=== PATIENT | female | born 1980 | race Caucasian/White ===

== ENCOUNTER 2017-04-20 00:44 | Emergency (ER) | payer MEDICAID, SELFPAY ==
[2017-04-20 00:46] VITALS: BP 137/106; PULSE 91; RESP 16; TEMP 36.4; O2SAT 99
--- NOTE | 2017-04-20 01:16 | CT_ITS ---
STUDY: CT ABDOMEN AND PELVIS WITHOUT CONTRAST REASON FOR EXAM: Female, 37 years old. Four days chest pain in upper mid abdomen after eating. Headache, neck pain, radiating to posterior. Essure placement. RADIATION DOSAGE (If Supplied By Facility): CTDIvol = ( 10.67 ) mGy, DLP = ( 525.16 ) mGycm TECHNIQUE: Transaxial 2.5 mm images were obtained from the dome of the diaphragm to the symphysis pubis without oral contrast, and without intravenous contrast. Sagittal and coronal images were reconstructed. This examination is limited for the evaluation of gastrointestinal, solid organs and vascular structures due to the lack of intravenous and oral contrast. Individualized dose optimization techniques were used for this CT. COMPARISON: None. FINDINGS: The visualized lung bases are unremarkable. The visualized portions of the heart are within normal limits. Borderline size and low attenuation. Normal gallbladder and extrahepatic biliary system. Normal spleen. Normal pancreas. Normal bilateral adrenal glands. Normal right kidney. Normal left kidney. Normal visualized stomach. Normal small intestine. Normal colon. The appendix is visualized and appears normal. Normal abdominal aorta. Normal inferior vena cava. Normal retroperitoneum. Normal urinary bladder. Retroverted uterus contains an Essure type device. Normal-appearing adnexa. Normal abdominal wall. Normal osseous structures. CT/Abdomen/Pelvis without Cont IMPRESSION: Borderline hepatomegaly and hepatic steatosis. There is no acute abdomen and pelvic pathology. Electronically Signed: Nishi Martinez MD at 2:11 EST , Service support ,
--- NOTE | 2017-04-20 01:18 | ED.VISSUMM ---
- ER Visit Summary Date of Service: 04/20/17 Chief Complaint: [Abdominal pain] History of Present Illness: The patient is a 37 F [who presents the emergency department with abdominal pain. It is epigastric and bilateral upper quadrant spreads downwards. It is intermittent. It is worse after eating. She has had diarrhea after eating as well. She states is a stabbing pain. She feels like it is a reverse heartburn. She has had some associated nausea. It has lasted for about 1 hour tonight. No fevers or chills. It has been going on for the last 4 days. She never had similar pain in the past. She has had tubal coils but no other surgeries. She is otherwise healthy and takes no other medications. She does smoke. She denies alcohol use. Additionally complains of some right shoulder and neck pain that started this morning. She took purulent ibuprofen for this but it did not help. Physical Examination: [] Blood pressure 137/106 other vitals within normal limits WN WD NAD PERRL EOMI MMM NECK supple and nontender, no masses RRR no murmur rub or gallop, no peripheral edema, symmetric radial pulses CTAB no respiratory distress ABDOMEN is soft a and tender in the epigastric bilateral upper quadrants, normal bowel sounds, no distension, no rebound or guarding SKIN is warm and dry no rashes Alert and Oriented x3, CN II-XII in tact, no motor or sensory deficits, gait normal No lymphadenopathy Test Results: [] Emergency Department Course and Treatment: [Screening labs are unremarkable. Patient was feeling improved after morphine and Zofran in the emergency department. CT of abdomen was obtained gallbladder specifically is normal. She does have a borderline fatty liver. Results were discussed with the patient. She will be treated for gastritis. She is encouraged to follow-up with her primary physician as we did discuss the differential for upper quadrant abdominal pain which could still include gallbladder dysfunction. She is given precautions for which to return. She will be discharged home with Zofran and omeprazole Treatment Plan: [] Disposition: [Discharge] Impression: [Abdominal pain, bilateral upper quadrant] This note was generated with [employer] dictation software. It may contain incorrect words, spelling, and punctuation that were not noted in review of the chart prior to signing ED Disposition - Plan for ED Patient: Chief Complaint: Abd Pain Referrals: José Miguel Puente MD [Primary Care Provider] -
[2017-04-20] MEDS: Ondansetron 4 MG/2 ML Vial IV (01:33)
[2017-04-20 01:38] LABS: Absolute Lymphocyte Count 3.89 X10^3/ul (0.83-4.51); Absolute Neutrophil Count 4.9 X10^3/uL (2.0-7.7); Basophil# 0.02 X10^3/uL; Basophil% 0.2 % (0-1); Differential Indicated SCAN CRITERIA MET; Eosinophils% 3.1 % (0-5); Hemoglobin 14.2 g/dl (12.0-15.0); Lymphocyte # 3.89 X10^3/ul (4.0); Lymphocyte % 40.2 % (19-41); Mean Corpuscular Hgb 29.9 pg (27.0-32.0); Mean Corpuscular Volume 90.5 fL (81-99); Mean Platelet Vol. 9.8 fl (6.2-12.0); Monocyte# 0.54 X10^3/uL; Monocyte% 5.6 % (0-10); Neutrophil # 4.92 X10^3/uL (2.7-7.7); Neutrophil % 50.8 % (47-70); POSITIVE COUNT NO; POSITIVE DIFFERENTIAL NO; POSITIVE MORPHOLOGY YES; Platelet Count 350 K/mm3 (150-450); RBC Distribution Width CV 13.2 % (11.6-14.6); RBC Distribution Width SD 43.6 fl (35.1-43.9); Red Blood Count 4.75 M/mm3 (4.2-5.4); White Blood Count 9.7 K/mm3 (4.4-11.0)
[2017-04-20 01:43] LABS: Color, Urine Yellow (Yellow); Glucose, Dipstick Normal (Normal); Ketone-Dipstick 5 mg/dl (Negative); Leukocyte Esterase-Dipstick 25 /ul (Negative); Nitrite-Dipstick Negative (Negative); Occult Blood-Urine 50 /ul (Negative); Protein-Dipstick 30 mg/dl (Negative); Urine Bilirubin Dipstick Negative (Negative); Urine Clarity Cloudy (Clear); Urine Urobilinogen 1 mg/dl (Normal)
[2017-04-20 01:52] LABS: ALB/GLOB Ratio 0.9 RATIO (0.9-2.4); AST(SGOT) 15 U/L (15-37); Alanine Aminotransfer ALT/SGPT 34 U/L (13-56); Albumin, Serum 3.3 g/dL (3.2-5.0); Alkaline Phosphatase 90 U/L (45-117); Anion Gap 6 (5-15); BUN 16 mg/dL (7-18); BUN/Creat Ratio 24.4 RATIO (10-20); Calcium,Total 8.6 mg/dL (8.5-10.1); Chloride 109 mmol/L (98-107); Creatinine, Serum 0.66 mg/dL (0.55-1.02); EST Glomerular Filtration Rate 109 mL/min (>60); Est Glom Filt Rate - Afr Amer 132 mL/min (>60); Estimated Creatinine Clearance 102.74 ml/min; Globulin 3.5 g/dL (2.2-4.2); Glucose 106 mg/dL (74-106); Lipase 139 U/L (73-393); Potassium 3.7 mmol/L (3.5-5.1); Protein, Total 6.8 g/dL (6.4-8.2); Sodium Level 140 mmol/L (136-145)
[2017-04-20 01:56] LABS: Bacteria 1+ /hpf (None Seen); Mucous, Urine 2+ /hpf (<or=2+); Red Blood Cells-Urine 0-5 SEEN /hpf (0-5); Squamous Epithelial Cells - UA 0-5 SEEN /hpf (5-10); White Blood Cells 0-5 SEEN /hpf (0-5)
[2017-04-20 02:11] LABS: Differential Comment SCANNED
--- NOTE | 2017-04-20 02:32 | ED.DEP ---
ED Disposition - Plan for ED Patient: Chief Complaint: Abd Pain Instructions: ED Abdominal Pain Unkn Cause Prescriptions: Ondansetron [Zofran Odt] 4 mg PO Q8H PRN PRN #10 tablet PRN Reason: Nausea Omeprazole [Prilosec] 20 mg PO BID #28 capsule Referrals: José Miguel Puente MD [Primary Care Provider] - 3-5 Days
[2017-04-20 02:39] VITALS: BP 127/80; PULSE 77; RESP 18; O2SAT 100
== END 2017-04-20 02:40 | disposition home or self-care (01) ==
PROVIDERS: Emergency Provider Emergency Medicine; Family Provider Family Medicine; PCP Family Medicine
DX: R10.11 Right upper quadrant pain (principal); R10.12 Left upper quadrant pain; R51 Headache; R19.7 Diarrhea, unspecified; E66.9 Obesity, unspecified; F17.200 Nicotine dependence, unspecified, uncomplicated
CPT/HCPCS: 74176; 80053; 81001; 83690; 85025; 96374; 96375; 99283; J7030; A4216; J2405

== ENCOUNTER 2017-06-04 07:04 | Emergency (ER) | payer MEDICAID, SELFPAY ==
[2017-06-04 07:05] VITALS: BP 144/91; PULSE 90; RESP 16; TEMP 36.1; O2SAT 100; BMI 30.2
--- NOTE | 2017-06-04 07:16 | ED.VISSUMM ---
- ER Visit Summary Date of Service: 06/04/17 Chief Complaint: Painful lump left anterior neck History of Present Illness: The patient is a 37 F who has been ill with URI like symptoms for approximately a month. She was seen earlier this week at the urgent care and had blood work to assess her thyroid because of a palpable lump. She denies any hot or cold intolerance. She denies any polyp urea, polydipsia or polyphagia. She denies headache. She denies photophobia. She denies any change in her vision. She denies earache. She does complain of nasal congestion. She denies sore throat or difficulty breathing or swallowing. She denies change in voice. She localizes the pain left anterior cervical lymph node chain. She denies rash. She denies weight loss or weight gain. She does have a cough which is nonproductive. She denies dyspnea, dyspnea on exertion or chest discomfort. She has no GI symptoms. She denies myalgias or arthralgias. Physical Examination: Vital signs are remarkable for an elevated blood pressure of 144/91. HEENT exam is remarkable for nasal congestion. Posterior pharynx without erythema or exudate. Uvula midline. Trachea is midline. There is no stridor. She has a palpable mobile firm left anterior cervical node. Heart is regular without murmur, gallop or rub. S1 and S2 are normal. Lungs are clear to auscultation with good movement of air bilaterally. There is no rash or skin lesions noted. She is alert and oriented ?3. Test Results: None are indicated Emergency Department Course and Treatment: Patient was told my opinion of her condition and that she would receive a prescription for antibiotic. Treatment Plan: Azithromycin Disposition: Discharged to home with appropriate home-going instructions Impression: Cervical adenitis This note was generated with [employer] dictation software. It may contain incorrect words, spelling, and punctuation that were not noted in review of the chart prior to signing ED Disposition - Plan for ED Patient: Disposition: Home or Assisted Living Chief Complaint: General Illness Instructions: ED Cervical Adenitis Abx Tx Prescriptions: Azithromycin [Zithromax Z-Wilfred] 250 mg PO UD #1 box Referrals: José Miguel Puente MD [Primary Care Provider] - 10-14 Days if not better
== END 2017-06-04 07:38 | disposition home or self-care (01) ==
PROVIDERS: Emergency Provider Emergency Medicine; Family Provider Family Medicine; PCP Family Medicine
DX: I88.9 Nonspecific lymphadenitis, unspecified (principal); R03.0 Elevated blood-pressure reading, without diagnosis of hypertension; Z72.0 Tobacco use
CPT/HCPCS: 99282

== ENCOUNTER → 2017-11-24 14:07 | Outpatient (CLI) | payer MEDICAID, SELFPAY ==
--- NOTE | 2017-11-24 15:06 | NEURO ---
NCS and/or EMG Patient Report Ordering Doctor: Wilver Milton DATE OF SERVICE: 11/24/17 Lena Chaparro is a 37-year old female who presents for electrodiagnostic testing of the upper limbs. She reports progressively worsening numbness and tingling in both hands. Electrodiagnostic findings: Median motor nerve demonstrates prolonged distal latency with normal amplitude and reduced conduction velocity bilaterally. Ulnar motor responses are within normal limits bilaterally. Prolonged median sensory distal latency bilaterally. Normal ulnar and radial sensory responses. Normal median and ulnar f wave. On needle EMG, all muscles tested in the upper limbs show no evidence of denervation with normal motor unit action potentials. Electrodiagnostic impression: This is an abnormal study in the upper limbs 1. Electrodiagnostic findings demonstrate bilateral median mononeuropathy. This is consistent with a moderate to advanced bilateral carpal tunnel syndrome. If there are any further questions, please not hesitate to contact me
== END ==
PROVIDERS: Family Provider Family Medicine; PCP Family Medicine; Referring Provider Family Medicine; Visit Provider Family Medicine
DX: G56.03 Carpal tunnel syndrome, bilateral upper limbs (principal)
CPT/HCPCS: 95886; 95911

== ENCOUNTER 2017-11-25 02:28 | Emergency (ER) | payer MEDICAID, SELFPAY ==
--- NOTE | 2017-11-25 02:30 | RAD_ITS ---
STUDY: X-RAY - LEFT SHOULDER REASON FOR EXAM: Female, 37 years old. Pain TECHNIQUE: 4 view(s) of the shoulder. COMPARISON: None. FINDINGS: Normal glenohumeral articulation. Normal acromioclavicular joint. Normal acromion. Normal humeral head and visualized proximal humerus. The soft tissue structures are unremarkable. Normal visualized pulmonary apex. RAD/Shoulder min 2 Views IMPRESSION: Normal x-ray examination of the shoulder. No fractures. No degenerative changes. No calcific tendinitis. Electronically Signed: Jose Bocanegra MD at 3:20 EDT Tel , Service support ,
--- NOTE | 2017-11-25 05:00 | ED.VISSUMM ---
- ER Visit Summary Date of Service: 11/25/17 Chief Complaint: Left shoulder pain History of Present Illness: The patient is a 37 F presenting for evaluation secondary to left shoulder pain. Patient reports that this evening she had an onset of shoulder pain at about 1800. She reports that it is a continuous sharp pain worse with any sort of movement. Patient states that there was not any sort of injuries associated with this, but she does endorse that she had nerve conduction studies performed on her left arm today to evaluate carpal tunnel. Patient denies any fevers chills unintended weight loss. She denies any history of IV drug abuse. She states that the pain is bad with any sort of movement of the shoulder and she feels that there is popping involved with any time that she moves it. Physical Examination: Physical exam unremarkable except for upper extremity exam. Left upper extremity shows no pain with palpation of the hand wrist forearm or elbow. No pain on palpation of the shoulder. No overlying erythema warmth or joint effusion is appreciated. Patient has pain with range of motion, but she does have passive range of motion and I was not able to appreciate any sort of crepitus or frozen shoulder. She appears to have strength of her rotator cuff. Test Results: X-rays of the shoulder showed no evidence of acute pathology per my personal review and radiology Emergency Department Course and Treatment: Patient presented for evaluation secondary to shoulder pain. Pain was addressed with Toradol. X-rays were negative. Patient had improvement on repeat evaluation. At this point I believe the patient's shoulder pain likely is associated with positioning during her nerve conduction test today, and is most likely muscular in etiology. Seems unlikely that this would be a rotator cuff pathology, and I do not feel that this is infectious. Patient was recommended treatment with ibuprofen at home and follow-up with primary care as needed. Disposition: Discharge Impression: 1. Left shoulder pain This note was generated with [employer] dictation software. It may contain incorrect words, spelling, and punctuation that were not noted in review of the chart prior to signing ED Disposition - Plan for ED Patient: Referrals: Wilver Milton MD [Primary Care Provider] -
== END 2017-11-25 05:02 | disposition home or self-care (01) ==
LOC: ED 03:24
PROVIDERS: Emergency Provider Emergency Medicine; Family Provider Family Medicine; PCP Family Medicine
DX: M25.512 Pain in left shoulder (principal)
CPT/HCPCS: 73030; 96372; 99282

== ENCOUNTER 2018-03-06 23:49 | Emergency (ER) | payer MEDICAID, SELFPAY ==
[2018-03-06 23:50] VITALS: BP 115/79; PULSE 98; RESP 14; TEMP 37.2; O2SAT 95; BMI 27.2
--- NOTE | 2018-03-07 00:18 | ED.DCSUM_ITS ---
- ER Visit Summary Date of Service: 03/07/18 Chief Complaint: [Abscess to groin] History of Present Illness: The patient is a 38 F [presents to the emergency department with complaint of soft tissue swelling times 3 days just between her leg and her vagina. Patient states she has had cysts there in the past that have required lancing and drainage. Patient denies any fevers. Patient states that she is tried squeezing it but nothing is come out. Patient complains of pain with walking.] Physical Examination: [HEENT-PERRLA, EOMI. Cranial nerves II through XII grossly intact. TMs clear. Mucous membranes moist. No adenopathy. Cardiovascular-regular rate and rhythm without murmur or ectopy Lungs-clear to auscultation, chest wall stable without crepitus or subcu emphysema Abdomen-normoactive bowel sounds, soft, nontender, no rebound or rigidity, no peritoneal signs. Extremities-intact ?4, normal range of motion, normal pulses, atraumatic. Right groin-just lateral to the labia majora there is a soft tissue swelling measuring about 2 cm in length by 1 cm in width. There is spontaneous purulent drainage noted from it. With gentle pressure I was able to express moderate amount of purulent debris. No cellulitis noted.] Test Results: [None indicated] Emergency Department Course and Treatment: [Patient was given clindamycin 300 mill grams p.o.] Treatment Plan: [Patient will start on clindamycin given a prescription for 10 [place] for severe pain.] Disposition: [Discharged home in stable condition.] Impression: [Soft tissue abscess right groin-spontaneously draining] This note was generated with [employer] dictation software. It may contain incorrect words, spelling, and punctuation that were not noted in review of the chart lucy or to signing ED Disposition - Plan for ED Patient: Chief Complaint: Abscess Referrals: Wilver Milton MD [Primary Care Provider] -
--- NOTE | 2018-03-07 00:20 | DCINST.ED_ITS ---
ED Disposition - Plan for ED Patient: Chief Complaint: Abscess Instructions: ED Staph Infec Abx Tx Only Prescriptions: Hydrocodone Bitart/Apap 5-325 [[place] 5MG-325MG] 1 tab PO Q4H PRN PRN 2 Days #10 tab PRN Reason: Pain Clindamycin HCl [Cleocin] 300 mg PO Q6H #40 cap Referrals: Wilver Milton MD [Primary Care Provider] - 5-7 Days
[2018-03-07] MEDS: Clindamycin HCl 150 MG Capsule 300 MG PO (00:32)
[2018-03-07] MEDS: HYDROcodone Bitartrate/Apap 5/325 Tablet PO (00:32)
[2018-03-07 00:39] VITALS: BP 115/79; PULSE 95; RESP 15; O2SAT 95
--- OUTSIDE RECORDS SUMMARY | 2018-05-09 12:53 | XMS RPT_ITS ---
:1980 Author Organization OHIP Care Team Providers Name Role Phone KATHERINE LOZANO (SEAMLESS [employer]BE [employer]ER) Attending Unavailable YEN LÓPEZ (PA) Attending Unavailable YEN LÓPEZ (PA) Referring Unavailable YEN LÓPEZ (PA) Attending Unavailable YEN LÓPEZ (PA) Referring Unavailable RODOLFO MANRIQUEZ Referring Unavailable WILVER MILTON Attending Unavailable WILVER MILTON Referring Unavailable ROCKY PUCKETT (PA) Attending Unavailable LOGAN COLE Attending Unavailable WILVER MILTON Referring Unavailable LOGAN COLE Referring Unavailable LOGAN COLE Attending Unavailable LOGAN COLE Referring Unavailable LOGAN COLE Attending Unavailable LOGAN COLE Referring Unavailable LOGAN COLE Admitting Unavailable LOGAN COLE Attending Unavailable Wilver Milton Primary Care Unavailable Yamila Butt Attending Unavailable Wilver Milton Primary Care Unavailable Bird Urban Attending Unavailable Rodolfo Foster Primary Care Unavailable Jessica Leyva Attending Unavailable Rodolfo Foster Primary Care Unavailable Carroll Mendoza Attending Unavailable Wilver Milotn Attending Unavailable Wilver Milton Referring Unavailable Wilver Milton Primary Care Unavailable Volodymyr Sy Attending Unavailable Wilver Milton Primary Care Unavailable PROBLEMS PROBLEMS DATE TYPE CONDITION / CODE ATTENDING STATUS SOURCE 03/07/2018 Unknown L02.91 - UngYamila burgos Active [place] Cutaneous [facility] abscess, Hospital unspecified / Repository L02.91(ICD-10) 12/21/2017 Active Carpal tunnel COLE, LOGAN Active [facility] syndrome, left Other [place] upper limb / Repository G56.02(ICD-10) 09/14/2017 Active Bipolar disorder, NA Active [facility] unspecified / [facility] [place] F31.9(ICD-10) Repository 09/14/2017 Active [address] Active [facility] screening for Main [place] lipoid disorders Repository / Z13.220(ICD-10) 06/02/[address] [facility] thyroid nodule / [facility] [place] E04.1(ICD-10) Repository 05/14/2017 Active Pain in left knee NA Active [facility] / M25.562(ICD-10) [facility] [place] Repository 05/14/2017 Active Effusion, left NA Active [facility] knee / [facility] [place] M25.462(ICD-10) Repository 05/14/2017 Active Other tear of Active [facility] medial meniscus, [facility] [place] current injury, Repository left knee, initial encounter / S83.242A(ICD-10) PROCEDURES PROCEDURES No Procedure Records FoundRESULTS RESULTS EMERGENCY DEPARTMENT Observed: 03/10/2018 Status: F Source: [place] SUMMARY 10:03 PM [facility] [place] [facility] Medical Records Department [address] [place] [address] Emergency Department Summary 03/10/18 2201 MR#: [id number] Acct: [id number] Name: LENA LARA Kj Rep #: [id number] : 1980 38 From: Bird Urban MD PCP: Wilver Milton MD Status: REG ER - ER Visit Summary Date of Service: 03/10/18 Chief Complaint: Chest burning History of Present Illness: The patient is a 38 F who is burning in her chest. It started an hour ago. She describes burning in the retrosternal area. Nothing makes it better or worse. She does have a history of GERD. She tried milk without any relief. She was concerned because her mom had a heart attack and had a similar presentation. Physical Examination: Vital signs reviewed. HEENT exam unremarkable. Heart is regular rate and rhythm without murmurs. Lungs are clear to auscultation. She does have chest tenderness to palpation in the midsternal area. Abdomen is soft and nontender. Extremities reveal no edema. Skin exam normal. Neurologic exam normal. Test Results: EKG was normal sinus rhythm with a T wave inversion in lead III only. No other ST changes Emergency Department Course and Treatment: Patient was given a GI cocktail and feels much better. I feel this is likely GERD. I will send the patient home with [facility]. She will follow-up with her PCP. Treatment Plan: [] Disposition: Discharge Impression: GERD This note was generated with Cardiio dictation software. It may contain incorrect words, spelling, and punctuation that were not noted in review of the chart prior to signing ED Disposition - Plan for ED Patient: Chief Complaint: Chest Pain Referrals: Wilver Milton MD [Primary Care Provider] - What to do if you have Problems For any increased pain, shortness of breath, bleeding, nausea or vomiting, chest pain, or any unexpected problems, contact your Primary Care Provider. Call [facility] ([phone]) or report to the closest Emergency Room. Call 911 if necessary. 03/10/182202 <Electronically signed by Bird Urban MD> Date Bird Urban MD Cosigner Signature (If Indicated): Date CC: Wilver Milton MD DISCHARGE INSTRUCTION Observed: 03/10/2018 Status: F Source: [place] 10:03 PM [facility] [place] [facility] [facility] Medical Records Department [address] [place] [address] Discharge Instruction 03/10/182202 MR#: [id number] Acct: [id number] Name: LENA LARA Rep #: [id number] : 1980 38 From: Bird Urban MD PCP: Wilver Milton MD Status: REG ER ED Disposition - Plan for ED Patient: Disposition: Home or Assisted Living Chief Complaint: Chest Pain Instructions: ED GERD Prescriptions: Omeprazole [Prilosec] 20 mg PO DAILY #30 cap Referrals: Wilver Milton MD [Primary Care Provider] - What to do if you have Problems For any increased pain, shortness of breath, bleeding, nausea or vomiting, chest pain, or any unexpected problems, contact your Primary Care Provider. Call [facility] ([phone]) or report to the closest Emergency Room. Call 911 if necessary. 03/10/182202 <Electronically signed by Bird Urban MD> Date Bird Urban MD Cosigner Signature (If Indicated): Date CC: Wilver Milton MD DISCHARGE INSTRUCTION Observed: 03/07/2018 Status: F Source: [place] 12:20 AM [facility] Medical Records Department [address] [place] [address] Discharge Instruction 03/07/18 0018 MR#: [id number] Acct: [id number] Name: LENA LARA Rep #: [id number] : 1980 38 From: Yamila Butt DO PCP: Wilver Milton MD Status: PRE ER ED Disposition - Plan for ED Patient: Chief Complaint: Abscess Instructions: ED Staph Infec Abx Tx Only Prescriptions: Hydrocodone Bitart/Apap 5-325 [Rembert 5MG-325MG] 1 tab PO Q4H PRN PRN 2 Days #10 tab PRN Reason: Pain Clindamycin HCl [Cleocin] 300 mg PO Q6H #40 cap Referrals: Wilver Milton MD [Primary Care Provider] - 5-7 Days What to do if you have Problems For any increased pain, shortness of breath, bleeding, nausea or vomiting, chest pain, or any unexpected problems, contact your Primary Care Provider. Call [facility] ([phone]) or report to the closest Emergency Room. Call 911 if necessary. 03/07/18 0020 <Electronically signed by Yamila Butt DO> Date Yamila Butt DO Cosigner Signature (If Indicated): Date CC: Wilver Milton MD EMERGENCY DEPARTMENT Observed: 03/07/2018 Status: F Source: [place] SUMMARY 12:18 AM [facility] [place] [facility] [facility] Medical Records Department [address] [place] [address] Emergency Department Summary 03/07/18 0016 MR#: [id number] Acct: [id number] Name: LENA LARA Rep #: [id number] : 1980 38 From: Yamila Butt DO PCP: Wilver Milton MD Status: PRE ER - ER Visit Summary Date of Service: 03/07/18 Chief Complaint: [Abscess to groin] History of Present Illness: The patient is a 38 F [presents to the emergency department with complaint of soft tissue swelling times 3 days just between her leg and her vagina. Patient states she has had cysts there in the past that have required lancing and drainage. Patient denies any fevers. Patient states that she is tried squeezing it but nothing is come out. Patient complains of pain with walking.] Physical Examination: [HEENT-PERRLA, EOMI. Cranial nerves II through XII grossly intact. TMs clear. Mucous membranes moist. No adenopathy. Cardiovascular-regular rate and rhythm without murmur or ectopy Lungs-clear to auscultation, chest wall stable without crepitus or subcu emphysema Abdomen-normoactive bowel sounds, soft, nontender, no rebound or rigidity, no peritoneal signs. Extremities-intact 4, normal range of motion, normal pulses, atraumatic. Right groin-just lateral to the labia majora there is a soft tissue swelling measuring about 2 cm in length by 1 cm in width. There is spontaneous purulent drainage noted from it. With gentle pressure I was able to express moderate amount of purulent debris. No cellulitis noted.] Test Results: [None indicated] Emergency Department Course and Treatment: [Patient was given clindamycin 300 mill grams p.o.] Treatment Plan: [Patient will start on clindamycin given a prescription for 10 Rembert for severe pain.] Disposition: [Discharged home in stable condition.] Impression: [Soft tissue abscess right groin-spontaneously draining] This note was generated with Cardiio dictation software. It may contain incorrect words, spelling, and punctuation that were not noted in review of the chart prior to signing ED Disposition - Plan for ED Patient: Chief Complaint: Abscess Referrals: Wilver Milton MD [Primary Care Provider] - What to do if you have Problems For any increased pain, shortness of breath, bleeding, nausea or vomiting, chest pain, or any unexpected problems, contact your Primary Care Provider. Call [facility] ([phone]) or report to the closest Emergency Room. Call 911 if necessary. 03/07/18 0018 <Electronically signed by Yamila Butt DO> Date Yamila Butt DO Cosigner Signature (If Indicated): Date CC: Wilver Milton MD PROGRESS Observed: 02/28/2018 Status: COMPLETED Source: [place] 1:40 PM [facility] [place] REPOSITORY HNO ID: [id number] Author: Anabel Gomez Ma Service: (none) Author Type: (none) Type: Progress Notes Filed: 02/28/2018 1:56 PM Note Text: PT ASSESSMENT - CASTING ROOM Lena presents for Application of brace. Applied Chela and Naik Gel wrist brace to Left wrist. Patient tolerated well. Patient has been instructed in Care and proper application of brace. Patient tolerated well. Anabel Gomez Ma PROGRESS Observed: 02/28/2018 Status: COMPLETED Source: [place] 1:32 PM [facility] REPOSITORY HNO ID: [id number] Author: Logan Cole Service: (none) Author Type: Physician Type: Progress Notes Filed: 02/28/2018 1:56 PM Note Text: Logan Cole MD Department of Orthopaedics Orthopaedics [address] [facility] [address] Dept: [phone] Dept February 28, 2018 CHIEF COMPLAINT: Post Op (6 week 3 days post op left CTR). ASSESSMENT: G56.02 Carpal tunnel syndrome of left wrist (primary encounter diagnosis) SUMMARY/PLAN: patient is 6 weeks as post left carpal tunnel release. She's doing very well. She had quite a bit of discomfort directly after surgery but over time now she is very pleased with her results. She would like to hold off on the right side for a while. She'll get back in touch with the office if her when she decides to go forward with the right. In the meantime, we'll give her a gel brace for the left palm. Exam: surgical site is healed nicely. Full range of motion. Neurovascular exam intact. Supporting Information Below: Medications: No current outpatient prescriptions on file. No current facility-administered medications for this visit. Allergies: Vagistat-1 [Tioconazole] This note was partially generated using Cardiio voice recognition system, and there may be some incorrect words, spellings, and punctuation that were not noted in checking the note before saving. Logan Cole MD PROGRESS Observed: 02/28/2018 Status: COMPLETED Source: [place] 1:03 PM [facility] REPOSITORY HNO ID: [id number] Author: Klaudia Boateng Ma Service: (none) Author Type: (none) Type: Progress Notes Filed: 02/28/2018 1:56 PM Note Text: AMB ROOMING INTAKE FLOWSHEET DATA Risk Screening Do you have concerns about personal safety or safety in the home?: No Pain Pain Score: 3/10 Pain Location: Hand-Left Description: Other: See comment (deep bruise) Duration Amount of Time: (post op) Frequency: Continuous Intervention: Other: See comment (none) Patient here today for 6 week 3 days post op left CTR. States she has received comments about how red the incision area is. Area feels like a deep bruise. Would like to get a gel brace today. JDOV Observed: 02/28/2018 Status: COMPLETED Source: [place] 1:00 PM [facility] REPOSITORY Office Visit (ORTHWS) LENA LARA ([id number]) 1980 F Date Time Provider Department 02/28/18 1:00 PM LOGAN COLE During your visit today, we recorded the following information about you: Klaudia Boateng Ma 02/28/2018 1:56 PM Signed AMB ROOMING INTAKE FLOWSHEET DATA Risk Screening Do you have concerns about personal safety or safety in the home?: No Pain Pain Score: 3/10 Pain Location: Hand-Left Description: Other: See comment (deep bruise) Duration Amount of Time: (post op) Frequency: Continuous Intervention: Other: See comment (none) Patient here today for 6 week 3 days post op left CTR. States she has received comments about how red the incision area is. Area feels like a deep bruise. Would like to get a gel brace today. Logan Cole MD 02/28/2018 1:56 PM Signed Logan Cole MD Department of Orthopaedics Orthopaedics [address] [facility] [address] Dept: [phone] Dept February 28, 2018 CHIEF COMPLAINT: Post Op (6 week 3 days post op left CTR). ASSESSMENT: G56.02 Carpal tunnel syndrome of left wrist (primary encounter diagnosis) SUMMARY/PLAN: patient is 6 weeks as post left carpal tunnel release. She's doing very well. She had quite a bit of discomfort directly after surgery but over time now she is very pleased with her results. She would like to hold off on the right side for a while. She'll get back in touch with the office if her when she decides to go forward with the right. In the meantime, we'll give her a gel brace for the left palm. Exam: surgical site is healed nicely. Full range of motion. Neurovascular exam intact. Supporting Information Below: Medications: No current outpatient prescriptions on file. No current facility-administered medications for this visit. Allergies: Vagistat-1 [Tioconazole] This note was partially generated using Cardiio voice recognition system, and there may be some incorrect words, spellings, and punctuation that were not noted in checking the note before saving. MD Anabel Pacheco Ma 02/28/2018 1:56 PM Signed PT ASSESSMENT - CASTING ROOM Lena presents for Application of brace. Applied Chela and Naik Gel wrist brace to Left wrist. Patient tolerated well. Patient has been instructed in Care and proper application of brace. Patient tolerated well. Anabel Gomez Ma Referring Provider: LOGAN COLE [[id number]] Allergies As of Date: 02/28/2018 Noted Allergy Reaction VAGISTAT-1 (TIOCONAZOLE) 01/30/2005 7 - Swelling Date Reviewed: 02/28/2018 Reviewed by: Logan Cole - Fully Assessed Reason for Visit: Post Op [174] Cmt: 6 week 3 days post op left CTR Primary Visit Diagnosis:Carpal tunnel syndrome of left wrist [G56.02] Problem List As Of Date 02/28/2018 Noted Resolved ABNL FINDINGS ON SCREEN [O28.9] INVALID FOR*10/26/2007 SUPRF HIGH RISK NEC [O09.899] INVALID FOR*10/26/2007 ABDOMINAL PAIN RUQ [R10.11] INVALID FOR*10/26/2007 Bipolar disorder, unspecified (HCC) [F31.9] INVALID FOR* More... FIBROADENOSIS OF BREAST [N60.29] SEBACEOUS CYST [L72.3] INVALID FOR* Chronic pain of left knee [M25.562, G89.29] INVALID FOR* Mixed hyperlipidemia [E78.2] INVALID FOR* Carpal tunnel syndrome of left wrist [G56.02] INVALID FOR* More... Gastroesophageal reflux disease [K21.9] INVALID FOR* Encounter Status:Closed by LOGAN COLE MD on 02/28/18 PROGRESS Observed: 01/24/2018 Status: COMPLETED Source: [place] 1:43 PM [facility] REPOSITORY HNO ID: [id number] Author: Klaudia Boateng Ma Service: (none) Author Type: (none) Type: Progress Notes Filed: 01/24/2018 1:53 PM Note Text: Patient presents for suture removal. The wound is well healed without signs of infection. 2 sutures are removed. Patient given verbal instructions on how to care for wound. She verbalized understanding. PROGRESS Observed: 01/24/2018 Status: COMPLETED Source: [place] 1:43 PM [facility] REPOSITORY HNO ID: [id number] Author: Logan Cole Service: (none) Author Type: Physician Type: Progress Notes Filed: 01/24/2018 1:53 PM Note Text: Logan Cole MD Department of Orthopaedics Orthopaedics [address] [place] [address] Dept: [phone] Dept January 24, 2018 CHIEF COMPLAINT: Surgical Followup (1 week 3 days post left CTR). ASSESSMENT: G56.02 Carpal tunnel syndrome of left wrist (primary encounter diagnosis) SUMMARY/PLAN: patient is a 10 days status was left carpal tunnel release. She's doing very well and has only minimal and appropriate discomfort. She has significant improvement in her preoperative symptoms. She will consider getting the right one done at some point down the line but would like to get the left hand completely recovered. follow-up as needed Supporting Information Below: Medications: No current outpatient prescriptions on file. No current facility-administered medications for this visit. Allergies: Vagistat-1 [Tioconazole] This note was partially generated using Cardiio voice recognition system, and there may be some incorrect words, spellings, and punctuation that were not noted in checking the note before saving. Logan Cole MD PROGRESS Observed: 01/24/2018 Status: COMPLETED Source: [place] 1:18 PM [facility] REPOSITORY HNO ID: [id number] Author: Anabel Gomez Ma Service: (none) Author Type: (none) Type: Progress Notes Filed: 01/24/2018 1:53 PM Note Text: Patient presents with: Surgical Followup: 1 week 3 days post left CTR AMB ROOMING INTAKE FLOWSHEET DATA Risk Screening Do you have concerns about personal safety or safety in the home?: No Pain Pain Score: 6/10 Pain Location: Hand-Left Description: Sore Duration Amount of Time: 10 Duration Units: Days Frequency: Intermittent Sutures intact. No redness or drainage. Has some soreness with certain movements of her hand. Taking no med's for the pain. CNOV Observed: 01/24/2018 Status: COMPLETED Source: [place] 1:10 PM [facility] REPOSITORY Office Visit (ORTHWS) LENA LARA ([id number]) 1980 F Date Time Provider Department 01/24/18 1:10 PM LOGAN COLE During your visit today, we recorded the following information about you: Anabel Gomez Chantal 01/24/2018 1:53 PM Signed Patient presents with: Surgical Followup: 1 week 3 days post left CTR AMB ROOMING INTAKE FLOWSHEET DATA Risk Screening Do you have concerns about personal safety or safety in the home?: No Pain Pain Score: 6/10 Pain Location: Hand-Left Description: Sore Duration Amount of Time: 10 Duration Units: Days Frequency: Intermittent Sutures intact. No redness or drainage. Has some soreness with certain movements of her hand. Taking no med's for the pain. Logan Cole MD 01/24/2018 1:53 PM Signed Logan Cole MD Department of Orthopaedics Orthopaedics [address] [facility] [address] Dept: [phone] Dept January 24, 2018 CHIEF COMPLAINT: Surgical Followup (1 week 3 days post left CTR). ASSESSMENT: G56.02 Carpal tunnel syndrome of left wrist (primary encounter diagnosis) SUMMARY/PLAN: patient is a 10 days status was left carpal tunnel release. She's doing very well and has only minimal and appropriate discomfort. She has significant improvement in her preoperative symptoms. She will consider getting the right one done at some point down the line but would like to get the left hand completely recovered. follow-up as needed Supporting Information Below: Medications: No current outpatient prescriptions on file. No current facility-administered medications for this visit. Allergies: Vagistat-1 [Tioconazole] This note was partially generated using Cardiio voice recognition system, and there may be some incorrect words, spellings, and punctuation that were not noted in checking the note before saving. MD Klaudia Pacheco Ma 01/24/2018 1:53 PM Signed Patient presents for suture removal. The wound is well healed without signs of infection. 2 sutures are removed. Patient given verbal instructions on how to care for wound. She verbalized understanding. Referring Provider: LOGAN COLE [[id number]] Allergies As of Date: 01/24/2018 Noted Allergy Reaction VAGISTAT-1 (TIOCONAZOLE) 01/30/2005 7 - Swelling Date Reviewed: 01/24/2018 Reviewed by: Logan Cole - Fully Assessed Reason for Visit: Surgical Followup [104] Cmt: 1 week 3 days post left CTR Primary Visit Diagnosis:Carpal tunnel syndrome of left wrist [G56.02] Problem List As Of Date 01/24/2018 Noted Resolved ABNL FINDINGS ON SCREEN [O28.9] INVALID FOR*10/26/2007 SUPRF HIGH RISK NEC [O09.899] INVALID FOR*10/26/2007 ABDOMINAL PAIN RUQ [R10.11] INVALID FOR*10/26/2007 Bipolar disorder, unspecified (HCC) [F31.9] INVALID FOR* More... FIBROADENOSIS OF BREAST [N60.29] SEBACEOUS CYST [L72.3] INVALID FOR* Chronic pain of left knee [M25.562, G89.29] INVALID FOR* Mixed hyperlipidemia [E78.2] INVALID FOR* Carpal tunnel syndrome of left wrist [G56.02] INVALID FOR* More... Gastroesophageal reflux disease [K21.9] INVALID FOR* Encounter Status:Closed by LOGAN COLE MD on 01/24/18 NURSING PROG Observed: 01/14/2018 Status: COMPLETED Source: [place] 1:33 PM [facility] REPOSITORY HNO ID: [id number] Author: Erica (RnDavid Sorensen RN Service: Nursing Author Type: Registered Nurse Type: Nursing Progress Note Filed: 01/14/2018 1:34 PM Note Text: Nursing Progress Note Patient Name: Lena Lara Patient Location: [facility] 1307 iV removed. Site without redness or swelling. Homegoing instructions given. Pt verbalizes understanding. 1312 Pt discharged to home via wheelchair to car accomp by staff and family in stable cond. This note was completed by: Erica Sorensen RN PT ED Observed: 01/14/2018 Status: COMPLETED Source: [place] 1:32 PM [facility] [place] REPOSITORY HNO ID: [id number] Author: Erica Dimas) ALBERT Sorensen Service: Nursing Author Type: Registered Nurse Type: Patient Education Filed: 01/14/2018 1:33 PM Note Text: POST OP LEARNING RESPONSE INSTRUCTION PROVIDED TO: Patient and family member METHOD OF INSTRUCTION: Individual instruction Written instruction - handouts Verbal instruction PATIENT / FAMILY RESPONSE: Information received as demonstrated by interest and questions FOLLOW-UP PLAN: Patient instructed to call with any further issues SUPPLEMENTAL MATERIAL: Post op discharge instructions REFERRAL (RECOMMENDATION): None Electronically Signed By: Erica Sorensen RN In Department: [facility] SURGERY ANES POST Observed: 01/14/2018 Status: COMPLETED Source: [place] 1:12 PM [facility] [place] REPOSITORY HNO ID: [id number] Author: García Lucas Service: Anesthesiology Author Type: Anesthesiologist Type: Anesthesia PostOp Filed: 01/14/2018 3:18 PM Note Text: POST ANESTHESIA EVALUATION NOTE SERVICE DATE: 01/14/2018 SERVICE TIME: 1300 : 1980 Vitals: 01/14/18 0937 01/14/18 1130 Temp: 36.8 ?C (98.2 ?F) 36.1 ?C (97 ?F) 01/14/18 1130 01/14/18 1145 01/14/18 1200 01/14/18 1215 BP: 118/63 122/60 103/62 104/62 01/14/18 1130 01/14/18 1145 01/14/18 1200 01/14/18 1215 Pulse: 108 96 89 84 01/14/18 1130 01/14/18 1145 01/14/18 1200 01/14/18 1215 Resp: 16 16 16 16 01/14/18 1130 01/14/18 1145 01/14/18 1200 01/14/18 1215 SpO2: 95% 93% 93% 93% Validated Vital Signs: Yes POST ANES STATUS: No apparent anesthetic complications. The patient is appropriately hydrated with stable respiratory and cardiovascular status. Patient has safe and adequate airway control. The patient has appropriate pain relief and no significant post operative nausea or vomiting. The patient has achieved baseline mental status. Further assessment by Anesthesia Service: None Other Remarks: SIGNATURE: García Lucas MD PATIENT NAME: Lena Lara DATE: January 14, 2018 TIME: 3:18 PM PAGER/CONTACT #: [phone] NURSING PROG Observed: 01/14/2018 Status: COMPLETED Source: [place] 11:53 AM [facility] REPOSITORY HNO ID: [id number] Author: Anay HolmRn) ALBERT Bravo Service: Nursing Author Type: Registered Nurse Type: Nursing Progress Note Filed: 01/14/2018 12:21 PM Note Text: 1130 Received from or Drowsy No c/o pain 1142 Pt shivering Demerol 12.5mg iv 1150 Shivering stopped 1210 Pt comfortable OPERATIVE NO Observed: 01/14/2018 Status: COMPLETED Source: [place] 10:51 AM [facility] REPOSITORY HNO ID: [id number] Author: Logan Cole Service: Orthopaedic Surgery Author Type: Physician Type: Operative Report Filed: 01/14/2018 1:14 PM Note Text: [place] [address] [place] OPERATIVE REPORT NAME:Lena Lara [id number] DATE: January 14, 2018 AGE: [age] year old SURGEON 1: Logan Cole M.D. OPERATION: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 Extremities: No deformities, edema, skin discoloration, clubbing or cyanosis. Good capillary refill. Peripheral pulses: Normal Neuro: Gait normal. ASSESSMENT/PLAN: 1. Gastritis without bleeding, unspecified chronicity, unspecified gastritis type - ICD9: 535.50, ICD10: K29.70 (primary diagnosis) - OMEPRAZOLE 20 MG CAPSULE,DELAYED RELEASE Continue omeprazole X 1 month. Written info on gastritis provided. Encouraged bland diet. Encouraged smoking cessation. 2. Tobacco abuse - ICD9: 305.1, ICD10: Z72.0 - Cessation encouraged. 3. Hematochezia - ICD9: 578.1, ICD10: K92.1 - FECAL OCCULT BLOOD TEST (encouraged to wait until gastritis is improved prior to collection). Discussed treatment plan and patient voices understanding. Patient's questions answered appropriately. Medications and potential side effects were discussed and patient voices understanding. Return to the office as scheduled or as needed for worsening/no improvement. PHILLIP Mckeon CNP 04/21/2017 10:33 AM Signed 1. Continue omeprazole for a month. 2. [place] diet. 3. Review handout on gastritis. 4. Try to quit smoking. 5. Do the stool test. 6. Recheck in a month. Referring Provider: SELF [200] Allergies As of Date: 04/21/2017 Noted Allergy Reaction VAGISTAT-1 (TIOCONAZOLE) 01/30/2005 7 - Swelling Date Reviewed: 04/21/2017 Reviewed by: Shari Salgado Care Specialist - Fully Assessed Reason for Visit: Pain [78] Cmt: patient having pain in uper abdomen below breasts Primary Visit Diagnosis:Gastritis without bleeding, unspecified chronicity, unspecified gastritis type [K29.70] Other Visit Diagnoses:Tobacco abuse [Z72.0] Hematochezia [K92.1] Order(s):omeprazole (PRILOSEC) 20 mg capsuleTake 1 capsule by mouth daily before breakfast.Disp: 30 capsuleRfl: 1 FECAL OCCULT BLOOD TEST [SQIFOBT] Order #: [id number] FUTURE Prescriptions as of 04/21/2017 Sig: CYCLOBENZAPRINE 10 MG TABLET Take 1 tablet by mouth daily * OMEPRAZOLE 20 MG CAPSULE,GOKUL* Take 1 capsule by mouth daily* Problem List As Of Date 04/21/2017 Noted Resolved ABNL FINDINGS ON SCREEN [O28.9] INVALID FOR*10/26/2007 SUPRF HIGH RISK NEC [O09.899] INVALID FOR*10/26/2007 ABDOMINAL PAIN RUQ [R10.11] INVALID FOR*10/26/2007 BIPOLAR DISORDER NOS [F31.9] INVALID FOR* FIBROADENOSIS OF BREAST [N60.29] SEBACEOUS CYST [L72.3] INVALID FOR* Chronic pain of left knee [M25.562, G89.29] INVALID FOR* Other instructions from your clinician: 1. Continue omeprazole for a month. 2. [place] diet. 3. Review handout on gastritis. 4. Try to quit smoking. 5. Do the stool test. 6. Recheck in a month. Prescriptions ordered this encounter Disp Refills Start End OMEPRAZOLE 20 MG CAPSULE,DELAYED REL* 30 c* 1 04/21/2017 Route: ORAL Sig: Take 1 capsule by mouth daily before breakfast. Medications Discontinued During This Encounter meloxicam (MOBIC) 15 mg tablet 30 t* 0 11/09/2016 04/21/2017 Route: ORAL Sig: Take 1 tablet by mouth once daily. Disc: Course of therapy completed lamoTRIgine (LAMICTAL) 25 mg tablet 04/08/2016 04/21/2017 Class: Med Update Route: ORAL Sig: Take 1 tablet by mouth twice daily. Disc: Discontinued by Patient Cosign accepted by RODOLFO FOSTER MD[[id number]] on 04/08/2016 2:53 PM hydrOXYzine HCl (ATARAX) 25 mg tablet 04/08/2016 04/21/2017 Class: Med Update Route: ORAL Sig: Take 1 tablet by mouth every 8 hours as needed. Disc: Discontinued by another Health Care Provider Cosign accepted by RODOLFO FOSTER MD[[id number]] on 04/08/2016 2:53 PM Level of Service: EST PATIENT VISIT LEVEL 3 [60773] Disposition: Return in about 1 month (around 05/22/2017), or if symptoms worsen or fail to improve, for recheck gastritis. Follow-up and Disposition History Recorded Encounter Status:Closed by KATHERINE LOZANO CNP on 04/21/17 DISCHARGE INSTRUCTION Observed: 04/20/2017 Status: F Source: [place] 2:33 AM [facility] Medical Records Department [address] [place] [address] Discharge Instruction 04/20/17231 MR#: [id number] Acct: [id number] Name: LENA LARA Rep #: [id number] : 1980 37 From: Jessica Leyva PCP: Rodolfo Foster MD Status: REG ER ED Disposition - Plan for ED Patient: Chief Complaint: Abd Pain Instructions: ED Abdominal Pain Unkn Cause Prescriptions: Ondansetron [Zofran Odt] 4 mg PO Q8H PRN PRN #10 tablet PRN Reason: Nausea Omeprazole [Prilosec] 20 mg PO BID #28 capsule Referrals: Rodolfo Foster MD [Primary Care Provider] - 3-5 Days What to do if you have Problems For any increased pain, shortness of breath, bleeding, nausea or vomiting, chest pain, or any unexpected problems, contact your Primary Care Provider. Call [facility] ([phone]) or report to the closest Emergency Room. Call 911 if necessary. 04/20/17 0233 <Electronically signed by Jessica Leyva > Date Jessica Leyva Cosigner Signature (If Indicated): Date CC: Rodolfo Foster MD EMERGENCY DEPARTMENT Observed: 04/20/2017 Status: F Source: [place] SUMMARY 2:32 AM [facility] [place] [facility] Medical Records Department [address] [place] [address] Emergency Department Summary 04/20/17 0118 MR#: [id number] Acct: [id number] Name: LENA LARA Rep #: [id number] : 1980 37 From: Jessica Leyva PCP: Rodolfo Foster MD Status: REG ER - ER Visit Summary Date of Service: 04/20/17 Chief Complaint: [Abdominal pain] History of Present Illness: The patient is a 37 F [who presents the emergency department with abdominal pain. It is epigastric and bilateral upper quadrant spreads downwards. It is intermittent. It is worse after eating. She has had diarrhea after eating as well. She states is a stabbing pain. She feels like it is a reverse heartburn. She has had some associated nausea. It has lasted for about 1 hour tonight. No fevers or chills. It has been going on for the last 4 days. She never had similar pain in the past. She has had tubal coils but no other surgeries. She is otherwise healthy and takes no other medications. She does smoke. She denies alcohol use. Additionally complains of some right shoulder and neck pain that started this morning. She took purulent ibuprofen for this but it did not help. Physical Examination: [] Blood pressure 137/106 other vitals within normal limits WN WD NAD PERRL EOMI MMM NECK supple and nontender, no masses RRR no murmur rub or gallop, no peripheral edema, symmetric radial pulses CTAB no respiratory distress ABDOMEN is soft a and tender in the epigastric bilateral upper quadrants, normal bowel sounds, no distension, no rebound or guarding SKIN is warm and dry no rashes Alert and Oriented x3, CN II-XII in tact, no motor or sensory deficits, gait normal No lymphadenopathy Test Results: [] Emergency Department Course and Treatment: [Screening labs are unremarkable. Patient was feeling improved after morphine and Zofran in the emergency department. CT of abdomen was obtained gallbladder specifically is normal. She does have a borderline fatty liver. Results were discussed with the patient. She will be treated for gastritis. She is encouraged to follow-up with her primary physician as we did discuss the differential for upper quadrant abdominal pain which could still include gallbladder dysfunction. She is given precautions for which to return. She will be discharged home with Zofran and omeprazole Treatment Plan: [] Disposition: [Discharge] Impression: [Abdominal pain, bilateral upper quadrant] This note was generated with [employer] dictation software. It may contain incorrect words, spelling, and punctuation that were not noted in review of the chart prior to signing ED Disposition - Plan for ED Patient: Chief Complaint: Abd Pain Referrals: Rodolfo Foster MD [Primary Care Provider] - What to do if you have Problems For any increased pain, shortness of breath, bleeding, nausea or vomiting, chest pain, or any unexpected problems, contact your Primary Care Provider. Call [employer] [facility] ([phone]) or report to the closest Emergency Room. Call 911 if necessary. 04/20/17 0232 <Electronically signed by Jessica Leyva > Date Jessica Leyva Cosigner Signature (If Indicated): Date CC: Rodolfo Foster MD URINALYSIS, COMPLETE Collected: 04/20/2017 Status: F Source: [place] 1:40 AM [facility] [place] [facility] Order Comment: Order Date: 04/20/17 How was Urine Obtained? CLEAN CATCH TYPE CODE TESTS RESULT OUT OF RANGE REFERENCE UNITS LAB L400.3000 Yellow COLOR Normal Yellow LAB L400.3050 Clear Normal CLARITY Cloudy LAB L400.3200 Normal mg/dl Normal GLUCOSE, UR Normal LAB L400.3300 Negative mg/dL Normal BILIRUBIN URINE Negative LAB L400.3400 Negative mg/dl High 5 KETONE UR LAB L400.3465 1.002-1.030 Normal SP.GR. DIPSTX 1.030 LAB L400.3550 5.0 - 8.0 pH UR Normal 5.0 LAB L400.3600 Negative mg/dl High PROT 30 DIPSTX LAB L400.3700 Normal mg/dl High 1 UROBILI LAB L400.3750 Negative Normal NITRITE UR Negative LAB L400.3780 Negative /ul High 50 OCCULT BLOOD-UR LAB L400.3800 Negative /ul High LEUK 25 ESTERASE LAB L400.4050 0-5 /hpf WBC Normal 0-5 SEEN LAB L400.4100 0-5 /hpf Normal RBC-UA 0-5 SEEN LAB L400.4150 5-10 /hpf SQUAM Normal EPI 0-5 SEEN LAB L400.4300 None Seen /hpf 1+ Normal BACTERIA LAB L400.4350 <or=2+ /hpf 2+ Normal MUCUS, URINE Performed By: #### L400.0001 #### [facility] [address] [place], [address] CBC W/DIFF, AUTOMATED Collected: 04/20/2017 Status: F Source: [facility] 1:30 AM [facility] [place] [facility] TYPE CODE TESTS RESULT OUT OF RANGE REFERENCE UNITS LAB L100.1000 4.4-11.0 K/mm3 Normal WBC 9.7 LAB L100.1200 4.2-5.4 M/mm3 Normal RBC 4.75 LAB L100.1300 12.0-15.0 g/dl Normal HGB 14.2 LAB L100.1400 37-47 % Normal HCT 43.0 LAB L100.1500 81-99 fL Normal MCV 90.5 LAB L100.1600 27.0-32.0 pg Normal MCH 29.9 LAB L100.1700 32-36 g/gl Normal MCHC 33.0 LAB L100.1810 11.6-14.6 % Normal RDW CV 13.2 LAB L100.1820 35.1-43.9 fl Normal RDW SD 43.6 LAB L100.1900 150-450 K/mm3 Normal PLT 350 LAB L100.2000 6.2-12.0 fl Normal MPV 9.8 LAB L100.2100 47-70 % Normal NEUT% 50.8 LAB L100.2200 19-41 % Normal LY% 40.2 LAB L100.2300 0-10 % Normal MONO% 5.6 LAB L100.2400 0-5 % Normal EO% 3.1 LAB L100.2500 0-1 % Normal BASO% 0.2 LAB L100.2550 0.0-0.9 % Normal IM GRAN % 0.100 Result Comment: IG% - Immature Granulocytes (promyelocytes, myelocytes and metamyelocytes) > 1% indicates that a LEFT SHIFT is Present. LAB L100.2620 2.0-7.7 X10 3/uL Normal Absolute Neut 4.9 LAB L100.2720 0.83-4.51 X10 3/ul Normal Absolute Lymph 3.89 LAB L100.4500 Normal SMEAR COMMENT SCANNED Result Comment: LYMPHOCYTOSIS NOTED Performed By: #### L100.0100 #### [facility] [address] [place], [place], [address] COMPREHENSIVE METABOLIC Collected: 04/20/2017 Status: F Source: [facility] 1:30 AM [facility] [place] [facility] TYPE CODE TESTS RESULT OUT OF RANGE REFERENCE UNITS LAB L501.0100 74-106 mg/dL Normal GLU 106 Result Comment: Fasting Glucose result from 100 to 125 mg/dL suggests IMPAIRED HOMEOSTASIS per A.D.A. criteria. Please note revised GLUCOSE reference range effective 2017. LAB L501.1000 7-18 mg/dL Normal BUN 16 LAB L501.1100 0.55-1.02 mg/dL Normal CREAT,SERUM 0.66 Result Comment: The validity of the calculated GFR AND GFRAA in patients over 70 years has not been determined. Clinical correlation is essential. LAB L501.1110 >60 mL/min Normal EST GFR 109 Result Comment: Non- GFR Calc LAB L501.1115 >60 mL/min Normal EST GFR - AA 132 Result Comment: GFR Calc LAB L501.1255 ml/min Normal Estimated CRCL 102.74 LAB L501.1300 10-20 RATIO High BUN/CRE 24.4 LAB L501.1500 6.4-8. g/dL 2 T PROT Normal 6.8 LAB L501.1800 3.2-5. g/dL 0 ALB Normal 3.3 LAB L501.1950 2.2-4. g/dL 2 GLOB Normal 3.5 LAB L501.2000 0.9-2. RATIO 4 A/G Normal 0.9 LAB L501.2200 8.5-10 mg/dL .1 CA Normal 8.6 LAB L501.4100 15-37 U/L AST Normal 15 LAB L501.4305 45-117 U/L ALK P Normal 90 LAB L501.4405 13-56 U/L ALT Normal 34 Result Comment: Please note revised ALT reference range effective 2017. LAB L501.4600 0.20-1.00 mg/dL Normal T BILI 0.20 LAB L501.5300 136-145 mmol/L Normal NA 140 LAB L501.5600 3.5-5.1 mmol/L Normal K 3.7 LAB L501.5900 98-107 mmol/L High CL 109 LAB L501.6100 21.0-32.0 mmol/L Normal CO2 25.0 LAB L501.6200 5-15 Normal GAP 6 Performed By: #### L500.4050, L501.2450 #### [facility] [address] [place], [address] LIPASE Collected: 04/20/2017 Status: F Source: [place] 1:30 AM [facility] [place] [facility] TYPE CODE TESTS RESULT OUT OF RANGE REFERENCE UNITS LAB L501.2450 73-393 U/L Normal LIPASE 139 Performed By: #### L500.4050, L501.2450 #### [facility] [address] [place], [address] ABDOMEN/PELVIS WITHOUT Observed: 04/20/2017 Status: F Source: [place] [facility] 1:17 AM [facility] [place] [facility] Imaging Services [address] [place] [address] Abdomen/Pelvis without Cont MR#: [id number] Acct: [id number] Name: LENA LARA Rep #: [id number] : 1980 F 37 From: Nishi Martinez MD PCP: Cindi BURT,Rodolfo Status: REG ER Study: Abdomen/Pelvis without Cont Date of Exam: 04/20/17 Exam# [id number] Ordering Dr: Jessica Leyva STUDY: CT ABDOMEN AND PELVIS WITHOUT CONTRAST REASON FOR EXAM: Female, 37 years old. Four days chest pain in upper mid abdomen after eating. Headache, neck pain, radiating to posterior. Essure placement. RADIATION DOSAGE (If Supplied By Facility): CTDIvol = ( 10.67 ) mGy, DLP = ( 525.16 ) mGycm TECHNIQUE: Transaxial 2.5 mm images were obtained from the dome of the diaphragm to the symphysis pubis without oral contrast, and without intravenous contrast. Sagittal and coronal images were reconstructed. This examination is limited for the evaluation of gastrointestinal, solid organs and vascular structures due to the lack of intravenous and oral contrast. Individualized dose optimization techniques were used for this CT. COMPARISON: None. FINDINGS: The visualized lung bases are unremarkable. The visualized portions of the heart are within normal limits. Borderline size and low attenuation. Normal gallbladder and extrahepatic biliary system. Normal spleen. Normal pancreas. Normal bilateral adrenal glands. Normal right kidney. Normal left kidney. Normal visualized stomach. Normal small intestine. Normal colon. The appendix is visualized and appears normal. Normal abdominal aorta. Normal inferior vena cava. Normal retroperitoneum. Normal urinary bladder. Retroverted uterus contains an Essure type device. Normal-appearing adnexa. Normal abdominal wall. Normal osseous structures. CT/Abdomen/Pelvis without Cont IMPRESSION: Borderline hepatomegaly and hepatic steatosis. There is no acute abdomen and pelvic pathology. Electronically Signed: Nishi Martinez MD at 2:11 EST , Service support , CC: Jessica Leyva; Rodolfo Foster MD Sub Master: Signed ALLERGIES ALLERGIES DATE TYPE / CODE NAME / CODE REACTION SEVERITY SOURCE 03/10/2018 Drug tioconazole/[id number] Other Unknown [facility] Allergy/416 2926(RXNORM) [facility] 050111([facility] ED CT) Repository 06/04/2017 Drug No Known Unknown [place] Allergy/416 Allergies/[id number] [facility] 627246([place] [address](RXNORM) [facility] ED CT) Repository 01/30/2005 DRUG TIOCONAZOLE SWELLING [facility]/[address] [place] [address] 759517(SNOM Repository ED CT) ENCOUNTERS ENCOUNTERS ADMIT/DISCHARGE ACCOUNT ADMITTING ENCOUNTER LOCATION SOURCE NUMBER CLASS 03/10/2018/03/10/19 [id number] Emergency [address] ing:ED Repository 03/06/2018/03/07/19 [id number] Emergency [address] ing:ED Repository 02/28/2018/03/01/19 [id number] Ambulatory [address] [place] Repository 01/24/2018/01/26/20 [id number] Ambulatory [address] [place] Repository 01/14/2018/01/15/20 [id number] [place], Ambulatory [address] Other [place] Repository 01/03/2018/01/04/20 [id number] Ambulatory [address] [place] Repository 12/20/2017/01/15/20 [id number] Ambulatory [address] [place] Repository 11/25/2017/11/26/19 [id number] Emergency [address] ing:ED Repository 11/24/2017 [id number] Ambulatory [facility] ing:PSN Repository 11/18/2017/11/19/19 [id number] Ambulatory [address] [place] Repository 09/14/2017/09/15/19 [id number] Ambulatory [address] [place] Repository 08/11/2017/08/13/19 [id number] Ambulatory [address] [place] Repository 06/04/2017/06/05/19 [id number] Emergency [address] ing:ED Repository 06/02/[id number] [facility] [place] Repository 05/31/2017/06/02/19 [id number] Ambulatory [address] [place] Repository 05/24/2017/05/27/19 [id number] Ambulatory [address] [place] Repository 05/14/2017/05/15/19 [id number] Ambulatory [address] [place] Repository 04/28/2017/04/29/19 [id number] Ambulatory [address] [place] Repository 04/21/2017/04/23/19 [id number] Ambulatory [address] [place] Repository 04/20/2017/04/21/19 [id number] Emergency [facility] ing:ED Repository PAYERS PAYERS ENCOUNTER GUARANTOR PAYER SUBSCRIBER SOURCE 03/10/2018 LENA Underwood Primary LENA Lopez [id number] Insurance:CARESOURCEP RATLIFFDOB: [facility] [place]: [id number] [id number] Repository [address]Pgg: ([phone]) Date:2018-03-10P O [phone] (HP) [address]ATTN: [place] [address]EV: 03/10/2018 Secondary NOT GIVENUNK [place] Insurance:SELF PAY [facility] Number: Effective Repository Date:2018-03-10 03/06/2018 LENA Underwood Primary LENA Underwood John [id number] Insurance:CARESOURCEP RATLIFFDOB: [facility] Number: [id number], [place] [id number] Repository [address]Ecl: ([phone]) Date:2018-03-06P O [phone] () [address]ATTN: [place] [address]PI: 03/06/2018 Secondary NOT GIVENUNK [place] Insurance:SELF PAY [facility] Number: Effective Repository Date:2018-03-06 11/25/2017 LENA Underwood Primary LENA Underwood John [id number] Insurance:CARESOURCEP RATLIFFDOB: [facility] Number: [id number], [place] [id number] Repository [address]Eew: ([phone]) Date:2017-11-25P O [phone] () [address]ATTN: [place] [address]NS: 11/25/2017 Secondary NOT GIVENUNK [place] Insurance:SELF PAY [facility] Number: Effective Repository Date:2017-11-25 11/24/2017 LENA Underwood Primary LENA Underwood [place] [id number] Insurance:CARESOURCEP RATLIFFDOB: [facility] Number: [id number], [place] [id number] Repository [address]Arh: ([phone]) Date:2017-08-11P O [phone] (HP) [address]ATTN: [place] [address]QU: 11/24/2017 Secondary NOT GIVENUNK [place] Insurance:SELF PAY [facility] Number: Effective Repository Date:2017-08-11 06/04/2017 Lena Underwood Primary Lena Underwood John [id number] Insurance:CARESOURCEP RatliffDOB: [facility] Number: [id number], [place] [id number] Repository [address]Nqt: ([phone]) Date:2017-06-04P O [phone] (HP) [address]ATTN: [place] [address]HW: 06/04/2017 Secondary NOT GIVENUNK [place] Insurance:SELF PAY [facility] Number: Effective Repository Date:2017-06-04 04/20/2017 Lena Underwood Primary Lena Underwood [place] [id number] Insurance:CARESOURCEP RatliffDOB: [facility] Number: [id number], [place] [id number] Repository [address]Fhr: (330) Date:2017-04-20P O [phone] (HP) [address]ATTN: [place] [address]HE: 04/20/2017 Secondary NOT GIVENUNK [place] Insurance:SELF PAY [facility] Number: Effective Repository Date:2017-04-20
== END 2018-03-07 00:40 | disposition home or self-care (01) ==
LOC: ED 03-07 00:35
PROVIDERS: Emergency Provider Emergency Medicine; Family Provider Family Medicine; PCP Family Medicine
DX: L02.214 Cutaneous abscess of groin (principal); Z72.0 Tobacco use
CPT/HCPCS: 99283

== ENCOUNTER 2018-03-10 21:02 | Emergency (ER) | payer MEDICAID, SELFPAY ==
[2018-03-10 21:03] VITALS: BP 134/77; PULSE 95; RESP 14; TEMP 36.9; O2SAT 99; BMI 27.5
--- NOTE | 2018-03-10 21:15 | EKG12_ITS ---
Test Reason : CHEST PAIN Blood Pressure : / mmHG Vent. Rate : 093 BPM Atrial Rate : 093 BPM P-R Int : 146 ms QRS Dur : 088 ms QT Int : 340 ms P-R-T Axes : 043 053 015 degrees QTc Int : 422 ms Normal sinus rhythm Nonspecific T wave abnormality Abnormal ECG Confirmed by LISANDRA BURT, ARON ([id number]), business editor TRICIA SEVILLA ([id number]) on 03/15/2018 3:04:18 PM Referred By: JEANNA Confirmed By:ARON FRY MD
[2018-03-10] MEDS: Mag Hydrox/Al Hydrox/Simeth 30 ML UDC PO (21:26)
--- NOTE | 2018-03-10 22:01 | ED.VISSUMM ---
- ER Visit Summary Date of Service: 03/10/18 Chief Complaint: Chest burning History of Present Illness: The patient is a 38 F who is burning in her chest. It started an hour ago. She describes burning in the retrosternal area. Nothing makes it better or worse. She does have a history of GERD. She tried milk without any relief. She was concerned because her mom had a heart attack and had a similar presentation. Physical Examination: Vital signs reviewed. HEENT exam unremarkable. Heart is regular rate and rhythm without murmurs. Lungs are clear to auscultation. She does have chest tenderness to palpation in the midsternal area. Abdomen is soft and nontender. Extremities reveal no edema. Skin exam normal. Neurologic exam normal. Test Results: EKG was normal sinus rhythm with a T wave inversion in lead III only. No other ST changes Emergency Department Course and Treatment: Patient was given a GI cocktail and feels much better. I feel this is likely GERD. I will send the patient home with [facility]. She will follow-up with her PCP. Treatment Plan: [] Disposition: Discharge Impression: GERD This note was generated with [employer] dictation software. It may contain incorrect words, spelling, and punctuation that were not noted in review of the chart prior to signing ED Disposition - Plan for ED Patient: Chief Complaint: Chest Pain Referrals: Wilver Milton MD [Primary Care Provider] -
[2018-03-10 22:03] VITALS: BP 138/76; PULSE 88; RESP 16; O2SAT 98
--- NOTE | 2018-03-10 22:03 | ED.DEP ---
ED Disposition - Plan for ED Patient: Disposition: Home or Assisted Living Chief Complaint: Chest Pain Instructions: ED GERD Prescriptions: Omeprazole [Prilosec] 20 mg PO DAILY #30 cap Referrals: Wilver Milton MD [Primary Care Provider] -
== END 2018-03-10 22:07 | disposition home or self-care (01) ==
PROVIDERS: Emergency Provider Emergency Medicine; Family Provider Family Medicine; PCP Family Medicine
DX: K21.9 Gastro-esophageal reflux disease without esophagitis (principal); Z72.0 Tobacco use
CPT/HCPCS: 93005; 99283

== ENCOUNTER 2018-03-25 18:20 | Emergency (ER) | payer MEDICAID, SELFPAY ==
[2018-03-25 18:21] VITALS: BP 147/82; PULSE 107; RESP 18; TEMP 37.1; O2SAT 99; BMI 27.4
--- NOTE | 2018-03-25 18:44 | CT_ITS ---
STUDY: CT ABDOMEN AND PELVIS WITH CONTRAST REASON FOR EXAM: Female, 38 years old. Right lower quadrant pain with nausea and diarrhea RADIATION DOSAGE (If Supplied By Facility): CTDIvol = ( 15.60 ) mGy, DLP = ( 755.83 ) mGycm TECHNIQUE: Transaxial images were obtained from the dome of the diaphragm to the symphysis pubis with oral contrast. 100ML ml of Isovue 300 contrast was administered. Sagittal and coronal images were reconstructed. Individualized dose optimization techniques were used for this CT. COMPARISON: 04/20/2017 FINDINGS: The visualized lung bases are unremarkable. The visualized portions of the heart are within normal limits. Normal liver. Normal gallbladder and extrahepatic biliary system. Normal spleen. Normal pancreas. Normal bilateral adrenal glands. Normal right kidney. Normal left kidney. Normal visualized stomach. Normal small intestine. Normal colon. The appendix is visualized and appears normal. Normal abdominal aorta. Normal inferior vena cava. Normal retroperitoneum. Normal urinary bladder. Normal visualized uterus. Normal abdominal wall. Normal osseous structures. CT/Abdomen/Pelvis WITH Contrast IMPRESSION: Normal enhanced CT of the abdomen and pelvis. Electronically Signed: Rosas Us MD at 20:51 EST , Service support ,
--- NOTE | 2018-03-25 18:45 | ED.VISSUMM ---
- ER Visit Summary Date of Service: 03/25/18 Chief Complaint: Abdominal pain History of Present Illness: The patient is a 38 F presenting with abdominal pain. She states that this started last night. She has right lower quadrant abdominal pain. She has nausea with no vomiting. She denies fever. She has had a decreased appetite today. She also complains of diarrhea. No blood in her stool. No urinary complaints. Physical Examination: Vitals are stable. Patient is afebrile. Alert no acute distress. HEENT exam is unremarkable. Neck is supple. Lungs are clear and equal bilaterally. Heart is regular rate and rhythm. Abdomen is soft right lower quadrant tenderness, no rebound or guarding Extremities are unremarkable. Skin is warm and dry. No focal neurologic deficit. Remainder of exam is unremarkable. Emergency Department Course and Treatment: Patient was given IV fluids, Zofran. CBC shows white count 11.8. Chemistries unremarkable. Liver lipase are normal. Urinalysis unremarkable. HCG negative. CT abdomen pelvis shows no acute process. On reevaluation, patient is resting comfortably. She is given prescription for Zofran. She is advised to follow-up with her primary care physician. Advised return to ED if worsening complaints. Disposition: Discharge home Impression: Abdominal pain This note was generated with [employer] dictation software. It may contain incorrect words, spelling, and punctuation that were not noted in review of the chart prior to signing ED Disposition - Plan for ED Patient: Instructions: ED Abdominal Pain Unkn Cause Prescriptions: Ondansetron [Zofran Odt] 4 mg PO Q8H PRN PRN #10 tablet PRN Reason: Nausea Referrals: Wilver Milton MD [Primary Care Provider] -
[2018-03-25] MEDS: Ondansetron 4 MG/2 ML Vial IV (19:01)
[2018-03-25] MEDS: 0.9% Normal Saline 1,000 ML 1000 ML IV (19:01)
[2018-03-25 19:42] LABS: Absolute Lymphocyte Count 3.74 X10^3/ul (0.83-4.51); Absolute Neutrophil Count 7.2 X10^3/uL (2.0-7.7); Basophil# 0.03 X10^3/uL; Basophil% 0.3 % (0-1); Eosinophil# 0.21 X10^3/uL; Eosinophils% 1.8 % (0-5); Hematocrit 42.8 % (37-47); Hemoglobin 14.5 g/dl (12.0-15.0); Lymphocyte # 3.74 X10^3/ul (4.0); Lymphocyte % 31.6 % (19-41); Mean Corp Hgb Conc 33.9 g/gl (32-36); Mean Corpuscular Hgb 30.7 pg (27.0-32.0); Mean Corpuscular Volume 90.7 fL (81-99); Mean Platelet Vol. 10.2 fl (6.2-12.0); Monocyte# 0.68 X10^3/uL; Monocyte% 5.7 % (0-10); Neutrophil # 7.15 X10^3/uL (2.7-7.7); Neutrophil % 60.4 % (47-70); POSITIVE COUNT NO; POSITIVE DIFFERENTIAL NO; POSITIVE MORPHOLOGY NO; Platelet Count 399 K/mm3 (150-450); RBC Distribution Width CV 13.2 % (11.6-14.6); RBC Distribution Width SD 43.7 fl (35.1-43.9); Red Blood Count 4.72 M/mm3 (4.2-5.4); White Blood Count 11.8 K/mm3 (4.4-11.0)
[2018-03-25 19:42] LABS: Color, Urine Yellow (Yellow); Glucose, Dipstick Normal (Normal); Ketone-Dipstick Negative (Negative); Leukocyte Esterase-Dipstick Negative /ul (Negative); Nitrite-Dipstick Negative (Negative); Occult Blood-Urine 150 /ul (Negative); Protein-Dipstick 15 mg/dl (Negative); Urine Bilirubin Dipstick Negative (Negative); Urine Clarity Clear (Clear); Urine Urobilinogen Normal (Normal)
[2018-03-25 19:53] LABS: Bacteria RARE /hpf (None Seen); Calcium Oxalate Crystals Ur RARE /hpf (<or=2+); Mucous, Urine 1+ /hpf (<or=2+); Red Blood Cells-Urine 0-5 SEEN /hpf (0-5); Squamous Epithelial Cells - UA 0-5 SEEN /hpf (5-10); White Blood Cells 0-5 SEEN /hpf (0-5)
[2018-03-25 19:55] LABS: ALB/GLOB Ratio 0.9 RATIO (0.9-2.4); AST(SGOT) 10 U/L (15-37); Alanine Aminotransfer ALT/SGPT 18 U/L (13-56); Albumin, Serum 3.6 g/dL (3.2-5.0); Alkaline Phosphatase 95 U/L (45-117); Anion Gap 9 (5-15); BUN 16 mg/dL (7-18); BUN/Creat Ratio 19.4 RATIO (10-20); Calcium,Total 8.8 mg/dL (8.5-10.1); Chloride 109 mmol/L (98-107); Creatinine, Serum 0.82 mg/dL (0.55-1.02); EST Glomerular Filtration Rate 83 mL/min (>60); Est Glom Filt Rate - Afr Amer 101 mL/min (>60); Globulin 3.8 g/dL (2.2-4.2); Glucose 98 mg/dL (74-106); Lipase 115 U/L (73-393); Potassium 3.4 mmol/L (3.5-5.1); Protein, Total 7.4 g/dL (6.4-8.2); Sodium Level 140 mmol/L (136-145)
[2018-03-25 20:02] LABS: Pregnancy, Serum, hCG Quali. NEGATIVE Negative (0-9 Nonpreg)
[2018-03-25 20:03] VITALS: BP 108/90; PULSE 78; RESP 18; O2SAT 98
--- NOTE | 2018-03-25 22:38 | ED.DEP ---
ED Disposition - Plan for ED Patient: Instructions: ED Abdominal Pain Unkn Cause Prescriptions: Ondansetron [Zofran Odt] 4 mg PO Q8H PRN PRN #10 tablet PRN Reason: Nausea Referrals: Wilver Milton MD [Primary Care Provider] -
[2018-03-25 22:46] VITALS: PULSE 67; RESP 18; O2SAT 95
== END 2018-03-25 22:46 | disposition home or self-care (01) ==
LOC: ED 19:17
PROVIDERS: Emergency Provider Emergency Medicine; Family Provider Family Medicine; PCP Family Medicine
DX: R10.31 Right lower quadrant pain (principal); R11.0 Nausea; Z72.0 Tobacco use
CPT/HCPCS: 74177; 80053; 81001; 83690; 84703; 85025; 96361; 96374; 99283; J7030; Q9967; A4216; J2405

== ENCOUNTER 2018-10-02 08:03 | Emergency (ER) | payer MEDICAID, SELFPAY ==
[2018-10-02 08:04] VITALS: BP 141/90; PULSE 99; RESP 17; TEMP 36.7; O2SAT 99; BMI 28.3
--- NOTE | 2018-10-02 08:20 | ED.DCSUM_ITS ---
- ER Visit Summary Date of Service: 10/02/18 Chief Complaint: Right hand pain History of Present Illness: The patient is a 38 F who presents with right hand pain. Patient states she woke this morning with severe pain. January of last year she was diagnosed with bilateral carpal tunnel syndrome. She was seeing Dr. Estrada and had surgery on the left wrist for carpal tunnel. She elected not to do both wrist at the same time because of her job and her need to have one hand for daily activities. Since that time she is continued to have pain in the right wrist. She notes the radiation to the thumb and index finger. 2 weeks ago she started a new job at our [employer]. Her pain is increased. And now she is experiencing tingling in the third fourth and fifth digit. She states today the pain was more severe and radiated up towards her elbow. She has wrist splints but states that any type of pressure on the wrist makes it worse and she takes them off and cannot tolerate them. She is a smoker. She tells me that the right hand feels cooler to her. Physical Examination: Afebrile vital signs stable Gen: Well-nourished well-developed Head: Normocephalic atraumatic Eyes: Perrl EOMI ENT: TMs clear no rhinorrhea moist mucous membranes Neck: Supple no lymphadenopathy no JVD nontender CVS: Regular rate rhythm no murmurs normal S1-S2 Respiratory: No distress clear to auscultation bilaterally chest nontender Abdomen: Soft nontender nondistended normal bowel sounds no masses Back: Nontender Extremity: Right hand shows less than 3-second capillary refill of all 5 digits. Negative Koko's test. Positive Tinel's and Phalen's test. I do not appreciate thenar wasting. There is no significant swelling. Two-point discrimination intact. Skin: Normal color no rash Neuro: alert orientated ?3 CN II-XII intact normal strength sensation Psych: Normal affect normal mood Emergency Department Course and Treatment: I think by the patient starting new job she has continued to worsen her carpal tunnel syndromes. She may also be developing an ulnar neuropathy given the symptoms in the long ring and little fingers. Will place her on scheduled anti-inflammatories and a brief course of steroids. I will write for a few [place]. I advised that she needs to see her surgeon as soon as possible. Impression: 1. Right carpal tunnel syndrome 2. Right ulnar neuropathy This note was generated with [employer] dictation software. It may contain incorrect words, spelling, and punctuation that were not noted in review of the chart prior to signing ED Disposition - Plan for ED Patient: Disposition: Home or Assisted Living Instructions: Carpal Tunnel, Ulnar Nerve Palsy Prescriptions: Prednisone [Deltasone] 40 mg PO DAILY #10 tab Prescription Printed Naproxen [Naprosyn] 500 mg PO BID #20 tab Prescription Printed Hydrocodone Bitart/Apap 5-325 [[place] 5MG-325MG] 1 tab PO Q6H PRN PRN 3 Days #12 tab PRN Reason: Pain Prescription Printed Referrals: Logan Estrada MD [STAFF PHYSICIAN] - As soon as possible
[2018-10-02 08:35] VITALS: BP 141/90; PULSE 99; RESP 18
== END 2018-10-02 08:37 | disposition home or self-care (01) ==
LOC: ED 08:31
PROVIDERS: Emergency Provider Emergency Medicine; Family Provider Family Medicine; PCP Family Medicine
DX: G56.03 Carpal tunnel syndrome, bilateral upper limbs (principal); G56.21 Lesion of ulnar nerve, right upper limb; F17.200 Nicotine dependence, unspecified, uncomplicated
CPT/HCPCS: 99282

== ENCOUNTER 2018-12-19 12:00 | Outpatient (RCR) | payer MEDICAID, SELFPAY ==
--- NOTE | 2018-11-22 07:47 | HP.OTEVAL ---
Patient's Visit Information HENRRY LARA is a 38 year old F, referred to Occupational Therapy by Logan Estraad MD, with a diagnosis of right CTS and cubital tunnel. Date of Evaluation: 11/21/18 Occupational Therapist: Shanika Azar, MEGA/Margot, CHT - Subjective Subjective: This 38 year old female was seen for OT eval following right CTR and cubital releases. Pt states she had CTS since she was about 20 years old. Pt states she struggled with tingling/numbness on and off until this past year. Pt states she had sx on left CTR in 2017. 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 and was unable to perfrom her job due to CTS in right hand. pt had sx stitches removed 10 days later. pt states cubital tunnel release is feeling good. pt states she is wearing a brace on her right wrist and states it does help make her arm feel better. - ADLs Dressing: Socks, Shoes Fasteners: Tie shoes, Buttons, Zippers Eating: Use silverware, Cut food, Drink from glass Bathing: Handle washcloth & soap Toileting: Manage clothing Kitchen: Chop with knife, Peel fruits & vegetables, Open jars, Open bottle caps, Lift gallon of milk, Pour from pitcher, Lift saucepan, Take dish out of oven, Load/unload manager labor relations, Place dish in microwave Household: Vacuum, Sweep/mop, Laundry Miscellaneous: Write, Operate spray bottle, Play musical instrument - Pain right hand 0 Pain Intensity Range: 4 - ROM Elbow: right WNL left WNL Forearm: right WNL left WNL Wrist: right 65/60 left 70/75 ROM Comments: pt demo good ROM - Strength Elbow: right 4/5 left 5/5 Forearm: right 4+/5 left 5/5 Contract Administration Coordinator: right 25# left 70# Lateral Pinch: right 10# left 14# Tripod Pinch: right 8# left 12# Strength Comments: pt demo with weakness of right UE and fine arts teacher strength - Sensation Sensation Comments: denies - Quick DASH-Disab of Arm,Shoulder& Hand Quick DASH Score: 60.0000 - Goals Goal:: pt will demo a increase in right fine arts teacher strength by 20# to increase pts ind. with IADLs and ADLs by d/c. pt will demo a increase in right UB strength by 1mm grade to increase pts functional strength to return to work and ind. with IADLs and ADLS by d/c Goal:: pt will report no pain greater than 1/10 with use of right UE with home mtg and meal prep tasks by d/c Goal:: pt will demo understanding of scar mtg by ed of 2nd session to decrease potential scar adhesions - Rehabilitation General Assessment: PT demo with weakness, scar tenderness that is limiting pt with ADLs and IADLs. Pt would benefit from skilled OT sevices 2-3 x week for 4 weeks to increase her functional strength and decrease scar sensitivity to return pt to work and ind. with ADls and IADLs. Today pt was ed. on ROM and scar mtg along with inititation of t-band to increase UB strength. pt given handouts and demo understanding of ex and agree to POC. Rehabilitation Potential: Good - Anticipated Interventions Anticipated Interventions: Strengthening, Scar Care, Desensitization, Modalities, Joint Protection/Energy Conservation, Ergonomic Education - Visit Plan Frequency: 2-3x /Week Duration: 4 Weeks General Plan: ask if she has questions with HEP, start BTE and UB gym eq. to pt betty. she is to strengthen to return to work. scar mtg TEXT: Thank you for the opportunity to evaluate your patient. For Medicare and Medicare HMO plans, please review the plan of care and approve it. It will need to be FAXED BACK to us at [phone] for Medicare purposes. Please let me know if there are questions or concerns regarding this plan of care. Physician Signature: Date:
--- NOTE | 2018-12-19 12:21 | HP.OTDCSUM_ITS ---
HP - OT D/C Summary It has been my pleasure to treat HENRRY LARA under orders from Logan Estrada MD, for the diagnosis of right CTS and cubital tunnel for a total of 12 visit(s). Please see the following information for a summary of their discharge status. - Overall Improvement % Improvement: 70 - Objective Objective/Function: pt was seen for 12 OT session following a right CTR aned Ulnar N release. pt made great progress- right oracle ebs architect strength is 50#. right la teral pinch 6#. right tripod pinch 8#. pt denies tingling/numbness- pt reports IND. with ADLs and IADls. pt does report CTR scar sensitivity at times - Goals Patient Goals: Regain Strength, Return to Work, Improve Fine Motor Skills Goal:: pt will demo a increase in right oracle ebs architect strength by 20# to increase pts ind. with IADLs and ADLs by d/c. pt will demo a increase in right UB strength by 1mm grade to increase pts functional strength to return to work and ind. with IADLs and ADLS by d/c Goal:: pt will report no pain greater than 1/10 with use of right UE with home mtg and meal prep tasks by d/c Goal:: pt will demo understanding of scar mtg by ed of 2nd session to decrease potential scar adhesions - Plan Plan: D/C - D/C Information Discharge Comments: pt was seen for 12 OT session following a right CTR aned Ulnar N release. pt made great progress- right oracle ebs architect strength is 50#. right lateral pinch 6#. right tripod pinch 8#. pt denies tingling/numbness- pt reports IND. with ADLs and IADls. pt does report CTR scar sensitivity at times. If there are questions or concerns regarding this patient's occupational therapy, please fell free to call me at [phone]. Thank you for the re ferral of this patient. Sincerely, Shanika Azar, OTR/L, CHT
== END 2018-12-19 12:28 | disposition home or self-care (01) ==
LOC: OT 12:00
PROVIDERS: Family Provider Family Medicine; PCP Family Medicine; Referring Provider Orthopaedic Surgery; Visit Provider Orthopaedic Surgery
DX: G56.01 Carpal tunnel syndrome, right upper limb (principal); G56.21 Lesion of ulnar nerve, right upper limb
CPT/HCPCS: 97035; 97110; 97140; 97166; 97168

== ENCOUNTER 2019-01-26 09:36 | Emergency (ER) | payer MEDICAID, SELFPAY ==
[2019-01-26 09:37] VITALS: BP 128/79; PULSE 90; RESP 18; TEMP 36.4; O2SAT 100; BMI 28.3
[2019-01-26 09:43] VITALS: TEMP 36.6
--- NOTE | 2019-01-26 10:00 | ED.VIS.UPPEX ---
History of Present Illness Chief Complaint: Wound Informant: Patient Occurred: Today Mechanism/Context: Puncture Wound Onset: Today Context: Sudden Onset Narrative: Patient is a 38-year-old female presenting with a puncture wound to her left middle finger. Patient states he picked up a prescription package and 1 of the edilberto lodged into her finger. She did not try to take it out. She came to the emergency room for further evaluation. She has pain at the site. She denies any numbness or tingling. She is not sure last tetanus was. She denies any other injuries or complaints at this time. Tetanus Immunization: Unknown Past Medical History - Allergies and Home Meds Allergies/Adverse Reactions: Allergies tioconazole [From Vagistat-1] Allergy (Verified 01/26/19 09:39) Other Primary Care Physician: Wilver Milton MD [Primary Care Provider] - Smoking Status: Current every day smoker Review of Systems General: Denies: Chills, Fever, Sweats Eyes: Denies: Visual changes - bilaterally, Diplopia ENT: Denies: Rhinorrhea, Sore throat Cardiovascular: Denies: Chest pain, Palpitations Respiratory: Denies: Dyspnea, Cough, Dyspnea on exertion Gastrointestinal: Denies: Abdominal pain, Nausea, Vomiting, Diarrhea, Melena, Hematochezia Genitourinary: Denies: Dysuria, Hematuria, Frequency Musculoskeletal: Reports: Extremity Pain - Left middle finger. Denies: Back pain Skin: Reports: Wounds - Staple lodged in left middle finger. Denies: Rash Neurological: Denies: Headache, Weakness, Numbness Physical Exam Vital Signs/Narrative: Vital Signs Temp Pulse Resp BP Pulse Ox 01/26/19 09:43 97.8 F 01/26/19 09:37 97.6 F L 90 18 128/79 H 100 Inital Vital Signs reviewed: Yes Left Hand: - - Prong of staple lodged in the soft tissue of the palmar aspect of the left finger over middle phalanges. No surrounding erythema. No deformity. Normal range of motion. General: Well nourished, Well developed Head: Normocephalic, Atraumatic Eyes: Perrl, EOMI ENT: No Trauma, Moist Mucous Membranes Neck: Nontender, Full ROM Cardiovascular: Regular rate, Regular rhythm, No murmurs Respiratory: No distress, CTA bilaterally, Chest nontender Abdomen: Soft, Nontender, Nondistended, Normal bowel sounds Back: Nontender Skin: Normal color, No rash, - - Pinpoint wound over left middle phalanges of the middle finger Neurological: Alert, Oriented x3, Cranial nerves II-XII grossly intact, Normal Strength, Normal Sensation Psychological: Normal affect Diagnostic/Tx/Re-eval - Medical Decision Making Patient had a staple lodged in her left middle finger. It was removed at the bedside quite easily. Patient has a very small amount of bleeding afterwards which resolves with direct compression. Normal range of motion. Neurovascular intact. Tetanus will be updated today. Patient is given Motrin for her discomfort. She is counseled generalized wound care. Patient is counseled on signs and symptoms requiring return to the emergency room. Patient verbalizes agreement and understand this plan. Patient discharged home in stable and improved condition. ED Disposition - Plan for ED Patient: Disposition: Home or Assisted Living Diagnosis: Puncture wound of left middle finger with foreign body without damage to nail Instructions: PUNCTURE WOUND, General Referrals: Wilver Milton MD [Primary Care Provider] - Additional Instructions: Your tetanus has been updated today. You do not require antibiotics. Return to the emergency room if you have worsening pain, fevers or redness at the site. Follow-up with your primary care doctor as needed.
[2019-01-26] MEDS: Ibuprofen 600 MG Tablet PO (10:22)
[2019-01-26] MEDS: Diphth,Pertuss(Acell),Tet Vac 0.5 ML Vial IM (10:22)
== END 2019-01-26 10:26 | disposition home or self-care (01) ==
LOC: ED 10:10
PROVIDERS: Emergency Provider Emergency Medicine; Family Provider Family Medicine; PCP Family Medicine
DX: S61.243A Puncture wound with foreign body of left middle finger without damage to nail, initial encounter (principal); W45.8XXA Other foreign body or object entering through skin, initial encounter; Y93.9 Activity, unspecified; Y92.9 Unspecified place or not applicable; Y99.9 Unspecified external cause status; Z23 Encounter for immunization; F17.200 Nicotine dependence, unspecified, uncomplicated
CPT/HCPCS: 90471; 90715; 99283

== ENCOUNTER 2020-03-12 19:40 | Emergency (ER) | payer OTHER, MEDICAID, SELFPAY ==
[2020-03-12 19:40] VITALS: BP 122/85; PULSE 98; RESP 17; TEMP 36.2; O2SAT 98; BMI 29.0
--- NOTE | 2020-03-12 19:56 | ED.DCSUM_ITS ---
- ER Visit Summary Date of Service: 03/12/20 Chief Complaint: [Head injury] History of Present Illness: The patient is a 40 F [ presents to the emergency and with complaint of a head injury that occurred today approximately 4:30 PM] patient states that she was at work and standing next to a sink when she dropped something and when she went the bend over to pick it up she caught the corner of the sink with her head. No loss of consciousness. Patient states that initially she felt somewhat disoriented for about 15 minutes and then afterwards would have intermittent episodes of feeling woozy and nauseated. Patient's had no vomiting. She denies any visual changes. She denies headache currently. Patient not on blood thinners. Patient denies any neck pain. Physical Examination: [HEENT-PERRLA, EOMI. Cranial nerves II through XII grossly intact. TMs clear. Mucous membranes moist. No adenopathy. Patient does have area of faint erythema and mild soft tissue swelling over the frontal scalp with superficial abrasion. No bony depressions noted. No hemotympanum. No C-spine tenderness on palpation. Cardiovascular-regular rate and rhythm without murmur or ectopy Lungs-clear to auscultation, chest wall stable without crepitus or subcu emphysema Abdomen-normoactive bowel sounds, soft, nontender, no rebound or rigidity, no peritoneal signs. Extremities-intact ?4, normal range of motion, normal pulses, atraumatic] Test Results: [None indicated] Emergency Department Course and Treatment: [] Treatment Plan: [Advised use ice to the area. Patient to use ibuprofen or Tylenol for discomfort. She is advised to return if severe headache, vomiting, difficulty with balance or speech, or condition should worsen anyway.] Disposition: [Discharged home in stable condition] Impression: [Closed head injury/concussion] This note was generated with [employer] dictation software. It may contain incorrect words, spelling, and punctuation that were not noted in review of the chart prior to signing ED Disposition - Plan for ED Patient: Referrals: Wilver Milton MD [Primary Care Provider] -
--- NOTE | 2020-03-12 19:56 | ED.RN ---
PER DATABASE, THIS PT DOES NOT NEED TO BE DRUG TESTED. CALLED [facility] AND SPOKE TO MICHAELA GALO WHO IS THE GENERAL MANAGEMENT [employer] AUTHOR ON [place]. HE IS REQUESTING A DRUG TEST. [facility] WILL BE CALLED
--- NOTE | 2020-03-12 20:00 | DCINST.ED_ITS ---
ED Disposition - Plan for ED Patient: Instructions: ED Concussion Referrals: Wilver Milton MD [Primary Care Provider] - [facility] [GROUP OF PHYSICIANS] - 3-5 Days
--- NOTE | 2020-03-12 20:00 | ED.DEP ---
ED Disposition - Plan for ED Patient: Instructions: ED Concussion Referrals: Wilver Milton MD [Primary Care Provider] - [facility] [place] [GROUP OF PHYSICIANS] - 3-5 Days
[2020-03-12] MEDS: Ondansetron ODT 4 MG Tablet PO (20:38)
[2020-03-12] MEDS: Diphth,Pertuss(Acell),Tet Vac 0.5 ML Vial IM (20:42)
== END 2020-03-12 20:49 | disposition home or self-care (01) ==
LOC: ED 20:03
PROVIDERS: Emergency Provider Emergency Medicine; PCP Family Medicine
DX: S06.0X0A Concussion without loss of consciousness, initial encounter (principal); S00.01XA Abrasion of scalp, initial encounter; Z23 Encounter for immunization; W22.09XA Striking against other stationary object, initial encounter; Y93.9 Activity, unspecified; Y92.89 Other specified places as the place of occurrence of the external cause; Y99.0 Civilian activity done for income or pay; Z72.0 Tobacco use
CPT/HCPCS: 90471; 90715; 99283

== ENCOUNTER 2020-08-25 19:08 | Emergency (ER) | payer OTHER, MEDICAID, SELFPAY ==
[2020-08-17 12:07] VITALS: BMI 29.0
[2020-08-25 19:09] VITALS: BP 118/75; PULSE 105; RESP 18; TEMP 36.4; O2SAT 100; BMI 28.3
[2020-08-25 19:20] VITALS: TEMP 37.1; BMI 27.4
--- NOTE | 2020-08-25 19:29 | EDS_ITS ---
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 Patient sustained a laceration over the dorsal aspect of the proximal phalanx. She is up-to-date on tetanus. Patient is right-hand dominant. Tetanus Immunization: <5 years PFSH PFSH Home Medications NK 08/25/20 [History Last Taken Unknown] Allergy/AdvReac Type Severity Reaction Status Date / Time tioconazole [From Vagistat-1] Allergy Other Verified 08/25/20 19:12 Family History (Updated 08/17/20 @ 12:07 by Azul Wheatley, RN) Other Angina at rest Bipolar 1 disorder Depression Heart disease Social History Smoking Status: Current every day smoker tobacco type: cigarettes ROS ROS ED Constitutional Constitutional ED: Reports systems reviewed and no addt'l complaints, except as documented; Denies body ache(s), change in weight or chills Eyes Eyes: Denies acute decrease in peripheral vision, change in vision, double vision or loss of vision ENT ENT ED: Reports none; Denies ear pain, lip swelling, loss taste/smell, neck pain, otalgia or sore throat Cardiovascular Cardiovascular: Reports none; Denies abdominal pain, chest pain with activity, leg edema, lightheadedness, palpitations, rapid heart rate or syncope Respiratory/Chest Respiratory/Chest: Reports none; Denies change in mental status, dry cough, dyspnea, hemoptysis, shortness of breath at rest or shortness of breath with exertion Gastrointestinal Gastrointestinal: Reports none; Denies abdominal pain, change in stool character, diarrhea, hematemesis, hematochezia, melena, rectal bleeding or vomiting Genitourinary Genitourinary ED: Reports none; Denies abdominal discomfort, anuria, dysuria, genital pain or polyuria Musculoskeletal Musculoskeletal: Reports none; Denies arthralgias, back pain, difficulty walking, extremity pain, muscle weakness or myalgias Integumentary Reports none and other Details: Laceration right index finger ; Denies abscess or rash Neurologic Neurologic: Reports none; Denies abnormal gait, confusion, focal weakness, frequent falls, headache(s), loss of vision, numbness, paresthesias, radicular pain, vertigo or weakness Psychiatric Psychiatric: Reports systems reviewed and no addt'l complaints, except as documented and none; Denies behavioral changes, confusion, difficulty concentrating, hallucinations, suicidal ideation, tactile hallucinations or visual hallucinations Endocrine Endocrinology: Denies none, cold intolerance, excessive sweating, fatigue or heat intolerance Hematologic/Lymphatic Hematologic/Lymphatic: Reports none; Denies anemia, easy bleeding or easy bruising Allergic/Immunologic Allergic/Immunologic ED: Denies as per HPI, none, lip swelling, mouth swelling, throat swelling, tongue swelling or hives EXAM Physical Exam Const Vital Signs: 08/25/20 19:09 08/25/20 19:20 Temperature 97.5 F L 98.7 F Temperature Source Temporal Temporal Pulse Rate 105 H Respiratory Rate 18 Blood Pressure 118/75 Blood Pressure Mean 89 Pulse Ox 100 Oxygen Delivery Method Room Air Positive well nourished and well developed General Appearance ED: well developed and NAD HEENT Reports TM's clear and moist mucous membranes normocephalic and atraumatic; Negative for trauma or tenderness Tympanic Membrane ED: Yes TM's clear Eyes PERRL and EOMs intact bilaterally General Eye ED: Negative for pale conjunctiva or scleral icterus Neck no lymphadenopathy, supple and no JVD General: Negative for tenderness Chest Wall inspection of chest normal and palpation of chest normal Chest: Negative for tenderness Resp normal respiratory effort and clear to auscultation bilaterally Effort and Inspection: Negative for respiratory distress or pain with movement Auscultation: Negative for rhonchi, wheezes or diminished lung sounds Cardio regular rate, regular rhythm, S1 normal heart sound, S2 normal heart sound and n o murmurs Peripheral Pulses: pulses 2+ throughout GI normal to inspection, nondistended, normoactive bowel sounds, soft to palpation, non-tender, non-distended and no masses Back/Spine no CVA tenderness and no thoracic nor lumbar tenderness Extremity Extremity Narrative: Right index finger-patient has a flap-like laceration over the proximal aspect of the dorsum of the right proximal phalanx. Patient has normal flexion extension of the digit. She is neurovascular intact distally. No bony tenderness on exam. No deformity. General Extremety ED: Negative for edema General Extremity: Negative for edema Neuro oriented x3, CN's II-XII intact bilaterally, no sensory deficits noted and gait normal Sensorium / Orientation: awake, alert, oriented to person, oriented to place and oriented to time Motor Exam: strength 5/5 throughout and strength abnormal Psych mental status grossly normal Skin no rashes or lesions noted and no wounds MDM MDM MDM Narrative Medical decision making narrative: Patient had a flap-like laceration 2 cm her right index finger. Area was sterilely draped and prepped and anesthetized locally with 1% lidocaine. Wound cleansed with Shur-Clens and irrigated with copious saline. Using 5-0 nylon 4 single ruptured sutures placed with good wound edge approximation. Patient tolerated procedure well. No extensor tendon involvement noted. Procedures Lacerations 2 cm flap-like laceration right index finger: Length: 24 in Depth: Sub Q Shape: Flap Prep: Sterile Conditions Laceration repair: Lidocaine and Local Irrigated (ml): 50 Number of Sutures/[place]: 4 Suture Information: Ethilon, Simple and 5-0 Discharge Plan Triage Chief Complaint: Laceration ED Provider: Yamila Butt Dx/Rx/DC Orders Clinical Impression: Laceration of index finger of right hand without complication Instructions: ED Laceration, Hand: All Closures Prescriptions: No Action NK RF: 0 Primary Care Provider: Wilver Milton Referrals: Corporate,[facility], [place] [GROUP OF PHYSICIANS] - 10 Day for suture removal Wilver Milton MD [Primary Care Provider] - Disposition Disposition: Home, Self Care
[2020-08-25] MEDS: Lidocaine 1% (20 ml mdv) 20 ML Vial INFILT (19:47)
--- NOTE | 2020-08-25 19:48 | NURSING ---
Lidocaine was ordered twice. Only one bottle pulled for patient.
== END 2020-08-25 20:01 | disposition home or self-care (01) ==
PROVIDERS: Emergency Provider Emergency Medicine; PCP Family Medicine
DX: S61.210A Laceration without foreign body of right index finger without damage to nail, initial encounter (principal); W45.8XXA Other foreign body or object entering through skin, initial encounter; Y93.G1 Activity, food preparation and clean up; Y92.9 Unspecified place or not applicable; Y99.0 Civilian activity done for income or pay; F17.210 Nicotine dependence, cigarettes, uncomplicated
CPT/HCPCS: 12001; 99284

== ENCOUNTER 2020-08-26 14:15 | Emergency (ER) | payer MEDICAID, SELFPAY ==
[2020-08-25 19:20] VITALS: BMI 27.4
[2020-08-26 14:17] VITALS: BP 135/84; PULSE 117; RESP 16; TEMP 36.6; O2SAT 98; BMI 28.0
== END 2020-08-26 14:57 | disposition left against medical advice (07) ==
LOC: ED 15:00
PROVIDERS: PCP Family Medicine
DX: R11.2 Nausea with vomiting, unspecified (principal); Z53.21 Procedure and treatment not carried out due to patient leaving prior to being seen by health care provider

== ENCOUNTER 2020-09-30 13:30 | Outpatient (RCR) | payer MEDICAID, SELFPAY ==
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
--- NOTE | 2020-09-30 14:03 | HP.PTDCSUM ---
It has been my pleasure to treat HENRRY LARA referred by ASHELY LEAL, with the diagnosis of LUMBAR RADICULOPATHY AND DDD for a total of 8 visit(s). Discharge Date: 09/30/20 Please see the following information for a summary of their discharge status. Subjective: Back pain improved some.. Sitting and laying down worse. Squatting to kneeling posItion. Okay with bending.. LLE Pain Intensity (Out of 10): 0 RLE Pain Intensity (Out of 10): 0 % Improvement: 25 Objective/Function: POSTURE: MILD FORWARD POSTURE. NEURO: INTACT. PALPATION?UNTRMARKABLE. MMT: QUADS/HAMS 4/5,HIP FLEXION 4/5,ANKLE 4/5. LUMBAR ROM: FLEXION WFL,EXTENSION MIN/MOD LOSS PAIN Goal 1:: DECREASE C/O LOW BACK AND HECTOR LE SX'S. Goal Progress: Progressing Goal 2:: IMPROVE LIFTING, SITTING, STANDING, SLEEP, TRAVEL AND HOMEMAKING FUNCTION Goal Progress: Progressing Goal 3:: INSTRUCT IN PROPHYLAXIS Goal Progress: Progressing Plan: D/C RTD Discharge Comments: RTD If there are questions or concerns regarding this patient's physical therapy, please feel free to call me at [phone]. Thank you for the referral of this patient. Sincerely, Anurag Ruffin, PT, Cert MDT, OCS Balance/Gait/Functional tests - Balance/Special Test Scores Oswestry Low Back Score: 15
== END 2020-09-30 19:00 | disposition home or self-care (01) ==
LOC: PT 13:30
PROVIDERS: PCP Family Medicine
DX: M51.37 Other intervertebral disc degeneration, lumbosacral region (principal); M54.16 Radiculopathy, lumbar region
CPT/HCPCS: 97112; 97113; 97162; 97530

== ENCOUNTER → 2020-10-18 | Outpatient (CLI) | payer MEDICAID, SELFPAY | END | disposition home or self-care (01) | LOC: LABSPEC 11:39 | PROVIDERS: PCP Family Medicine; Visit Provider Physician Assistant Surgical | DX: R09.81 Nasal congestion (principal) | CPT/HCPCS: 87635; U0005; U0003 ==

== ENCOUNTER 2021-03-06 21:36 | Emergency (ER) | payer MEDICAID, SELFPAY ==
[2021-03-06 21:37] VITALS: BP 131/82; PULSE 100; RESP 18; TEMP 36.6; O2SAT 100; BMI 30.9
--- NOTE | 2021-03-06 21:58 | ED.VIS.FALL ---
HPI HPI - Fall History of Present Illness Chief Complaint: Fall Informant: patient Occured/Mechanism Occurred: Today and Hours Usually ambulates: Without assistance Pain/Injury Pain Location: lower extremity Current Severity: Mild Maximum Severity: Moderate Associated Symptoms Associated Symptoms: Negative for Parasthesias, Weakness, Loss of function, Inability to ambulate, Loss of consciousness and Amnesia Narrative Narrative: 41-year-old female with past medical history of sciatica. Was walking up her basement steps that are carpeted at home. Was looking at her phone one of her cats ran under her feet tripped her she fell landing on the last step injuring her right hip. Denies any other injury. No head injury. No LOC. No chest, abdominal or back pain. She has never had hip problems or hip surgery. Prior similar symptoms: No Recent Illness/Hospitalization: No PFSH PFSH Home Medications NK 08/25/20 [History Last Taken Unknown] Allergy/AdvReac Type Severity Reaction Status Date / Time tioconazole [From Vagistat-1] Allergy Other Verified 03/06/21 21:39 Family History Other Angina at rest Bipolar 1 disorder Depression Heart disease Social History Smoking Status: Current every day smoker tobacco type: cigarettes ROS ROS ED ROS Narrative Patient denies recent illness. Review of Systems ROS Unobtainable: Denies due to encephalopathy Constitutional Constitutional ED: Denies fever(s) Eyes Eyes: Denies change in vision ENT ENT ED: Denies ear pain Cardiovascular Cardiovascular: Denies chest pain Respiratory/Chest Respiratory/Chest: Denies dyspnea Gastrointestinal Gastrointestinal: Denies abdominal pain Genitourinary Genitourinary ED: Denies dysuria Musculoskeletal Musculoskeletal: Denies myalgias Integumentary Denies rash Neurologic Neurologic: Denies headache(s) Psychiatric Psychiatric: Denies depression Endocrine Endocrinology: Denies polyuria Hematologic/Lymphatic Hematologic/Lymphatic: Denies easy bruising Allergic/Immunologic Allergic/Immunologic ED: Denies urticaria EXAM Physical Exam Narrative Exam Narrative: 41-year-old female no acute distress. Vital signs stable afebrile. HEENT exam unremarkable atraumatic. Pupils round reactive light. Scalp nontender. C-spine nontender trachea midline. Full range of motion of neck. Lungs clear to auscultation bilaterally. Chest wall nontender. Ribs nontender. Heart regular rhythm rate about 95 no murmur. Abdomen soft nontender normal bowel sounds no peritoneal signs. Pelvic girdle intact. Tenderness on her right lateral hip. Over the greater trochanter. Small bruise. No bony deformity. Full flexion extension of both hips, knees, ankles and feet. Normal motor strength and sensation. Back and spine nontender. 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 Neurological awake and alert. GCS of 15. Const Vital Signs: 03/06/21 21:37 03/06/21 22:10 Temperature 97.9 F Temperature Source Temporal Pulse Rate 100 Respiratory Rate 18 Respiratory Effort Normal Blood Pressure 131/82 H Blood Pressure Mean 98 Pulse Ox 100 Oxygen Delivery Method Room Air Positive well nourished and well developed; Negative for cachectic, contractures or unkempt General Appearance ED: well developed and NAD; Negative for unkempt, cachectic or contractures Nutritional Appearance: Negative for cachectic HEENT Reports normocephalic atraumatic; Negative for trauma or tenderness Eyes PERRL and EOMs intact bilaterally Neck full ROM, no lymphadenopathy and supple General: Negative for tenderness Chest Wall inspection of chest normal and palpation of chest normal Resp normal respiratory effort, no retractions and clear to auscultation bilaterally Auscultation: Negative for rales, rhonchi or wheezes Cardio regular rate, regular rhythm, S1 normal heart sound, S2 normal heart sound and no murmurs GI non-tender, non-distended and no masses Auscultation: normoactive bowel sounds Palpation: soft; Negative for guarding Back/Spine no CVA tenderness General Back: Negative for CVA tenderness Cervical Spine: Negative for cervical spine tenderness Thoracic Spine / Upper Back: Negative for thoracic spinal tenderness Lumbar Spine / Lower Back: Negative for lumbar spinal tenderness or paraspinal muscle tenderness Extremity normal to inspection, full ROM, normal capillary refill, no joint enlargement, no clubbing, cyanosis or edema, no calf tenderness and no pedal edema Extremity Narrative: Tenderness right hip over the greater trochanter with an small bruise developing. No significant hematoma. No deformity. Full range of motion. Neuro oriented x3, moves all extremities and no focal motor deficits Raymond Coma Scale: document GCS findings Spontaneous Obeys Commands Oriented 15 Sensorium / Orientation: alert, oriented to person, oriented to place and oriented to time; Negative for orientation impaired, confused, lethargic or stuporous Psych mental status grossly normal and thought process normal Appearance: Negative for unkempt Mood & Affect: Negative for depressed or tearful Skin Lesions: no lesions Rashes: no rashes and No rashes noted MDM MDM MDM Narrative Medical decision making narrative: 41-year-old female fell on her steps injuring her right hip. X-ray being obtained. Clinically I suspect this to be a hip contusion. She has normal range of motion no deformity. She took ibuprofen at home. Repeat exam doing well at 10:18 PM. Radiography Diagnostic Testing: Right hip pelvis x-ray 3 views interpreted by myself shows no acute fracture. No hip fracture. No pelvic fractures. Discussed films with patient. Discharged home and treated as a hip contusion. Discharge Plan Triage Chief Complaint: Fall ED Provider: Hector Gomez Dx/Rx/DC Orders Clinical Impression: Contusion of hip Instructions: ED Contusion, Lower Extremity Prescriptions: No Action NK RF: 0 Primary Care Provider: Wilver Milton Referrals: Wilver Milton MD [Primary Care Provider] - 1 Week if not improving Activity Restrictions/Additional Instructions: Bruise to your right hip. Motrin for pain and swelling. Tylenol for pain. This will be sore but should progressively improve. If not improving follow-up to reexamine and possibly cabrera-rayed. Disposition Disposition: Home, Self Care
--- NOTE | 2021-03-06 22:02 | RAD_ITS ---
INDICATION: fall EXAMINATION/TECHNIQUE: X-RAY - RIGHT XR Hip Unilateral with Pelvis when performed; 2-3 Views 3 VIEWS COMPARISON: None. FINDINGS: SOFT TISSUES: No soft tissue swelling or gas. Bilateral Essure contraceptive devices are noted. BONES/JOINTS: No acute fracture or malalignment. Preservation of the joint space and no degenerative bony proliferative changes. There is mild bilateral coxa profunda. No sclerotic or destructive changes observed. RAD/HIP, UNI W/ Pelvis 2-3 Views IMPRESSION: No fracture or malalignment. Bilateral coxa profunda. Electronically Signed: Volodymyr Zhou DO at 22:54 EST Tel , Service support ,
== END 2021-03-06 22:21 | disposition home or self-care (01) ==
PROVIDERS: Emergency Provider Emergency Medicine; PCP Family Medicine; Visit Provider Emergency Medicine
DX: S70.01XA Contusion of right hip, initial encounter (principal); F17.210 Nicotine dependence, cigarettes, uncomplicated; W10.9XXA Fall (on) (from) unspecified stairs and steps, initial encounter
CPT/HCPCS: 73502; 99282

== ENCOUNTER 2021-12-20 04:09 | Emergency (ER) | payer MEDICAID, SELFPAY ==
[2021-12-20 04:10] VITALS: BP 127/82; PULSE 77; RESP 18; TEMP 36.6; O2SAT 99; BMI 29.9
--- NOTE | 2021-12-20 04:41 | EDS_ITS ---
HPI History of Present Illness Chief Complaint: Other, Pain/Inj Narrative Narrative: Patient is a 41-year-old female who states that she has been having recurrent swelling and pain to her lymph nodes. She states that about 3 weeks ago she came down with COVID. She states prior to developing COVID she had swelling to her lymph nodes which resolved but now has returned once again. She reports she has mild congestion and drainage at this time but otherwise denies any fevers chills or known sick contacts. She states that there is no difficulty breathing or swallowing but she is got persistent pain secondary to the lymphadenopathy and therefore comes in for evaluation. [facility] Medical History Encounter for screening for COVID-19 URI (upper respiratory infection) Home Medications oxycodone-acetaminophen 5 mg-325 mg tablet (Percocet) 1 tab PO Q6H PRN pain 3 days #12 tabs 12/20/21 [Rx Last Taken Unknown] Allergy/AdvReac Type Severity Reaction Status Date / Time tioconazole [From Vagistat-1] Allergy Other Verified 12/20/21 04:14 Family History Other Angina at rest Bipolar 1 disorder Depression Heart disease Social History Smoking Status: Current every day smoker tobacco type: cigarettes ROS ROS ED Constitutional Constitutional ED: Denies chills or fever(s) ENT ENT ED: Denies sore throat Cardiovascular Cardiovascular: Denies chest pain Respiratory/Chest Respiratory/Chest: Reports sputum; Denies cough or dyspnea Gastrointestinal Gastrointestinal: Denies abdominal pain, diarrhea, nausea or vomiting Genitourinary Genitourinary ED: Denies dysuria Musculoskeletal Musculoskeletal: Denies myalgias Integumentary Denies rash Neurologic Neurologic: Denies headache(s) Hematologic/Lymphatic Hematologic/Lymphatic: Reports lymphadenopathy; Denies easy bleeding or easy bruising EXAM Physical Exam Const Vital Signs: 12/20/21 04:10 Temperature 97.9 F Temperature Source Temporal Pulse Rate 77 Respiratory Rate 18 Blood Pressure 127/82 H Blood Pressure Mean 97 Pulse Ox 99 Oxygen Delivery Method Room Air Positive well nourished and well developed General Appearance ED: well developed HEENT Reports moist mucous membranes HEENT Narrative: There is cobblestoning the posterior pharynx consistent with sinus drainage but no airway edema or compromise. No trismus change in voice or difficulty with secretions Eyes PERRL and EOMs intact bilaterally Neck supple Neck Narrative: Tender anterior cervical lymphadenopathy present. No overlying erythema or warmth no crepitance palpated Resp normal respiratory effort and clear to auscultation bilaterally Cardio regular rate and regular rhythm Extremity normal to inspection Neuro oriented x3 and CN's II-XII intact bilaterally Sensorium / Orientation: alert Psych mental status grossly normal Skin no rashes or lesions noted MDM MDM MDM Narrative Medical decision making narrative: Patient presented to the ER afebrile and in no acute respiratory distress tolerating her secretions well without change in voice. There were no physical exam findings concerning for peritonsillar abscess or epiglottitis. She does have bilateral anterior cervical lymphadenopathy but no overlying erythema or warmth to suggest that they are necrotic or infected. Therefore at this time as she does not have airway compromise and no secondary physical exam findings concerning for infection I do not feel there is need for blood work or an emergent CAT scan. Patient was advised that these are most likely inflammatory in nature and will resolve on their own. However if they refused to improve then she should talk to her family doctor about an ultrasound and possible biopsy. Patient states she is agreeable to this plan and as she is having persistent pain that is keeping her from sleeping secondary to lymphadenopathy I will put her on a short round of medication Discharge Plan Triage Chief Complaint: Other, Pain/Inj ED Provider: Fabrizio Vanegas Dx/Rx/DC Orders Clinical Impression: Lymphadenopathy, anterior cervical Instructions: Lymphadenopathy Prescriptions: New oxycodone-acetaminophen [Percocet] 5-325 mg tablet 1 tab PO Q6H PRN (Reason: pain) 3 Days Qty: 12 0RF Primary Care Provider: Wilver Milton Referrals: Wilver Milton MD [Primary Care Provider] - Activity Restrictions/Additional Instructions: Please talk to your family doctor about obtaining outpatient ultrasound and or biopsy of your lymph nodes based on the recurrent swelling and return to the ER should you have any further concerns Disposition Disposition: Home, Self Care Discharge Date/Time: 12/20/21 04:55
[2021-12-20] MEDS: oxyCODONE 5 MG Tablet 10 MG PO (04:47)
== END 2021-12-20 04:55 | disposition home or self-care (01) ==
PROVIDERS: Emergency Provider Emergency Medicine; PCP Family Medicine; Visit Provider Emergency Medicine
DX: R59.0 Localized enlarged lymph nodes (principal); F17.210 Nicotine dependence, cigarettes, uncomplicated; Z86.16 Personal history of COVID-19
CPT/HCPCS: 99282

== ENCOUNTER 2022-01-06 14:54 | Emergency (ER) | payer MEDICAID, SELFPAY ==
[2022-01-06 14:56] VITALS: BP 123/85; PULSE 96; RESP 16; TEMP 36.2; O2SAT 100; BMI 29.2
--- NOTE | 2022-01-06 16:16 | EKG12_ITS ---
Test Reason : Blood Pressure : / mmHG Vent. Rate : 087 BPM Atrial Rate : 087 BPM P-R Int : 154 ms QRS Dur : 088 ms QT Int : 362 ms P-R-T Axes : 036 025 -02 degrees QTc Int : 435 ms Normal sinus rhythm Nonspecific T wave abnormality Abnormal ECG Confirmed by PROSPER BURT, MESFIN ([id number]), image editor KATELYN HOUSTON ([id number]) on 01/07/2022 9:19:39 AM Referred By: Confirmed By:MESFIN CHENG MD
--- NOTE | 2022-01-06 16:17 | EX.ED.DYSGE1 ---
HPI History of Present Illness Chief Complaint: Dizziness Detail of Chief Complaint: Dizziness that started 1 week ago Informant: patient Narrative Narrative: Patient presents to the emergency department complaint of dizziness that initially started a week ago. 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 Patient had another episode 5 days ago for which she went to urgent care and was diagnosed with vertigo. Patient sounds like she had a Hallpike maneuver that was negative for nystagmus at that time. Patient states that after she has these spells sometimes will have maybe a mild frontal headache but otherwise has not had headaches. She is not had any head injuries. She denies recent illness. Last menstrual period was December 12. Today while at work she had another episode of dizziness which initially started while at home but once she got to work she started feeling hot and jittery and short of breath and sweaty and so they referred her to the emergency department. Patient states her symptoms lasted about 20 minutes but seem to resolve. Patient had taken some meclizine earlier this morning but really did not feel like it helped her very much. [facility] Medical History (Updated 01/06/22 @ 17:[address] Yamila Butt, DO) Encounter for screening for COVID-19 URI (upper respiratory infection) Vertigo Home Medications oxycodone-acetaminophen 5 mg-325 mg tablet (Percocet) 1 tab PO Q6H PRN pain 3 days #12 tabs 12/20/21 [Rx Last Taken Unknown] meclizine 25 mg chewable tablet 25 mg PO TID PRN motion sickness #30 tabs 01/02/22 [Rx Last Taken Unknown] Allergy/AdvReac Type Severity Reaction Status Date / Time tioconazole [From Vagistat-1] Allergy Other Verified 01/06/22 14:55 Family History Other Angina at rest Bipolar 1 disorder Depression Heart disease Social History Smoking Status: Current every day smoker tobacco type: cigarettes ROS ROS ED Review of Systems ROS Unobtainable: other Constitutional Constitutional ED: Reports lethargy; Denies chills, fever(s), sweats or weight loss Eyes Eyes: Denies blurry vision, change in vision or diplopia ENT ENT ED: Denies rhinorrhea or sore throat Cardiovascular Cardiovascular: Reports chest pain and racing heartbeat; Denies orthopnea Respiratory/Chest Respiratory/Chest: Reports dyspnea; Denies cough, dyspnea on exertion, orthopnea or sputum Gastrointestinal Gastrointestinal: Reports nausea; Denies abdominal pain, diarrhea or vomiting Genitourinary Genitourinary ED: Denies dysuria, hematuria or urinary frequency Musculoskeletal Musculoskeletal: Denies arthralgias, back pain, myalgias or neck pain Integumentary Denies abscess, Abrasions or rash Neurologic Neurologic: Reports headache(s) and other Details: Dizziness ; Denies weakness Psychiatric Psychiatric: Denies anxiety, depression or suicidal thoughts Endocrine Endocrinology: Denies polydipsia, polyphagia or polyuria Hematologic/Lymphatic Hematologic/Lymphatic: Denies easy bleeding, easy bruising or lymphadenopathy Allergic/Immunologic Allergic/Immunologic ED: Denies mouth swelling, tongue swelling or urticaria EXAM Physical Exam Const Vital Signs: 01/06/22 14:56 01/06/22 16:06 01/06/22 16:43 Temperature 97.1 F L Temperature Source Temporal Pulse Rate 96 Pulse Rate [Lying] 88 Pulse Rate [Sitting (for 1 minute prior to obtaining)] 92 Pulse Rate [Standing (for 1 minute prior to obtaining)] 99 Respiratory Rate 16 Respiratory Effort Normal Non-Labored Blood Pressure 123/85 H Blood Pressure [Lying] 113/76 Blood Pressure [Sitting (for 1 minute prior to obtaining)] 114/83 H Blood Pressure [Standing (for 1 minute prior to obtaining)] 112/81 H Blood Pressure Mean 97 Blood Pressure Mean [Lying] 88 Blood Pressure Mean [Sitting (for 1 minute prior to obtaining)] 93 Blood Pressure Mean [Standing (for 1 minute prior to obtaining)] 91 Pulse Ox 100 Oxygen Delivery Method Room Air Positive well nourished and well developed General Appearance ED: well developed and NAD HEENT Reports TM's clear and moist mucous membranes normocephalic and atraumatic; Negative for trauma or tenderness Tympanic Membrane ED: Yes TM's clear Eyes PERRL and EOMs intact bilaterally General Eye ED: Negative for pale conjunctiva or scleral icterus Neck no lymphadenopathy, supple and no JVD General: Negative for tenderness Chest Wall inspection of chest normal and palpation of chest normal Chest: Negative for tenderness Resp normal respiratory effort and clear to auscultation bilaterally Effort and Inspection: Negative for respiratory distress or pain with movement Auscultation: Negative for rhonchi, wheezes or diminished lung sounds Cardio regular rate, regular rhythm, S1 normal heart sound, S2 normal heart sound and no murmurs Peripheral Pulses: pulses 2+ throughout GI normal to inspection, nondistended, normoactive bowel sounds, soft to palpation, non-tender, non-distended and no masses Back/Spine no CVA tenderness and no thoracic nor lumbar tenderness Extremity normal to inspection General Extremety ED: Negative for edema General Extremity: Negative for edema Neuro oriented x3, CN's II-XII intact bilaterally, no sensory deficits noted and gait normal Sensorium / Orientation: awake, alert, oriented to person, oriented to place and oriented to time Motor Exam: strength 5/5 throughout and strength abnormal Psych mental status grossly normal Skin no rashes or lesions noted and no wounds MDM MDM MDM Narrative Medical decision making narrative: The line established on arrival. Patient had orthostatic vital signs that were negative. CBC with differential was normal. Chemistries were normal. Troponin was normal. EKG showed sinus rhythm with nonspecific ST changes. Troponin was normal. Urinalysis was normal. Her Hallpike maneuver was negative. This point etiology of her dizziness is unclear. Patient advised to follow-up with her primary care physician within next 3 to 5 days. She is advised not to drive if at all symptomatic. Lab Data Attestation: I reviewed the patient's lab results. Labs: Laboratory Results - last 24 hr 01/06/22 01/06/22 01/06/22 16:26 16:26 16:26 WBC 9.9 RBC 4.85 Hgb 14.4 Hct 44.4 MCV 91.5 MCH 29.7 MCHC 32.4 RDW Std Deviation 45.9 H RDW Coeff of Lili 13.4 Plt Count 84 L MPV 12.0 Immature Gran % (Auto) 0.300 Neut % (Auto) 56.1 Lymph % (Auto) 34.7 Emmet % (Auto) 6.0 Eos % (Auto) 2.3 Baso % (Auto) 0.6 Absolute Neuts (auto) 5.5 Absolute Lymphs (auto) 3.42 Nucleated RBC % 0 Platelet Estimate MOD DEC Anisocytosis RARE Macrocytosis RARE Sodium 139 Potassium 4.1 Chloride 110 H Carbon Dioxide 25.0 Anion Gap 4 L BUN 15 Creatinine 0.59 Estim Creat Clear Calc 110.55 Est GFR (MDRD) Af Amer 144 Est GFR (MDRD) Non-Af 119 BUN/Creatinine Ratio 25.3 H Glucose 101 Calcium 9.8 Troponin I High Sens 3 Serum , Qual NEGATIVE Urine Color Urine Clarity Urine pH Ur Specific [place] Urine Protein Urine Glucose (UA) Urine Ketones Urine Occult Blood Urine Nitrite Urine Bilirubin Urine Urobilinogen Ur Leukocyte Esterase Urine RBC Urine WBC Ur Squamous Epith Cells Urine Bacteria Urine Mucus 01/06/22 16:26 WBC RBC Hgb Hct MCV MCH MCHC RDW Std Deviation RDW Coeff of Lili Plt Count MPV Immature Gran % (Auto) Neut % (Auto) Lymph % (Auto) Emmet % (Auto) Eos % (Auto) Baso % (Auto) Absolute Neuts (auto) Absolute Lymphs (auto) Nucleated RBC % Platelet Estimate Anisocytosis Macrocytosis Sodium Potassium Chloride Carbon Dioxide Anion Gap BUN Creatinine Estim Creat Clear Calc Est GFR (MDRD) Af Amer Est GFR (MDRD) Non-Af BUN/Creatinine Ratio Glucose Calcium Troponin I High Sens Serum , Qual Urine Color Yellow Urine Clarity Clear Urine pH 6.0 Ur Specific [place] 1.020 Urine Protein Negative Urine Glucose (UA) Normal Urine Ketones Negative Urine Occult Blood 50 H Urine Nitrite Negative Urine Bilirubin Negative Urine Urobilinogen Normal Ur Leukocyte Esterase Negative Urine RBC 0 SEEN Urine WBC 0 SEEN Ur Squamous Epith Cells 0-5 SEEN Urine Bacteria 0 SEEN Urine Mucus 0 SEEN Discharge Plan Triage Chief Complaint: Dizziness ED Provider: Yamila Butt Dx/Rx/DC Orders Clinical Impression: Dizziness Instructions: ED Dizziness, Uncertain Cause Prescriptions: No Action meclizine 25 mg tablet,chewable 25 mg PO TID PRN (Reason: motion sickness) Qty: 30 0RF oxycodone-acetaminophen [Percocet] 5-325 mg tablet 1 tab PO Q6H PRN (Reason: pain) 3 Days Qty: 12 0RF Primary Care Provider: Wilver Milton Referrals: Wilver Milton MD [Primary Care Provider] - 3-5 Days Disposition Disposition: Home, Self Care
[2022-01-06 16:43] VITALS: BP 112/81; BP 113/76; BP 114/83; PULSE 88; PULSE 92; PULSE 99
[2022-01-06 16:43] LABS: Bacteria 0 SEEN /hpf (None Seen); Mucous, Urine 0 SEEN /hpf (<or=2+); Red Blood Cells-Urine 0 SEEN /hpf (0-5); White Blood Cells 0 SEEN /hpf (0-5)
[2022-01-06] MEDS: 0.9% Normal Saline 1,000 ML 1000 ML IV (16:43)
[2022-01-06 16:47] LABS: Color, Urine Yellow (Yellow); Glucose, Dipstick Normal (Normal); Ketone-Dipstick Negative (Negative); Leukocyte Esterase-Dipstick Negative /ul (Negative); Nitrite-Dipstick Negative (Negative); Occult Blood-Urine 50 /ul (Negative); Protein-Dipstick Negative (Negative); Urine Bilirubin Dipstick Negative (Negative); Urine Clarity Clear (Clear); Urine Urobilinogen Normal (Normal)
[2022-01-06 16:48] LABS: Absolute Lymphocyte Count 3.42 X10^3/uL (0.83-4.51); Absolute Neutrophil Count 5.5 X10^3/uL (2.0-7.7); Basophil# 0.06 X10^3/uL; Basophil% 0.6 % (0-1); Eosinophil# 0.23 X10^3/uL; Eosinophils% 2.3 % (0-5); Hematocrit 44.4 % (37-47); Hemoglobin 14.4 g/dL (12.0-15.0); Lymphocyte # 3.42 X10^3/ul (0.83-4.51); Lymphocyte % 34.7 % (19-41); Mean Corp Hgb Conc 32.4 g/dL (32-36); Mean Corpuscular Hgb 29.7 pg (27.0-32.0); Mean Corpuscular Volume 91.5 fL (81-99); Monocyte# 0.59 X10^3/uL; NRBC Flagged by Analyzer 0 % (0-5); Neutrophil # 5.52 X10^3/uL (2.7-7.7); Neutrophil % 56.1 % (47-70); POSITIVE COUNT YES; Platelet Count 84 K/mm3 (150-450); RBC Distribution Width CV 13.4 % (11.6-14.6); RBC Distribution Width SD 45.9 fl (35.1-43.9); Red Blood Count 4.85 M/mm3 (4.2-5.4); White Blood Count 9.9 K/mm3 (4.4-11.0)
[2022-01-06 16:50] LABS: Differential Indicated SCAN CRITERIA MET
[2022-01-06 16:55] LABS: Internal QC Validated? YES +Cl - CLEAR BKGD; Pregnancy, Serum, hCG Quali. NEGATIVE Negative; Squamous Epithelial Cells - UA 0-5 SEEN /hpf (5-10)
[2022-01-06 17:20] LABS: Platelet Estimate MOD DEC (ADEQ)
[2022-01-06 17:21] LABS: Anisocytosis RARE; Macrocytosis RARE
[2022-01-06 17:22] LABS: Anion Gap 4 (5-15); BUN 15 mg/dL (7-18); BUN/Creat Ratio 25.3 RATIO (10-20); Calcium,Total 9.8 mg/dL (8.5-10.1); Chloride 110 mmol/L (98-107); Creatinine, Serum 0.59 mg/dL (0.55-1.02); EST Glomerular Filtration Rate 119 mL/min (>60); Est Glom Filt Rate - Afr Amer 144 mL/min (>60); Estimated Creatinine Clearance 110.55 ml/min; Glucose 101 mg/dL (74-106); Potassium 4.1 mmol/L (3.5-5.1); Sodium Level 139 mmol/L (136-145); Troponin-I HS 3 pg/mL (3.0-54.0)
[2022-01-06 17:49] VITALS: BP 127/82; PULSE 89; RESP 12; O2SAT 100
== END 2022-01-06 17:49 | disposition home or self-care (01) ==
PROVIDERS: Emergency Provider Emergency Medicine; PCP Family Medicine; Visit Provider Emergency Medicine
DX: R42 Dizziness and giddiness (principal); R06.02 Shortness of breath; F17.210 Nicotine dependence, cigarettes, uncomplicated; Z79.899 Other long term (current) drug therapy
CPT/HCPCS: 80048; 81001; 84484; 84703; 85025; 93005; 96360; 99284; J7030; A4216

== ENCOUNTER 2022-06-13 06:18 | Emergency (ER) | payer MEDICAID, SELFPAY ==
[2022-06-13 06:19] VITALS: BP 120/95; PULSE 90; RESP 18; TEMP 36.1; O2SAT 98; BMI 28.8
--- NOTE | 2022-06-13 06:49 | RAD_ITS ---
INDICATION: chest pain EXAMINATION/TECHNIQUE: X-RAY - XR Chest 2 Views COMPARISON: FINDINGS: LINES/DEVICES: None. LUNGS: No consolidation. No pneumothorax. MEDIASTINUM: Unremarkable. CARDIAC SILHOUETTE: Not enlarged. BONES AND SOFT TISSUES: No acute abnormalities. RAD/Chest PA and Lateral IMPRESSION: No evidence of active intrathoracic disease. Electronically Signed: Ekta Frank MD at 8:00 EDT ,
[2022-06-13 07:07] LABS: Absolute Lymphocyte Count 3.61 X10^3/uL (0.83-4.51); Absolute Neutrophil Count 4.5 X10^3/uL (2.0-7.7); Basophil# 0.03 X10^3/uL; Basophil% 0.3 % (0-1); Eosinophil# 0.22 X10^3/uL; Eosinophils% 2.5 % (0-5); Hematocrit 43.6 % (37-47); Hemoglobin 14.4 g/dL (12.0-15.0); Lymphocyte # 3.61 X10^3/ul (0.83-4.51); Lymphocyte % 40.2 % (19-41); Mean Corpuscular Hgb 30.1 pg (27.0-32.0); Mean Platelet Vol. 9.9 fl (6.2-12.0); Monocyte# 0.56 X10^3/uL; Monocyte% 6.2 % (0-10); NRBC Flagged by Analyzer 0 % (0-5); Neutrophil # 4.53 X10^3/uL (2.7-7.7); Neutrophil % 50.6 % (47-70); Platelet Count 415 K/mm3 (150-450); RBC Distribution Width SD 43.8 fl (35.1-43.9); Red Blood Count 4.79 M/mm3 (4.2-5.4)
[2022-06-13 07:24] LABS: Anion Gap 7 (5-15); BUN 20 mg/dL (7-18); BUN/Creat Ratio 32.1 RATIO (10-20); Calcium,Total 9.1 mg/dL (8.5-10.1); Chloride 110 mmol/L (98-107); Creatinine, Serum 0.62 mg/dL (0.55-1.02); EST Glomerular Filtration Rate 112 mL/min (>60); Est Glom Filt Rate - Afr Amer 136 mL/min (>60); Estimated Creatinine Clearance 104.16 ml/min; Glucose 106 mg/dL (74-106); Magnesium 2.3 mg/dL (1.6-2.6); Potassium 3.7 mmol/L (3.5-5.1); Sodium Level 140 mmol/L (136-145); Troponin-I HS 3 pg/mL (3.0-54.0)
--- NOTE | 2022-06-13 07:45 | EDS_ITS ---
HPI History of Present Illness Chief Complaint: Other, Pain/Inj Narrative Narrative: Patient is a 42-year-old female with past medical history of gastritis seasonal allergies and depression. She states that she woke to use the bathroom this morning and after doing so had a sudden onset of nausea followed by some pain running down her left arm. She states there is no associated diaphoresis shortness of breath or vomiting. She states that the pain was more sharp in nature. She states it lasted for about 15 minutes and then resolve. She reports that she is unsure if this was cardiac or a pinched nerve or even a panic attack and secondary to this comes in for evaluation [facility] Medical History (Updated 06/13/22 @ 07:[address] Fabrizio Vanegas, DO) Encounter for screening for COVID-19 URI (upper respiratory infection) Vertigo Home Medications cetirizine 10 mg tablet 10 mg PO DAILY 06/13/22 [History Last Taken Unknown] desvenlafaxine succinate 50 mg tablet,extended release 24 hr 50 mg PO DAILY 06/13/22 [History Last Taken Unknown] famotidine 10 mg tablet (Pepcid AC) 10 mg PO DAILY 06/13/22 [History Last Taken Unknown] Allergy/AdvReac Type Severity Reaction Status Date / Time tioconazole [From Vagistat-1] Allergy Other Verified 06/13/22 06:22 Family History Other Angina at rest Bipolar 1 disorder Depression Heart disease Social History Smoking Status: Current every day smoker tobacco type: cigarettes ROS ROS ED Constitutional Constitutional ED: Denies chills or fever(s) ENT ENT ED: Denies sore throat Cardiovascular Cardiovascular: Denies chest pain Respiratory/Chest Respiratory/Chest: Denies cough or dyspnea Gastrointestinal Gastrointestinal: Reports nausea; Denies abdominal pain, diarrhea or vomiting Genitourinary Genitourinary ED: Denies dysuria Musculoskeletal Musculoskeletal: Reports back pain and other Details: Positive left arm pain Integumentary Denies rash Neurologic Neurologic: Denies headache(s) or paresthesias Psychiatric Psychiatric: Reports depression Hematologic/Lymphatic Hematologic/Lymphatic: Denies easy bleeding or easy bruising EXAM Physical Exam Const Vital Signs: 06/13/22 06:19 06/13/22 06:24 Temperature 97.0 F L Temperature Source Temporal Pulse Rate 90 Respiratory Rate 18 Respiratory Effort Non-Labored Respiratory Pattern Normal Blood Pressure 120/95 H Blood Pressure Mean 103 Pulse Ox 98 Oxygen Delivery Method Room Air Positive well nourished and well developed General Appearance ED: well developed HEENT Reports moist mucous membranes Eyes PERRL and EOMs intact bilaterally Neck supple Neck Narrative: No bony deformity or step-off of the cervical spine no midline pain with palpation. Negative Spurling sign bilaterally Chest Wall palpation of chest normal Resp normal respiratory effort and clear to auscultation bilaterally Cardio regular rate and regular rhythm Rate: other Other Details: Radial pulses are plus 2 out of 4 bilaterally are equal and symmetric GI normal to inspection, nondistended, normoactive bowel sounds, non-tender, non- distended and no masses GI Narrative: No voluntary guarding or rigidity no pulsatile mass Auscultation: normoactive bowel sounds Palpation: soft Back/Spine Back/Spine Narrative: There is mild pain with palpation along the left scapula Extremity normal to inspection Extremity Narrative: Bilateral upper and lower extremities are neurovascularly intact AIN/PIN are intact and normal for bilateral upper extremities No asymmetric edema no pitting edema negative Homans' sign bilaterally Neuro oriented x3 and CN's II-XII intact bilaterally Sensorium / Orientation: alert Psych mental status grossly normal Skin no rashes or lesions noted MDM MDM MDM Narrative Medical decision making narrative: Patient presented to the ER with spontaneous resolution of her symptoms. She is low risk for cardiovascular event. Differential includes cervical radiculopathy superficial pinched nerve acute coronary syndrome lung pathology such as pneumonia pneumothorax or tumor and secondary to this a basic work-up was obtained. Labs showed normal troponin at 3 with no signs of acute kidney injury or blood loss anemia. EKG is sinus rhythm. Chest x-ray reveals no acute lung pathology. On reevaluation patient states that her pain is still been resolved and as work-up is negative and she is low risk for cardiovascular event is otherwise safe for discharge History & Record Review Discussion w/independent historian: Patient Lab Data Attestation: I reviewed the patient's lab results. Labs: Laboratory Results - last 24 hr 06/13/22 06/13/22 07:00 07:00 WBC 9.0 RBC 4.79 Hgb 14.4 Hct 43.6 MCV 91.0 MCH 30.1 MCHC 33.0 RDW Std Deviation 43.8 RDW Coeff of Lili 13.0 Plt Count 415 MPV 9.9 Immature Gran % (Auto) 0.200 Neut % (Auto) 50.6 Lymph % (Auto) 40.2 [place] % (Auto) 6.2 Eos % (Auto) 2.5 Baso % (Auto) 0.3 Absolute Neuts (auto) 4.5 Absolute Lymphs (auto) 3.61 Nucleated RBC % 0 Sodium 140 Potassium 3.7 Chloride 110 H Carbon Dioxide 23.0 Anion Gap 7 BUN 20 H Creatinine 0.62 Estim Creat Clear Calc 104.16 Est GFR (MDRD) Af Amer 136 Est GFR (MDRD) Non-Af 112 BUN/Creatinine Ratio 32.1 H Glucose 106 Calcium 9.1 Magnesium 2.3 Troponin I High Sens 3 Radiography Diagnostic Testin view chest x-ray as interpreted by the emergency medicine physician reveals no acute infiltrate pneumothorax or pleural effusion Discharge Plan Triage Chief Complaint: Other, Pain/Inj ED Provider: Fabrizio Vanegas Dx/Rx/DC Orders Clinical Impression: Acute nonspecific chest pain with low risk of coronary artery disease, History of depression Instructions: ED Chest Pain, Uncertain Cause Prescriptions: No Action cetirizine 10 mg tablet 10 mg PO DAILY Label Comments: TAKE 1 TABLET BY MOUTH DAILY desvenlafaxine succinate 50 mg tablet extended release 24 hr 50 mg PO DAILY Label Comments: TAKE 1 TABLET BY MOUTH ONCE DAILY famotidine [Pepcid AC] 10 mg Tablet 10 mg PO DAILY Primary Care Provider: Wilver Milton Referrals: Wilver Milton MD [Primary Care Provider] - Activity Restrictions/Additional Instructions: Your work-up today shows no sign of acute cardiac event or lung pathology. Follow-up with your family doctor for repeat evaluation and return to the ER should you have any further concerns Disposition Disposition: Home, Self Care
[2022-06-13 08:07] VITALS: BP 120/70; PULSE 72; RESP 14; O2SAT 99
== END 2022-06-13 08:08 | disposition home or self-care (01) ==
PROVIDERS: Emergency Provider Emergency Medicine; PCP Family Medicine; Visit Provider Emergency Medicine
DX: R07.89 Other chest pain (principal); M79.602 Pain in left arm; F17.210 Nicotine dependence, cigarettes, uncomplicated
CPT/HCPCS: 71046; 80048; 83735; 84484; 85025; 93005; 99283; A4216

== ENCOUNTER → 2022-07-06 | Outpatient (CLI) | payer MEDICAID, SELFPAY ==
--- NOTE | 2022-07-06 12:33 | MRI_ITS ---
EXAM: MR RIGHT LOWER EXTREMITY WITHOUT INTRAVENOUS CONTRAST, ANKLE CLINICAL INDICATION: RT ANKLE PLANTAR FASCIITIS TECHNIQUE: Multiplanar and multisequence MR images of the right ankle without intravenous contrast. COMPARISON: No relevant prior studies available. FINDINGS: LIGAMENTS: ANTERIOR TALOFIBULAR: Unremarkable. Intact. POSTERIOR TALOFIBULAR: Unremarkable. Intact. ANTERIOR TIBIOFIBULAR: Unremarkable. Intact. POSTERIOR TIBIOFIBULAR: Unremarkable. Intact. CALCANEOFIBULAR: Unremarkable. Intact. DELTOID: Unremarkable. Intact. SPRING: Unremarkable. Intact. LISFRANC: Unremarkable. Intact. TENDONS: ACHILLES: Unremarkable. Intact. FLEXOR: Unremarkable. Intact. EXTENSOR: Unremarkable. Intact. PERONEAL: Unremarkable. Intact. TIBIALIS ANTERIOR: Unremarkable. Intact. TIBIALIS POSTERIOR: Unremarkable. Intact. MUSCLES: Unremarkable. Normal bulk and signal. FLUID: Small posterior tibiotalar joint effusion. SINUS TARSI: Unremarkable. Normal fat in the sinus tarsi. TARSAL TUNNEL: Unremarkable. PLANTAR FASCIA: Mild stranding and subcutaneous edema about the central and lateral cord of plantar fascia suggest a mild component of active plantar fasciitis. Related minimal adjacent calcaneal bone marrow signal alteration. CARTILAGE: Unremarkable. No osteochondral lesion. Articular cartilage intact. BONES/JOINTS: Unremarkable. Talar dome intact. No other bone marrow signal alterations. OTHER SOFT TISSUES: Mild stranding and subcutaneous edema about the central and lateral cord of plantar fascia suggest a mild component of active plantar fasciitis. Related minimal adjacent calcaneal bone marrow signal alteration. MRI/Lower Ext Joint Only (Routine) IMPRESSION: 1. Mild stranding and subcutaneous edema about the central and lateral cord of plantar fascia suggests a mild component of active plantar fasciitis. Related minimal adjacent calcaneal bone marrow signal alteration. 2. No other significant internal derangement of the ankle. Electronically Signed: Fabrizio Baig MD at 21:46 EDT ,
--- NOTE | 2022-07-06 12:33 | MRI_ITS ---
EXAM: MR LEFT LOWER EXTREMITY WITHOUT INTRAVENOUS CONTRAST, ANKLE CLINICAL INDICATION: LEFT ANKLE PLANTAR FASCIITIS TECHNIQUE: Multiplanar and multisequence MR images of the left ankle without intravenous contrast. COMPARISON: No relevant prior studies available. FINDINGS: LIGAMENTS: ANTERIOR TALOFIBULAR: Unremarkable. Intact. POSTERIOR TALOFIBULAR: Unremarkable. Intact. ANTERIOR TIBIOFIBULAR: Unremarkable. Intact. POSTERIOR TIBIOFIBULAR: Unremarkable. Intact. CALCANEOFIBULAR: Unremarkable. Intact. DELTOID: Unremarkable. Intact. SPRING: Unremarkable. Intact. LISFRANC: Unremarkable. Intact. TENDONS: ACHILLES: Unremarkable. Intact. FLEXOR: Unremarkable. Intact. EXTENSOR: Unremarkable. Intact. PERONEAL: Unremarkable. Intact. TIBIALIS ANTERIOR: Unremarkable. Intact. TIBIALIS POSTERIOR: Unremarkable. Intact. MUSCLES: Unremarkable. Normal bulk and signal. FLUID: Small posterior subtalar joint effusion. SINUS TARSI: Sinus Tarsi is normal in appearance. TARSAL TUNNEL: Unremarkable. PLANTAR FASCIA: Chronic thickening of the central cord of plantar aponeurosis with minimal fluid signal surrounding the cord suggesting a mild plantar fasciitis. No adjacent bone marrow signal alterations. CARTILAGE: Unremarkable. No osteochondral lesion. Articular cartilage intact. BONES/JOINTS: Unremarkable. No other bone marrow signal alterations. No significant tibiotalar joint disease. OTHER SOFT TISSUES: Unremarkable. MRI/Lower Ext Joint Only (Routine) IMPRESSION: 1. Chronic thickening of the central cord of plantar aponeurosis with minimal fluid signal surrounding the cord suggesting a mild plantar fasciitis. No adjacent bone marrow signal alterations. 2. Small posterior subtalar joint effusion. Electronically Signed: Fabrizio Baig MD at 21:32 EDT ,
== END | disposition home or self-care (01) ==
LOC: MRI 12:21
PROVIDERS: PCP Family Medicine; Referring Provider Podiatrist; Visit Provider Podiatrist
DX: M72.2 Plantar fascial fibromatosis (principal)
CPT/HCPCS: 73721

== ENCOUNTER 2022-07-16 11:04 | Emergency (ER) | payer MEDICAID, SELFPAY ==
[2022-07-16 11:04] VITALS: BP 111/77; PULSE 91; RESP 16; TEMP 36.6; O2SAT 100; BMI 28.3
--- NOTE | 2022-07-16 11:46 | EX.ED.DYSGE1 ---
HPI <JOSE DANIEL Aparicio - Last Filed: 07/16/22 14:17> History of Present Illness Chief Complaint: Back Narrative Narrative: Patient presenting today with right-sided lumbar back pain that she has had for the past 2 days. She reports that the pain worsens with ROM and had a difficult time getting out of bed today due to the pain. She reports a history of chronic back pain but thinks this feels different. She is going to be seeing pain management and physical therapy in the next few weeks. She denies any injury to her back, fever, chills, history of IV drug use, urinary symptoms, saddle paresthesia, and bowel/bladder incontinence. PFSH <JOSE DANIEL Aparicio - Last Filed: 07/16/22 14:17> [facility] Medical History Encounter for screening for COVID-19 URI (upper respiratory infection) Vertigo Home Medications cetirizine 10 mg tablet 10 mg PO DAILY 06/13/22 [History Last Taken Unknown] famotidine 10 mg tablet (Pepcid AC) 10 mg PO DAILY 06/13/22 [History Last Taken Unknown] cyclobenzaprine 10 mg tablet 10 mg PO BID #14 TABLETS 07/16/22 [Rx Last Taken Unknown] ergocalciferol (vitamin D2) 1,250 mcg (50,000 unit) capsule 1,250 mcg PO QWEEK 07/16/22 [History Last Taken Unknown] naproxen 500 mg tablet,delayed release 500 mg PO BID 7 days #14 tabs 07/16/22 [Rx Last Taken Unknown] Allergy/AdvReac Type Severity Reaction Status Date / Time tioconazole [From Vagistat-1] Allergy Other Verified 07/16/22 11:07 Family History Other Angina at rest Bipolar 1 disorder Depression Heart disease Social History Smoking Status: Current every day smoker tobacco type: cigarettes ROS <JOSE DANIEL Aparicio - Last Filed: 07/16/22 14:17> ROS ED Constitutional Constitutional ED: Denies chills or fever(s) Cardiovascular Cardiovascular: Denies chest pain Respiratory/Chest Respiratory/Chest: Denies cough or dyspnea Gastrointestinal Gastrointestinal: Denies abdominal pain, nausea or vomiting Genitourinary Genitourinary ED: Denies dysuria, hematuria or urinary urgency Musculoskeletal Musculoskeletal: Reports back pain; Denies neck pain Integumentary Denies abscess, Abrasions or rash Neurologic Neurologic: Denies paresthesias or weakness Psychiatric Psychiatric: Denies anxiety or depression EXAM <JOSE DANIEL Aparicio - Last Filed: 07/16/22 14:17> Physical Exam Const Vital Signs: 07/16/22 11:04 Temperature 98 F Temperature Source Temporal Pulse Rate 91 Respiratory Rate 16 Blood Pressure 111/77 Blood Pressure Mean 88 Pulse Ox 100 Oxygen Delivery Method Room Air Positive well nourished, well developed and no apparent distress General Appearance ED: well developed HEENT Reports normocephalic and head/scalp atraumatic Mouth ED: Yes moist mucous membranes normal Eyes PERRL and EOMs intact bilaterally Neck full ROM and supple Chest Wall inspection of chest normal Resp normal respiratory effort and clear to auscultation bilaterally Cardio regular rate and regular rhythm GI soft to palpation, non-tender, non-distended and no masses Back/Spine normal ROM and normal to inspection Back/Spine Narrative: No cervical, thoracic, or lumbar midline tenderness. Paraspinal muscle tenderness to palpation to the right lumbar spine. Extremity normal to inspection and full ROM Neuro oriented x3, CN's II-XII intact bilaterally, moves all extremities, no focal motor deficits and no sensory deficits noted Sensorium / Orientation: awake and alert Motor Exam: strength 5/5 throughout Psych mental status grossly normal and thought process normal Skin no rashes or lesions noted and no wounds <Dr. Rakan Espino, - Last Filed: 07/16/22 18:51> Physical Exam Const Vital Signs: 07/16/22 11:04 Temperature 98 F Temperature Source Temporal Pulse Rate 91 Respiratory Rate 16 Blood Pressure 111/77 Blood Pressure Mean 88 Pulse Ox 100 Oxygen Delivery Method Room Air MDM <JOSE DANIEL Aparicio - Last Filed: 07/16/22 14:17> [facility] Narrative Medical decision making narrative: Patient presenting today with right-sided lumbar back pain that she has had for the past 2 days. She does have right-sided lumbar paraspinal tenderness to palpation there is also reproducible with range of motion such as sitting up in the examination bed. I do not feel that any imaging is indicated as patient did not have any injury to her back and I have considered cauda equina syndrome and spinal abscess but these are less likely given patient's history. She will be given Toradol here and a prescription for naproxen and Flexeril for home. She has been given return instructions and will be discharged home in stable condition. She is comfortable with plan. <Dr. Rakan Espino, DO - Last Filed: 07/16/22 18:51> [facility] Narrative Medical decision making narrative: Patient presenting today with right-sided lumbar back pain that she has had for the past 2 days. She does have right-sided lumbar paraspinal tenderness to palpation there is also reproducible with range of motion such as sitting up in the examination bed. I do not feel that any imaging is indicated as patient did not have any injury to her back and I have considered cauda equina syndrome and spinal abscess but these are less likely given patient's history. She will be given Toradol here and a prescription for naproxen and Flexeril for home. She has been given return instructions and will be discharged home in stable condition. She is comfortable with plan. Patient was seen and evaluated by the PA. Patient was treated with Toradol. The plan was to send the patient home with NSAIDs and Flexeril. Prior to my arrival to the room for examination the patient eloped. Discharge Plan Triage Chief Complaint: Back ED Midlevel Provider: Jeannette Gutiérrez ED Provider: Rakan Espino Dx/Rx/DC Orders Clinical Impression: Lumbar back pain Instructions: ED Back Sprain/Strain Prescriptions: New naproxen 500 mg tablet,delayed release (DR/EC) 500 mg PO BID 7 Days Qty: 14 0RF cyclobenzaprine 10 mg tablet 10 mg PO BID Qty: 14 0RF No Action cetirizine 10 mg tablet 10 mg PO DAILY Label Comments: TAKE 1 TABLET BY MOUTH DAILY famotidine [Pepcid AC] 10 mg Tablet 10 mg PO DAILY ergocalciferol (vitamin D2) 1,250 mcg (50,000 unit) capsule 1,250 mcg PO QWEEK Label Comments: TAKE 1 CAPSULE BY MOUTH ONCE A WEEK Rx Instructions: TUESDAYS Primary Care Provider: Wilver Milton Referrals: Wilver Milton MD [Primary Care Provider] - Activity Restrictions/Additional Instructions: Follow-up with your PCP in 3 to 5 days, return for any worsening of symptoms. Disposition Disposition: Home, Self Care Discharge Date/Time: 07/16/22 12:44
[2022-07-16] MEDS: Ketorolac 15 MG/ML Vial IM (12:07)
--- NOTE | 2022-07-16 12:43 | ED.RN ---
Pt. left without discharge instructions. Pt. states I dont want to waste anyone time Im leaving
== END 2022-07-16 12:44 | disposition left against medical advice (07) ==
LOC: ED 12:20
PROVIDERS: Emergency Provider Student in an Organized Health Care Education/Training Program; PCP Family Medicine; Visit Provider Student in an Organized Health Care Education/Training Program
DX: M54.50 Low back pain, unspecified (principal); G89.29 Other chronic pain; F17.210 Nicotine dependence, cigarettes, uncomplicated; Z79.899 Other long term (current) drug therapy
CPT/HCPCS: 99284

== ENCOUNTER 2022-08-19 15:30 | Outpatient (RCR) | payer MEDICAID, SELFPAY ==
--- NOTE | 2022-06-24 16:23 | HP.PTEVAL_ITS ---
Patient's Visit Information HENRRY LARA is a 42 year old F referred to Physical Therapy by Dr. Bal Yuan DPM with a diagnosis of B PF itis. Date of Evaluation: 06/24/22 Physical Therapist: Zachery Pickard DPT, OCS, CSCS - Visit Plan Frequency: 3x /Week Duration: 4-6 Weeks Plan: 3x/weel fpr 3-6 weeks. 1. US R PF origin, CFM and STM B PF and gastroc/soleus and stretch same, DF ROM and mobs. 2. eccentric HC strength and ankle stabs. 3. ensure management of condition with orthotics, roll massage and HEP. Does not wish to try RPW or ionto at this point. - Subjective L foot hurting > 1 yr. R one is in the last couple months. Pain is B heels plantar surface. Insidious onset. Not improving. R up to 5/10 after 3-4 hrs on feet and when getting out of bed. Limps initially in am, and when gets up from sitting and when on feet too much. Sleep is OK. Not employed, was working at [employer] but cannot do it due to feet. Avoiding activities at home inclduing vaccuuming, picking up, walking dogs, going to basement because they hurt. being on feet long time is hard. Good day every now and then. Push mowing is hard. Has tried many meds and exercises ( pulling toes up and boots which has not helped. Has custom insoles which she did not use at first but does now. - Pain B foot pain Pain Intensity (Out of 10): 2 Pain Intensity Range: 0, 5 Comment: r>L - Objective Walks avoiding heel strike R >L but I, trasnfers I bed and chair. Max tight in both gasroc and soleus B, -5 DF knee straight and bent B. Other AROM WFL ankle hip and knee. reflexes 2/3 patella and achilles. sensation LE WNL to gross light touch. Strength is 4/5 ankles and knees. Decent foot biomechanics B without fallen arches. Tender to palpation R heel PF origin, L not bad today, body of both PF minimallly sore and tight. - Balance/Special Test Scores Lower Extremity Functional Score: 49 - Goals Goal 1:: Pt feel pain in feet is 75% better at 1/10 at worst Goal Time Frame: 4-6 Weeks Goal 2:: I managemnt of condition Goal Time Frame: 4-6 Weeks Goal 3:: Vaccuum and chores at home without increased pain Goal Time Frame: 4-6 Weeks Goal 4:: LEFS score 55 Goal Time Frame: 4-6 Weeks Goal 5:: Plan to return to work as able Goal Time Frame: 4-6 Weeks - Rehabilitation Potential Physical Therapy Diagnosis: B PFitis Rehabilitation Potential: Good - Anticipated Interventions Patient/Client Instruction: Educate patient on: Condition, Plan of Care For the Purpose of:: To decrease pain, To decrease swelling/inflammation, To increase ROM, To improve muscle performance and motor function Therapeutic Exercise to Include: Strength training, Flexibilty training, Passive ROM, Active ROM For the Purpose of:: To decrease pain, To increase ROM, To improve nutrient delivery to tissue Manual Therapy Techniques to Include: Mobilization, Passive ROM, Soft tissue mobilization For the Purpose of:: To decrease pain, To decrease swelling/inflammation, To increase ROM Ultrasound (thermal/non thermal): Yes - nonthermal For the Purpose of:: To decrease pain, To decrease swelling/inflammation Thank you for the opportunity to evaluate your patient. For Medicare and Medicare HMO plans, please review the plan of care and approve it. It will need to be FAXED BACK to us at [phone] for Medicare purposes. For Medicare only, by signing this I certify the plan of care. Please let me know if there are questions or concerns regarding this plan of care. Physician Signature: Date:
--- NOTE | 2022-07-17 16:00 | HP.PTEVAL2 ---
Patient's Visit Information HENRRY LARA is a 42 year old F referred to Physical Therapy by Dr. Bal Yuan DPM with a diagnosis of DDD. Date of Evaluation: 07/17/22 Physical Therapist: Zachery Pickard DPT, OCS, CSCS - Visit Plan Frequency: 2x /Week Duration: 2-4 Weeks Plan: 2x/week for 4 weeks for L/S ext adn mobs as needed. Activitiy modifciaiton from flexiona dn sitting too much, posture, body mechanics, eventual core strength to HEP - Subjective Subjective: Back pain chronic intermittently for years. Started hurting again about 3 weeks ago. Much worse 3 days ago for no apparent reason, was just sitting and playing video game and it got worse. Pain is in R side LB and into posterior R buttock. No leg symptoms, pain can go down R leg at times. Been sitting alot more since feet have been worse. Getting up from chair can be painful. Sleep is interrupted in that she gets painful and pain meds do not help. Takes ibuprofen. Dr. Milton knowsd about pain but no treatment. Back doctor is Dr. Stevens in [place], he does not know. Had MRI long time ago, mild DDD and mild stenosis. Regular ex : none. Not working due to foot pain, meijers. back keeps her from doing alot at home, hard to climb steps, hard to bend, Letting dogs out is even a chore. - Objective Objective: Avoids weight through R hip in sitting adn R leg in standing. Sacral sits nad flexes LB, flat lordosis in LB. . Unable to extend lumbar without increasing pain R LB, max deficits, flexion is OK but painful, R SB limited vs L. reflexes LE 2/3 patella and achilles. Sensation LE WNL to gross light touch. strength knees 4, hip , 4- and DF 4, no myotomal abnormalities. + R SLR and slump test. repeated ext improves ROM ext quickly, up from chair extended much better than from sacral sit. - Goals Goal 1:: Sleep without waking at night Goal Time Frame: 2-4 Weeks Goal 2:: Full lumbar AROM without evidence of pain Goal Time Frame: 2-4 Weeks Goal 3:: sit and stand symmetrically without back pain Goal Time Frame: 2-4 Weeks Goal 4:: I appropriate HEP to minimize future problems Goal Time Frame: 2-4 Weeks Goal 5:: Pain 1/10 at worst in LB Goal Time Frame: 2-4 Weeks - Rehabilitation Potential Physical Therapy Diagnosis: Likely discal pathology LB. Rehabilitation Potential: Fair - Anticipated Interventions Patient/Client Instruction: Educate patient on: Condition, Plan of Care For the Purpose of:: To decrease pain, To decrease swelling/inflammation, To improve nutrient delivery to tissue, To improve muscle performance and motor function, To increase tolerance to activity/condition/position Therapeutic Exercise to Include: Strength training, Flexibilty training, Passive ROM, Active ROM, Dynamic Lumbar Stabilization For the Purpose of:: To decrease pain, To increase ROM, To improve nutrient delivery to tissue, To improve muscle performance and motor function, To increase tolerance to activity/condition/position Manual Therapy Techniques to Include: Mobilization, Passive ROM, Soft tissue mobilization For the Purpose of:: To decrease pain, To increase ROM Thank you for the opportunity to evaluate your patient. For Medicare and Medicare HMO plans, please review the plan of care and approve it. It will need to be FAXED BACK to us at [phone] for Medicare purposes. For Medicare only, by signing this I certify the plan of care. Please let me know if there are questions or concerns regarding this plan of care. Physician Signature: Date:
--- NOTE | 2022-08-14 15:55 | HP.PTDCSUM_ITS ---
Discharge Summary D/C summary: It has been my pleasure to treat HENRRY LARA referred by Dr. Bal Yuan DPM, with the diagnosis of B PF itis for a total of 13 visit(s). Discharge Date: 08/14/22 Please see the following information for a summary of their discharge status. Subjective Subjective: Back pain is gone for the most part. Certain chairs can start hurting right away. HEP at home : not alot. Does ex when she is hurting. And they help(extensions). Activities are normal. Very busy lately. Walking at festival. Had graduation constitution party. Pain B foot pain: Pain Intensity (Out of 10): 5 PAINTING: Pain Intensity (Out of 10): 0 Overall Improvement % Improvement: 100 Objective Objective/Function: Full back ROM without pain today, walking is limited by foot pain but not back. No time for more back exercise right now and will continue with current. Goals Goal 1:: Pt feel pain in feet is 75% better at 1/10 at worst Goal Progress: 100% Goal 2:: I managemnt of condition Goal Progress: Goal Met Goal 3:: Vaccuum and chores at home without increased pain Goal Progress: Goal Met Goal 4:: LEFS score 55 Goal Progress: Goal Met Goal 5:: Plan to return to work as able Goal Progress: feet hold back. Plan Plan: d/c D/C Information Discharge Comments: Back doing very well and moving great, will continue postural focus and ext ex at home and minimizing sitting. d/c sentence: If there are questions or concerns regarding this patient's physical therapy, please feel free to call me at [phone]. Thank you for the referral of this patient. Sincerely, Zachery Pickard, DPT, OCS, CSCS Balance/Gait/Functional tests Balance/Special Test Scores Oswestry Low Back Score: 6 Lower Extremity Functional Score: 53
--- NOTE | 2022-08-19 15:51 | HP.PTDCSUM ---
Discharge Summary D/C summary: It has been my pleasure to treat HENRRY LARA referred by Dr. Bal Yuan DPM, with the diagnosis of B PF itis for a total of 14 visit(s). Discharge Date: 08/19/22 Please see the following information for a summary of their discharge status. Subjective Subjective: To Dr 08/26. Still hurting in feet R>L...right at 5/10 on the heel and left is 3/10. Pain is pretty constant worse in am and then sometimes later in day. Worse with sitting too much or being onfeet. Ready for surgery if that is the next step, could not work right now. Had injections, tried night brace but hard to keep on, orthotics are in, can't take steroids, done home stretching and rolling out but did not help more than a tad bit. Pain B foot pain: Pain Intensity (Out of 10): 4 PAINTING: Pain Intensity (Out of 10): 0 Overall Improvement % Improvement: 30 Objective Objective/Function: Good ROM and strength in B feet adn ankles, DF still about 0 to 2 degrees AROM but others WNL. Tender B calcaneus R >L moderately. [facility]. Overall not improving as expected with this and will f/u with doctor for next step. Please note the last note on 08/14 was misdocumented under her foot chart but was meant for her back diagnoses. Goals Goal 1:: Pt feel pain in feet is 75% better at 1/10 at worst Goal Progress: Not Progressing Goal 2:: I managemnt of condition Goal Progress: Not Progressing Goal 3:: Vaccuum and chores at home without increased pain Goal Progress: Not Progressing Goal 4:: LEFS score 55 Goal Progress: Not Progressing Goal 5:: Plan to return to work as able Goal Progress: Not Progressing Plan Plan: d/c, back to doctor. D/C Information Discharge Comments: Feet not improving and will seek more certified genetic counselor from doctor. d/c sentence: If there are questions or concerns regarding this patient's physical therapy, please feel free to call me at [phone]. Thank you for the referral of this patient. Sincerely, Zachery Pickard, DPT, OCS, CSCS Balance/Gait/Functional tests Balance/Special Test Scores Oswestry Low Back Score: 6 Lower Extremity Functional Score: 31
--- NOTE | 2022-08-19 15:55 | HP.PTDCS(2) ---
Discharge Summary D/C Summary: It has been my pleasure to treat HENRRY LARA referred by Dr. Bal Yuan DPM, with the diagnosis of DDD for a total of 5 visit(s). Discharge Date: 08/19/22 Please see the following information for a summary of their discharge status. Subjective Subjective: Back pain is gone for the most part. Sitting in certain chairs acan hurt right away. Hep not doing alot at home. Does ex when she is hurting and they help Overall Improvement % Improvement: 100 Objective Objective/Function/Assessment: Full back AROM without pain that day. walking is limited due to foot pain but not back. No time for back ex right now and will continue with current. Goals Patient Goals: Improve Mobility and Decrease Pain Goal 1:: Sleep without waking at night Goal Progress: Goal Met Goal 2:: Full lumbar AROM without evidence of pain Goal Progress: Goal Met Goal 3:: sit and stand symmetrically without back pain Goal Progress: Goal Met Goal 4:: I appropriate HEP to minimize future problems Goal Progress: Goal Met Goal 5:: Pain 1/10 at worst in LB Goal Progress: Goal Met Plan Plan: d/c D/C Information d/c sentence: If there are questions or concerns regarding this patient's physical therapy, please feel free to call me at [phone]. Thank you for the referral of this patient. Sincerely, Zachery Pickard, DPT, OCS, CSCS
== END 2022-08-19 19:00 | disposition home or self-care (01) ==
LOC: PT 15:30
PROVIDERS: PCP Family Medicine; Referring Provider Podiatrist; Visit Provider Podiatrist
DX: M51.36 Other intervertebral disc degeneration, lumbar region (principal)
CPT/HCPCS: 97035; 97110; 97140; 97161; 97164; 97530

== ENCOUNTER 2022-10-23 12:23 | Day surgery (SDC) | payer MEDICAID, SELFPAY ==
[2022-10-23] VITALS (7 sets, daily range): BP systolic 108–128; BP diastolic 71–86; PULSE 72–88; RESP 16; TEMP 36.2–37.1; O2SAT 93–100; BMI 28.8
[2022-10-23] MEDS: Lactated Ringers 1,000 ML 15 ML IV (12:30)
[2022-10-23 12:46] LABS: Internal QC Validated? YES +Cl - CLEAR BKGD; Pregnancy, Urine Negative Negative
[2022-10-23] MEDS: Cefazolin 2 GM in 0.9% Normal Saline 100 ML IV (15:30)
[2022-10-23] MEDS: Bupivacaine Mpf 0.5% 30 ML VIAL ×2 (15:51→16:09)
[2022-10-23] MEDS: BACITRACIN/POLYMYXIN B 15 GM Tube 1 APPLIC (16:08)
--- NOTE | 2022-10-23 16:23 | PCM.OPRPT ---
Problems Associated Problem List Diagnoses (1) Plantar fascial fibromatosis: Report of Operation Date of Procedure: 10/23/22 Pre-Operative Diagnosis: 1) Plantar Fasciitis, Right Side Post-Operative Diagnosis: Same Surgery/Procedure Performed:: 1) Endoscopic plantar fasciotomy, Right Foot Description of Surgical Findings:: Adequate visualization of plantar fascial resection noted with 2/3 of the central band released, leaving the lateral 1/3 intact Surgeon: Bal Yuan Type of Anesthesia: General Special Medications: 40cc 0.5% marcaine plain Specimen's removed: none Drains: none Estimated Blood Loss (mL): minimal Description of Procedure: Patient brought back to the room placed comfortably in supine position on the operating room table. Patient induced under MAC anesthesia. Right lower extremity position back on a external rotation with hip bump. Well-padded right thigh tourniquet applied. Right lower extremity scrubbed prepped draped using typical aseptic fashion. Once cleared by anesthesia 30 cc ankle block was performed using ring ankle block technique using standard technique. Next the medial calcaneal tubercle was palpated and a small stab incision was drawn just distal to this approximately 1 cm. Curved week's keto hemostats were used to palpate the central band medially once this was identified the incision was deepened with the hemostats any bleeders were cauterized neurovascular structures were identified and protected. The probe or trocar was passed from medial to lateral along the plantar surface of the central band of the plantar fascia. The probe was ultimately poking out the lateral side of the foot a small stab incision with a 15 blade was made to allow for traversing the central band of the plantar fascia. Cannula was placed over the trocar. Multiple Q-tips were passed through to clear out any subcutaneous fat. Scope was inserted laterally the central band of the plantar fascia was identified a hook blade was inserted medially and the medial two thirds of the central band of the plantar fascia was released down to the flexor digitorum brevis muscle without any violation or injury to the deep underlying muscle belly or neurovascular structures. Multiple pictures taken of the resection. Site was flushed with copious amounts of normal sterile saline and all equipment was removed. Sites closed with 2 horizontal mattress sutures using 3-0 Prolene to the medial and lateral stab incision sites. Additional 10 cc of half percent Marcaine plain were injected to the sugar-incisional sites for additional local anesthesia. Dressed with bacitracin Adaptic 4 x 4's Kerlix well-padded Thomas compression AO splint. Patient tolerated anesthesia procedure well apparent satisfactory condition. Patient transferred to PACU vital signs stable vascular status intact all digits for further monitoring prior to discharge. Patient will follow-up in 1 week and maintain nonweightbearing status for the next 2 weeks until incisional closure. No complications, no pathologic specimens Adequate resection of plantar fascia. Admit VTE Documentation VTE Present on Admission: Yes VTE Pharm Prophylaxis ordered?: Yes
== END 2022-10-23 17:44 | disposition home or self-care (01) ==
LOC: SDC 12:24 → AC 12:26
PROVIDERS: Anesthesiology; PCP Family Medicine; Referring Provider Podiatrist; Visit Provider Podiatrist
PROC: (CPT 29893; principal; 2022-10-23 13:45)
DX: M72.2 Plantar fascial fibromatosis (principal); F31.9 Bipolar disorder, unspecified; E78.00 Pure hypercholesterolemia, unspecified; K21.9 Gastro-esophageal reflux disease without esophagitis; F17.210 Nicotine dependence, cigarettes, uncomplicated; Z79.82 Long term (current) use of aspirin; Z79.899 Other long term (current) drug therapy
CPT/HCPCS: 29893; 81025; J7120; J2405

== ENCOUNTER 2023-01-05 13:00 | Outpatient (RCR) | payer MEDICAID, SELFPAY ==
--- NOTE | 2022-11-17 14:10 | HP.PTEVAL_ITS ---
Patient's Visit Information Visit Information Visit Information: HENRRY LARA is a 42 year old F referred to Physical Therapy by Dr. Bal Yuan, DPKj with a diagnosis of PLANTAR FASCIAL FIBROMATOSIS. Date of Evaluation: 11/16/22 Physical Therapist: Anurag Ruffin, PT, Cert MDT, OCS Visit Plan Frequency: 2x /Week Duration: 6 Weeks Plan: s/p Endoscopic plantar fasciotomy CAM boot with walking PT INTERVTIONS MANUAL THERAPY STM/HAWK/STICK CALF/PLANTAR FASCIA, FLEXABILITY G- S/PF ,US /CP ,GAIT TRAINING ABLE AND STRENGTH FOOT /ANKLE Subjective Subjective: This 42 y/o female presents to physical therapy with right plantar fascial fibromatosis . patient underwent s/p endoscopic plantar fascia fasciotomy on 10/23/[address] Yuan at [facility] .Patient NWB RLE with kneeling scooter and crutches `2weeks with soft cast ,then 2 nd week with CAM boot. Seen DR 11/06/22 WBAT no crutches with CAM boot. This patient had plantar fascia pain for ~ 6 month . Patient tried orthotics and PT prior PT and injections. Patient has min pain but increase with walking. Aggravating factors walking/standing affects ADLS .Alleviating factors rest. C/O paresthesia/tingling heel. Patient sleeping okay. Patient pain affects QOL and function. Patient goals to walk normal. Patient had MRI prior to surgery and RTD 11/24/22 SOCIAL: single VOCATION: unemployed Pain Right Foot: Pain Intensity (Out of 10): 3 Pain Intensity Range: 10 Objective Objective: POSTURE: ( frontal plane mechanics) pes Cavus NEURO: c/o paresthesia/tingling heel light touch intact GAIT: ambulates with decrease stance time RLE with CAM boot AROM: dorsiflexion 5 degrees from 0 , plantar flexion 65 degrees ,inversion 35 degrees ,eversion 5 degrees MMT: 4/5 anterior tibialis/ peroneus/posterior tibialis 4/5 , ( peak force ) G-S 12.8 SKIN: incision well approximate sutures removed G-S FLEXABLITY: mod tight Balance/Special Test Scores Lower Extremity Functional Score: 27 Goals Goal 1:: Patient to be I with HEP for foot Goal Time Frame: 4-6 Weeks Goal 2:: Patient to improve AROM ankle DF by 5 degrees to improve gait Goal Time Frame: 4-6 Weeks Goal 3:: Patient to improve peak force G-S by 10# of force to improve gait Goal Time Frame: 4-6 Weeks Goal 4:: Patient to demonstrate 75% improvement with decrease PF pain and improve function. Goal Time Frame: 4-6 Weeks Goal 5:: Patient to improve LFES score by 5 points or > to improve function and QOL Goal Time Frame: 4-6 Weeks Goal 6:: Patient to normalize gait no pain Goal Time Frame: 4-6 Weeks Rehabilitation Potential Physical Therapy Diagnosis: This patient s/p endoscopic plantar fasciotomy with decrease gait currently with boot , ROM loss ,weakness and pain surgery thus will benefit from skilled PT to improve gait and function and decrease pain Rehabilitation Potential: Good Anticipated Interventions Patient/Client Instruction: Educate patient on: Condition and Plan of Care For the Purpose of:: To decrease pain, To increase ROM, To improve muscle performance and motor function, To improve ability to perform ADL's, To increase tolerance to activity/condition/position, To improve ability of physical actions for home/community/work/leisure, To improve health of tissue, To decrease soft tissue restriction, To increase flexibility/ROM, To improve endurance and To prevent re-injury Therapeutic Exercise to Include: Strength training, Endurance training, Balance training, Flexibilty training and Active ROM Comment: FOOT G-S/ANKLE/INTRINSICS For the Purpose of:: To decrease pain, To increase ROM, To improve nutrient delivery to tissue, To increase oxygenation perfusion, To improve muscle performance and motor function, To improve ability of physical actions for home/community/work/leisure, To improve gait and locomotor functions, To improve health of tissue, To decrease soft tissue restriction, To increase flexibility/ROM and To improve endurance Manual Therapy Techniques to Include: Mobilization and Passive ROM Comment: PLANTAR FASCIA /GS HAWK /STICK For the Purpose of:: To decrease pain, To increase ROM, To improve nutrient delivery to tissue, To increase oxygenation perfusion, To improve health of tissue, To decrease soft tissue restriction and To increase flexibility/ROM Cryotherapy (ice pack, ice massage): Yes Thermo therapy (hot pack): Yes Ultrasound (thermal/non thermal): Yes For the Purpose of:: To decrease pain, To decrease swelling/inflammation, To improve nutrient delivery to tissue, To increase oxygenation perfusion, To improve health of tissue and To decrease soft tissue restriction Text: Thank you for the opportunity to evaluate your patient. For Medicare and Medicare HMO plans, please review the plan of care and approve it. It will need to be FAXED BACK to us at [phone] for Medicare purposes. For Medicare only, by signing this I certify the plan of care. Please let me know if there are questions or concerns regarding this plan of care. Physician Signature: Date:
--- NOTE | 2023-01-05 13:28 | HP.PTDCSUM ---
Discharge Summary D/C summary: It has been my pleasure to treat HENRRY LARA referred by Dr. Bal Yuan DPM, with the diagnosis of PLANTAR FASCIAL FIBROMATOSIS for a total of 7 visit(s). Discharge Date: 01/05/23 Please see the following information for a summary of their discharge status. Subjective Subjective: Doing great no pain Pain Right Foot: Pain Intensity (Out of 10): 0 Overall Improvement % Improvement: 80 Objective Objective/Function: GAIT: reciprocal pattern AROM: ANKLE WFL DF 10 DEGREES MMT: 5/5 ANKLE Goals Goal 1:: Patient to be I with HEP for foot Goal Progress: Goal Met Goal 2:: Patient to improve AROM ankle DF by 5 degrees to improve gait Goal Progress: Goal Met Goal 3:: Patient to improve peak force G-S by 10# of force to improve gait Goal Progress: Goal Met Goal 4:: Patient to demonstrate 75% improvement with decrease PF pain and improve function. Goal Progress: Goal Met Goal 5:: Patient to improve LFES score by 5 points or > to improve function and QOL Goal Progress: Goal Met Goal 6:: Patient to normalize gait no pain Goal Progress: Goal Met Plan Plan: D/C D/C Information d/c sentence: If there are questions or concerns regarding this patient's physical therapy, please feel free to call me at [phone]. Thank you for the referral of this patient. Sincerely, Anurag Ruffin, PT, Cert MDT, OCS Balance/Gait/Functional tests Balance/Special Test Scores Lower Extremity Functional Score: 70 Improvement % Improvement: 80
== END 2023-01-05 19:00 | disposition home or self-care (01) ==
LOC: PT 13:00
PROVIDERS: PCP Family Medicine; Visit Provider Podiatrist
DX: M72.2 Plantar fascial fibromatosis (principal)
CPT/HCPCS: 97110; 97112; 97124; 97140; 97162

== ENCOUNTER → 2023-04-28 | Outpatient (CLI) | payer MEDICAID, SELFPAY ==
--- NOTE | 2023-04-28 14:36 | RAD_ITS ---
STUDY: X-RAY - LUMBAR SPINE REASON FOR EXAM: Female, 43 years old. R20.2 TECHNIQUE: 4 view(s) of the lumbar spine were obtained. COMPARISON: None FINDINGS: Normal lumbar lordosis. There is no substantial scoliosis. There is a normal alignment of the vertebrae. Normal vertebral bodies and endplates. Normal disc space heights. The soft tissue structures are unremarkable. RAD/L/S Spine Min 4 Views IMPRESSION: No acute pathology of the lumbar spine. Electronically Signed: Ramon Galloway DO at 23:59 EDT ,
== END | disposition home or self-care (01) ==
LOC: RAD 14:31
PROVIDERS: PCP Family Medicine; Referring Provider Podiatrist; Visit Provider Podiatrist
DX: R20.2 Paresthesia of skin (principal)
CPT/HCPCS: 72110

== ENCOUNTER 2023-05-02 09:11 | Emergency (ER) | payer MEDICAID, SELFPAY ==
[2023-05-02 09:12] VITALS: BP 108/85; PULSE 104; RESP 16; TEMP 36.7; O2SAT 100; BMI 31.2
--- NOTE | 2023-05-02 09:33 | EX.ED.DYSGE1 ---
HPI History of Present Illness Chief Complaint: Other, Pain/Inj Detail of Chief Complaint: Right neck pain Informant: patient Narrative Narrative: Patient presents with right-sided neck pain that she noticed the middle of the night last night. Patient had a hard time falling back asleep. She gives me history of 3 weeks ago having the flu and the swollen lymph node on the right side. She was seen in urgent care at that time started on amoxicillin and the lymph node resolved. She secondarily then a week later had some swelling to the left side of her neck which she thought was another lymph node that resolved without any treatment. She developed 2 days ago with sore throat that then resolved after 24 hours. Now complaining of right-sided anterior neck pain. She denies fevers or chills or sweats. Denies any trauma. Denies sick contacts. [facility] Medical History (Updated 05/02/23 @ 12:[address] Yamila Butt, DO) Anxiety Arthritis Edentulous Encounter for screening for COVID-19 Gastric reflux High cholesterol History of cyst of breast History of edema History of stress test Shortness of breath on exertion Smoker Vertigo Home Medications cetirizine 10 mg tablet 10 mg PO DAILY 06/13/22 [History Last Taken 10/23/22] famotidine 10 mg tablet (Pepcid AC) 10 mg PO DAILY 06/13/22 [History Last Taken 10/23/22] fluoxetine 10 mg capsule 10 mg PO DAILY 05/02/23 [History Last Taken Unknown] fluoxetine 20 mg capsule 20 mg PO DAILY 05/02/23 [History Last Taken Unknown] hydroxyzine pamoate 25 mg capsule 25 mg PO TID 05/02/23 [History Last Taken Unknown] omeprazole 20 mg capsule,delayed release 20 mg PO DAILY 05/02/23 [History Last Taken Unknown] Allergy/AdvReac Type Severity Reaction Status Date / Time tioconazole [From Vagistat-1] Allergy Other Verified 05/02/23 09:12 Family History Other Angina at rest Bipolar 1 disorder Depression Heart disease Surgical History History of carpal tunnel release of both wrists History of decompression of ulnar nerve History of hernia surgery Social History Smoking Status: Current every day smoker tobacco type: cigarettes ROS ROS ED Review of Systems ROS Unobtainable: other Constitutional Constitutional ED: Reports lethargy; Denies chills, fever(s), sweats or weight loss Eyes Eyes: Denies blurry vision, change in vision or diplopia ENT ENT ED: Reports sore throat; Denies rhinorrhea Cardiovascular Cardiovascular: Denies chest pain, orthopnea or racing heartbeat Respiratory/Chest Respiratory/Chest: Reports dyspnea and dyspnea on exertion; Denies cough, orthopnea or sputum Gastrointestinal Gastrointestinal: Denies abdominal pain, diarrhea, nausea or vomiting Genitourinary Genitourinary ED: Denies dysuria, hematuria or urinary frequency Musculoskeletal Musculoskeletal: Reports neck pain; Denies arthralgias, back pain or myalgias Integumentary Denies abscess, Abrasions or rash Neurologic Neurologic: Denies headache(s) or weakness Psychiatric Psychiatric: Denies anxiety, depression or suicidal thoughts Endocrine Endocrinology: Denies polydipsia, polyphagia or polyuria Hematologic/Lymphatic Hematologic/Lymphatic: Denies easy bleeding, easy bruising or lymphadenopathy Allergic/Immunologic Allergic/Immunologic ED: Denies mouth swelling, tongue swelling or urticaria EXAM Physical Exam Const Vital Signs: 05/02/23 09:12 05/02/23 09:30 05/02/23 12:55 Temperature 98.1 F 95.2 F L Temperature Source Temporal Pulse Rate 104 H 71 Respiratory Rate 16 16 Respiratory Effort Normal Respiratory Pattern Normal Blood Pressure 108/85 H 110/74 Blood Pressure Mean 92 86 Pulse Ox 100 98 Oxygen Delivery Method Room Air Positive well nourished and well developed General Appearance ED: well developed and NAD HEENT Reports TM's clear and moist mucous membranes HEENT Narrative: Tenderness to the right sternocleidomastoid that seems to reproduce her pain. No significant adenopathy noted. Pharynx nonerythematous without exudates. Uvula midline without trismus. TMs are clear bilaterally. normocephalic and atraumatic; Negative for trauma or tenderness Tympanic Membrane ED: Yes TM's clear Eyes PERRL and EOMs intact bilaterally General Eye ED: Negative for pale conjunctiva or scleral icterus Neck no lymphadenopathy, supple and no JVD General: Negative for tenderness Chest Wall inspection of chest normal and palpation of chest normal Chest: Negative for tenderness Resp normal respiratory effort and clear to auscultation bilaterally Effort and Inspection: Negative for respiratory distress or pain with movement Auscultation: Negative for rhonchi, wheezes or diminished lung sounds Cardio regular rate, regular rhythm, S1 normal heart sound, S2 normal heart sound and no murmurs Peripheral Pulses: pulses 2+ throughout GI normal to inspection, nondistended, normoactive bowel sounds, soft to palpation, non-tender, non-distended and no masses Back/Spine no CVA tenderness and no thoracic nor lumbar tenderness Extremity normal to inspection General Extremety ED: Negative for edema General Extremity: Negative for edema Neuro oriented x3, CN's II-XII intact bilaterally, no sensory deficits noted and gait normal Sensorium / Orientation: awake, alert, oriented to person, oriented to place and oriented to time Motor Exam: strength 5/5 throughout and strength abnormal Psych mental status grossly normal Skin no rashes or lesions noted and no wounds MDM MDM MDM Narrative Medical decision making narrative: Patient presents with swollen lymph node and pain in the right side of her neck. IV line established. CBC with differential obtained showed a slightly elevated white count of 11.9 with hemoglobin 13.8 and platelet count of 365. Chemistries unremarkable. Monotest was negative. Patient had a strep screen that was negative. Patient had a CT scan of the neck with IV contrast that showed just some reactive lymphadenopathy bilaterally. At this point suspect possibility of adenitis likely of viral infection. Will refer to ENT for follow-up. She was on antibiotics 3 weeks ago on amoxicillin I do not feel any all antibiotics are indicated again. Patient clinically looks well. Lab Data Attestation: I reviewed the patient's lab results. Labs: Laboratory Results - last 24 hr 05/02/23 10:00 WBC 11.9 H RBC 4.72 Hgb 13.8 Hct 42.1 MCV 89.2 MCH 29.2 MCHC 32.8 RDW Std Deviation 44.1 H RDW Coeff of Lili 13.4 Plt Count 365 MPV 9.7 Immature Gran % (Auto) 0.200 Neut % (Auto) 62.9 Lymph % (Auto) 27.9 [place] % (Auto) 6.2 Eos % (Auto) 2.3 Baso % (Auto) 0.5 Absolute Neuts (auto) 7.5 Absolute Lymphs (auto) 3.31 Nucleated RBC % 0 Sodium 136 Potassium 4.0 Chloride 110 H Carbon Dioxide 24.0 Anion Gap 2 L BUN 14 Creatinine 0.61 Estim Creat Clear Calc 126.19 Est GFR (MDRD) Af Amer 138 Est GFR (MDRD) Non-Af 114 BUN/Creatinine Ratio 22.9 H Glucose 112 H Calcium 8.8 Monoscreen Negative Radiography Diagnostic Testing: Clinical Impression(s) from Imaging Studies Soft Tissue Neck CT 05/02/23 11:12 IMPRESSION: Reactive lymphadenopathy as described. Otherwise unremarkable CT neck. Electronically Signed: Errol Lucio MD at 12:38 EDT , Discharge Plan Triage Chief Complaint: Other, Pain/Inj ED Provider: Yamila Butt Dx/Rx/DC Orders Clinical Impression: Adenopathy, cervical Instructions: Lymphadenopathy Prescriptions: No Action cetirizine 10 mg tablet 10 mg PO DAILY Patient Comments: TAKE 1 TABLET BY MOUTH DAILY famotidine [Pepcid AC] 10 mg Tablet 10 mg PO DAILY omeprazole 20 mg capsule,delayed release(DR/EC) 20 mg PO DAILY fluoxetine 10 mg capsule 10 mg PO DAILY fluoxetine 20 mg capsule 20 mg PO DAILY hydroxyzine pamoate 25 mg capsule 25 mg PO TID Primary Care Provider: Wilver Milton Referrals: Arnoldo Jenkins MD [Med Staff - Active Staff] - 3-5 Days Wilver Milton MD [Primary Care Provider] - Disposition Disposition: Home, Self Care Discharge Date/Time: 05/02/23 12:57
--- OUTSIDE RECORDS SUMMARY | 2023-05-02 09:54 | XMS RPT_ITS | CCD ---
Author Name Unknown Address [id number] [place] [address] Organization [facility] Care Team Providers Care Buyer Renter Name Role Phone Natalya Griffith LPN Unavailable Unavailable Natalya Griffith LPN Unavailable Unavailable Yoan BURT, Wilver Escoto Primary Care Provider Wilver Jones MD Primary Care Provider Wilver Jones MD Primary Care Provider WILVER JONES Primary Care Unavailable PROVIDER, UNKNOWN Referring Unavailable PROVIDER, UNKNOWN Referring Unavailable WILVER JONES Primary Care Unavailable WILVER JONES Attending Unavailable WILVER JONES Primary Care Unavailable WILVER JONES Referring Unavailable WILVER JONES Primary Care Unavailable KATHERINE LOZANO Attending Unavailable WILVER JONES Primary Care Unavailable WILVER JONES Attending Unavailable WILVER JONES Primary Care Unavailable WILVER JONES Referring Unavailable WILVER JONES Primary Care Unavailable WILVER JONES Primary Care Unavailable IBRAHIMA LOPEZ Referring Unavailable IBRAHIMA LOPEZ Attending Unavailable WILVER JONES Primary Care Unavailable KLAUDIA CASTRO Attending Unavailable WILVER JONES Attending Unavailable WILVER JONES Primary Care Unavailable KATHERINE LOZANO Attending Unavailable WILVER JONES Primary Care Unavailable WILVER JONES Referring Unavailable WILVER JONES Primary Care Unavailable KLAUDIA CASTRO Attending Unavailable WILVER JONES Primary Care Unavailable MATTHEW KLAUDIA Referring Unavailable WILVER JONES Primary Care Unavailable YVAN GIRARD Attending Unavailable WILVER JONES Primary Care Unavailable KLAUDIA CASTRO Referring Unavailable WILVER JONES Referring Unavailable WILVER JONES Primary Care Unavailable WILVER JONES Primary Care Unavailable WILVER JONES Referring Unavailable WILVER JONES Primary Care Unavailable WILVER JONES Attending Unavailable WILVER JONES Primary Care Unavailable WILVER JONES Primary Care Unavailable WILVER JONES Referring Unavailable IBRAHIMA LOPEZ Attending Unavailable WILVER JONES Attending Unavailable WILVER JONES Primary Care Unavailable WILVER JONES Primary Care Unavailable WILVER JONES Referring Unavailable WILVER JONES Attending Unavailable WILVER JONES Primary Care Unavailable WILVER JONES Referring Unavailable WILVER JONES Primary Care Unavailable WILVER JONES Primary Care Unavailable SELF Referring Unavailable CLOVER ISLAS Attending Unavailable Allergies Allergy Classification Reported Allergen(s) Allergy Type Date of Onset Reaction(s) Facility (20 sources) tioconazole; Translations: [TIOCONAZOLE] Drug Allergy 01-30-2005 [facility] Work Phone: Medications Current Medications Medication Drug Class(es) Dates Sig (Normalized) Sig (Original) amoxicillin 875 mg oral tablet (1 source) Penicillin-class Antibacterial Start: 04-08-2023 End: 04-15-2023 take 1 tablet by mouth twice daily amoxicillin (AMOXIL) 875 mg tablet Take 1 tablet by mouth two times a day for 7 days. 14 tablet 0 04/08/2023 04/15/2023 Active Completed/Discontinued Medications Medication Drug Class(es) Dates Sig (Normalized) Sig (Original) OXYCODONE-ACETAMINO PHEN (5 sources) Opioid Agonist Start: 10-08-2016 PERCOCET 10-325 MG TABS take as directed OXYCODONE-ACETAMINOP [facility] [id number] Natalya Griffith LPN Problems Active Problems Problem Classification Problem Date Documented Da te Episodic/Chronic Allergic reactions (6 sources) Contact dermatitis; Translations: [Dermatographic urticaria] Onset: 7 10-08-2016 Episodic Anxiety disorders (20 sources) Generalized anxiety disorder; Translations: [Generalized anxiety disorder] Onset: 3 Chronic Disorders of lipid metabolism (20 sources) Mixed hyperlipidemia; Translations: [Mixed hyperlipidemia] Onset: 8 09-15-2017 Chronic Esophageal disorders (20 sources) Gastroesophageal reflux disease; Translations: [Gastro-esophageal reflux disease without esophagitis] Onset: 8 01-07-2018 Chronic Gastrointestinal hemorrhage (2 sources) Rectal hemorrhage; Translations: [Hemorrhage of anus and rectum] Onset: 4 12-26-2022 Episodic Genitourinary symptoms and ill-defined conditions (1 source) Dysuria; Translations: [Dysuria] Episodic Headache; including migraine (1 source) Menstrual migraine; Translations: [Menstrual migraine, not intractable, without status migrainosus] Chronic Menstrual disorders (3 sources) Dysmenorrhea; Translations: [Dysmenorrhea, unspecified] Onset: 3 Chronic Mood disorders (18 sources) Bipolar disorder; Translations: [Bipolar disorder, unspecified] Onset: 8 08-11-2017 Chronic Mycoses (1 source) Candidiasis; Translations: [Candidiasis, unspecified] Episodic Nonmalignant breast conditions (20 sources) Fibroadenosis of breast; 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] 11-23-2007 Chronic Nonmalignant breast conditions (1 source) Breast tenderness; Translations: [Mastodynia] 09-01-2022 Episodic Nutritional deficiencies (4 sources) Vitamin D deficiency; Translations: [Vitamin D deficiency, unspecified] Onset: 3 Chronic Other circulatory disease (1 source) Elevated blood-pressure reading without diagnosis of hypertension; Translations: [Elevated blood-pressure reading, without diagnosis of hypertension] Episodic Other connective tissue disease (1 source) Muscle pain; Translations: [Myalgia, unspecified site] Episodic Other connective tissue disease (2 sources) Plantar fasciitis; Translations: [Plantar fascial fibromatosis] Episodic Other connective tissue disease (2 sources) Pain in both feet; Translations: [Pain in right foot] 03-23-2023 Episodic Other connective tissue disease (1 source) Pain in right foot; Translations: [Foot pain, bilateral] Onset: 4 Episodic Other connective tissue disease (1 source) Pain in left foot; Translations: [Foot pain, bilateral] Onset: 4 Episodic Other ear and sense organ disorders (1 source) Tinnitus of right ear; Translations: [Tinnitus, right ear] Episodic Other ear and sense organ disorders (2 sources) Impacted cerumen of bilateral ears; Translations: [Impacted cerumen, bilateral] Episodic Other female genital disorders (1 source) Pruritus of vagina; Translations: [Other specified noninflammatory disorders of vagina] Episodic Other gastrointestinal disorders (1 source) Diarrhea; Translations: [Diarrhea, unspecified] 12-25-2022 Episodic Other gastrointestinal disorders (1 source) Diarrhea, unspecified; Translations: [Diarrhea, unspecified type] Onset: 4 Episodic Other inflammatory condition of skin (2 sources) Itching ; Translations: [Pruritus, unspecified] Episodic Other inflammatory condition of skin (1 source) Pruritus of skin; Translations: [Pruritus, unspecified] Episodic Other inflammatory condition of skin (1 source) Intertrigo; Translations: [Erythema intertrigo] 09-01-2022 Episodic Other nervous system disorders (20 sources) Carpal tunnel syndrome of left wrist; Translations: [Carpal tunnel syndrome, left upper limb] Onset: 8 12-21-2017 Chronic Other nervous system disorders (20 sources) Carpal tunnel syndrome of right wrist; Translations: [Carpal tunnel syndrome, right upper limb] Onset: 9 10-31-2018 Chronic Other nervous system disorders (20 sources) Ulnar neuropathy; Translations: [Lesion of ulnar nerve, right upper limb] Onset: 9 10-31-2018 Chronic Other nutritional; endocrine; and metabolic disorders (1 source) Hypercalcemia; Translations: [Hypercalcemia] Chronic Other nutritional; endocrine; and metabolic disorders (1 source) Hypercalcemia; Translations: [Hypercalcemia] Onset: 3 Chronic Other upper respiratory disease (1 source) Chronic rhinitis; Translations: [Chronic rhinitis] Chronic Other upper respiratory infections (1 source) Posterior rhinorrhea; Translations: [Postnasal drip] Episodic Otitis media and related conditions (2 sources) Disorder of left Eustachian tube; Translations: [Unspecified Eustachian tube disorder, left ear] Episodic Spondylosis; intervertebral disc disorders; other back problems (1 source) Acute low back pain; Translations: [Acute bilateral low back pain without sciatica] Episodic Unclassified (1 source) Acute bilateral low back pain without sciatica; Translations: [Acute bilateral low back pain without sciatica] Onset: 3 Past or Other Problems Problem Classification Problem Date Documented Date Episodic/Chronic Conditions associated with dizziness or vertigo (20 sources) Vertigo; Translations: [Dizziness and giddiness] Onset: 01-28-2022 Episodic Contraceptive and procreative management (2 sources) Intrauterine contraceptive device in situ; Translations: [Encounter for routine checking of intrauterine contraceptive device] Onset: 07-31-2022 09-01-2022 Episodic Diabetes mellitus without complication (2 sources) Hyperglycemia; Translations: [Hyperglycemia, unspecified] Onset: 06-23-2022 Episodic Immunizations and screening for infectious disease (3 sources) Viral screening status; Translations: [Encounter for screening for other viral diseases] Onset: 01-13-2023 01-13-2023 Episodic Nonspecific chest pain (3 sources) Chest pain; Translations: [Other chest pain] Onset: 06-26-2022 Episodic Other connective tissue disease (1 source) Plantar fascial fibromatosis; Translations: [Plantar fasciitis] Onset: 10-12-2022 Episodic Other connective tissue disease (1 source) Myalgia, unspecified site; Translations: [Myalgias] Onset: 05-29-2022 Episodic Other non-traumatic joint disorders (20 sources) Pain in left knee; Translations: [Pain in joint, lower leg] Onset: 01-18-2017 01-18-2017 Episodic Other screening for suspected conditions (not mental disorders or infectious disease) (13 sources) Patient encounter status; Translations: [Encounter for screening mammogram for malignant neoplasm of breast] Onset: 07-15-2022 Episodic Other skin disorders (20 sources) Sebaceous cyst of skin; Translations: [Sebaceous cyst] Onset: 12-01-2007 12-01-2007 Episodic Results Test Name Value Interpretation Reference Range Facil ity Vital Signs Date Time Vital Sign Value Performing Clinician Facility 04-08-2023 16:28-0500 Body temperature 96.91 [degF] Arnoldo Amato MD Work Phone: [facility] 04-08-2023 16:28-0500 Body weight 79.29 kg Arnoldo Amato MD Work Phone: [facility] 04-08-2023 16:28-0500 Diastolic blood pressure 70 mm[Hg] Arnoldo Amato MD Work Phone: [facility] 04-08-2023 16:28-0500 Heart rate 106 /min Arnoldo Amato MD Work Phone: [facility] 04-08-2023 16:28-0500 Respiratory rate 16 /min Arnoldo Amtao MD Work Phone: [facility] 04-08-2023 16:28-0500 SaO2% (BldA) [Mass fraction] 98 % Arnoldo Amato MD Work Phone: [facility] 04-08-2023 16:28-0500 Systolic blood pressure 102 mm[Hg] Arnoldo Amato MD Work Phone: [facility] 03-23-2023 16:07-0500 Body weight 80.74 kg Clover Suppan LABORER [employer].PACK OPERATOR Work Phone: [facility] 03-23-2023 16:07-0500 Diastolic blood pressure 62 mm[Hg] Clover Suppan LABORER [employer].PACK OPERATOR Work Phone: [facility] 03-23-2023 16:07-0500 Heart rate 103 /min Clover Suppan LABORER [employer].PACK OPERATOR Work Phone: [facility] 03-23-2023 16:07-0500 Respiratory rate 16 /min Clover Suppan LABORER [employer]ING.PACK OPERATOR Work Phone: [facility] 03-23-2023 16:07-0500 SaO2% (BldA) [Mass fraction] 99 % Clover Suppan LABORER [employer].PACK OPERATOR Work Phone: [facility] 03-23-2023 16:07-0500 Systolic blood pressure 120 mm[Hg] Clover Suppan LABORER [employer]ING.PACK OPERATOR Work Phone: [facility] 01-13-2023 09:27-0500 Body weight 78.47 kg Wilver Jones MD Work Phone: [facility] 01-13-2023 09:27-0500 Diastolic blood pressure 82 mm[Hg] Wilver Jones MD Work Phone: [facility] 01-13-2023 09:27-0500 Heart rate 114 /min Wilver Jones MD Work Phone: [facility] 01-13-2023 09:27-0500 SaO2% (BldA) [Mass fraction] 96 % Wilver Jones MD Work Phone: [facility] 01-13-2023 09:27-0500 Systolic blood pressure 132 mm[Hg] Wilver Jones MD Work Phone: [facility] 12-25-2022 15:44-0500 Body temperature 97.3 [degF] Ibrahima Lopez MD Work Phone: [facility] 12-25-2022 15:44-0500 Body weight 78.02 kg Ibrahima Lopez MD Work Phone: [facility] 12-25-2022 15:44-0500 Diastolic blood pressure 70 mm[Hg] Ibrahima Lopez MD Work Phone: [facility] 12-25-2022 15:44-0500 Heart rate 97 /min Ibrahima Lopez MD Work Phone: [facility] 12-25-2022 15:44-0500 Respiratory rate 16 /min Ibrahima Lopez MD Work Phone: [facility] 12-25-2022 15:44-0500 SaO2% (BldA) [Mass fraction] 96 % Ibrahima Lopez MD Work Phone: [facility] 12-25-2022 15:44-0500 Systolic blood pressure 128 mm[Hg] Ibrahima Lopez MD Work Phone: [facility] 11-03-2022 14:00-0400 Diastolic blood pressure 78 mm[Hg] Wilver Jones MD Work Phone: [facility] 11-03-2022 14:00-0400 Heart rate 87 /min Wilver Jones MD Work Phone: [facility] 11-03-2022 14:00-0400 Respiratory rate 16 /min Wilver Jones MD Work Phone: [facility] 11-03-2022 14:00-0400 SaO2% (BldA) [Mass fraction] 99 % Wilver Jones MD Work Phone: [facility] 11-03-2022 14:00-0400 Systolic blood pressure 118 mm[Hg] Wilver Jones MD Work Phone: [facility] 10-12-2022 17:00-0400 Body weight 76.2 kg Katherine Lozano LABORER [employer].IN FLIGHT 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 Work Phone: [facility] 10-12-2022 17:00-0400 Diastolic blood pressure 76 mm[Hg] Katherine Haagen LABORER [employer].IN FLIGHT 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 Work Phone: [facility] 10-12-2022 17:00-0400 Heart rate 105 /min Katherine Lozano LABORER [employer]ING.IN FLIGHT 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 Work Phone: [facility] 10-12-2022 17:00-0400 Respiratory rate 16 /min Katherine Lozano LABORER [employer]ING.IN FLIGHT 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 Work Phone: [facility] 10-12-2022 17:00-0400 SaO2% (BldA) [Mass fraction] 97 % Katherine Lozano LABORER [employer]ING.IN FLIGHT 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 Work Phone: [facility] 10-12-2022 17:00-0400 Systolic blood pressure 108 mm[Hg] Katherine Lozano LABORER [employer]ING.IN FLIGHT 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 Work Phone: [facility] 09-01-2022 11:31-0400 Body weight 76.39 kg Klaudia Castro LABORER [employer]ING.IN FLIGHT 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 Work Phone: [facility] 09-01-2022 11:31-0400 Diastolic blood pressure 74 mm[Hg] Klaudia Castro LABORER [employer]ING.IN FLIGHT 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 Work Phone: [facility] 09-01-2022 11:31-0400 Systolic blood pressure 120 mm[Hg] Klaudia Castro LABORER [employer]ING.IN FLIGHT 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 Work Phone: [facility] 07-15-2022 15:01-0400 Body height 162.6 cm Klaudia Castro APRN.IN FLIGHT 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 Work Phone: [facility] 07-15-2022 15:01-0400 Body weight 74.84 kg Klaudia Castro LABORER [employer]ING.IN FLIGHT 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 Work Phone: [facility] 07-15-2022 15:01-0400 Diastolic blood pressure 80 mm[Hg] Klaudia Castro LABORER [employer]ING.IN FLIGHT 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 Work Phone: [facility] 07-15-2022 15:01-0400 Systolic blood pressure 118 mm[Hg] Klaudia Castro LABORER [employer]ING.IN FLIGHT 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 Work Phone: [facility] 06-26-2022 13:06-0400 Diastolic blood pressure 72 mm[Hg] Katherine Haagen LABORER [employer]ING.IN FLIGHT 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 Work Phone: [facility] 06-26-2022 13:06-0400 Heart rate 102 /min Katherine Haagen LABORER [employer]ESSING.IN FLIGHT 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 Work Phone: [facility] 06-26-2022 13:06-0400 Respiratory rate 18 /min Katherine Haagen LABORER [employer]ESSING.IN FLIGHT 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 Work Phone: [facility] 06-26-2022 13:06-0400 SaO2% (BldA) [Mass fraction] 96 % Katherine Lozano LABORER [employer]ING.IN FLIGHT 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 Work Phone: [facility] 06-26-2022 13:06-0400 Systolic blood pressure 110 mm[Hg] Katherine Haagen LABORER [employer]ING.IN FLIGHT 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 Work Phone: [facility] 05-28-2022 16:27-0400 Body height 162.6 cm Wilver Jones MD Work Phone: [facility] 05-28-2022 16:27-0400 Body weight 77.11 kg Wilver Jones MD Work Phone: [facility] 05-28-2022 16:27-0400 Diastolic blood pressure 94 mm[Hg] Wilver Jones MD Work Phone: [facility] 05-28-2022 16:27-0400 Heart rate 100 /min Wilver Jones MD Work Phone: [facility] 05-28-2022 16:27-0400 SaO2% (BldA) [Mass fraction] 99 % Wilver Jones MD Work Phone: [facility] 05-28-2022 16:27-0400 Systolic blood pressure 164 mm[Hg] Wilver Jones MD Work Phone: [facility] 05-16-2022 14:45-0400 Body temperature 96.8 [degF] Jennifer Saldivar LABORER [employer]ING.IN FLIGHT 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 Work Phone: [facility] 05-16-2022 14:45-0400 Body weight 78.02 kg Jennifer Saldivar LABORER [employer]ING.IN FLIGHT 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 Work Phone: [facility] 05-16-2022 14:45-0400 Diastolic blood pressure 82 mm[Hg] Jennifer Saldivar LABORER [employer]ING.IN FLIGHT 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 Work Phone: [facility] 05-16-2022 14:45-0400 Heart rate 102 /min Jennifer Saldivar LABORER [employer]ESSING.IN FLIGHT 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 Work Phone: [facility] 05-16-2022 14:45-0400 Respiratory rate 18 /min Jennifer Saldivar LABORER [employer]ESSING.IN FLIGHT 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 Work Phone: [facility] 05-16-2022 14:45-0400 SaO2% (BldA) [Mass fraction] 98 % Jennifer Saldivar LABORER [employer]ING.IN FLIGHT 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 Work Phone: [facility] 05-16-2022 14:45-0400 Systolic blood pressure 132 mm[Hg] Ejnnifer Saldivar LABORER [employer]ESSING.IN FLIGHT 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 Work Phone: [facility] 04-07-2022 14:03-0500 Body height 162.6 cm Yarely Dawkins MD Work Phone: [facility] 04-07-2022 14:03-0500 Body weight 77.56 kg Yarely Dawkins MD Work Phone: [facility] 04-07-2022 14:03-0500 Diastolic blood pressure 74 mm[Hg] Yarely Dawkins MD Work Phone: [facility] 04-07-2022 14:03-0500 Heart rate 96 /min Yarely Dawkins MD Work Phone: [facility] 04-07-2022 14:03-0500 SaO2% (BldA) [Mass fraction] 97 % Yarely Dawkins MD Work Phone: [facility] 04-07-2022 14:03-0500 Systolic blood pressure 103 mm[Hg] Yarely Dawkins MD Work Phone: [facility] 04-01-2022 13:16-0500 Diastolic blood pressure 90 mm[Hg] Katherine Haagen LABORER [employer]ING.IN FLIGHT 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 Work Phone: [facility] 04-01-2022 13:16-0500 Heart rate 102 /min Katherine Haagen LABORER [employer]ESSING.IN FLIGHT 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 Work Phone: [facility] 04-01-2022 13:16-0500 Respiratory rate 18 /min Katherine Haagen LABORER [employer]ESSING.IN FLIGHT 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 Work Phone: [facility] 04-01-2022 13:16-0500 SaO2% (BldA) [Mass fraction] 97 % Katherine Haagen LABORER [employer]ESSING.IN FLIGHT 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 Work Phone: [facility] 04-01-2022 13:16-0500 Systolic blood pressure 124 mm[Hg] Katherine Haagen LABORER [employer]ING.IN FLIGHT 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 Work Phone: [facility] 02-04-2022 09:39-0500 Heart rate 78 /min Wilver Jones MD Work Phone: [facility] 02-04-2022 09:24-0500 Body height 162.6 cm Wilver Jones MD Work Phone: [facility] 02-04-2022 09:24-0500 Body weight 76.2 kg Wilver Jones MD Work Phone: [facility] 02-04-2022 09:24-0500 Diastolic blood pressure 70 mm[Hg] Wilver Jones MD Work Phone: [facility] 02-04-2022 09:24-0500 SaO2% (BldA) [Mass fraction] 98 % Wilver Jones MD Work Phone: [facility] 02-04-2022 09:24-0500 Systolic blood pressure 110 mm[Hg] Wilver Jones MD Work Phone: [facility] 01-23-2022 11:45-0500 Body weight 76.2 kg NA Edwards PA-C Work Phone: [facility] 01-23-2022 11:45-0500 Diastolic blood pressure 62 mm[Hg] NA Edwards PA-C Work Phone: [facility] 01-23-2022 11:45-0500 Heart rate 102 /min NA Edwards PA-C Work Phone: [facility] 01-23-2022 11:45-0500 Respiratory rate 16 /min NA Edwards PA-C Work Phone: [facility] 01-23-2022 11:45-0500 SaO2% (BldA) [Mass fraction] 98 % NA Edwards PA-C Work Phone: [facility] 01-23-2022 11:45-0500 Systolic blood pressure 124 mm[Hg] NA Edwards PA-C Work Phone: [facility] 01-09-2022 16:01-0500 Body height 162.6 cm Wilver Jones MD Work Phone: [facility] 01-09-2022 16:01-0500 Body weight 77.84 kg Wilver Jones MD Work Phone: [facility] 01-09-2022 16:01-0500 Diastolic blood pressure 68 mm[Hg] Wilver Jones MD Work Phone: [facility] 01-09-2022 16:01-0500 Heart rate 89 /min Wilver Jones MD Work Phone: [facility] 01-09-2022 16:01-0500 SaO2% (BldA) [Mass fraction] 97 % Wilver Jones MD Work Phone: [facility] 01-09-2022 16:01-0500 Systolic blood pressure 118 mm[Hg] Wilver Jones MD Work Phone: [facility] 09-29-2021 13:34-0400 Diastolic blood pressure 82 mm[Hg] Katherine Lozano LABORER [employer]ING.IN FLIGHT 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 Work Phone: [facility] 09-29-2021 13:34-0400 Heart rate 113 /min Katherine Lozano LABORER [employer]ESSING.IN FLIGHT 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 Work Phone: [facility] 09-29-2021 13:34-0400 Respiratory rate 18 /min Katherine Haagen LABORER [employer]ESSING.IN FLIGHT 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 Work Phone: [facility] 09-29-2021 13:34-0400 SaO2% (BldA) [Mass fraction] 97 % Katherine Habernard LABORER [employer]ING.IN FLIGHT 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 Work Phone: [facility] 09-29-2021 13:34-0400 Systolic blood pressure 118 mm[Hg] Katherine Habernard LABORER [employer]ESSING.IN FLIGHT 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 Work Phone: [facility] 08-20-2021 10:45-0400 Body weight 76.2 kg Katherine Lozano LABORER [employer]ESSING.IN FLIGHT 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 Work Phone: [facility] 08-20-2021 10:45-0400 Diastolic blood pressure 70 mm[Hg] Katherine Haagen LABORER [employer]ESSING.IN FLIGHT 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 Work Phone: [facility] 08-20-2021 10:45-0400 Heart rate 104 /min Katherine Haagen LABORER SHE[employer] PROCESSING.IN FLIGHT 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 Work Phone: [facility] 08-20-2021 10:45-0400 Respiratory rate 18 /min Katherine Haagen LABORER [employer]ESSING.IN FLIGHT 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 Work Phone: [facility] 08-20-2021 10:45-0400 SaO2% (BldA) [Mass fraction] 99 % Katherine Lozano LABORER [employer]ESSING.IN FLIGHT 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 Work Phone: [facility] 08-20-2021 10:45-0400 Systolic blood pressure 100 mm[Hg] Katherine Habernard LABORER [employer] PROCESSING.IN FLIGHT 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 Work Phone: [facility] [facility] 10-08-2016 12:05-0400 BMI (Body Mass Index) 29.62 kg/m2 Natalya Griffith LPN [facility] Now [facility] Work Phone: 10-08-2016 12:05-0400 Body Temperature 99 [degF] Natalya Griffith LPN [facility] Now [facility] Work Phone: 10-08-2016 12:05-0400 BP Diastolic 64 mm[Hg] Natalya Griffith LPN [facility] Work Phone: 10-08-2016 12:05-0400 BP Systolic 124 mm[Hg] Natalya Griffith LPN [facility] Work Phone: 10-08-2016 12:05-0400 Height 162.56 cm Natalya Griffith LPN [facility] Work Phone: 10-08-2016 12:05-0400 Pulse (Heart Rate) 102 /min Natalya Griffith SUPERVISORY CBP OFFICER [facility] Work Phone: 10-08-2016 12:05-0400 Respiratory Rate 12 /min Natalya Griffith SUPERVISORY CBP OFFICER [facility] Work Phone: 10-08-2016 12:05-0400 Weight 78.29 kg Natalya Griffith SUPERVISORY CBP OFFICER [facility] Work Phone: Encounters Encounter Date Encounter Type Care Provider Facility Start: 04-08-2023 End: 04-08-2023 ambulatory WILVER JONES Facility:[facility] Start: 04-08-2023 End: 04-08-2023 Patient encounter procedure Arnoldo Amato MD Work Phone: [facility] Care Procedures Date Procedure Procedure Detail Performing Clinician Start: 03-02-2023 Colonoscopy Clover Islas LABORER [employer]LL[employer] PROCESSING.PACK OPERATOR Work Phone: Start: 10-13-2022 Us breast uni real t kamron with image limited Wilver Jones MD Work Phone: Start: 10-13-2022 Mammography Wilver Nuñez MD Work Phone: Start: 07-27-2022 Us transvaginal Klaudia grimaldo LABORER SHELLF[employer] PROCESSING.IN FLIGHT 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 Work Phone: Start: 07-22-2022 Non-HEU TC-99M add-on/dose Katherine Lozano LABORER [employer]LLF[employer] PROCESSING.IN FLIGHT 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 Work Phone: Start: 07-15-2022 End: 07-15-2022 Mammography Wilver Jones MD Work Phone: Start: 05-16-2022 Urnls dip stick/tabl et rgnt auto w/o microscopy Jennifer Saldivar LABORER SHELLFISH PROCESSING.IN FLIGHT 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 Work Phone: Start: 08-16-2020 Adult depression scr eening assessment Hugh Stevens PA-C Work Phone: Start: 10-08-2016 End: 10-08-2016 Kenalog per 10 mg Mart SKY Work Phone: Plan of Treatment Date Care Activity Detail Author Start: 03-02-2033 Screening for malign ant neoplasm of colon [facility] Start: 03-12-2030 Urine microalbumin profile DTa P,Tdap,Td Vaccine (10 - Td or Tdap) [facility] Start: 07-16-2027 HPV TESTING HPV TESTING [facility] Start: 07-16-2027 PAP TESTING PAP TESTING [facility] Start: 07-16-2027 Screening for malign ant neoplasm of cervix [facility] Start: 01-14-2024 Covid-19 Vaccine () Covid-19 Vaccine () [facility] Immunizations Immunization Date Immunization Notes Care Provider Fa allen 03-12-2020 tetanus toxoid, redu nj diphtheria toxoid, and acellular pertussis vaccine, adsorbed Wilver Jones MD Work Phone: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 10/26/2007 documented as of this encounter (statuses as of 08/27/2021) [facility] History of Past illness Narrative* Problem Noted Date Resolved Date Supervision of other high-risk (V23.89) 09/03/2007 10/26/2007 Abdominal pain, right upper quadrant 09/03/2007 10/26/2007 Abnormal findings on screening 008 10/26/2007 documented as of this encounter (statuses as of 09/29/2021) [facility] History of Past illness Narrative* Problem Noted Date Resolved Date Supervision of other high-risk (V23.89) 09/03/2007 10/26/2007 Abdominal pain, right upper quadrant 09/03/2007 10/26/2007 Abnormal findings on screening 2 008 10/26/2007 documented as of this encounter (statuses as of 01/09/2022) [facility] History of Past illness Narrative* Problem Noted Date Resolved Date Supervision of other high-risk (V23.89) 09/03/2007 10/26/2007 Abdominal pain, right upper quadrant 09/03/2007 10/26/2007 Abnormal findings on screening 008 10/26/2007 documented as of this encounter (statuses as of 01/23/2022) [facility] History of Past illness Narrative* Problem Noted Date Resolved Date Supervision of other high-risk (V23.89) 09/03/2007 10/26/2007 Abdominal pain, right upper quadrant 09/03/2007 10/26/2007 Abnormal findings on screening 2 008 10/26/2007 documented as of this encounter (statuses as of 01/28/2022) [facility] History of Past illness Narrative* Problem Noted Date Resolved Date Supervision of other high-risk (V23.89) 09/03/2007 10/26/2007 Abdominal pain, right upper quadrant 09/03/2007 10/26/2007 Abnormal findings on screening 008 10/26/2007 documented as of this encounter (statuses as of 01/29/2022) [address]19-2008 History of Past illness Narrative* Problem Noted Date Resolved Date Supervision of other high-risk (V23.89) 09/03/2007 10/26/2007 Abdominal pain, right upper quadrant 09/03/2007 10/26/2007 Abnormal findings on screening 008 10/26/2007 documented as of this encounter (statuses as of 02/04/2022) [address]19-2008 History of Past illness Narrative* Problem Noted Date Resolved Date Supervision of other high-risk (V23.89) 09/03/2007 10/26/2007 Abdominal pain, right upper quadrant 09/03/2007 10/26/2007 Abnormal findings on screening 008 10/26/2007 documented as of this encounter (statuses as of 03/26/2022) [address]19-2008 History of Past illness Narrative* Problem Noted Date Resolved Date Supervision of other high-risk (V23.89) 09/03/2007 10/26/2007 Abdominal pain, right upper quadrant 09/03/2007 10/26/2007 Abnormal findings on screening 008 10/26/2007 documented as of this encounter (statuses as of 03/29/2022) [address]19-2008 History of Past illness Narrative* Problem Noted Date Resolved Date Supervision of other high-risk (V23.89) 09/03/2007 10/26/2007 Abdominal pain, right upper quadrant 09/03/2007 10/26/2007 Abnormal findings on screening 2 008 10/26/2007 documented as of this encounter (statuses as of 04/03/2022) [address]19-2008 History of Past illness Narrative* Problem Noted Date Resolved Date Supervision of other high-risk (V23.89) 09/03/2007 10/26/2007 Abdominal pain, right upper quadrant 09/03/2007 10/26/2007 Abnormal findings on screening 2 008 10/26/2007 documented as of this encounter (statuses as of 04/06/2022) [address]19-2008 History of Past illness Narrative* Problem Noted Date Resolved Date Supervision of other high-risk (V23.89) 09/03/2007 10/26/2007 Abdominal pain, right upper quadrant 09/03/2007 10/26/2007 Abnormal findings on screening 008 10/26/2007 documented as of this encounter (statuses as of 04/09/2022) [address]19-2008 History of Past illness Narrative* Problem Noted Date Resolved Date Supervision of other high-risk (V23.89) 09/03/2007 10/26/2007 Abdominal pain, right upper quadrant 09/03/2007 10/26/2007 Abnormal findings on screening 008 10/26/2007 documented as of this encounter (statuses as of 04/17/2022) [address]19-2008 History of Past illness Narrative* Problem Noted Date Resolved Date Supervision of other high-risk (V23.89) 09/03/2007 10/26/2007 Abdominal pain, right upper quadrant 09/03/2007 10/26/2007 Abnormal findings on screening 008 10/26/2007 documented as of this encounter (statuses as of 05/16/2022) [address]19-2008 History of Past illness Narrative* Problem Noted Date Resolved Date Supervision of other high-risk (V23.89) 09/03/2007 10/26/2007 Abdominal pain, right upper quadrant 09/03/2007 10/26/2007 Abnormal findings on screening 008 10/26/2007 documented as of this encounter (statuses as of 05/19/2022) [facility] ENRIKE (generalized anxiety disorder)- Primary [facility]ized [facility] Dermatographic urticaria- Primary [facility]* Diagnosis Vertigo- Primary Dizziness and giddiness [facility] Diagnosis Chronic vertigo- Primary Tinnitus of right ear Unspecified tinnitus [facility]* Diagnosis Vertigo- Primary Dizziness and giddiness [facility] Diagnosis Vertigo- Primary Dizziness and giddiness Gastroesophageal reflux disease, unspecified whether esophagitis present Bipolar affective disorder, remission status unspecified (HCC) [facility] [place] [facility] Diagnosis Encounter for screening mammogram for malignant neoplasm of breast- Primary Other screening mammogram [facility] Diagnosis Eustachian tube disorder, left- Primary Dermatographic urticaria Itching Unspecified pruritic disorder Dizziness Dizziness and giddiness Bilateral impacted cerumen Impacted cerumen [facility] [place] [facility] Diagnosis Encounter for screening mammogram for breast cancer [facility] Diagnosis Pruritic disorder- Primary Unspecified pruritic disorder Dermatographic urticaria Chronic rhinitis Postnasal drip [facility] [place] [facility] Diagnosis Dysuria- Primary Itching in the vaginal area Pruritus of genital organs [facility] Diagnosis Anxiety with depression- Primary Mixed hyperlipidemia Vertigo Dizziness and giddiness Myalgias Plantar fasciitis Plantar fascial fibromatosis Elevated blood pressure reading without diagnosis of hypertension [facility] [place] [facility]* Diagnosis Hyperglycemia- Primary Other abnormal glucose Hypercalcemia [facility] Diagnosis Candidiasis- Primary Candidiasis of unspecified site [facility] Diagnosis Other chest pain- Primary Acute bilateral low back pain without sciatica ENRIKE (generalized anxiety disorder) Generalized anxiety disorder [facility] Diagnosis Vitamin D deficiency- Primary Unspecified vitamin D deficiency [facility] Diagnosis Encounter for gynecological examination with abnormal finding- Primary Routine gynecological examination Dysmenorrhea Screening for cervical cancer Screening for malignant neoplasm of the cervix Encounter for screening for human papillomavirus (HPV) Special screening examination for human papillomavirus (HPV) Encounter for screening mammogram for breast cancer Menstrual migraine without status migrainosus, not intractable Menstrual migraine, without mention of intractable migraine without mention of status migrainosus [facility] Diagnosis Abnormal mammogram- Primary Abnormal mammogram, unspecified [facility] Diagnosis Surveillance of previously prescribed intrauterine contraceptive device- Primary Intertrigo Other specified erythematous condition Breast tenderness in female Mastodynia [facility] [place] [facility]* Diagnosis Preop examination- Primary Preoperative examination, unspecified Plantar fasciitis Plantar fascial fibromatosis documented in this encounter [facility] note* Diagnosis Abnormal mammogram- Primary Abnormal mammogram, unspecified [facility] [place] [facility] Diagnosis GERD without esophagitis- Primary Esophageal reflux documented in this encounter [facility] note* Diagnosis Dermatographic urticaria Itching Unspecified pruritic disorder documented in this encounter [facility] note* Diagnosis Encounter for screening mammogram for malignant neoplasm of breast Other screening mammogram documented in this encounter [facility] note* Diagnosis Dysmenorrhea documented in this encounter [facility] note* Diagnosis Abnormal mammogram Abnormal mammogram, unspecified documented in this encounter [facility] note* Diagnosis Diarrhea, unspecified type- Primary Gastroesophageal reflux disease without esophagitis Esophageal reflux Rectal bleeding Hemorrhage of rectum and anus documented in this encounter [facility] note* Diagnosis Mixed hyperlipidemia- Primary Gastroesophageal reflux disease, unspecified whether esophagitis present Anxiety with depression Vitamin D deficiency Unspecified vitamin D deficiency Need for hepatitis C screening test Special screening examination for other specified viral diseases Screening for HIV (human immunodeficiency virus) Special screening examination for other specified viral diseases documented in this encounter [facility] note* Diagnosis Vitamin D deficiency- Primary Unspecified vitamin D deficiency documented in this encounter [facility] note* Diagnosis Foot pain, bilateral- Primary Pain in limb documented in this encounter [facility] note* Diagnosis Pain in both feet- Primary Pain in limb documented in this encounter [facility] note* Diagnosis Right acute suppurative otitis media- Primary Acute suppurative otitis media without spontaneous rupture of eardrum Bilateral impacted cerumen Impacted cerumen documented in this encounter [facility] for referral (narrative)* Diagnostic Procedure Only (Routine) - Pending Review Specialty Diagnoses / Procedures Referred By Ashish riggins Referred To Contact [facility] Diagnoses Encounter for screening mammogram for breast cancer Procedures ANSELMO SCREENING SCREENING MAMMOGRAPHY BI 2-VIEW BREAST INC CAD Wilver Jones MD [address] [place] [address] [facility] [address] [place] [address] Referral ID Status Reason Start Date Expiration Date Visits Requested Visits Authorized [id number] Pending Review Auto-Generat ed Referral 04/01/2022 05/01/2023 1 1 [facility] for referral (narrative)* Diagnostic Procedure Only (Routine) - Pending Review Specialty Diagnoses / Procedures Referred By Contac t Referred To Contact [facility] Diagnoses Other chest pain Procedures NM CARDIAC PERF STRESS/PHARM MYOCARDIAL SPECT MULTIPLE STUDIES Katherine Lozano APRN.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 [address] [place] [address] [facility] [address] [id number] Referral ID Status Reason Start Date Expiration Date Visits Requested Visits Authorized [id number] Pending Review Auto-Generat ed Referral 06/26/2022 07/26/2023 1 1 [facility] for referral (narrative)* Diagnostic Procedure Only (Routine) - Authorized Specialty Diagnoses / Procedures Referred By Contac t Referred To Contact [facility] Diagnoses Dysmenorrhea Procedures US FEMALE PELVIS TRANSVAG US TRANSVAGINAL Klaudia Castro APRN.[employer] FL[employer] 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 [address] [place] [address] [facility] Referral ID Status Reason Start Date Expiration Date Visits Requested Visits Authorized [id number] Authorized Auto-Generat ed Referral 07/15/2022 08/14/2023 1 1 * Outpatient Procedure (Routine) - Pending Review Specialty Diagnoses / Procedures Referred By Contac t Referred To Contact [facility] Diagnoses Dysmenorrhea Menstrual migraine without status migrainosus, not intractable Procedures INSERT INTRAUTERINE DEVICE LEVONORGESTREL IU 52MG 5 YR INSERT INTRAUTERINE DEVICE Klaudia Castro APRN.[employer] 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 [address] [place] [address] [facility] [address] [place] [address] Referral ID Status Reason Start Date Expiration Date Visits Requested Visits Authorized [id number] Pending Review Auto-Generat ed Referral 07/15/2022 07/15/2023 1 1 * Diagnostic Procedure Only (Routine) - Pending Review Specialty Diagnoses / Procedures Referred By Ashish riggins Referred To Contact [facility] Diagnoses Dysmenorrhea Procedures PELVIC US WHI US PELVIC NONOBSTETRIC REAL-TIME IMAGE COMPLETE Klaudia Castro APRN.CNP [address] [place] [address] [facility] [address] [place] [address] Referral ID Status Reason Start Date Expiration Date Visits Requested Visits Authorized [id number] Pending Review Auto-Generat ed Referral 07/15/2022 07/15/2023 1 1 * Diagnostic Procedure Only (Routine) - Pending Review Specialty Diagnoses / Procedures Referred By Ashish riggins Referred To Contact [facility] Diagnoses Encounter for gynecological examination with abnormal finding Encounter for screening mammogram for breast cancer Procedures ANSELMO SCREENING W DEREK SCREENING DIGITAL BREAST TOMOSYNTHESIS BI SCREENING MAMMOGRAPHY BI 2-VIEW BREAST INC Klaudia Garcia APRN.CNP [address] [place] [address] [facility] [address] [place] [address] Referral ID Status Reason Start Date Expiration Date Visits Requested Visits Authorized [id number] Pending Review Auto-Generat ed Referral 07/15/2022 08/14/2023 1 1 [facility] for referral (narrative)* Diagnostic Procedure Only (Routine) - Pending Review Specialty Diagnoses / Procedures Referred By Ashish riggins Referred To Contact [facility] Diagnoses Abnormal mammogram Procedures US BREAST LTD RIGHT US BREAST UNI REAL TIME WITH IMAGE LIMITED Wilver Jones MD [address] [place] [address] [facility] [address] [place] [address] Referral ID Status Reason Start Date Expiration Date Visits Requested Visits Authorized [id number] Pending Review Auto-Generat ed Referral 07/16/2022 08/15/2023 1 1 * Diagnostic Procedure Only (Routine) - Pending Review Specialty Diagnoses / Procedures Referred By Contac t Referred To Contact [facility] Diagnoses Abnormal mammogram Procedures US BREAST LTD LEFT US BREAST UNI REAL TIME WITH IMAGE LIMITED Wilver Jones MD [address] [place] [address] [facility] [address] [place] [address] Referral ID Status Reason Start Date Expiration Date Visits Requested Visits Authorized [id number] Pending Review Auto-Generat ed Referral 07/16/2022 08/15/2023 1 1 * Diagnostic Procedure Only (Routine) - Pending Review Specialty Diagnoses / Procedures Referred By Ashish t Referred To Contact [facility] Diagnoses Abnormal mammogram Procedures ANSELMO DIAGNOSTIC BILATERAL DIAGNOSTIC MAMMOGRAPHY COMPUTER-AIDED DETCJ BI Wilver Jones MD [address] [place] [address] [facility] [address] [place] [address] Referral ID Status Reason Start Date Expiration Date Visits Requested Visits Authorized [id number] Pending Review Auto-Generat ed Referral 07/16/2022 08/15/2023 1 1 [facility] for referral (narrative)* Diagnostic Procedure Only (Routine) - Pending Review Specialty Diagnoses / Procedures Referred By Contac t Referred To Contact [facility] Diagnoses Abnormal mammogram Procedures US BREAST LTD RIGHT US BREAST UNI REAL TIME WITH IMAGE LIMITED Wilver Jones MD [address] [place] [address] [facility] [address] [place] [address] Referral ID Status Reason Start Date Expiration Date Visits Requested Visits Authorized [id number] Pending Review Auto-Generat ed Referral 04/15/2023 11/12/2023 1 1 * Diagnostic Procedure Only (Routine) - Pending Review Specialty Diagnoses / Procedures Referred By Ashish t Referred To Contact [facility] Diagnoses Abnormal mammogram Procedures ANSELMO DIAGNOSTIC RIGHT DIAGNOSTIC MAMMOGRAPHY COMPUTER-AIDED DETCJ UNI Wilver Jones MD [address] [place] [address] [facility] [address] [place] [address] [id number] Referral ID Status Reason Start Date Expiration Date Visits Requested Visits Authorized [id number] Pending Review Auto-Generat ed Referral 04/15/2023 11/12/2023 1 1 [facility] for referral (narrative)* Diagnostic Procedure Only (Routine) - Closed Specialty Diagnoses / Procedures Referred By Ashish riggins Referred To Contact [facility] Diagnoses Encounter for screening mammogram for malignant neoplasm of breast Procedures ANSELMO SCREENING SCREENING MAMMOGRAPHY BI 2-VIEW BREAST INC CAD Wilver Jones MD [address] [place] [address] [facility] [address] [place] [phone] Referral ID Status Reason Start Date Expiration Date V isits Requested Visits Authorized [id number] Closed Auto-Generate d Referral 07/09/2022 08/08/2023 1 1 [facility] for referral (narrative)* Diagnostic Procedure Only (Routine) - Closed Specialty Diagnoses / Procedures Referred By Ashish t Referred To Contact [facility] Diagnoses Dysmenorrhea Procedures US FEMALE PELVIS TRANSVAG US TRANSVAGINAL Klaudia Castro APRN.IN FLIGHT 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 [address] [place] [address] [place] [id number] Referral ID Status Reason Start Date Expiration Date V isits Requested Visits Authorized [id number] Closed Auto-Generate d Referral 07/15/2022 08/14/2023 1 1 [facility] for referral (narrative)* Diagnostic Procedure Only (Routine) - Closed Specialty Diagnoses / Procedures Referred By Ashish riggins Referred To Contact [facility] Diagnoses Abnormal mammogram Procedures US BREAST LTD RIGHT US BREAST UNI REAL TIME WITH IMAGE LIMITED Wilver Jones MD [address] [place] [address] [facility] [address] [place] [address] Referral ID Status Reason Start Date Expiration Date V isits Requested Visits Authorized [id number] Closed Auto-Generate d Referral 07/16/2022 08/15/2023 1 1 [facility] for referral (narrative)* Outpatient Procedure (Routine) - Authorized Specialty Diagnoses / Procedures Referred By Ashish t Referred To Contact [facility] Diagnoses Diarrhea, unspecified type Rectal bleeding Procedures COLONOSCOPY DIAGNOSTIC COLONOSCOPY FLX DX W/COLLJ SPEC WHEN PFIbrahima Reyes MD [address] [place] [address] [facility] [address] [place] [id number] Referral ID Status Reason Start Date Expiration Date Visits Requested Visits Authorized [id number] Authorized Auto-Generat ed Referral 3 12/26/2023 1 1 * Outpatient Procedure (Routine) - Authorized Specialty Diagnoses / Procedures Referred By Ashish riggins Referred To Contact [facility] Diagnoses Gastroesophageal reflux disease without esophagitis Diarrhea, unspecified type Rectal bleeding Procedures EGD DIAGNOSTIC ESOPHAGOGASTRODUODENOSC OPY TRANSORAL DIAGNOSTIC Ibrahima Lopez MD [address] [place] [address] [facility] [address] [place] [address] Referral ID Status Reason Start Date Expiration Date Visits Requested Visits Authorized [id number] Authorized Auto-Generat ed Referral 3 12/26/2023 1 1 [facility] for visit Narrative* Diagnostic Procedure Only (Routine) - Closed Specialty Diagnoses / Procedures Referred By Ashish riggins Referred To Contact Radiology / [facility] Diagnoses Other chest pain [R07.89] NM CARDIAC PERF STRESS/PHARM Procedures NUCLEAR STRESS TEST [place] Katherine Lozano, LABORER [employer]LLF[employer] PROCESSING.IN FLIGHT 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 [address] [place] [address] [facility] [address] [place] [address] Referral ID Status Reason Start Date Expiration Date Visits Re quested Visits Authorized [id number] Closed 07/22/2022 10/20/2022 1 1 [facility] for visit Narrative* Diagnostic Procedure Only (Routine) - Closed Specialty Diagnoses / Procedures Referred By Ashish riggins Referred To Contact Cardiology / [facility] Diagnoses Other chest pain [R07.89] NM CARDIAC PERF STRESS/PHARM Procedures NUCLEAR STRESS TEST Katherine Lozano, LABORER SHELLFISH PROCESSING.IN FLIGHT 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 [address] [place] [address] [facility] [address] [place] [address] Referral ID Status Reason Start Date Expiration Date Visits Re quested Visits Authorized [id number] Closed 07/22/2022 10/20/2022 1 1 [facility] for visit Narrative* Diagnostic Procedure Only (Routine) - Closed Specialty Diagnoses / Procedures Referred By Ashish riggins Referred To Contact [facility] Diagnoses Encounter for screening mammogram for malignant neoplasm of breast Procedures ANSELMO SCREENING SCREENING MAMMOGRAPHY BI 2-VIEW BREAST INC CAD Wilver Jones MD [address] [place] [address] [facility] [address] [place] [address] Referral ID Status Reason Start Date Expiration Date V isits Requested Visits Authorized [id number] Closed Auto-Generate d Referral 07/09/2022 08/08/2023 1 1 [facility] Advance Directives No Advanced Directives Records FoundDocuments on File Type Date Recorded Patient Sql Database Administrator Expl anation Advance Directive(s) 11/04/2018 7:38 AM Advance Directive(s) 10/26/2018 12:52 PM Advance Directive(s) 01/14/2018 9:18 AM Advance Directive(s) 12/28/2017 7:19 AM Reason for Referral Specialty Diagnoses / Procedures Referred By Contac t Referred To Contact [facility] Diagnoses Vertigo Procedures CONSULT TO PHYSICAL THERAPY PHYSICAL THERAPY EVALUATION HIGH COMPLEX 45 MINS Wilver Jones MD [address] [place] [address] [facility] [address] [place] [address] Referral ID Status Reason Start Date Expiration Date Visits Requested Visits Authorized [id number] Pending Review Auto-Generat ed Referral 2 01/09/2023 1 1 Specialty Diagnoses / Procedures Referred By Contac t Referred To Contact Ent - Otolaryngology Diagnoses Chronic vertigo Tinnitus of right ear Procedures CONSULT TO ENT OFFICE/OUTPATIENT [facility] 60-74 MINUTES Kj Edwards PA-C [address] [place] [address] Referral ID Status Reason Start Date Expiration Date Visits Requested Visits Authorized [id number] Authorized PCP Requested Referral 01/23/2022 01/23/2023 1 1 Specialty Diagnoses / Procedures Referred By Contac t Referred To Contact [facility] Diagnoses Vertigo Procedures PT REHAB FOLLOW UP ORDER THERAPEUTIC EXERCISES RE, EA 15 MIN. Jennifer Phillips, PT [facility] [address] [place] [address] Referral ID Status Reason Start Date Expiration Date Visits Requested Visits Authorized [id number] Pending Review PCP Requested Referral Auto-Generate d Referral 2 04/28/2022 1 1 Specialty Diagnoses / Procedures Referred By Contac t Referred To Contact [facility] Diagnoses Dizziness Procedures CONSULT TO PHYSICAL THERAPY PHYSICAL THERAPY EVALUATION HIGH COMPLEX 45 MINS Katherine Lozano APRN.IN FLIGHT 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 [address] [place] [address] [facility] [address] [place] [address] Referral ID Status Reason Start Date Expiration Date Visits Requested Visits Authorized [id number] Pending Review Auto-Generat ed Referral 04/01/2022 04/01/2023 1 1 Specialty Diagnoses / Procedures Referred By Contac t Referred To Contact Allergy Diagnoses Dermatographic urticaria Itching Procedures CONSULT TO ALLERGY/IMMUNOLOGY OFFICE/OUTPATIENT NEW HIGH MDM 60-74 MINUTES Katherine Lozano APRN.CNP [address] [place] [address] Referral ID Status Reason Start Date Expiration Date Visits Requested Visits Authorized [id number] Authorized PCP Requested Referral 04/01/2022 04/01/2023 1 1 Specialty Diagnoses / Procedures Referred By Ashish riggins Referred To Contact Wilver Jones MD [address] [place] [address] Referral ID Status Reason Start Date Expiration Date Visits Re quested Visits Authorized [id number] Closed 1 1 Medications Administered Section Inactive Administered Medications - up to 3 most recent administrations Medication Order MAR Action Action Date Dose Rate Site regadenoson 0.4 mg injection (LEXISCAN) 0.4 mg, INTRAVENOUS, ONCE, 1 dose, On Wed07/22/22 at 1400, Give 0.4 mg (5 mL) over ~10 seconds, followed immediately by a 5 mL saline flush. Wait 10-20 seconds, then administer the radionuclide myocardial perfusion imaging agent. Given 07/22/2022 1:30 PM EDT 0.4 mg Summary Purpose Family History No Family History Records FoundNo Family History Records Found Additional Source Comments Source Comments (unrecognize d section and content) In the event this informatio n is protected by the Federal Confidentiality of Alcohol and Drug Abuse Patient Records regulations: The Federal rules restrict any use of the information to criminally investigate or prosecute any alcohol or drug abuse patient.[facility] the event this information is protected by the Federal Confidentiality of Alcohol and Drug Abuse Patient Records regulations: The Federal rules restrict any use of the information to criminally investigate or prosecute any alcohol or drug abuse patient.[facility] the event this information is protected by the Federal Confidentiality of Alcohol and Drug Abuse Patient Records regulations: The Federal rules restrict any use of the information to criminally investigate or prosecute any alcohol or drug abuse patient.[facility] the event this information is protected by the Federal Confidentiality of Alcohol and Drug Abuse Patient Records regulations: The Federal rules restrict any use of the information to criminally investigate or prosecute any alcohol or drug abuse patient.[facility] the event this information is protected by the Federal Confidentiality of Alcohol and Drug Abuse Patient Records regulations: The Federal rules restrict any use of the information to criminally investigate or prosecute any alcohol or drug abuse patient.[facility] the event this information is protected by the Federal Confidentiality of Alcohol and Drug Abuse Patient Records regulations: The Federal rules restrict any use of the information to criminally investigate or prosecute any alcohol or drug abuse patient.[facility] Hospital[facility] the event this information is protected by the Federal Confidentiality of Alcohol and Drug Abuse Patient Records regulations: The Federal rules restrict any use of the information to criminally investigate or prosecute any alcohol or drug abuse patient.[facility] Hospital[facility] the event this information is protected by the Federal Confidentiality of Alcohol and Drug Abuse Patient Records regulations: The Federal rules restrict any use of the information to criminally investigate or prosecute any alcohol or drug abuse patient.[facility] Hospital[facility] the event this information is protected by the Federal Confidentiality of Alcohol and Drug Abuse Patient Records regulations: The Federal rules restrict any use of the information to criminally investigate or prosecute any alcohol or drug abuse patient.[facility] Hospital[facility] the event this information is protected by the Federal Confidentiality of Alcohol and Drug Abuse Patient Records regulations: The Federal rules restrict any use of the information to criminally investigate or prosecute any alcohol or drug abuse patient.[facility] the event this information is protected by the Federal Confidentiality of Alcohol and Drug Abuse Patient Records regulations: The Federal rules restrict any use of the information to criminally investigate or prosecute any alcohol or drug abuse patient.[facility] Hospital[facility] the event this information is protected by the Federal Confidentiality of Alcohol and Drug Abuse Patient Records regulations: The Federal rules restrict any use of the information to criminally investigate or prosecute any alcohol or drug abuse patient.[facility] Hospital[facility] the event this information is protected by the Federal Confidentiality of Alcohol and Drug Abuse Patient Records regulations: The Federal rules restrict any use of the information to criminally investigate or prosecute any alcohol or drug abuse patient.[facility] Hospital[facility] the event this information is protected by the Federal Confidentiality of Alcohol and Drug Abuse Patient Records regulations: The Federal rules restrict any use of the information to criminally investigate or prosecute any alcohol or drug abuse patient.[facility] HospitalIn the event this information is protected by the Federal Confidentiality of Alcohol and Drug Abuse Patient Records regulations: The Federal rules restrict any use of the information to criminally investigate or prosecute any alcohol or drug abuse patient.[facility] Hospital[facility] the event this information is protected by the Federal Confidentiality of Alcohol and Drug Abuse Patient Records regulations: The Federal rules restrict any use of the information to criminally investigate or prosecute any alcohol or drug abuse patient.[facility] HospitalIn the event this information is protected by the Federal Confidentiality of Alcohol and Drug Abuse Patient Records regulations: The Federal rules restrict any use of the information to criminally investigate or prosecute any alcohol or drug abuse patient.[facility] HospitalIn the event this information is protected by the Federal Confidentiality of Alcohol and Drug Abuse Patient Records regulations: The Federal rules restrict any use of the information to criminally investigate or prosecute any alcohol or drug abuse patient.[facility] HospitalIn the event this information is protected by the Federal Confidentiality of Alcohol and Drug Abuse Patient Records regulations: The Federal rules restrict any use of the information to criminally investigate or prosecute any alcohol or drug abuse patient.[facility] HospitalIn the event this information is protected by the Federal Confidentiality of Alcohol and Drug Abuse Patient Records regulations: The Federal rules restrict any use of the information to criminally investigate or prosecute any alcohol or drug abuse patient.[facility] HospitalIn the event this information is protected by the Federal Confidentiality of Alcohol and Drug Abuse Patient Records regulations: The Federal rules restrict any use of the information to criminally investigate or prosecute any alcohol or drug abuse patient.[facility] HospitalIn the event this information is protected by the Federal Confidentiality of Alcohol and Drug Abuse Patient Records regulations: The Federal rules restrict any use of the information to criminally investigate or prosecute any alcohol or drug abuse patient.[facility] HospitalIn the event this information is protected by the Federal Confidentiality of Alcohol and Drug Abuse Patient Records regulations: The Federal rules restrict any use of the information to criminally investigate or prosecute any alcohol or drug abuse patient.[facility] HospitalIn the event this information is protected by the Federal Confidentiality of Alcohol and Drug Abuse Patient Records regulations: The Federal rules restrict any use of the information to criminally investigate or prosecute any alcohol or drug abuse patient.[facility] the event this information is protected by the Federal Confidentiality of Alcohol and Drug Abuse Patient Records regulations: The Federal rules restrict any use of the information to criminally investigate or prosecute any alcohol or drug abuse patient.[facility] HospitalIn the event this information is protected by the Federal Confidentiality of Alcohol and Drug Abuse Patient Records regulations: The Federal rules restrict any use of the information to criminally investigate or prosecute any alcohol or drug abuse patient.[facility] HospitalIn the event this information is protected by the Federal Confidentiality of Alcohol and Drug Abuse Patient Records regulations: The Federal rules restrict any use of the information to criminally investigate or prosecute any alcohol or drug abuse patient.[facility] HospitalIn the event this information is protected by the Federal Confidentiality of Alcohol and Drug Abuse Patient Records regulations: The Federal rules restrict any use of the information to criminally investigate or prosecute any alcohol or drug abuse patient.[facility] HospitalIn the event this information is protected by the Federal Confidentiality of Alcohol and Drug Abuse Patient Records regulations: The Federal rules restrict any use of the information to criminally investigate or prosecute any alcohol or drug abuse patient.[facility] HospitalIn the event this information is protected by the Federal Confidentiality of Alcohol and Drug Abuse Patient Records regulations: The Federal rules restrict any use of the information to criminally investigate or prosecute any alcohol or drug abuse patient.[facility] HospitalIn the event this information is protected by the Federal Confidentiality of Alcohol and Drug Abuse Patient Records regulations: The Federal rules restrict any use of the information to criminally investigate or prosecute any alcohol or drug abuse patient.[facility] HospitalIn the event this information is protected by the Federal Confidentiality of Alcohol and Drug Abuse Patient Records regulations: The Federal rules restrict any use of the information to criminally investigate or prosecute any alcohol or drug abuse patient.[facility] HospitalIn the event this information is protected by the Federal Confidentiality of Alcohol and Drug Abuse Patient Records regulations: The Federal rules restrict any use of the information to criminally investigate or prosecute any alcohol or drug abuse patient.[facility] HospitalIn the event this information is protected by the Federal Confidentiality of Alcohol and Drug Abuse Patient Records regulations: The Federal rules restrict any use of the information to criminally investigate or prosecute any alcohol or drug abuse patient.[facility] HospitalIn the event this information is protected by the Federal Confidentiality of Alcohol and Drug Abuse Patient Records regulations: The Federal rules restrict any use of the information to criminally investigate or prosecute any alcohol or drug abuse patient.[facility] HospitalIn the event this information is protected by the Federal Confidentiality of Alcohol and Drug Abuse Patient Records regulations: The Federal rules restrict any use of the information to criminally investigate or prosecute any alcohol or drug abuse patient.[facility] HospitalIn the event this information is protected by the Federal Confidentiality of Alcohol and Drug Abuse Patient Records regulations: The Federal rules restrict any use of the information to criminally investigate or prosecute any alcohol or drug abuse patient.[facility] HospitalIn the event this information is protected by the Federal Confidentiality of Alcohol and Drug Abuse Patient Records regulations: The Federal rules restrict any use of the information to criminally investigate or prosecute any alcohol or drug abuse patient.[facility] HospitalIn the event this information is protected by the Federal Confidentiality of Alcohol and Drug Abuse Patient Records regulations: The Federal rules restrict any use of the information to criminally investigate or prosecute any alcohol or drug abuse patient.[facility] HospitalIn the event this information is protected by the Federal Confidentiality of Alcohol and Drug Abuse Patient Records regulations: The Federal rules restrict any use of the information to criminally investigate or prosecute any alcohol or drug abuse patient.[facility] HospitalIn the event this information is protected by the Federal Confidentiality of Alcohol and Drug Abuse Patient Records regulations: The Federal rules restrict any use of the information to criminally investigate or prosecute any alcohol or drug abuse patient.[facility] HospitalIn the event this information is protected by the Federal Confidentiality of Alcohol and Drug Abuse Patient Records regulations: The Federal rules restrict any use of the information to criminally investigate or prosecute any alcohol or drug abuse patient.[facility] HospitalIn the event this information is protected by the Federal Confidentiality of Alcohol and Drug Abuse Patient Records regulations: The Federal rules restrict any use of the information to criminally investigate or prosecute any alcohol or drug abuse patient.[facility] HospitalIn the event this information is protected by the Federal Confidentiality of Alcohol and Drug Abuse Patient Records regulations: The Federal rules restrict any use of the information to criminally investigate or prosecute any alcohol or drug abuse patient.[facility] HospitalIn the event this information is protected by the Federal Confidentiality of Alcohol and Drug Abuse Patient Records regulations: The Federal rules restrict any use of the information to criminally investigate or prosecute any alcohol or drug abuse patient.[facility] HospitalIn the event this information is protected by the Federal Confidentiality of Alcohol and Drug Abuse Patient Records regulations: The Federal rules restrict any use of the information to criminally investigate or prosecute any alcohol or drug abuse patient.[facility] HospitalIn the event this information is protected by the Federal Confidentiality of Alcohol and Drug Abuse Patient Records regulations: The Federal rules restrict any use of the information to criminally investigate or prosecute any alcohol or drug abuse patient.[facility] Care Teams (unrecognized sec tion and content) Buyer Renter Relationship Specialty Start Date End Date Wilver Jones MD [address] [facility] [place] [address] PCP - General Family Practice 11/18/17 Buyer Renter Relationship Specialty Start Date End Date Wilver Jones MD [address] [facility] [place] [address] PCP - General Family Practice 11/18/17 Buyer Renter Relationship Specialty Start Date End Date Wilver Jones MD [address] [facility] [place] [address] PCP - General Family Practice 11/18/17 Buyer Renter Relationship Specialty Start Date End Date Wilver Jones MD [address] [facility] [place] [address] PCP - General Family Medicine 11/18/17 Buyer Renter Relationship Specialty Start Date End Date Wilver Jones MD [address] [facility] [place] [address] PCP - General Family Medicine 11/18/17 Buyer Renter Relationship Specialty Start Date End Date Wilver Jones MD [address] [facility] [place] [address] PCP - General Family Medicine 11/18/17 Buyer Renter Relationship Specialty Start Date End Date Wilver Jones MD [address] [facility] [place] [address] PCP - General Family Medicine 11/18/17 Buyer Renter Relationship Specialty Start Date End Date Wilver Jones MD [address] [facility] [place] [address] PCP - General Family Medicine 11/18/17 Buyer Renter Relationship Specialty Start Date End Date Wilver Jones MD [address] [facility] [place] [address] PCP - General Family Medicine 11/18/17 Buyer Renter Relationship Specialty Start Date End Date Wilver Jones MD [address] [facility] [place] [address] PCP - General Family Medicine 11/18/17 Buyer Renter Relationship Specialty Start Date End Date Wilver Jones MD [address] [facility] [place] [address] PCP - General Family Medicine 11/18/17 Buyer Renter Relationship Specialty Start Date End Date Wilver Jones MD [address] [facility] [place] [address] PCP - General Family Medicine 11/18/17 Buyer Renter Relationship Specialty Start Date End Date Wilver Jones MD [address] [facility] [place] [address] PCP - General Family Medicine 11/18/17 Buyer Renter Relationship Specialty Start Date End Date Wilver Jones MD [address] [facility] [place] [address] PCP - General Family Medicine 11/18/17 Buyer Renter Relationship Specialty Start Date End Date Wilver Jones MD [address] [facility] [place] [address] PCP - General Family Medicine 11/18/17 Buyer Renter Relationship Specialty Start Date End Date Wilver Jones MD [address] [facility] [place] [address] PCP - General Family Medicine 11/18/17 Buyer Renter Relationship Specialty Start Date End Date Wilver Jones MD [address] [facility] [place] [address] PCP - General Family Medicine 11/18/17 Buyer Renter Relationship Specialty Start Date End Date Wilver Jones MD [address] [facility] [place] [address] PCP - General Family Medicine 11/18/17 Buyer Renter Relationship Specialty Start Date End Date Wilver Jones MD [address] [facility] [place] [address] PCP - General Family Medicine 11/18/17 Buyer Renter Relationship Specialty Start Date End Date Wilver Jones MD [address] [facility] [place] [address] PCP - General Family Medicine 11/18/17 Buyer Renter Relationship Specialty Start Date End Date Wilver Jones MD [address] [facility] [place] [address] PCP - General Family Medicine 11/18/17 Buyer Renter Relationship Specialty Start Date End Date Wilver Jones MD [address] [facility] [place] [address] PCP - General Family Medicine 11/18/17 Buyer Renter Relationship Specialty Start Date End Date Wilver Jones MD [address] [facility] [place] [address] PCP - General Family Medicine 11/18/17 Buyer Renter Relationship Specialty Start Date End Date Wilver Jones MD [address] [facility] [place] [address] PCP - General Family Medicine 11/18/17 Buyer Renter Relationship Specialty Start Date End Date Wilver Jones MD [address] [facility] [place] [address] PCP - General Family Medicine 11/18/17 Buyer Renter Relationship Specialty Start Date End Date Wilver Jones MD [address] [facility] [place] [address] PCP - General Family Medicine 11/18/17 Buyer Renter Relationship Specialty Start Date End Date Wilver Jones MD [address] [facility] [place] [address] PCP - General Family Medicine 11/18/17 Buyer Renter Relationship Specialty Start Date End Date Wilver Jones MD [address] [facility] [place] [address] PCP - General Family Medicine 11/18/17 Buyer Renter Relationship Specialty Start Date End Date Wilver Jones MD [address] [place] [address] PCP - General Family Medicine 11/18/17 Buyer Renter Relationship Specialty Start Date End Date Wilver Jones MD [address] [place] [address] PCP - General Family Medicine 11/18/17 Buyer Renter Relationship Specialty Start Date End Date Wilver Jones MD [address] [place] [address] PCP - General Family Medicine 11/18/17 Buyer Renter Relationship Specialty Start Date End Date Wilver Jones MD [address] [place] [address] PCP - General Family Medicine 11/18/17 Buyer Renter Relationship Specialty Start Date End Date Wilver Jones MD [address] [place] [address] PCP - General Family Medicine 11/18/17 Buyer Renter Relationship Specialty Start Date End Date Wilver Jones MD [address] [place] [address] PCP - General Family Medicine 11/18/17 Buyer Renter Relationship Specialty Start Date End Date Wilver Jones MD [address] [place], [place] [address] PCP - General Family Medicine 11/18/17 Buyer Renter Relationship Specialty Start Date End Date Wilver Jones MD [address] [place], [place] [address] PCP - General Family Medicine 11/18/17 Buyer Renter Relationship Specialty Start Date End Date Wilver Jones MD [address] [place], [place] [address] PCP - General Family Medicine 11/18/17 Buyer Renter Relationship Specialty Start Date End Date Wilver Jones MD [address] [place], [place] [id number] PCP - General Family Medicine 11/18/17 Reason for Visit (unrecogniz ed section and content) Specialty Diagnoses / Procedures Referred By Contac t Referred To Contact [facility] Diagnoses Abnormal mammogram Procedures US BREAST LTD RIGHT US BREAST UNI REAL TIME WITH IMAGE LIMITED Wilver Jones MD [address] [place] [address] [facility] [address] [place] [address] Referral ID Status Reason Start Date Expiration Date V isits Requested Visits Authorized [id number] Closed Auto-Generate d Referral 07/16/2022 08/15/2023 1 1 Reason Comments Anxiety pt asking for someth ing for anxiety to take as needed Reason Comments Vaginal Problem Reason Comments Acute Visit Itchy skin all over for 6 months Reason Comments Hospital F/U Reason Comments Follow Up 2 week follow up: ve rtigo. Has PT appointment scheduled for 01/28/22. Has been out of work since 01/13/22. Reason Comments PT Eval Specialty Diagnoses / Procedures Referred By Contac t Referred To Contact [facility] Diagnoses Vertigo Procedures CONSULT TO PHYSICAL THERAPY PHYSICAL THERAPY EVALUATION HIGH COMPLEX 45 MINS Wilver Jones MD [address] [place] [address] [facility] [address] [place] [address] Referral ID Status Reason Start Date Expiration Date V isits Requested Visits Authorized [id number] Closed Auto-Generate d Referral 02/15/2021 02/14/2022 1 1 Reason Comments Forms Reason Comments Follow Up Reason Onset Date Comments Population Health Navigation Outreach 03/26/2022 [facility] Medicaid Project Reason Comments Acute Visit L ear feels like the re is fluid in it Reason Comments New Patient Dermatographic urtic aria and itching Specialty Diagnoses / Procedures Referred By Contac t Referred To Contact Allergy Diagnoses Dermatographic urticaria Itching Procedures CONSULT TO ALLERGY/IMMUNOLOGY OFFICE/OUTPATIENT [facility] 60-74 MINUTES Katherine Lozano APRN.CADY [address] [place] [address] Referral ID Status Reason Start Date Expiration Date V isits Requested Visits Authorized [id number] Closed PCP Requested Referral 04/01/2022 04/01/2023 1 1 Reason Comments fax PT order to [facility] Reason Comments UTI Or possibly yeast in fection. Itching, burning after urination, frequency to urinate Reason Comments Results Reason Comments Plantar Fasciitis Reason Comments Results, Lab Reason Comments Patient Update Reason Comments Medication Request Reason Comments Recheck 1 month follow up Reason Comments Yearly Exam Specialty Diagnoses / Procedures Referred By Contac t Referred To Contact Gynecology Diagnoses Screening for cervical cancer Procedures CONSULT TO GYNECOLOGY OFFICE/OUTPATIENT [facility] 60-74 MINUTES Wilver Jones MD [address] [place] [address] Referral ID Status Reason Start Date Expiration Date V isits Requested Visits Authorized [id number] Closed PCP Requested Referral Auto-Generated Referral 07/09/2022 07/09/2023 1 1 Reason Comments Results Reason Comments Reminder Call Reason Comments Medical Clearance Foot surgery Reason Comments Pre-Op Exam Surgery for plantar fasciitis, no surgery date yet Reason Comments Heartburn Reason Onset Date Comments Refill Request 12/11/2022 Specialty Diagnoses / Procedures Referred By Contac t Referred To Contact [facility] IMAGING Diagnoses Dysmenorrhea Procedures US FEMALE PELVIS TRANSVAG US TRANSVAGINAL Klaudia Castro, LABORER [employer].IN FLIGHT 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 [address] [place] [address] [facility] [place] [address] Referral ID Status Reason Start Date Expiration Date V isits Requested Visits Authorized [id number] Closed Auto-Generate d Referral 07/15/2022 08/14/2023 1 1 Reason Comments Gastroesophageal Reflux Specialty Diagnoses / Procedures Referred By Contac t Referred To Contact General Surgery Diagnoses Gastroesophageal reflux disease without esophagitis Procedures CONSULT TO GENERAL SURGERY OFFICE/OUTPATIENT [facility] 60-74 MINUTES Wilver Jones MD [address] [place] [address] Referral ID Status Reason Start Date Expiration Date V isits Requested Visits Authorized [id number] Closed PCP Requested Referral 12/07/2022 12/07/2023 1 1 Reason Comments Pain Left foot pain Reason Comments Appointment Reason Comments Recheck Reason Comments Forms [facility] Learning Disabilities Specialist, 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, [facility] Reason Comments Ear Pain RIGHT ear with swoll en lymphnodes HECTOR neck, congestion with yellow/green phlegm x 2 days INFORMATION SOURCE (unrecogn ized section and content) DATE CREATED AUTHOR AUTHOR'S ORGANIZ ATION 04/16/2023 [facility] FOR RECORDS PERTAINING TO PATIENTS WHO ARE OR HAVE BEEN ENROLLED IN A CHEMICAL DEPENDENCY/SUBSTANCEABUSE PROGRAM, SOME INFORMATION MAY BE OMITTED. This clinical summary was aggregated from multiple sources. Caution should be exercised in using it in the provision of clinical care. This summary normalizes information from multiple sources, and as a consequence, information in this document may materially change the coding, format and clinical context of patient data. In addition, data may be omitted in some cases. CLINICAL DECISIONS SHOULD BE BASED ON THE PRIMARY CLINICAL RECORDS. [email or web address] provides no warranty or guarantee of the accuracy or completeness of information in this document.
[2023-05-02 10:10] LABS: Absolute Lymphocyte Count 3.31 X10^3/uL (0.83-4.51); Absolute Neutrophil Count 7.5 X10^3/uL (2.0-7.7); Basophil# 0.06 X10^3/uL; Basophil% 0.5 % (0-1); Eosinophil# 0.27 X10^3/uL; Eosinophils% 2.3 % (0-5); Hematocrit 42.1 % (37-47); Hemoglobin 13.8 g/dL (12.0-15.0); Lymphocyte # 3.31 X10^3/ul (0.83-4.51); Lymphocyte % 27.9 % (19-41); Mean Corp Hgb Conc 32.8 g/dL (32-36); Mean Corpuscular Hgb 29.2 pg (27.0-32.0); Mean Corpuscular Volume 89.2 fL (81-99); Mean Platelet Vol. 9.7 fl (6.2-12.0); Monocyte# 0.73 X10^3/uL; Monocyte% 6.2 % (0-10); NRBC Flagged by Analyzer 0 % (0-5); Neutrophil # 7.46 X10^3/uL (2.7-7.7); Neutrophil % 62.9 % (47-70); Platelet Count 365 K/mm3 (150-450); RBC Distribution Width CV 13.4 % (11.6-14.6); RBC Distribution Width SD 44.1 fl (35.1-43.9); Red Blood Count 4.72 M/mm3 (4.2-5.4); White Blood Count 11.9 K/mm3 (4.4-11.0)
[2023-05-02 10:21] LABS: Anion Gap 2 (5-15); BUN 14 mg/dL (7-18); BUN/Creat Ratio 22.9 RATIO (10-20); Calcium,Total 8.8 mg/dL (8.5-10.1); Chloride 110 mmol/L (98-107); Creatinine, Serum 0.61 mg/dL (0.55-1.02); EST Glomerular Filtration Rate 114 mL/min (>60); Est Glom Filt Rate - Afr Amer 138 mL/min (>60); Estimated Creatinine Clearance 126.19 ml/min; Glucose 112 mg/dL (74-106); Sodium Level 136 mmol/L (136-145)
[2023-05-02 10:34] LABS: Internal QC Validated? YES +Cl - CLEAR BKGD; Monotest Negative (Negative); Record Kit Lot#, Mono 13231163
--- NOTE | 2023-05-02 11:12 | CT_ITS ---
EXAM: CT NECK WITH INTRAVENOUS CONTRAST CLINICAL INDICATION: Anterior right neck and ear pain TECHNIQUE: Helically acquired images were obtained of the neck with intravenous contrast. This CT exam was performed using one or more of the following dose reduction techniques: automated exposure control, adjustment of the mA and/or kV according to patient size, and/or use of iterative reconstruction technique. CONTRAST: IV 75mL Isovue-370 COMPARISON: No relevant prior studies available. FINDINGS: NASOPHARYNX: Normal. SUPRAHYOID NECK: Mild bilateral tonsillar hypertrophy. INFRAHYOID NECK: Normal. The larynx, hypopharynx and supraglottis are unremarkable. SUBMANDIBULAR/PAROTID GLANDS: Salivary glands are normal in size. THYROID: 4 mm right thyroid nodule/colloid cyst. ACR White Paper guidelines (Vivek JK, et al. JACR 2015;12(2):143-50) suggest no follow-up is necessary. BONES/JOINTS: No suspicious lytic or blastic abnormality. SOFT TISSUES: Normal. VASCULATURE: No acute findings. LYMPH NODES: Reactive bilateral level 2 cervical lymph nodes. LUNG APICES: Unremarkable as visualized. CT/Soft Tissue Neck WITH Contrast IMPRESSION: Reactive lymphadenopathy as described. Otherwise unremarkable CT neck. Electronically Signed: Errol Lucio MD at 12:38 EDT ,
[2023-05-02 12:55] VITALS: BP 110/74; PULSE 71; RESP 16; TEMP 35.1; O2SAT 98
== END 2023-05-02 12:57 | disposition home or self-care (01) ==
PROVIDERS: Emergency Provider Emergency Medicine; PCP Family Medicine; Visit Provider Emergency Medicine
DX: R59.0 Localized enlarged lymph nodes (principal); F17.210 Nicotine dependence, cigarettes, uncomplicated
CPT/HCPCS: 36415; 70491; 80048; 85025; 86308; 87651; 99282; Q9967

== ENCOUNTER → 2023-05-11 | Outpatient (CLI) | payer MEDICAID, SELFPAY ==
--- NOTE | 2023-05-11 08:23 | NEURO ---
NCS and/or EMG Patient Report Ordering Doctor: Bal Yuan DATE OF SERVICE: 05/11/23 Clinical Summary: 43 year old female patient with symptoms of pain in the right foot including heel pain and sharp pains on the top of the right foot. She denies having any pain in the left foot. She denies having any numbness or tingling. Nerve Conduction Studies Summary: The right medial and lateral planter SNAP's are of lower amplitude compared to the left side. The right peroneal motor conduction velocity drops greater than 10 m/s across the fibular head. Needle Examination Summary: Needle examination of select muscles of the bilateral lower extremities was normal. The patient had difficulty tolerating the needle examination and as such, insertional/spontaneous activity for the right flexor digitorum longus muscle could not be obtained. 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
== END | disposition home or self-care (01) ==
PROVIDERS: PCP Family Medicine; Referring Provider Podiatrist; Visit Provider Podiatrist
DX: R20.2 Paresthesia of skin (principal)
CPT/HCPCS: 95886; 95912

== ENCOUNTER 2023-06-09 10:00 | Outpatient (RCR) | payer MEDICAID, SELFPAY ==
--- NOTE | 2023-04-26 14:57 | HP.PTEVAL_ITS ---
Patient's Visit Information Visit Information Visit Information: HENRRY LARA is a 43 year old F referred to Physical Therapy by Dr. Bal Yuan DPM with a diagnosis of R Plantar Fascial Fibromatosis. Date of Evaluation: 04/26/23 Physical Therapist: CHARY Alcazar Visit Plan Frequency: 2x /Week Duration: 2 Months Plan: 2X/ week for 6 weeks for R ankle AROM, stretching, strengthening, gait training and maybe a trial of US to help with inflammation. Subjective Subjective: R foot pain for a long time. Has had plantar fasciitis surgery in October and still having pain. She had therapy after the surgery for 2-3 months and therapy did not help. Her foot will get better and then it will flare right back up. When she came in for her last appt with PT but her foot felt great. Then a week later her R foot flared back up. She was not on her foot and working it so she started looking for a job and got one and was there for about 2 days cause she was in so much pain that she felt nausea and was in tears. She was back in the boot for 2 weeks ( about a month and 1/2 ago). She was sick for the last month and half with the flu and still off and on sick. He has done steroid injections. She does roll a ball over her foot and it loosened it up but was still painful. The Dr said to go back to therapy. She is getting pain along the dorsal surface of her R foot. The first several steps getting out of bed at night are painful and difficult. It does not wake her but does keep her up at night. The massages really helped but she can not get that same thing at home to help her. Stretching into DF helps a little. Pt reports that she has pain on the R side of her back and down her leg and wondering if her foot pain is coming from her back. Pain R foot pain: Pain Intensity (Out of 10): 3 Objective Objective: Gait: Decrease stance time on the R LE and walks with some wider MICHAEL. R ankle AROM:DF 11 and PF 27, INV 17 and EV 18 L ankle AROM: DF 12 and PF 31 and INV 30 and ev 13 R ankle MMT: 11.4 DF, PF 10.5, INV 6.5, EV 6 L ankle MMT: 14.3 DF, PF 10.5, INV 7.4, EV 4.4 Pt is able to heel and toe raise with holding onto the wall but decreased ROM. Tender R meidal side of plantar fascia Balance/Special Test Scores Lower Extremity Functional Score: 49 Goals Goal 1:: I HEP Goal Time Frame: 6-8 Weeks Goal 2:: Be able to walk with normal gait pattern without antalgic gait Goal Time Frame: 6-8 Weeks Goal 3:: Increase R ankle strength (at the time of the eval: R ankle MMT: 11.4 DF, PF 10.5, INV 6.5, EV 6). Rehabilitation Potential Rehabilitation Potential: Good Anticipated Interventions Patient/Client Instruction: Educate patient on: Condition and Plan of Care For the Purpose of:: To decrease pain, To increase ROM, To improve nutrient delivery to tissue, To improve muscle performance and motor function, To improve ability to perform ADL's, To improve performance and independence with ADL's, To improve gait and locomotor functions, To improve health of tissue, To decrease soft tissue restriction, To increase flexibility/ROM, To improve balance and To improve safety with gait Therapeutic Exercise to Include: Strength training, Balance training, Flexibilty training, Gait and locomotor training, Neuromotor development, Passive ROM and A ctive ROM For the Purpose of:: To decrease pain, To increase ROM, To improve nutrient delivery to tissue, To improve muscle performance and motor function, To improve ability to perform ADL's, To increase tolerance to activity/condition/position, To improve performance and independence with ADL's, To decrease level of supervision to perform tasks, To improve ability of physical actions for home/community/work/leisure, To improve gait and locomotor functions, To improve health of tissue, To decrease soft tissue restriction and To increase flexibility/ROM Functional Training to Include: Gait training For the Purpose of:: To improve gait and locomotor functions Manual Therapy Techniques to Include: Passive ROM and Soft tissue mobilization For the Purpose of:: To decrease pain, To increase ROM, To improve nutrient delivery to tissue, To improve muscle performance and motor function, To increase tolerance to activity/condition/position, To improve performance and independence with ADL's, To improve health of tissue, To decrease soft tissue restriction and To increase flexibility/ROM Ultrasound (thermal/non thermal): Yes For the Purpose of:: To decrease pain, To decrease swelling/inflammation, To increase ROM and To improve nutrient delivery to tissue Text: Thank you for the opportunity to evaluate your patient. For Medicare and Medicare HMO plans, please review the plan of care and approve it. It will need to be FAXED BACK to us at [phone] for Medicare purposes. For Medicare only, by signing this I certify the plan of care. Please let me know if there are questions or concerns regarding this plan of care. Physician Signature: Date:
--- NOTE | 2023-06-09 13:50 | HP.PTDCSUM ---
Discharge Summary D/C summary: It has been my pleasure to treat HENRRY LARA referred by Dr. Bal Yuan DPM, with the diagnosis of R Plantar Fascial Fibromatosis for a total of 8 visit(s). Discharge Date: 06/09/23 Please see the following information for a summary of their discharge status. Subjective Subjective: Pt reports that nothing has really changed. Se is now having issues on the R Lateral side of her R foot. She was walking off her deck on Wednesday and her foot went out from under her and she got a sharp pain and it went off for days and had to use the crutches that night. It is a little better today. Her foot Dr had her to a back x-ray and a nerve test. The nerve test came back with tarsal tunnel and nerve in her R knee. She is thinking that might be the cause of the pain in her foot. She only did the US last visit and thinks it helped a little. She goes to see the foot Dr kelly. She sees the neurologist today. Pain R foot pain: Pain Intensity (Out of 10): 1 R knee pain: Pain Intensity (Out of 10): 1 Overall Improvement % Improvement: 0 Objective Objective/Function: Gait: walks with decrease stance time on the R LE with gait Stairs: up and down recip although much heistancy and get off the R LE descending the step R ankle MMT: 10 DF, PF 9.5, INV 5.2, EV 4.7 (decreased stregth.. pt reports that it hurts to MMT). Goals Goal 1:: I HEP Goal Progress: Goal Met Goal 2:: Be able to walk with normal gait pattern without antalgic gait Goal Progress: Not Progressing Goal 3:: Increase R ankle strength (at the time of the eval: R ankle MMT: 11.4 DF, PF 10.5, INV 6.5, EV 6). Goal Progress: Not Progressing Plan Plan: 2X/ week for 6 weeks for R ankle AROM, stretching, strengthening, gait training and maybe a trial of US to help with inflammation. D/C Information Discharge Comments: DC PT to HEP d/c sentence: If there are questions or concerns regarding this patient's physical therapy, please feel free to call me at [phone]. Thank you for the referral of this patient. Sincerely, Shira Stoner, MPT Balance/Gait/Functional tests Balance/Special Test Scores Lower Extremity Functional Score: 40 Improvement % Improvement: 0
== END 2023-06-09 19:00 | disposition home or self-care (01) ==
LOC: PT 10:00
PROVIDERS: PCP Family Medicine; Referring Provider Podiatrist; Visit Provider Podiatrist
DX: M72.2 Plantar fascial fibromatosis (principal)
CPT/HCPCS: 97035; 97110; 97161; 97530

== ENCOUNTER → 2023-07-29 | Outpatient (CLI) | payer MEDICAID, SELFPAY ==
--- NOTE | 2023-07-29 13:40 | MRI_ITS ---
EXAM: MR RIGHT LOWER EXTREMITY WITHOUT INTRAVENOUS CONTRAST, ANKLE CLINICAL INDICATION: None provided. TECHNIQUE: Multiplanar and multisequence MR images of the right ankle without intravenous contrast. COMPARISON: History: PLANTAR FACIAL FIBROMATOSIS FINDINGS: LIGAMENTS: ANTERIOR TALOFIBULAR: Unremarkable. Intact. POSTERIOR TALOFIBULAR: Unremarkable. Intact. ANTERIOR TIBIOFIBULAR: Unremarkable. Intact. POSTERIOR TIBIOFIBULAR: Unremarkable. Intact. CALCANEOFIBULAR: Unremarkable. Intact. DELTOID: Unremarkable. Intact. SPRING: Unremarkable. Intact. LISFRANC: Unremarkable. Intact. TENDONS: ACHILLES: Unremarkable. Intact. FLEXOR: Unremarkable. Intact. EXTENSOR: Unremarkable. Intact. PERONEAL: Unremarkable. Intact. TIBIALIS ANTERIOR: Unremarkable. Intact. TIBIALIS POSTERIOR: Unremarkable. Intact. MUSCLES: Unremarkable. Normal bulk and signal. FLUID: Unremarkable. No joint effusion. SINUS TARSI: Unremarkable. Normal fat in the sinus tarsi. TARSAL TUNNEL: Unremarkable. PLANTAR FASCIA: Fusiform thickening of the central cord of the plantar aponeurosis with areas of surrounding fluid signal suggesting active plantar fasciitis. CARTILAGE: Unremarkable. No osteochondral lesion. Articular cartilage intact. BONES/JOINTS: Unremarkable. Talar dome intact. No fracture or marrow edema. OTHER SOFT TISSUES: Unremarkable. MRI/Lower Ext Joint Only (Routine) IMPRESSION: Fusiform thickening of the central cord of the plantar aponeurosis with areas of surrounding fluid signal suggesting active plantar fasciitis. Electronically Signed: Fabrizio Baig MD at 23:12 EDT ,
== END | disposition home or self-care (01) ==
PROVIDERS: PCP Family Medicine; Referring Provider Podiatrist; Visit Provider Podiatrist
DX: M72.2 Plantar fascial fibromatosis (principal)
CPT/HCPCS: 73721

== ENCOUNTER → 2023-11-15 | Outpatient (CLI) | payer MEDICAID, SELFPAY ==
--- NOTE | 2023-11-15 15:50 | MRI_ITS ---
HISTORY: Back pain. TECHNIQUE: Multiplanar and multisequence MR images of the lumbar spine were obtained without intravenous contrast. 179 images. COMPARISON: XR 04/28/2023, CT 03/25/2018. FINDINGS: VERTEBRAE: Vertebral body heights maintained. Small hemangioma incidentally noted in the L1 vertebral body. Mild degenerative changes of L4-5 and L5-S1. No significant bone marrow signal abnormality. ALIGNMENT: No anterior or posterior subluxation. CONUS: Normal morphology and position of the conus medullaris at T12-L1. INTERVERTEBRAL DISCS: T12-L1: No significant signal abnormality, posterior disc protrusion, central canal stenosis, or foraminal narrowing based on the sagittal images. L1-2, L2-3, L3-4: No significant signal abnormality, posterior disc protrusion, central canal stenosis, or foraminal narrowing. L4-5: Moderate left paracentral disc protrusion with left L5 nerve root impingement, minimal narrowing of the thecal sac, and mild bilateral foraminal narrowing in combination with facet arthropathy. L5-S1: Mild central disc protrusion with facet arthropathy resulting in mild bilateral foraminal narrowing without significant central canal stenosis. SOFT TISSUES: No paraspinal fluid collection. Retroverted uterus with Essure coils again seen. Incompletely imaged 2.6 cm left adnexal cyst, likely ovarian in origin. MRI/Spine Lumbar (Routine) IMPRESSION: L4-5 left paracentral disc protrusion resulting in left nerve root impingement and mild bilateral foraminal narrowing. L5-S1 central disc protrusion resulting in mild bilateral foraminal narrowing. No significant lumbar spinal canal stenosis. Electronically Signed: Kayli Christensen MD at 10:33 EDT ,
== END | disposition home or self-care (01) ==
LOC: MRI 15:44
PROVIDERS: PCP Family Medicine; Referring Provider Podiatrist; Visit Provider Podiatrist
DX: M54.16 Radiculopathy, lumbar region (principal)
CPT/HCPCS: 72148

== ENCOUNTER 2024-09-04 04:43 | Emergency (ER) | payer MEDICAID, SELFPAY ==
[2024-09-04 04:44] VITALS: BP 156/94; PULSE 88; RESP 18; TEMP 36.7; O2SAT 99; BMI 33.5
--- NOTE | 2024-09-04 04:58 | EX.ED.DYSGE1 ---
HPI History of Present Illness Chief Complaint: Other, Pain/Inj Detail of Chief Complaint: rash Informant: patient Narrative Narrative: 44-year-old female presents with an inframammary itchy, burning rash for 3 days. She states she has used nystatin powder on this before when it has occurred, as it has been diagnosed as a yeast infection in the past, she states usually clears up within 2 days of doing that. However since this has been going on for 3 and was bothering her tonight, she presents for evaluation. She denies any systemic symptoms. She denies being a diabetic. [facility] Medical History Edentulous Anxiety Arthritis High cholesterol Gastric reflux Shortness of breath on exertion Smoker History of edema History of stress test History of cyst of breast Vertigo Encounter for screening for COVID-19 Home Medications ?Medication ?Instructions ?Recorded ?Last Taken ?Type cetirizine 10 mg tablet 10 mg PO DAILY 06/13/22 10/23/22 History fluoxetine 10 mg capsule 10 mg PO DAILY 05/02/23 Unknown History fluoxetine 20 mg capsule 20 mg PO DAILY 05/02/23 Unknown History hydroxyzine pamoate 25 mg capsule 25 mg PO TID 05/02/23 Unknown History diclofenac potassium 50 mg tablet 50 mg PO BID 12/27/23 Unknown History omeprazole 40 mg capsule,delayed 40 mg PO QDAY 12/27/23 Unknown History release pregabalin 50 mg capsule 50 mg PO TID 12/27/23 Unknown History hydroxyzine pamoate 50 mg capsule 50 mg PO BID 09/04/24 Unknown History nystatin 100,000 unit/gram topical 1 applic topical 4X/DAY 09/04/24 Unknown History powder nystatin-triamcinolone 100,000 1 applic topical BID 1 week #15 09/04/24 Unknown Rx unit/g-0.1 % topical cream grams Allergy/AdvReac Type Severity Reaction Status Date / Time tioconazole (From Vagistat-1) Allergy Swelling Verified 09/04/24 04:43 Family History Other Angina at rest Bipolar 1 disorder Depression Heart disease Surgical History H/O foot surgery History of hernia surgery History of decompression of ulnar nerve History of carpal tunnel release of both wrists Social History Smoking Status: Current every day smoker tobacco type: cigarettes alcohol intake: never substance use type: does not use ROS ROS ED Constitutional Constitutional ED: Denies chills or fever(s) Eyes Eyes: Denies change in vision or diplopia ENT ENT ED: Denies rhinorrhea or sore throat Cardiovascular Cardiovascular: Denies chest pain or palpitations Respiratory/Chest Respiratory/Chest: Denies cough or dyspnea Gastrointestinal Gastrointestinal: Denies abdominal pain, diarrhea, nausea or vomiting Genitourinary Genitourinary ED: Denies dysuria or hematuria Musculoskeletal Musculoskeletal: Denies back pain or neck pain Integumentary Reports rash; Denies abscess Neurologic Neurologic: Denies headache(s), paresthesias or weakness Psychiatric Psychiatric: Denies suicidal thoughts EXAM Physical Exam Const Vital Signs: 09/04/24 04:44 09/04/24 04:44 Temperature 98.1 F Temperature Source Oral Pulse Rate 88 Respiratory Rate 18 Respiratory Effort Normal Respiratory Pattern Normal Blood Pressure 156/94 H Blood Pressure Mean 114 Pulse Ox 99 Oxygen Delivery Method Room Air Positive well nourished, well developed and obese General Appearance ED: well developed and NAD Nutritional Appearance: obese Eyes PERRL and EOMs intact bilaterally Neck full ROM and supple Chest Wall Chest Narrative: Inframammary bilateral intertriginous erythematous rash, it is dry not moist, it is blanching erythema, there is no scaling or scabbing, no petechia no bullae, no satellite lesions. Mildly tender patient states it [place] when we touch it. Resp normal respiratory effort Neuro oriented x3, CN's II-XII intact bilaterally and no sensory deficits noted Sensorium / Orientation: awake and alert Motor Exam: strength 5/5 throughout MDM MDM MDM Narrative Medical decision making narrative: Possible this is cutaneous candidiasis intertriginous below her breast, however does not have that classic appearance. May be some other type of heat rash, contact dermatitis, or it could be fungal. I am prescribing her nystatin/triamcinolone cream to try and advised to follow-up she is comfortable with that plan. Discharge Plan Triage Chief Complaint: Other, Pain/Inj ED Provider: Logan Yañez Dx/Rx/DC Orders Clinical Impression: Intertriginous dermatitis associated with moisture Instructions: ED Erythema Prescriptions: New nystatin-triamcinolone 100,000-0.1 unit/g-% cream 1 applic topical BID 7 Days Qty: 15 0RF No Action omeprazole 40 mg capsule,delayed release(DR/EC) 40 mg PO QDAY pregabalin 50 mg capsule 50 mg PO TID diclofenac potassium 50 mg tablet 50 mg PO BID cetirizine 10 mg tablet 10 mg PO DAILY Patient Comments: TAKE 1 TABLET BY MOUTH DAILY fluoxetine 10 mg capsule 10 mg PO DAILY fluoxetine 20 mg capsule 20 mg PO DAILY hydroxyzine pamoate 25 mg capsule 25 mg PO TID hydroxyzine pamoate 50 mg capsule 50 mg PO BID nystatin 100,000 unit/gram powder 1 applic topical 4X/DAY Primary Care Provider: Wilver Milton Referrals: Wilver Milton MD [Primary Care Provider] - 3-5 Days if not improving Print Language: Bulgarian Disposition Disposition: Home, Self Care
[2024-09-04 05:07] VITALS: BP 155/99; PULSE 85; RESP 18; TEMP 36.7; O2SAT 100
--- OUTSIDE RECORDS SUMMARY | 2024-09-04 05:10 | XMS RPT_ITS | CCD ---
Author Organization [facility] Care Team Providers Care Parks And Re[employer] Manager Name Role Phone Natalya Griffith LPN Unavailable Unavailable Natalya Griffith LPN Unavailable Unavailable Wilver Jones MD Primary Care Provider Wilver Jones MD Primary Care Provider Dr. Wilver Jones Primary Care Provider Dr. Wilver Jones Referring Provider JOSE DANIEL Vergara Attending Provider Wilver Jones MD Primary Care Provider WILVER JONES Primary Care Unavailable PROVIDER, UNKNOWN Referring Unavailable PROVIDER, UNKNOWN Referring Unavailable WILVER JONES Primary Care Unavailable Dr. Wilver Jones Primary Care Provider Dr. Bal Yuan Referring Provider Dr. Bal Yuan Other Provider Dr. Cam Hall Attending Provider Wilver Jones MD Primary Care Provider WILVER JONES MD Primary Care Unavailable DREA SANDOVAL MD Attending Unavailable Marta PRODUCTION MAINTENANCE MECHANICKatherine WILEY Unavailable Clover Martin APRN.CNP Unavailable [phone] WILVER JONES Primary Care Unavailable LORENA WARNER Attending Unavailable WILVER JONES Primary Care Unavailable WILVER JONES Primary Care Unavailable WILVER JONES Attending Unavailable WILVER JONES Primary Care Unavailable WILVER JONES Primary Care Unavailable KATHERINE LOZANO Attending Unavailable WILVER JONES Primary Care Unavailable WILVER JONES Attending Unavailable Bellflower, Wilver Primary Care Unavailable Yoan, Wilver Referring Unavailable Hamzah Nicolas Attending Unavailable Yang Centeno Attending Unavailable Yoan, Wilver Primary Care Unavailable Bellflower, Wilver Referring Unavailable Bellflower, Wilver Primary Care Unavailable Temo Goss NP Attending Unavailable Bellflower, Wilver Primary Care Unavailable Bal Yuan Attending Unavailable Bal Yuan Referring Unavailable Bellflower, Wilver Primary Care Unavailable Bal Yuan Attending Unavailable Bal Yuan Referring Unavailable Bellflower, Wilver Primary Care Unavailable Bal Yuan Attending Unavailable Bal Yuan Referring Unavailable Allergies Allergy Classification Reported Allergen(s) Allergy Type Date of Onset Reaction(s) Facility [facility] Antifung[facility] (1 source) tioconazole Drug Allergy 01-30-2005 [facility] (20 sources) tioconazole; Translations: [TIOCONAZOLE] Drug Allergy 01-30-2005 [facility] Work Phone: (1 source) tioconazole Drug Allergy 06-04-2024 [facility] Rep[facility] Medications Current Medications Medication Drug Class(es) Dates Sig (Normalized) Sig (Original) acetaminophen 325 mg / oxyCODONE hydrochloride 5 mg oral tablet (7 sources) Opioid Agonist Start: 12-20-2021 take 1 tablet by mouth every six hours Oxycodone-Acetami nophen (Percocet) 5-325 mg tablet Active 1 TABLET PO EVERY 6 HOURS 12 3 December 20, 2021 Start: 10-08-2016 PERCOCET 10-32 5 MG TABS take as directed OXYCODONE-ACETAMINOPHEN [id number] Natalya Griffith LPN Start: 10-08-2016 PERCOCET 10-32 5 MG TABS take as directed OXYCODONE-ACETAMINOPHEN [id number] Natalya Griffith LPN End: 12-25-2022 oxyCODONE-acetaminophen (PER COCET) 5-325 mg tablet Take by mouth every 8 hours as needed for pain. 0 12/25/2022 Discontinued Comment on above: Take by mouth every 8 hours as needed for pain. amoxicillin 875 mg oral tablet (1 source) Penicillin-class Antibacterial Start: End: take 1 tablet by mouth twice daily amoxicillin (AMOXIL) 875 mg tablet Take 1 tablet by mouth two times a day for 7 days. 14 tablet 0 04/08/2023 04/15/2023 Active Comment on above: Take 1 tablet by crist[facility]bal two times a day for 7 days. cephalexin 500 mg oral capsule (2 sources) Cephalosporin Antibacterial Start: End: take 1 capsule by mouth twice daily cephALEXin (KEFLEX) 500 mg capsule Take 1 capsule by mouth two times a day for 7 days. 14 capsule 0 08/02/2023 08/09/2023 Active cyclobenzaprine hydrochloride 10 mg oral tablet (2 sources) Muscle Relaxant Start: take 10 mg by mouth twice daily Cyclobenzaprine Active 10 MG PO TWICE A DAY July 16, 2022 12:00am diclofenac potassium 50 mg oral tablet (9 sources) Nonsteroidal Anti-inflammatory Drug Start: diclofenac potassium (CATAFLAM) 50 mg tablet 09/07/2023 Active famotidine 10 mg oral tablet (20 sources) Histamine-2 Receptor Antagonist Start: take 1 tablet by mouth once daily before mealtime Famotidine (Pepcid Ac) 10 mg Tablet Active 10 MG PO DAILY June 13, 2022 12:00am Start: 04-07-2022 End: 01-13-2023 take 1 tablet by mouth twice daily famotidine (PEPCID) 20 mg tablet Take 1 tablet by mouth twice daily. 60 tablet 11 04/07/2022 01/13/2023 Discontinued Comment on above: Take 1 tablet by crist[facility]bal twice daily. fluconazole 150 mg oral tablet (2 sources) Azole Antifungal Start: 3 End: 3 take 1 tablet by mouth once daily fluconazole (DIFLUCAN) 150 mg tablet Take 1 tablet by mouth once daily for 1 day. 1 tablet 0 05/16/2022 05/17/2022 Active Start: 08-27-2021 End: 08-27-2021 fluconazole (DIFLUCAN) 150 m g tablet Take 1 tablet by mouth one time only for 1 dose. Repeat in 3 days as needed. 2 tablet 0 08/27/2021 08/27/2021 Active Comment on above: Take 1 tablet by crist[facility]bal one time only for 1 dose. Repeat in 3 days as needed. Take 1 tablet by crist[facility]bal once daily for 1 day. FLUoxetine 20 mg oral capsule (20 sources) Serotonin Reuptake Inhibitor Start: 06-30-2023 take 1 capsule by mouth once daily FLUoxetine (PROZAC) 20 mg capsule Take 20 mg by mouth once daily. 06/30/2023 Active Start: 05-02-2023 take 1 capsule by mo [facility] once daily FLUoxetine (PROZAC) 10 mg capsule Take 10 mg by mouth once daily. 05/02/2023 Active Start: 05-02-2023 take 20 mg by mouth once daily Fluoxetine Active 20 MG PO DAILY May 02, 2023 12:00am Start: 10-16-2022 End: 07-19-2023 take 3 capsules by mouth once daily FLUoxetine (PROZAC) 10 mg capsule Take 30 mg by mouth once daily. 10/16/2022 07/19/2023 Discontinued Start: 10-16-2022 FLUoxetine (HI OZAC) 10 mg capsule Take one capsule for six days then increase to take two capsules daily 0 10/16/2022 Active Comment on above: Take one capsule for six days then increase to take two capsules daily Take 30 mg by mouth once daily. hydrOXYzine pamoate 25 mg oral capsule (20 sources) Antihistamine Start: take 25 mg by mouth three times daily Hydroxyzine Pamoate Active 25 MG PO THREE TIMES A DAY May 02, 2023 12:00am Start: 10-08-2022 take 1 capsule by mo [facility] every twelve hours as needed hydrOXYzine pamoate (VISTARIL) 25 mg capsule Take 25 mg by mouth two times a day as needed for anxiety. 10/08/2022 Active Comment on above: Take 25 mg by mouth two times a day as needed for anxiety. levonorgestrel 0.264647 mg/hr intrauterine system (20 sources) Progestin, Progestin-containing Intrauterine Device Start: 08-01-19 End: 07-30-19 levonorgestrel (MIRENA) 21 mcg/24 hours (8 yrs) 52 mg IUD Indications: Encounter for IUD insertion 1 Each by INTRAUTERINE route as directed. 1 Each 07/31/2022 07/30/2027 Active Comment on above: 1 Each by INTRAUTERI NE route as directed. naproxen 500 mg delayed release oral tablet (2 sources) Nonsteroidal Anti-inflammatory Drug Start: 07-17-19 take 500 mg by mouth twice daily Naproxen Active 500 MG PO TWICE A DAY 14 July 16, 2022 12:00am nirmatrelvir tablet 300 mg (150 mg x 2) and ritonavir tablet 100 mg in a dose pack (PAXLOVID) (1 source) Start: 04-04-19 End: 04-09-19 nirmatrelvir tablet 300 mg (150 mg x 2) and ritonavir tablet 100 mg in a dose pack (PAXLOVID) Indications: COVID-19 Administer TWO pink nirmatrelvir 150 mg tablets and ONE white ritonavir 100 mg tablet for a total of three tablets twice daily. 30 tablet 04/04/2024 04/09/2024 Active nystatin 100 unt/mg topical powder (20 sources) Polyene Antifungal Start: 09-02-19 End: 03-23-19 nystatin (NYSTOP) powder Indications: Intertrigo Apply 1 application to affected area four times daily. 60 g 2 03/23/2024 Active Start: 06-22-2022 End: 09-01-2022 nystatin (MYCOSTATIN) cream Indications: Candidiasis Apply 1 application to affected area twice daily. 45 g 0 06/22/2022 09/01/2022 Discontinued Comment on above: Apply 1 application to affected area twice daily. Apply 1 application to affected area four times daily. omeprazole 40 mg delayed release oral capsule (20 sources) Proton Pump Inhibitor Start: End: take 1 capsule by mouth once daily omeprazole (PRILOSEC) 40 mg capsule Take 1 capsule by mouth once daily. 30 capsule 3 05/08/2024 09/05/2024 Active Start: 05-02-2023 take 20 mg by mouth once daily Omeprazole Active 20 MG PO DAILY May 02, 2023 12:00am Start: 03-02-2023 End: 04-01-2023 take 1 capsule by mouth once daily omeprazole (PRILOSEC) 40 mg capsule Take 1 capsule by mouth once daily. 30 capsule 0 03/02/2023 Active Start: 11-03-2022 End: 03-23-2023 take 1 capsule by mouth once daily before breakfast omeprazole (PRILOSEC) 20 mg capsule Indications: GERD without esophagitis Take 1 capsule by mouth daily before breakfast. 1/2 hr before meal. 30 capsule 2 11/03/2022 03/23/2023 Discontinued (Duplicate Entry) Comment on above: Take 1 capsule by mo uth daily before breakfast. 1/2 hr before meal. Take 1 capsule by mo uth once daily. oseltamivir 75 mg oral capsule (2 sources) Neuraminidase Inhibitor Start: 4 End: 4 take 1 capsule by mouth twice daily oseltamivir (TAMIFLU) 75 mg capsule Take 1 capsule by mouth two times a day for 5 days. 10 capsule 0 03/26/2023 03/31/2023 Active Comment on above: Take 1 capsule by mo uth two times a day for 5 days. pregabalin 50 mg oral capsule (10 sources) Start: 4 take 1 capsule by mouth every twelve hours pregabalin (LYRICA) 50 mg capsule Take 1 capsule by mouth every 12 hours. 08/03/2023 Active Start: 08-23-2020 End: 08-20-2021 take 1 capsule by mouth twice daily pregabalin (LYRICA) 150 mg capsule Indications: Lumbar radiculopathy , Degeneration of lumbar or lumbosacral intervertebral disc Take 1 capsule by mouth twice daily for 60 days. 60 capsule 1 08/23/2020 08/20/2021 Discontinued (Other) Comment on above: Take 1 capsule by mo ut twice daily for 60 days. sulfamethoxazole 800 mg / trimethoprim 160 mg oral tablet (2 sources) Dihydrofolate Reductase Inhibitor Antibacterial, Sulfonamide Antimicrobial Start: 3 End: 3 take 1 tablet by mouth twice daily sulfamethoxazo le-trimethopri m (BACTRIM DS) 800-160 mg per tablet Take 1 tablet by mouth twice daily for 3 days. 6 tablet 0 05/16/2022 05/19/2022 Active Comment on above: [facility] Completed/Discontinued Medications Medication Drug Class(es) Dates Sig (Normalized) Sig (Original) acetaminophen 325 mg / HYDROcodone bitartrate 5 mg oral tablet (20 sources) Opioid Agonist Start: 10-02-2018 End: 10-05-2018 take 1 tablet by mouth every six hours as needed Hydrocodone-Acetami nophen Discontinued 1 TABLET PO EVERY 6 HOURS NEEDED 12 October 02, 2018 October 05, 2018 12:07am Start: 03-07-2018 End: 03-09-2018 take 1 tablet by mouth every four hours as needed Hydrocodone-Acetaminophen Discontinued 1 TABLET PO EVERY 4 HOURS NEEDED 10 2 March 07, 2018 1:00am March 09, 2018 1:09am aspirin 81 mg delayed release oral tablet (11 sources) Platelet Aggregation Inhibitor, Nonsteroidal Anti-inflammatory Drug Start: 10-23-2022 End: 05-02-2023 take 162 mg by mouth once daily Aspirin Discontinued 162 MG PO DAILY October 23, 2022 12:00am May 02, 2023 9:34am End: 01-13-2023 take 1 tablet by mouth once daily aspirin, enteric coated (ECOTRIN LOW STRENGTH) 81 mg EC tablet Take 81 mg by mouth once daily. 01/13/2023 Discontinued Comment on above: Take 81 mg by mouth once daily. benzonatate 100 mg oral capsule (2 sources) Non-narcotic Antitussive Start: 08-29-19 End: 08-21-19 take 1 capsule by mouth three times daily as needed for cough benzonatate (TESSALON PERLES) 100 mg capsule Indications: Viral syndrome Take 1 capsule by mouth three times daily as needed for Cough. 21 capsule 0 08/29/2019 08/20/2021 Discontinued (Other) Comment on above: Take 1 capsule by [facility] three times daily as needed for Cough. busPIRone hydrochloride 5 mg oral tablet (4 sources) Start: 08-21-19 End: 01-10-20 take 1-2 tablets by mouth three times daily as needed busPIRone (BUSPAR) 5 mg tablet Indications: ENRIKE (generalized anxiety disorder) Take 1-2 tablets by mouth three times daily as needed. 90 tablet 0 08/20/2021 01/09/2022 Discontinued Comment on above: Take 1-2 tablets by mouth three times daily as needed. cetirizine hydrochloride 10 mg oral tablet (20 sources) Histamine-1 Receptor Antagonist Start: 04-01-19 End: 04-04-19 take 1 tablet by mouth once daily, then take 1 tablet by mouth once daily cetirizine (ZYRTEC) 10 mg tablet Indications: Dermatographic urticaria , Itching Take 1 tablet by mouth once daily. Take one pill by mouth daily. 30 tablet 5 09/03/2023 04/04/2024 Discontinued (Other) Start: 09-29-2021 End: 04-01-2022 take 1 tablet by mouth twice daily, then take 1 tablet by mouth once daily cetirizine (ZYRTEC) 10 mg tablet Take one pill twice daily X 1 week; then one pill by mouth daily. 37 tablet 3 09/29/2021 04/01/2022 Discontinued Comment on above: Take one pill twice daily X 1 week; then one pill by mouth daily. Take 1 tablet by crist[facility]bal once daily. Take one pill by mouth daily. 24 hr desvenlafaxine succinate 50 mg extended release oral tablet (8 sources) Serotonin and Norepinephrine Reuptake Inhibitor Start: End: take 1 tablet by mouth once daily desvenlafaxine ER (PRISTIQ) 50 mg 24 hr tablet Take 1 tablet by mouth once daily. 30 tablet 5 06/04/2022 07/15/2022 Discontinued Comment on above: Take 1 tablet by crist[facility]bal once daily. diazePAM 5 mg oral tablet (3 sources) Benzodiazepine Start: End: take 1 tablet by mouth every six hours as needed diazePAM (VALIUM) 5 mg tablet Indications: Chronic vertigo , Tinnitus of right ear Take 1 tablet by mouth every 6 hours as needed for up to 7 days. 15 tablet 0 01/23/2022 01/30/2022 Comment on above: Take 1 tablet by crist[facility]bal every 6 hours as needed for up to 7 days. DIPHENHYDRAMINE HCL CAPS (2 sources) Histamine-1 Receptor Antagonist Start: BENADRYL ALLERGY CAPS take as directed DIPHENHYDRAMINE HCL CAPS [id number] Natalya Griffith LPN Start: 10-08-2016 BENADRYL ALLER GY CAPS take as directed DIPHENHYDRAMINE HCL CAPS [id number] Natalya Griffith LPN doxycycline monohydrate 100 mg oral tablet (2 sources) Tetracycline-class Drug Start: 05-07-2023 End: 05-17-2023 take 1 tablet by mouth twice daily doxycycline monohydrate 100 mg tablet Indications: Lymphadenopathy, cervical , History of otitis , Bacterial sinusitis Take 1 tablet by mouth two times a day for 10 days. 20 tablet 0 05/07/2023 05/17/2023 Comment on above: Take 1 tablet by [facility] two times a day for 10 days. DULoxetine 20 mg delayed release oral capsule (3 sources) Serotonin and Norepinephrine Reuptake Inhibitor Start: 05-28-2022 End: 06-27-2022 take 1 capsule by mouth once daily DULoxetine (CYMBALTA) 20 mg capsule Indications: Anxiety with depression Take 1 capsule by mouth once daily. 30 capsule 2 05/28/2022 06/04/2022 Discontinued Comment on above: Take 1 capsule by [facility] once daily. ergocalciferol 1.25 mg oral capsule (20 sources) Provitamin D2 Compound Start: 06-24-2022 End: 07-19-2023 take 1 capsule by mouth every week ergocalciferol 50,000 unit capsule (VITAMIN D2, DRISDOL) Indications: Vitamin D deficiency Take 1 capsule by mouth one time a week. 12 capsule 3 06/24/2022 01/13/2023 Discontinued Comment on above: Take 1 capsule by [facility] one time a week. fluticasone propionate 0.05 mg/actuat metered dose nasal spray (20 sources) Corticosteroid Start: 04-01-2022 End: 09-08-2022 take 2 spray(s) by mouth once daily fluticasone (FLONASE) 50 mcg/actuation nasal spray Indications: Eustachian tube disorder, left Use 2 Sprays in each nostril once daily. Rinse mouth after use. 1 Each 3 04/01/2022 09/08/2022 Discontinued Comment on above: Use 2 Sprays in each nostril once daily. Rinse mouth after use. hydroCHLOROthiazide 12.5 mg oral capsule (4 sources) Thiazide Diuretic Start: 01-23-2022 End: 02-04-2022 take 1 capsule by mouth once daily hydroCHLOROthiazide (HYDRODIURIL, ESIDRIX) 12.5 mg capsule Indications: Tinnitus of right ear Take 1 capsule by mouth once daily. 30 capsule 12 01/23/2022 02/04/2022 Discontinued Comment on above: Take 1 capsule by [facility] once daily. ibuprofen 200 mg oral tablet (4 sources) Nonsteroidal Anti-inflammatory Drug Start: 10-08-2016 ADDAPRIN 200 MG TABS take as directed IBUPROFEN [id number] Natalya Canales Pat NUNEZ End: 08-20-2021 take 4 tablets by mouth every six hours as needed ibuprofen (MOTRIN) 200 mg tablet Take 800 mg by mouth every 6 hours as needed for Pain. 0 08/20/2021 Discontinued (Other) Comment on above: Take 800 mg by mouth every 6 hours as needed for Pain. meclizine hydrochloride 12.5 mg oral tablet (17 sources) Antiemetic Start: 09-15-2023 End: 04-04-2024 meclizine (ANTIVERT) 12.5 mg tab Indications: Dizziness Take 1-2 tablets every six hours as needed for dizziness 60 tablet 1 09/15/2023 04/04/2024 Discontinued (Other) Start: 01-02-2022 End: 04-07-2022 take 1 tablet by mouth three times daily meclizine 25 mg chewable tablet(s) Take 25 mg by mouth three times daily. 0 01/02/2022 04/07/2022 Discontinued Comment on above: Take 25 mg by mouth three times daily. miSOPROStol 0.2 mg oral tablet (7 sources) Prostaglandin E1 Analog Start: 07-16-19 End: 09-09-19 miSOPROStol (CYTOTEC) 200 mcg tablet Indications: Dysmenorrhea , Menstrual migraine without status migrainosus, not intractable Insert 2 tablets vaginally night prior to IUD insertion and 2 tablets morning of procedure. Each dose should be in vagina for 6-8 hours. 4 tablet 0 07/15/2022 09/08/2022 Discontinued Comment on above: Insert 2 tablets vag inally night prior to IUD insertion and 2 tablets morning of procedure. Each dose should be in vagina for 6-8 hours. oxyCODONE hydrochloride 5 mg oral capsule (6 sources) Opioid Agonist Start: 10-24-19 End: 05-02-19 take 5 mg by mouth every six hours Oxycodone Discontinued 5 MG PO EVERY 6 HOURS 28 7 October 23, 2022 May 02, 2023 9:32am predniSONE 20 mg oral tablet (3 sources) Start: 06-27-19 End: 07-16-19 take 1 tablet by mouth once daily predniSONE (DELTASONE) 20 mg tablet Take 1 tablet by mouth once daily. 5 tablet 0 06/26/2022 07/15/2022 Discontinued Comment on above: Take 1 tablet by crist[facility]bal th once daily. regadenoson (LEXISCAN) 0.4 mg/5 mL syrg (1 source) Start: 06-27-19 End: 06-27-19 regadenoson (LEXISCAN) 0.4 mg/5 mL syrg Indications: Other chest pain Inject 5 mL intravenously one time only for 1 dose. Give IV push over 10 seconds and follow with 5 ml of normal saline 5 mL 0 06/26/2022 06/26/2022 Comment on above: Inject 5 mL intraven ously one time only for 1 dose. Give IV push over 10 seconds and follow with 5 ml of normal saline regadenoson 0.4 mg injection (LEXISCAN) (1 source) Start: 07-23-19 End: 07-23-19 regadenoson 0.4 mg injection (LEXISCAN) traZODone hydrochloride 50 mg oral tablet (15 sources) Serotonin Reuptake Inhibitor Start: 10-17-19 End: 05-02-19 take 25 mg by mouth at bedtime as needed Trazodone Discontinued 25 MG PO AT BEDTIME NEEDED October 16, 2022 12:00am May 02, 2023 9:32am Start: 10-08-2022 End: 01-13-2023 traZODone (DESYREL) 50 mg ta blet as needed. 10/08/2022 01/13/2023 Discontinued Comment on above: as needed. zolpidem tartrate 5 mg oral tablet (1 source) gamma-Aminobutyri c Acid-ergic Agonist Start: 06-30-2019 End: 08-20-2021 take 1 tablet by mouth at bedtime as needed zolpidem (AMBIEN) 5 mg tablet Indications: Primary insomnia Take 1 tablet by mouth at bedtime as needed (For insomnia) for up to 14 days. 14 Each 0 06/30/2019 08/20/2021 Discontinued (Other) Comment on above: Take 1 tablet by crist[facility]bal th at bedtime as needed (For insomnia) for up to 14 days. Problems Active Problems Problem Classification Problem Date Documented Da te Episodic/Chronic Allergic reactions (20 sources) Contact dermatitis; Translations: [Dermatographic urticaria] Onset: 7 10-08-2016 Episodic Anxiety disorders (20 sources) Generalized anxiety disorder; Translations: [Generalized anxiety disorder] Onset: Chronic Contraceptive and procreative management (1 source) Intrauterine contraceptive device in situ; Translations: [Encounter for routine checking of intrauterine contraceptive device] 09-01-2022 Episodic Diabetes mellitus without complication (1 source) Hyperglycemia; Translations: [Hyperglycemia, unspecified] Episodic Disorders of lipid metabolism (20 sources) Mixed hyperlipidemia; Translations: [Mixed hyperlipidemia] Onset: 8 09-15-2017 Chronic Esophageal disorders (20 sources) Gastroesophageal reflux disease; Translations: [Gastro-esophageal reflux disease without esophagitis] Onset: 8 01-07-2018 Chronic Gastrointestinal hemorrhage (1 source) Rectal hemorrhage; Translations: [Hemorrhage of anus and rectum] 12-26-2022 Episodic Genitourinary symptoms and ill-defined conditions (2 sources) Dysuria; Translations: [Dysuria] Episodic Headache; including migraine (1 source) Menstrual migraine; Translations: [Menstrual migraine, not intractable, without status migrainosus] Chronic Headache; including migraine (12 sources) Headache; Translations: [Headache] 05-21-2021 Episodic Immunizations and screening for infectious disease (20 sources) Patient encounter status; Translations: [Encounter for screening for COVID-19] Episodic Inflammation; infection of eye (except that caused by tuberculosis or sexually transmitteddisease) (12 sources) External hordeolum; Translations: [Hordeolum externum unspecified eye, unspecified eyelid] 08-17-2020 Episodic Inflammatory diseases of female pelvic organs (12 sources) Abscess of labia; Translations: [Abscess of vulva] 03-04-2016 Episodic Lymphadenitis (17 sources) Anterior cervical lymphadenopathy; Translations: [Localized enlarged lymph nodes] 12-28-2021 Episodic Menstrual disorders (2 sources) Dysmenorrhea; Translations: [Dysmenorrhea, unspecified] Chronic Mycoses (1 source) Candidiasis; Translations: [Candidiasis, unspecified] Episodic Nonmalignant breast conditions (20 sources) Fibroadenosis of breast; 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] 11-23-2007 Chronic Nonmalignant breast conditions (1 source) Breast tenderness; Translations: [Mastodynia] 09-01-2022 Episodic Nonspecific chest pain (12 sources) Acute chest pain; Translations: [Chest pain, unspecified] Onset: 3 06-13-2022 Episodic Nutritional deficiencies (5 sources) Vitamin D deficiency; Translations: [Vitamin D deficiency, unspecified] Onset: 4 Chronic Open wounds of extremities (12 sources) Puncture wound of middle finger of left hand; Translations: [Puncture wound with foreign body of left middle finger without damage to nail, initial encounter] 01-27-2019 Episodic Open wounds of extremities (12 sources) Laceration of right index finger; Translations: [Laceration without foreign body of right index finger without damage to nail, initial encounter] 08-25-2020 Episodic Other circulatory disease (1 source) Elevated blood-pressure reading without diagnosis of hypertension; Translations: [Elevated blood-pressure reading, without diagnosis of hypertension] Episodic Other connective tissue disease (1 source) Muscle pain; Translations: [Myalgia, unspecified site] Episodic Other connective tissue disease (2 sources) Plantar fasciitis; Translations: [Plantar fascial fibromatosis] Episodic Other connective tissue disease (6 sources) Plantar fascial fibromatosis; Translations: [Plantar fascial fibromatosis] 10-23-2022 Episodic Other connective tissue disease (2 sources) Pain in both feet; Translations: [Pain in right foot] 03-23-2023 Episodic Other connective tissue disease (2 sources) Pain in right foot; Translations: [Pain in right foot] 05-07-2023 Episodic Other ear and sense organ disorders (1 source) Tinnitus of right ear; Translations: [Tinnitus, right ear] Episodic Other ear and sense organ disorders (3 sources) Impacted cerumen of bilateral ears; Translations: [Impacted cerumen, bilateral] Episodic Other female genital disorders (1 source) Pruritus of vagina; Translations: [Other specified noninflammatory disorders of vagina] Episodic Other gastrointestinal disorders (1 source) Diarrhea; Translations: [Diarrhea, unspecified] 12-25-2022 Episodic Other inflammatory condition of skin (4 sources) Itching ; Translations: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 (ZYRTEC) 10 mg tablet Take 1 tablet by mouth once daily. Take one pill by mouth daily. - FLUoxetine (PROZAC) 10 mg capsule Take 30 mg by mouth once daily. - hydrOXYzine pamoate (VISTARIL) 25 mg capsule Take 25 mg by mouth two times a day as needed for anxiety. - nystatin (NYSTOP) powder Apply 1 application to affected area four times daily. - levonorgestrel (MIRENA) 21 mcg/24 hours (8 yrs) 52 mg IUD 1 Each by INTRAUTERINE route as directed. Problem List As Of Date 06/09/2023 Noted Resolved ABNL FINDINGS ON SCREEN [O28.9] 06/06/2007 10/26/2007 SUPRF HIGH RISK NEC [O09.899] 09/03/2007 10/26/2007 ABDOMINAL PAIN RUQ [R10.11] 09/03/2007 10/26/2007 Bipolar disorder, unspecified (HCC) [F31.9] 11/10/2007 05/28/2022 FIBROADENOSIS OF BREAST [N60.29] SEBACEOUS CYST [L72.3] 12/01/2007 Chronic pain of left knee [M25.562, G89.29] 01/18/2017 Mixed hyperlipidemia [E78.2] 09/15/2017 Carpal tunnel syndrome of left wrist [G56.02] 12/21/2017 Gastroesophageal reflux disease [K21.9] 01/07/2018 Carpal tunnel syndrome of right wrist [G56.01] 10/31/2018 Ulnar neuropathy at wrist, 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 PT D/C Summary (1) [facility] [place] [address] / REHABILITATION SERVICES DISCHARGE SUMMARY MR#: [id number] Acct: [id number] Name: LENA CHAPARRO Rep #: [id number] : 1980 43 From: Shira DIEZ Referring Dr.: RADHA Yuan Status: REG RCR Insurance: [facility] [employer] PAY INSURANCE Discharge Summary D/C summary: It has been my pleasure to treat LENA CHAPARRO referred by Dr. Bal Yuan DPM, with the diagnosis of R Plantar Fascial Fibromatosis for a total of 8 visit(s). Discharge Date: 06/09/23 Please see the following information for a summary of their discharge status. Subjective Subjective: Pt reports that nothing has really changed. Se is now having issues on the R Lateral side of her R foot. She was walking off her deck on Wednesday and her foot went out from under her and she got a sharp pain and it went off for days and had to use the crutches that night. It is a little better today. Her foot Dr had her to a back x-ray and a nerve test. The nerve test came back with tarsal tunnel and nerve in her R knee. She is thinking that might be the cause of the pain in her foot. She only did the US last visit and thinks it helped a little. She goes to see the foot Dr kelly. She sees the neurologist today. Pain R foot pain: Pain Intensity (Out of 10): 1 R knee pain: Pain Intensity (Out of 10): 1 Overall Improvement % Improvement: 0 Objective Objective/Function: Gait: walks with decrease stance time on the R LE with gait Stairs: up and down recip although much heistancy and get off the R LE descending the step R ankle MMT: 10 DF, PF 9.5, INV 5.2, EV 4.7 (decreased stregth.. pt reports that it hurts to MMT). Goals Goal 1:: I HEP Goal Progress: Goal Met Goal 2:: Be able to walk with normal gait pattern without antalgic gait Goal Progress: Not Progressing Goal 3:: Increase R ankle strength (at the time of the eval: R ankle MMT: 11.4 DF, PF 10.5, INV 6.5, EV 6). Goal Progress: Not Progressing Plan Plan: 2X/ week for 6 weeks for R ankle AROM, stretching, strengthening, gait training and maybe a trial of US to help with inflammation. D/C Information Discharge Comments: DC PT to HEP d/c sentence: If there are questions or concerns regarding this patient's physical therapy, please feel free to call me at [phone]. Thank you for the referral of this patient. Sincerely, Shira Echavarria, MPT Balance/Gait/Functional tests Balance/Special Test Scores Lower Extremity Functional Score: 40 Improvement % Improvement: 0 06/09/23 1350 CC: DPKj Yuan; Dr. Wilver Jones MD Signed Normal [facility] Absolute lymphocyte countOrd ered By: Yamila Adamsaubrey on 05-02-2023 Lymphocytes Auto (Unsp spec) [#/Vol] 3.31 10*3/uL 0.83-4.51 [facility] Automated lymphocyte count a s percentage of total leukocytesOrdered By: Remus Bryanaubrey on 05-02-2023 Lymphocytes/100 WBC Auto (Unsp spec) 27.9 % 19-41 [facility] Basophil percentageOrdered B y: Remus Bryanaubrey on 05-02-2023 Basophils/100 WBC (Bld) 0.5 % 0-1 [facility] Chloride [Moles/Vol] 110 mmol/L 98-107 [facility] Eosinophils/100 WBC (Bld) 2.3 % 0-5 [facility] Glucose [Mass/Vol] 112 mg/dL 74-106 [facility] Comment on above: Fasting Glucose resu lt from 100 to 125 mg/dL suggests IMPAIRED HOMEOSTASIS per A.D.A. criteria. Hemoglobin (Bld) [Mass/Vol] 13.8 g/dL 12.0-15.0 [facility] Monocytes/100 WBC (Bld) 6.2 % 0-10 [facility] Neutrophils (Bld) [#/Vol] 7.5 10*3/uL 2.0-7.7 [facility] Neutrophils/100 WBC (Bld) 62.9 % 47-70 [facility] Potassium [Moles/Vol] 4.0 mmol/L 3.5-5.1 [facility] Comment on above: Slight Hemolysis, Re sult may be falsely increased. Sodium [Moles/Vol] 136 mmol/L 136-145 [facility] WBC (Bld) [#/Vol] 11.9 10*3/uL 4.4-11.0 [facility] Determination of erythrocyte mean corpuscular volume (MCV)Ordered By: Silvia Filomena on 05-02-2023 MCV (RBC) [Entitic vol] 89.2 fL 81-99 [facility] Erythrocyte distribution wid th ratioOrdered By: Yamila Butt on 05-02-2023 Erythrocyte distribution width (RBC) [Ratio] 13.4 % 11.6-14.6 [facility] Erythrocyte distribution wid th standard deviationOrdered By: Yamila Butt on 05-02-2023 Erythrocyte distribution width (RBC) [Entitic vol] 44.1 fL 35.1-43.9 [facility] Hematocrit Auto (Bld) [Volum e fraction]Ordered By: Yamila Butt on 05-02-2023 Hematocrit (Bld) [Volume fraction] 42.1 % 37-47 [facility] Immature granulocytes/100 WB C Auto (Bld)Or[facility] By: [facility] But[facility] on 05-02-2023 Immature granulocytes/100 WBC (Bld) 0.200 % 0.0-0.9 [facility] Comment on above: IG% - Immature Granu locytes (promyelocytes, myelocytes and metamyelocytes) > 1% indicates that a LEFT SHIFT is Present. Laboratory - Chemistry and C hemistry - challengeOrdered By: Yamila Butt on 05-02-2023 CO2 [Moles/Vol] 24.0 mmol/L 21.0-32.0 [facility] Urea nitrogen/Creatinine [Mass ratio] 22.9 mg/mg 10-20 [facility] Laboratory - Hematology and Cell countsOrdered By: Yamila Butt on 05-02-2023 MCH (RBC) [Entitic mass] 29.2 pg 27.0-32.0 [facility] MCHC (RBC) [Mass/Vol] 32.8 g/dL 32-36 [facility] Nucleated RBC/100 WBC (Bld) [Ratio] 0 % 0-5 [facility] Platelet mean volume (Bld) [Entitic vol] 9.7 fL 6.2-12.0 [facility] Platelets (Bld) [#/Vol] 365 10*3/uL 150-450 [facility] No Panel InformationOrdered By: Yamila Butt on 05-02-2023 Estimated Creatinine Clearance Calc 126.19 ml/min [facility] Estimated GFR (MDRD) Amer 138 mL/min >60 [facility] Comment on above: GFR Calc Estimated GFR (MDRD) Non-Af Amer 114 mL/min >60 [facility] Comment on above: Non- GFR Calc RBC Auto (Bld) [#/Vol]Ordere d By: Yamila Butt on 05-02-2023 RBC (Bld) [#/Vol] 4.72 10*6/uL 4.2-5.4 [facility] Serum heterophile antibody d etectionOrdered By: Yamila Butt on 05-02-2023 Heterophile Ab Ql (S) Negative Negative [facility] Serum or plasma calcium beatrice urement (mass/volume)Ordered By: Yamila Butt on 05-02-2023 Calcium [Mass/Vol] 8.8 mg/dL 8.5-10.1 [facility] Serum or plasma creatinine m easurement (mass/volume)Ordered By: Yamila Butt on 05-02-2023 Creatinine [Mass/Vol] 0.61 mg/dL 0.55-1.02 [facility] Comment on above: The validity of the calculated GFR & GFRAA in patients over 70 years has not been determined. Clinical correlation is essential. Serum or plasma urea nitroge n measurement (mass/volume)Ordered By: Yamila Butt on 05-02-2023 Urea nitrogen [Mass/Vol] 14 mg/dL 7-18 [facility] Streptococcus pyogenes rRNA detection in throat by DNA probeOrdered By: Yamila Butt on 05-02-2023 S. pyogenes rRNA Probe Ql (Throat) [facility] Thin prep Papanicolaou smear with manual screeningOrdered By: Yamila Butt on 05-02-2023 Thin prep Papanicolaou smear with manual screening 2 5-15 [facility] Laboratory - Chemistry and C hemistry - challengeOrdered By: Isaiah White on 10-23-2022 HCG ( test) Ql (U) Negative [facility] Comment on above: Very dilute urine sp ecimens, as indicated by a low specificgravity, may not contain packaging sales representative levels of hCG. If is still suspected, a first morning urinespecimen should be collected 48 hours later and tested. US BREAST LTD RIGHTon 2022 [facility] US FEMALE PELVIS TRANSVAGon 07-27-2022 [facility] NM CARDIAC PERF STRESS/PHARM on 07-22-2022 NM CARDIAC PERF STRESS/PHARM * * *Final Report* * * DATE OF EXAM: Jul 22 2022 2:45PM SRIDHAR 0006 - NM CARDIAC PERF STRESS/PHARM / PROCEDURE REASON: R07.89-Other chest pain * * * * Physician Interpretation * * * * PATIENT: Name: MISS LENA CHAPARRO Age: 42 years Gender: F CONCLUSIONS: 1. SPECT Perfusion Study: Normal. 2. There is no scintigraphic evidence for inducible ischemia. 3. No evidence of scarred myocardium. 4. Left ventricle is normal in size. The left ventricle systolic function is normal. 5. Right ventricle is normal in size. The right ventricle systolic function is normal. 6. This is a low risk scan. Gated Stress IR:3D Gated Rest IR:3D LVEF % 67 65 Prior Study Comparison No prior nuclear cardiology exam available for comparison. Nuclear Med Report:1-Day Gated SPECT Myocardial Perfusion with Regadenoson Stress: Myocardial perfusion imaging was performed at rest 30 minutes following the IV injection of the radiotracer. The patient received 0.4 mg of regadenoson, via rapid IV push, immediately followed by radiotracer IV. Gated post stress tomographic imaging was performed 30 to 60 minutes later. See administered radiotracer and doses below. [facility] Date of service: 07/22/2022 12:56:39 PM Ordering Physician: KATHERINE LOZANO. Requesting Physician: Indication: Chest pain/anginal equiv, intermediate CAD risk, not treadmill candidate Interpreting physician: Mo Lino MD Height: 162.56 cm BSA: 1.84 m? Weight: 74.84 kg BMI: 28.3 kg/m? Imaging Protocol Limitation Reason G.I. uptake. Exam Type: Rest Stress Radiopharm: Tc-99m Tetrofosmin Tc-99m Tetrofosmin Dosage(mCi): 12.3 32.9 Atten Correction: not performed not performed Stress Agent: Regadenoson 0.4mg Supply provided from [facility] Resting Blood Press: 111/66 mmHg Image Quality The overall study imaging quality was deemed to be fair. The following technical issues were noted: G.I. uptake. FINDINGS: Left Ventricle Wall Motion: Stress IR:3D - All segments are normal. Rest IR:3D - Gated Stress IR:3D - Gated Rest IR:3D - Reversibility - Stress IR:3D Stress IR:3D Gated Stress IR:3D Gated Rest IR:3D LVEF: 67 % 65 % ED Volume: 84 ml 84 ml ES Volume: 28 ml 29 ml TID: 1.09 Perfusion Findings Stress IR:3D - Summed Score=0 All segments demonstrate normal perfusion. Rest IR:3D - Summed Score=0 All segments demonstrate normal perfusion. Stress IR:3D Rest IR:3D Summed Score=0 Summed Score=0 LEFT VENTRICLE The left ventricle is normal in size. Left ventricular systolic function is normal. Right Ventricle The right ventricle is normal in size. Right ventricle systolic function is normal. Stress Test Findings: There is no scintigraphic evidence for inducible ischemia. There is no evidence of scarring. The left ventricular cavity size is unchanged with stress. * * * Final * * * Stress ECG Report: [facility] Date of service: 07/22/2022 12:56:39 PM Ordering physician: KATHERINE LOZANO student specialist: Kayli Sorensen Rn Neonatal Icu: Brianna Ball Interpreting physician: Volodymyr Rodriguez DO Patient name: MISS LENA CHAPARRO Age: 42 years Gender: F Height: 162.56 cm BSA: 1.84 m? Weight: 74.84 kg BMI: 28.3 kg/m? Indication: Chest pressure / Chest tightness Stress ECG Conclusion: Conclusion: Normal Stress ECG Summary: The patient's resting heart rate was 69 bpm and blood pressure was 111/66 mmHg. The test was terminated due to end of protocol. Other symptoms during the test included SOB, headache and nausea. The maximum heart rate was 122 bpm, which is 68% of the predicted heart rate for age. Peak blood pressure was 126/62 mmHg. The double product achieved was [address]. Resting ECG: Normal Sinus Rhythm Symptoms at rest: No symptoms Pharamcologic Protocol: Regadenoson Stress Exercise Table: +-----+---+---+---+ Stage HR SYS ANTHONY +-----+---+---+---+ 1 122 104 78 +-----+---+---+---+ 2 121 115 63 +-----+---+---+---+ 3 112 126 62 +-----+---+---+---+ 4 114 121 64 +-----+---+---+---+ 5 107 118 63 +-----+---+---+---+ 6 97 115 63 +-----+---+---+---+ +-----+---+---+---+ HR SYS ANTHONY +-----+---+---+---+ Final 122 126 62 +-----+---+---+---+ Stress Observations: Resting HR: 69 bpm Peak HR: 122 bpm (68% MPHR) Resting BP: 111 / 66 mmHg Peak BP: 126 / 62 mmHg Rate Pressure Product (RPP): [id number] Stress Exercise Observations: Reason for test termination: end of protocol, Symptoms during test: Other symptoms during the test included SOB, headache and nausea, ST segment and T wave changes: No ST changes and Arrhythmias: No arrhythmias Electronically signed by Volodymyr Neff (more content not included)... [facility] Aravind 07-21-2022 ONEYDA Telephone (CDLBME) LENA CHAPARRO ([id number]) 1980 F Date Time Provider Department 07/21/22 HUMA RAINEY During your visit today, we recorded the following information about you: Huma Rainey RN 07/21/2022 2:01 PM Signed Spoke with patient regarding reminder for stress test tomorrow and given instructions. Allergies As of Date: 07/21/2022 Noted Allergy Reaction TIOCONAZOLE 01/30/2005 7 - Swelling Comments: Labial swelling Date Reviewed: 07/15/2022 Reviewed by: Klaudia Cobb APRN.CLINICAL APPLICATION CONSULTANT - Fully Assessed Reason for Visit: Reminder Call [[id number]] Prescriptions as of 07/21/2022 - miSOPROStol (CYTOTEC) 200 mcg tablet Insert 2 tablets vaginally night prior to IUD insertion and 2 tablets morning of procedure. Each dose should be in vagina for 6-8 hours. - ergocalciferol 50,000 unit capsule (VITAMIN D2, DRISDOL) Take 1 capsule by mouth one time a week. - nystatin (MYCOSTATIN) cream Apply 1 application to affected area twice daily. - famotidine (PEPCID) 20 mg tablet Take 1 tablet by mouth twice daily. - cetirizine (ZYRTEC) 10 mg tablet Take 1 tablet by mouth once daily. Take one pill by mouth daily. - fluticasone (FLONASE) 50 mcg/actuation nasal spray Use 2 Sprays in each nostril once daily. Rinse mouth after use. Problem List As Of Date 07/21/2022 Noted Resolved ABNL FINDINGS ON SCREEN [O28.9] 06/06/2007 10/26/2007 SUPRF HIGH RISK NEC [O09.899] 09/03/2007 10/26/2007 ABDOMINAL PAIN RUQ [R10.11] 09/03/2007 10/26/2007 Bipolar disorder, unspecified (HCC) [F31.9] 11/10/2007 05/28/2022 FIBROADENOSIS OF BREAST [N60.29] SEBACEOUS CYST [L72.3] 12/01/2007 Chronic pain of left knee [M25.562, G89.29] 01/18/2017 Mixed hyperlipidemia [E78.2] 09/15/2017 Carpal tunnel syndrome of left wrist [G56.02] 12/21/2017 Gastroesophageal reflux disease [K21.9] 01/07/2018 Carpal tunnel syndrome of right wrist [G56.01] 10/31/2018 Ulnar neuropathy at wrist, 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] 10/31/2018 Vertigo [R42] 01/28/2022 Anxiety with depression [F41.8] 05/28/2022 Encounter Status:Closed by HUMA RAINEY on 07/21/22 [facility] SCREENINGon 07-15-2022 [facility] Absolute lymphocyte countOrd ered By: Fabrizio Vanegas on 06-13-2022 Lymphocytes Auto (Unsp spec) [#/Vol] 3.61 10*3/uL 0.83-4.51 [facility] Basophil percentageOrdered B y: Fabrizio Vanegas on 06-13-2022 Basophils/100 WBC (Bld) 0.3 % 0-1 [facility] Chloride [Moles/Vol] 110 mmol/L 98-107 [facility] Eosinophils/100 WBC (Bld) 2.5 % 0-5 [facility] Glucose [Mass/Vol] 106 mg/dL 74-106 [facility] Comment on above: Fasting Glucose resu lt from 100 to 125 mg/dL suggests IMPAIRED HOMEOSTASIS per A.D.A. criteria. Neutrophils (Bld) [#/Vol] 4.5 10*3/uL 2.0-7.7 [facility] Neutrophils/100 WBC (Bld) 50.6 % 47-70 [facility] Potassium [Moles/Vol] 3.7 mmol/L 3.5-5.1 [facility] Sodium [Moles/Vol] 140 mmol/L 136-145 [facility] WBC (Bld) [#/Vol] 9.0 10*3/uL 4.4-11.0 [facility] Blood erythrocytes count (nu mber/volume)Ordered By: Fabrizio Vanegas on 06-13-2022 RBC (Bld) [#/Vol] 4.79 10*6/uL 4.2-5.4 [facility] Blood hemoglobin measurement (mass/volume)Ordered By: Fabrizio Vanegas on 06-13-2022 Hemoglobin (Bld) [Mass/Vol] 14.4 g/dL 12.0-15.0 [facility] Blood lymphocytes/100 leukoc ytesOrdered By: Fabrizio Vanegas on 06-13-2022 Lymphocytes/100 WBC (Bld) 40.2 % 19-41 [facility] Blood monocytes/100 leukocyt esOrdered By: Fabrizio Vanegas on 06-13-2022 Monocytes/100 WBC (Bld) 6.2 % 0-10 [facility] Blood platelet mean volumeOr dered By: Fabrizio Vanegas on 06-13-2022 Platelet mean volume (Bld) [Entitic vol] 9.9 fL 6.2-12.0 [facility] Determination of erythrocyte mean corpuscular volume (MCV)Ordered By: Fabrizio Vanegas on 06-13-2022 MCV (RBC) [Entitic vol] 91.0 fL 81-99 [facility] Hematocrit Auto (Bld) [Volum e fraction]Ordered By: Fabrizio Vanegas on 06-13-2022 Hematocrit (Bld) [Volume fraction] 43.6 % 37-47 [facility] Laboratory - Chemistry and C hemistry - challengeOrdered By: Fabrizio Vanegas on 06-13-2022 CO2 [Moles/Vol] 23.0 mmol/L 21.0-32.0 [facility] Magnesium [Mass/Vol] 2.3 mg/dL 1.6-2.6 [facility] Urea nitrogen/Creatinine [Mass ratio] 32.1 mg/mg 10-20 [facility] Laboratory - Hematology and Cell countsOrdered By: Fabrizio Vanegas on 06-13-2022 Erythrocyte distribution width (RBC) [Entitic vol] 43.8 fL 35.1-43.9 [facility] Erythrocyte distribution width (RBC) [Ratio] 13.0 % 11.6-14.6 [facility] Immature granulocytes/100 WBC (Bld) 0.200 % 0.0-0.9 [facility] Comment on above: IG% - Immature Granu locytes (promyelocytes, myelocytes and metamyelocytes) > 1% indicates that a LEFT SHIFT is Present. MCH (RBC) [Entitic mass] 30.1 pg 27.0-32.0 [facility] Nucleated RBC/100 WBC (Bld) [Ratio] 0 % 0-5 [facility] MCHC Auto (RBC) [Mass/Vol]Or dered By: Fabrizio Vanegas on 06-13-2022 MCHC (RBC) [Mass/Vol] 33.0 g/dL 32-36 [facility] No Panel InformationOrdered By: Fabrizio Vanegas on 06-13-2022 Estimated Creatinine Clearance Calc 104.16 ml/min [facility] Estimated GFR (MDRD) Amer 136 mL/min >60 [facility] Comment on above: GFR Calc Estimated GFR (MDRD) Non-Af Amer 112 mL/min >60 [facility] Comment on above: Non- GFR Calc Troponin I High Sensitivity 3 pg/mL 3.0-54.0 [facility] Comment on above: Please Note: New Ellen t Units and Gender Specific Reference Ranges. For more information see Policy Stat Procedure [place] High Sensitivity Troponin (TNIH) and attachments. Platelets bldOrdered By: Fer Vanegas on 06-13-2022 Platelets (Bld) [#/Vol] 415 10*3/uL 150-450 [facility] Serum or plasma calcium beatrice urement (mass/volume)Ordered By: Fabrizio Vanegas on 06-13-2022 Calcium [Mass/Vol] 9.1 mg/dL 8.5-10.1 [facility] Serum or plasma creatinine m easurement (mass/volume)Ordered By: Fabrizio Vanegas on 06-13-2022 Creatinine [Mass/Vol] 0.62 mg/dL 0.55-1.02 [facility] Comment on above: The validity of the calculated GFR & GFRAA in patients over 70 years has not been determined. Clinical correlation is essential. Serum or plasma urea nitroge n measurement (mass/volume)Ordered By: Fabrizio Vanegas on 06-13-2022 Urea nitrogen [Mass/Vol] 20 mg/dL 7-18 [facility] Thin prep Papanicolaou smear with manual screeningOrdered By: Fabrizio Vanegas on 06-13-2022 Thin prep Papanicolaou smear with manual screening 7 5-15 [facility] UA DIP, URINE (POC)on 2022 BILIRUBIN UA (POCT) Negative Negative [facility] CLARITY UA (POCT) Slightly Cloudy Cl [facility] COLOR UA (POCT) Yellow [facility] GLUCOSE UA (POCT) Negative Negative mg/dL [facility] HEMOGLOBIN/BLOOD UA (POCT) Moderate Abnormal Negative [facility] KETONE UA (POCT) Trace Negative mg/dL [facility] LEUKOCYTES UA (POCT) Negative Negative [facility] NITRITE UA (POCT) Negative Negative [facility] PH UA (POCT) 5.5 4.5 - 8.0 [facility] Protein Ql (U) 30 mg/dL Abnormal Negative mg/dL [facility] SPECIFIC GRAVITY UA (POCT) >=1.030 1.005 - 1.030 [facility] UROBILINOGEN UA (POCT) 0.2 E.U./dL Normal E.U./dL [facility] Absolute lymphocyte counton 01-06-2022 Lymphocytes Auto (Unsp spec) [#/Vol] 3.42 10*3/uL 0.83-4.51 [facility] Work Phone: Basophil percentageon 2021 Basophil percentage 0 SEEN /hpf 0-5 [facility] Work Phone: Basophils/100 WBC (Bld) 0.6 % 0-1 [facility] Work Phone: Chloride [Moles/Vol] 110 mmol/L 98-107 [facility] Work Phone: Eosinophils/100 WBC (Bld) 2.3 % 0-5 [facility] Work Phone: Glucose [Mass/Vol] 101 mg/dL 74-106 [facility] Work Phone: Comment on above: Fasting Glucose resu lt from 100 to 125 mg/dL suggests IMPAIRED HOMEOSTASIS per A.D.A. criteria. Neutrophils (Bld) [#/Vol] 5.5 10*3/uL 2.0-7.7 [facility] Work Phone: Neutrophils/100 WBC (Bld) 56.1 % 47-70 [facility] Work Phone: Potassium [Moles/Vol] 4.1 mmol/L 3.5-5.1 [facility] Work Phone: Comment on above: Moderate Hemolysis, Result may be falsely increased. Sodium [Moles/Vol] 139 mmol/L 136-145 [facility] Work Phone: WBC (Bld) [#/Vol] 9.9 10*3/uL 4.4-11.0 [facility] Work Phone: Beta hCG serum qualon 2021 Beta HCG ( test) Ql Negative [facility] Work Phone: Bilirubin Test strip Ql (U)o n 01-06-2022 Bilirubin Ql (U) Negative Negative [facility] Work Phone: Blood erythrocytes count (nu mber/volume)on 01-06-2022 RBC (Bld) [#/Vol] 4.85 10*6/uL 4.2-5.4 [facility] Work Phone: Blood hemoglobin measurement (mass/volume)on 01-06-2022 Hemoglobin (Bld) [Mass/Vol] 14.4 g/dL 12.0-15.0 [facility] Work Phone: Blood lymphocytes/100 leukoc yteson 01-06-2022 Lymphocytes/100 WBC (Bld) 34.7 % 19-41 [facility] Work Phone: Blood monocytes/100 leukocyt eson 01-06-2022 Monocytes/100 WBC (Bld) 6.0 % 0-10 [facility] Work Phone: Blood platelet adequacy dete ction by light microscopyon 01-06-2022 Platelets LM Ql (Bld) MOD DEC ADEQ [facility] Work Phone: Blood platelet mean volumeon 01-06-2022 Platelet mean volume (Bld) [Entitic vol] 12.0 fL 6.2-12.0 [facility] Work Phone: Determination of erythrocyte mean corpuscular volume (MCV)on 01-06-2022 MCV (RBC) [Entitic vol] 91.5 fL 81-99 [facility] Work Phone: Hematocrit Auto (Bld) [Volum e fraction]on 01-06-2022 Hematocrit (Bld) [Volume fraction] 44.4 % 37-47 [facility] Work Phone: Ketones Test strip Ql (U)on 01-06-2022 Ketones Ql (U) Negative Negative [facility] Work Phone: Laboratory - Chemistry and C hemistry - challengeon 01-06-2022 CO2 [Moles/Vol] 25.0 mmol/L 21.0-32.0 [facility] Work Phone: Urea nitrogen/Creatinine [Mass ratio] 25.3 mg/mg 10-20 [facility] Work Phone: Laboratory - Hematology and Cell countson 01-06-2022 Anisocytosis Ql (Bld) RARE [facility] Work Phone: Erythrocyte distribution width (RBC) [Entitic vol] 45.9 fL 35.1-43.9 [facility] Work Phone: Erythrocyte distribution width (RBC) [Ratio] 13.4 % 11.6-14.6 [facility] Work Phone: Immature granulocytes/100 WBC (Bld) 0.300 % 0.0-0.9 [facility] Work Phone: Comment on above: IG% - Immature Granu locytes (promyelocytes, myelocytes and metamyelocytes) > 1% indicates that a LEFT SHIFT is Present. MCH (RBC) [Entitic mass] 29.7 pg 27.0-32.0 [facility] Work Phone: Nucleated RBC/100 WBC (Bld) [Ratio] 0 % 0-5 [facility] Work Phone: MCHC Auto (RBC) [Mass/Vol]on 01-06-2022 MCHC (RBC) [Mass/Vol] 32.4 g/dL 32-36 [facility] Work Phone: Macrocytes detectionon 01-06 Macrocytes Ql (Bld) RARE [facility] Work Phone: Mucus LM Ql (Urine sed)on Mucus Ql (Urine sed) 0 SEEN /hpf [facility] Work Phone: Nitrite Test strip Ql (U)on 01-06-2022 Nitrite Ql (U) Negative Negative [facility] Work Phone: No Panel Informationon 01-06 Estimated Creatinine Clearance Calc 110.55 ml/min [facility] Work Phone: Estimated GFR (MDRD) Amer 144 mL/min >60 [facility] Work Phone: Comment on above: GFR Calc Estimated GFR (MDRD) Non-Af Amer 119 mL/min >60 [facility] Work Phone: Comment on above: Non- GFR Calc Troponin I High Sensitivity 3 pg/mL 3.0-54.0 [facility] Work Phone: Comment on above: Please Note: New Ellen t Units and Gender Specific Reference Ranges. For more information see Policy Stat Procedure [place] High Sensitivity Troponin (TNIH) and attachments. Platelets bldon 01-06-2022 Platelets (Bld) [#/Vol] 84 10*3/uL 150-450 [facility] Work Phone: Protein Test strip Ql (U)on 01-06-2022 Protein Ql (U) Negative Negative [facility] Work Phone: Serum or plasma calcium beatrice urement (mass/volume)on 01-06-2022 Calcium [Mass/Vol] 9.8 mg/dL 8.5-10.1 [facility] Work Phone: Serum or plasma creatinine m easurement (mass/volume)on 01-06-2022 Creatinine [Mass/Vol] 0.59 mg/dL 0.55-1.02 [facility] Work Phone: Comment on above: The validity of the calculated GFR & GFRAA in patients over 70 years has not been determined. Clinical correlation is essential. Serum or plasma urea nitroge n measurement (mass/volume)on 01-06-2022 Urea nitrogen [Mass/Vol] 15 mg/dL 7-18 [facility] Work Phone: Squamous epithelial cells de tection in urine sediment by light microscopyon 01-06-2022 Epithelial cells.squamous LM Ql (Urine sed) 0-5 SEEN /hpf 5-10 [facility] Work Phone: Thin prep Papanicolaou smear with manual screeningon 01-06-2022 Thin prep Papanicolaou smear with manual screening 4 5-15 [facility] Work Phone: Urine blood detectionon 12-17 RBC Ql (U) 50 /ul Negative [facility] Work Phone: RBC Ql (U) 0 SEEN /hpf 0-5 [facility] Work Phone: Urine clarityon 01-06-2022 Clarity (U) Clear Clear [facility] Work Phone: Urine color determinationon 01-06-2022 Color (U) Yellow Yellow [facility] Work Phone: Urine glucose detectionon Glucose Ql (U) Normal mg/dl Normal [facility] Work Phone: Urine leukocyte esterase det ection by dipstickon 01-06-2022 Leukocyte esterase Test strip Ql (U) Negative Negative [facility] Work Phone: Urine pHon 01-06-2022 pH (U) 6.0 [pH] 5.0 - 8.0 [facility] Work Phone: Urine sediment bacteria coun t by microscopy (number/high power field)on 01-06-2022 Bacteria LM.HPF (Urine sed) [#/Area] 0 /[HPF] None Seen [facility] Work Phone: Urine specific gravity measu rementon 01-06-2022 Specific gravity (U) [Rel density] 1.020 1.002-1.03 0 [facility] Work Phone: Urobilinogen Auto test strip Ql (U)on 01-06-2022 Urobilinogen Ql (U) Normal mg/dl Normal [facility] Work Phone: Office Visit: UC: Contact Jayson [email or web address] 10-08-2016 Documentation of current medications (procedure) Done Invalid Interpretation Code [facility] Work Phone: Protein mass conc Done [facility] Work Phone: Tobacco smoking status NHIS Current every day smoker [facility] Work Phone: Tobacco use HS Current every day smoker Invali d Interpretation Code [facility] Work Phone: Vital Signs Date Time Vital Sign Value Performing Clinician Facility 05-28-2024 14:57-0400 Body mass index (BMI) [Ratio] 32.17 kg/m2 Krislyn Aberegg PA Work Phone: [facility] 05-28-2024 14:57-0400 Body temperature 97.2 [degF] Krislyn Aberegg PA Work Phone: [facility] 05-28-2024 14:57-0400 Body weight 85 kg Krislyn Aberegg PA Work Phone: [facility] 05-28-2024 14:57-0400 Diastolic blood pressure 85 mm[Hg] Krislyn Aberegg PA Work Phone: [facility] 05-28-2024 14:57-0400 Heart rate 94 /min Krislyn Aberegg PA Work Phone: [facility] 05-28-2024 14:57-0400 Respiratory rate 22 /min Krislyn Aberegg PA Work Phone: [facility] 05-28-2024 14:57-0400 SaO2% (BldA) [Mass fraction] 98 % Krislyn Aberegg PA Work Phone: [facility] 05-28-2024 14:57-0400 Systolic blood pressure 122 mm[Hg] Krislyn Aberegg PA Work Phone: [facility] 10-19-2023 14:37-0400 Body height 162.6 cm Wilver Jones MD Work Phone: [facility] 10-19-2023 14:37-0400 Body mass index (BMI) [Ratio] 31.58 kg/m2 Wilver Jones MD Work Phone: [facility] 10-19-2023 14:37-0400 Body weight 83.46 kg Wilver Jones MD Work Phone: [facility] 10-19-2023 14:37-0400 Diastolic blood pressure 76 mm[Hg] Wilver Jones MD Work Phone: [facility] 10-19-2023 14:37-0400 Heart rate 87 /min Wilver Jones MD Work Phone: [facility] 10-19-2023 14:37-0400 SaO2% (BldA) [Mass fraction] 98 % Wilver Jones MD Work Phone: [facility] 10-19-2023 14:37-0400 Systolic blood pressure 110 mm[Hg] Wilver Jones MD Work Phone: [facility] 09-15-2023 17:39-0400 Body mass index (BMI) [Ratio] 31.07 kg/m2 Lorena Podlogar PRODUCTION MAINTENANCE MECHANIC.CLINICAL APPLICATION CONSULTANT Work Phone: [facility] 09-15-2023 17:39-0400 Body weight 82.1 kg Lorena Podlogar PRODUCTION MAINTENANCE MECHANIC.CLINICAL APPLICATION CONSULTANT Work Phone: [facility] 09-15-2023 17:39-0400 Diastolic blood pressure 82 mm[Hg] Lorena Podlogar PRODUCTION MAINTENANCE MECHANIC.CLINICAL APPLICATION CONSULTANT Work Phone: [facility] 09-15-2023 17:39-0400 Heart rate 99 /min Lorena Podlogar PRODUCTION MAINTENANCE MECHANIC.CLINICAL APPLICATION CONSULTANT Work Phone: [facility] 09-15-2023 17:39-0400 Respiratory rate 18 /min Lorena Podlogar PRODUCTION MAINTENANCE MECHANIC.CLINICAL APPLICATION CONSULTANT Work Phone: [facility] 09-15-2023 17:39-0400 SaO2% (BldA) [Mass fraction] 98 % Lorena Podlogar PRODUCTION MAINTENANCE MECHANIC.CLINICAL APPLICATION CONSULTANT Work Phone: [facility] 09-15-2023 17:39-0400 Systolic blood pressure 124 mm[Hg] Lorena Podlogar PRODUCTION MAINTENANCE MECHANIC.CLINICAL APPLICATION CONSULTANT Work Phone: [facility] 08-02-2023 12:23-0400 Body mass index (BMI) [Ratio] 31.07 kg/m2 [facility] PRODUCTION MAINTENANCE MECHANIC.CLINICAL APPLICATION CONSULTANT Work Phone: [facility] 08-02-2023 12:23-0400 Body temperature 97.9 [degF] [facility] PRODUCTION MAINTENANCE MECHANIC.CLINICAL APPLICATION CONSULTANT Work Phone: [facility] 08-02-2023 12:23-0400 Body weight 82.1 kg Johnathanmary grace [facility] PRODUCTION MAINTENANCE MECHANIC.CLINICAL APPLICATION CONSULTANT Work Phone: [facility] 08-02-2023 12:23-0400 Diastolic blood pressure 82 mm[Hg] [facility] PRODUCTION MAINTENANCE MECHANIC.CLINICAL APPLICATION CONSULTANT Work Phone: [facility] 08-02-2023 12:23-0400 Heart rate 102 /min [facility] PRODUCTION MAINTENANCE MECHANIC.CLINICAL APPLICATION CONSULTANT Work Phone: [facility] 08-02-2023 12:23-0400 Respiratory rate 18 /min [facility] PRODUCTION MAINTENANCE MECHANIC.CLINICAL APPLICATION CONSULTANT Work Phone: [facility] 08-02-2023 12:23-0400 SaO2% (BldA) [Mass fraction] 98 % [facility] PRODUCTION MAINTENANCE MECHANIC.CLINICAL APPLICATION CONSULTANT Work Phone: [facility] 08-02-2023 12:23-0400 Systolic blood pressure 132 mm[Hg] [facility] PRODUCTION MAINTENANCE MECHANIC.CLINICAL APPLICATION CONSULTANT Work Phone: [facility] 07-19-2023 14:45-0400 Body height 162.6 cm Wilver Jones MD Work Phone: [facility] 07-19-2023 14:45-0400 Body mass index (BMI) [Ratio] 31.24 kg/m2 Wilver Jones MD Work Phone: [facility] 07-19-2023 14:45-0400 Body weight 82.56 kg Wilver Jones MD Work Phone: [facility] 07-19-2023 14:45-0400 Diastolic blood pressure 66 mm[Hg] Wilver Jones MD Work Phone: [facility] 06-03-2024 14:45-0400 Heart rate 110 /min Wilver Jones MD Work Phone: [facility] 07-19-2023 14:45-0400 SaO2% (BldA) [Mass fraction] 97 % Wilver Jones MD Work Phone: [facility] 07-19-2023 14:45-0400 Systolic blood pressure 90 mm[Hg] Wilver Jones MD Work Phone: [facility] 05-07-2023 08:53-0400 Body weight 81.65 kg Wilver Jones MD Work Phone: [facility] 05-07-2023 08:53-0400 Diastolic blood pressure 82 mm[Hg] Wilver Jones MD Work Phone: [facility] 05-07-2023 08:53-0400 Heart rate 85 /min Wilver Jones MD Work Phone: [facility] 05-07-2023 08:53-0400 SaO2% (BldA) [Mass fraction] 97 % Wilver Jones MD Work Phone: [facility] 05-07-2023 08:53-0400 Systolic blood pressure 122 mm[Hg] Wilver Jones MD Work Phone: [facility] 05-02-2023 12:55-0400 Body temperature 95.2 [degF] [facility] 05-02-2023 12:55-0400 Diastolic blood pressure 74 mm[Hg] [facility] 05-02-2023 12:55-0400 Heart rate 71 /min [facility] 05-02-2023 12:55-0400 Respiratory rate 16 /min [facility] 05-02-2023 12:55-0400 SaO2% (BldA) [Mass fraction] 98 % [facility] 05-02-2023 12:55-0400 Systolic blood pressure 110 mm[Hg] [facility] 05-02-2023 09:12-0400 Body height 162.56 cm [facility] 05-02-2023 09:12-0400 Body mass index (BMI) [Ratio] 31.2 kg/m2 [facility] 05-02-2023 09:12-0400 Body weight 82.6 kg [facility] 04-08-2023 16:28-0500 Body temperature 96.91 [degF] Arnoldo Mccloud MD Work Phone: [facility] 04-08-2023 16:28-0500 Body weight 79.29 kg Arnoldo Mccloud MD Work Phone: [facility] 04-08-2023 16:28-0500 Diastolic blood pressure 70 mm[Hg] Arnoldo Mccloud MD Work Phone: [facility] 04-08-2023 16:28-0500 Heart rate 106 /min Arnoldo Mccloud MD Work Phone: [facility] 04-08-2023 16:28-0500 Respiratory rate 16 /min Arnoldo Mccloud MD Work Phone: [facility] 04-08-2023 16:28-0500 SaO2% (BldA) [Mass fraction] 98 % Arnoldo Mccloud MD Work Phone: [facility] 04-08-2023 16:28-0500 Systolic blood pressure 102 mm[Hg] Arnoldo Mccloud MD Work Phone: [facility] 03-23-2023 16:07-0500 Body weight 80.74 kg Clover Suppan PRODUCTION MAINTENANCE MECHANIC.MOLD MOVER Work Phone: [facility] 03-23-2023 16:07-0500 Diastolic blood pressure 62 mm[Hg] Clover Suppan PRODUCTION MAINTENANCE MECHANIC.MOLD MOVER Work Phone: [facility] 03-23-2023 16:07-0500 Heart rate 103 /min Clover Suppan PRODUCTION MAINTENANCE MECHANIC.MOLD MOVER Work Phone: [facility] 03-23-2023 16:07-0500 Respiratory rate 16 /min Clover Suppan PRODUCTION MAINTENANCE MECHANIC.MOLD MOVER Work Phone: [facility] 03-23-2023 16:07-0500 SaO2% (BldA) [Mass fraction] 99 % Clover Suppan PRODUCTION MAINTENANCE MECHANIC.MOLD MOVER Work Phone: [facility] 03-23-2023 16:07-0500 Systolic blood pressure 120 mm[Hg] Clover Martin PRODUCTION MAINTENANCE MECHANIC.MOLD MOVER Work Phone: [facility] 01-13-2023 09:27-0500 Body weight 78.47 kg Wilver Jones MD Work Phone: [facility] 01-13-2023 09:27-0500 Diastolic blood pressure 82 mm[Hg] Wilver Jones MD Work Phone: [facility] 01-13-2023 09:27-0500 Heart rate 114 /min Wilver Jones MD Work Phone: [facility] 01-13-2023 09:27-0500 SaO2% (BldA) [Mass fraction] 96 % Wilver Jones MD Work Phone: [facility] 01-13-2023 09:27-0500 Systolic blood pressure 132 mm[Hg] Wilver Jones MD Work Phone: [facility] 12-25-2022 15:44-0500 Body temperature 97.3 [degF] Luis Angel Lopez MD Work Phone: [facility] 12-25-2022 15:44-0500 Body weight 78.02 kg Luis Angel Lopez MD Work Phone: [facility] 12-25-2022 15:44-0500 Diastolic blood pressure 70 mm[Hg] Luis Angel Lopez MD Work Phone: [facility] 12-25-2022 15:44-0500 Heart rate 97 /min Luis Angel Lopez MD Work Phone: [facility] 12-25-2022 15:44-0500 Respiratory rate 16 /min Luis Angel Lopez MD Work Phone: [facility] 12-25-2022 15:44-0500 SaO2% (BldA) [Mass fraction] 96 % Luis Angel Lopez MD Work Phone: [facility] 12-25-2022 15:44-0500 Systolic blood pressure 128 mm[Hg] Luis Angel Lopez MD Work Phone: [facility] 11-03-2022 14:00-0400 Diastolic blood pressure 78 mm[Hg] Wilver Jones MD Work Phone: [facility] 11-03-2022 14:00-0400 Heart rate 87 /min Wilver Joens MD Work Phone: [facility] 11-03-2022 14:00-0400 Respiratory rate 16 /min Wilver Jones MD Work Phone: [facility] 11-03-2022 14:00-0400 SaO2% (BldA) [Mass fraction] 99 % Wilver Jones MD Work Phone: [facility] 11-03-2022 14:00-0400 Systolic blood pressure 118 mm[Hg] Wilver Jones MD Work Phone: [facility] 10-23-2022 17:12-0400 Body temperature 98.7 [degF] [facility] 10-23-2022 17:12-0400 Diastolic blood pressure 86 mm[Hg] [facility] 10-23-2022 17:12-0400 Heart rate 73 /min [facility] 10-23-2022 17:12-0400 Respiratory rate 16 /min [facility] 10-23-2022 17:12-0400 SaO2% (BldA) [Mass fraction] 99 % [facility] 10-23-2022 17:12-0400 Systolic blood pressure 119 mm[Hg] [facility] 10-23-2022 12:55-0400 Body height 162.56 cm [facility] 10-23-2022 12:55-0400 Body mass index (BMI) [Ratio] 28.8 kg/m2 [facility] 10-23-2022 12:55-0400 Body weight 76 kg [facility] 10-12-2022 17:00-0400 Body weight 76.2 kg Katherine Lozano APRN.CLINICAL APPLICATION CONSULTANT Work Phone: [facility] 10-12-2022 17:00-0400 Diastolic blood pressure 76 mm[Hg] Katherine Lozano APRN.CLINICAL APPLICATION CONSULTANT Work Phone: [facility] 10-12-2022 17:00-0400 Heart rate 105 /min Katherine Lozano APRN.CLINICAL APPLICATION CONSULTANT Work Phone: [facility] 10-12-2022 17:00-0400 Respiratory rate 16 /min Katherine Lozano APRN.CLINICAL APPLICATION CONSULTANT Work Phone: [facility] 10-12-2022 17:00-0400 SaO2% (BldA) [Mass fraction] 97 % Katherine Lozano APRN.CLINICAL APPLICATION CONSULTANT Work Phone: [facility] 10-12-2022 17:00-0400 Systolic blood pressure 108 mm[Hg] Katherine Lozano APRN.CLINICAL APPLICATION CONSULTANT Work Phone: [facility] 09-01-2022 11:31-0400 Body weight 76.39 kg Klaudia Cobb APRN.CLINICAL APPLICATION CONSULTANT Work Phone: [facility] 09-01-2022 11:31-0400 Diastolic blood pressure 74 mm[Hg] Klaudia Cobb APRN.CLINICAL APPLICATION CONSULTANT Work Phone: [facility] 09-01-2022 11:31-0400 Systolic blood pressure 120 mm[Hg] Klaudia Cobb APRN.CLINICAL APPLICATION CONSULTANT Work Phone: [facility] 07-16-2022 11:04-0400 Body height 162.56 cm [facility] 07-16-2022 11:04-0400 Body mass index (BMI) [Ratio] 28.3 kg/m2 [facility] 07-16-2022 11:04-0400 Body temperature 98 [degF] [facility] 07-16-2022 11:04-0400 Body weight 74.84 kg [facility] 07-16-2022 11:04-0400 Diastolic blood pressure 77 mm[Hg] [facility] 07-16-2022 11:04-0400 Heart rate 91 /min [facility] 07-16-2022 11:04-0400 Respiratory rate 16 /min [facility] 07-16-2022 11:04-0400 SaO2% (BldA) [Mass fraction] 100 % [facility] 07-16-2022 11:04-0400 Systolic blood pressure 111 mm[Hg] [facility] 07-15-2022 15:01-0400 Body height 162.6 cm Klaudia Cobb APRN.CLINICAL APPLICATION CONSULTANT Work Phone: [facility] 07-15-2022 15:01-0400 Body weight 74.84 kg Klaudia Cobb APRN.CLINICAL APPLICATION CONSULTANT Work Phone: [facility] 07-15-2022 15:01-0400 Diastolic blood pressure 80 mm[Hg] Klaudia Cobb APRN.CLINICAL APPLICATION CONSULTANT Work Phone: [facility] 07-15-2022 15:01-0400 Systolic blood pressure 118 mm[Hg] Klaudia Cobb APRN.CLINICAL APPLICATION CONSULTANT Work Phone: [facility] 06-26-2022 13:06-0400 Diastolic blood pressure 72 mm[Hg] Katherine Lozano PRODUCTION MAINTENANCE MECHANIC.CLINICAL APPLICATION CONSULTANT Work Phone: [facility] 06-26-2022 13:06-0400 Heart rate 102 /min Katherine Lozano PRODUCTION MAINTENANCE MECHANIC.CLINICAL APPLICATION CONSULTANT Work Phone: [facility] 06-26-2022 13:06-0400 Respiratory rate 18 /min Katherine Lozano PRODUCTION MAINTENANCE MECHANIC.CLINICAL APPLICATION CONSULTANT Work Phone: [facility] 06-26-2022 13:06-0400 SaO2% (BldA) [Mass fraction] 96 % Katherine Lozano APRN.CLINICAL APPLICATION CONSULTANT Work Phone: [facility] 06-26-2022 13:06-0400 Systolic blood pressure 110 mm[Hg] Katherine Habernard PRODUCTION MAINTENANCE MECHANIC.CLINICAL APPLICATION CONSULTANT Work Phone: [facility] 06-13-2022 08:07-0400 Diastolic blood pressure 70 mm[Hg] [facility] 06-13-2022 08:07-0400 Heart rate 72 /min [facility] 06-13-2022 08:07-0400 Respiratory rate 14 /min [facility] 06-13-2022 08:07-0400 SaO2% (BldA) [Mass fraction] 99 % [facility] 06-13-2022 08:07-0400 Systolic blood pressure 120 mm[Hg] [facility] 06-13-2022 06:19-0400 Body height 162.56 cm [facility] 06-13-2022 06:19-0400 Body mass index (BMI) [Ratio] 28.8 kg/m2 [facility] 06-13-2022 06:19-0400 Body temperature 97 [degF] [facility] 06-13-2022 06:19-0400 Body weight 76.1 kg [facility] 05-28-2022 16:27-0400 Body height 162.6 cm Wilver Jones MD Work Phone: [facility] 05-28-2022 16:27-0400 Body weight 77.11 kg Wilver Jones MD Work Phone: [facility] 05-28-2022 16:27-0400 Diastolic blood pressure 94 mm[Hg] Wilver Jones MD Work Phone: [facility] 05-28-2022 16:27-0400 Heart rate 100 /min Wilver Jones MD Work Phone: [facility] 05-28-2022 16:27-0400 SaO2% (BldA) [Mass fraction] 99 % Wilver Jones MD Work Phone: [facility] 05-28-2022 16:27-0400 Systolic blood pressure 164 mm[Hg] Wilver Jones MD Work Phone: [facility] 05-16-2022 14:45-0400 Body temperature 96.8 [degF] Jennifer Hopkins PRODUCTION MAINTENANCE MECHANIC.CLINICAL APPLICATION CONSULTANT Work Phone: [facility] 05-16-2022 14:45-0400 Body weight 78.02 kg Jennifer Hopkins PRODUCTION MAINTENANCE MECHANIC.CLINICAL APPLICATION CONSULTANT Work Phone: [facility] 05-16-2022 14:45-0400 Diastolic blood pressure 82 mm[Hg] Jennifer Hopkins PRODUCTION MAINTENANCE MECHANIC.CLINICAL APPLICATION CONSULTANT Work Phone: [facility] 05-16-2022 14:45-0400 Heart rate 102 /min Jennifer Hopkins PRODUCTION MAINTENANCE MECHANIC.CLINICAL APPLICATION CONSULTANT Work Phone: [facility] 05-16-2022 14:45-0400 Respiratory rate 18 /min Jennifer Hopkins PRODUCTION MAINTENANCE MECHANIC.CLINICAL APPLICATION CONSULTANT Work Phone: [facility] 05-16-2022 14:45-0400 SaO2% (BldA) [Mass fraction] 98 % Jennifer Hopkins PRODUCTION MAINTENANCE MECHANIC.CLINICAL APPLICATION CONSULTANT Work Phone: [facility] 05-16-2022 14:45-0400 Systolic blood pressure 132 mm[Hg] Jennifer Hopkins PRODUCTION MAINTENANCE MECHANIC.CLINICAL APPLICATION CONSULTANT Work Phone: [facility] 04-07-2022 14:03-0500 Body height 162.6 cm Yarely Dawkins MD Work Phone: [facility] 04-07-2022 14:03-0500 Body weight 77.56 kg Yarely Dawkins MD Work Phone: [facility] 04-07-2022 14:03-0500 Diastolic blood pressure 74 mm[Hg] Yarely Dawkins MD Work Phone: [facility] 04-07-2022 14:03-0500 Heart rate 96 /min Yarely Dawkins MD Work Phone: [facility] 04-07-2022 14:03-0500 SaO2% (BldA) [Mass fraction] 97 % Yarely Dawkins MD Work Phone: [facility] 04-07-2022 14:03-0500 Systolic blood pressure 103 mm[Hg] Yarely Dawkins MD Work Phone: [facility] 04-01-2022 13:16-0500 Diastolic blood pressure 90 mm[Hg] Katherine Haagen PRODUCTION MAINTENANCE MECHANIC.CLINICAL APPLICATION CONSULTANT Work Phone: [facility] 04-01-2022 13:16-0500 Heart rate 102 /min Katherine Haagen PRODUCTION MAINTENANCE MECHANIC.CLINICAL APPLICATION CONSULTANT Work Phone: [facility] 04-01-2022 13:16-0500 Respiratory rate 18 /min Katherine Haagen PRODUCTION MAINTENANCE MECHANIC.CLINICAL APPLICATION CONSULTANT Work Phone: [facility] 04-01-2022 13:16-0500 SaO2% (BldA) [Mass fraction] 97 % Katherine Lozano PRODUCTION MAINTENANCE MECHANIC.CLINICAL APPLICATION CONSULTANT Work Phone: [facility] 04-01-2022 13:16-0500 Systolic blood pressure 124 mm[Hg] Katherine Lozano PRODUCTION MAINTENANCE MECHANIC.CLINICAL APPLICATION CONSULTANT Work Phone: [facility] 02-04-2022 09:39-0500 Heart rate 78 /min Wilver Jones MD Work Phone: [facility] 02-04-2022 09:24-0500 Body height 162.6 cm Wilver Jones MD Work Phone: [facility] 02-04-2022 09:24-0500 Body weight 76.2 kg Wilver Jones MD Work Phone: [facility] 02-04-2022 09:24-0500 Diastolic blood pressure 70 mm[Hg] Wilver Jones MD Work Phone: [facility] 02-04-2022 09:24-0500 SaO2% (BldA) [Mass fraction] 98 % Wilver Jones MD Work Phone: [facility] 02-04-2022 09:24-0500 Systolic blood pressure 110 mm[Hg] Wilver Jones MD Work Phone: [facility] 01-23-2022 11:45-0500 Body weight 76.2 kg NA Edwards PA-C Work Phone: [facility] 01-23-2022 11:45-0500 Diastolic blood pressure 62 mm[Hg] NA Edwards PA-C Work Phone: [facility] 01-23-2022 11:45-0500 Heart rate 102 /min NA Edwards PA-C Work Phone: [facility] 01-23-2022 11:45-0500 Respiratory rate 16 /min NA Edwards PA-C Work Phone: [facility] 01-23-2022 11:45-0500 SaO2% (BldA) [Mass fraction] 98 % NA Edwards PA-C Work Phone: [facility] 01-23-2022 11:45-0500 Systolic blood pressure 124 mm[Hg] NA Ewdards PA-C Work Phone: [facility] 01-09-2022 16:01-0500 Body height 162.6 cm Wilver Jones MD Work Phone: [facility] 01-09-2022 16:01-0500 Body weight 77.84 kg Wilver Jones MD Work Phone: [facility] 01-09-2022 16:01-0500 Diastolic blood pressure 68 mm[Hg] Wilver Jones MD Work Phone: [facility] 01-09-2022 16:01-0500 Heart rate 89 /min Wilver Jones MD Work Phone: [facility] 01-09-2022 16:01-0500 SaO2% (BldA) [Mass fraction] 97 % Wilver Jones MD Work Phone: [facility] 01-09-2022 16:01-0500 Systolic blood pressure 118 mm[Hg] Wilver Jones MD Work Phone: [facility] 01-06-2022 17:49-0500 Diastolic blood pressure 82 mm[Hg] Dr. Wilver Jones Work Phone: [facility] Work Phone: 01-06-2022 17:49-0500 Heart rate 89 /min Dr. Wilver Jones Work Phone: [facility] Work Phone: 01-06-2022 17:49-0500 Respiratory rate 12 /min Dr. Wilver Jones Work Phone: [facility] Work Phone: 01-06-2022 17:49-0500 SaO2% (BldA) [Mass fraction] 100 % Dr. Wilver Jones Work Phone: [facility] Work Phone: 01-06-2022 17:49-0500 Systolic blood pressure 127 mm[Hg] Dr. Wilver Jones Work Phone: [facility] Work Phone: 01-06-2022 14:56-0500 Body height 162.[address] Wilver Jones Work Phone: [facility] Work Phone: 01-06-2022 14:56-0500 Body mass index (BMI) [Ratio] 29.2 kg/m2 Dr. Wilver Jones Work Phone: [facility] Work Phone: 01-06-2022 14:56-0500 Body temperature 97.1 [degF] Dr. Wilver Jones Work Phone: [facility] Work Phone: 01-06-2022 14:56-0500 Body weight 77.[address] Wilver Jones Work Phone: [facility] Work Phone: 01-02-2022 16:08-0500 Body temperature 98.2 [degF] Dr. Wilver Jones Work Phone: [facility] Work Phone: 01-02-2022 16:08-0500 Diastolic blood pressure 98 mm[Hg] Dr. Wilver Jones Work Phone: [facility] Work Phone: 01-02-2022 16:08-0500 Heart rate 90 /min Dr. Wilver Jones Work Phone: [facility] Work Phone: 01-02-2022 16:08-0500 Respiratory rate 20 /min Dr. Wilver Jones Work Phone: [facility] Work Phone: 01-02-2022 16:08-0500 SaO2% (BldA) [Mass fraction] 99 % Dr. Wilver Jones Work Phone: [facility] Work Phone: 01-02-2022 16:08-0500 Systolic blood pressure 142 mm[Hg] Dr. Wilver Jones Work Phone: [facility] Work Phone: 12-20-2021 04:10-0400 Body height 162.56 cm [facility] Work Phone: 12-20-2021 04:10-0400 Body mass index (BMI) [Ratio] 29.9 kg/m2 [facility] Work Phone: 12-20-2021 04:10-0400 Body temperature 97.9 [degF] [facility] Work Phone: 12-20-2021 04:10-0400 Body weight 79.1 kg [facility] Work Phone: 12-20-2021 04:10-0400 Diastolic blood pressure 82 mm[Hg] [facility] Work Phone: 12-20-2021 04:10-0400 Heart rate 77 /min [facility] Work Phone: 12-20-2021 04:10-0400 Respiratory rate 18 /min [facility] Work Phone: 12-20-2021 04:10-0400 SaO2% (BldA) [Mass fraction] 99 % [facility] Work Phone: 12-20-2021 04:10-0400 Systolic blood pressure 127 mm[Hg] [facility] Work Phone: 09-29-2021 13:34-0400 Diastolic blood pressure 82 mm[Hg] Katherine Lozano PRODUCTION MAINTENANCE MECHANIC.CLINICAL APPLICATION CONSULTANT Work Phone: [facility] 09-29-2021 13:34-0400 Heart rate 113 /min Katherine Lozano PRODUCTION MAINTENANCE MECHANIC.CLINICAL APPLICATION CONSULTANT Work Phone: [facility] 09-29-2021 13:34-0400 Respiratory rate 18 /min Katherine Lozano PRODUCTION MAINTENANCE MECHANIC.CLINICAL APPLICATION CONSULTANT Work Phone: [facility] 09-29-2021 13:34-0400 SaO2% (BldA) [Mass fraction] 97 % Katherine Lozano PRODUCTION MAINTENANCE MECHANIC.CLINICAL APPLICATION CONSULTANT Work Phone: [facility] 09-29-2021 13:34-0400 Systolic blood pressure 118 mm[Hg] Katherine Lozano PRODUCTION MAINTENANCE MECHANIC.CLINICAL APPLICATION CONSULTANT Work Phone: [facility] 08-20-2021 10:45-0400 Body weight 76.2 kg Katherine Lozano PRODUCTION MAINTENANCE MECHANIC.CLINICAL APPLICATION CONSULTANT Work Phone: [facility] 08-20-2021 10:45-0400 Diastolic blood pressure 70 mm[Hg] Katherine Lozano PRODUCTION MAINTENANCE MECHANIC.CLINICAL APPLICATION CONSULTANT Work Phone: [facility] 08-20-2021 10:45-0400 Heart rate 104 /min Katherine Lozano PRODUCTION MAINTENANCE MECHANIC.CLINICAL APPLICATION CONSULTANT Work Phone: [facility] 08-20-2021 10:45-0400 Respiratory rate 18 /min Katherine Lozano PRODUCTION MAINTENANCE MECHANIC.CLINICAL APPLICATION CONSULTANT Work Phone: [facility] 08-20-2021 10:45-0400 SaO2% (BldA) [Mass fraction] 99 % Katherine Lozano PRODUCTION MAINTENANCE MECHANIC.CLINICAL APPLICATION CONSULTANT Work Phone: [facility] 08-20-2021 10:45-0400 Systolic blood pressure 100 mm[Hg] Katherine Lozano PRODUCTION MAINTENANCE MECHANIC.CLINICAL APPLICATION CONSULTANT Work Phone: [facility] 10-08-2016 12:05-0400 BMI (Body Mass Index) 29.62 kg/m2 Natalya Griffith LPN [facility] Work Phone: 10-08-2016 12:05-0400 Body Temperature 99 [degF] Natalya Griffith LPN [facility] Work Phone: 10-08-2016 12:05-0400 BP Diastolic 64 mm[Hg] Natalya Griffith LPN [facility] Work Phone: 10-08-2016 12:05-0400 BP Systolic 124 mm[Hg] Natalya Griffith LPN [facility] Work Phone: 10-08-2016 12:05-0400 Height 162.56 cm Natalya Griffith LPN [facility] Work Phone: 10-08-2016 12:05-0400 Pulse (Heart Rate) 102 /min Natalya Griffith LPN [facility] Work Phone: 10-08-2016 12:05-0400 Respiratory Rate 12 /min Natalya Griffith LPN [facility] Work Phone: 10-08-2016 12:05-0400 Weight 78.29 kg Natalya Griffith LPN [facility] Work Phone: Encounters Encounter Date Encounter Type Care Provider Facility Start: 06-04-2024 End: 06-04-2024 ambulatory [facility] Facility:[facility] Start: 05-28-2024 End: 05-28-2024 ambulatory [facility] Facility:[facility] Start: 05-28-2024 End: 05-28-2024 Patient encounter procedure Paul SKY Work Phone: [facility] Comment on above: Sore throat (Primary Dx); Bilateral impacted cerumen; URI, acute Start: 05-10-2024 End: 05-10-2024 ambulatory Lilibeth Pino RN NURSE ENDOSCOPE TECHNICIAN Comment on above: Chest Pain Start: 05-08-2024 End: 05-08-2024 Refill Wilver Jones MD Work Phone: [facility] Comment on above: Refill Request Start: 04-04-2024 End: 04-04-2024 ambulatory Katherine Lozano APRN.CLINICAL APPLICATION CONSULTANT Work Phone: [facility] [place] Comment on above: COVID-19 (Primary Dx ) Start: 04-04-2024 End: 04-04-2024 Telemedicine consultation with patient Katherine Marta SAL.CLINICAL APPLICATION CONSULTANT Work Phone: [facility] [place] Start: 03-23-2024 End: 03-23-2024 Refill Wilver Jones MD Work Phone: Family [facility] Comment on above: Refill Request Start: 12-27-2023 End: 12-27-2023 amb[facility] Facility[facility] Start: 11-15-2023 End: 11-15-2023 ambulatory [facility] Facility:[facility] Start: 11-09-2023 End: 11-09-2023 Refill Wilver Jones MD Work Phone: [facility] Comment on above: Refill Request Start: 10-19-2023 End: 10-19-2023 Patient encounter procedure Wilver Jones MD Work Phone: [facility] Comment on above: Mixed hyperlipidemia (Primary Dx); Gastroesophageal reflux disease, unspecified whether esophagitis present; Anxiety with depression; Tarsal tunnel syndrome of right side; Foot pain, right; Neuropathy of right peroneal nerve; Encounter for screening mammogram for malignant neoplasm of breast; Vitamin D deficiency Start: 10-19-2023 End: 10-19-2023 ambulatory [facility] Facility:[facility] Start: 10-19-2023 End: 10-20-2023 Telephone encounter Wilver Jones MD Work Phone: [address] [place] [address] Comment on above: Orders Start: 09-15-2023 End: 09-15-2023 Patient encounter procedure Lorena Warner APRN.CLINICAL APPLICATION CONSULTANT Work Phone: [facility] Comment on above: Dizziness (Primary D x) Start: 09-15-2023 End: 09-15-2023 ambulatory Wilver Jones MD Work Phone: [facility] Comment on above: Dizziness Start: 09-03-2023 Refill Wilver Jones MD Work Phone: [facility] Comment on above: Refill Request Start: 08-03-2023 End: 08-03-2023 ambulatory WILVER JONES MD Facility:[facility] Start: 08-03-2023 Telephone encounter Jennifer rothman APRN.CLINICAL APPLICATION CONSULTANT Work Phone: [facility] Comment on above: Results Start: 08-02-2023 End: 08-02-2023 ambulatory [facility] Facility:[facility] Start: 08-02-2023 End: 08-02-2023 Office outpatient visit 25 minutes Johnathan Chavez APRN.CNP Work Phone: [facility] Comment on above: Urinary frequency (P rimary Dx) Start: 07-29-2023 End: 07-29-2023 ambulatory [facility] Facility:[facility] Start: 07-19-2023 End: 07-19-2023 Patient encounter procedure Wilver Jones MD Work Phone: [facility] [place] Comment on above: Tarsal tunnel syndro me of right side (Primary Dx); Gastroesophageal reflux disease, unspecified whether esophagitis present; Anxiety with depression; Neuropathy of right peroneal nerve Start: 07-19-2023 End: 07-19-2023 ambulatory [facility] Facility:[facility] Start: 06-30-2023 Admission to [facility] Luis Angel Lopez MD Work Phone: General Surgery Comment on above: Prilosec Refill Request Start: 06-30-2023 ambulatory Luis Angel be MD Work Phone: General Surgery Start: 06-09-2023 Telephone encounter Wilver Jones MD Work Phone: [facility] [place] Comment on above: Letter Start: 06-09-2023 End: 06-09-[address] Wilver Jones Work Phone: [facility] Work Phone: Start: 06-09-2023 End: 06-09-[address] Wilver Jones Work Phone: [facility]-Physical Therapy Work Phone: Start: 05-27-2023 ambulatory Wilver Jones MD Work Phone: Family [facility] Comment on above: Answers Start: 05-13-2023 Refill Luis Angel be MD Work Phone: Ambulatory Surgery Comment on above: Refill Request Start: 05-11-2023 Non-patient / Non-visit Dr. Padmini Jones Work Phone: [facility] Start: 05-11-2023 End: 05-11-[address] Wilver Jones Work Phone: [facility] Work Phone: Start: 05-11-2023 End: 05-11-[address] Wilver Jones Work Phone: [facility]-Pulmonary Services/Neurology Work Phone: Start: 05-07-2023 End: 05-07-2023 Patient encounter procedure Wilver Jones MD Work Phone: [facility] Comment on above: Bacterial sinusitis (Primary Dx); Foot pain, right; Sciatica, right side; Lymphadenopathy, cervical; History of otitis Start: 05-05-[address] Fredy Jones Work Phone: [facility]-Physical Therapy Work Phone: Start: 05-02-2023 End: 05-02-2023 Emergency department patient visit [facility]-Emergency Department Work Phone: Start: 04-28-2023 End: 04-28-2023 ambulatory [facility] Work Phone: Start: 04-28-2023 End: 04-28-2023 Patient encounter procedure [facility]-Radiology, [facility] Work Phone: Start: 04-26-[address] [facility]-Physical Therapy Work Phone: Start: 04-08-2023 End: 04-08-2023 Patient encounter procedure Arnoldo Mccloud MD Work Phone: [facility] Comment on above: Right acute suppurat rhys otitis media (Primary Dx); Bilateral impacted cerumen Start: 03-29-2023 Telephone encounter Wilver Jones MD Work Phone: [facility] Comment on above: Forms (Office of [employer], 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, [facility]) Start: 03-26-2023 ambulatory Wilver Jones MD Work Phone: Family Medicine [facility] Comment on above: Covid test Start: 03-25-2023 End: 03-25-2023 ambulatory Wilver Jones MD Work Phone: Family [facility] Comment on above: Pain in both feet (P rimary Dx) Start: 03-25-2023 End: 03-25-2023 Telemedicine consultation with patient Wilver Jones MD Work Phone: [facility] Start: 03-24-2023 Telephone encounter Wilver Jones MD Work Phone: [facility] Comment on above: Appointment Start: 03-23-2023 End: 03-23-2023 Office outpatient visit 10 minutes Clover Martin APRN.MOLD MOVER Work Phone: [facility] Comment on above: Foot pain, bilateral (Primary Dx) Start: 01-14-2023 Telephone encounter Wilver Jones MD Work Phone: Pulmonology [facility] Comment on above: Results Start: 01-13-2023 End: 01-13-2023 Patient encounter procedure Wilver Jones MD Work Phone: [facility] Comment on above: Mixed hyperlipidemia (Primary Dx); Gastroesophageal reflux disease, unspecified whether esophagitis present; Anxiety with depression; Vitamin D deficiency; Need for hepatitis C screening test; Screening for HIV (human immunodeficiency virus) Start: 01-05-2023 End: 01-05-2023 ambulatory [facility] Work Phone: Start: 01-05-2023 End: 01-05-2023 Discharged Recurring [facility]-Physical Therapy Work Phone: Start: 12-25-2022 End: 12-25-2022 Patient encounter procedure Luis Angel Lopez MD Work Phone: General Surgery Comment on above: Diarrhea, unspecifie d type (Primary Dx); Gastroesophageal reflux disease without esophagitis; Rectal bleeding Start: 12-25-2022 End: 12-21-2023 Telephone encounter Luis Angel Lopez MD Work Phone: General Surgery Comment on above: 02/23/2023 COLON/EGD A SC Start: 12-11-2022 Refill Wilver Jones MD Work Phone: [facility] Comment on above: Refill Request Start: 11-03-2022 End: 11-03-2022 Patient encounter procedure Wilver Jones MD Work Phone: [facility] Comment on above: GERD without esophag itis (Primary Dx) Start: 10-23-2022 End: 10-23-2022 Admission to same day surgery center [facility]-Surgical Day Care Start: 10-23-2022 End: 10-23-2022 [facility] Work Phone: Start: 10-14-2022 Telephone encounter Wilver Jones MD Work Phone: [facility] Comment on above: Results Start: 10-13-2022 End: 10-13-2022 Orders Only Wilver Jones MD Work Phone: [facility] Comment on above: Abnormal mammogram ( Primary Dx) Abnormal mammogram [ R92.8] Start: 10-12-2022 End: 10-12-2022 Patient encounter procedure Katherine Lozano APRN.CLINICAL APPLICATION CONSULTANT Work Phone: [facility] Comment on above: Preop examination (P rimary Dx); Plantar fasciitis Start: 10-12-2022 End: 10-12-2022 Preprocedural examination done Katherine Lozano APRN.CLINICAL APPLICATION CONSULTANT Work Phone: [facility] Work Phone: Start: 10-06-2022 Telephone encounter Wilver Jones MD Work Phone: [facility] Comment on above: Medical Clearance (F oot surgery) Start: 09-01-2022 End: 09-01-2022 Patient encounter procedure Klaudia Cobb APRN.CLINICAL APPLICATION CONSULTANT Work Phone: OB/Gynecology Comment on above: Surveillance of prev iously prescribed intrauterine contraceptive device (Primary Dx); Intertrigo; Breast tenderness in female Start: 08-19-2022 End: 08-19-2022 [facility] Work Phone: Start: 08-19-2022 End: 08-19-2022 Discharged Recurring [facility]-Physical Therapy Work Phone: Start: 07-27-2022 End: 07-27-2022 Subsequent hospital visit by physician [facility] Work Phone: Radiology Comment on above: Dysmenorrhea [N94.6] Start: 07-22-2022 ambulatory WILVER JONES Facility :[facility] Start: 07-22-2022 End: 07-22-2022 Subsequent hospital visit by physician [facility] Work Phone: Molecular Imaging Comment on above: Other chest pain [R0 7.89] Start: 07-21-2022 Telephone encounter Huma ledbetter RN Cardiology Lab Comment on above: Reminder Call Start: 07-16-2022 Telephone encounter Wilver Jones MD Work Phone: [facility] [place] Comment on above: Results Start: 07-16-2022 End: 07-16-2022 Emergency department patient visit [facility]-Emergency Department Start: 07-15-[address] [facility]-Physical Therapy Start: 07-15-2022 End: 07-15-2022 Patient encounter procedure Klaudia Cobb APRN.CNP Work Phone: OB/Gynecology Comment on above: Encounter for gyneco logical examination with abnormal finding (Primary Dx); Dysmenorrhea; Screening for cervical cancer; Encounter for screening for human papillomavirus (HPV); Encounter for screening mammogram for breast cancer; Menstrual migraine without status migrainosus, not intractable Start: 07-15-2022 End: 07-15-2022 Patient encounter status Klaudia Cobb APRN.CNP Work Phone: OB/Gynecology Start: 07-15-2022 End: 07-15-2022 Subsequent hospital visit by physician [facility] Comment on above: Encounter for screen ing mammogram for malignant neoplasm of breast [Z12.31] Start: 07-10-[address] [facility]-Physical Therapy Start: 07-06-2022 End: 07-06-2022 ambulatory [facility] Work Phone: Start: 07-06-2022 End: 07-06-2022 Patient encounter procedure [facility] Start: 06-26-2022 End: 06-26-2022 Office outpatient visit 25 minutes Katherine Lozano APRN.CLINICAL APPLICATION CONSULTANT Work Phone: [facility] Comment on above: Other chest pain (Pr imary Dx); Acute bilateral low back pain without sciatica; ENRIKE (generalized anxiety disorder) Start: 06-24-2022 Telephone encounter Wilver Jones MD Work Phone: [facility] Comment on above: Results Start: 06-22-2022 Telephone encounter Wilver Jones MD Work Phone: [facility] Comment on above: Medication Request Start: 06-13-2022 End: 06-13-2022 Emergency department patient visit [facility]-Emergency Department Start: 06-04-2022 Telephone encounter Wilver Jones MD Work Phone: [facility] Comment on above: Patient Update Start: 06-01-2022 Telephone encounter Wilver Jones MD Work Phone: [facility] Comment on above: Results, Lab Start: 05-28-2022 End: 05-28-2022 Patient encounter procedure Wilver Jones MD Work Phone: [facility] Comment on above: Anxiety with depress ion (Primary Dx); Mixed hyperlipidemia; Vertigo; Myalgias; Plantar fasciitis; Elevated blood pressure reading without diagnosis of hypertension Start: 05-18-2022 Telephone encounter Elodia Sandoval APRN.CLINICAL APPLICATION CONSULTANT Work Phone: [facility] Comment on above: Results Start: 05-16-2022 End: 05-16-2022 Patient encounter procedure Jennifer Hopkins PRODUCTION MAINTENANCE MECHANIC.CLINICAL APPLICATION CONSULTANT Work Phone: [facility] Comment on above: Dysuria (Primary Dx) ; Itching in the vaginal area Start: 04-17-2022 Telephone encounter Katherine wagner APRN.CLINICAL APPLICATION CONSULTANT Work Phone: Family [facility] Comment on above: fax PT order [facility] Start: 04-07-2022 End: 04-07-2022 Patient encounter procedure Yaerly Dawkins MD Work Phone: Allergy Comment on above: Pruritic disorder (P rimary Dx); Dermatographic urticaria; Chronic rhinitis; Postnasal drip Start: 04-01-2022 ambulatory Wilver Jones MD Work Phone: [facility] [place] Start: 04-01-2022 End: 04-01-2022 Office outpatient visit 15 minutes Katherine Lozano APRN.CLINICAL APPLICATION CONSULTANT Work Phone: [facility] [place] Comment on above: Eustachian tube diso rder, left (Primary Dx); Dermatographic urticaria; Itching; Dizziness; Bilateral impacted cerumen Start: 03-26-2022 ambulatory Valeria Noriega MA [facility] Comment on above: Population Health Na vigation Outreach ([facility] Medicaid Project/) Start: 02-04-2022 End: 02-04-2022 Patient encounter procedure Wilver Jones MD Work Phone: [facility] Comment on above: Vertigo (Primary Dx) ; Gastroesophageal reflux disease, unspecified whether esophagitis present; Bipolar affective disorder, remission status unspecified ([facility]) Start: 01-28-2022 End: 01-28-2022 ambulatory Jennifer Phillips PT [facility] Physical Therapy Comment on above: Vertigo (Primary Dx) Start: 01-28-2022 Follow-up encounter Kj Edwards PA-C Work Phone: Family [facility] Comment on above: Vertigo follow up Start: 01-23-2022 End: 01-23-2022 Patient encounter procedure Kj Edwards PA-C Work Phone: [facility] [place] Comment on above: Chronic vertigo (Keshia elaine Dx); Tinnitus of right ear Start: 01-16-2022 Telephone encounter Wilver Jones MD Work Phone: [facility] [place] Comment on above: Forms Start: 01-09-2022 End: 01-09-2022 Patient encounter procedure Wilver Jnoes MD Work Phone: [facility] Comment on above: Vertigo (Primary Dx) Start: 01-06-2022 End: 01-06-2022 Emergency department patient [facility] Dr. [facility] Start: 01-02-2022 End: 01-02-[address] Wilver Jones Work Phone: [facility] Start: 12-20-2021 End: 12-20-2021 [facility] Start: 09-29-2021 End: 09-29-2021 Office outpatient visit 15 minutes Katherine Lozano APRN.CLINICAL APPLICATION CONSULTANT Work Phone: [facility] Comment on above: Dermatographic urtic aria (Primary Dx) Start: 08-27-2021 Telephone encounter Wilver Jones MD Work Phone: [facility] Comment on above: Vaginal Problem Start: 08-20-2021 End: 08-20-2021 Patient encounter procedure Katherine Lozano APRN.CLINICAL APPLICATION CONSULTANT Work Phone: [facility] Comment on above: ENRIKE (generalized anx iety disorder) (Primary Dx) Start: 05-15-2021 ambulatory Hugh SKY-C Work Phone: [facility] Comment on above: Lumbar MRI scan janett ed Start: 05-15-2021 E-mail encounter fro m caregiver Hugh NUNEZC Work Phone: [facility] Procedures Date Procedure Procedure Detail Performing Clinician Start: 05-28-2024 Removal impacted cer umen irrigation/lvg unilat Paul Greenwood PA Work Phone: Start: 05-28-2024 STREP A MOLECULAR (POC) Paul Greenwood PA Work Phone: Start: 05-02-2023 Streptococcus pyogen es rRNA assay Start: 05-02-2023 CT of soft tissues o f neck with contrast Start: 04-28-2023 X-ray of lumbosacral spine Start: 03-02-2023 Colonoscopy Clover Suppan PRODUCTION MAINTENANCE MECHANIC.MOLD MOVER Work Phone: Start: 10-23-2022 Fasciotomy of foot Start: 10-13-2022 Us breast uni real t kamron with image limited Wilver Jones MD Work Phone: Start: 10-13-2022 Mammography Wilver Nuñez MD Work Phone: Start: 07-27-2022 Us transvaginal Klaudia Farhan grimaldo PRODUCTION MAINTENANCE MECHANIC.CLINICAL APPLICATION CONSULTANT Work Phone: Start: 07-22-2022 Non-HEU TC-99M add-on/dose Katherine Lozano PRODUCTION MAINTENANCE MECHANIC.CLINICAL APPLICATION CONSULTANT Work Phone: Start: 07-15-2022 End: 07-15-2022 Mammography Wilver Jones MD Work Phone: Start: 07-06-2022 MRI of joint of lowe r extremity Start: 06-13-2022 Plain chest X-ray Start: 05-16-2022 Urnls dip stick/tabl et rgnt auto w/o microscopy Jennifer Hopkins PRODUCTION MAINTENANCE MECHANIC.CLINICAL APPLICATION CONSULTANT Work Phone: Start: 08-16-2020 Adult depression scr eening assessment Hugh Stevens PA-C Work Phone: Start: 10-08-2016 End: 10-08-2016 Kenalog per 10 mg Mart SKY Work Phone: Plan of Treatment Date Care Activity Detail Author Start: 03-02-2033 Screening for malign ant neoplasm of colon [facility] Start: 03-12-2030 Urine microalbumin profile DTaP,Tdap,Td Vaccine (10 - Td or Tdap) [facility] Start: 07-16-2027 HPV TESTING HPV TESTING [facility] Start: 07-16-2027 PAP TESTING PAP TESTING [facility] Start: 07-16-2027 Screening for malign ant neoplasm of cervix [facility] Start: 11-01-2024 End: 11-01-2024 Patient encounter procedure 11/01/2024 10:40 AM EDT Office Visit [facility] [address] [place] [id number] Wilver Jones MD [address] [place] [address] yearly [facility] [place] Comment on above: yearly Start: 10-18-2024 Covid-19 Vaccine () Covid-19 Vaccine () [facility] Comment on above: Postponed from 10/16 (Declined at this time) Start: 10-18-2024 Covid-19 Vaccine () Covid-19 Vaccine () [facility] Comment on above: Postponed from 10/16 (Declined at this time) Start: 01-14-2024 Covid-19 Vaccine () Covid-19 Vaccine () [facility] Comment on above: Postponed from 10/16 (Declined at this time) Start: 01-14-2024 Hepatitis B Vaccine (2 of 3 - 3-dose series) Hepatitis B Vaccine (2 of 3 - 3-dose series) [facility] Comment on above: Postponed from 10/31 (Declined at this time) Start: 01-14-2024 Pneumococcal vaccination [facility] Comment on above: Postponed from 02/16 (Declined at this time) Start: 10-19-2023 End: 10-19-2023 Patient encounter procedure 10/19/2023 2:40 PM EDT Office Visit [facility] [place] [address] [place] [address] Wilver Jones MD [address] [facility] [place] [address] 3 month follow up [facility] [place] Comment on above: 3 month follow up Start: 10-19-2023 End: 01-18-2024 25-hydroxyvitamin D3 [Mass/volume] in Serum or Plasma VITAMIN D 25 HYDROXY Lab Routine Vitamin D deficiency Expected: 10/19/2023, Expires: 01/18/2024 [facility] Comment on above: Expected: 10/19/2023 , Expires: 01/18/2024 Start: 10-19-2023 End: 01-18-2024 CBC W Auto Differential panel - Blood COMPLETE BLOOD COUNT AND DIFFERENTIAL Lab Routine Anxiety with depression Expected: 10/19/2023, Expires: 01/18/2024 [facility] Comment on above: Expected: 10/19/2023 , Expires: 01/18/2024 Start: 10-19-2023 End: 01-18-2024 Comprehensive metabolic 2000 panel - Serum or Plasma COMPREHENSIVE METABOLIC PANEL Lab Routine Mixed hyperlipidemia Expected: 10/19/2023, Expires: 01/18/2024 [facility] Comment on above: Expected: 10/19/2023 , Expires: 01/18/2024 Start: 10-19-2023 End: 01-18-2024 Lipid 1996 panel - Serum or Plasma LIPID PANEL BASIC Lab Routine Mixed hyperlipidemia Expected: 10/19/2023, Expires: 01/18/2024 [facility] Comment on above: Expected: 10/19/2023 , Expires: 01/18/2024 Start: 10-17-2023 Influenza vaccination [facility] Start: 10-14-2023 Mammography [facility] Start: 10-14-2023 Screening for malign ant neoplasm of breast Mammogram Screening [facility] Start: 08-15-2023 Influenza vaccination Influenza Vacc ine (#1) [facility] Comment on above: Postponed from 10/16 (Declined at this time) Start: 07-19-2023 End: 07-19-2023 Patient encounter procedure 07/19/2023 2:40 PM EDT Office Visit [facility] [place] [address] [place] [id number] Wilver Jones MD [address] [place] [address] 6 month follow up [facility] [place] Comment on above: 6 month follow up Start: 07-16-2023 Mammography MAMMOGRAM [facility] Start: 05-02-2023 [place] [facility] Start: 04-15-2023 End: 11-12-2023 ANSELMO DIAGNOSTIC RIGHT ANSELMO DIAGNOSTIC RIGHT Radiology Routine Abnormal mammogram Expected: 04/15/2023, Expires: 11/12/2023 [facility] Work Phone: Comment on above: Expected: 04/15/2023 , Expires: 11/12/2023 Start: 04-15-2023 End: 11-12-2023 US BREAST LTD RIGHT US BREAST LTD RIGHT Radiology Routine Abnormal mammogram Expected: 04/15/2023, Expires: 11/12/2023 [facility] Work Phone: Comment on above: Expected: 04/15/2023 , Expires: 11/12/2023 Start: 02-25-2023 End: 01-14-2024 25-hydroxyvitamin D3 [Mass/volume] in Serum or Plasma VITAMIN D 25 HYDROXY Lab Routine Vitamin D deficiency Expected: 02/25/2023, Expires: 01/14/2024 [facility] Work Phone: Comment on above: Expected: 02/25/2023 , Expires: 01/14/2024 Start: 01-13-2023 End: 04-14-2023 25-hydroxyvitamin D3 [Mass/volume] in Serum or Plasma [facility] Work Phone: Comment on above: Expected: 01/13/2023 , Expires: 04/14/2023 Start: 01-13-2023 End: 04-14-2023 Hepatitis C virus Ab [Presence] in Serum [facility] Work Phone: Comment on above: Expected: 01/13/2023 , Expires: 04/14/2023 Start: 01-13-2023 End: 04-14-2023 HIV 1+2 Ab [Presence] in Serum or Plasma by Immunoassay [facility] Work Phone: Comment on above: Expected: 01/13/2023 , Expires: 04/14/2023 Start: 10-23-2022 Patient discharge [facility] Start: 10-23-2022 Fluoroscopic guidance O.R. Fluoro fo r C-Arm [facility] Start: 10-23-2022 Radiography of foot Foot 2 Views [facility] Start: 10-23-2022 Anesthesia arthrosco pic procedure ankle & foot ANESTH ANKLE/FT ARTHROSCOPY [facility] Start: 10-23-2022 Endoscopic plantar fasciotomy SCOPE PLANTAR FASCIOTOMY [facility] Start: 10-16-2022 Covid-19 Vaccine () Covid-19 Vaccine () [facility] Start: 10-16-2022 Influenza vaccination [facility] Start: 08-05-2022 End: 06-24-2023 25-hydroxyvitamin D3 [Mass/volume] in Serum or Plasma VITAMIN D 25 HYDROXY Lab Routine Vitamin D deficiency Expected: 08/05/2022, Expires: 06/24/2023 [facility] Work Phone: Comment on above: Expected: 08/05/2022 , Expires: 06/24/2023 Start: 07-27-2022 End: 09-26-2022 Parathyrin.intact [Mass/volume] in Serum or Plasma PTH INTACT BLD Lab Routine Vitamin D deficiency Expected: 07/27/2022, Expires: 09/26/2022 [facility] Work Phone: Comment on above: Expected: 07/27/2022 , Expires: 09/26/2022 Start: 07-15-2022 End: 07-16-2023 PELVIC US WHI PELVIC US I Anc Imaging Routine Dysmenorrhea Expected: 07/15/2022, Expires: 07/16/2023 [facility] Work Phone: Comment on above: Expected: 07/15/2022 , Expires: 07/16/2023 Start: 06-24-2022 End: 08-24-2022 Parathyrin.intact [Mass/volume] in Serum or Plasma PTH INTACT BLD Lab Routine Vitamin D deficiency Expected: 06/24/2022, Expires: 08/24/2022 [facility] Work Phone: Comment on above: Expected: 06/24/2022 , Expires: 08/24/2022 Start: 06-01-2022 End: 06-02-2023 25-hydroxyvitamin D3 [Mass/volume] in Serum or Plasma VITAMIN D 25 HYDROXY Lab Routine Hyperglycemia Hypercalcemia Expected: 06/01/2022, Expires: 06/02/2023 [facility] Work Phone: Comment on above: Expected: 06/01/2022 , Expires: 06/02/2023 Start: 06-01-2022 End: 06-02-2023 Calcium.ionized [Moles/volume] in Blood CALCIUM IONIZED BLOOD Lab Routine Hyperglycemia Hypercalcemia Expected: 06/01/2022, Expires: 06/02/2023 [facility] Work Phone: Comment on above: Expected: 06/01/2022 , Expires: 06/02/2023 Start: 06-01-2022 End: 08-01-2022 Hemoglobin A1c in Blood HGB A1C Lab Routine Hyperglycemia Hypercalcemia Expected: 06/01/2022, Expires: 08/01/2022 [facility] Work Phone: Comment on above: Expected: 06/01/2022 , Expires: 08/01/2022 Start: 06-01-2022 End: 06-02-2023 Parathyrin.intact [Mass/volume] in Serum or Plasma PTH INTACT BLD Lab Routine Hyperglycemia Hypercalcemia Expected: 06/01/2022, Expires: 06/02/2023 [facility] Work Phone: Comment on above: Expected: 06/01/2022 , Expires: 06/02/2023 Start: 05-29-2022 End: 05-29-2023 AMY BY IFA SCREEN AMY BY IFA SCREEN Lab Routine Myalgias Expected: 05/29/2022, Expires: 05/29/2023 [facility] Work Phone: Comment on above: Expected: 05/29/2022 , Expires: 05/29/2023 Start: 05-29-2022 End: 05-29-2023 C reactive protein [Mass/volume] in Serum or Plasma C-REACTIVE PROTEIN (CRP) Lab Routine Myalgias Expected: 05/29/2022, Expires: 05/29/2023 [facility] Work Phone: Comment on above: Expected: 05/29/2022 , Expires: 05/29/2023 Start: 05-29-2022 End: 05-29-2023 CBC W Auto Differential panel - Blood CBC + DIFF Lab Routine Anxiety with depression Expected: 05/29/2022, Expires: 05/29/2023 [facility] Work Phone: Comment on above: Expected: 05/29/2022 , Expires: 05/29/2023 Start: 05-29-2022 End: 05-29-2023 Comprehensive metabolic 2000 panel - Serum or Plasma COMP METABOLIC PANEL Lab Routine Mixed hyperlipidemia Expected: 05/29/2022, Expires: 05/29/2023 [facility] Work Phone: Comment on above: Expected: 05/29/2022 , Expires: 05/29/2023 Start: 05-29-2022 End: 05-29-2023 Erythrocyte sedimentation rate SED RATE WESTERGREN Lab Routine Myalgias Expected: 05/29/2022, Expires: 05/29/2023 [facility] Work Phone: Comment on above: Expected: 05/29/2022 , Expires: 05/29/2023 Start: 05-29-2022 End: 05-29-2023 Rheumatoid factor [Units/volume] in Serum or Plasma RHEUMATOID FACTOR BL Lab Routine Myalgias Expected: 05/29/2022, Expires: 05/29/2023 [facility] Work Phone: Comment on above: Expected: 05/29/2022 , Expires: 05/29/2023 Start: 05-29-2022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 errors in wording, punctuation, or spelling. Johnathan Chavez APRN.CLINICAL APPLICATION CONSULTANT documented in this encounter [facility] 07-19-2023 Note HNO ID: [id number] Author: WILVER JONES MD Service: ? Author Type: Physician Type: Progress Notes Filed: 07/19/2023 15:17 Note Text: Patient presents with: 6 Month Exam HPI: Patient presents today for office visit for follow up. PSYCH: Follows with psych. Continues on Fluoxetine and hydroxyzine. GERD: Continues on omeprazole 40 mg daily Symptoms controlled. Follow up on work restrictions for her feet. PT completed. Seeing Neuro on 08/03/23 MRI scheduled for 07/29/23 of her foot. Continues to be off work. So now has tarsal tunnel and right peroneal mononeuropathy. She is worried she is contemplating a surgery. 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 Will be able to rest as needed etc. She is not to be working for more than 2 hours at a time. She is hoping it will go through at this month. MEDICATIONS: Current Outpatient Medications Medication Sig FLUoxetine (PROZAC) 10 mg capsule Take 10 mg by mouth once daily. FLUoxetine (PROZAC) 20 mg capsule Take 20 mg by mouth once daily. omeprazole (PRILOSEC) 40 mg capsule Take 1 capsule by mouth once daily. cetirizine (ZYRTEC) 10 mg tablet Take [...] and negative other than HPI. VITALS: BP 90/66 Pulse 110 Ht 162.6 cm (5' 4) Wt 82.6 kg (182 lb) LMP 08/26/2022 (Exact Date) SpO2 97% BMI 31.24 kg/m? Last 4 Encounter Wt Readings: Date: Wt: 07/19/2023 82.6 kg (182 lb) 05/07/2023 81.6 kg (180 lb) 04/08/2023 79.3 kg (174 lb 12.8 oz) 03/23/2023 80.7 kg (178 lb) PHYSICAL EXAMINATION: General appearance: Well appearing, [...] or cyanosis. Good capillary refill. ASSESSMENT/PLAN: 1. Tarsal tunnel syndrome of right side - ICD9: 355.5, ICD10: G57.51 (primary diagnosis) Letter with work restrictions given. Await work up. 2. Gastroesophageal reflux disease, unspecified whether esophagitis present - ICD9: 530.81, ICD10: K21.9 3. Anxiety with depression - ICD9: 300.4, ICD10: F41.8 4. Neuropathy of right peroneal nerve - ICD9: 355.3, ICD10: G57.31 Wilver Jones MD [facility] 07-19-2023 History of Present illness Narrative Patient presents with: 6 Month Exam HPI: Patient presents today for office visit for follow up. PSYCH: Follows with psych. Continues on Fluoxetine and hydroxyzine. GERD: Continues on omeprazole 40 mg daily Symptoms controlled. Follow up on work restrictions for her feet. PT completed. Seeing Neuro on 08/03/23 MRI scheduled for 07/29/23 of her foot. Continues to be off work. So now has tarsal tunnel and right peroneal mononeuropathy. She is worried she is contemplating a surgery. 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 Will be able to rest as needed etc. She is not to be working for more than 2 hours at a time. She is hoping it will go through at this month. MEDICATIONS: Current Outpatient Medications Medication Sig FLUoxetine (PROZAC) 10 mg capsule Take 10 mg by mouth once daily. FLUoxetine (PROZAC) 20 mg capsule Take 20 mg by mouth once daily. omeprazole (PRILOSEC) 40 mg capsule Take 1 capsule by mouth once daily. cetirizine (ZYRTEC) 10 mg tablet Take [...] and negative other than HPI. VITALS: BP 90/66 Pulse 110 Ht 162.6 cm (5' 4) Wt 82.6 kg (182 lb) LMP 08/26/2022 (Exact Date) SpO2 97% BMI 31.24 kg/m Last 4 Encounter Wt Readings: Date: Wt: 07/19/2023 82.6 kg (182 lb) 05/07/2023 81.6 kg (180 lb) 04/08/2023 79.3 kg (174 lb 12.8 oz) 03/23/2023 80.7 kg (178 lb) PHYSICAL EXAMINATION: General appearance: Well appearing, [...] or cyanosis. Good capillary refill. ASSESSMENT/PLAN: 1. Tarsal tunnel syndrome of right side - ICD9: 355.5, ICD10: G57.51 (primary diagnosis) Letter with work restrictions given. Await work up. 2. Gastroesophageal reflux disease, unspecified whether esophagitis present - ICD9: 530.81, ICD10: K21.9 3. Anxiety with depression - ICD9: 300.4, ICD10: F41.8 4. Neuropathy of right peroneal nerve - ICD9: 355.3, ICD10: G57.31 Wilver Jones MD documented in this encounter [facility] 06-30-2023 Telephone encounter Note Patient phones requesting refills as follows: Requested Prescriptions Pending Prescriptions Disp Refills omeprazole (PRILOSEC) 40 mg capsule 30 capsule 3 Sig: Take 1 capsule by mouth once daily. Please review and advise. Melissa Betancourt MA [facility] 06-30-2023 Miscellaneous Notes Patient phones requesting refills as follows: Requested Prescriptions Pending Prescriptions Disp Refills omeprazole (PRILOSEC) 40 mg capsule 30 capsule 3 Sig: Take 1 capsule by mouth once daily. Please review and advise. Melissa Betancourt MA documented in this encounter [facility] 06-09-2023 Discharge summary Note Date/Time June 09, 2023 1:50pm [facility] [place] [address] / REHABILITATION SERVICES DISCHARGE SUMMARY MR#: [id number] Acct: [id number] Name: LENA CHAPARRO Rep #: [id number] : 1980 43 From: Shira Echavarria MP T Referring Dr.: RADHA Yuan Status: REG RCR Insurance: [facility] [employer]URANCE Discharge Summary D/C summary: It has been my pleasure to treat LENA CHAPARRO referred by Dr. Bal Yuan DPM, with the diagnosis of R Plantar Fascial Fibromatosis for a total of 8 visit(s). Discharge Date: 06/09/23 Please see the following information for a summary of their discharge status. Subjective Subjective: Pt reports that nothing has really changed. Se is now having issues on the R Lateral side of her R foot. She was walking off her deck on Wednesday and her foot went out from under her and she got a sharp pain and it went off for days and had to use the crutches that night. It is a little better today. Her foot Dr had her to a back x-ray and a nerve test. The nerve test came backwith tarsal tunnel and nerve in her R knee. She is thinking that might be the cause of the pain in her foot. She only did the US last visit and thinks it helped a little. She goes to see the foot Dr kelly. She sees the neurologist today. Pain R foot pain: Pain Intensity (Out of 10): 1 R knee pain: Pain Intensity (Out of 10): 1 Overall Improvement % Improvement: 0 Objective Objective/Function: Gait: walks with decrease stance time on the R LE with gait Stairs: up and down recip although much heistancy and get off the R LE descending the step R ankle MMT: 10 DF, PF 9.5, INV 5.2, EV 4.7 (decreased stregth.. pt reports that it hurts to MMT). Goals Goal 1:: I HEP Goal Progress: Goal Met Goal 2:: Be able to walk with normal gait pattern without antalgic gait Goal Progress: Not Progressing Goal 3:: Increase R ankle strength (at the time of the eval: R ankle MMT: 11.4DF, PF 10.5, INV 6.5, EV 6). Goal Progress: Not Progressing Plan Plan: 2X/ week for 6 weeks for R ankle AROM, stretching, strengthening, gait training and maybe a trial of US to help with inflammation. D/C Information Discharge Comments: DC PT to HEP d/c sentence: If there are questions or concerns regarding this patient's physical therapy, please feel free to call me at [phone]. Thank you for the referral of thispatient. Sincerely, Shira Echavarria, CHARY Balance/Gait/Functional tests Balance/Special Test Scores Lower Extremity Functional Score: 40 Improvement % Improvement: 0 <Electronically signed by Shira Echavarria MPT> 06/09/23 1350 CC: DPM Dr. Bal Yuan; Dr. Wilver Jones MD ~ Signed [facility] Work Phone: 1(966) 582-755804-24-2024 Telephone encounter Note* Telephone Encounter - Daja Villa MA - 06/09/2023 1:38 PM EDT Patient informed. She would like to bulk picker today. Taken to medical records. Daja Villa MA [place] [address]-24-2024 Miscellaneous Notes* Telephone Encounter - Daja Villa MA - 06/09/2023 1:38 PM EDT Patient informed. She would like to bulk picker today. Taken to medical records. Daja Villa MA * Telephone Encounter - Wilver Jones MD - 06/09/2023 1:12 PM EDT Emg reviewed. Letter printed. * Telephone Encounter - Maggie Ramierz LPN - 06/09/2023 1:05 PM EDT PATIENT is calling stated that she had a nerve test done at [facility] on 05/11/23, came back that she has tarsal tunnel in the ankle. PATIENT stated that she has something on with peroneal nerve by the kneeas well. PATIENT lost insurance so is not able to come into office. Patient had to reschedule neurology appointment due to loss of insurance. Patient is requesting another letter stating to be off work another 4 weeks. patient is not sure. Please advise further. Maggie Ramirez LPN documented in this encounterAcmc Healthcare [facility]04-24-2024 Telephone encounter Note * Telephone Encounter - Wilver Jones MD - 06/09/2023 1:12 PM EDT Emg reviewed. Letter printed. [facility]04-24-2024 Telephone encounter Note* Telephone Encounter - Maggie Ramirez LPN - 06/09/2023 1:05 PM EDT PATIENT is calling stated that she had a nerve test done at [facility] on 05/11/23, came back that she has tarsal tunnel in the ankle. PATIENT stated that she has something on with peroneal nerve by the kneeas well. PATIENT lost insurance so is not able to come into office. Patient had to reschedule neurology appointment due to loss of insurance. Patient is requesting another letter stating to be off work another 4 weeks. patient is not sure. Please advise further. Maggie Ramirez LPN [facility] Work Phone: 1(344) 840-740004-11-2024 Miscellaneous Notes* Telephone Encounter - Rachell Fajardo MA - 05/27/2023 2:45 PM EDT 06/08 at 340pm documented in this encounterAcmc Healthcare [facility]04-02-2024 Miscellaneous Notes* Telephone Encounter - Luis Angel Lopez MD - 05/18/2023 8:59 AM EDT Duplicate? documented in this encounterAcmc Healthcare System [facility]03-26-2024 Procedure [facility]03-22-2024 History of Present illness Narrative* Wilver Jones MD - 05/07/2023 8:48 AM EDT Patient presents with: Follow Up HPI: Patient presents today for office visit for follow up. Flu after her last virtual visit. Came to with congestion. Then some lymph node swelling in her neck. Cleared up but still having pain that goes into her ear and up into her head. Was seen in ER. Report is scanned into chart from 05/02/23 [facility] had labs and CT scan. CT showed just reactive lymphadenopathy. [place] likely to be viral in origin. Was on three weeks of amoxil prior to visit. No antibiotics since. Labs done as well in ER. Had felt swelling in the right, then the left. Now in the right again. No fever No sore throat Mild ear discomfort. Some cough. Some congestion. No nausea or vomiting or diarrhea. Was referred to ENT but has not done that yet and wanted to see us instead at first. Follow up on work restrictions for her feet. Has now been sent to physical therapy. Had back xray done but does not have reports. Does have some chronic sciatic nerve issues. Also getting emg. Was scheduled for May 18 but has been moved to June 10. Sees podiatry again May 16. Will keep her off work until June 14 See previous ov, copied and pasted. Her project program manager before has refused to complete and type of disability or time off paperwork and has stated it is up to primary care. She goes back to see him in two weeks. 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 We discussed that I can do that however she is not currently looking for permanent disability. She just desires time while on walker and then work restrictions. Will bring in form. I will keep her off while on walker and then re evaluate. MEDICATIONS: Current Outpatient Medications Medication Sig omeprazole [...] past medical history, surgical history, family history andsocial history today. REVIEW OF SYSTEMS All other reviewed and negative other than HPI. HEALTH MAINTENANCE: Reviewed health maintenance issues today and recommended the following in detail. There are no preventive care reminders to display for this patient. VITALS: BP 122/82 Pulse 85 Wt 81.6 kg (180 lb) LMP 08/26/2022 (Exact Date) SpO2 97% BMI 30.90 kg/m Last 4 Encounter Wt Readings: Date: Wt: 04/08/2023 79.3 kg (174 lb 12.8 oz) 03/23/2023 80.7 kg (178 lb) 01/13/2023 78.5 kg (173 lb) 12/25/2022 78 kg (172 lb) PHYSICAL EXAMINATION: General appearance: Well appearing, [...] teeth and gums normal, oropharynx normal Neck: no cervical lymphadenopathy. Lungs: Lungs clear to auscultation. No wheezing, rhonchi, rales Heart: RRR without murmur, gallop, or rubs. No ectopy Abdomen: Normal abdominal exam, Abdomen soft, non-tender. Bowel sounds normal. No masses, organomegaly Extremities: No deformities, edema, skin discoloration, clubbing or cyanosis. Good capillary refill. ASSESSMENT/PLAN: 1. Bacterial sinusitis - ICD9: 473.9, 041.9, ICD10: J32.9, B96.89 (primary diagnosis) - doxycycline. Discussed risks and benefits of new medication with the patient. Advised them to call if any side effects or questions. Red flags for re-assessment reviewed with patient in detail. Call if symptoms worsen at all or if not better in one to two weeks Reviewed diagnosis and treatment options in detail. Questions were answered. Patient expressed understanding of treatment plan. 2. Foot pain, right - ICD9: 729.5, ICD10: M79.671 - off work. 3. Sciatica, right side - ICD9: 724.3, ICD10: M54.31 - CONSULT TO PHYSICAL THERAPY 4. Lymphadenopathy, cervical - ICD9: 785.6, ICD10: R59.0 - will follow. Try antibiotics. Continue follow up. 5. History of otitis - ICD9: V12.49, ICD10: Z86.69 - resolved. Wilver Jones MD documented in this encounterAcmc Healthcare [facility]02-22-2024 History of Present illness Narrative* Arnoldo Mccloud MD - 04/08/2023 4:30 PM EST Patient presents with: Ear Pain: RIGHT ear with swollen lymphnodes DAVIN neck, congestion with yellow/green phlegm x 2 days HPI: Patient spouse and daughter were sick together. Daughter Dx with influenza B. She improved from flusymptoms 1 week ago. She had a painful cough 2 days ago. Right ear pain and sinus symptoms this morning. Mucus chunks have been green and yellow. Positive symptoms: Earache, Nasal Congestion, Rhinorrhea, Post nasal drainage, Malaise, neck ache, right samaritan ache Negative symptoms: Wheezing, Fever, Body Aches, [...] illness currently causing rhinorrhea and cough. Arnoldo Mccloud MD documented in this encounterAcmc Healthcare System [facility]igh02-12-2024 Miscellaneous Notes* Telephone Encounter - Daja Villa - 03/29/2023 2:32 PM EST Placed call to patient with no answer. Left detailed message informing her form was ready for bulk picker. Taking form to medical records for bulk picker. Daja Villa * Telephone Encounter - Wilver Jones MD - 03/29/2023 12:21 PM EST done * Telephone Encounter - Rachell Fajardo Ma - 03/29/2023 11:17 AM EST Type of form: Child Support Statement of Health Care Provider Form received via walk in When form is completed, call patient to bulk picker Form has been forwarded to Physician Desk: Dr. Yoan Fajardo Ma documented in this encounterAcmc Healthcare System [facility]igh02-08-2024 History of Present illness Narrative* Wilver Jones MD - 03/25/2023 10:40 AM EST Patient presents with: Recheck HPI:This Team Access Model visit is a virtual encounter. It required patient- provider interaction for the medical decision making as documented below. Patient has elected to have a visit through distance medicine I have communicated my name and active licensure. The patient's identity and physical location wereverified at the time of this visit. Either the patient or their legal packaging sales representative has been informed of the risks and benefits of -- and alternatives to -- treatment through a remote evaluation andconsents to proceed with the evaluation remotely. I have not see since 01/13. Saw Jodie Martin at office this week asking for time off work and left appointment before eval totally completed. I discussed with admin who met with her after. I agreed to see her free of charge today. Her project program manager before has refused to complete and type of disability or time off paperwork and has stated it is up to primary care. She goes back to see him in two weeks. 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 We discussed that I can do that [...] To start a walking regime in 2 weeks. Had an injection of steroidby the project program manager. States that she just wants paper signed by the courts that would put child support on hold. Rubber Molder refused to write her off work or [...] past medical history, surgical history, family history andsocial history today. REVIEW OF SYSTEMS All other [...] above. Wilver Jones MD documented in this encounterAcmc Healthcare System [facility]igh02-07-2024 Miscellaneous Notes* Telephone Encounter - Harriet Moon RN - 03/24/2023 1:45 PM EST Pt called and is notified of providers messageand instructions. Pt voices understanding. Harriet Moon RN * Telephone Encounter - Daja Villa - 03/24/2023 10:19 AM EST Scheduled patient for 40min VV with Dr. Jones tomorrow on his [facility] schedule. This was okay'd per Dr. Jones. Scheduled at 10:40. Placed call to Lena with no answer. Left detailed message for her explaining this to her. Advised her to call back and let us know she received the message. Daja Villa documented in this encounterAcmc Healthcare System [facility]igh02-06-2024 History of Present illness Narrative* Clover Martin APRN.MOLD MOVER - 03/23/2023 4:22 PM EST This is a 43 year old female [...] To start a walking regime in 2 weeks. Had an injection of steroidby the project program manager. States that she just wants paper signed by the courts that would put child support on hold. Rubber Molder refused to write her off work or [...] Presents in a cam walker per her project program manager. Psychosocial: Pt. Was offended that this provider offered assurance that condition is not lifelong.Became very belligerent. Began swearing and calling provider profane names. ASSESSMENT/PLAN: 1. Foot pain, bilateral - ICD9: 729.5, ICD10: M79.671, M79.672 Verified with project program manager's office that pt. Was placed in boot, [...] consultation with patient, 7 min. KVNG Melendrez APRN.MOLD MOVER The patient indicates understanding of these issues and agrees with the plan. documented in this encounterAcmc Healthcare System [facility]igh11-30-2023 Miscellaneous Notes* Telephone Encounter - Daja Villa - 01/14/2023 2:04 PM EST Patient informed and verbalized understanding. Daja Villa * Telephone Encounter - Wilver Jones MD - 01/14/2023 12:27 PM EST Labs are stable. Vit d is low. Add vit d once a week. Recheck level in eight weeks. documented in this encounterAcmc Healthcare System [facility]igh11-29-2023 History of Present illness Narrative* Wilver Jones MD - 01/13/2023 9:24 AM EST Patient presents with: Heartburn HPI: Patient presents today for office visit for follow up. Heartburn: Becoming more frequent and bothersome. Having issues almost daily at this point. Pepcid AC was working but stopped. Omeprazole didn't help when she used it. Already referred to surgery foregd. Is not taking her meds daily. Discussed avoiding risk factors for reflux. Discussed ibuprofen avoidance, limiting tobacco and diet. No bowel changes. Needs a work release to go back to work with no restrictions. Had surgery on foot back in Oct. Her project program manager declines to write any work slips. Currently [...] past medical history, surgical history, family history andsocial history today. REVIEW OF SYSTEMS Uses zyrtec for occasional physical urticaria. Still persistent. Has seen bundle helper for same. Saw cost accounting clerk. All other reviewed and negative other than [...] lbs. Wilver Jones MD documented in this encounterAcmc Healthcare System [facility]igh11-21-2023 Discharge summary Author Anurag Ruffin [facility] January 05, 2023 1:29pm Note Date/Time January 05, 2023 1:29pm [facility] Physical Therapy [facility] [address] [place] [address] / REHABILITATION SERVICES DISCHARGE SUMMARY MR#: [id number] Acct: [id number] Name: LENA CHAPARRO Rep #: [id number] : 1980 42 From: Cert. JAVED SoloT, OCS Referring DrArlette: RADHA Yuan Status: REG [facility] Insurance: [employer] [facility] Discharge Summary D/C summary: It has been my pleasure to treat LENA CHAPARRO referred by Dr. Bal Yuan DPM, with the diagnosis of PLANTAR FASCIAL FIBROMATOSIS for a total of 7 visit(s). Discharge Date: 01/05/23 Please see the following information for a summary of their discharge status. Subjective Subjective: Doing great no pain Pain Right Foot: Pain Intensity (Out of 10): 0 Overall Improvement % Improvement: 80 Objective Objective/Function: GAIT: reciprocal pattern AROM: ANKLE WFL DF 10 DEGREES MMT: 5/5 ANKLE Goals Goal 1:: Patient to be I with HEP for foot Goal Progress: Goal Met Goal 2:: Patient to improve AROM ankle DF by 5 degrees to improve gait Goal Progress: Goal Met Goal 3:: Patient to improve peak force G-S by 10# of force to improve gait Goal Progress: Goal Met Goal 4:: Patient to demonstrate 75% improvement with decrease PF pain and improve function. Goal Progress: Goal Met Goal 5:: Patient to improve LFES score by 5 points or > to improve function and QOL Goal Progress: Goal Met Goal 6:: Patient to normalize gait no pain Goal Progress: Goal Met Plan Plan: D/C D/C Information d/c sentence: If there are questions or concerns regarding this patient's physical therapy, please feel free to call me at [phone]. Thank you for the referral of thispatient. Sincerely, Anurag Ruffin PT, Cert MDT, OCS Balance/Gait/Functional tests Balance/Special Test Scores Lower Extremity Functional Score: 70 Improvement % Improvement: 80 <Electronically signed by Anurag Ruffin PT, Cert. T, OCS> 01/05/23 1329 CC: DPKj Yuan; Dr. Wilver Jones MD ~ JLA Signed [facility] Work Phone: [phone]) 127-790011-11-2023 History of Present illness Narrative* Luis Angel Lopez MD - 12/26/2022 6:46 AM EST HISTORY AND PHYSICAL Lena Chaparro 1980 REFERRING [...] has frequent loose stools which tend to alternatebetween diarrhea and at other times constipation. She [...] entered by the nurse and reviewed by ma Nursing Notes: Christina Dawson RN 12/25/2022 4:13 [...] failure, other cardiac issues, denies claudication, denies coldfeet, denies peripheral arterial stent. Respiratory: The patient [...] psychiatric medications, NOTES depression, and denies voices, deniessubstance abuse. Endocrine: The patient denies thyroid disorders, [...] nourished, well hydrated in no acute distress. Thepatient is oriented to time, place, and person. VITALS: Blood pressure 128/70, pulse 97, temperature 36.3 C (97.3 F), temperature source Temporal, resp. rate 16, weight 78 kg (172 lb), last menstrual period 08/26/2022, SpO2 96 %. Body mass index is 29.52 kg/m . HEENT: Normal cephalic, ataumatic, pupils are equally round, sclera are anicteric, mucous membranesare moist, oropharynx is clear. Neck has no [...] that complications can occur including failure to completethe endoscopy and perforation. The patient had the [...] me after the testing has been completed. Luis Angel Lopez MD documented in this encounterAcmc Healthcare [facility]igh11-10-2023 Telephone encounter Note * Telephone Encounter - Ghazala Magaña - 12/25/2022 4:23 PM EST 02/23/2023 COLON/EGD ASC Denied sooner date [facility]11-10-2023 Miscellaneous Notes* Telephone Encounter - Ghazala Magaña - 12/25/2022 4:23 PM EST 02/23/2023 COLON/EGD ASC Denied sooner date documented in this encounterAcmc Healthcare System [facility]igh11-10-2023 Nurse Note* Christina Dawson RN - 12/25/2022 4:12 PM EST REVIEW OF SYSTEMS: General: The patient denies [...] failure, other cardiac issues, denies claudication, denies coldfeet, denies peripheral arterial stent. Respiratory: The patient [...] psychiatric medications, NOTES depression, and denies voices, deniessubstance abuse. Endocrine: The patient denies thyroid disorders, [...] None Christina Dawson RN documented in this encounterAcmc Healthcare System [facility]igh11-10-2023 Instructions* Patient Instructions* Luis Angel Lopez MD - 12/25/2022 4:06 PM EST [...] If you do not have a responsible fleet driver (family member or friend) withyou to take you home, your exam cannot be done with sedation and will be cancelled. Please bring a list of all of your current medications, including any Irhd-kab-Vxrfmhv medications with you. Medications If you take insulin, diabetic medications or blood thinners such as Coumadin (warfarin), Plavix (clopidogrel), Ticlid (ticlopidine hydrochloride), Agrylin (anagrelide), Xarelto (Rivaroxaban), Pradaxa(Dabigatran), Eliquis (Apixaban), and Effient (Prasugrel). You MUST [...] every 15 minutes for a total of 2glasses. You may continue to drink clear liquids up to (three) 3 hours before your exam. 2 01/2019 documented in this encounterAcmc Healthcare System [facility]igh10-27-2023 Miscellaneous Notes* Telephone Encounter - Giselle Best - 12/11/2022 12:09 PM EDT Pharmacy verified in [facility] Patient has been identified by name and [...] advise. Giselle Sauceda Pss documented in this encounterAcmc Healthcare System [facility]igh09-19-2023 History of Present illness Narrative* Wilver Jones MD - 11/03/2022 2:06 PM EDT Patient presents with: Heartburn HPI: Patient presents [...] past medical history, surgical history, family history andsocial history today. REVIEW OF SYSTEMS All other [...] RELEASE Wilver Jones MD documented in this encounterAcmc Healthcare System [facility]igh09-08-2023 Procedure [facility]08-30-2023 Miscellaneous Notes* Telephone Encounter - Emili Gaspar RN - 10/14/2022 9:27 AM EDT Called and left a detailed voicemail notifying patient of providers message. Left phone # for pt sangeetha and set up 6 month f/u now. Also clinic phone number was left in case patient had any questions. * Telephone Encounter - Wilver Jones MD - 10/14/2022 9:12 AM EDT Patient never picked up the my chart message I sent her. Please let her know the results as below: Lena: Looks ok. I will place follow up on the us and mammogram in orders for six months. Dr Frost documented in this encounterAcmc Healthcare System [facility]igh08-29-2023 History of Present illness Narrative* Rachael Barnett RDMS - 10/13/2022 3:00 PM EDT Radiology Service Progress Note PATIENT NAME: Lena Chaparro DATE OF SERVICE: October 13, 2022 TIME: 4:27 PM PATIENT IDENTITY VERIFICATION COMPLETED USING TWO (2) IDENTIFIERS: Name and Date of confirmedby patient verbally. FALL SCREENING: Has the patient [...] 13, 2022 4:27 PM documented in this encounterAcmc Healthcare System Glen[facility]igh08-28-2023 History and physical note * Katherine Lozano APRN.CNP - 10/12/2022 5:09 PM EDT HISTORY AND PHYSICAL EXAMINATION SUBJECTIVE 42 year old female is here for consult to determine preoperative surgical clearance requested by [facility] for anticipated surgery: plantar [...] IUD 1 Each by INTRAUTERINE route as directed.1 Each 0 famotidine (PEPCID) 20 mg tablet [...] or problems Cardiovascular: no hx of CAD, OR, CHF, DVT/PE, arrhythmia, HTN. + hx of hyperlipidemia. GI: Positive for GERD : No history of UTI in past 6 weeks. No history of renal failure. Not currently on or requiring dialysis. No history of symptoms or problems. 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 : Denies Endocrine: No history of diabetes. Has not taken steroids within the past 30 days. No history of endocrinological symptoms or problems. Hematology: No history of bleeding or clotting disorder. Pt is not taking anti- coagulation or platelet medications. No history of hematological [...] with planned procedure. Will fax notes to [facility]. Thank you for allowing [...] as needed for worsening/no improvement. Katherine Lozano APRN.CLINICAL APPLICATION CONSULTANT documented in this encounterAcmc Healthcare System [facility]igh08-23-2023 Miscellaneous Notes* Telephone Encounter - Lauren Tay RN - 10/07/2022 1:55 PM EDT [facility] calling [...] 30 days and is about to for clearance.James requesting patient be updated of this and [...] today to discuss details to ensure her footprocedure will take place within 30 days of upcoming scheduled Pre-Op appt. Will send this message to Katherine Lozano CNP 's office for update. Lauren Tay RN * Telephone Encounter - Mary Andrew LPN - 10/07/2022 11:24 AM EDT Faxed back as requested. * Telephone Encounter - Clover Briones LPN - 10/06/2022 4:19 PM EDT Type of form: surgical clearance request Form received via fax When form is completed, Fax form to [phone] Form has been forwarded to Physician Desk: Dr. Yoan Briones LPN documented in this encounterAcmc Healthcare System Glen[facility]igh07-18-2023 Instructions* Patient Instructions* Klaudia Cobb APRN.CADY - 09/01/2022 11:47 AM EDT Management of Benign Breast Pain / Fibrocystic Changes Decrease or avoid intake of caffeine, including coffee, teas, sodas, and chocolate. Decrease or avoid nicotine. Wear a support or sports (not underwire) bra. Take dlqp-jss-glwkmmt ibuprofen (Advil/Motrin) or other NSAIDs, such as naproxen (Aleve). Take 3 grams (3000 mg.) of evening primrose oil (available nojs-cok-vwpgqzs) in divided doses for 2months. Take warm showers. Use warm compresses. Gold Grover Friction Defense for prevention of chafing documented in this encounterAcmc Healthcare System Glen[facility]igh07-18-2023 History of Present illness Narrative* Klaudia Cobb APRN.CADY - 09/01/2022 11:30 AM EDT Lena Chaparro presents today for IUD check. [...] as needed and at annual exam. Klaudia Cobb APRN.CNP Medical Decision Making: Problems: Moderate: 1+ chronic illnesses with change and New problem with uncertain prognosis Risk: Moderate: Drug management Medical Decision Making Level: 4 - Moderate documented in this encounterAcmc Healthcare System [facility]igh07-05-2023 Discharge summary Author Zachery Pickard [facility] August 19, 2022 3:55pm Note Date/Time August 19, 2022 3:55p [facility] [address] [place] [address] / REHABILITATION SERVICES DISCHARGE SUMMARY MR#: [id number] Acct: [id number] Name: LENA CHAPARRO Rep #: [id number] : 1980 42 From: Zachery Pickard DPT, OCS, CSCS Referring Dr.: RADHA Yuan Status: REG R Insurance: [employer] Discharge Summary D/C Summary: It has been my pleasure to treat LENA CHAPARRO referred by Dr. Bal Yuan,RADHA, with the diagnosis of DDD for a total of 5 visit(s). Discharge Date: 08/19/22 Please see the following information for a summary of their discharge status. Subjective Subjective: Back pain is gone for the most part. Sitting in certain chairs acan hurt right away. Hep not doing alot at home. Does ex when she is hurting and they help Overall Improvement % Improvement: 100 Objective Objective/Function/Assessment: Full back AROM without pain that day. walking islimited due to foot pain but not back. No time for back ex right now and will continue with current. Goals Patient Goals: Improve Mobility and Decrease Pain Goal 1:: Sleep without waking at night Goal Progress: Goal Met Goal 2:: Full lumbar AROM without evidence of pain Goal Progress: Goal Met Goal 3:: sit and stand symmetrically without back pain Goal Progress: Goal Met Goal 4:: I appropriate HEP to minimize future problems Goal Progress: Goal Met Goal 5:: Pain 1/10 at worst in LB Goal Progress: Goal Met Plan Plan: d/c D/C Information d/c sentence: If there are questions or concerns regarding this patient's physical therapy, please feel free to call me at [phone]. Thank you for the referral of thispatient. Sincerely, Zachery Pickard DPT, OCS, CSCS <Electronically signed by Zachery Pickard DPT, OCS, CSCS> 08/19/22 1557 CC: RADHA Yuan; Dr. Wilver Jones MD ~ EBG Signed [facility] Work Phone: [phone]) 328-217607-05-2023 Discharge summary Author Zachery Pickard [facility] August 19, 2022 3:51pm Note Date/Time August 19, 2022 3:51p m [facility] Physical [facility] [address] [place] [address] / REHABILITATION SERVICES DISCHARGE SUMMARY MR#: [id number] Acct: [id number] Name: LENA CHAPARRO Rep #: [id number] : 1980 42 From: Zachery Pickard DPT, RAMIN, CSCS Referring Dr.: RADHA Yuan Status: REG R Insurance: [facility] [employer] Discharge Summary D/C summary: It has been my pleasure to treat LENA CHAPARRO referred by Dr. Bal Yuan,RADHA, with the diagnosis of B PF itis for a total of 14 visit(s). Discharge Date: 08/19/22 Please see the following information for a summary of their discharge status. Subjective Subjective: To 08/26. Still hurting in feet R>L...right at 5/10 on the heel and left is 3/10. Pain is pretty constant worse in am and then sometimes later in day. Worse with sitting too much or being onfeet. Ready for surgery if thatis the next step, could not work right now. Had injections, tried night brace but hard to keep on, orthotics are in, can't take steroids, done home stretching and rolling out but did not help more than atad bit. Pain B foot pain: Pain Intensity (Out of 10): 4 PAINTING: Pain Intensity (Out of 10): 0 Overall Improvement % Improvement: 30 Objective Objective/Function: Good ROM and strength in B feet adn ankles, DF still about 0to 2 degrees AROM but others WNL. Tender B calcaneus R >L moderately. Walks in gingeerly but I. Overall not improving as expected with this and will f/u with doctor for next step. Please note the last note on 08/14 was misdocumented under her foot chart but wasmeant for her back diagnoses. Goals Goal 1:: Pt feel pain in feet is 75% better at 1/10 at worst Goal Progress: Not Progressing Goal 2:: I managemnt of condition Goal Progress: Not Progressing Goal 3:: Vaccuum and chores at home without increased pain Goal Progress: Not Progressing Goal 4:: LEFS score 55 Goal Progress: Not Progressing Goal 5:: Plan to return to work as able Goal Progress: Not Progressing Plan Plan: d/c, back to doctor. D/C Information Discharge Comments: Feet not improving and will seek more guidance counselor from doctor. d/c sentence: If there are questions or concerns regarding this patient's physical therapy, please feel free to call me at [phone]. Thank you for the referral of thispatient. Sincerely, Zachery Pickard, DPT, OCS, CSCS Balance/Gait/Functional tests Balance/Special Test Scores Oswestry Low Back Score: 6 Lower Extremity Functional Score: 31 <Electronically signed by Zachery Pickard DPNancy, OCS, CSCS> 08/19/22 1551 CC: RADHA Yuan; Dr. Wilver Jones MD ~ EBG Signed [facility] Work Phone: 1(474) 720-668606-30-2023 Discharge summary Author Zachery Pickard [facility] August 14, 2022 3:55pm Note Date/Time August 14, 2022 3:55 pm [facility] [address] [place] [address]. [address] [place] [address] / REHABILITATION SERVICES DISCHARGE SUMMARY MR#: [id number] Acct: [id number] Name: LENA CHAPARRO Rep #: [id number] : 1980 42 From: Zachery Pickard DPT, OCS, CSCS Referring DrArlette: RADHA Yuan Status: REG R Insurance: [facility] [employer] Discharge Summary D/C summary: It has been my pleasure to treat LENA CHAPARRO referred by Dr. Bal Yuan DPM, with the diagnosis of B PF itis for a total of 13 visit(s). Discharge Date: 08/14/22 Please see the following information for a summary of their discharge status. Subjective Subjective: Back pain is gone for the most part. Certain chairs can start hurting right away. HEP at home : not alot. Does ex when she is hurting. And they help(extensions). Activities are normal. Very busy lately. Walking at festival. Had graduationparty. Pain B foot pain: Pain Intensity (Out of 10): 5 PAINTING: Pain Intensity (Out of 10): 0 Overall Improvement % Improvement: 100 Objective Objective/Function: Full back ROM without pain today, walking is limited by footpain but not back. No time for more back exercise right now and will continue with current. Goals Goal 1:: Pt feel pain in feet is 75% better at 1/10 at worst Goal Progress: 100% Goal 2:: I managemnt of condition Goal Progress: Goal Met Goal 3:: Vaccuum and chores at home without increased pain Goal Progress: Goal Met Goal 4:: LEFS score 55 Goal Progress: Goal Met Goal 5:: Plan to return to work as able Goal Progress: feet hold back. Plan Plan: d/c D/C Information Discharge Comments: Back doing very well and moving great, will continue postural focus and ext ex at home and minimizing sitting. d/c sentence: If there are questions or concerns regarding this patient's physical therapy, please feel free to call me at [phone]. Thank you for the referral of thispatient. Sincerely, Zachery Pickard DPT, OCS, CSCS Balance/Gait/Functional tests Balance/Special Test Scores Oswestry Low Back Score: 6 Lower Extremity Functional Score: 53 <Electronically signed by Zachery Pickard DPT, OCS, CSCS> 08/14/22 5020 CC: RADHA Yuan; Dr. Wilver Jones MD ~ VANESSA Signed [facility] Work Phone: [phone]) 595-479706-12-2023 History of Present illness Narrative* Rachael Barnett RDMS - 07/27/2022 2:30 PM EDT Radiology Service Progress Note PATIENT NAME: Lena Chaparro DATE OF SERVICE: July 27, 2022 TIME: 3:11 PM PATIENT IDENTITY VERIFICATION COMPLETED USING TWO (2) IDENTIFIERS: Name and Date of confirmedby patient verbally. FALL SCREENING: Has the patient [...] 27, 2022 3:11 PM documented in this encounterAcmc Healthcare [facility]igh06-07-2023 NoteHNO ID: [id number] Author: RAJESH Pena Service: Nuclear Medicine Author [...] POST EXAM PIV STATUS: Discontinued PROCEDURE TYPE: NM Stress: 12.3 mCi Gv28i-Jvxitwc was administered IV for Rest Imaging at 12:53 by . 32.9 mCi Nj16t-Wyrttbl was administered IV for Stress Imaging at 13:36 by . PATIENT DISCHARGED TO: Ambulatory patient, left [place] department area. A Diagnostic radioactive procedure has taken place, with no further precautions necessary other than routine body substance precautions. More information regarding radiation safety can be found using this link: [email or web address]%[email or web address].[email or web address] SIGNATURE: RAJESH Pena PATIENT NAME: Lena Chaparro DATE: July 22, 2022 TIME: 1:16 PM [facility]CON[phone] History of Present illness Narrative* RAJESH Pena - 07/22/2022 12:45 PM EDT RADIOLOGY SERVICE PROGRESS NOTE SERVICE DATE: 07/22/2022 [...] creatinine assay has traceable calibration to isotope dilution- mass spectrometry. Refer to KDIGO guidelines for clinical interpretation. In patients with unstable renal function, e.g. those with acute kidney injury, the eGFRmay not accurately reflect actual GFR. eGFR- Date Value Ref Range Status 05/25/2018 >60 Final P.O.C.T. RESULTS: N/A July 22, [address] PERFORMED: No IV SITE: Ambulatory: A peripheral IV was started in the Right antecubital site with a Angio cath: 22 gauge. POST EXAM PIV STATUS: Discontinued PROCEDURE TYPE: NM Stress: 12.3 mCi Uz55t-Geskggw was administered IV for Rest Imaging at 12:53 by . 32.9 mCi Jw49r-Vgbnksd was administered IV for Stress Imaging at 13:36 by . PATIENT DISCHARGED TO: Ambulatory patient, left [place] department area. A Diagnostic radioactive procedure has taken place, with no further precautions necessary other than routine body substance precautions. More information regarding radiation safety can be found usingthis link: [email or web address]-% 20Diagnostic%20Nuclear%20Medicine%20Procedures.pdf SIGNATURE: RAJESH Pena PATIENT NAME: Lena Chaparro DATE: July 22, 2022 TIME: 1:16 PM PAGER/CONTACT #: documented in this encounterAcmc Healthcare [facility]igh06-06-2023 Miscellaneous Notes* Telephone Encounter - Huma Rainey RN - 07/21/2022 1:58 PM EDT Spoke with patient regarding reminder for stress test tomorrow and given instructions. documented in this encounterAcmc Healthcare [facility]06-02-2023 Miscellaneous Notes* Telephone Encounter - Kj Soriano RN - 07/17/2022 9:11 AM EDT Phoned patient and given provider's message with verbalized understanding. Given phone number to call and schedule. * Telephone Encounter - Wilver Jones MD - 07/16/2022 4:49 PM EDT Needs additional views. Orders placed. documented in this encounterAcmc Healthcare System [facility]igh05-31-2023 History of Present illness Narrative* Klaudia Cobb APRN.CLINICAL APPLICATION CONSULTANT - 07/15/2022 3:00 PM EDT Chief Psychology offered: Patient declines. Lena is a 42 year old who presents for an annual gynecologic exam with complaints, period problems . Menses: cycles every 28-30 days and 4-6 total days of flow. No change in HMB: Day 1-3 HMB - changessaturated super tampon every hour during daytime hours. 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 History Comments: Sexual Activity: Yes; Male; Essure [...] external genitalia normal, normal Bartholin's glands, urethra, Mescal's glands, no vulvar lesions, no cervical lesions, [...] one year or sooner as needed Klaudia Cobb APRN.CLINICAL APPLICATION CONSULTANT documented in this encounterAcmc Healthcare System [facility]igh05-31-2023 History of Present illness Narrative* Emili Majano RT(R) - 07/15/2022 2:40 PM EDT Radiology Service Progress Note PATIENT NAME: Lena Chaparro DATE OF SERVICE: July 15, 2022 TIME: 2:31 PM PATIENT IDENTITY VERIFICATION COMPLETED USING TWO (2) IDENTIFIERS: Name and Date of confirmedby patient verbally. FALL SCREENING: Has the patient [...] 15, 2022 2:31 PM documented in this encounterAcmc Healthcare [facility]igh05-12-2023 Miscellaneous Notes* Telephone Encounter - Katherine Lozano APRN.CNP - 06/26/2022 6:20 PM EDT Done * Telephone Encounter - James Isbell LPN - 06/26/2022 8:17 AM EDT Discuss at OV today. (Routed to provider to file pended order for lab.) James Isbell LPN * Telephone Encounter - Rachell Fajardo Ma - 06/25/2022 8:44 AM EDT Left message for patient to return call. Rachell Fajardo Ma * Telephone Encounter - Wilver Jones MD - 06/24/2022 5:07 PM EDT Calcium was better but vit d is very low. Rx sent. Recheck labs in six weeks. documented in this encounterAcmc Healthcare System [facility]igh05-12-2023 Instructions* Patient Instructions* Katherine Lozano APRN.CNP - 06/26/2022 1:23 PM EDT Schedule stress test. Start prednisone daily for 5 days. Gentle stretching. Moist heat/ice to the lower back. documented in this encounterAcmc Healthcare [facility]igh05-12-2023 History of Present illness Narrative* Katherine Lozano APRN.CNP - 06/26/2022 1:08 PM EDT This is a 42 year old female [...] and extension, good range of motion, no muscletenderness, reflexes are 2+ and symmetric, motor and [...] MG/5 ML INTRAVENOUS SYRINGE - INSERT IV ([place]) - IV DISCONTINUE 2. Acute bilateral low [...] improvement. Katherine Lozano APRN.CADY documented in this encounterAcmc Healthcare System [facility]igh05-08-2023 Miscellaneous Notes* Telephone Encounter - Daja Villa - 06/22/2022 11:58 AM EDT Patient informed Rx sent to pharmacy. Daja Villa * Telephone Encounter - Cheyenne Jacquie NUNEZ - 06/22/2022 11:28 AM EDT Patient calling said she thinks she has yeast rash under her breasts, red rash, itching. She has not been able to wear her bra past few days. Patient is asking for rx to be sent to [facility] pharmacy please. Please advise documented in this encounterAcmc Healthcare System Glenbeigh04-20-2023 Miscellaneous Notes* Telephone Encounter - Daja Villa - 06/04/2022 2:40 PM EDT Left detailed message for patient that new Rx was sent to pharmacy and to keep her follow up appointment. VM verified. Advised her to call back with any questions or concerns. Daja Villa * Telephone Encounter - Wilver Jones MD - 06/04/2022 2:09 PM EDT Resent over. Make sure follows up. * Telephone Encounter - Krissy Thomas RN - 06/04/2022 12:14 PM EDT Patient calls and states that duloxetine seemed to work great however it caused her to have a headache and nausea. Patient asking if provider can prescribe Pristiq again? Patient states that she did not have any issues with that. Please review and advise, Krissy Thomas RN documented in this encounterAcmc Healthcare System [facility]igh04-17-2023 Miscellaneous Notes* Telephone Encounter - Mary Andrew LPN - 06/01/2022 5:19 PM EDT Left detailed message as advised. * Telephone Encounter - Wilver Jones MD - 06/01/2022 4:54 PM EDT Her final labs were just resulted this afternoon. All are normal except. Her sugar is up. Her calcium is minimally up but is likely lab error. Cholesterol is up. Watch cholesterol in diet. Recheck sugar(a1c) and calcium labs in one week * Telephone Encounter - Cheyenne Dhillon MAYRA - 06/01/2022 2:20 PM EDT Patient calling asking for her lab results, [...] Abs Lymph 1.00 - 4.00 k/uL 3.29 [place]% % 3.6 Abs [place] <0.87 k/uL 0.34 Eosin% % 1.7 Abs [...] Factor <16 IU/mL <10 documented in this encounterAcmc Healthcare System Glen[facility]igh04-13-2023 History of Present illness Narrative* Wilver Jones MD - 05/28/2022 4:27 PM EDT Patient presents with: Plantar Fasciitis HPI: Patient [...] past medical history, surgical history, family history andsocial history today. REVIEW OF SYSTEMS All other reviewed and negative other than HPI. VITALS: BP 164/94 Pulse 100 Ht 162.6 cm (5' 4) Wt 77.1 kg (170 lb) LMP 08/02/2021 [...] patient. Advised them to call if any sideeffects or questions. - DULOXETINE 20 MG CAPSULE,DELAYED [...] <130/80 Wilver Jones MD documented in this encounterAcmc Healthcare System Glen[facility]igh04-04-2023 Miscellaneous Notes* Telephone Encounter - Sharon Weber LPN - 05/19/2022 9:42 AM EDT Patient notified and verbalized understanding of instructions given.Sharon Weber LPN * Telephone Encounter - Sharon Weber LPN - 05/19/2022 9:42 AM EDT ----- Message from Elodia Puente APRN.CLINICAL APPLICATION CONSULTANT sent at 05/18/2022 7:19 AM EDT ----- Urine culture did not show clear evidence of infection, however it appears sample may have been contaminated with skin bacteria during collection. She may continue to take antibiotic if it has been helpful. Recommend follow up with PCP to enusre hematuria has resolved. Elodia Puente CNP * Telephone Encounter - Yumiko Cullen MA - 05/18/2022 5:54 PM EDT VM left instructing patient to return call to receive results. Yumiko Cullen MA * Telephone Encounter - Yumiko Cullen MA - 05/18/2022 5:53 PM EDT ----- Message from Elodia Puente APRN.CLINICAL APPLICATION CONSULTANT sent at 05/18/2022 7:19 AM EDT ----- Urine culture did not show clear evidence of infection, however it appears sample may have been contaminated with skin bacteria during collection. She may continue to take antibiotic if it has been helpful. Recommend follow up with PCP to enusre hematuria has resolved. Elodia Puente CNP documented in this encounterAcmc Healthcare System [facility]igh04-01-2023 History of Present illness Narrative* Jennifer Hopkins, DORON.CLINICAL APPLICATION CONSULTANT - 05/16/2022 2:49 PM EDT This note was created using Celenoriter. Subjective Lena Chaparro is a 42 year old female. 42 year old female with PMH hyperlipidemia, GERD and bipolar presents for possible UTI. Acute onset a couple nights ago. +burning +frequency +itching Denies fever or chills Denies abdominal pain. Denies vaginal bleeding. Denies vaginal discharge. LMP-last day was 05/13/22 Denies sexual activity. The history is provided by the patient. No language tutor was used. UTI This is a new problem. The current episode started more than 2 days ago. The problem occurs every urination. The problem has been gradually worsening. The quality of the pain is described as burning.The pain is at a severity of 6/10. [...] tablet Take 1 tablet by mouth twice dailyfor 3 days. fluconazole (DIFLUCAN) 150 mg tablet [...] 698.1, ICD10: N89.8 Declines pelvic exam Jennifer Hopkins APRN.CLINICAL APPLICATION CONSULTANT documented in this encounterAcmc Healthcare System [facility]igh03-03-2023 Miscellaneous Notes* Telephone Encounter - Cheyenne Dhillon LPN - 04/17/2022 11:00 AM EST Patient calling asking to have Physical Therapy order faxed to [facility]. Printed order, face sheet, insurance card copy and faxed to [phone] as requested. documented in this [facility]02-21-2023 Instructions* Patient Instructions* Yarely Dawkins MD - 04/07/2022 2:33 PM [...] nostril once a day documented in this [facility]02-21-20[facility] Nurse Note* Miryam Mills RN - 04/07/2022 1:58 PM EST Patient c/o generalized itchiness for last year. She gets welts where she scratches. Taking zyrtec 10 mg once daily with good relief. Also c/o nasal drainage. Prescribed flonase d/t eustachian dysfunction/dizziness-she has not started. documented in this encounterAcmc Healthcare [facility]igh02-21-2023 History of Present illness Narrative* Yarely Dawkins MD - 04/07/2022 1:52 PM EST This is a consultation requested by Katherine Lozano APRN, CNP for an allergy and immunology evaluation. My final recommendations will be communicated back to the requesting healthcare provider(s) by way of shared medical record or via U.[place]. mail. 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 There are no clear [...] patient has no history of eczema. URTICARIA:See RAMPART GERD: patient has a history of GERD [...] of cervix 2002,2004 Abn. Pap smear (cervix) Bipolar disorder, unspecified [...] no. 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 Yarely Dawkins MD documented in this encounterAcmc Healthcare [facility]igh02-15-2023 History of Present illness Narrative* James Isbell CONSERVATION COORDINATOR - 04/01/2022 2:06 PM EST Ambulatory Ear Lavage Pre-treatment: No pre-treatment Treatment: [...] ear lavage. Pt reclined on exam table. 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 Post-treatment: Post Irrigation Post-treatment: Ear Canal/Tympanic membrane assessed by GIOVANNI Lozano CNP * Katherine Lozano APRN.CLINICAL APPLICATION CONSULTANT - 04/01/2022 1:25 PM EST This is a 42 year old female [...] scheduled or as needed for worsening/no improvement. CATHERINE Mckeon APRN.CADY The patient indicates understanding of these issues and agrees with the plan. documented in this encounterAcmc Healthcare [facility]02-15-2023 Instructions* Patient Instructions* Katherine Lozano APRN.CNP - 04/01/2022 1:36 PM EST Schedule w/ allergy. Start the flonase. Schedule with physical therapy. documented in this encounterAcmc Healthcare [facility]02-09-2023 History of Present illness Narrative* Valeria Noriega MA - 03/26/2022 8:35 AM EST POPULATION HEALTH NAVIGATION OUTREACH Action/ - [facility] Medicaid Project Last office visit: 02/04/22 (due for Wellness Exam) Diagnosis with HCC gap left: K21.9 - Gastroesophageal reflux disease - KATELYN Last Billed 02/04/2022 F31.9 - Bipolar disorder, unspecified (HCC) - PSYM Last Billed 02/04/2022 INFLUENZA(1) due on 10/16/2021 MAMMOGRAM Never done Voicemail message left and Mychart message sent offering to assist in scheduling Wellness Exam. Patient Identified by Name and : NO Outreach Outcome/Action Unable to reach patient: Left message MyChart message sent Did you use a PCP flex slot to schedule this appointment? N/A Reason for Outreach HCC or suspected condition Payer: Payor: [employer]ICA[employer] / Plan: [facility] / Product Type: Medicaid / Care [...] 26, 2022 8:35 AM documented in this encounterAcmc Healthcare [facility]igh12-21-2022 History of Present illness Narrative* Wilver Jones MD - 02/04/2022 9:24 AM EST Patient presents with: Follow Up HPI: Patient [...] past medical history, surgical history, family history andsocial history today. REVIEW OF SYSTEMS All other reviewed and negative other than HPI. VITALS: BP 110/70 Pulse 78 Ht 162.6 cm (5' 4) Wt 76.2 kg (168 lb) LMP 08/02/2021 [...] and symmetric. Sensation grossly intact., negative mane hallpiketoday. ASSESSMENT/PLAN: 1. Vertigo - ICD9: 780.4, ICD10: R42 (primary diagnosis) -can return to work without restrictions. Stop hctz since not using regularly. 2. Gastroesophageal reflux disease, unspecified whether esophagitis present - ICD9: 530.81, ICD10: K21.9 3. Bipolar affective disorder, remission status unspecified (HCC) - ICD9: 296.80, ICD10: F31.9 Wilver Jones MD documented in this encounterAcmc Healthcare System [facility]igh12-15-2022 Miscellaneous Notes* Telephone Encounter - Rachell Fajardo Ma - 01/29/2022 2:28 PM EST Pt notified through [employer] * Telephone Encounter - Kj Edwards PA-C - 01/29/2022 1:23 PM EST Note written off through Wednesday. Will need to follow up with Dr. Jones next week while off as I am out. Thanks, Jacob Edwards PA-C * Telephone Encounter - Praveena Oleary Ma - 01/29/2022 8:06 AM EST See update from pt. Praveena Oleary Ma documented in this encounterAcmc Healthcare [facility]igh12-15-2022 Miscellaneous Notes* Telephone Encounter - Rachell Fajardo Ma - 01/29/2022 11:33 AM EST Given to patient at appt * Telephone Encounter - Wilver Jones MD - 01/20/2022 5:31 PM EST done * Telephone Encounter - Rachell Fajardo Ma - 01/20/2022 8:14 AM EST Put on leave 01/13/22 until 01/23/22 Not currently working. Appt on 01/23/22. Having difficulty tilting head back, gets dizzy. Has to do this a lot at work, even on light duty. * Telephone Encounter - Wilver Jones MD - 01/19/2022 6:01 PM EST We did not really discuss work when here. What days has she missed. Is she not working right now? * Telephone Encounter - Geni Edwards - 01/19/2022 2:59 PM EST Pt called asking about form. She says she needs them signed before for work. Please reviewand advise. Geni Edwards January 19, 2022 3:00 PM * Telephone Encounter - Mary Andrew LPN - 01/16/2022 12:46 PM EST Patient has been identified by name and date of : Yes Type of form: Accommodation Medical Certification Form received via: Walk in When form is completed, contact patient. Form has been forwarded to: Provider's desk. Provider name: Yoan Andrew LPN documented in this encounterAcmc Healthcare [facility]12-14-2022 History of Present illness Narrative* Jennifer Jacqueline, PT - 01/28/2022 11:23 AM EST Episode Visit Count: 1 Therapist That Will [...] Planned: 6 Planned Treatment Interventions: Therapeutic exercise (19910);Neuromuscular re- education (79055);Manual therapy (21867);Therapeutic activities (78359);Self- fdc management (39308);Patient/Family/Caregiver Education PLAN FOR NEXT VISIT: Begin seated [...] called EMS and she was transported to [facility]. EKG and D/C summary in scanned docs. F/u with Dr. 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 Intake Information: Prescription present [...] History of Migraine: Yes (with menses) Denies: tremors;paresthesia;headaches;neurological complaints;focal weakness;neuropathy Reports: headaches;dizziness Pain: Post Treatment [...] Head Shake: Left beat Positional Testing Right Roundup-Hallpike: Asymptomatic;No nystagmus Left Roundup-Hallpike: No nystagmus;Asymptomatic Right Ear Down: Asymptomatic;No nystagmus [...] Gait Observation: unremarkable Education: Education Learning Preferences: Demonstration;Explanation;Performance;Printed Materials Barriers: Acuity of Illness Learning/educational needs: Safety;Home exercise program;Plan of Care Education Provided: Yes, see treatment interventions for education provided Education Provided To: Patient Education Mode/Type: Demonstration;Explanation/Discussion;Literature/Printed Materials;Performance Response to Education/Teach Back: States/Identifies;Return Demonstration TREATMENT: PT Treatment Interventions: Neuromuscular Re-Education;Self-Intermediate Management Evaluation Neuromuscular Re-Education: 1: VORx1 seated, plain back ground holding 2 cm target arm extended within 30 degrees of midline horrizontal head movement 30 sec 2x (increased symptoms after stopping, able to complete with adequatespeed, no corrective saccades observed) 2: VORx1 seated, [...] and tactile cueing. Patient education as noted. Self-Intermediate Management: 1: *vestibular neuritis hand out 2: [...] 47 Jennifer Phillips PT documented in this encounterA[facility] Instructions* Patient Instructions* Kj Edwards PA-C - 01/23/2022 12:36 PM EST Valium is a benzodiazepine medication which can help with vertigo. documented in this encounterA[facility]12-09-2022 History of Present illness Narrative* Kj Edwards PA-C - 01/23/2022 11:20 AM EST 41 year old female with c/o 2 [...] Carpal tunnel release PAST SURGICAL HISTORY OF 2001 RIGHT BREAST BIOPSY PAST SURGICAL HISTORY OF 2001 EXCISION OF RIGHT SHOULDER LESION RPR 1ST [...] TABLET Kj Edwards PA-C documented in this encounterAcm[facility]11-25-2022 History of Present illness Narrative* Wilver Jones MD - 01/09/2022 3:53 PM EST Patient presents with: Hospital F/U HPI: Patient [...] called EMS and she was transported to [facility]. EKG and D/C summary in scanned [...] status changes. No focal numbness or weakness. [place] shaky on Wednesday. Orthostatics were negative. She [...] past medical history, surgical history, family history andsocial history today. REVIEW OF SYSTEMS All other reviewed and negative other than HPI. VITALS: BP 118/68 Pulse 89 Ht 162.6 cm (5' 4) Wt 77.8 kg (171 lb 9.6 oz) [...] THERAPY Wilver Jones MD documented in this encounterAcm[facility]08-15-2022 Instructions* Patient Instructions* Katherine Lozano APRN.CADY - 09/29/2021 2:29 PM EDT Start the zyrtec -- twice daily X 1 week; then decrease to once daily. Keep me updated. documented in this encounterAcmc [facility]08-15-2022 History of Present illness Narrative* Katherine Lozano APRN.CADY - 09/29/2021 2:10 PM EDT This is a 41 year old female [...] suspicious rashes or lesions. Used fingernail to writea word on her back, and on recheck, [...] as needed for worsening/no improvement. Katherine Lozano APRN.CLINICAL APPLICATION CONSULTANT The patient indicates understanding of these issues and agrees with the plan. This note was partially generated using Jinn voice recognition system. Note was reviewed for accuracy. There may be minor misspellings or grammar miscues with [place] voice recognition. documented in this encounterAcmc [facility]07-13-2022 Miscellaneous Notes* Telephone Encounter - Mary Andrew LPN - 08/27/2021 11:56 AM EDT Patient notified. * Telephone Encounter - Wilver Jones MD - 08/27/2021 11:27 AM EDT rx sent * Telephone Encounter - Collette Pelayo - 08/27/2021 10:35 AM EDT Patient is requesting a prescription for a yeast infection. Please send this to [facility] in [place]. When this has been sent or any questions please contact patient at [phone]. Collette Pelayo documented in this encounterAcmc [facility]07-06-2022 Instructions* Patient Instructions* Katherine Lozano APRN.CNP - 08/20/2021 11:04 AM EDT 1. Start the buspar. Just start the one tablet up to three times daily as needed. If tolerating okay, it is okay to go up to 2 tablets up to three times daily as needed. 2. Recheck in 1 month. documented in this encounterAcmc [facility]07-06-2022 History of Present illness Narrative* Katherine Lozano APRN.CNP - 08/20/2021 10:48 AM EDT This is a 41 year old female [...] APRN.CADY This note was partially generated using Jinn voice recognition system. Note was reviewed for accuracy. There may be minor misspellings or grammar miscues with Jinn voice recognition. documented in this encounterAcmc [facility]04-01-2022 Miscellaneous Notes* Telephone Encounter - Zara Pendleton MA - 05/16/2021 8:08 AM EDT Please see patients MyChart message Thank you Zara Pendleton MA documented in this encounterAcmc [facility]09-25-2008 History of Past illness Narrative* Problem Noted Date Resolved Date Bipolar disorder, unspecified 11/10/2007 Overview: With PTSD. Seeing counselor Last Assessment & Plan: Assessment: in remission, stable per pt, no rx Supervision of other high-risk (V23.89) 09/03/2007 10/26/2007 Abdominal pain, right upper quadrant 09/03/2007 10/26/2007 Abnormal findings on screening 008 10/26/2007 documented as of this encounter (statuses as of 05/29/2022) [facility] History of Past illness Narrative* Problem Noted Date Resolved Date Bipolar disorder, unspecified 11/10/2007 Overview: With PTSD. Seeing counselor Last Assessment & Plan: Assessment: in remission, stable per pt, no rx Supervision of other high-risk (V23.89) 09/03/2007 10/26/2007 Abdominal pain, right upper quadrant 09/03/2007 10/26/2007 Abnormal findings on screening 008 10/26/2007 documented as of this encounter (statuses as of 06/02/2022) [facility] History of Past illness Narrative* Problem Noted Date Resolved Date Bipolar disorder, unspecified 11/10/2007 Overview: With PTSD. Seeing counselor Last Assessment & Plan: Assessment: in remission, stable per pt, no rx Supervision of other high-risk (V23.89) 09/03/2007 10/26/2007 Abdominal pain, right upper quadrant 09/03/2007 10/26/2007 Abnormal findings on screening 008 10/26/2007 documented as of this encounter (statuses as of 06/05/2022) [facility] History of Past illness Narrative* Problem Noted Date Resolved Date Bipolar disorder, unspecified 11/10/2007 Overview: With PTSD. Seeing counselor Last Assessment & Plan: Assessment: in remission, stable per pt, no rx Supervision of other high-risk (V23.89) 09/03/2007 10/26/2007 Abdominal pain, right upper quadrant 09/03/2007 10/26/2007 Abnormal findings on screening 008 10/26/2007 documented as of this encounter (statuses as of 06/22/2022) [facility] History of Past illness Narrative* Problem Noted Date Resolved Date Bipolar disorder, unspecified 11/10/2007 Overview: With PTSD. Seeing counselor Last Assessment & Plan: Assessment: in remission, stable per pt, no rx Supervision of other high-risk (V23.89) 09/03/2007 10/26/2007 Abdominal pain, right upper quadrant 09/03/2007 10/26/2007 Abnormal findings on screening 008 10/26/2007 documented as of this encounter (statuses as of 06/27/2022) [facility] History of Past illness Narrative* Problem Noted Date Resolved Date Bipolar disorder, unspecified 11/10/2007 Overview: With PTSD. Seeing counselor Last Assessment & Plan: Assessment: in remission, stable per pt, no rx Supervision of other high-risk (V23.89) 09/03/2007 10/26/2007 Abdominal pain, right upper quadrant 09/03/2007 10/26/2007 Abnormal findings on screening 2 008 10/26/2007 documented as of this encounter (statuses as of 06/27/2022) [facility] History of Past illness Narrative* Problem Noted Date Resolved Date Bipolar disorder, unspecified 11/10/2007 Overview: With PTSD. Seeing counselor Last Assessment & Plan: Assessment: in remission, stable per pt, no rx Supervision of other high-risk (V23.89) 09/03/2007 10/26/2007 Abdominal pain, right upper quadrant 09/03/2007 10/26/2007 Abnormal findings on screening 2 008 10/26/2007 documented as of this encounter (statuses as of 07/16/2022) [facility] History of Past illness Narrative* Problem Noted Date Resolved Date Bipolar disorder, unspecified 11/10/2007 Overview: With PTSD. Seeing counselor Last Assessment & Plan: Assessment: in remission, stable per pt, no rx Supervision of other high-risk (V23.89) 09/03/2007 10/26/2007 Abdominal pain, right upper quadrant 09/03/2007 10/26/2007 Abnormal findings on screening 008 10/26/2007 documented as of this encounter (statuses as of 07/17/2022) [facility] History of Past illness Narrative* Problem Noted Date Resolved Date Bipolar disorder, unspecified 11/10/2007 Overview: With PTSD. Seeing counselor Last Assessment & Plan: Assessment: in remission, stable per pt, no rx Supervision of other high-risk (V23.89) 09/03/2007 10/26/2007 Abdominal pain, right upper quadrant 09/03/2007 10/26/2007 Abnormal findings on screening 008 10/26/2007 documented as of this encounter (statuses as of 07/21/2022) [facility] History of Past illness Narrative* Problem Noted Date Resolved Date Bipolar disorder, unspecified 11/10/2007 Overview: With PTSD. Seeing counselor Last Assessment & Plan: Assessment: in remission, stable per pt, no rx Supervision of other high-risk (V23.89) 09/03/2007 10/26/2007 Abdominal pain, right upper quadrant 09/03/2007 10/26/2007 Abnormal findings on screening 008 10/26/2007 documented as of this encounter (statuses as of 07/23/2022) [facility] of Past illness Narrative* Problem Noted Date Resolved Date Bipolar disorder, unspecified 11/10/2007 Overview: With PTSD. Seeing counselor Last Assessment & Plan: Assessment: in remission, stable per pt, no rx Supervision of other high-risk (V23.89) 09/03/2007 10/26/2007 Abdominal pain, right upper quadrant 09/03/2007 10/26/2007 Abnormal findings on screening 008 10/26/2007 documented as of this encounter (statuses as of 07/23/2022) [facility] of Past illness Narrative* Problem Noted [...] of this encounter (statuses as of 09/02/2022) [facility] of Past illness Narrative* Problem Noted [...] of this encounter (statuses as of 10/07/2022) [facility] of Past illness Narrative* Problem Noted [...] of this encounter (statuses as of 10/13/2022) [facility] of Past illness Narrative* Problem Noted [...] of this encounter (statuses as of 10/14/2022) [facility] of Past illness Narrative* Problem Noted [...] of this encounter (statuses as of 10/14/2022) [facility] of [facility] Narrative* Problem Noted [...] of this encounter (statuses as of 11/04/2022) [facility] of [facility] Narrative* Problem Noted [...] of this encounter (statuses as of 12/11/2022) [facility] Narrative* Problem Noted [...] of this encounter (statuses as of 12/20/2022) [facility] Narrative* Problem Noted [...] of this encounter (statuses as of 12/20/2022) [facility] of [facility] Narrative* Problem Noted [...] of this encounter (statuses as of 12/20/2022) [facility] of Past [facility] Narrative* Problem Noted [...] of this encounter (statuses as of 12/26/2022) [facility] of Past illness Narrative* Problem Noted [...] of this encounter (statuses as of 01/13/2023) [facility] of [facility] Narrative* Problem Noted [...] of this encounter (statuses as of 01/14/2023) [facility] Narrative* Problem Noted [...] of this encounter (statuses as of 03/24/2023) [facility] Narrative* Problem Noted [...] of this encounter (statuses as of 03/24/2023) [facility] Narrative* Problem Noted [...] of this encounter (statuses as of 03/25/2023) [facility] of [facility] Narrative* Problem Noted [...] of this encounter (statuses as of 03/26/2023) [facility] Narrative* Problem Noted [...] of this encounter (statuses as of 03/29/2023) [facility] of [facility] Narrative* Problem Noted [...] of this encounter (statuses as of 04/08/2023) [facility] of [facility] Narrative* Problem Noted Date Diagnosed Date Resolved Date Bipolar disorder, unspecified 11/10/2007 05/28/2022 Overview: With PTSD. Seeing counselor Last Assessment & Plan: Assessment: in remission, stable per pt, no rx Supervision of other high-ri sk (V23.89) 09/03/2007 10/26/2007 Abdominal pain, right upper quadrant 09/03/2007 10/26/2007 Abnormal findings on screening 06/06/2007 10/26/2007 documented as of this encounter (statuses as of 05/07/2023) [facility] of Past illness Narrative* Problem Noted Date Diagnosed Date Resolved Date Bipolar disorder, unspecified 11/10/2007 05/28/2022 Overview: With PTSD. Seeing counselor Last Assessment & Plan: Assessment: in remission, stable per pt, no rx Supervision of other high-ri sk (V23.89) 09/03/2007 10/26/2007 Abdominal pain, right upper quadrant 09/03/2007 10/26/2007 Abnormal findings on screening 06/06/2007 10/26/2007 documented as of this encounter (statuses as of 05/19/2023) [facility] of Past illness Narrative* Problem Noted Date Diagnosed Date Resolved Date Bipolar disorder, unspecified 11/10/2007 05/28/2022 Overview: With PTSD. Seeing counselor Last Assessment & Plan: Assessment: in remission, stable per pt, no rx Supervision of other high-ri sk (V23.89) 09/03/2007 10/26/2007 Abdominal pain, right upper quadrant 09/03/2007 10/26/2007 Abnormal findings on screening 06/06/2007 10/26/2007 documented as of this encounter (statuses as of 05/28/2023) [address]19-2008 History of Past illness Narrative* Problem Noted Date Resolved Date Supervision of other high-risk (V23.89) 09/03/2007 10/26/2007 Abdominal pain, right upper quadrant 09/03/2007 10/26/2007 Abnormal findings on screening 008 10/26/2007 documented as of this encounter (statuses as of 07/22/2021) [address]19-2008 History of Past illness Narrative* Problem Noted Date Resolved Date Supervision of other high-risk (V23.89) 09/03/2007 10/26/2007 Abdominal pain, right upper quadrant 09/03/2007 10/26/2007 Abnormal findings on screening 2 008 10/26/2007 documented as of this encounter (statuses as of 08/20/2021) [address]19-2008 History of Past illness Narrative* Problem Noted Date Resolved Date Supervision of other high-risk (V23.89) 09/03/2007 10/26/2007 Abdominal pain, right upper quadrant 09/03/2007 10/26/2007 Abnormal findings on screening 2 008 10/26/2007 documented as of this encounter (statuses as of 08/27/2021) [facility] of [facility] Narrative* Problem Noted Date Resolved Date Supervision of other high-risk (V23.89) 09/03/2007 10/26/2007 Abdominal pain, right upper quadrant 09/03/2007 10/26/2007 Abnormal findings on screening 212 008 10/26/2007 documented as of this encounter (statuses as of 09/29/2021) [address]19-2008 History of Past illness Narrative* Problem Noted Date Resolved Date Supervision of other high-risk (V23.89) 09/03/2007 10/26/2007 Abdominal pain, right upper quadrant 09/03/2007 10/26/2007 Abnormal findings on screening 2 008 10/26/2007 documented as of this encounter (statuses as of 01/09/2022) [address]19-2008 History of Past illness Narrative* Problem Noted Date Resolved Date Supervision of other high-risk (V23.89) 09/03/2007 10/26/2007 Abdominal pain, right upper quadrant 09/03/2007 10/26/2007 Abnormal findings on screening 2 008 10/26/2007 documented as of this encounter (statuses as of 01/23/2022) [address]19-2008 History of Past illness Narrative* Problem Noted Date Resolved Date Supervision of other high-risk (V23.89) 09/03/2007 10/26/2007 Abdominal pain, right upper quadrant 09/03/2007 10/26/2007 Abnormal findings on screening 2 008 10/26/2007 documented as of this encounter (statuses as of 01/28/2022) [facility] of Past [facility] Narrative* Problem Noted Date Resolved Date Supervision of other high-risk (V23.89) 09/03/2007 10/26/2007 Abdominal pain, right upper quadrant 09/03/2007 10/26/2007 Abnormal findings on screening 2 008 10/26/2007 documented as of this encounter (statuses as of 01/29/2022) [facility] of Past illness Narrative* Problem Noted Date Resolved Date Supervision of other high-risk (V23.89) 09/03/2007 10/26/2007 Abdominal pain, right upper quadrant 09/03/2007 10/26/2007 Abnormal findings on screening 2 008 10/26/2007 documented as of this encounter (statuses as of 02/04/2022) [address]19-2008 History of Past illness Narrative* Problem Noted Date Resolved Date Supervision of other high-risk (V23.89) 09/03/2007 10/26/2007 Abdominal pain, right upper quadrant 09/03/2007 10/26/2007 Abnormal findings on screening 2 008 10/26/2007 documented as of this encounter (statuses as of 03/26/2022) [address]19-2008 History of Past illness Narrative* Problem Noted Date Resolved Date Supervision of other high-risk (V23.89) 09/03/2007 10/26/2007 Abdominal pain, right upper quadrant 09/03/2007 10/26/2007 Abnormal findings on screening 008 10/26/2007 documented as of this encounter (statuses as of 03/29/2022) [facility] of Past illness Narrative* Problem Noted Date Resolved Date Supervision of other high-risk (V23.89) 09/03/2007 10/26/2007 Abdominal pain, right upper quadrant 09/03/2007 10/26/2007 Abnormal findings on screening 008 10/26/2007 documented as of this encounter (statuses as of 04/03/2022) [address]19-2008 History of Past illness Narrative* Problem Noted Date Resolved Date Supervision of other high-risk (V23.89) 09/03/2007 10/26/2007 Abdominal pain, right upper quadrant 09/03/2007 10/26/2007 Abnormal findings on screening 2 008 10/26/2007 documented as of this encounter (statuses as of 04/06/2022) [facility] of Past [facility] Narrative* Problem Noted Date Resolved Date Supervision of other high-risk (V23.89) 09/03/2007 10/26/2007 Abdominal pain, right upper quadrant 09/03/2007 10/26/2007 Abnormal findings on screening 2 008 10/26/2007 documented as of this encounter (statuses as of 04/09/2022) [address]19-2008 History of Past illness Narrative* Problem Noted Date Resolved Date Supervision of other high-risk (V23.89) 09/03/2007 10/26/2007 Abdominal pain, right upper quadrant 09/03/2007 10/26/2007 Abnormal findings on screening 2 008 10/26/2007 documented as of this encounter (statuses as of 04/17/2022) [address]19-2008 History of Past illness Narrative* Problem Noted Date Resolved Date Supervision of other high-risk (V23.89) 09/03/2007 10/26/2007 Abdominal pain, right upper quadrant 09/03/2007 10/26/2007 Abnormal findings on screening 008 10/26/2007 documented as of this encounter (statuses as of 05/16/2022) [facility] of Past illness Narrative* Problem Noted Date Resolved Date Supervision of other high-risk (V23.89) 09/03/2007 10/26/2007 Abdominal pain, right upper quadrant 09/03/2007 10/26/2007 Abnormal findings on screening 008 10/26/2007 documented as of this encounter (statuses as of 05/19/2022) [facility] Author Fabrizio Vanegas [facility] June 13, 2022 7:56am Note Date/Time June 13, 2022 7:4 6am [facility] Medical Records Department [address] [place] [id number] Emergency Department Summary 06/13/22 MR#: [id number] Acct: [id number] Name: LENA CHAPARRO Rep #:[id number] : 1980 42 From: Fabrizio Vanegas DO PCP: Dr. Wilver Jones MD Status:REG E R Location: ED HPI History of Present Illness Chief Complaint: Other, Pain/Inj Narrative Narrative: Patient is a 42-year-old female with past medical history of gastritis seasonal allergies and depression. She states that she woke to use the bathroom this morning and after doing so had a sudden onset of nausea followed by some pain running down her left arm. She states there is no associated diaphoresis shortness of breath or vomiting. She states that the pain was more sharp in nature. She states it lasted for about 15 minutes and then resolve. She reports that she is unsure if this was cardiac or a pinched nerve or even a panic attack and secondary to this comes in for evaluation [facility] Medical History (Updated 06/13/22 @ 07:[address] Fabrizio Vanegas DO) Encounter for screening for COVID-19 URI (upper respiratory infection) Vertigo Home Medications cetirizine 10 mg tablet 10 mg PO DAILY 06/13/22 [History Last Taken Unknown] desvenlafaxine succinate 50 mg tablet,extended release 24 hr 50 mg PO DAILY 06/13/22 [History Last Taken Unknown] famotidine 10 mg tablet (Pepcid AC) 10 mg PO DAILY 06/13/22 [History Last Taken Unknown] Allergy/AdvReac Type Severity Reaction Status Date / Time tioconazole [From Vagistat-1] Allergy Other Verified 06/13/22 06:22 Family History Other Angina at rest Bipolar 1 disorder Depression Heart disease Social History Smoking Status: Current every day smoker tobacco type: cigarettes ROS ROS ED Constitutional Constitutional ED: Denies chills or fever(s) ENT ENT ED: Denies sore throat Cardiovascular Cardiovascular: Denies chest pain Respiratory/Chest Respiratory/Chest: Denies cough or dyspnea Gastrointestinal Gastrointestinal: Reports nausea; Denies abdominal pain, diarrhea or vomiting Genitourinary Genitourinary ED: Denies dysuria Musculoskeletal Musculoskeletal: Reports back pain and other Details: Positive left arm pain Integumentary Denies rash Neurologic Neurologic: Denies headache(s) or paresthesias Psychiatric Psychiatric: Reports depression Hematologic/Lymphatic Hematologic/Lymphatic: Denies easy bleeding or easy bruising EXAM Physical Exam Const Vital Signs: 06/13/22 06:19 06/13/22 06:24 Temperature 97.0 F L Temperature Source Temporal Pulse Rate 90 Respiratory Rate 18 Respiratory Effort Non-Labored Respiratory Pattern Normal Blood Pressure 120/95 H Blood Pressure Mean 103 Pulse Ox 98 Oxygen Delivery Method Room Air Positive well nourished and well developed General Appearance ED: well developed HEENT Reports moist mucous membranes Eyes PERRL and EOMs intact bilaterally Neck supple Neck Narrative: No bony deformity or step-off of the cervical spine no midline pain with palpation. Negative Spurling sign bilaterally Chest Wall palpation of chest normal Resp normal respiratory effort and clear to auscultation bilaterally Cardio regular rate and regular rhythm Rate: other Other Details: Radial pulses are plus 2 out of 4 bilaterally are equal and symmetric GI normal to inspection, nondistended, normoactive bowel sounds, non-tender, non-distended and no masses GI Narrative: No voluntary guarding or rigidity no pulsatile mass Auscultation: normoactive bowel sounds Palpation: soft Back/Spine Back/Spine Narrative: There is mild pain with palpation along the left scapula Extremity normal to inspection Extremity Narrative: Bilateral upper and lower extremities are neurovascularly intact AIN/PIN are intact and normal for bilateral upper extremities No asymmetric edema no pitting edema negative Homans' sign bilaterally Neuro oriented x3 and CN's II-XII intact bilaterally Sensorium / Orientation: alert Psych mental status grossly normal Skin no rashes or lesions noted MDM MDM MDM Narrative Medical decision making narrative: Patient presented to the ER with spontaneous resolution of her symptoms. She islow risk for cardiovascular event. Differential includes cervical radiculopathysuperficial pinched nerve acute coronary syndrome lung pathology such as pneumonia pneumothorax or tumor and secondary to this a basic work-up was obtained. Labs showed normal troponin at 3 with no signs of acute kidney injuryor blood loss anemia. EKG is sinus rhythm. Chest x-ray reveals no acute lung pathology. On reevaluation patient states that her pain is still been resolved and as work-up is negative and she is low risk for cardiovascular event is otherwise safe for discharge History & Record Review Discussion w/independent historian: Patient Lab Data Attestation: I reviewed the patient's lab results. Labs: Laboratory Results - last 24 hr 06/13/22 06/13/22 07:00 07:00 WBC 9.0 RBC 4.79 Hgb 14.4 Hct 43.6 MCV 91.0 MCH 30.1 MCHC 33.0 RDW Std Deviation 43.8 RDW Coeff of Lili 13.0 Plt Count 415 MPV 9.9 Immature Gran % (Auto) 0.200 Neut % (Auto) 50.6 Lymph % (Auto) 40.2 [place] % (Auto) 6.2 Eos % (Auto) 2.5 Baso % (Auto) 0.3 Absolute Neuts (auto) 4.5 Absolute Lymphs (auto) 3.61 Nucleated RBC % 0 Sodium 140 Potassium 3.7 Chloride 110 H Carbon Dioxide 23.0 Anion Gap 7 BUN 20 H Creatinine 0.62 Estim Creat Clear Calc 104.16 Est GFR (MDRD) Af Amer 136 Est GFR (MDRD) Non-Af 112 BUN/Creatinine Ratio 32.1 H Glucose 106 Calcium 9.1 Magnesium 2.3 Troponin I High Sens 3 Radiography Diagnostic Testin view chest x-ray as interpreted by the emergency medicine physician reveals noacute infiltrate pneumothorax or pleural effusion Discharge Plan Triage Chief Complaint: Other, Pain/Inj ED Provider: Fabrizio Vanegas Dx/Rx/DC Orders Clinical Impression: Acute nonspecific chest pain with low risk of coronary artery disease, History of depression Instructions: ED Chest Pain, Uncertain Cause Prescriptions: No Action cetirizine 10 mg tablet 10 mg PO DAILY Label Comments: TAKE 1 TABLET BY MOUTH DAILY desvenlafaxine succinate 50 mg tablet extended release 24 hr 50 mg PO DAILY Label Comments: TAKE 1 TABLET BY MOUTH ONCE DAILY famotidine [Pepcid AC] 10 mg Tablet 10 mg PO DAILY Primary Care Provider: Wilver Jones Referrals: Wilver Jones MD [Primary Care Provider] - Activity Restrictions/Additional Instructions: Your work-up today shows no sign of acute cardiac event or lung pathology. Follow-up with your family doctor for repeat evaluation and return to the ER should you have any further concerns Disposition Disposition: Home, Self Care What to do if you have Problems For any increased pain, shortness of breath, bleeding, nausea or vomiting, chestpain, or any unexpected problems, contact your Primary Care Provider. Call [facility] ([phone]) or report to the closest Emergency Room. Call 911 if necessary. 06/13/22 0756 <Electronically signed by Fabrizio Vanegas DO> Cosigner Signature (if applicable): CC: Dr. Wilver Jones MD ~ Signed [facility] Work Phone: Evaluation note* Diagnosis ENRIKE (generalized anxiety disorder)- Primary Generalized anxiety disorder documented in this encounter [facility] note* Diagnosis Dermatographic urticaria- Primary documented in this encounter [facility] noteNo assessment information availableWMercy [facility] Work Phone: Evaluation note* Diagnosis Onset Date Resolution Status Vertigo acute [facility] Work Phone: [facility] note* Diagnosis Vertigo- Primary Dizziness and giddiness documented in this encounter [facility] note* Diagnosis Chronic vertigo- Primary Tinnitus of right ear Unspecified tinnitus documented in this encounter [facility] note* Diagnosis Vertigo- Primary Dizziness and giddiness [facility] Diagnosis Vertigo- Primary Dizziness and giddiness Gastroesophageal reflux disease, unspecified whether esophagitis present Bipolar affective disorder, remission status unspecified (HCC) [facility] Diagnosis Encounter for screening mammogram for malignant neoplasm of breast- Primary Other screening mammogram [facility] Diagnosis Eustachian tube disorder, left- Primary Dermatographic urticaria Itching Unspecified pruritic disorder Dizziness Dizziness and giddiness Bilateral impacted cerumen Impacted cerumen [facility] Diagnosis Encounter for screening mammogram for breast cancer [facility] Diagnosis Pruritic disorder- Primary Unspecified pruritic disorder Dermatographic urticaria Chronic rhinitis Postnasal drip [facility]* Diagnosis Dysuria- Primary Itching in the vaginal area Pruritus of genital organs [facility]* Diagnosis Anxiety with depression- Primary Mixed hyperlipidemia Vertigo Dizziness and giddiness Myalgias Plantar fasciitis Plantar fascial fibromatosis Elevated blood pressure reading without diagnosis of hypertension [facility]* Diagnosis Hyperglycemia- Primary Other abnormal glucose Hypercalcemia [facility]* Diagnosis Candidiasis- Primary Candidiasis of unspecified site [facility]* Diagnosis Other chest pain- Primary Acute bilateral low back pain without sciatica ENRIKE (generalized anxiety disorder) Generalized anxiety disorder [facility] Diagnosis Vitamin D deficiency- Primary Unspecified vitamin D deficiency [facility] Diagnosis Encounter for gynecological examination with [...] of status migrainosus [facility]* Diagnosis Abnormal mammogram- Primary Abnormal mammogram, unspecified [facility] Diagnosis Surveillance of previously prescribed intrauterine contraceptive device- Primary Intertrigo Other specified erythematous condition Breast tenderness in female Mastodynia [facility]* Diagnosis Preop examination- Primary Preoperative examination, unspecified Plantar fasciitis Plantar fascial fibromatosis [facility] Diagnosis Abnormal mammogram- Primary Abnormal mammogram, unspecified documented in this encounter [facility]* Diagnosis Onset Date Resolution Status Plantar fascial fibromatosis acute [facility] Diagnosis GERD without esophagitis- Primary Esophageal reflux documented in this encounter [facility] note* Diagnosis Dermatographic urticaria Itching Unspecified pruritic disorder documented in this encounter [facility] note* Diagnosis Encounter for screening mammogram for malignant neoplasm of breast Other screening mammogram documented in this encounter [facility]* Diagnosis Dysmenorrhea [facility] Diagnosis Abnormal mammogram Abnormal mammogram, unspecified documented in this encounter [facility]* Diagnosis Diarrhea, unspecified type- Primary Gastroesophageal reflux disease without esophagitis Esophageal reflux Rectal bleeding Hemorrhage of rectum and anus documented in this encounter [facility]* Diagnosis Mixed hyperlipidemia- Primary Gastroesophageal reflux disease, unspecified whether esophagitis present Anxiety with depression Vitamin D deficiency Unspecified vitamin D deficiency Need for hepatitis C screening test Special screening examination for other specified viral diseases Screening for HIV (human immunodeficiency virus) Special screening examination for other specified viral diseases documented in this encounter [facility]* Diagnosis Vitamin D deficiency- Primary Unspecified vitamin D deficiency documented in this encounter [facility]* Diagnosis Foot pain, bilateral- Primary Pain in limb documented in this encounter [facility]* Diagnosis Pain in both feet- Primary Pain in limb [facility] Diagnosis Right acute suppurative otitis media- Primary Acute suppurative otitis media without spontaneous rupture of eardrum Bilateral impacted cerumen Impacted cerumen [facility] Diagnosis Bacterial sinusitis- Primary Unspecified sinusitis (chronic) Foot pain, right Pain in limb Sciatica, right side Lymphadenopathy, cervical Enlargement of lymph nodes History of otitis Unspecified problem with head, neck, or trunk documented in this encounter [facility]* Diagnosis Tarsal tunnel syndrome of right side- Primary Tarsal tunnel syndrome Gastroesophageal reflux disease, unspecified whether esophagitis present Anxiety with depression Neuropathy of right peroneal nerve documented in this encounter [facility] note* Diagnosis Urinary frequency- Primary documented in this encounter [facility] note* Diagnosis Dermatographic urticaria Itching Unspecified pruritic disorder documented in this encounter [facility] note* Diagnosis Dizziness- Primary Dizziness and giddiness documented in this encounter [facility] note* Diagnosis Pre-operative examination- Primary Preoperative examination, unspecified Ulnar neuropathy at wrist, right Carpal tunnel syndrome of right wrist Carpal tunnel syndrome Mixed hyperlipidemia Gastroesophageal reflux disease, esophagitis presence not specified Bipolar affective disorder, remission status unspecified (HCC) Mixed hyperlipidemia- Primary Gastroesophageal reflux disease, unspecified whether esophagitis present Anxiety with depression Tarsal tunnel syndrome of right side Tarsal tunnel syndrome Foot pain, right Pain in limb Neuropathy of right peroneal nerve Encounter for screening mammogram for malignant neoplasm of breast Other screening mammogram Vitamin D deficiency Unspecified vitamin D deficiency documented in this encounter [facility] note* Diagnosis Pre-operative examination- Primary Preoperative examination, unspecified Ulnar neuropathy at wrist, right Carpal tunnel syndrome of right wrist Carpal tunnel syndrome Mixed hyperlipidemia Gastroesophageal reflux disease, esophagitis presence not specified Bipolar affective disorder, remission status unspecified (HCC) Encounter for screening for malignant neoplasm of breast, unspecified screening modality- Primary Abnormal mammogram Abnormal mammogram, unspecified documented in this encounter [facility] note* Diagnosis Pre-operative examination- Primary Preoperative examination, unspecified Ulnar neuropathy at wrist, right Carpal tunnel syndrome of right wrist Carpal tunnel syndrome Mixed hyperlipidemia Gastroesophageal reflux disease, esophagitis presence not specified Bipolar affective disorder, remission status unspecified (HCC) Dermatographic urticaria Itching Unspecified pruritic disorder documented in this encounter [facility] note* Diagnosis Pre-operative examination- Primary Preoperative examination, unspecified Ulnar neuropathy at wrist, right Carpal tunnel syndrome of right wrist Carpal tunnel syndrome Mixed hyperlipidemia Gastroesophageal reflux disease, esophagitis presence not specified Bipolar affective disorder, remission status unspecified (HCC) Intertrigo Other specified erythematous condition documented in this encounter [facility] note* Diagnosis Pre-operative examination- Primary Preoperative examination, unspecified Ulnar neuropathy at wrist, right Carpal tunnel syndrome of right wrist Carpal tunnel syndrome Mixed hyperlipidemia Gastroesophageal reflux disease, esophagitis presence not specified Bipolar affective disorder, remission status unspecified (HCC) COVID-19- Primary [facility] Diagnosis Pre-operative examination- Primary Preoperative examination, unspecified Ulnar neuropathy at wrist, right Carpal tunnel syndrome of right wrist Carpal tunnel syndrome Mixed hyperlipidemia Gastroesophageal reflux disease, esophagitis presence not specified Bipolar affective disorder, remission status unspecified (HCC) Sore throat- Primary Acute pharyngitis Bilateral impacted cerumen Impacted cerumen URI, acute Acute upper respiratory infections of unspecified site [facility] Additional Instructions Please talk to your family doctor about obtaining outpatient ultrasound and or biopsy of your lymph nodes based on the recurrent swelling and return to the ER should you have any further concernsWMercy [facility] Hospital Work Phone: Hospital Discharge instructions Additional Instructions Your work-up today shows no sign of acute cardiac event or lung pathology. Follow-up with your family doctor for repeat evaluation and return to the ER should you have any further concernsWMercy [facility] Hospital Work Phone: Hospital Discharge instructions Additional Instructions Follow-up with your PCP in 3 to 5 days, return for any worsening of symptoms. [facility] Work Phone: Hospital Discharge instructions Additional Instructions Keep dressing splint intact right lower extremity until follow-up in 1 week Maintain nonweightbearing right lower extremity assisted by crutches versus knee scooter Take prescription medications as directed Ice behind the knee 3 times a day for 15 minutes Keep right lower extremity elevated while resting above the level of heart to manage edema Contact ED or our clinic with any signs or symptoms of infection or DVT Implant Used?: [facility] Work Phone: Reason for referral (narrative)* Diagnostic Procedure Only (Routine) - Pending Review Specialty Diagnoses / Procedures Referred By Ashish riggins Referred To Contact [facility] Diagnoses Encounter for screening mammogram for breast cancer Procedures ANSELMO SCREENING SCREENING MAMMOGRAPHY BI 2-VIEW BREAST INC CAD Wilver Jones MD [address] [place] [address] [facility] [address] [place] [address] Referral ID Status Reason Start Date Expiration Date Visits Requested Visits Authorized [id number] Pending Review Auto-Generat ed Referral 04/01/2022 05/01/2023 1 1 [facility] for referral (narrative)* Diagnostic Procedure Only (Routine) - Pending Review Specialty Diagnoses / Procedures Referred By Contac t Referred To Contact [facility] Diagnoses Other chest pain Procedures NM CARDIAC PERF STRESS/PHARM MYOCARDIAL SPECT MULTIPLE STUDIES Katherine Lozano APRN.CLINICAL APPLICATION CONSULTANT [address] [place] [address] [facility] [address] [id number] Referral ID Status Reason Start Date Expiration Date Visits Requested Visits Authorized [id number] Pending Review Auto-Generat ed Referral 06/26/2022 07/26/2023 1 1 [facility] for referral (narrative)* Diagnostic Procedure Only (Routine) - Authorized Specialty Diagnoses / Procedures Referred By Contac t Referred To Contact [facility] Diagnoses Dysmenorrhea Procedures US FEMALE PELVIS TRANSVAG US TRANSVAGINAL Klaudia Cobb APRN.CLINICAL APPLICATION CONSULTANT [address] [place] [address] [facility] Referral ID Status Reason Start Date Expiration Date Visits Requested Visits Authorized [id number] Authorized Auto-Generat ed Referral 07/15/2022 08/14/2023 1 1 * Outpatient Procedure (Routine) - Pending Review Specialty Diagnoses / Procedures Referred By Contac t Referred To Contact [facility] Diagnoses Dysmenorrhea Menstrual migraine without status migrainosus, not intractable Procedures INSERT INTRAUTERINE DEVICE LEVONORGESTREL IU 52MG 5 YR INSERT INTRAUTERINE DEVICE Klaudia Cobb APRN.CLINICAL APPLICATION CONSULTANT [address] [place] [address] [facility] [address] [place] [address] Referral ID Status Reason Start Date Expiration Date Visits Requested Visits Authorized [id number] Pending Review Auto-Generat ed Referral 07/15/2022 07/15/2023 1 1 * Diagnostic Procedure Only (Routine) - Pending Review Specialty Diagnoses / Procedures Referred By Ashish t Referred To Contact [facility] Diagnoses Dysmenorrhea Procedures PELVIC US WHI US PELVIC NONOBSTETRIC REAL-TIME IMAGE COMPLETE Klaudia Cobb APRN.CLINICAL APPLICATION CONSULTANT [address] [place] [address] [facility] [address] [place] [address] Referral ID Status Reason Start Date Expiration Date Visits Requested Visits Authorized [id number] Pending Review Auto-Generat ed Referral 07/15/2022 07/15/2023 1 1 * Diagnostic Procedure Only (Routine) - Pending Review Specialty Diagnoses / Procedures Referred By Ashish t Referred To Contact [facility] Diagnoses Encounter for gynecological examination with abnormal finding Encounter for screening mammogram for breast cancer Procedures ANSELMO SCREENING W LAUREANO SCREENING DIGITAL BREAST TOMOSYNTHESIS BI SCREENING MAMMOGRAPHY BI 2-VIEW BREAST INC CAD Klaudia Cobb APRN.CLINICAL APPLICATION CONSULTANT [address] [place] [address] [facility] [address] [place] [address] Referral ID Status Reason Start Date Expiration Date Visits Requested Visits Authorized [id number] Pending Review Auto-Generat ed Referral 07/15/2022 08/14/2023 1 1 [facility] for referral (narrative)* Diagnostic Procedure Only (Routine) - Pending Review Specialty Diagnoses / Procedures Referred By Ashish t Referred To Contact [facility] Diagnoses Abnormal mammogram Procedures US BREAST LTD RIGHT US BREAST UNI REAL TIME WITH IMAGE LIMITED Wilver Jones MD [address] [place] [address] [facility] [address] [place] [address] Referral ID Status Reason Start Date Expiration Date Visits Requested Visits Authorized [id number] Pending Review Auto-Generat ed Referral 07/16/2022 08/15/2023 1 1 * Diagnostic Procedure Only (Routine) - Pending Review Specialty Diagnoses / Procedures Referred By Contac t Referred To Contact [facility] Diagnoses Abnormal mammogram Procedures US BREAST LTD LEFT US BREAST UNI REAL [place] [address] [place] [address] [facility] [address] [place] [address] Referral ID Status Reason Start Date Expiration Date Visits Requested Visits Authorized [id number] Pending Review Auto-Generat ed Referral 07/16/2022 08/15/2023 1 1 * Diagnostic Procedure Only (Routine) - Pending Review Specialty Diagnoses / Procedures Referred By Ashish t Referred To Contact [facility] Diagnoses Abnormal mammogram Procedures ANSELMO DIAGNOSTIC BILATERAL DIAGNOSTIC MAMMOGRAPHY COMPUTER-AIDED DETCJ BI Wilver Jones MD [address] [place] [address] [facility] [address] [place] [address] Referral ID Status Reason Start Date Expiration Date Visits Requested Visits Authorized [id number] Pending Review Auto-Generat ed Referral 07/16/2022 08/15/2023 1 1 [facility] for referral (narrative)* Diagnostic Procedure Only (Routine) - Pending Review Specialty Diagnoses / Procedures Referred By Contac t Referred To Contact [facility] Diagnoses Abnormal mammogram Procedures US BREAST LTD RIGHT US BREAST UNI REAL TIME WITH IMAGE LIMITED Wilver Jones MD [address] [place] [address] [facility] [address] [place] [address] Referral ID Status Reason Start Date Expiration Date Visits Requested Visits Authorized [id number] Pending Review Auto-Generat ed Referral 04/15/2023 11/12/2023 1 1 * Diagnostic Procedure Only (Routine) - Pending Review Specialty Diagnoses / Procedures Referred By Ashish riggins Referred To Contact [facility] Diagnoses Abnormal mammogram Procedures ANSELMO DIAGNOSTIC RIGHT DIAGNOSTIC MAMMOGRAPHY COMPUTER-AIDED DETCJ UNI Wilver Jones MD [address] [place] [address] [facility] [address] [place] [address] Referral ID Status Reason Start Date Expiration Date Visits Requested Visits Authorized [id number] Pending Review Auto-Generat ed Referral 04/15/2023 11/12/2023 1 1 [facility] for referral (narrative)* Diagnostic Procedure Only (Routine) - Closed Specialty Diagnoses / Procedures Referred By Ashish riggins Referred To Contact [facility] Diagnoses Encounter for screening mammogram for malignant neoplasm of breast Procedures ANSELMO SCREENING SCREENING MAMMOGRAPHY BI 2-VIEW BREAST INC CAD Wilver Jones MD [address] [place] [address] [facility] [address] [place] [address] Referral ID Status Reason Start Date Expiration Date V isits Requested Visits Authorized [id number] Closed Auto-Generate d Referral 07/09/2022 08/08/2023 1 1 [facility] for referral (narrative)* Diagnostic Procedure Only (Routine) - Closed Specialty Diagnoses / Procedures Referred By Ashish riggins Referred To Contact [facility] Diagnoses Dysmenorrhea Procedures US FEMALE PELVIS TRANSVAG US TRANSVAGINAL Klaudia Cobb, PRODUCTION MAINTENANCE MECHANIC.CLINICAL APPLICATION CONSULTANT [address] [place] [address] [facility] Referral ID Status Reason Start Date Expiration Date V isits Requested Visits Authorized [id number] Closed Auto-Generate d Referral 07/15/2022 08/14/2023 1 1 [facility] for referral (narrative)* Diagnostic Procedure Only (Routine) - Closed Specialty Diagnoses / Procedures Referred By Ashish t Referred To Contact [facility] Diagnoses Abnormal mammogram Procedures US BREAST LTD RIGHT US BREAST UNI REAL TIME WITH IMAGE LIMITED Wilver Jones MD [address] [place] [address] [facility] [address] [place] [address] Referral ID Status Reason Start Date Expiration Date V isits Requested Visits Authorized [id number] Closed Auto-Generate d Referral 07/16/2022 08/15/2023 1 1 [facility] for referral (narrative)* Outpatient Procedure (Routine) - Authorized Specialty Diagnoses / Procedures Referred By Ashish t Referred To Contact [facility] Diagnoses Diarrhea, unspecified type Rectal bleeding Procedures COLONOSCOPY DIAGNOSTIC COLONOSCOPY FLX DX W/COLLJ SPEC WHEN PFRMD Luis Angel Lopez MD [address] [place] [address] [facility] [address] [place] [address] Referral ID Status Reason Start Date Expiration Date Visits Requested Visits Authorized [id number] Authorized Auto-Generat ed Referral 3 12/26/2023 1 1 * Outpatient Procedure (Routine) - Authorized Specialty Diagnoses / Procedures Referred By [facility] Referred To Contact [facility] Diagnoses Gastroesophageal reflux disease without esophagitis Diarrhea, unspecified type Rectal bleeding Procedures EGD DIAGNOSTIC ESOPHAGOGASTRODUODENOSC OPY TRANSORAL DIAGNOSTIC Luis Angel Lopez MD [address] [place] [address] [facility] [address] [address] Referral ID Status Reason Start Date Expiration Date Visits Requested Visits Authorized [id number] Authorized Auto-Generat ed Referral 12/26/2023 1 1 [facility] for referral (narrative)* Diagnostic Procedure Only (Routine) - New Request Specialty Diagnoses / Procedures Referred By Ashish riggins Referred To Contact [facility] Diagnoses Encounter for screening mammogram for malignant neoplasm of breast Procedures ANSELMO SCREENING W LAUREANO SCREENING DIGITAL BREAST TOMOSYNTHESIS BI SCREENING MAMMOGRAPHY BI 2-VIEW BREAST INC CAD Wilver Jones MD [address] [place] [address] [facility] [address] [place] [address] Referral ID Status Reason Start Date Expiration Date Visits Requested Visits Authorized [id number] New Request Auto-Generat ed Referral 10/19/2023 11/17/2024 1 1 [facility] for referral (narrative)* Diagnostic Procedure Only (Routine) - New Request Specialty Diagnoses / Procedures Referred By Ashish riggins Referred To Contact [facility] Diagnoses Abnormal mammogram Procedures US BREAST LTD RIGHT US BREAST UNI REAL TIME WITH IMAGE LIMITED Wilver Jones MD [address] [place] [address] [facility] [address] [place] [address] Referral ID Status Reason Start Date Expiration Date Visits Requested Visits Authorized [id number] New Request Auto-Generat ed Referral 10/20/2023 11/18/2024 1 1 * Diagnostic Procedure Only (Routine) - New Request Specialty Diagnoses / Procedures Referred By Ashish riggins Referred To Contact [facility] Diagnoses Encounter for screening for malignant neoplasm of breast, unspecified screening modality Procedures ANSELMO SCREENING W LAUREANO SCREENING DIGITAL BREAST TOMOSYNTHESIS BI SCREENING MAMMOGRAPHY BI 2-VIEW BREAST INC Wilver Rivera MD [address] [place] [address] [facility] [address] [address] Referral ID Status Reason Start Date Expiration Date Visits Requested Visits Authorized [id number] New Request Auto-Generat ed Referral 10/20/2023 11/18/2024 1 1 [facility] for visit Narrative* Diagnostic Procedure Only (Routine) - Closed Specialty Diagnoses / Procedures Referred By Contac t Referred To Contact Radiology / [facility] Diagnoses Other chest pain [R07.89] NM CARDIAC PERF STRESS/PHARM Procedures NUCLEAR STRESS TEST FL Katherine Lozano, PRODUCTION MAINTENANCE MECHANIC.CLINICAL APPLICATION CONSULTANT [address] [place] [address] [facility] [address] [place] [address] Referral ID Status Reason Start Date Expiration Date Visits Re quested Visits Authorized [id number] Closed 07/22/2022 10/20/2022 1 1 [facility] for visit Narrative* Diagnostic Procedure Only (Routine) - Closed Specialty Diagnoses / Procedures Referred By Contac t Referred To Contact Cardiology / CARD LAB [facility] Diagnoses Other chest pain [R07.89] NM CARDIAC PERF STRESS/PHARM Procedures NUCLEAR STRESS TEST Katherine Lozano, PRODUCTION MAINTENANCE MECHANIC.CLINICAL APPLICATION CONSULTANT [address] [place] [address] [facility] [address] [place] [address] Referral ID Status Reason Start Date Expiration Date Visits Re quested Visits Authorized [id number] Closed 07/22/2022 10/20/2022 1 1 [facility] for visit Narrative* Diagnostic Procedure Only (Routine) - Closed Specialty Diagnoses / Procedures Referred By Contac t Referred To Contact [facility] Diagnoses Encounter for screening mammogram for malignant neoplasm of breast Procedures ANSELMO SCREENING SCREENING MAMMOGRAPHY BI 2-VIEW BREAST INC CAD Wilver Jones MD [address] [place] [address] [facility] [address] [place] [address] Referral ID Status Reason Start Date Expiration Date V isits Requested Visits Authorized [id number] Closed Auto-Generate d Referral 07/09/2022 08/08/2023 1 1 [facility] Advance Directives No Advanced Directives Records FoundDocuments on File Type Date Recorded 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 Advance Directive(s) 11/04/2018 7:38 AM Advance Directive(s) 10/26/2018 12:52 PM Advance Directive(s) 01/14/2018 9:18 AM Advance Directive(s) 12/28/2017 7:19 AM Advance Directive Response Recorded Date/ Time Living Will No December 20 4:13am Power of Service Car Driver No December 20, 2021 4:13am Advance Directive Response Recorded Date/ Time Living Will No January 06 022 4:06pm Power of Service Car Driver No January 06, 2022 4:06pm Advance Directive Response Recorded Date/ Time Living Will No June 13, 2022 6:23am Power of Service Car Driver No June 13 6:23am Advance Directive Response Recorded Date/ Time Living Will No July 16, 2022 1 2:14pm Power of Service Car Driver No July 16, 2022 12:14pm Advance Directive Response Recorded Date/ Time Living Will No October 16, 023 11:45am Power of Service Car Driver No October 16, 2022 11:45am Advance Directive Response Recorded Date/ Time Living Will No October 16 023 10:45am Power of Service Car Driver No October 16, 2022 10:45am Advance Directive Response Recorded Date/ Time Living Will No May 02, 2023 9:29am Power of Service Car Driver No May 01 9:29am Chief Complaint and Reason for Visit Chief Complaint swollen lymph node Chief Complaint swollen lymph node headache, dizzy, nausea DIZZINESS Reason for Visit Vertigo Chief Complaint LEFT SHOULDER PAIN Chief Complaint LEFT SHOULDER PAIN M72.2 PLANTAR FASCITIS / RX HERE Chief Complaint LEFT SHOULDER PAIN M72.2 DDD LUMBAR / RX HERE back Chief Complaint LEFT SHOULDER PAIN M72.2 back DDD LUMBAR / RX HERE Chief Complaint M72.2 back DDD LUMBAR / RX HERE Right foot endoscopic plantar fasci Reason for Visit Plantar fascial fibr omatosis Chief Complaint Right foot endoscopi c plantar fasci PLANTAR FASCIAL FIBROMATOSIS. RX HERE Reason for Visit Plantar fascial fibr omatosis Chief Complaint PLANTAR FASCIAL FIBR OMATOSIS. RX HERE PLANTAR FACIAL FIBROMATOSIS LT FOOT RX HERE X-RAY LUMBAR SWOLLEN LYMPH NODE Chief Complaint X-RAY LUMBAR SWOLLEN LYMPH NODE PLANTAR FACIAL FIBROMATOSIS LT FOOT RX HERE R202 R202 Chief Complaint X-RAY LUMBAR SWOLLEN LYMPH NODE R202 R202 PLANTAR FACIAL FIBROMATOSIS LT FOOT RX HERE Family History No Family History Records Found Relationship Condition Age at Onset Recorded Date/T kamron Not Specified Angina at rest Unknown Depression Unknown Cardiac disease Unknown Bipolar I disorder Unknown Reason for Referral Specialty Diagnoses / Procedures Referred By Contac t Referred To Contact [facility] Diagnoses Vertigo Procedures CONSULT TO PHYSICAL THERAPY PHYSICAL THERAPY EVALUATION HIGH COMPLEX 45 MINS Wilver Jones MD [address] [place] [address] [facility] [address] [place] [address] Referral ID Status Reason Start Date Expiration Date Visits Requested Visits Authorized [id number] Pending Review Auto-Generat ed Referral 2 01/09/2023 1 1 Specialty Diagnoses / Procedures Referred By Contac t Referred To Contact Ent - Otolaryngology Diagnoses Chronic vertigo Tinnitus of right ear Procedures CONSULT TO ENT OFFICE/OUTPATIENT [facility] MDM 60-74 MINUTES Kj Edwards PA-C [address] [place] [address] Referral ID Status Reason Start Date Expiration Date Visits Requested Visits Authorized [id number] Authorized PCP Requested Referral 01/23/2022 01/23/2023 1 1 Specialty Diagnoses / Procedures Referred By Contac t Referred To Contact [facility] Diagnoses Vertigo Procedures PT REHAB FOLLOW UP ORDER THERAPEUTIC EXERCISES RE, EA 15 MIN. Jennifer Phillips, PT [facility] [address] [place] [address] Referral ID Status Reason Start Date Expiration Date Visits Requested Visits Authorized [id number] Pending Review PCP Requested Referral Auto-Generate d Referral 2 04/28/2022 1 1 Specialty Diagnoses / Procedures Referred By Contac t Referred To Contact [facility] Diagnoses Dizziness Procedures CONSULT TO PHYSICAL THERAPY PHYSICAL THERAPY EVALUATION HIGH COMPLEX 45 MINS Katherine Lozano APRN.CLINICAL APPLICATION CONSULTANT [address] [place] [address] [facility] [address] [place] [address] Referral ID Status Reason Start Date Expiration Date Visits Requested Visits Authorized [id number] Pending Review Auto-Generat ed Referral 04/01/2022 04/01/2023 1 1 Specialty Diagnoses / Procedures Referred By Contac t Referred To Contact Allergy Diagnoses Dermatographic urticaria Itching Procedures CONSULT TO ALLERGY/IMMUNOLOGY OFFICE/OUTPATIENT [facility] MDM 60-74 MINUTES Katherine Lozano APRN.CLINICAL APPLICATION CONSULTANT [address] [place] [address] Referral ID Status Reason Start Date Expiration Date Visits Requested Visits Authorized [id number] Authorized PCP Requested Referral 04/01/2022 04/01/2023 1 1 Specialty Diagnoses / Procedures Referred By Contac [place] [address] [place] [address] Referral ID Status Reason Start Date Expiration Date Visits Re quested Visits Authorized [id number] Closed 1 1 Specialty Diagnoses / Procedures Referred By Contac t Referred To Contact [facility] Diagnoses Sciatica, right side Procedures CONSULT TO PHYSICAL THERAPY PHYSICAL THERAPY EVALUATION HIGH COMPLEX 45 MINS Wilver Jones MD [address] [place] [address] [facility] [address] [place] [address] Referral ID Status Reason Start Date Expiration Date Visits Requested Visits Authorized [id number] Pending Review Auto-Generat ed Referral 05/07/2023 05/06/2024 1 1 Medications Administered Section Inactive Administered [...] 1:30 PM EDT 0.4 mg Summary Purpose Additional Source Comments Source Comments (unrecognize d section and content) In the event this informatio n is protected by the Federal Confidentiality of Alcohol and Drug Abuse Patient Records regulations: The Federal rules restrict any use of the information to criminally investigate or prosecute any alcohol or drug abuse patient.[facility] the event this information is protected by the Federal Confidentiality of Alcohol and Drug Abuse Patient Records regulations: The Federal rules restrict any use of the information to criminally investigate or prosecute any alcohol or drug abuse patient.[facility] the event this information is protected by the Federal Confidentiality of Alcohol and Drug Abuse Patient Records regulations: The Federal rules restrict any use of the information to criminally investigate or prosecute any alcohol or drug abuse patient.[facility] the event this information is protected by the Federal Confidentiality of Alcohol and Drug Abuse Patient Records regulations: The Federal rules restrict any use of the information to criminally investigate or prosecute any alcohol or drug abuse patient.[facility] the event this information is protected by the Federal Confidentiality of Alcohol and Drug Abuse Patient Records regulations: The Federal rules restrict any use of the information to criminally investigate or prosecute any alcohol or drug abuse patient.[facility] the event this information is protected by the Federal Confidentiality of Alcohol and Drug Abuse Patient Records regulations: The Federal rules restrict any use of the information to criminally investigate or prosecute any alcohol or drug abuse patient.[facility] the event this information is protected by the Federal Confidentiality of Alcohol and Drug Abuse Patient Records regulations: The Federal rules restrict any use of the information to criminally investigate or prosecute any alcohol or drug abuse patient.[facility]igh[facility] the event this information is protected by the Federal Confidentiality of Alcohol and Drug Abuse Patient Records regulations: The Federal rules restrict any use of the information to criminally investigate or prosecute any alcohol or drug abuse patient.[facility] the event this information is protected by the Federal Confidentiality of Alcohol and Drug Abuse Patient Records regulations: The Federal rules restrict any use of the information to criminally investigate or prosecute any alcohol or drug abuse patient.[facility]igh[facility] the event this information is protected by the Federal Confidentiality of Alcohol and Drug Abuse Patient Records regulations: The Federal rules restrict any use of the information to criminally investigate or prosecute any alcohol or drug abuse patient.[facility]igh[facility] the event this information is protected by the Federal Confidentiality of Alcohol and Drug Abuse Patient Records regulations: The Federal rules restrict any use of the information to criminally investigate or prosecute any alcohol or drug abuse patient.[facility] the event this information is protected by the Federal Confidentiality of Alcohol and Drug Abuse Patient Records regulations: The Federal rules restrict any use of the information to criminally investigate or prosecute any alcohol or drug abuse patient.[facility] the event this information is protected by the Federal Confidentiality of Alcohol and Drug Abuse Patient Records regulations: The Federal rules restrict any use of the information to criminally investigate or prosecute any alcohol or drug abuse patient.[facility] the event this information is protected by the Federal Confidentiality of Alcohol and Drug Abuse Patient Records regulations: The Federal rules restrict any use of the information to criminally investigate or prosecute any alcohol or drug abuse patient.[facility] the event this information is protected by the Federal Confidentiality of Alcohol and Drug Abuse Patient Records regulations: The Federal rules restrict any use of the information to criminally investigate or prosecute any alcohol or drug abuse patient.[facility]igh[facility] the event this information is protected by the Federal Confidentiality of Alcohol and Drug Abuse Patient Records regulations: The Federal rules restrict any use of the information to criminally investigate or prosecute any alcohol or drug abuse patient.[facility]igh[facility] the event this information is protected by the Federal Confidentiality of Alcohol and Drug Abuse Patient Records regulations: The Federal rules restrict any use of the information to criminally investigate or prosecute any alcohol or drug abuse patient.[facility]igh[facility] the event this information is protected by the Federal Confidentiality of Alcohol and Drug Abuse Patient Records regulations: The Federal rules restrict any use of the information to criminally investigate or prosecute any alcohol or drug abuse patient.[facility]ighIn the event this information is protected by the Federal Confidentiality of Alcohol and Drug Abuse Patient Records regulations: The Federal rules restrict any use of the information to criminally investigate or prosecute any alcohol or drug abuse patient.[facility]ighIn the event this information is protected by the Federal Confidentiality of Alcohol and Drug Abuse Patient Records regulations: The Federal rules restrict any use of the information to criminally investigate or prosecute any alcohol or drug abuse patient.[facility] the event this information is protected by the Federal Confidentiality of Alcohol and Drug Abuse Patient Records regulations: The Federal rules restrict any use of the information to criminally investigate or prosecute any alcohol or drug abuse patient.[facility] the event this information is protected by the Federal Confidentiality of Alcohol and Drug Abuse Patient Records regulations: The Federal rules restrict any use of the information to criminally investigate or prosecute any alcohol or drug abuse patient.[facility]ighIn the event this information is protected by [...] or prosecute any alcohol or drug abuse patient.[facility]igh[facility] the event this information is protected by the Federal Confidentiality of Alcohol and Drug Abuse Patient Records regulations: The Federal rules restrict any use of the information to criminally investigate or prosecute any alcohol or drug abuse patient.[facility]igh[facility] the event this information is protected by the Federal Confidentiality of Alcohol and Drug Abuse Patient Records regulations: The Federal rules restrict any use of the information to criminally investigate or prosecute any alcohol or drug abuse patient.[facility]igh[facility] the event this information is protected by the Federal Confidentiality of Alcohol and Drug Abuse Patient Records regulations: The Federal rules restrict any use of the information to criminally investigate or prosecute any alcohol or drug abuse patient.[facility]igh[facility] the event this information is protected by the Federal Confidentiality of Alcohol and Drug Abuse Patient Records regulations: The Federal rules restrict any use of the information to criminally investigate or prosecute any alcohol or drug abuse patient.[facility]igh[facility] the event this information is protected by the Federal Confidentiality of Alcohol and Drug Abuse Patient Records regulations: The Federal rules restrict any use of the information to criminally investigate or prosecute any alcohol or drug abuse patient.[facility]igh[facility] the event this information is protected by the Federal Confidentiality of Alcohol and Drug Abuse Patient Records regulations: The Federal rules restrict any use of the information to criminally investigate or prosecute any alcohol or drug abuse patient.[facility]ighIn the event this information is protected by the Federal Confidentiality of Alcohol and Drug Abuse Patient Records regulations: The Federal rules restrict any use of the information to criminally investigate or prosecute any alcohol or drug abuse patient.[facility]ighIn the event this information is protected by the Federal Confidentiality of Alcohol and Drug Abuse Patient Records regulations: The Federal rules restrict any use of the information to criminally investigate or prosecute any alcohol or drug abuse patient.[facility]ighIn the event this information is protected by the Federal Confidentiality of Alcohol and Drug Abuse Patient Records regulations: The Federal rules restrict any use of the information to criminally investigate or prosecute any alcohol or drug abuse patient.[facility]ighIn the event this information is protected by the Federal Confidentiality of Alcohol and Drug Abuse Patient Records regulations: The Federal rules restrict any use of the information to criminally investigate or prosecute any alcohol or drug abuse patient.[facility]ighIn the event this information is protected by the Federal Confidentiality of Alcohol and Drug Abuse Patient Records regulations: The Federal rules restrict any use of the information to criminally investigate or prosecute any alcohol or drug abuse patient.[facility]ighIn the event this information is protected by the Federal Confidentiality of Alcohol and Drug Abuse Patient Records regulations: The Federal rules restrict any use of the information to criminally investigate or prosecute any alcohol or drug abuse patient.[facility]ighIn the event this information is protected by the Federal Confidentiality of Alcohol and Drug Abuse Patient Records regulations: The Federal rules restrict any use of the information to criminally investigate or prosecute any alcohol or drug abuse patient.[facility]ighIn the event this information is protected by the Federal Confidentiality of Alcohol and Drug Abuse Patient Records regulations: The Federal rules restrict any use of the information to criminally investigate or prosecute any alcohol or drug abuse patient.[facility]ighIn the event this information is protected by the Federal Confidentiality of Alcohol and Drug Abuse Patient Records regulations: The Federal rules restrict any use of the information to criminally investigate or prosecute any alcohol or drug abuse patient.[facility]ighIn the event this information is protected by the Federal Confidentiality of Alcohol and Drug Abuse Patient Records regulations: The Federal rules restrict any use of the information to criminally investigate or prosecute any alcohol or drug abuse patient.[facility]ighIn the event this information is protected by the Federal Confidentiality of Alcohol and Drug Abuse Patient Records regulations: The Federal rules restrict any use of the information to criminally investigate or prosecute any alcohol or drug abuse patient.[facility]ighIn the event this information is protected by the Federal Confidentiality of Alcohol and Drug Abuse Patient Records regulations: The Federal rules restrict any use of the information to criminally investigate or prosecute any alcohol or drug abuse patient.[facility]ighIn the event this information is protected by the Federal Confidentiality of Alcohol and Drug Abuse Patient Records regulations: The Federal rules restrict any use of the information to criminally investigate or prosecute any alcohol or drug abuse patient.[facility]ighIn the event this information is protected by the Federal Confidentiality of Alcohol and Drug Abuse Patient Records regulations: The Federal rules restrict any use of the information to criminally investigate or prosecute any alcohol or drug abuse patient.[facility]ighIn the event this information is protected by the Federal Confidentiality of Alcohol and Drug Abuse Patient Records regulations: The Federal rules restrict any use of the information to criminally investigate or prosecute any alcohol or drug abuse patient.[facility]ighIn the event this information is protected by the Federal Confidentiality of Alcohol and Drug Abuse Patient Records regulations: The Federal rules restrict any use of the information to criminally investigate or prosecute any alcohol or drug abuse patient.[facility]ighIn the event this information is protected by the Federal Confidentiality of Alcohol and Drug Abuse Patient Records regulations: The Federal rules restrict any use of the information to criminally investigate or prosecute any alcohol or drug abuse patient.[facility]ighIn the event this information is protected by the Federal Confidentiality of Alcohol and Drug Abuse Patient Records regulations: The Federal rules restrict any use of the information to criminally investigate or prosecute any alcohol or drug abuse patient.[facility]ighIn the event this information is protected by the Federal Confidentiality of Alcohol and Drug Abuse Patient Records regulations: The Federal rules restrict any use of the information to criminally investigate or prosecute any alcohol or drug abuse patient.[facility]ighIn the event this information is protected by the Federal Confidentiality of Alcohol and Drug Abuse Patient Records regulations: The Federal rules restrict any use of the information to criminally investigate or prosecute any alcohol or drug abuse patient.[facility]ighIn the event this information is protected by the Federal Confidentiality of Alcohol and Drug Abuse Patient Records regulations: The Federal rules restrict any use of the information to criminally investigate or prosecute any alcohol or drug abuse patient.[facility]ighIn the event this information is protected by the Federal Confidentiality of Alcohol and Drug Abuse Patient Records regulations: The Federal rules restrict any use of the information to criminally investigate or prosecute any alcohol or drug abuse patient.[facility]ighIn the event this information is protected by the Federal Confidentiality of Alcohol and Drug Abuse Patient Records regulations: The Federal rules restrict any use of the information to criminally investigate or prosecute any alcohol or drug abuse patient.[facility]ighIn the event this information is protected by the Federal Confidentiality of Alcohol and Drug Abuse Patient Records regulations: The Federal rules restrict any use of the information to criminally investigate or prosecute any alcohol or drug abuse patient.[facility]ighIn the event this information is protected by the Federal Confidentiality of Alcohol and Drug Abuse Patient Records regulations: The Federal rules restrict any use of the information to criminally investigate or prosecute any alcohol or drug abuse patient.[facility]ighIn the event this information is protected by the Federal Confidentiality of Alcohol and Drug Abuse Patient Records regulations: The Federal rules restrict any use of the information to criminally investigate or prosecute any alcohol or drug abuse patient.[facility]ighIn the event this information is protected by the Federal Confidentiality of Alcohol and Drug Abuse Patient Records regulations: The Federal rules restrict any use of the information to criminally investigate or prosecute any alcohol or drug abuse patient.[facility]ighIn the event this information is protected by the Federal Confidentiality of Alcohol and Drug Abuse Patient Records regulations: The Federal rules restrict any use of the information to criminally investigate or prosecute any alcohol or drug abuse patient.[facility]ighIn the event this information is protected by the Federal Confidentiality of Alcohol and Drug Abuse Patient Records regulations: The Federal rules restrict any use of the information to criminally investigate or prosecute any alcohol or drug abuse patient.[facility]ighIn the event this information is protected by the Federal Confidentiality of Alcohol and Drug Abuse Patient Records regulations: The Federal rules restrict any use of the information to criminally investigate or prosecute any alcohol or drug abuse patient.[facility]ighIn the event this information is protected by the Federal Confidentiality of Alcohol and Drug Abuse Patient Records regulations: The Federal rules restrict any use of the information to criminally investigate or prosecute any alcohol or drug abuse patient.[facility]ighIn the event this information is protected by the Federal Confidentiality of Alcohol and Drug Abuse Patient Records regulations: The Federal rules restrict any use of the information to criminally investigate or prosecute any alcohol or drug abuse patient.[facility]ighIn the event this information is protected by the Federal Confidentiality of Alcohol and Drug Abuse Patient Records regulations: The Federal rules restrict any use of the information to criminally investigate or prosecute any alcohol or drug abuse patient.[facility]ighIn the event this information is protected by the Federal Confidentiality of Alcohol and Drug Abuse Patient Records regulations: The Federal rules restrict any use of the information to criminally investigate or prosecute any alcohol or drug abuse patient.[facility]ighIn the event this information is protected by the Federal Confidentiality of Alcohol and Drug Abuse Patient Records regulations: The Federal rules restrict any use of the information to criminally investigate or prosecute any alcohol or drug abuse patient.[facility]ighIn the event this information is protected by the Federal Confidentiality of Alcohol and Drug Abuse Patient Records regulations: The Federal rules restrict any use of the information to criminally investigate or prosecute any alcohol or drug abuse patient.[facility]ighIn the event this information is protected by the Federal Confidentiality of Alcohol and Drug Abuse Patient Records regulations: The Federal rules restrict any use of the information to criminally investigate or prosecute any alcohol or drug abuse patient.[facility]ighIn the event this information is protected by the Federal Confidentiality of Alcohol and Drug Abuse Patient Records regulations: The Federal rules restrict any use of the information to criminally investigate or prosecute any alcohol or drug abuse patient.[facility] Care Teams (unrecognized sec tion and content) Parks And Recreation Manager Relationship Specialty Start Date End Date Wilver Jones MD [address] [place], [place] [id number] PCP - General Family Practice 11/18/17 Parks And Recreation Manager Relationship Specialty Start Date End Date Wilver Jones MD [address] [place], [place] [id number] PCP - General Family Practice 11/18/17 Parks And Recreation Manager Relationship Specialty Start Date End Date Wilver Jones MD [address] [place], [place] [id number] [phone] PCP - General Family Practice 11/18/17 Parks And Recreation Manager Relationship Specialty Start Date End Date Wilver Jones MD [address] [place] [address] PCP - General Family Practice 11/18/17 Parks And Recreation Manager Relationship Specialty Start Date End Date Wilver Jones MD [address] [place] [address] PCP - General Family Medicine 11/18/17 Parks And Recreation Manager Relationship Specialty Start Date End Date Wilver Jones MD [address] [place] [address] PCP - General Family Medicine 11/18/17 Parks And Recreation Manager Relationship Specialty Start Date End Date Wilver Jones MD [address] [place] [address] PCP - General Family Medicine 11/18/17 Parks And Recreation Manager Relationship Specialty Start Date End Date Wilver Jones MD [address] [place] [address] PCP - General Family Medicine 11/18/17 Parks And Recreation Manager Relationship Specialty Start Date End Date Wilver Jones MD [address] [place] [address] PCP - General Family Medicine 11/18/17 Parks And Recreation Manager Relationship Specialty Start Date End Date Wilver Jones MD [address] [place] [address] PCP - General Family Medicine 11/18/17 Parks And Recreation Manager Relationship Specialty Start Date End Date Wilver Jones MD [address] [place] [address] PCP - General Family Medicine 11/18/17 Parks And Recreation Manager Relationship Specialty Start Date End Date Wilver Jones MD [address] [place] [address] PCP - General Family Medicine 11/18/17 Parks And Recreation Manager Relationship Specialty Start Date End Date Wilver Jones MD [address] [place] [address] PCP - General Family Medicine 11/18/17 Parks And Recreation Manager Relationship Specialty Start Date End Date Wilver Jones MD [address] [place] [address] PCP - General Family Medicine 11/18/17 Parks And Recreation Manager Relationship Specialty Start Date End Date Wilver Jones MD [address] [place] [address] PCP - General Family Medicine 11/18/17 Parks And Recreation Manager Relationship Specialty Start Date End Date Wilver Jones MD [address] [place] [address] PCP - General Family Medicine 11/18/17 Parks And Recreation Manager Relationship Specialty Start Date End Date Wilver Jones MD [address] [place] [address] PCP - General Family Medicine 11/18/17 Parks And Recreation Manager Relationship Specialty Start Date End Date Wilver Jones MD [address] [facility] [place] [address] PCP - General Family Medicine 11/18/17 Team Status: Active Member Role Status Dates Dr. Wilver Jones MD Family Provider Active Dr. Wilver Jones MD Primary Care Provider Active Team Status: Inactive Member Role Status Dates Dr. Wilver Jones MD Primary Care Provider Active Dr. Fabrizio Vanegas DO Emergency Provider Active Parks And Recreation Manager Relationship Specialty Start Date End Date Wilver Jones MD [address] [place] [address] PCP - General Family Medicine 11/18/17 Parks And Recreation Manager Relationship Specialty Start Date End Date Wilver Jones MD [address] [place] [address] PCP - General Family Medicine 11/18/17 Parks And Recreation Manager Relationship Specialty Start Date End Date Wilver Jones MD [address] [place] [address] PCP - General Family Medicine 11/18/17 Team Status: Inactive Member Role Status Dates Dr. Wilver Jones MD Primary Care Provider Active Dr. Fabrizio Vanegas DO Attending Provider, Emergency Pr ovider Active Team Status: Inactive Member Role Status Dates Dr. Wilver Jones MD Primary Care Provider Active Dr. Bal Yuan DPM Attending Provider, Referring Provider Active Team Status: Active Member Role Status Dates Dr. Wilver Jones MD Primary Care Provider Active Dr. Bal Yuan DPM Attending Provider, Referring Provider Active Parks And Recreation Manager Relationship Specialty Start Date End Date Wilver Jones MD [address] [place] [address] PCP - General Family Medicine 11/18/17 Team Status: Inactive Member Role Status Dates Dr. Wilver Jones MD Primary Care Provider Active Dr. Rakan Espino DO Emergency Provider Active Parks And Recreation Manager Relationship Specialty Start Date End Date Wilver Jones MD [address] [place] [address] PCP - General Family Medicine 11/18/17 Parks And Recreation Manager Relationship Specialty Start Date End Date Wilver Jones MD [address] [place] [address] PCP - General Family Medicine 11/18/17 Parks And Recreation Manager Relationship Specialty Start Date End Date Wilver Jones MD [address] [place] [address] PCP - General Family Medicine 11/18/17 Team Status: Inactive Member Role Status Dates Dr. Wilver Jones MD Primary Care Provider Active Dr. Rakan Espino DO Attending Provider, Emergency Provider Active Parks And Recreation Manager Relationship Specialty Start Date End Date Wilver Jones MD [address] [place] [address] PCP - General Family Medicine 11/18/17 Parks And Recreation Manager Relationship Specialty Start Date End Date Wilver Jones MD [address] [place] [address] PCP - General Family Medicine 11/18/17 Parks And Recreation Manager Relationship Specialty Start Date End Date Wilver Jones MD [address] [place] [address] PCP - General Family Medicine 11/18/17 Parks And Recreation Manager Relationship Specialty Start Date End Date Wilver Jones MD [address] [place] [address] PCP - General Family Medicine 11/18/17 Parks And Recreation Manager Relationship Specialty Start Date End Date Wilver Jones MD [address] [place] [address] PCP - General Family Medicine 11/18/17 Parks And Recreation Manager Relationship Specialty Start Date End Date Wilver Jones MD [address] [place] [address] PCP - General Family Medicine 11/18/17 Parks And Recreation Manager Relationship Specialty Start Date End Date Wilver Jones MD [address] [place] [address] PCP - General Family Medicine 11/18/17 Parks And Recreation Manager Relationship Specialty Start Date End Date Wilver Jones MD [address] [place] [address] PCP - General Family Medicine 11/18/17 Parks And Recreation Manager Relationship Specialty Start Date End Date Wilver Jones MD [address] [place] [address] PCP - General Family Medicine 11/18/17 Team Status: Inactive Member Role Status Dates Dr. Wilver Jones MD Primary Care Provider Active Dr. Bal Yuan , CHAYM Attending Provider Active Parks And Recreation Manager Relationship Specialty Start Date End Date Wilver Jones MD [address] [place] [address] PCP - General Family Medicine 11/18/17 Parks And Recreation Manager Relationship Specialty Start Date End Date Wilver Jones MD [address] [place] [address] PCP - General Family Medicine 11/18/17 Parks And Recreation Manager Relationship Specialty Start Date End Date Wilver Jones MD [address] [place] [address] PCP - General Family Medicine 11/18/17 Parks And Recreation Manager Relationship Specialty Start Date End Date Wilver Jones MD [address] [place] [address] PCP - General Family Medicine 11/18/17 Parks And Recreation Manager Relationship Specialty Start Date End Date Wilver Jones MD [address] [place] [address] PCP - General Family Medicine 11/18/17 Team Status: Inactive Member Role Status Dates Dr. Wilver Jones MD Primary Care Provider Active Dr. Yamila Butt , DO Emergency Provider Active Parks And Recreation Manager Relationship Specialty Start Date End Date Wilver Jones MD [address] [place] [address] PCP - General Family Medicine 11/18/17 Team Status: Active Member Role Status Dates Dr. Wilver Jones MD Primary Care Provider Active Dr. Bal Yuan , RADHA Referring Provider, Other Pro vider Active Dr. Cam Hall MD Attending Provider Active Team Status: Inactive Member Role Status Dates Dr. Wilver Jones MD Primary Care Provider Active Dr. Yamila Butt , DO Attending Provider, Emergency Pro vider Active Parks And Recreation Manager Relationship Specialty Start Date End Date Wilver Jones MD [address] [place] [address] PCP - General Family Medicine 11/18/17 Parks And Recreation Manager Relationship Specialty Start Date End Date Wilver Jones MD [address] [place] [address] PCP - General Family Medicine 11/18/17 Parks And Recreation Manager Relationship Specialty Start Date End Date Wilver Jones MD [address] [place] [address] PCP - General Family Medicine 11/18/17 Parks And Recreation Manager Relationship Specialty Start Date End Date Wilver Jones MD [address] [place] [address] PCP - General Family Medicine 11/18/17 Parks And Recreation Manager Relationship Specialty Start Date End Date Wilver Jones MD [address] [place] [address] PCP - General Family Medicine 11/18/17 Parks And Recreation Manager Relationship Specialty Start Date End Date Wilver Jones MD [address] [place] [address] PCP - General Family Medicine 11/18/17 Parks And Recreation Manager Relationship Specialty Start Date End Date Wilver Jones MD [address] [place] [address] PCP - General Family Medicine 11/18/17 Parks And Recreation Manager Relationship Specialty Start Date End Date Wilver Jones MD [address] [place] [address] PCP - General Family Medicine 11/18/17 Katherine Lozano, PRODUCTION MAINTENANCE MECHANIC.CLINICAL APPLICATION CONSULTANT [address] [place] [address] Outbound Sales Representative Family Medicine 01/24/24 Clover Martin PRODUCTION MAINTENANCE MECHANIC.CLINICAL APPLICATION CONSULTANT [address] [place] [address] Outbound Sales Representative Family Medicine 01/24/24 Parks And Recreation Manager Relationship Specialty Start Date End Date Wilver oJnes MD [address] [place] [address] PCP - General Family Medicine 11/18/17 Katherine Lozano, PRODUCTION MAINTENANCE MECHANIC.CLINICAL APPLICATION CONSULTANT [address] [place] [address] Outbound Sales Representative Family Medicine 01/24/24 Clover Martin PRODUCTION MAINTENANCE MECHANIC.CLINICAL APPLICATION CONSULTANT [address] [place] [address] Outbound Sales Representative Family Medicine 01/24/24 Parks And Recreation Manager Relationship Specialty Start Date End Date Wilver Jones MD [address] [place] [address] PCP - General Family Medicine 11/18/17 Katherine Lozano, PRODUCTION MAINTENANCE MECHANIC.CLINICAL APPLICATION CONSULTANT [address] [place] [address] [facility] 01/24/24 Clover Martin PRODUCTION MAINTENANCE MECHANIC.CLINICAL APPLICATION CONSULTANT [address] [place], [place] [id number] [facility] 01/24/24 Parks And Recreation Manager Relationship Specialty Start Date End Date Wilver Jones MD [address] [place], [place] [id number] PCP - General Family Medicine 11/18/17 Katherine Lozano PRODUCTION MAINTENANCE MECHANIC.CLINICAL APPLICATION CONSULTANT [address] [place], [place] [phone] [facility] 01/24/24 Clover Martin PRODUCTION MAINTENANCE MECHANIC.CLINICAL APPLICATION CONSULTANT [address] [place], [place] [address] [facility] 01/24/24 Parks And Recreation Manager Relationship Specialty Start Date End Date Wilver Jones MD [address] [place], [place] [id number] PCP - General Family Medicine 11/18/17 Katherine Lozano, PRODUCTION MAINTENANCE MECHANIC.CLINICAL APPLICATION CONSULTANT [address] [place], [place] [phone] [facility] 01/24/24 Clover Martin PRODUCTION MAINTENANCE MECHANIC.CLINICAL APPLICATION CONSULTANT [address] [place], [place] [id number] [facility] 01/24/24 Reason for Visit (unrecogniz ed section and content) Reason Comments Radiology US Specialty Diagnoses / Procedures Referred By Contac t Referred To Contact [facility] Diagnoses Abnormal mammogram Procedures US BREAST LTD RIGHT US BREAST UNI REAL TIME WITH IMAGE LIMITED Wilver Jones MD [address] [place] [address] [facility] [address] [place] [address] Referral ID Status Reason Start Date Expiration Date V isits Requested Visits Authorized [id number] Closed Auto-Generate d Referral 07/16/2022 08/15/2023 1 [...] Eval Specialty Diagnoses / Procedures Referred By Ashish t Referred To Contact [facility] Diagnoses Vertigo Procedures CONSULT TO PHYSICAL THERAPY PHYSICAL THERAPY EVALUATION HIGH COMPLEX 45 MINS Wilver Jones MD [address] [place] [address] [facility] [address] [place] [address] Referral ID Status Reason Start Date Expiration Date V isits Requested Visits Authorized [id number] Closed Auto-Generate d Referral 02/15/2021 02/14/2022 1 1 Reason Comments Forms Reason Comments Follow Up Reason Onset Date Comments Population Health Navigation Outreach 03/26/2022 [facility] Medicaid Project Reason Comments Acute Visit L ear feels like the re is fluid in it Reason Comments New Patient Dermatographic urtic aria and itching Specialty Diagnoses / Procedures Referred By Ashish t Referred To Contact Allergy Diagnoses Dermatographic urticaria Itching Procedures CONSULT TO ALLERGY/IMMUNOLOGY OFFICE/OUTPATIENT [facility] MDM 60-74 MINUTES Katherine Lozano APRN.CLINICAL APPLICATION CONSULTANT [address] [place] [address] Referral ID Status Reason Start Date Expiration Date V isits Requested Visits Authorized [id number] Closed PCP Requested Referral 04/01/2022 04/01/2023 1 [...] cervical cancer Procedures CONSULT TO GYNECOLOGY OFFICE/OUTPATIENT [facility] 60-74 MINUTES Wilver Jones MD [address] [place] [address] Referral ID Status Reason Start Date Expiration Date V isits Requested Visits Authorized [id number] Closed PCP Requested Referral Auto-Generated Referral 07/09/2022 [...] US FEMALE PELVIS TRANSVAG US TRANSVAGINAL Klaudia Cobb APRN.CLINICAL APPLICATION CONSULTANT [address] [place] [address] [facility] Referral ID Status Reason Start Date Expiration Date V isits Requested Visits Authorized [id number] Closed Auto-Generate d Referral 07/15/2022 08/14/2023 1 1 Reason Comments Gastroesophageal Reflux Specialty Diagnoses / Procedures Referred By Contac t Referred To Contact General Surgery Diagnoses Gastroesophageal reflux disease without esophagitis Procedures CONSULT TO GENERAL SURGERY OFFICE/OUTPATIENT [facility] 60-74 MINUTES Wilver Jones MD [address] [place] [address] Referral ID Status Reason Start Date Expiration Date V isits Requested Visits Authorized [id number] Closed PCP Requested Referral 12/07/2022 12/07/2023 1 1 Reason Comments Pain Left foot pain Reason Comments Appointment Reason Comments Recheck Reason Comments Forms 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, 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, [facility] Reason Comments Ear Pain RIGHT ear with swoll en lymphnodes DAVIN neck, congestion with yellow/green phlegm x 2 days Reason Comments Follow Up Reason Onset Date Comments Refill Request 05/13/2023 Reason Comments Letter Reason Onset Date Comments Refill Request 06/30/2023 Reason Comments 6 Month Exam Reason Comments Urinary Frequency Frequency and urgenc y x 2 days Reason Onset Date Comments Refill Request 09/03/2023 Reason Comments Dizziness Reason Comments Vertigo X1 day Reason Comments Orders Reason Onset Date Comments Refill Request 11/09/2023 Reason Comments 02/23/2023 COLON/EGD ASC Reason Onset Date Comments Refill Request 03/23/2024 Reason Comments Telemedicine Reason Onset Date Comments Refill Request 05/08/2024 Reason Comments Chest Pain Reason Comments Sinus Problem Nasal congestion, R side easr pain, and back of R side of neck, fatigue, sore throat, x 2 days Goals (unrecognized section and content) Goals may be documented in a n alternate sectionGoals may be documented in an alternate sectionGoals may be documented in an alternate sectionGoals may be documented in an alternate sectionGoals may be documented in an alternate sectionGoals may be documented in an alternate sectionGoals may be documented in an alternate sectionGoals may be documented in an alternate sectionGoals may be documented in an alternate sectionGoals may be documented in an alternate section INFORMATION SOURCE (unrecogn ized section and content) DATE CREATED AUTHOR 07/28/2022 [facility] DATE CREATED AUTHOR AUTHOR'S ORGANIZ ATION 08/15/2023 [facility] [place] DATE CREATED AUTHOR AUTHOR'S ORGANIZ ATION 05/29/2024 [facility] DATE CREATED AUTHOR AUTHOR'S ORGANIZ ATION 06/05/2024 [facility] FOR RECORDS PERTAINING TO PATIENTS WHO [...] BE BASED ON THE PRIMARY CLINICAL RECORDS. [employer] [facility]. provides no warranty or guarantee of the accuracy or completeness of information in this document.
== END 2024-09-04 05:15 | disposition home or self-care (01) ==
LOC: ED 05:06
PROVIDERS: Emergency Provider Emergency Medicine; PCP Family Medicine; Visit Provider Emergency Medicine
DX: L30.4 Erythema intertrigo (principal); E66.9 Obesity, unspecified; F17.210 Nicotine dependence, cigarettes, uncomplicated; Z68.33 Body mass index [BMI] 33.0-33.9, adult
CPT/HCPCS: 99282

== ENCOUNTER 2025-01-24 19:21 | Emergency (ER) | payer MEDICAID, SELFPAY ==
[2025-01-24 19:21] VITALS: BP 138/94; PULSE 108; RESP 16; TEMP 36.6; O2SAT 99; BMI 32.1
--- OUTSIDE RECORDS SUMMARY | 2025-01-24 23:02 | XMS RPT_ITS | CCD ---
Author Organization [facility] Care Team Providers Care Seed Cleaning Manager Name Role Phone Natalya Griffith LPN Unavailable Unavailable Natalya Griffith LPN Unavailable Unavailable Wilver Jones MD Primary Care Provider Wilver Jones MD Primary Care Provider Dr. Wilver Jones Primary Care Provider Dr. Wilver Jones Referring Provider Chaz SKY, JOSE DANIEL Underwood Attending Provider Wilver Jones MD Primary Care [...] Unavailable DREA SANDOVAL MD Attending Unavailable Marta GENERAL PRODUCTION LABORER.Katherine LAZAR Unavailable Mario GENERAL PRODUCTION LABORER.FOOD SERVICE CASHIERClover Unavailable [phone] Dr. Wilver Jones MD Primary Care Provider Dr. Wilver Jones MD Referring Provider Ana Paula FEED MILLER-CTemo Attending Provider Otilio BURT, Dr. Ford Emergency Provider Karen, Wilver Primary Care Unavailable Temo Goss NP Attending Unavailable Karen, Wilver Referring Unavailable Bal Yuan Referring Unavailable Bal Yuan Attending Unavailable Kinnelon, Wilver Primary Care Unavailable Kinnelon, Wilver Primary Care Unavailable Logan Yañez Attending Unavailable Yang Centeno Attending Unavailable Karen, Wilver Primary Care Unavailable Hamzah Nicolas Attending Unavailable Karen, Wilver Referring Unavailable Kinnelon, Wilver Primary Care Unavailable KATHERINE LOZANO Attending Unavailable KAREN, WILVER Escoto Primary Care Unavailable KATHERINE LOZANO Referring Unavailable KAREN, WILVER Escoto Primary Care Unavailable KAREN, WILVER J Referring Unavailable KAREN, WILVER J Primary Care Unavailable PATTI CAM Attending Unavailable KATHERINE LOZANO Referring Unavailable KAREN, WLIVER Escoto Primary Care Unavailable KATHERINE LOZANO Attending Unavailable KAREN, WILVER Escoto Primary Care Unavailable KATHERINE LOZANO Attending Unavailable KAREN, WILVER Escoto Primary Care Unavailable KAREN, WILVER Escoto Primary Care Unavailable Allergies Allergy Classification Reported Allergen(s) Allergy Type Date of Onset Reaction(s) Facility Azole Antifungals (1 source) tioconazole Drug Allergy 01-30-[address] [facility] (20 sources) tioconazole; Translations: [TIOCONAZOLE] Drug Allergy 01-30-[address] [facility] Work Phone: (1 source) tioconazole Drug Allergy 09-04-2024 [facility] Repository Medications Current Medications Medication Drug Class(es) [...] 5 MG TABS take as directed OXYCODONE-ACETAMINOPHEN [id number] Natalya Griffith LPN Start: 10-08-2016 PERCOCET 10-32 5 MG TABS take as directed OXYCODONE-ACETAMINOPHEN [id number] Natalya Griffith LPN End: 12-25-2022 oxyCODONE-acetaminophen (PER COCET) 5-325 mg tablet Take by mouth every 8 hours as needed for pain. 0 12/25/2022 Discontinued Comment on above: Take by mouth every 8 hours as needed for pain. amoxicillin 875 mg oral tablet (1 source) Penicillin-class Antibacterial Start: 04-08-19 End: 04-15-19 take 1 tablet by mouth twice daily amoxicillin (AMOXIL) 875 mg tablet Take 1 tablet by mouth two times a day for 7 days. 14 tablet 0 04/08/2023 04/15/2023 Active Comment on above: Take 1 tablet by cristóbal th two times a day for 7 days. cephalexin 500 mg oral capsule (2 sources) Cephalosporin Antibacterial Start: 08-02-19 End: 08-09-19 take 1 capsule by mouth twice daily cephALEXin (KEFLEX) 500 mg capsule Take 1 capsule by mouth two times a day for 7 days. 14 capsule 0 08/02/2023 08/09/2023 Active cetirizine hydrochloride 10 mg oral tablet (20 sources) Histamine-1 Receptor Antagonist Start: 04-01-19 End: 04-04-19 take 1 tablet by mouth once daily Cetirizine 10 mg tablet Active 10 mg PO DAILY June 13, 2022 12:00am Start: 09-29-2021 End: 04-01-2022 take 1 tablet [...] daily. Take one pill by mouth daily. cyclobenzaprine hydrochloride 10 mg oral tablet (2 sources) Muscle Relaxant Start: take 10 mg by mouth twice daily Cyclobenzaprine Active 10 MG PO TWICE A DAY July 16, 2022 12:00am diclofenac potassium 50 mg oral tablet (13 sources) Nonsteroidal Anti-inflammatory Drug Start: diclofenac potassium (CATAFLAM) 50 mg tablet 09/07/2023 Active fluconazole 150 mg oral tablet (2 sources) Azole Antifungal Start: End: 04-02-2 023 take 1 tablet by mouth once daily [...] capsule (20 sources) Serotonin Reuptake Inhibitor Start: 05-02-2023 take 1 capsule by mouth once daily FLUoxetine (PROZAC) 10 mg capsule Take 10 mg by mouth once daily. 05/02/2023 Active Start: 05-02-2023 take 1 capsule by mo [facility] once daily FLUoxetine (PROZAC) 20 mg capsule Take 20 mg by mouth once daily. 06/30/2023 Active Start: 10-16-2022 End: 07-19-2023 take 3 capsules by mouth once daily FLUoxetine (PROZAC) 10 mg capsule Take 30 mg by mouth once daily. 10/16/2022 07/19/2023 Discontinued Start: 10-16-2022 FLUoxetine (VA OZAC) 10 mg capsule Take one capsule for six days then increase to take two capsules daily 0 10/16/2022 Active Comment on above: Take one capsule for six days then increase to take two capsules daily Take 30 mg by mouth once daily. hydrOXYzine pamoate 50 mg oral capsule (20 sources) Antihistamine Start: take 1 capsule by mouth twice daily Hydroxyzine Pamoate 50 mg capsule Active 50 mg PO TWICE A DAY September 04, 2024 12:00am Start: 05-02-2023 take 1 capsule by mo uth three times daily Hydroxyzine Pamoate 25 mg capsule Active 25 mg PO THREE TIMES A DAY May 02, 2023 12:00am Start: 10-08-2022 take 1 capsule by mo ut every twelve hours as needed hydrOXYzine pamoate (VISTARIL) 25 mg capsule Take 25 mg by mouth two times a day as needed for anxiety. 10/08/2022 Active Comment on above: Take 25 mg by mouth two times a day as needed for anxiety. levonorgestrel 0.589333 mg/hr intrauterine system (20 sources) Progestin, Progestin-containing Intrauterine Device Start: 08-01-19 End: 07-30-19 28 levonorgestrel (MIRENA) 21 mcg/24 hours (8 yrs) [...] topical powder (20 sources) Polyene Antifungal Start: 09-05-19 Nystatin 100,000 unit/gram powder Active 1 NMA TOPICAL 4 TIMES DAILY September 04, 2024 12:00am Start: 09-01-2022 End: 03-23-2024 nystatin (NYSTOP) powder Ind ications: Intertrigo Apply 1 application to affected area four times daily. 60 g 2 03/23/2024 Active Start: 06-22-2022 End: 09-01-2022 nystatin (MYCOSTATIN) cream Indications: Candidiasis Apply 1 application to affected area twice daily. 45 g 0 06/22/2022 09/01/2022 Discontinued Comment on above: Apply 1 application to affected area twice daily. Apply 1 application to affected area four times daily. nystatin 820904 unt/ml / triamcinolone acetonide 1 mg/ml topical cream (1 source) Polyene Antifungal, Corticosteroid Start: 09-05-19 Nystatin-Triamcino lone 100,000-0.1 unit/g-% cream Active 1 NMA TOPICAL TWICE A DAY 15 7 0 September 04, 2024 12:00am omeprazole 40 mg delayed release oral capsule (20 sources) Proton Pump Inhibitor Start: 05-19-19 End: 02-10-20 take 1 capsule by mouth once daily omeprazole (PRILOSEC) 40 mg capsule Take 1 capsule by mouth once daily. 30 capsule 3 10/12/2024 02/09/2025 Active Start: 05-02-2023 End: 12-27-2023 take 1 capsule by mouth once daily Omeprazole 20 mg capsule,delayed release(DR/EC) Discontinued 20 mg PO DAILY May 02, 2023 12:00am December 27, 2023 11:50am Start: 03-02-2023 End: 04-01-2023 take 1 capsule [...] on above: Take 1 capsule by mo [facility] daily before breakfast. 1/2 hr before meal. Take 1 capsule by mo [facility] once daily. oseltamivir 75 mg oral capsule (2 sources) Neuraminidase Inhibitor Start: End: 4 take 1 capsule by mouth twice daily oseltamivir (TAMIFLU) 75 mg capsule Take 1 capsule by mouth two times a day for 5 days. 10 capsule 0 03/26/2023 03/31/2023 Active Comment on above: Take 1 capsule by mo uth two times a day for 5 days. pregabalin 50 mg oral capsule (14 sources) Start: take 1 capsule by mouth three times daily Pregabalin 50 mg capsule Active 50 mg PO THREE TIMES A DAY December 27, 2023 1:00am Start: 08-03-2023 take 1 capsule by mo [facility] every twelve hours pregabalin (LYRICA) 50 mg [...] on above: Take 1 capsule by mo [facility] twice daily for 60 days. sulfamethoxazole 800 [...] Comment on above: Take 1 tablet by [facility] twice daily for 3 days. Completed/Discontinued Medications Medication Drug Class(es) Dates Sig (Normalized) Sig (Original) acetaminophen 325 mg / HYDROcodone bitartrate 5 mg oral tablet (20 sources) Opioid Agonist Start: 10-02-2018 End: 10-05-2018 Hydrocodone-Acetami nophen 1 TABLET tablet Discontinued 1 {tbl} PO EVERY 6 HOURS NEEDED as needed for Pain 12 3 0 October 02, 2018 October 04, 2018 12:00am October 05, 2018 12:07am Carpal tunnel syndrome of right wrist Carpal tunnel syndrome, right upper limb Start: 10-02-2018 End: 10-05-2018 take 1 tablet by mouth every six hours as needed Hydrocodone-Acetaminophen Discontinued 1 TABLET PO EVERY 6 HOURS NEEDED 12 3 October 02, 2018 October 05, 2018 12:07am Start: 03-07-2018 End: 03-09-2018 Hydrocodone-Acetaminophen 1 TABLET tablet Discontinued 1 {tbl} PO EVERY 4 HOURS NEEDED as needed for Pain 10 2 0 March 07, 2018 1:00am March 08, 2018 1:00am March 09, 2018 1:09am Abscess Cutaneous abscess, unspecified Start: 03-07-2018 End: 03-09-2018 take 1 tablet by mouth every four hours as needed Hydrocodone-Acetaminophen Discontinued 1 TABLET PO EVERY 4 HOURS NEEDED 10 2 March 07, 2018 1:00am March 09, 2018 1:09am amoxicillin 875 mg / clavulanate 125 mg oral tablet (1 source) Penicillin-class Antibacterial Start: 06-04-2024 End: 06-11-2024 Amoxicillin-Pot Clavulanate 875-125 mg tablet Discontinued 1 {tbl} PO TWICE A DAY 14 7 0 June 04, 2024 12:00am June 10, 2024 12:00am June 11, 2024 12:08am aspirin 81 mg delayed release oral tablet (12 sources) Platelet Aggregation Inhibitor, Nonsteroidal Anti-inflammatory Drug Start: 10-23-2022 End: 05-02-2023 take 2 tablets by mouth once daily Aspirin 81 mg tablet,delayed release (DR/EC) Discontinued 162 mg PO DAILY 28 October 23, 2022 12:00am May 02, 2023 9:34am Start: 10-23-2022 End: 05-02-2023 take 162 mg by mouth once daily Aspirin Discontinued 1 62 MG PO DAILY October 23, 2022 12:00am May 02, 2023 9:34am End: 01-13-2023 take 1 tablet by mouth once daily aspirin, enteric coated (ECOTRIN LOW STRENGTH) 81 mg EC tablet Take 81 mg by mouth once daily. 01/13/2023 Discontinued Comment on above: Take 81 mg by mouth once daily. benzonatate 100 mg oral capsule (2 sources) Non-narcotic Antitussive Start: End: take 1 capsule by mouth three times daily as needed for cough benzonatate (TESSALON PERLES) 100 mg capsule Indications: Viral syndrome Take 1 capsule by mouth three times daily as needed for Cough. 21 capsule 0 08/29/2019 08/20/2021 Discontinued (Other) Comment on above: Take 1 capsule by [facility] three times daily as needed for Cough. busPIRone hydrochloride 5 mg oral tablet (4 sources) Start: End: take 1-2 tablets by mouth three times daily as needed busPIRone (BUSPAR) 5 mg tablet Indications: ENRIKE (generalized anxiety disorder) Take 1-2 tablets by mouth three times daily as needed. 90 tablet 0 08/20/2021 01/09/2022 Discontinued Comment on above: Take 1-2 tablets by mouth three times daily as needed. 24 hr desvenlafaxine succinate 50 mg extended release oral tablet (8 sources) Serotonin and Norepinephrine Reuptake Inhibitor Start: End: take 1 tablet by mouth once daily desvenlafaxine ER (PRISTIQ) 50 mg 24 hr tablet Take 1 tablet by mouth once daily. 30 tablet 5 06/04/2022 07/15/2022 Discontinued Comment on above: Take 1 tablet by cristóbal th once daily. diazePAM 5 mg oral tablet [...] above: Take 1 tablet by cristóbal th every 6 hours as needed for up to 7 days. DIPHENHYDRAMINE HCL CAPS (2 sources) Histamine-1 Receptor Antagonist Start: BENADRYL ALLERGY CAPS take as directed DIPHENHYDRAMINE HCL CAPS [id number] Natalya Griffith LPN Start: 10-08-2016 BENADRYL ALLER GY CAPS take as directed DIPHENHYDRAMINE HCL CAPS [id number] Natalya Griffith LPN doxycycline monohydrate 100 mg [...] above: Take 1 tablet by cristóbal th two times a day for 10 days. DULoxetine 20 mg delayed release oral capsule (3 sources) Serotonin and Norepinephrine Reuptake Inhibitor Start: 05-28-2022 End: 06-27-2022 take 1 capsule by mouth once daily DULoxetine (CYMBALTA) 20 mg capsule Indications: Anxiety with depression Take 1 capsule by mouth once daily. 30 capsule 2 05/28/2022 06/04/2022 Discontinued Comment on above: Take 1 capsule by [facility] once daily. ergocalciferol 1.25 mg oral capsule (20 sources) Provitamin D2 Compound Start: 06-24-2022 End: 07-19-2023 take 1 capsule by mouth every week ergocalciferol 50,000 unit capsule (VITAMIN D2, DRISDOL) Indications: Vitamin D deficiency Take 1 capsule by mouth one time a week. 12 capsule 3 06/24/2022 01/13/2023 Discontinued Comment on above: Take 1 capsule by [facility] one time a week. famotidine 10 mg oral tablet (20 sources) Histamine-2 Receptor Antagonist Start: 06-13-2022 End: 12-27-2023 take 1 tablet by mouth once daily before mealtime Famotidine (Pepcid Ac) 10 mg Tablet Discontinued 10 mg PO DAILY June 13, 2022 12:00am December 27, 2023 11:51am Start: 04-07-2022 End: 01-13-2023 take 1 tablet by mouth twice daily famotidine (PEPCID) 20 mg tablet Take 1 tablet by mouth twice daily. 60 tablet 11 04/07/2022 01/13/2023 Discontinued Comment on above: Take 1 tablet by [facility] twice daily. fluticasone propionate 0.05 mg/actuat metered dose nasal spray (20 sources) Corticosteroid Start : 04-01 End: 09-08 take 2 spray(s) by mouth once daily fluticasone (FLONASE) 50 mcg/actuation nasal spray Indications: Eustachian tube disorder, left Use 2 Sprays in each nostril once daily. Rinse mouth after use. 1 Each 3 04/01/2022 09/08/2022 Discontinued Comment on above: Use 2 Sprays in each nostril once daily. Rinse mouth after use. hydroCHLOROthiazide 12.5 mg oral capsule (4 sources) Thiazide Diuretic Start : 01-23 End: 02-04 take 1 capsule by mouth once daily hydroCHLOROthiazide (HYDRODIURIL, ESIDRIX) 12.5 mg capsule Indications: Tinnitus of right ear Take 1 capsule by mouth once daily. 30 capsule 12 01/23/2022 02/04/2022 Discontinued Comment on above: Take 1 capsule by [facility] once daily. ibuprofen 200 mg oral tablet (4 sources) Nonsteroidal Anti-inflammatory Drug Start : 10-08 ADDAPRIN 200 MG TABS take as directed IBUPROFEN [id number] Natalya Griffith LPN End: 08-20-2021 take 4 tablets by mouth [...] hours. oxyCODONE hydrochloride 5 mg oral capsule (7 sources) Opioid Agonist Start: 10-24-19 End: 05-02-19 take 1 capsule by mouth every six hours as needed for pain Oxycodone 5 mg capsule Discontinued 5 mg PO EVERY 6 HOURS as needed for pain 28 7 0 October 23, 2022 May 02, 2023 9:32am Other acute postprocedural pain Other acute postprocedural pain predniSONE 20 mg oral tablet (3 sources) Start: 06-27-19 End: 07-16-19 take 1 tablet by mouth once daily predniSONE (DELTASONE) 20 mg tablet Take 1 tablet by mouth once daily. 5 tablet 0 06/26/2022 07/15/2022 Discontinued Comment on above: Take 1 tablet by cristóbal once daily. regadenoson (LEXISCAN) 0.4 mg/5 mL [...] (LEXISCAN) traZODone hydrochloride 50 mg oral tablet (16 sources) Serotonin Reuptake Inhibitor Start: 10-17-19 End: 05-02-19 Trazodone 50 mg tablet Discontinued 25 mg PO AT BEDTIME NEEDED as needed for sleep October 16, 2022 12:00am May 02, 2023 9:32am Start: 10-16-2022 End: 05-02-2023 take 25 mg by mouth at bedtime [...] without status migrainosus] Chronic Headache; including migraine (13 sources) Headache; Translations: [Headache] 05-21-2021 Episodic Immunizations and screening for infectious disease (20 sources) Patient encounter status; Translations: [Encounter for screening for COVID-19] Episodic Inflammation; infection of eye (except that caused by tuberculosis or sexually transmitteddisease) (13 sources) External hordeolum; Translations: [Hordeolum externum unspecified eye, unspecified eyelid] 08-17-2020 Episodic Inflammatory diseases of female pelvic organs (13 sources) Abscess of labia; Translations: [Abscess of vulva] 03-04-2016 Episodic Lymphadenitis (19 sources) Anterior cervical lymphadenopathy; Translations: [Localized enlarged lymph nodes] 12-28-2021 Episodic Menstrual disorders (2 sources) Dysmenorrhea; Translations: [Dysmenorrhea, unspecified] Chronic Mycoses (1 source) Candidiasis; Translations: [Candidiasis, unspecified] Episodic Nonmalignant breast conditions (20 sources) Fibroadenosis of breast; 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] 11-23-2007 Chronic Nonmalignant breast conditions (1 source) Breast tenderness; Translations: [Mastodynia] 09-01-2022 Episodic Nonspecific chest pain (13 sources) Acute chest pain; Translations: [Chest pain, unspecified] Onset: 3 06-13-2022 Episodic Nutritional deficiencies (5 sources) Vitamin D deficiency; Translations: [Vitamin D deficiency, unspecified] Onset: 5 Chronic Open wounds of extremities (13 sources) Puncture wound of middle finger of left hand; Translations: [Puncture wound with foreign body of left middle finger without damage to nail, initial encounter] 01-27-2019 Episodic Open wounds of extremities (13 sources) Laceration of right index finger; Translations: [Laceration without foreign body of right index finger without damage to nail, initial encounter] 08-25-2020 Episodic Other acquired deformities (1 source) Leg length inequality; Translations: [Unequal limb length (acquired), unspecified site] 12-27-2023 Episodic Other circulatory disease (1 source) Elevated blood-pressure reading without diagnosis of hypertension; Translations: [Elevated blood-pressure reading, without diagnosis of hypertension] Episodic Other connective tissue disease (1 source) Muscle pain; Translations: [Myalgia, unspecified site] Episodic Other connective tissue disease (2 sources) Plantar fasciitis; Translations: [Plantar fascial fibromatosis] Episodic Other connective tissue disease (7 sources) Plantar fascial fibromatosis; Translations: [Plantar fascial fibromatosis] 10-23-2022 Episodic Other connective tissue disease (2 sources) Plantar fascial fibromatosis; Translations: [Plantar fascial [...] Intertrigo; Translations: [Erythema intertrigo] 09-01-2022 Episodic Other inflammatory condition of skin (1 source) Irritant contact dermatitis; Translations: [Erythema intertrigo] 09-04-2024 Episodic Other lower respiratory disease (1 source) Snoring; Translations: [Snoring] Onset: Episodic Other nervous system disorders (20 sources) [...] Chronic Other nervous system disorders (1 source) Other chronic pain; Translations: [Chronic low back pain, unspecified back pain laterality, unspecified whether sciatica present] Onset: 5 Chronic Other nervous system disorders (1 source) Lesion of lateral popliteal nerve, right lower limb; Translations: [Peroneal neuropathy at knee, right] Onset: 5 Chronic Other nervous system disorders (1 source) Tarsal tunnel syndrome, right lower limb; Translations: [Tarsal tunnel syndrome of right side] Onset: 5 Chronic Other nervous system disorders (7 sources) Acute postoperative pain; Translations: [Other acute postprocedural pain] 10-23-2022 Episodic Other nervous system disorders (1 source) H/O: ear disorder; Translations: [Personal history of other diseases of the nervous system and sense organs] 05-07-2023 Episodic Other nutritional; endocrine; and metabolic disorders (1 source) Hypercalcemia; Translations: [Hypercalcemia] Chronic Other screening for suspected conditions (not mental disorders or infectious disease) (6 sources) Cancer cervix screening status; Translations: [Encounter for screening for malignant neoplasm of cervix] Onset: 5 Episodic Other skin disorders (1 source) Rash and other nonspecific skin eruption; Translations: [Rash and other nonspecific skin eruption] Onset: 5 Episodic Other upper respiratory disease (1 source) Chronic rhinitis; Translations: [Chronic rhinitis] Chronic Other upper respiratory disease (13 sources) Congestion of nasal sinus; Translations: [Nasal congestion] 05-21-2021 Episodic Other upper respiratory disease (13 sources) Respiratory tract congestion; Translations: [Nasal congestion] 10-18-2020 Episodic Other upper respiratory infections (1 source) Bacterial sinusitis; Translations: [Chronic sinusitis, unspecified] 05-07-2023 Chronic Other upper respiratory infections (17 sources) Upper respiratory infection; Translations: [Acute upper respiratory infection, unspecified] Episodic Otitis media and related conditions (2 sources) Disorder of left Eustachian tube; Translations: [Unspecified Eustachian tube disorder, left ear] Episodic Residual codes; unclassified (1 source) Other hypersomnia; Translations: [Excessive daytime sleepiness] Onset: 5 Chronic Residual codes; unclassified (13 sources) Generalized aches and pains; Translations: [Pain, unspecified] 05-21-2021 Episodic Residual codes; unclassified (1 source) Insomnia, unspecified; Translations: [Insomnia, unspecified type] Onset: 5 Episodic Screening and history of mental health and substance abuse codes (11 sources) H/O: depression; Translations: [Personal history of other mental and behavioral disorders] 06-13-2022 Episodic Skin and subcutaneous tissue infections (13 sources) Cellulitis; Translations: [Cellulitis, unspecified] 06-22-2021 Episodic Spondylosis; intervertebral disc disorders; other back problems (1 source) Degeneration of lumbar intervertebral disc; Translations: [Other intervertebral disc degeneration of lumbar region with discogenic back pain and] 12-27-2023 Chronic Sprains and strains (13 sources) Sprain of knee; Translations: [Sprain of unspecified site of left knee, initial encounter] 11-10-2016 Episodic Superficial injury; contusion (13 sources) Contusion of hip; Translations: [Contusion of unspecified hip, initial encounter] 03-14-2021 Episodic Unclassified (1 source) Low back pain, unspecified; Translations: [Low back pain, unspecified] Onset: 4 Unclassified (1 source) Chronic low back pain, unspecified back pain laterality, unspecified whether sciatica present; Translations: [Chronic low back pain, unspecified back pain laterality, unspecified whether sciatica present] Onset: 5 Unclassified (1 source) Obesity, Class I, BMI 30-34.9; Translations: [Obesity, Class I, BMI 30-34.9] Onset: 5 Unclassified (1 source) Other obesity not elsewhere classified; Translations: [Other obesity not elsewhere classified] Onset: 5 Viral infection (1 source) Disease caused by 2019-nCoV; Translations: [COVID-19] 04-04-2024 Episodic Past or Other Problems Problem Classification Problem Date Documented Da te Episodic/Chronic Abdominal pain (20 sources) Right upper quadrant pain; Translations: [Right upper quadrant pain] Onset: 09-03-2007 Resolved: 10-26-2007 10-26-2007 Episodic Conditions associated with dizziness or vertigo (20 sources) Dizziness; Translations: [Dizziness and giddiness] Onset: 01-28-2022 Episodic Mood disorders (20 sources) Bipolar disorder; Translations: [Bipolar disorder, unspecified] Onset: 11-10-2007 Resolved: 05-28-2022 08-11-2017 Chronic Other complications of (20 sources) Abnormal findings on screening of mother; Translations: [Unspecified abnormal findings on screening of mother] Onset: 06-06-2007 Resolved: 10-26-2007 10-26-2007 Episodic Other complications of (20 sources) Supervision of other high risk pregnancies, unspecified trimester; Translations: [Supervision of other high-risk ] Onset: 09-03-2007 Resolved: 10-26-2007 10-26-2007 Episodic Other non-traumatic joint disorders (20 sources) Pain in left knee; Translations: [Pain in joint, lower leg] Onset: 01-18-2017 01-18-2017 Episodic Other skin disorders (20 sources) Sebaceous cyst of skin; Translations: [Sebaceous cyst] Onset: 12-01-2007 12-01-2007 Episodic Spondylosis; intervertebral disc disorders; other back problems (13 sources) Acute low back pain; Translations: [Acute bilateral low back pain without sciatica] Onset: 12-05-2023 Episodic Unclassified (1 source) Patient encounter status 09-23-2024 Results Test Name Value Interpretation Reference Range Facility [facility] 12-11-2024 [facility] Telephone (NONA) LENA CHAPARRO ([id number]) 1980 F Date Time Provider Department 12/11/24 [facility] During your visit today, we recorded the following information about you: Katherine Lozano APRN.FOOD SERVICE CASHIER 12/11/2024 3:29 PM Signed Please fax office note and plastic referral to [facility]. Augustus Isbell LPN 12/11/2024 4:54 PM Signed Referral and OV note faxed to [facility]. Augustus Isbell LPN Allergies As of Date: 12/11/2024 Noted Allergy Reaction TIOCONAZOLE 01/30/2005 7 - Swelling Comments: Labial swelling Date Reviewed: 12/06/2024 Reviewed by: Patti Cam APRN.FOOD SERVICE CASHIER - Fully Assessed Reason for Visit: Orders [681] Prescriptions as of 12/11/2024 - cholecalciferol, Vitamin D3, (VITAMIN D3) 1,250 mcg (50,000 unit) cap capsule Take 1 capsule by mouth one time a week. - omeprazole (PRILOSEC) 40 mg capsule Take 1 capsule by mouth once daily. - cetirizine (ZYRTEC) 10 mg tablet Take 1 tablet by mouth once daily. - nystatin (NYSTOP) powder Apply 1 application to affected area four times daily. - pregabalin (LYRICA) 50 mg capsule Take [...] as directed. 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] 11/14/2024 Tarsal tunnel syndrome of right side [G57.51] 11/14/2024 Encounter Status:Closed by AUGUSTUS ISBELL on 12/11/24 [facility] CNOVon 12-06-2024 CNOV Office Visit (INTMWS ) LENA CHAPARRO ([id number]) 1980 Date Time Provider Department 12/06/24 12:20 PM PATTI CAM INTMWS During your visit today, we recorded the following information about you: Pulse Respiration Blood pressure Weight 72/minute 14/minute 124/80 87.9 kg Height 1.67 m Patti Cam, GENERAL PRODUCTION LABORER.FOOD SERVICE CASHIER 12/06/2024 1:29 PM Signed [facility] - NEW VISIT Recording using iBuildApp software for draft documentation of the visit was discussed with the patient/authorized fraud representative; all questions welcomed and answered. Patient/authorized fraud representative agreed to proceed REASON OF VISIT: The patient is a 44-year-old female with obesity and hypercholesterolemia, presenting for initiation of a multidisciplinary 18-month weight management program. REFERRING PHYSICIAN: Katherine Lozano APRN HISTORY OF PRESENT ILLNESS: The patient is a 44-year-old female with a history of hyperlipidemia, presenting for enrollment in a weight management program. Weight Management: - Expresses desire to lose weight and feel better about herself. - Reports difficulty maintaining previous dietary changes due to cost and seasonal availability of fruits. - Craves chips and sweets, contributing to weight gain. - Denies previous use of weight loss medications or surgeries. - Reports binge eating and late-night eating due to second shift work schedule. - Breakfast around 11:30-12:00, lunch around 16:00, dinner around 22:00-23:00. - Reports eating junk food when not cooking due to convenience. - Denies current exercise due to foot pain. - Reports back pain and foot issues contributing to weight gain. - Interested in breast reduction surgery due to back pain. - has fatty liver disease, leading to previous dietary changes which helped her lose weight but was unable to sustain - Smokes approximately one pack of cigarettes per day. Sleep Disturbances: - Reports difficulty falling and staying asleep, possibly due to back pain. - Experiences headaches upon waking. - Snores loudly and occasionally wakes herself up. reports she stops breathing during sleep. - Wakes up feeling tired and exhausted throughout the day. - has a CPAP machine, which she has tried and found comfortable. WEIGHT HISTORY AND TRAJECTORY: Previous attempt for weight loss: self directed dieting, Pertinent medications causing weight gain: Lyrica Pertinent medications causing weight loss: NA Prior Medications for weight Loss, side-effects, and/or contra-indications: NA Lifestyle Factors Diet and Eating behaviors Sleep -- sleep initiation: yes -- sleep maintenance: yes -- hours of sleep: 4 or less sometimes -- shift work associated weight gain: yes, works 2nd shift which affects what time of day she eats STOP BANG Questionnaire 1. Snoring Do you snore loudly (louder than talking or loud enough to be heard through closed doors)? YES 2. Tired Do you often feel tired, fatigued, or sleepy during daytime? YES 3. Observed Has anyone observed you stop breathing during your sleep? YES 4. Blood Pressure Do you have or are you being treated for high blood pressure? NO 5. BMI BMI more than 35 kg/m2? NO 6. Age Age over 50 yr old? NO 7. Neck circumference Neck circumference greater than 40 cm? NO 8. Gender Gender male? NO * Neck circumference is measured by staff High risk of ROSI: answering yes to three or more items Low risk of ROSI: answering yes to less than three items Stress -- multiple Social History Alcohol: no Smoking: yes Recreational Drugs: no Patient Entered Data 08/16/2020 03/25/2023 04/04/2024 PROMIS 10 Health, in general Fair Fair Good Quality of life, in general Fair Good Very good Physical health, in general Fair Good Very good Mental health, in general Good Poor Good Social activities satisfaction Good Good Excellent Performing ADL's Moderately Moderately Mostly Social role satisfaction Good Poor Excellent Pain, on average 6 3 3 Fatigue, on average Moderate Moderate Mild Emotional problems Often Often Often PHYSICAL Score 37.4 (Fair) 42.3 (Good) 50.8 (Very Good) MENTAL Score 38.8 (Fair) 36.3 (Fair) 48.3 (Very Good) MEDICATIONS: Current Outpatient Medications on File Prior to Visit Medication Sig omeprazole (PRILOSEC) 40 mg capsule Take 1 capsule by mouth once daily. nystatin (NYSTOP) powder Apply 1 application to affected area four times daily. pregabalin (LYRICA) 50 mg capsule Take 1 [...] hours (8 yrs) 52 mg IUD 1 E (more content not included)... Normal [facility] SCREENING W TOMOon 11-22 [facility]SEL[facility] SCREENING W LAUREANO * * *Final Report* * * DATE OF EXAM: Nov 22 2024 2:02PM [facility] 0582 - [facility] SCREENING W LAUREANO / PROCEDURE REASON: Encounter for screening mammogram for breast cancer * * * * Physician Interpretation * * * * RESULT: [address] [address] [place] [address] #[id number] - [facility] SCREENING W LAUREANO HISTORY: 44 year-old patient presents for screening. Patient is asymptomatic in both breasts. Patient states no personal history of breast cancer. COMPARISON STUDIES: The present examination has been compared to prior imaging studies dated 07/15/2022 (mammogram) and 10/13/2022 (mammogram). MAMMOGRAM TECHNIQUE: The study was acquired using full field digital technology and interpreted from soft copy. Digital Breast Tomosynthesis (DBT) images were obtained and used to assist in the interpretation of this examination. MAMMOGRAM FINDINGS: There are scattered areas of fibroglandular density. No suspicious masses, calcifications or other abnormalities are seen in either breast. There are no significant interval changes. IMPRESSION: There is no mammographic evidence of malignancy in either breast. Routine screening mammogram is recommended. Annual mammogram will be due in 1 year. BI-RADS Category 1: Negative RISK: Based on the Tyrer-Cuzick (TC) risk assessment model, this patient has a 5.7% lifetime risk of developing breast cancer, meaning they are at average risk for developing breast cancer. However, this is only an estimate based on available history provided on the patient's questionnaire. We encourage all patients to talk with their providers about these results, further recommendations for managing breast health, and appropriate supplemental screening options if the patient has dense breast tissue. Interpreting Radiologist: Sully Wills M.D. Electronically signed on: 11/25/2024 Engineering Inspector: CHANA Transcribe Date/Time: Nov 22 2024 1:49P Dictated by: SULLY WILLS MD This examination was interpreted and the report reviewed and electronically signed by: SULLY WILLS MD on Nov 25 2024 11:03AM EST [id number] Normal [facility] 25([facility])D3 [facility] 25-hydroxyvitamin D3 [Mass/Vol] 12.8 ng/mL Low 31.0-80.0 [facility] Comment on above: Order Comment: Speci men Type: BLOOD SPECIMENOrdering Facility: [facility] Address: [address] [place] [address] Performed By: #### 1 989-3 ####[facility] LABCLIA [id number] [place] [id number] [place] CBC W Auto Differential pane l (Bld)on 11-15-2024 Basophils (Bld) [#/Vol] 0.07 10*3/uL Normal <0.11 [facility] Comment on above: Order Comment: Speci men Type: BLOOD SPECIMENOrdering Facility: [facility] Address: [address] [place] [address] Performed By: #### 5 7021-8 ####[facility] LABCLIA [id number] [place] [address] [place] Basophils/100 WBC (Bld) 0.6 % Normal [facility] Comment on above: Order Comment: Speci men Type: BLOOD SPECIMENOrdering Facility: [facility] Address: [address] [place] [address] Performed By: #### 5 7021-8 ####[facility] LABCLIA [id number] [place] [address] [place] Differential cell count method Nom (Bld) Auto Normal [facility] Comment on above: Order Comment: Speci men Type: BLOOD SPECIMENOrdering Facility: [facility] Address: [address] [place] [address] Performed By: #### 5 7021-8 ####[facility] LABCLIA [id number] [place] [address] [place] Eosinophils (Bld) [#/Vol] 0.28 10*3/uL Normal <0.46 [facility] Comment on above: Order Comment: Speci men Type: BLOOD SPECIMENOrdering Facility: [facility] Address: [address] [place] [address] Performed By: #### 5 7021-8 ####[facility] LABCLIA [id number] [place] [address] [place] Eosinophils/100 WBC (Bld) 2.4 % Normal [facility] Comment on above: Order Comment: Speci men Type: BLOOD SPECIMENOrdering Facility: [facility] Address: [address] [place] [address] Performed By: #### 5 7021-8 ####[facility] LABCLIA [id number] [place] [address] [place] Erythrocyte distribution width (RBC) [Ratio] 13.7 % Normal 11.5-15.0 [facility] Comment on above: Order Comment: Speci men Type: BLOOD SPECIMENOrdering Facility: [facility] Address: [address] [place] [address] Performed By: #### 5 7021-8 ####[facility] LABCLIA [id number] [place] [address] [place] Hematocrit (Bld) [Volume fraction] 44.5 % Normal 36.0-46.0 [facility] Comment on above: Order Comment: Speci men Type: BLOOD SPECIMENOrdering Facility: [facility] Address: [address] [place] [address] Performed By: #### 5 7021-8 ####[facility] LABCLIA [id number] [place] [address] [place] Hemoglobin (Bld) [Mass/Vol] 15.2 g/dL Normal 11.5-15.5 [facility] Comment on above: Order Comment: Speci men Type: BLOOD SPECIMENOrdering Facility: [facility] Address: [address] [place] [address] Performed By: #### 5 7021-8 ####[facility] LABIA [id number] [place] [address] [place] Immature granulocytes (Bld) [#/Vol] 0.05 10*3/uL Normal <0.10 [facility] Comment on above: Order Comment: Speci men Type: BLOOD SPECIMENOrdering Facility: [facility] Address: [address] [place] [address] Performed By: #### 5 7021-8 ####[facility] LABCLIA [id number] [place] [address] [place] Immature granulocytes/100 WBC (Bld) 0.4 % Normal [facility] Comment on above: Order Comment: Speci men Type: BLOOD SPECIMENOrdering Facility: [facility] Address: [address] [place] [address] Performed By: #### 5 7021-8 ####[facility] LABCLIA [id number] [place] [address] [place] Lymphocytes (Bld) [#/Vol] 4.00 10*3/uL Normal 1.00-4.00 [facility] Comment on above: Order Comment: Speci men Type: BLOOD SPECIMENOrdering Facility: [facility] Address: [address] [place] [address] Performed By: #### 5 7021-8 ####[facility] LABCLIA [id number] [place] [address] [place] Lymphocytes/100 WBC (Bld) 34.5 % Normal [facility] Comment on above: Order Comment: Speci men Type: BLOOD SPECIMENOrdering Facility: [facility] Address: [address] [place] [address] Performed By: #### 5 7021-8 ####[facility] LABCLIA [id number] [place] [address] [place] MCH (RBC) [Entitic mass] 30.2 pg Normal 26.0-34.0 [facility] Comment on above: Order Comment: Speci men Type: BLOOD SPECIMENOrdering Facility: [facility] Address: [address] [place] [address] Performed By: #### 5 7021-8 ####[facility] LABCLIA [id number] [place] [address] [place] MCHC (RBC) [Mass/Vol] 34.2 g/dL Normal 30.5-36.0 [facility] Comment on above: Order Comment: Speci men Type: BLOOD SPECIMENOrdering Facility: [facility] Address: [address] [place] [address] Performed By: #### 5 7021-8 ####[facility] LABCLIA [id number] [place] [address] [place] MCV (RBC) [Entitic vol] 88.5 fL Normal 80.0-100.0 [facility] Comment on above: Order Comment: Speci men Type: BLOOD SPECIMENOrdering Facility: [facility] Address: [address] [place] [address] Performed By: #### 5 7021-8 ####[facility] LABCLIA [id number] [address] [address] [place] Monocytes (Bld) [#/Vol] 0.70 10*3/uL Normal <0.87 [facility] Comment on above: Order Comment: Speci men Type: BLOOD SPECIMENOrdering Facility: [facility] Address: [address] [place] [address] Performed By: #### 5 7021-8 ####[facility] LABCLIA [id number] [place] [address] [place] Monocytes/100 WBC (Bld) 6.0 % Normal [facility] Comment on above: Order Comment: Speci men Type: BLOOD SPECIMENOrdering Facility: [facility] Address: [address] [place] [address] Performed By: #### 5 7021-8 ####[facility] LABCLIA [id number] [place] [address] [place] Neutrophils (Bld) [#/Vol] 6.48 10*3/uL Normal 1.45-7.50 [facility] Comment on above: Order Comment: Speci men Type: BLOOD SPECIMENOrdering Facility: [facility] Address: [address] [place] [address] Performed By: #### 5 7021-8 ####[facility] LABCLIA [id number] [place] [id number] [place] Neutrophils/100 WBC (Bld) 56.1 % Normal [facility] Comment on above: Order Comment: Speci men Type: BLOOD SPECIMENOrdering Facility: [facility] Address: [address] [place] [address] Performed By: #### 5 7021-8 ####[facility] LABCLIA [id number] [address] [address] [place] Nucleated RBC (Bld) [#/Vol] 10*3/uL Normal <0.01 [facility] Comment on above: Order Comment: Speci men Type: BLOOD SPECIMENOrdering Facility: [facility] Address: [address] [place] [address] Performed By: #### 5 7021-8 ####[facility] LABCLIA [id number] [address], [place] [address] [place] Nucleated RBC/100 WBC (Bld) [Ratio] 0.0 /100 WBC Normal [facility] Comment on above: Order Comment: Speci men Type: BLOOD SPECIMENOrdering Facility: [facility] Address: [address] [place] [address] Performed By: #### 5 7021-8 ####[facility] LABIA [id number] [address], [place] [address] [place] Platelet mean volume (Bld) [Entitic vol] 11.0 fL Normal 9.0-12.7 [facility] Comment on above: Order Comment: Speci men Type: BLOOD SPECIMENOrdering Facility: [facility] Address: [address] [place] [address] Performed By: #### 5 7021-8 ####[facility] LABIA [id number] [place] [address] [place] Platelets (Bld) [#/Vol] 393 10*3/uL Normal 150-400 [facility] Comment on above: Order Comment: Speci men Type: BLOOD SPECIMENOrdering Facility: [facility] Address: [address] [place] [address] Performed By: #### 5 7021-8 ####[facility] LABCLIA [id number] [address] [place] [address] [place] RBC (Bld) [#/Vol] 5.03 10*6/uL Normal 3.90-5.20 [facility] Comment on above: Order Comment: Speci men Type: BLOOD SPECIMENOrdering Facility: [facility] Address: [address] [place] [address] Performed By: #### 5 7021-8 ####[facility] LABCLIA [id number] [facility] [id number], [place] [address] [place] WBC (Bld) [#/Vol] 11.58 10*3/uL High 3.70-11.00 [facility] Comment on above: Order Comment: Speci men Type: BLOOD SPECIMENOrdering Facility: [facility] Address: [address] [place] [address] Performed By: #### 5 7021-8 ####[facility] LABCLIA [id number] [facility] [address] [place] [address] [place] Comprehensive metabolic 2000 panelon 11-15-2024 Albumin [Mass/Vol] 3.9 g/dL Normal 3.9-4.9 [facility] Comment on above: Order Comment: Speci men Type: BLOOD SPECIMENOrdering Facility: [facility] Address: [address] [place] [address] Performed By: #### 2 4331-1, 84060-7, ####[facility] LABCLIA [id number] [facility] [address] [place] [address] [place] ALP [Catalytic activity/Vol] 103 U/L Normal 34-123 [facility] Comment on above: Order Comment: Speci men Type: BLOOD SPECIMENOrdering Facility: [facility] Address: [address] [place] [address] Performed By: #### 2 4331-1, , ####[facility] LABCLIA [id number] [facility] [id number], [place] [address] [place] ALT [Catalytic activity/Vol] 35 U/L Normal 7-38 [facility] Comment on above: Order Comment: Speci men Type: BLOOD SPECIMENOrdering Facility: [facility] Address: [address] [place] [address] Performed By: #### 2 4331-1, , ####[facility] LABCLIA [id number] [address] [address] [place] Anion gap [Moles/Vol] 12 mmol/L Normal 8-15 [facility] Comment on above: Order Comment: Speci men Type: BLOOD SPECIMENOrdering Facility: [facility] Address: [address] [place], [place] [address] Performed By: #### 2 4331-1, , ####[facility] LABCLIA [id number] [address] [address] [place] AST [Catalytic activity/Vol] 28 U/L Normal 13-35 [facility] Comment on above: Order Comment: Speci men Type: BLOOD SPECIMENOrdering Facility: [facility] Address: [address] [place], [place] [address] Performed By: #### 2 4331-1, , ####[facility] LABIA [id number] [address] [address] [place] Bilirubin [Mass/Vol] 0.2 mg/dL Normal 0.2-1.3 [facility] Comment on above: Order Comment: Speci men Type: BLOOD SPECIMENOrdering Facility: [facility] Address: [address] [place] [address] Performed By: #### 2 4331-1, , ####[facility] LABIA [id number] [address] [address] [place] Calcium [Mass/Vol] 9.5 mg/dL Normal 8.5-10.2 [facility] Comment on above: Order Comment: Speci men Type: BLOOD SPECIMENOrdering Facility: [facility] Address: [address] [place] [address] Performed By: #### 2 4331-1, 00294-7, ####[facility] LABCLIA [id number] [place] [id number] [place] Chloride [Moles/Vol] 105 mmol/L Normal 98-107 [facility] Comment on above: Order Comment: Speci men Type: BLOOD SPECIMENOrdering Facility: [facility] Address: [address] [place] [address] Performed By: #### 2 4331-1, 06614-8, ####[facility] LABCLIA [id number] [place] [address] [place] CO2 [Moles/Vol] 21 mmol/L Low 22-30 [facility] Comment on above: Order Comment: Speci men Type: BLOOD SPECIMENOrdering Facility: [facility] Address: [address] [place] [address] Performed By: #### 2 4331-1, 15706-3, ####[facility] LABIA [id number] [place] [address] [place] Creatinine [Mass/Vol] 0.59 mg/dL Normal 0.58-0.96 [facility] Comment on above: Order Comment: Speci men Type: BLOOD SPECIMENOrdering Facility: [facility] Address: [address] [place] [address] Performed By: #### 2 4331-1, 74013-0, ####[facility] LABIA [id number] [place] [id number] [place] eGFRcr SerPlBld CKD-EPI 2020 116 mL/min/1.73m??? Normal >=60 [facility] Comment on above: Order Comment: Speci men Type: BLOOD SPECIMENOrdering Facility: [facility] Address: [address], [place] [address] Result Comment: [place] mated Glomerular Filtration Rate (eGFR) is calculated using the 2020 CKD-EPI creatinine equation. This equation utilizes serum creatinine, sex, and age as parameters. The creatinine assay has traceable calibration to isotope dilution-mass spectrometry. Refer to KDIGO guidelines for clinical interpretation. In patients with unstable renal function, e.g. those with acute kidney injury, the eGFR may not accurately reflect actual GFR. Performed By: #### 2 4331-1, 62830-2, ####[facility] LABCLIA [id number] [address] [address] [place] Glucose [Mass/Vol] 91 mg/dL Normal 74-99 [facility] Comment on above: Order Comment: Dev lau Type: BLOOD SPECIMENOrdering Facility: [facility] Address: [address] [place] [address] Result Comment: The [place] [employer] (ADA) provides guidance for cutoff values for fasting glucose and random glucose. The ADA defines fasting as no caloric intake for at least 8 hours. Fasting plasma glucose results between 100 to 125 [...] Standards of Medical Care in Diabetes 2016, [place] [employer]. Diabetes Care. 2016.39(Suppl 1). Performed By: #### 2 4331-1, , ####[facility] LABIA [id number] [address] [address] [place] Potassium [Moles/Vol] 4.5 mmol/L Normal 3.7-5.1 [facility] Comment on above: Order Comment: Dev lau Type: BLOOD SPECIMENOrdering Facility: [facility] Address: [address] [place] [address] Performed By: #### 2 4331-1, , ####[facility] LABCLIA [id number] [address] [address] [place] Protein [Mass/Vol] 6.7 g/dL Normal 6.3-8.0 [facility] Comment on above: Order Comment: Speci men Type: BLOOD SPECIMENOrdering Facility: [facility] Address: [address] [place] [address] Performed By: #### 2 4331-1, , ####[facility] LABIA [id number] [address] [address] [place] Sodium [Moles/Vol] 138 mmol/L Normal 136-144 [facility] Comment on above: Order Comment: Speci men Type: BLOOD SPECIMENOrdering Facility: [facility] Address: [address] [place] [address] Performed By: #### 2 4331-1, , ####[facility] LABIA [id number] [address] [address] [place] Urea nitrogen [Mass/Vol] 11 mg/dL Normal 7-21 [facility] Comment on above: Order Comment: Speci men Type: BLOOD SPECIMENOrdering Facility: [facility] Address: [address] [place] [address] Performed By: #### 2 4331-1, , ####[facility] LABIA [id number] [address] [address] [place] Lipid 1996 panelon 5 Cholesterol [Mass/Vol] 260 mg/dL High <200 [facility] Comment on above: Order Comment: Speci men Type: BLOOD SPECIMENOrdering Facility: [facility] Address: [address] [place], [place] [address] Result Comment: <200 mg/dL, Desirable 200-239 mg/dL, Borderline high >239 mg/dL, High Performed By: #### 2 4331-1, , ####[facility] LABCLIA [id number] [address] [address] [place] Cholesterol in HDL [Mass/Vol] 31 mg/dL Low >39 [facility] Comment on above: Order Comment: Speci men Type: BLOOD SPECIMENOrdering Facility: [facility] Address: [address] [place] [address] Result Comment: 40-5 9 mg/dL, Acceptable >59 mg/dL, High: Negative risk factor for coronary heart disease <40 mg/dL, Low: Positive risk factor for coronary heart disease Performed By: #### 2 4331-1, , ####[facility] LABIA [id number] [address] STATES OF [facility] Cholesterol in LDL [Mass/Vol] 142 mg/dL High <100 [facility] Comment on above: Order Comment: Speci men Type: BLOOD SPECIMENOrdering Facility: [facility] Address: [address] [place] [address] Result Comment: <100 mg/dL, Optimal 100-129 mg/dL, Near optimal/above optimal 130-159 mg/dL, Borderline high 160-189 mg/dL, High >189 mg/dL, Very high Secondary prevention optimal LDL Cholesterol levels are recommended to be <70 mg/dL LDL cholesterol is calculated using the Mckeon-NIH equation. Performed By: #### 2 4331-1, , ####[facility] LAB[facility] [id number] [address] [address] [place] Cholesterol in LDL/Cholesterol in HDL [Mass ratio] 4.58 {ratio} High <2.54 [facility] Comment on above: Order Comment: Speci men Type: BLOOD SPECIMENOrdering Facility: [facility] Address: [address] [place] [address] Result Comment: Refe rence: 1. National Cholesterol Education Program ATP III Guideline At-A-Glance Quick Desk Reference: National Heart, Lung, and Blood [place]. National Institutes of Health. 2001: NIH Publication No. 01-3305. 2. An International Atherosclerosis Society position paper: global recommendations for the management of dyslipidemia: executive summary, Atherosclerosis. 2014: 232(2):410-413. Performed By: #### 2 4331-1, , ####[facility] LABCLIA [id number] [address] [place] [address] [place] Cholesterol in VLDL [Mass/Vol] 89 mg/dL High <30 [facility] Comment on above: Order Comment: Speci men Type: BLOOD SPECIMENOrdering Facility: [facility] Address: [address] [place] [address] Performed By: #### 2 4331-1, , ####[facility] LABCLIA [id number] [address] [place] [address] [place] Cholesterol non HDL [Mass/Vol] 229 mg/dL High <130 [facility] Comment on above: Order Comment: Speci men Type: BLOOD SPECIMENOrdering Facility: [facility] Address: [address] [place] [address] Result Comment: <130 mg/dL, Optimal 130-159 mg/dL, Near optimal/above optimal 160-189 mg/dL, Borderline high 190-219 mg/dL, High >219 mg/dL, Very high Secondary prevention optimal non HDL Cholesterol levels are recommended to be <100 mg/dL Performed By: #### 2 4331-1, , ####[facility] LABCLIA [id number] [facility] [address] [place] [address] [place] Cholesterol.total/Ch olesterol in HDL [Mass ratio] 8.39 {ratio} High <5.10 [facility] Comment on above: Order Comment: Speci men Type: BLOOD SPECIMENOrdering Facility: [facility] Address: [address] [address] Performed By: #### 2 4331-1, , ####[facility] LABCLIA [id number] [place] [id number] [place] FASTING TIME 12 hrs Normal [facility] Comment on above: Order Comment: Speci men Type: BLOOD SPECIMENOrdering Facility: [facility] Address: [address] [place] [address] Performed By: #### 2 4331-1, 64718-1, ####[facility] LABCLIA [id number] [place] [address] [place] Triglyceride [Mass/Vol] 467 mg/dL High <150 [facility] Comment on above: Order Comment: Speci men Type: BLOOD SPECIMENOrdering Facility: [facility] Address: [address] [place] [address] Result Comment: <150 mg/dL, Normal 150-199 mg/dL, Borderline high 200-499 mg/dL, High >499 mg/dL, Very high Performed By: #### 2 4331-1, 79558-4, ####[facility] LABIA [id number] [place] [address] [place] Magnesium SerPl-mCncon 11-15 Magnesium [Mass/Vol] 2.2 mg/dL Normal 1.7-2.3 [facility] Comment on above: Order Comment: Speci men Type: BLOOD SPECIMENOrdering Facility: [facility] Address: [address] [place] [address] Performed By: #### 2 4331-1, 04900-7, ####[facility] LABIA [id number] [place] [id number] [place] CNOVon 11-14-2024 CNOV Office Visit (FAMPWS ) LENA CHAPARRO ([id number]) 1980 F Date Time Provider Department 11/14/24 2:00 PM KATHERINE LOZANO During your visit today, we recorded the following information about you: Pulse Respiration Blood pressure Weight 108/minute 16/minute 118/82 87.1 kg Height 1.67 m Katherine Lozano APRN.CNP 11/14/2024 2:36 PM Signed Schedule mammogram. Schedule w/ obesity provider. Get fasting labwork. Continue same medications. Health Promotion: - Eat healthy -- go to [employer] to get started - Have a yearly physical - Mammogram yearly after age 40 - Get at least 30 minutes of physical activity daily - Get at least 7 to 8 hours of sleep each night - Reach and maintain a healthy weight - Get help to quit or don't start smoking - Limit alcohol use to one drink or less - Do not use illegal drugs or misuse prescription drugs - Wear a helmet when riding a bike and wear protective gear for sports - Wear a seatbelt in cars and not text and drive - Wear sunscreen Katherine Lozano APRN.CNP 11/14/2024 6:22 PM Signed This is a 44 year old female who presents today with: The patient is a 44-year-old female with GERD, depression/anxiety, right peroneal neuropathy, and right ankle tarsal tunnel syndrome, presenting for an annual physical. HISTORY OF PRESENT ILLNESS: Physical Exam: - Missed last two physical exams appts. Anxiety and Depression: - Well-managed with Prozac 30 mg daily. - Noticed improvement in symptoms within two weeks of starting Prozac. - Previously managed by psychiatrist, currently needs to establish care with a new provider. GERD: - Managed with Prilosec; experiences heartburn if medication is missed. - Reports occasional heartburn after taking Prilosec at night, causing discomfort and difficulty sleeping. - Denies heartburn during the day. Weight Management: - Desires to lose weight but unsure how to diet and finds healthy food expensive. - Limited ability to exercise due to foot pain. - Interested in seeing a dietitian for guidance. PAST MEDICAL HISTORY: PAST MEDICAL HISTORY Diagnosis [...] Take 1 tablet by mouth once daily. nystatin (NYSTOP) powder Apply 1 application to affected area four times daily. pregabalin (LYRICA) 50 mg capsule Take 1 [...] Hypertension Maternal Grandmother Lipids Maternal Grandmother SOCIAL HISTORY[1] REVIEW OF SYSTEMS Constitutional: (-) unintentional weight loss, (-) weakness, (-) fatigue Head: (-) headaches Eyes: (-) visual changes Ears/Nose/Mouth/Throat: (-) hearing changes, (-) dysphagia Neck: (-) neck masses Cardiovascular: (-) chest pain, (-) palpitations, (-) peripheral edema Respiratory: (-) dyspnea Gastrointestinal: (+) heartburn, (+) diarrhea, (+) constipation, (+) hematochezia (hemorrhoidal), (-) melena Genitourinary: (-) dysuria Musculoskeletal: (+) joint pain, (+) muscle pain Skin: (+) dry skin, (+) pruritus right thumb. (more content not included)... Normal [facility] 11-14-2024 [facility] Telephone (FAMWS) LENA CHAPARRO ([id number]) 1980 F Date Time Provider Department 11/14/[address] [facility] During your visit today, we recorded the following information about you: Josue Andrew LPN 11/14/2024 12:41 PM Signed No show letter #2 printed and mailed to patient. Allergies As of Date: 11/14/2024 Noted Allergy Reaction TIOCONAZOLE 01/30/2005 7 - Swelling Comments: Labial swelling Date Reviewed: 05/28/2024 Reviewed by: Conchis Santillan LPN - Fully Assessed Reason for Visit: Letter [264] Cmt: No show #2 Prescriptions as of 11/14/2024 - omeprazole (PRILOSEC) 40 mg capsule Take 1 capsule by mouth once daily. - cetirizine (ZYRTEC) 10 mg tablet Take 1 tablet by mouth once daily. - nystatin (NYSTOP) [...] as directed. Problem List As Of Date 11/14/2024 Noted Resolved ABNL FINDINGS ON SCREEN [O28.9] [...] [R42] 01/28/2022 Anxiety with depression [F41.8] 05/28/2022 Letter Text Encounter Status:Closed by JOSUE ANDREW [facility]14[facility] Telephone ([facility]) LENA CHAPARRO ([id number]) 1980 F Date Time Provider Department 11/01/[address] [facility] During your visit today, we recorded the following information about you: Josue Andrew LPN 11/01/2024 11:15 AM Signed No Show letter #1 mailed to patient. Allergies As of Date: 11/01/2024 Noted Allergy Reaction TIOCONAZOLE 01/30/2005 7 - Swelling Comments: Labial swelling Date Reviewed: 05/28/2024 Reviewed by: Conchis Santillan LPN - Fully Assessed Reason for Visit: Letter [264] Cmt: No Show #1 Prescriptions as of 11/01/2024 - omeprazole (PRILOSEC) 40 mg capsule Take 1 capsule by mouth once daily. - cetirizine (ZYRTEC) 10 mg tablet Take 1 tablet by mouth once daily. - nystatin (NYSTOP) [...] as directed. Problem List As Of Date 11/01/2024 Noted Resolved ABNL FINDINGS ON SCREEN [O28.9] [...] [R42] 01/28/2022 Anxiety with depression [F41.8] 05/28/2022 Letter Text Encounter Status:Closed by JOSUE ANDREW on 11/01/24 Normal [facility] Emergency Department Summary on 09-04-2024 Emergency Department Summary [facility] Medical Records Department [address] [place] [address] Emergency Department Summary 09/04/24 MR#: [id number] Acct: [id number] Name: LENA CHAPARRO Rep #: [id number] : 1980 44 From: Logan Yañez MD PCP: Dr. Wilver Jones MD Status:REG ER Location: ED HPI History of Present Illness Chief Complaint: Other, Pain/Inj Detail of Chief Complaint: rash Informant: patient Narrative Narrative: 44-year-old female presents with an inframammary itchy, burning rash for 3 days. She states she has used nystatin powder on this before when it has occurred, as it has been diagnosed as a yeast infection in the past, she states usually clears up within 2 days of doing that. However since this has been going on for 3 and was bothering her tonight, she presents for evaluation. She denies any systemic symptoms. She denies being a diabetic. [facility] Medical History Edentulous Anxiety Arthritis High cholesterol Gastric reflux Shortness of breath on exertion Smoker History of edema History of stress test History of cyst of breast Vertigo Encounter for screening for COVID-19 Home Medications ???Medication ???Instructions ???Recorded ???Last Taken ???Type cetirizine 10 mg tablet 10 mg PO DAILY 06/13/22 10/23/22 H istory fluoxetine 10 mg capsule 10 mg PO DAILY 05/02/23 Unknown Hi story fluoxetine 20 mg capsule 20 mg PO DAILY 05/02/23 Unknown Hi story hydroxyzine pamoate 25 mg capsule 25 mg PO TID 05/02/23 Unknown His tory diclofenac potassium 50 mg tablet 50 mg PO BID 12/27/23 Unknown His tory omeprazole 40 mg capsule,delayed 40 mg PO QDAY 12/27/23 Unknown His tory release pregabalin 50 mg capsule 50 mg PO TID 12/27/23 Unknown Hist ory hydroxyzine pamoate 50 mg capsule 50 mg PO BID 09/04/24 Unknown His tory nystatin 100,000 unit/gram topical 1 applic topical 4X/DAY 09/04/24 Unknown History powder nystatin-triamcinolone 100,000 1 applic topical BID 1 week #15 Unknown Rx unit/g-0.1 % topical cream grams Allergy/AdvReac Type Severity Reaction Status Date / Time tioconazole (From Vagistat-1) Allergy Swelling Verified 09/04/24 04:43 Family History Other Angina at rest Bipolar 1 disorder Depression Heart disease Surgical History H/O foot surgery History of hernia surgery History of decompression of ulnar nerve History of carpal tunnel release of both wrists Social History Smoking Status: Current every day smoker tobacco type: cigarettes alcohol intake: never substance use type: does not use ROS ROS ED Constitutional Constitutional ED: Denies chills or fever(s) Eyes Eyes: Denies change in vision or diplopia ENT ENT ED: Denies rhinorrhea or sore throat Cardiovascular Cardiovascular: Denies chest pain or palpitations Respiratory/Chest Respiratory/Chest: Denies cough or dyspnea Gastrointestinal Gastrointestinal: Denies abdominal pain, diarrhea, nausea or vomiting Genitourinary Genitourinary ED: Denies dysuria or hematuria Musculoskeletal Musculoskeletal: Denies back pain or neck pain Integumentary Reports rash; Denies abscess Neurologic Neurologic: Denies headache(s), paresthesias or weakness Psychiatric Psychiatric: Denies suicidal thoughts EXAM Physical Exam Const Vital Signs: 09/04/24 04:44 09/04/24 04:44 Temperature 98.1 F Temperature Source Oral Pulse Rate 88 Respiratory Rate 18 Respiratory Effort Normal Respiratory Pattern Normal Blood Pressure 156/94 H Blood Pressure Mean 114 Pulse Ox 99 Oxygen Delivery Method Room Air Positive well nourished, well developed and obese General Appearance ED: well developed and NAD Nutritional Appearance: obese Eyes PERRL and EOMs intact bilaterally Neck full ROM and supple Chest Wall Chest Narrative: Inframammary bilateral intertriginous erythematous rash, it is dry not moist, it is blanching erythema, there is no scaling or scabbing, no petechia no bullae, no satellite lesions. Mildly tender patient states it [place] when we touch it. Resp normal respiratory effort Neuro oriented x3, CN's II-XII intact bilaterally and no sensory deficits noted Sensorium / Orientation: awake and alert Motor Exam: strength 5/5 throughout MDM MDM MDM Narrative Medical decision making narrative: Possible this is cutaneous candidiasis intertriginous below her breast, however does not have that classic appearance. May be some other type of heat rash, contact dermatitis, or it could be fungal. I am prescribing her nystatin/triamcinolone cream to try and advise (more content not included)... 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 seen at [facility] on day #1, negative for strep only. pt feels she is worsening, denies fever. [facility] Medical History (Updated 06/04/24 @ 11:44 by Temo Goss FEED MILLER, FEED MILLER-C) Edentulous Anxiety Arthritis High cholesterol Gastric reflux [...] able to (more content not included)... Normal [facility] 05-28-2024 [facility] Office Visit (UCWSTR ) LENA CHAPARRO ([id number]) 1980 F Date Time Provider Department 05/28/24 2:45 PM [facility] During your visit today, we recorded the following information about you: Temperature Pulse Respiration Blood pressure 97.2 degrees 94/minute 22/minute 122/85 Weight Last Period 85 kg 08/26/22 Paul Greenwood, PA 05/28/2024 3:33 PM Signed [facility] [...] fatigue. No fevers. Has not taken anything [id number] for symptoms. No other complaint PAST MEDICAL [...] ICD9: 462 (more content not included)... Normal [facility] Cerumen Removalon 05-28-2024 Paul Greenwood PA 05/28/2024 3:33 PM Cerumen Removal Performed by: Paul Greenwood PA Authorized by: Paul Greenwood PA Informed Consent Consent Obtained: Verbal [place] Protocol A moment to CARE was completed. [...] no immediate complications Comments: Completed by EDGAR Santillan SIGN OUT No specimen collected. All instruments, equipment, possible retained foreign bodies accounted for. No post-procedure POC communication to the patient or surrogate applicable. No post-procedure POC communication to the patient's multidisciplinary team (including the bedside nurse for hospitalized patients) applicable. [facility] STREP A MOLECULAR (POC)on Procedural Control Valid [facility] Strep A (POCT) Negative Negative [facility] L/S Spine Bending Flex/Lyerly 12-27-2023 L/S Spine Bending Flex/Ext [facility] [address] [place] [address] L/S Spine Bending Flex/Ext MR#: [id number] Acct: [id number] Name: LENA CHAPARRO Rep #: [id number] : 1980 F 43 From: Luis Angel Ken MD PCP: Dr. Wilver Jones MD Status: DEP AMB Study: L/S Spine Bending Flex/Ext Date of Exam: 12/26 Exam# [id number] Ordering Dr: Lori Willard :[id number] STUDY: X-RAY - LUMBAR SPINE REASON FOR [...] JOSE DANIEL Casey; Dr. Wilver Jones MD Engineering Inspector: Signed Normal [facility] Orthopedic Visit Reporton Orthopedic Visit Report [facility] [address] [place] [address] OFFICE VISIT Date of Service: 12/27/23 MR#: [id number] Acct: [id number] Name: LENA CHAPARRO Rep #: [id number] : 1980 Provider: Dr. Hamzah Nicolas MD Age/Sex: 43/F Location: [facility] Status: Signed Intake Vital Signs 05/02/23 09:12 [...] slight short term relief. 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 Pain interferes with job and limits type [...] and reviewed (more content not included)... Normal [facility] Spine Lumbar (Routine)on Spine Lumbar (Routine) [facility] Imaging Services [address] [place], [place] [id number] Spine Lumbar (Routine) MR#: [id number] Acct: [id number] Name: LENA CHAPARRO Rep #: [id number] : 1980 F 43 From: Kayli zhao MD PCP: Dr. Wilver Jones MD Status: REG CL Study: Spine Lumbar (Routine) Date of Exam: 11/15/23 Exam# [id number] Ordering Dr: Bal Yuan DPSherwin :[id number] HISTORY: Back pain. TECHNIQUE: Multiplanar and multisequence [...] CC: RADHA Yuan; Dr. Wilver Jones MD Engineering Inspector: Signed Normal [facility] LCon 08-13-2023 Order Number [id number] [facility] ([place]) Comment on above: Order Comment: PMP22 MLPA Deletion/Duplication LC Test Code: 347869 CPT: 90789 Performed By: #### 9 [id number] #### Leonie [place] [address] [place], [place] [address] Test Name PMP22 MLPA Deletion/Dup Normal [facility] ([place]) Comment on above: Order Comment: PMP22 MLPA Deletion/Duplication LC Test Code: 595537 CPT: 94700 Performed By: #### 9 82743 #### Leonie [place] [address] [place], [place] [address] [facility] LCon 08-12-2023 [facility] Test Result COMMENT [facility] ([place]) Comment on above: Order Comment: PMP22 MLPA Deletion/Duplication LC Test Code: 778572 CPT: 09581 Result Comment: Test Ordered: [id number] PMP22 MLPA Del/Dup Analysis PMP22 MLPA Del/Dup Analysis Note [facility] TESTS RESULT FLAG UNITS REF RANGE LAB PMP22 MLPA Result Note 01 PDF report to be sent separately This test was developed and its performance characteristics determined by [facility]. It has not been cleared or approved by the Food and Drug Administration. FLAG LEGEND: L-Low Normal,H-High Normal,LL-Alert Low,HH-Alert High <-Panic Low,>-Panic High,A-Abnormal,AA-Critical Abnormal Performed at: [facility] [address], [place] [address] Jeannine Fay PhD, Performed At: [facility] [address] [place], [place] [id number] Mamadou Colon PhD Ph:[phone] Performed At: [facility] [address] [place], [place] [id number] Sumeet Paez PhD Ph:[phone] Performed By: #### 9 [address] #### Leonie [address] [address] Absolute lymphocyte countOrd ered By: Yamila Butt on 05-02-2023 Lymphocytes Auto (Unsp spec) [#/Vol] 3.31 10*3/uL 0.83-4.51 [facility] Automated lymphocyte count a s percentage of total leukocytesOrdered By: Yamila Butt on 05-02-2023 Lymphocytes/100 WBC Auto (Unsp spec) 27.9 % 19-41 [facility] Basophil percentageOrdered B y: Remus Filomena on 05-02-2023 Basophils/100 WBC (Bld) 0.5 % 0-1 [facility] Chloride [Moles/Vol] 110 mmol/L 98-107 [facility] Eosinophils/100 WBC (Bld) 2.3 % 0-5 [facility] Glucose [Mass/Vol] 112 mg/dL 74-106 [facility] Comment on above: Fasting Glucose resu lt from 100 to 125 mg/dL suggests IMPAIRED HOMEOSTASIS per A.D.A. criteria. Hemoglobin (Bld) [Mass/Vol] 13.8 g/dL 12.0-15.0 [facility] Monocytes/100 WBC (Bld) 6.2 % 0-10 [facility] Neutrophils (Bld) [#/Vol] 7.5 10*3/uL 2.0-7.7 [facility] Neutrophils/100 WBC (Bld) 62.9 % 47-70 [facility] Potassium [Moles/Vol] 4.0 mmol/L 3.5-5.1 [facility] Comment on above: Slight Hemolysis, Re sult may be falsely increased. Sodium [Moles/Vol] 136 mmol/L 136-145 [facility] WBC (Bld) [#/Vol] 11.9 10*3/uL 4.4-11.0 [facility] Determination of erythrocyte mean corpuscular volume (MCV)Ordered By: [facility] MCV (RBC) [Entitic vol] 89.2 fL 81-99 [facility] Erythrocyte distribution wid th ratioOrdered By: [facility] Foundationa[facility]rey on 05-02-2023 Erythrocyte distribution width (RBC) [Ratio] 13.4 % 11.6-14.6 [facility] Erythrocyte distribution wid th standard deviationOrdered By: [facility] Foundationa[facility]rey on 05-02-2023 Erythrocyte distribution width (RBC) [Entitic vol] 44.1 fL 35.1-43.9 [facility] Hematocrit Auto (Bld) [Volum e fraction]Ordered By: [facility] on 05-02-2023 Hematocrit (Bld) [Volume fraction] 42.1 % 37-47 [facility] Immature granulocytes/100 WB C Auto (Bld)Ordered By: [facility] on 05-02-2023 Immature granulocytes/100 WBC (Bld) 0.200 % 0.0-0.9 [facility] Comment on above: IG% - Immature Granu locytes (promyelocytes, myelocytes and metamyelocytes) > 1% indicates that a LEFT SHIFT is Present. Laboratory - Chemistry and C hemistry - challengeOrdered By: [facility] CO2 [Moles/Vol] 24.0 mmol/L 21.0-32.0 [facility] Urea nitrogen/Creatinine [Mass ratio] 22.9 mg/mg 10-20 [facility] Laboratory - Hematology and Cell countsOrdered By: [facility] Foundationa[facility]rey on 05-02-2023 MCH (RBC) [Entitic mass] 29.2 pg 27.0-32.0 [facility] MCHC (RBC) [Mass/Vol] 32.8 g/dL 32-36 [facility] Nucleated RBC/100 WBC (Bld) [Ratio] 0 % 0-5 [facility] Platelet mean volume (Bld) [Entitic vol] 9.7 fL 6.2-12.0 [facility] Platelets (Bld) [#/Vol] 365 10*3/uL 150-450 [facility] No Panel InformationOrdered By: Yamila Butt on 05-02-2023 Estimated Creatinine Clearance Calc 126.19 ml/min [facility] Estimated GFR (MDRD) Amer 138 mL/min >60 [facility] Comment on above: GFR Calc Estimated GFR (MDRD) Non-Af Amer 114 mL/min >60 [facility] Comment on above: Non- GFR Calc RBC Auto (Bld) [#/Vol]Ordere d By: Yamila Butt on 05-02-2023 RBC (Bld) [#/Vol] 4.72 10*6/uL 4.2-5.4 [facility] Serum heterophile antibody d etectionOrdered By: Yamila Butt on 05-02-2023 Heterophile Ab Ql (S) Negative Negative [facility] Serum or plasma calcium beatrice urement (mass/volume)Ordered By: Yamila Butt on 05-02-2023 Calcium [Mass/Vol] 8.8 mg/dL 8.5-10.1 [facility] Serum or plasma creatinine m easurement (mass/volume)Ordered By: Yamila Butt on 05-02-2023 Creatinine [Mass/Vol] 0.61 mg/dL 0.55-1.02 [facility] Comment on above: The validity of the calculated GFR & GFRAA in patients over 70 years has not been determined. Clinical correlation is essential. Serum or plasma urea nitroge n measurement (mass/volume)Ordered By: Yamila Butt on 05-02-2023 Urea nitrogen [Mass/Vol] 14 mg/dL 7-18 [facility] Streptococcus pyogenes rRNA detection in throat by DNA probeOrdered By: Yamila Butt on 05-02-2023 S. pyogenes rRNA Probe Ql (Throat) [facility] Thin prep Papanicolaou smear with manual screeningOrdered By: Yamila Butt on 05-02-2023 Thin prep Papanicolaou smear with manual screening 2 5-15 [facility] Laboratory - Chemistry and C hemistry - challengeOrdered By: Isaiah White on 10-23-2022 HCG ( test) Ql (U) Negative [facility] Comment on above: Very dilute urine sp ecimens, as indicated by a low specificgravity, may not contain fraud representative levels of hCG. If is still suspected, a first morning urinespecimen should be collected 48 hours later and tested. US BREAST LTD RIGHTon 2022 [facility] US FEMALE PELVIS TRANSVAGon 07-27-2022 [facility] NM CARDIAC PERF STRESS/PHARM on 07-22-2022 NM [...] later. See administered radiotracer and doses below. [facility] Date of service: 07/22/2022 12:56:39 PM Ordering [...] Final * * * Stress ECG Report: [facility] Date of service: 07/22/2022 12:56:39 PM Ordering physician: KATHERINE LOZANO process specialist: Kayli Sorensen Rad Technologist: Brianna Ball Interpreting physician: Volodymyr Rodriguez DO [...] 126/62 mmHg. The double product achieved was [address]. Resting ECG: Normal Sinus Rhythm Symptoms at [...] / 62 mmHg Rate Pressure Product (RPP): 35865 Stress Exercise Observations: Reason for test termination: end of protocol, Symptoms during test: Other symptoms during the test included SOB, headache and nausea, ST segment and T wave changes: No ST changes and Arrhythmias: No arrhythmias Electronically signed by Volodymyr Neff (more content not included)... [facility] Aravind 07-21-2022 ONEYDA Telephone ([facility]) LENA CHAPARRO ([id number]) 1980 F Date Time Provider Department 07/21/22 HUMA RAINEY [facility] During your visit today, we recorded the following information about you: Huma Rainey RN 07/21/2022 2:01 PM Signed Spoke with patient regarding reminder for stress test tomorrow and given instructions. Allergies As of Date: 07/21/2022 Noted Allergy Reaction TIOCONAZOLE 01/30/2005 7 - Swelling Comments: Labial swelling Date Reviewed: 07/15/2022 Reviewed by: Klaudia Cobb APRN.FOOD SERVICE CASHIER - Fully Assessed Reason for Visit: Reminder Call [[id number]] Prescriptions as of 07/21/2022 - miSOPROStol (CYTOTEC) [...] Encounter Status:Closed by HUMA RAINEY on 07/21/22 [facility] SCREENINGon 07-15-2022 [facility] Absolute lymphocyte countOrd ered By: Fabrizio Vanegas on 06-13-2022 Lymphocytes Auto (Unsp spec) [#/Vol] 3.61 10*3/uL 0.83-4.51 [facility] Basophil percentageOrdered B y: Fabrizio Vanegas on 06-13-2022 Basophils/100 WBC (Bld) 0.3 % 0-1 [facility] Chloride [Moles/Vol] 110 mmol/L 98-107 [facility] Eosinophils/100 WBC (Bld) 2.5 % 0-5 [facility] Glucose [Mass/Vol] 106 mg/dL 74-106 [facility] Comment on above: Fasting Glucose resu lt from 100 to 125 mg/dL suggests IMPAIRED HOMEOSTASIS per A.D.A. criteria. Neutrophils (Bld) [#/Vol] 4.5 10*3/uL 2.0-7.7 [facility] Neutrophils/100 WBC (Bld) 50.6 % 47-70 [facility] Potassium [Moles/Vol] 3.7 mmol/L 3.5-5.1 [facility] Sodium [Moles/Vol] 140 mmol/L 136-145 [facility] WBC (Bld) [#/Vol] 9.0 10*3/uL 4.4-11.0 [facility] Blood erythrocytes count (nu mber/volume)Ordered By: Fabrizio Vanegas on 06-13-2022 RBC (Bld) [#/Vol] 4.79 10*6/uL 4.2-5.4 [facility] Blood hemoglobin measurement (mass/volume)Ordered By: Fabrizio Vanegas on 06-13-2022 Hemoglobin (Bld) [Mass/Vol] 14.4 g/dL 12.0-15.0 [facility] Blood lymphocytes/100 leukoc ytesOrdered By: Fabrizio Vanegas on 06-13-2022 Lymphocytes/100 WBC (Bld) 40.2 % 19-41 [facility] Blood monocytes/100 leukocyt esOrdered By: Fabrizio Vanegas on 06-13-2022 Monocytes/100 WBC (Bld) 6.2 % 0-10 [facility] Blood platelet mean volumeOr dered By: Fabrizio Vanegas on 06-13-2022 Platelet mean volume (Bld) [Entitic vol] 9.9 fL 6.2-12.0 [facility] Determination of erythrocyte mean corpuscular volume (MCV)Ordered By: Fabrizio Vanegas on 06-13-2022 MCV (RBC) [Entitic vol] 91.0 fL 81-99 [facility] Hematocrit Auto (Bld) [Volum e fraction]Ordered By: Fabrizio Vanegas on 06-13-2022 Hematocrit (Bld) [Volume fraction] 43.6 % 37-47 [facility] Laboratory - Chemistry and C hemistry - challengeOrdered By: Fabrizio Vanegas on 06-13-2022 CO2 [Moles/Vol] 23.0 mmol/L 21.0-32.0 [facility] Magnesium [Mass/Vol] 2.3 mg/dL 1.6-2.6 [facility] Urea nitrogen/Creatinine [Mass ratio] 32.1 mg/mg 10-20 [facility] Laboratory - Hematology and Cell countsOrdered By: Fabrizio Vanegas on 06-13-2022 Erythrocyte distribution width (RBC) [Entitic vol] 43.8 fL 35.1-43.9 [facility] Erythrocyte distribution width (RBC) [Ratio] 13.0 % 11.6-14.6 [facility] Immature granulocytes/100 WBC (Bld) 0.200 % 0.0-0.9 [facility] Comment on above: IG% - Immature Granu locytes (promyelocytes, myelocytes and metamyelocytes) > 1% indicates that a LEFT SHIFT is Present. MCH (RBC) [Entitic mass] 30.1 pg 27.0-32.0 [facility] Nucleated RBC/100 WBC (Bld) [Ratio] 0 % 0-5 [facility] MCHC Auto (RBC) [Mass/Vol]Or dered By: Fabrizio Vanegas on 06-13-2022 MCHC (RBC) [Mass/Vol] 33.0 g/dL 32-36 [facility] No Panel InformationOrdered By: Fabrizio Vanegas on 06-13-2022 Estimated Creatinine Clearance Calc 104.16 ml/min [facility] Estimated GFR (MDRD) Amer 136 mL/min >60 [facility] Comment on above: GFR Calc Estimated GFR (MDRD) Non-Af Amer 112 mL/min >60 [facility] Comment on above: Non- GFR Calc Troponin I High Sensitivity 3 pg/mL 3.0-54.0 [facility] Comment on above: Please Note: New Ellen t Units and Gender Specific Reference Ranges. For more information see Policy Stat Procedure [place] High Sensitivity Troponin (TNIH) and attachments. Platelets bldOrdered By: Fer Vanegas on 06-13-2022 Platelets (Bld) [#/Vol] 415 10*3/uL 150-450 [facility] Serum or plasma calcium beatrice urement (mass/volume)Ordered By: Fabrizio Vanegas on 06-13-2022 Calcium [Mass/Vol] 9.1 mg/dL 8.5-10.1 [facility] Serum or plasma creatinine m easurement (mass/volume)Ordered By: Fabrizio Vanegas on 06-13-2022 Creatinine [Mass/Vol] 0.62 mg/dL 0.55-1.02 [facility] Comment on above: The validity of the calculated GFR & GFRAA in patients over 70 years has not been determined. Clinical correlation is essential. Serum or plasma urea nitroge n measurement (mass/volume)Ordered By: Fabrizio Vanegas on 06-13-2022 Urea nitrogen [Mass/Vol] 20 mg/dL 7-18 [facility] Thin prep Papanicolaou smear with manual screeningOrdered By: Fabrizio Vanegas on 06-13-2022 Thin prep Papanicolaou smear with manual screening 7 5-15 [facility] UA DIP, URINE (POC)on 2022 BILIRUBIN UA (POCT) Negative Negative [facility] CLARITY UA (POCT) Slightly Cloudy Cl [facility] COLOR UA (POCT) Yellow [facility] GLUCOSE UA (POCT) Negative Negative mg/dL [facility] HEMOGLOBIN/BLOOD UA (POCT) Moderate Abnormal Negative [facility] KETONE UA (POCT) Trace Negative mg/dL [facility] LEUKOCYTES UA (POCT) Negative [facility] NITRITE UA (POCT) Negative Negative [facility] PH UA (POCT) 5.5 4.5 - 8.0 [facility] Protein Ql (U) 30 mg/dL Abnormal Negative mg/dL [facility] SPECIFIC GRAVITY UA (POCT) >=1.030 1.005 - 1.030 [facility] UROBILINOGEN UA (POCT) 0.2 E.U./dL Normal E.U./dL [facility] Absolute lymphocyte counton 01-06-2022 Lymphocytes Auto (Unsp spec) [#/Vol] 3.42 10*3/uL 0.83-4.51 [facility] Work Phone: Basophil percentageon 2021 Basophil percentage 0 SEEN /hpf 0-5 [facility] Work Phone: Basophils/100 WBC (Bld) 0.6 % 0-1 [facility] Work Phone: Chloride [Moles/Vol] 110 mmol/L 98-107 [facility] Work Phone: Eosinophils/100 WBC (Bld) 2.3 % 0-5 [facility] Work Phone: Glucose [Mass/Vol] 101 mg/dL 74-106 [facility] Work Phone: Comment on above: Fasting Glucose resu lt from 100 to 125 mg/dL suggests IMPAIRED HOMEOSTASIS per A.D.A. criteria. Neutrophils (Bld) [#/Vol] 5.5 10*3/uL 2.0-7.7 [facility] Work Phone: Neutrophils/100 WBC (Bld) 56.1 % 47-70 [facility] Work Phone: Potassium [Moles/Vol] 4.1 mmol/L 3.5-5.1 [facility] Work Phone: Comment on above: Moderate Hemolysis, Result may be falsely increased. Sodium [Moles/Vol] 139 mmol/L 136-145 [facility] Work Phone: WBC (Bld) [#/Vol] 9.9 10*3/uL 4.4-11.0 [facility] Work Phone: Beta hCG serum qualon 2021 Beta HCG ( test) Ql Negative [facility] Work Phone: Bilirubin Test strip Ql (U)o n 01-06-2022 Bilirubin Ql (U) Negative Negative [facility] Work Phone: Blood erythrocytes count (nu mber/volume)on 01-06-2022 RBC (Bld) [#/Vol] 4.85 10*6/uL 4.2-5.4 [facility] Work Phone: Blood hemoglobin measurement (mass/volume)on 01-06-2022 Hemoglobin (Bld) [Mass/Vol] 14.4 g/dL 12.0-15.0 [facility] Work Phone: [phone] Blood lymphocytes/100 leukoc yteson 01-06-2022 Lymphocytes/100 WBC (Bld) 34.7 % 19-41 [facility] Work Phone: Blood monocytes/100 leukocyt eson 01-06-2022 Monocytes/100 WBC (Bld) 6.0 % 0-10 [facility] Work Phone: Blood platelet adequacy dete ction by light microscopyon 01-06-2022 Platelets LM Ql (Bld) MOD DEC ADEQ [facility] Work Phone: Blood platelet mean volumeon 01-06-2022 Platelet mean volume (Bld) [Entitic vol] 12.0 fL 6.2-12.0 [facility] Work Phone: Determination of erythrocyte mean corpuscular volume (MCV)on 01-06-2022 MCV (RBC) [Entitic vol] 91.5 fL 81-99 [facility] Work Phone: Hematocrit Auto (Bld) [Volum e fraction]on 01-06-2022 Hematocrit (Bld) [Volume fraction] 44.4 % 37-47 [facility] Work Phone: Ketones Test strip Ql (U)on 01-06-2022 Ketones Ql (U) Negative Negative [facility] Work Phone: Laboratory - Chemistry and C hemistry - challengeon 01-06-2022 CO2 [Moles/Vol] 25.0 mmol/L 21.0-32.0 [facility] Work Phone: Urea nitrogen/Creatinine [Mass ratio] 25.3 mg/mg 10-20 [facility] Work Phone: Laboratory - Hematology and Cell countson 01-06-2022 Anisocytosis Ql (Bld) RARE [facility] Work Phone: Erythrocyte distribution width (RBC) [Entitic vol] 45.9 fL 35.1-43.9 [facility] Work Phone: Erythrocyte distribution width (RBC) [Ratio] 13.4 % 11.6-14.6 [facility] Work Phone: Immature granulocytes/100 WBC (Bld) 0.300 % 0.0-0.9 [facility] Work Phone: Comment on above: IG% - Immature Granu locytes (promyelocytes, myelocytes and metamyelocytes) > 1% indicates that a LEFT SHIFT is Present. MCH (RBC) [Entitic mass] 29.7 pg 27.0-32.0 [facility] Work Phone: Nucleated RBC/100 WBC (Bld) [Ratio] 0 % 0-5 [facility] Work Phone: MCHC Auto (RBC) [Mass/Vol]on 01-06-2022 MCHC (RBC) [Mass/Vol] 32.4 g/dL 32-36 [facility] Work Phone: Macrocytes detectionon 01-06 Macrocytes Ql (Bld) RARE [facility] [facility] Work Phone: Mucus LM Ql (Urine sed)on Mucus Ql (Urine sed) 0 SEEN /hpf [facility] Work Phone: Nitrite Test strip Ql (U)on 01-06-2022 Nitrite Ql (U) Negative Negative [facility] Work Phone: No Panel Informationon 01-06 Estimated Creatinine Clearance Calc 110.55 ml/min [facility] Work Phone: Estimated GFR (MDRD) Amer 144 mL/min >60 [facility] Work Phone: Comment on above: GFR Calc Estimated GFR (MDRD) Non-Af Amer 119 mL/min >60 [facility] Work Phone: Comment on above: Non- GFR Calc Troponin I High Sensitivity 3 pg/mL 3.0-54.0 [facility] Work Phone: Comment on above: Please Note: New Ellen t Units and Gender Specific Reference Ranges. For more information see Policy Stat Procedure [place] High Sensitivity Troponin (TNIH) and attachments. Platelets bldon 01-06-2022 Platelets (Bld) [#/Vol] 84 10*3/uL 150-450 [facility] Work Phone: Protein Test strip Ql (U)on 01-06-2022 Protein Ql (U) Negative Negative [facility] Work Phone: Serum or plasma calcium beatrice urement (mass/volume)on 01-06-2022 Calcium [Mass/Vol] 9.8 mg/dL 8.5-10.1 [facility] Work Phone: Serum or plasma creatinine m easurement (mass/volume)on 01-06-2022 Creatinine [Mass/Vol] 0.59 mg/dL 0.55-1.02 [facility] Work Phone: Comment on above: The validity of the calculated GFR & GFRAA in patients over 70 years has not been determined. Clinical correlation is essential. Serum or plasma urea nitroge n measurement (mass/volume)on 01-06-2022 Urea nitrogen [Mass/Vol] 15 mg/dL 7-18 [facility] Work Phone: Squamous epithelial cells de tection in urine sediment by light microscopyon 01-06-2022 Epithelial cells.squamous LM Ql (Urine sed) 0-5 SEEN /hpf 5-10 [facility] Work Phone: Thin prep Papanicolaou smear with manual screeningon 01-06-2022 Thin prep Papanicolaou smear with manual screening 4 5-15 [facility] Work Phone: Urine blood detectionon 12-17 RBC Ql (U) 50 /ul Negative [facility] Work Phone: RBC Ql (U) 0 SEEN /hpf 0-5 [facility] Work Phone: Urine clarityon 01-06-2022 Clarity (U) Clear Clear [facility] Work Phone: Urine color determinationon 01-06-2022 Color (U) Yellow Yellow [facility] Work Phone: Urine glucose detectionon Glucose Ql (U) Normal mg/dl Normal [facility] Work Phone: Urine leukocyte esterase det ection by dipstickon 01-06-2022 Leukocyte esterase Test strip Ql (U) Negative Negative [facility] Work Phone: Urine pHon 01-06-2022 pH (U) 6.0 [pH] 5.0 - 8.0 [facility] Work Phone: Urine sediment bacteria coun t by microscopy (number/high power field)on 01-06-2022 Bacteria LM.HPF (Urine sed) [#/Area] 0 /[HPF] None Seen [facility] Work Phone: Urine specific gravity measu rementon 01-06-2022 Specific gravity (U) [Rel density] 1.020 1.002-1.03 0 [facility] Work Phone: Urobilinogen Auto test strip Ql (U)on 01-06-2022 Urobilinogen Ql (U) Normal mg/dl Normal [facility] Work Phone: Office Visit: UC: Contact [place] 10-08-2016 Documentation of current medications (procedure) Done Invalid Interpretation Code [facility] Work Phone: Protein mass conc Done [facility] Work Phone: Tobacco smoking status NHIS Current every day smoker [facility] Work Phone: Tobacco use CPHS Current every day smoker Invali d Interpretation Code [facility] Work Phone: Vital Signs Date Time Vital Sign Value Performing Clinician Facility 09-04-2024 05:07-0400 Body temperature 98.1 [degF] Dr. Wilver Jones MD Work Phone: [phone])[phone] [place] [address] 09-04-2024 05:07-0400 Diastolic blood pressure 99 mm[Hg] Dr. Wilver Jones MD Work Phone: 6(246)562-065709 [place] [address] 09-04-2024 05:07-0400 Heart rate 85 /min Dr. Wilver Jones MD Work Phone: 7(664)556-638009 [place] [address] 09-04-2024 05:07-0400 Respiratory rate 18 /min Dr. Wilver Jones MD Work Phone: 0(866)914-144230 [place] [address] 09-04-2024 05:07-0400 SaO2% (BldA) [Mass fraction] 100 % Dr. Wilver Jones MD Work Phone: 4(162)113-187509 [place] [address] 09-04-2024 05:07-0400 Systolic blood pressure 155 mm[Hg] Dr. Wilver Jones MD Work Phone: 6(343)176-112430 [place] [address] 09-04-2024 04:44-0400 Body height 162.[address] Wilver Jones MD Work Phone: 1(653)647-249730 [place] [address] 09-04-2024 04:44-0400 Body mass index (BMI) [Ratio] 33.5 kg/m2 Dr. Wilver Jones MD Work Phone: 6(014)953-963109 [place] [address] 09-04-2024 04:44-0400 Body weight 88.[address] Wilver Jones MD Work Phone: 1(302)604-349330 [place] [address] 06-04-2024 11:34-0400 Body temperature 98.3 [degF] Dr. Wilver Jones MD Work Phone: 0(631)[phone] [place] [address] 06-04-2024 11:34-0400 Diastolic blood pressure 80 mm[Hg] Dr. Wilver Jones MD Work Phone: 1(155)565-735230 [place] [address] 06-04-2024 11:34-0400 Heart rate 91 /min Dr. Wilver Jones MD Work Phone: 1(454)822-197930 [place] [address] 06-04-2024 11:34-0400 Respiratory rate 15 /min Dr. Wilver Jones MD Work Phone: 1(653)033-524930 [place] [address] 06-04-2024 11:34-0400 SaO2% (BldA) [Mass fraction] 98 % Dr. Wilver Jones MD Work Phone: 4(495)405-851530 [place] [address] 06-04-2024 11:34-0400 Systolic blood pressure 130 mm[Hg] Dr. Wilver Jones MD Work Phone: 4(610)393-156730 [place] [address] 05-28-2024 14:57-0400 Body mass index (BMI) [Ratio] 32.17 kg/m2 Krislyn Aberegg PA Work Phone: 1(505)434-701956 [place] [address] 05-28-2024 14:57-0400 Body temperature 97.2 [degF] Krislyn Aberegg PA Work Phone: [facility] 05-28-2024 14:57-0400 Body weight 85 kg Krislyn Aberegg PA Work Phone: [facility] 05-28-2024 14:57-0400 Diastolic blood pressure 85 mm[Hg] Krislyn Aberegg PA Work Phone: [facility] 05-28-2024 14:57-0400 Heart rate 94 /min Krislyn Aberegg PA Work Phone: [facility] 05-28-2024 14:57-0400 Respiratory rate 22 /min Krislyn Aberegg PA Work Phone: [facility] 05-28-2024 14:57-0400 SaO2% (BldA) [Mass fraction] 98 % Krislyn Aberegg PA Work Phone: [facility] 05-28-2024 14:57-0400 Systolic blood pressure 122 mm[Hg] Krislyn Aberegg PA Work Phone: [facility] 10-19-2023 14:37-0400 Body height 162.6 cm Wilver Jones MD Work Phone: [facility] 10-19-2023 14:37-0400 Body mass index (BMI) [Ratio] 31.58 kg/m2 Wilver Jones MD Work Phone: [facility] 10-19-2023 14:37-0400 Body weight 83.46 kg Wilver Jones MD Work Phone: [facility] 10-19-2023 14:37-0400 Diastolic blood pressure 76 mm[Hg] Wilver Jones MD Work Phone: [facility] 10-19-2023 14:37-0400 Heart rate 87 /min Wilver Jones MD Work Phone: [facility] 10-19-2023 14:37-0400 SaO2% (BldA) [Mass fraction] 98 % Wilver Jones MD Work Phone: [facility] 10-19-2023 14:37-0400 Systolic blood pressure 110 mm[Hg] Wilver Jones MD Work Phone: [facility] 09-15-2023 17:39-0400 Body mass index (BMI) [Ratio] 31.07 kg/m2 Lorena Warner APRN.FOOD SERVICE CASHIER Work Phone: [facility] 09-15-2023 17:39-0400 Body weight 82.1 kg Lorena Warner APRN.FOOD SERVICE CASHIER Work Phone: [facility] 09-15-2023 17:39-0400 Diastolic blood pressure 82 mm[Hg] Lorena Podlogar GENERAL PRODUCTION LABORER.FOOD SERVICE CASHIER Work Phone: [facility] 09-15-2023 17:39-0400 Heart rate 99 /min Lorena Podlogar GENERAL PRODUCTION LABORER.FOOD SERVICE CASHIER Work Phone: [facility] 09-15-2023 17:39-0400 Respiratory rate 18 /min Lorena Podlogar GENERAL PRODUCTION LABORER.FOOD SERVICE CASHIER Work Phone: [facility] 09-15-2023 17:39-0400 SaO2% (BldA) [Mass fraction] 98 % Lorena Podlogar GENERAL PRODUCTION LABORER.FOOD SERVICE CASHIER Work Phone: [facility] 09-15-2023 17:39-0400 Systolic blood pressure 124 mm[Hg] Lorena Podlogar GENERAL PRODUCTION LABORER.FOOD SERVICE CASHIER Work Phone: [facility] 08-02-2023 12:23-0400 Body mass index (BMI) [Ratio] 31.07 kg/m2 Johnathan Scott GENERAL PRODUCTION LABORER.FOOD SERVICE CASHIER Work Phone: [facility] 08-02-2023 12:23-0400 Body temperature 97.9 [degF] Johnathan Chavez GENERAL PRODUCTION LABORER.FOOD SERVICE CASHIER Work Phone: [facility] 08-02-2023 12:23-0400 Body weight 82.1 kg Johnathan Chavez GENERAL PRODUCTION LABORER.FOOD SERVICE CASHIER Work Phone: [facility] 08-02-2023 12:23-0400 Diastolic blood pressure 82 mm[Hg] Johnathan Marieleashley GENERAL PRODUCTION LABORER.FOOD SERVICE CASHIER Work Phone: [facility] 08-02-2023 12:23-0400 Heart rate 102 /min Johnathan Pendbrant GENERAL PRODUCTION LABORER.FOOD SERVICE CASHIER Work Phone: [facility] 08-02-2023 12:23-0400 Respiratory rate 18 /min Johnathan Marieleashley GENERAL PRODUCTION LABORER.FOOD SERVICE CASHIER Work Phone: [facility] 08-02-2023 12:23-0400 SaO2% (BldA) [Mass fraction] 98 % Johnathan Chavez GENERAL PRODUCTION LABORER.FOOD SERVICE CASHIER Work Phone: [facility] 08-02-2023 12:23-0400 Systolic blood pressure 132 mm[Hg] Johnathan Chavez APRN.FOOD SERVICE CASHIER Work Phone: [facility] 07-19-2023 14:45-0400 Body height 162.6 cm Wilver Jones MD Work Phone: [facility] 07-19-2023 14:45-0400 Body mass index (BMI) [Ratio] 31.24 kg/m2 Wilver Jones MD Work Phone: [facility] 07-19-2023 14:45-0400 Body weight 82.56 kg Wilver Jones MD Work Phone: [facility] 07-19-2023 14:45-0400 Diastolic blood pressure 66 mm[Hg] Wilver Jones MD Work Phone: [facility] 07-19-2023 14:45-0400 Heart rate 110 /min Wilver Jones MD Work Phone: [facility] 07-19-2023 14:45-0400 SaO2% (BldA) [Mass fraction] 97 % Wilver Jones MD Work Phone: [facility] 07-19-2023 14:45-0400 Systolic blood pressure 90 mm[Hg] Wilver Jones MD Work Phone: [facility] 05-07-2023 08:53-0400 Body weight 81.65 kg Wilver Jones MD Work Phone: [facility] 05-07-2023 08:53-0400 Diastolic blood pressure 82 mm[Hg] Wilver Jones MD Work Phone: [facility] 05-07-2023 08:53-0400 Heart rate 85 /min Wilver Jones MD Work Phone: [facility] 05-07-2023 08:53-0400 SaO2% (BldA) [Mass fraction] 97 % Wilvre Jones MD Work Phone: [facility] 05-07-2023 08:53-0400 Systolic blood pressure 122 mm[Hg] Wilver Jones MD Work Phone: [facility] 05-02-2023 12:55-0400 Body temperature 95.2 [degF] [facility] 05-02-2023 12:55-0400 Diastolic blood pressure 74 mm[Hg] [facility] 05-02-2023 12:55-0400 Heart rate 71 /min [facility] 05-02-2023 12:55-0400 Respiratory rate 16 /min [facility] 05-02-2023 12:55-0400 SaO2% (BldA) [Mass fraction] 98 % [facility] 05-02-2023 12:55-0400 Systolic blood pressure 110 mm[Hg] [facility] 05-02-2023 09:12-0400 Body height 162.56 cm [facility] 05-02-2023 09:12-0400 Body mass index (BMI) [Ratio] 31.2 kg/m2 [facility] 05-02-2023 09:12-0400 Body weight 82.6 kg [facility] 04-08-2023 16:28-0500 Body temperature 96.91 [degF] Arnoldo Mccloud MD Work Phone: [facility] 04-08-2023 16:28-0500 Body weight 79.29 kg Arnoldo Mccloud MD Work Phone: [facility] 04-08-2023 16:28-0500 Diastolic blood pressure 70 mm[Hg] Arnoldo Mccloud MD Work Phone: [facility] 04-08-2023 16:28-0500 Heart rate 106 /min Arnoldo Mccloud MD Work Phone: [facility] 04-08-2023 16:28-0500 Respiratory rate 16 /min Arnoldo Mccloud MD Work Phone: [facility] 04-08-2023 16:28-0500 SaO2% (BldA) [Mass fraction] 98 % Arnoldo Mccloud MD Work Phone: [facility] 04-08-2023 16:28-0500 Systolic blood pressure 102 mm[Hg] Arnoldo Mccloud MD Work Phone: [facility] 03-23-2023 16:07-0500 Body weight 80.74 kg Clover Suppan GENERAL PRODUCTION LABORER.NAVIGATION TEACHER Work Phone: [facility] 03-23-2023 16:07-0500 Diastolic blood pressure 62 mm[Hg] Clover Suppan GENERAL PRODUCTION LABORER.NAVIGATION TEACHER Work Phone: [facility] 03-23-2023 16:07-0500 Heart rate 103 /min Clover Suppan GENERAL PRODUCTION LABORER.NAVIGATION TEACHER Work Phone: [facility] 03-23-2023 16:07-0500 Respiratory rate 16 /min Clover Suppan GENERAL PRODUCTION LABORER.NAVIGATION TEACHER Work Phone: [facility] 03-23-2023 16:07-0500 SaO2% (BldA) [Mass fraction] 99 % Clover Suppan GENERAL PRODUCTION LABORER.NAVIGATION TEACHER Work Phone: [facility] 03-23-2023 16:07-0500 Systolic blood pressure 120 mm[Hg] Clover Suppan GENERAL PRODUCTION LABORER.NAVIGATION TEACHER Work Phone: [facility] 01-13-2023 09:27-0500 Body weight 78.47 kg Wilver Jones MD Work Phone: [facility] 01-13-2023 09:27-0500 Diastolic blood pressure 82 mm[Hg] Wilver Jones MD Work Phone: [facility] 01-13-2023 09:27-0500 Heart rate 114 /min Wilver Jones MD Work Phone: [facility] 01-13-2023 09:27-0500 SaO2% (BldA) [Mass fraction] 96 % Wilver Jones MD Work Phone: [facility] 01-13-2023 09:27-0500 Systolic blood pressure 132 mm[Hg] Wilver Jones MD Work Phone: [facility] 12-25-2022 15:44-0500 Body temperature 97.3 [degF] Luis Angel Lopez MD Work Phone: [facility] 12-25-2022 15:44-0500 Body weight 78.02 kg Luis Angel Lopez MD Work Phone: [facility] 12-25-2022 15:44-0500 Diastolic blood pressure 70 mm[Hg] Luis Angel Lopez MD Work Phone: [facility] 12-25-2022 15:44-0500 Heart rate 97 /min Luis Angel Lopez MD Work Phone: [facility] 12-25-2022 15:44-0500 Respiratory rate 16 /min Luis Angel Lopez MD Work Phone: [facility] 12-25-2022 15:44-0500 SaO2% (BldA) [Mass fraction] 96 % Luis Angel Lopez MD Work Phone: [facility] 12-25-2022 15:44-0500 Systolic blood pressure 128 mm[Hg] Luis Angel Lopez MD Work Phone: [facility] 11-03-2022 14:00-0400 Diastolic blood pressure 78 mm[Hg] Wilver Jones MD Work Phone: [facility] 11-03-2022 14:00-0400 Heart rate 87 /min Wilver Jones MD Work Phone: [facility] 11-03-2022 14:00-0400 Respiratory rate 16 /min Wilver Jones MD Work Phone: [facility] 11-03-2022 14:00-0400 SaO2% (BldA) [Mass fraction] 99 % Wilver Jones MD Work Phone: [facility] 11-03-2022 14:00-0400 Systolic blood pressure 118 mm[Hg] Wilver Jones MD Work Phone: [facility] 10-23-2022 17:12-0400 Body temperature 98.7 [degF] [facility] 10-23-2022 17:12-0400 Diastolic blood pressure 86 mm[Hg] [facility] 10-23-2022 17:12-0400 Heart rate 73 /min [facility] 10-23-2022 17:12-0400 Respiratory rate 16 /min [facility] 10-23-2022 17:12-0400 SaO2% (BldA) [Mass fraction] 99 % [facility] 10-23-2022 17:12-0400 Systolic blood pressure 119 mm[Hg] [facility] 10-23-2022 12:55-0400 Body height 162.56 cm [facility] 10-23-2022 12:55-0400 Body mass index (BMI) [Ratio] 28.8 kg/m2 [facility] 10-23-2022 12:55-0400 Body weight 76 kg [facility] 10-12-2022 17:00-0400 Body weight 76.2 kg Katherine Lozano GENERAL PRODUCTION LABORER.FOOD SERVICE CASHIER Work Phone: [facility] 10-12-2022 17:00-0400 Diastolic blood pressure 76 mm[Hg] Katherine Lozano GENERAL PRODUCTION LABORER.FOOD SERVICE CASHIER Work Phone: [facility] 10-12-2022 17:00-0400 Heart rate 105 /min Katherine Lozano GENERAL PRODUCTION LABORER.FOOD SERVICE CASHIER Work Phone: [facility] 10-12-2022 17:00-0400 Respiratory rate 16 /min Katherine Lozano GENERAL PRODUCTION LABORER.FOOD SERVICE CASHIER Work Phone: [facility] 10-12-2022 17:00-0400 SaO2% (BldA) [Mass fraction] 97 % Katherine Lozano GENERAL PRODUCTION LABORER.FOOD SERVICE CASHIER Work Phone: [facility] 10-12-2022 17:00-0400 Systolic blood pressure 108 mm[Hg] Katherine Lozano GENERAL PRODUCTION LABORER.FOOD SERVICE CASHIER Work Phone: [facility] 09-01-2022 11:31-0400 Body weight 76.39 kg Klaudia Cobb APRN.FOOD SERVICE CASHIER Work Phone: [facility] 09-01-2022 11:31-0400 Diastolic blood pressure 74 mm[Hg] Klaudia Cobb APRN.FOOD SERVICE CASHIER Work Phone: [facility] 09-01-2022 11:31-0400 Systolic blood pressure 120 mm[Hg] Klaudia Cobb APRN.FOOD SERVICE CASHIER Work Phone: [facility] 07-16-2022 11:04-0400 Body height 162.56 cm [facility] 07-16-2022 11:04-0400 Body mass index (BMI) [Ratio] 28.3 kg/m2 [facility] 07-16-2022 11:04-0400 Body temperature 98 [degF] [facility] 07-16-2022 11:04-0400 Body weight 74.84 kg [facility] 07-16-2022 11:04-0400 Diastolic blood pressure 77 mm[Hg] [facility] 07-16-2022 11:04-0400 Heart rate 91 /min [facility] 07-16-2022 11:04-0400 Respiratory rate 16 /min [facility] 07-16-2022 11:04-0400 SaO2% (BldA) [Mass fraction] 100 % [facility] 07-16-2022 11:04-0400 Systolic blood pressure 111 mm[Hg] [facility] 07-15-2022 15:01-0400 Body height 162.6 cm Klaudia Cobb APRN.FOOD SERVICE CASHIER Work Phone: [facility] 07-15-2022 15:01-0400 Body weight 74.84 kg Klaudia Cobb APRN.FOOD SERVICE CASHIER Work Phone: [facility] 07-15-2022 15:01-0400 Diastolic blood pressure 80 mm[Hg] Klaudia Cobb APRN.FOOD SERVICE CASHIER Work Phone: [facility] 07-15-2022 15:01-0400 Systolic blood pressure 118 mm[Hg] Klaudia Cobb APRN.FOOD SERVICE CASHIER Work Phone: [facility] 06-26-2022 13:06-0400 Diastolic blood pressure 72 mm[Hg] Katherine Lozano APRN.FOOD SERVICE CASHIER Work Phone: [facility] 06-26-2022 13:06-0400 Heart rate 102 /min Katherine Lozano APRN.FOOD SERVICE CASHIER Work Phone: [facility] 06-26-2022 13:06-0400 Respiratory rate 18 /min Katherine Lozano GENERAL PRODUCTION LABORER.FOOD SERVICE CASHIER Work Phone: [facility] 06-26-2022 13:06-0400 SaO2% (BldA) [Mass fraction] 96 % Katherine Lozano GENERAL PRODUCTION LABORER.FOOD SERVICE CASHIER Work Phone: [facility] 06-26-2022 13:06-0400 Systolic blood pressure 110 mm[Hg] Katherine Lozano GENERAL PRODUCTION LABORER.FOOD SERVICE CASHIER Work Phone: [facility] 06-13-2022 08:07-0400 Diastolic blood pressure 70 mm[Hg] [facility] 06-13-2022 08:07-0400 Heart rate 72 /min [facility] 06-13-2022 08:07-0400 Respiratory rate 14 /min [facility] 06-13-2022 08:07-0400 SaO2% (BldA) [Mass fraction] 99 % [facility] 06-13-2022 08:07-0400 Systolic blood pressure 120 mm[Hg] [facility] 06-13-2022 06:19-0400 Body height 162.56 cm [facility] 06-13-2022 06:19-0400 Body mass index (BMI) [Ratio] 28.8 kg/m2 [facility] 06-13-2022 06:19-0400 Body temperature 97 [degF] [facility] 06-13-2022 06:19-0400 Body weight 76.1 kg [facility] 05-28-2022 16:27-0400 Body height 162.6 cm Wilver Jones MD Work Phone: [facility] 05-28-2022 16:27-0400 Body weight 77.11 kg Wilver Jones MD Work Phone: [facility] 05-28-2022 16:27-0400 Diastolic blood pressure 94 mm[Hg] Wilver Jones MD Work Phone: [facility] 05-28-2022 16:27-0400 Heart rate 100 /min Wilver Jones MD Work Phone: [facility] 05-28-2022 16:27-0400 SaO2% (BldA) [Mass fraction] 99 % Wilver Jones MD Work Phone: [facility] 05-28-2022 16:27-0400 Systolic blood pressure 164 mm[Hg] Wilver Jones MD Work Phone: [facility] 05-16-2022 14:45-0400 Body temperature 96.8 [degF] Jennifer Saldivar GENERAL PRODUCTION LABORER.FOOD SERVICE CASHIER Work Phone: [facility] 05-16-2022 14:45-0400 Body weight 78.02 kg Jennifer Saldivar GENERAL PRODUCTION LABORER.FOOD SERVICE CASHIER Work Phone: [facility] 05-16-2022 14:45-0400 Diastolic blood pressure 82 mm[Hg] Jennifer Saldivar GENERAL PRODUCTION LABORER.FOOD SERVICE CASHIER Work Phone: [facility] 05-16-2022 14:45-0400 Heart rate 102 /min Jennifer Saldivar GENERAL PRODUCTION LABORER.FOOD SERVICE CASHIER Work Phone: [facility] 05-16-2022 14:45-0400 Respiratory rate 18 /min Jennifer Saldivar GENERAL PRODUCTION LABORER.FOOD SERVICE CASHIER Work Phone: [facility] 05-16-2022 14:45-0400 SaO2% (BldA) [Mass fraction] 98 % Jennifer Saldivar GENERAL PRODUCTION LABORER.FOOD SERVICE CASHIER Work Phone: [facility] 05-16-2022 14:45-0400 Systolic blood pressure 132 mm[Hg] Jennifer Saldivar GENERAL PRODUCTION LABORER.FOOD SERVICE CASHIER Work Phone: [facility] 04-07-2022 14:03-0500 Body height 162.6 cm Yarely Dawkins MD Work Phone: [facility] 04-07-2022 14:03-0500 Body weight 77.56 kg Yarely Dawkins MD Work Phone: [facility] 04-07-2022 14:03-0500 Diastolic blood pressure 74 mm[Hg] Yarely Dawkins MD Work Phone: [facility] 04-07-2022 14:03-0500 Heart rate 96 /min Yarely Dawkins MD Work Phone: [facility] 04-07-2022 14:03-0500 SaO2% (BldA) [Mass fraction] 97 % Yarely Dawkins MD Work Phone: [facility] 04-07-2022 14:03-0500 Systolic blood pressure 103 mm[Hg] Yarely Dawkins MD Work Phone: [facility] 04-01-2022 13:16-0500 Diastolic blood pressure 90 mm[Hg] Katherine Haagen GENERAL PRODUCTION LABORER.FOOD SERVICE CASHIER Work Phone: [facility] 04-01-2022 13:16-0500 Heart rate 102 /min Katherine Haagen GENERAL PRODUCTION LABORER.FOOD SERVICE CASHIER Work Phone: [facility] 04-01-2022 13:16-0500 Respiratory rate 18 /min Katherine Haagen GENERAL PRODUCTION LABORER.FOOD SERVICE CASHIER Work Phone: [facility] 04-01-2022 13:16-0500 SaO2% (BldA) [Mass fraction] 97 % Katherine Haagen GENERAL PRODUCTION LABORER.FOOD SERVICE CASHIER Work Phone: [facility] 04-01-2022 13:16-0500 Systolic blood pressure 124 mm[Hg] Katherine Haagen GENERAL PRODUCTION LABORER.FOOD SERVICE CASHIER Work Phone: [facility] 02-04-2022 09:39-0500 Heart rate 78 /min Wilver Jones MD Work Phone: [facility] 02-04-2022 09:24-0500 Body height 162.6 cm Wilver Jones MD Work Phone: [facility] 02-04-2022 09:24-0500 Body weight 76.2 kg Wilver Jones MD Work Phone: [facility] 02-04-2022 09:24-0500 Diastolic blood pressure 70 mm[Hg] Wilver Jones MD Work Phone: [facility] 02-04-2022 09:24-0500 SaO2% (BldA) [Mass fraction] 98 % Wilver Jones MD Work Phone: [facility] 02-04-2022 09:24-0500 Systolic blood pressure 110 mm[Hg] Wilver Jones MD Work Phone: [facility] 01-23-2022 11:45-0500 Body weight 76.2 kg NA Edwards PA-C Work Phone: [facility] 01-23-2022 11:45-0500 Diastolic blood pressure 62 mm[Hg] NA Edwards PA-C Work Phone: [facility] 01-23-2022 11:45-0500 Heart rate 102 /min NA Edwards PA-C Work Phone: [facility] 01-23-2022 11:45-0500 Respiratory rate 16 /min NA Edwards PA-C Work Phone: [facility] 01-23-2022 11:45-0500 SaO2% (BldA) [Mass fraction] 98 % NA Edwards PA-C Work Phone: [facility] 01-23-2022 11:45-0500 Systolic blood pressure 124 mm[Hg] NA Edwards PA-C Work Phone: [facility] 01-09-2022 16:01-0500 Body height 162.6 cm Wilver Jones MD Work Phone: [facility] 01-09-2022 16:01-0500 Body weight 77.84 kg Wilver Jones MD Work Phone: [facility] 01-09-2022 16:01-0500 Diastolic blood pressure 68 mm[Hg] Wilver Jones MD Work Phone: [facility] 01-09-2022 16:01-0500 Heart rate 89 /min Wilver Jones MD Work Phone: [facility] 01-09-2022 16:01-0500 SaO2% (BldA) [Mass fraction] 97 % Wilver Jones MD Work Phone: [facility] 01-09-2022 16:01-0500 Systolic blood pressure 118 mm[Hg] Wilver Jones MD Work Phone: [facility] 01-06-2022 17:49-0500 Diastolic blood pressure 82 mm[Hg] Dr. Wilver Jones Work Phone: [facility] Work Phone: 01-06-2022 17:49-0500 Heart rate 89 /min Dr. Wilver Jones Work Phone: [facility] Work Phone: 01-06-2022 17:49-0500 Respiratory rate 12 /min Dr. Wilver Jones Work Phone: [facility] Work Phone: 01-06-2022 17:49-0500 SaO2% (BldA) [Mass fraction] 100 % Dr. Wilver Jones Work Phone: [facility] Work Phone: 01-06-2022 17:49-0500 Systolic blood pressure 127 mm[Hg] Dr. Wilver Jones Work Phone: [facility] Work Phone: 01-06-2022 14:56-0500 Body height 162.[address] Wilver Jones Work Phone: [facility] Work Phone: 01-06-2022 14:56-0500 Body mass index (BMI) [Ratio] 29.2 kg/m2 Dr. Wilver Jones Work Phone: [facility] Work Phone: 01-06-2022 14:56-0500 Body temperature 97.1 [degF] Dr. Wilver Jones Work Phone: [facility] Work Phone: 01-06-2022 14:56-0500 Body weight 77.[address] Wilver Jones Work Phone: [facility] Work Phone: 01-02-2022 16:08-0500 Body temperature 98.2 [degF] Dr. Wilver Jones Work Phone: [facility] Work Phone: 01-02-2022 16:08-0500 Diastolic blood pressure 98 mm[Hg] Dr. Wilver Jones Work Phone: [facility] Work Phone: 01-02-2022 16:08-0500 Heart rate 90 /min Dr. Wilver Jones Work Phone: [facility] Work Phone: 01-02-2022 16:08-0500 Respiratory rate 20 /min Dr. Wilver Jones Work Phone: [facility] Work Phone: 01-02-2022 16:08-0500 SaO2% (BldA) [Mass fraction] 99 % Dr. Wilver Jones Work Phone: [facility] Work Phone: 01-02-2022 16:08-0500 Systolic blood pressure 142 mm[Hg] Dr. Wilver Jones Work Phone: [facility] Work Phone: 12-20-2021 04:10-0400 Body height 162.56 cm [facility] Work Phone: 12-20-2021 04:10-0400 Body mass index (BMI) [Ratio] 29.9 kg/m2 [facility] Work Phone: 12-20-2021 04:10-0400 Body temperature 97.9 [degF] [facility] Work Phone: 12-20-2021 04:10-0400 Body weight 79.1 kg [facility] Work Phone: 12-20-2021 04:10-0400 Diastolic blood pressure 82 mm[Hg] [facility] Work Phone: 12-20-2021 04:10-0400 Heart rate 77 /min [facility] Work Phone: 12-20-2021 04:10-0400 Respiratory rate 18 /min [facility] Work Phone: 12-20-2021 04:10-0400 SaO2% (BldA) [Mass fraction] 99 % [facility] Work Phone: 12-20-2021 04:10-0400 Systolic blood pressure 127 mm[Hg] [facility] Work Phone: 09-29-2021 13:34-0400 Diastolic blood pressure 82 mm[Hg] Katherine Haagen GENERAL PRODUCTION LABORER.FOOD SERVICE CASHIER Work Phone: [facility] 09-29-2021 13:34-0400 Heart rate 113 /min Katherine Haagen GENERAL PRODUCTION LABORER.FOOD SERVICE CASHIER Work Phone: [facility] 09-29-2021 13:34-0400 Respiratory rate 18 /min Katherine Haagen GENERAL PRODUCTION LABORER.FOOD SERVICE CASHIER Work Phone: [facility] 09-29-2021 13:34-0400 SaO2% (BldA) [Mass fraction] 97 % Katherine Haagen GENERAL PRODUCTION LABORER.FOOD SERVICE CASHIER Work Phone: [facility] 09-29-2021 13:34-0400 Systolic blood pressure 118 mm[Hg] Katherine Haagen GENERAL PRODUCTION LABORER.FOOD SERVICE CASHIER Work Phone: [facility] 08-20-2021 10:45-0400 Body weight 76.2 kg Katherine Haagen GENERAL PRODUCTION LABORER.FOOD SERVICE CASHIER Work Phone: [facility] 08-20-2021 10:45-0400 Diastolic blood pressure 70 mm[Hg] Katherine Haagen GENERAL PRODUCTION LABORER.FOOD SERVICE CASHIER Work Phone: [facility] 08-20-2021 10:45-0400 Heart rate 104 /min Katherine Haagen GENERAL PRODUCTION LABORER.FOOD SERVICE CASHIER Work Phone: [facility] 08-20-2021 10:45-0400 Respiratory rate 18 /min Katherine Haagen GENERAL PRODUCTION LABORER.FOOD SERVICE CASHIER Work Phone: [facility] 08-20-2021 10:45-0400 SaO2% (BldA) [Mass fraction] 99 % Katherine Lozano GENERAL PRODUCTION LABORER.FOOD SERVICE CASHIER Work Phone: [facility] 08-20-2021 10:45-0400 Systolic blood pressure 100 mm[Hg] Katherine Lozano GENERAL PRODUCTION LABORER.FOOD SERVICE CASHIER Work Phone: [facility] 10-08-2016 12:05-0400 BMI (Body Mass Index) 29.62 kg/m2 Natalya Griffith LPN [facility] Work Phone: 10-08-2016 12:05-0400 Body Temperature 99 [degF] Natalya Griffith [facility] Work Phone: 10-08-2016 12:05-0400 BP Diastolic 64 mm[Hg] Natalya Griffith LPN [facility] Work Phone: 10-08-2016 12:05-0400 BP Systolic 124 mm[Hg] Natalya Griffith LPN [facility] Work Phone: 10-08-2016 12:05-0400 Height 162.56 cm Natalya Griffith LPN [facility] Work Phone: 10-08-2016 12:05-0400 Pulse (Heart Rate) 102 /min Natalya Griffith LPN [facility] Work Phone: 10-08-2016 12:05-0400 Respiratory Rate 12 /min [facility] Work Phone: 10-08-2016 12:05-0400 Weight 78.29 kg [facility] Work Phone: Encounters Encounter Date Encounter Type Care Provider Facility Start: 12-11-2024 End: 12-11-2024 ambulatory KATHERINEWinnie LOZANO Facility:[facility] Start: 12-06-2024 End: 12-06-2024 ambulatory PATTI CAM Facility:[facility] Start: 11-22-2024 ambulatory WILVER JONES Facility :[facility] Start: 11-15-2024 End: 11-15-2024 ambulatory KATHERINE LOZANO Facility:[facility] Start: 11-14-2024 End: 11-14-2024 ambulatory [facility] Facility:[facility] Start: 11-14-2024 Encounter for genera l adult medical examination without abnormal findings KATHERINE [facility] Start: 11-01-2024 End: 11-01-2024 Telephone encounter Wilver Jones MD Work Phone: [facility] [place] Comment on above: Letter (No Show #1) Start: 10-12-2024 End: 10-12-2024 Refill Wilver Jones MD Work Phone: [facility] Comment on above: Refill Request Start: 09-19-2024 End: 10-20-2024 ambulatory Wilver Jones MD Work Phone: [facility] [place] Start: 09-04-2024 End: 09-04-2024 Emergency department patient visit Dr. Wilver Jones MD Work Phone: -Emergency Department Work Phone: Start: 06-04-2024 End: 06-04-2024 Patient encounter procedure Temo Goss [facility] Work Phone: Start: 06-04-2024 End: 06-04-2024 ambulatory [facility] Facility:[facility] Start: 05-28-2024 End: 05-28-2024 ambulatory WILVER Tigist KAREN Facility:[facility] Start: 05-28-2024 End: 05-28-2024 Patient encounter procedure Paul SKY Work Phone: [facility] Comment on above: Sore throat (Primary Dx); Bilateral impacted cerumen; URI, acute Start: 05-10-2024 End: 05-10-2024 ambulatory Lilibeth Pino RN NURSE DIRECTOR PART Comment on above: Chest Pain Start: 05-08-2024 End: 05-08-2024 Refill Wilver Jones MD Work Phone: [facility] Comment on above: Refill Request Start: 04-04-2024 End: 04-04-2024 ambulatory [facility] [place] CATHERINE Work Phone: [facility] Comment on above: COVID-19 (Primary Dx ) Start: 04-04-2024 End: 04-04-2024 Telemedicine consultation with patient Katherine Lozano DORON.FOOD SERVICE CASHIER Work Phone: [facility] Start: 03-23-2024 End: 03-23-2024 Refill Wilver Jones MD Work Phone: [facility] Comment on above: Refill Request Start: 12-27-2023 End: 12-27-2023 ambulatory Hamzah Nicolas Facility:[facility] Start: 11-15-2023 End: 11-15-2023 ambulatory Bal Yuan Facility:[facility] Start: 11-09-2023 End: 11-09-2023 Refill Wilver Jones MD Work Phone: [facility] Comment on above: Refill Request Start: 10-19-2023 End: 10-19-2023 Patient encounter procedure Wilver Jones MD Work Phone: [facility] Comment on above: Mixed hyperlipidemia (Primary Dx); Gastroesophageal reflux disease, unspecified whether esophagitis present; Anxiety with depression; Tarsal tunnel syndrome of right side; Foot pain, right; Neuropathy of right peroneal nerve; Encounter for screening mammogram for malignant neoplasm of breast; Vitamin D deficiency Start: 10-19-2023 End: 10-20-2023 Telephone encounter Wilver Jones MD Work Phone: [address] [place] [address] Comment on above: Orders Start: 09-15-2023 End: 09-15-2023 Patient encounter procedure Lorena Warner APRN.FOOD SERVICE CASHIER Work Phone: [facility] Comment on above: Dizziness (Primary D x) Start: 09-15-2023 ambulatory Wilver Jones MD Work Phone: [facility] Comment on above: Dizziness Start: 09-03-2023 Refill Wilver Jones MD Work Phone: [facility] Comment on above: Refill Request Start: 08-03-2023 End: 08-03-2023 ambulatory WILVER JONES MD Facility:B Start: 08-03-2023 Telephone encounter Jennifer rothman GENERAL PRODUCTION LABORER.FOOD SERVICE CASHIER Work Phone: [facility] Comment on above: Results Start: 08-02-2023 End: 08-02-2023 Office outpatient visit 25 minutes Johnathan Chavez APRN.FOOD SERVICE CASHIER Work Phone: [facility] Comment on above: Urinary frequency (P rimary Dx) Start: 07-19-2023 End: 07-19-2023 Patient encounter procedure Wilver Jones MD Work Phone: [facility] [place] Comment on above: Tarsal tunnel syndro me of right side (Primary Dx); Gastroesophageal reflux disease, unspecified whether esophagitis present; Anxiety with depression; Neuropathy of right peroneal nerve Start: 06-30-2023 Admission to [facility] Luis Angel Lopez MD Work Phone: General Surgery Comment on above: Prilosec Refill Request Start: 06-30-2023 ambulatory Luis Angel be MD Work Phone: General Surgery Start: 06-09-2023 Telephone encounter Wilver Jones MD Work Phone: [facility] [place] Comment on above: Letter Start: 06-09-2023 End: 06-09-[address] Wilver Jones Work Phone: [facility] Work Phone: Start: 06-09-2023 End: 06-09-[address] Wilver Jones Work Phone: [facility]-Physical Therapy Work Phone: Start: 05-27-2023 ambulatory Wilver Jones MD Work Phone: [facility] Comment on above: Answers Start: 05-13-2023 Refill Luis Angel be MD Work Phone: Ambulatory Surgery Comment on above: Refill Request Start: 05-11-2023 Non-patient / Non-visit Dr. Padmini Jones Work Phone: [facility] Start: 05-11-2023 End: 05-11-[address] Wilver Jones Work Phone: [facility] Work Phone: Start: 05-11-2023 End: 05-11-[address] Wilver Jones Work Phone: [facility]-Pulmonary Services/Neurology Work Phone: Start: 05-07-2023 End: 05-07-2023 Patient encounter procedure Wilver Jones MD Work Phone: [facility] Comment on above: Bacterial sinusitis (Primary Dx); Foot pain, right; Sciatica, right side; Lymphadenopathy, cervical; History of otitis Start: 05-05-[address] Fredy Jones Work Phone: [facility]-Physical Therapy Work Phone: Start: 05-02-2023 End: 05-02-2023 Emergency department patient visit [facility]-Emergency Department Work Phone: Start: 04-28-2023 End: 04-28-2023 ambulatory [facility] Work Phone: Start: 04-28-2023 End: 04-28-2023 Patient encounter procedure [facility]-Radiology, [facility] Work Phone: Start: 04-26-2023 Registered Recurring [facility]-Physical Therapy Work Phone: Start: 04-08-2023 End: 04-08-2023 Patient encounter procedure Arnoldo Mccloud MD Work Phone: [facility] Comment on above: Right acute suppurat rhys otitis media (Primary Dx); Bilateral impacted cerumen Start: 03-29-2023 Telephone encounter Wilver Jones MD Work Phone: [facility] Comment on above: Forms (Office of Pro secuting Director Of Advertising Sales, 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, [facility]) Start: 03-26-2023 ambulatory Wilver Jones MD Work Phone: Family [facility] Comment on above: Covid test Start: 03-25-2023 End: 03-25-2023 ambulatory Wilver Jones MD Work Phone: Family Medicine [facility] Comment on above: Pain in both feet (P rimary Dx) Start: 03-25-2023 End: 03-25-2023 Telemedicine consultation with patient Wilver Jones MD Work Phone: [facility] Start: 03-24-2023 Telephone encounter Wilver Jones MD Work Phone: [facility] Comment on above: Appointment Start: 03-23-2023 End: 03-23-2023 Office outpatient visit 10 minutes Clover Martin APRN.NAVIGATION TEACHER Work Phone: [facility] Comment on above: Foot pain, bilateral (Primary Dx) Start: 01-14-2023 Telephone encounter Wilver Jones MD Work Phone: Pulmonology [facility] Comment on above: Results Start: 01-13-2023 End: 01-13-2023 Patient encounter procedure Wilver Jones MD Work Phone: [facility] Comment on above: Mixed hyperlipidemia (Primary Dx); Gastroesophageal reflux disease, unspecified whether esophagitis present; Anxiety with depression; Vitamin D deficiency; Need for hepatitis C screening test; Screening for HIV (human immunodeficiency virus) Start: 01-05-2023 End: 01-05-2023 ambulatory [facility] Work Phone: Start: 01-05-2023 End: 01-05-2023 Discharged Recurring [facility]-Physical Therapy Work Phone: Start: 12-25-2022 End: 12-25-2022 Patient encounter procedure Luis Angel Lopez MD Work Phone: General Surgery Comment on above: Diarrhea, unspecifie d type (Primary Dx); Gastroesophageal reflux disease without esophagitis; Rectal bleeding Start: 12-25-2022 End: 12-21-2023 Telephone encounter Luis Angel Lopez MD Work Phone: General Surgery Comment on above: 02/23/2023 COLON/EGD A SC Start: 12-11-2022 Refill Wilver Jones MD Work Phone: [facility] Comment on above: Refill Request Start: 11-03-2022 End: 11-03-2022 Patient encounter procedure Wilver Jones MD Work Phone: [facility] Comment on above: GERD without esophag itis (Primary Dx) Start: 10-23-2022 End: 10-23-2022 Admission to same day surgery center [facility]-Surgical Day Care Start: 10-23-2022 End: 10-23-2022 [facility] Work Phone: Start: 10-14-2022 Telephone encounter Wilver Jones MD Work Phone: [facility] Comment on above: Results Start: 10-13-2022 End: 10-13-2022 Orders Only Wilver Jones MD Work Phone: [facility] Comment on above: Abnormal mammogram ( Primary Dx) Abnormal mammogram [ R92.8] Start: 10-12-2022 End: 10-12-2022 Patient encounter procedure Katherine Lozano APRN.FOOD SERVICE CASHIER Work Phone: [facility] Comment on above: Preop examination (P rimary Dx); Plantar fasciitis Start: 10-12-2022 End: 10-12-2022 Preprocedural examination done Katherine Lozano APRN.FOOD SERVICE CASHIER Work Phone: [facility] Work Phone: Start: 10-06-2022 Telephone encounter Wilver Jones MD Work Phone: [facility] Comment on above: Medical Clearance (F oot surgery) Start: 09-01-2022 End: 09-01-2022 Patient encounter procedure Klaudia Cobb APRN.FOOD SERVICE CASHIER Work Phone: OB/Gynecology Comment on above: Surveillance of prev iously prescribed intrauterine contraceptive device (Primary Dx); Intertrigo; Breast tenderness in female Start: 08-19-2022 End: 08-19-2022 [facility] Work Phone: Start: 08-19-2022 End: 08-19-2022 Discharged Recurring [facility]-Physical Therapy Work Phone: Start: 07-27-2022 End: 07-27-2022 Subsequent hospital visit by physician [facility] Work Phone: Radiology Comment on above: Dysmenorrhea [N94.6] Start: 07-22-2022 ambulatory WILVER JONES Facility :[facility] Start: 07-22-2022 End: 07-22-2022 Subsequent hospital visit by physician [facility] Work Phone: Molecular Imaging Comment on above: Other chest pain [R0 7.89] Start: 07-21-2022 Telephone encounter Huma ledbetter RN Cardiology Lab Comment on above: Reminder Call Start: 07-16-2022 Telephone encounter Wilver Jones MD Work Phone: [facility] [place] Comment on above: Results Start: 07-16-2022 End: 07-16-2022 Emergency department patient visit [facility]-Emergency Department Start: 07-15-2022 Registered Recurring [facility]-Physical Therapy Start: 07-15-2022 End: 07-15-2022 Patient encounter [...] Subsequent hospital visit by physician Screen Mammo [facility] Comment on above: Encounter for screen ing mammogram for malignant neoplasm of breast [Z12.31] Start: 07-10-2022 Registered Recurring [facility]-Physical Therapy Start: 07-06-2022 End: 07-06-2022 ambulatory [facility] Work Phone: Start: 07-06-2022 End: 07-06-2022 Patient encounter procedure [facility] Start: 06-26-2022 End: 06-26-2022 Office outpatient visit 25 minutes Katherine Lozano APRN.FOOD SERVICE CASHIER Work Phone: [facility] Comment on above: Other chest pain (Pr imary Dx); Acute bilateral low back pain without sciatica; ENRIKE (generalized anxiety disorder) Start: 06-24-2022 Telephone encounter Wilver Jones MD Work Phone: [facility] Comment on above: Results Start: 06-22-2022 Telephone encounter Wilver Jones MD Work Phone: [facility] Comment on above: Medication Request Start: 06-13-2022 End: 06-13-2022 Emergency department patient visit [facility]-Emergency Department Start: 06-04-2022 Telephone encounter Wilver Jones MD Work Phone: [facility] Comment on above: Patient Update Start: 06-01-2022 Telephone encounter Wilver Jones MD Work Phone: [facility] Comment on above: Results, Lab Start: 05-28-2022 End: 05-28-2022 Patient encounter procedure Wilver Jones MD Work Phone: [facility] Comment on above: Anxiety with depress ion (Primary Dx); Mixed hyperlipidemia; Vertigo; Myalgias; Plantar fasciitis; Elevated blood pressure reading without diagnosis of hypertension Start: 05-18-2022 Telephone encounter Elodia Sandoval APRN.FOOD SERVICE CASHIER Work Phone: [facility] Comment on above: Results Start: 05-16-2022 End: 05-16-2022 Patient encounter procedure Jennifer Saldivar APRN.FOOD SERVICE CASHIER Work Phone: [facility] Comment on above: Dysuria (Primary Dx) ; Itching in the vaginal area Start: 04-17-2022 Telephone encounter Katherine wagner APRN.FOOD SERVICE CASHIER Work Phone: [facility] Comment on above: fax PT order [facility] Start: 04-07-2022 End: 04-07-2022 Patient encounter procedure Yarely Dawkins MD Work Phone: Allergy Comment on above: Pruritic disorder (P rimary Dx); Dermatographic urticaria; Chronic rhinitis; Postnasal drip Start: 04-01-2022 ambulatory Wilver Jones MD Work Phone: Internal Medicine [place] Start: 04-01-2022 End: 04-01-2022 Office outpatient visit 15 minutes Katherine Lozano APRN.CNP Work Phone: [facility] Comment on above: Eustachian tube diso rder, left (Primary Dx); Dermatographic urticaria; Itching; Dizziness; Bilateral impacted cerumen Start: 03-26-2022 ambulatory Valeria Noriega MA [facility] Comment on above: Population Health Na vigation Outreach (FORMERLY [facility] Medicaid Project/) Start: 02-04-2022 End: 02-04-2022 Patient encounter procedure Wilver Jones MD Work Phone: [facility] Comment on above: Vertigo (Primary Dx) ; Gastroesophageal reflux disease, unspecified whether esophagitis present; Bipolar affective disorder, remission status unspecified ([facility]) Start: 01-28-2022 End: 01-28-2022 ambulatory Jennifer Lopez [facility] Physical Therapy Comment on above: Vertigo (Primary Dx) Start: 01-28-2022 Follow-up encounter Sherwin Edwards PA-C Work Phone: [facility] Comment on above: Vertigo follow up Start: 01-23-2022 End: 01-23-2022 Patient encounter procedure Sherwin Edwards PA-C Work Phone: [facility] Comment on above: Chronic vertigo (Keshia elaine Dx); Tinnitus of right ear Start: 01-16-2022 Telephone encounter Wilver Jones MD Work Phone: [facility] Comment on above: Forms Start: 01-09-2022 End: 01-09-2022 Patient encounter procedure Wilver Jones MD Work Phone: [facility] Comment on above: Vertigo (Primary Dx) Start: 01-06-2022 End: 01-06-2022 Emergency department patient visit Dr. Wilver Jones Work Phone: [facility]-Emergency Department Start: 01-02-2022 End: 01-02-[address] Wilver Jones Work Phone: [facility] Start: 12-20-2021 End: 12-20-2021 [facility] Start: 09-29-2021 End: 09-29-2021 Office outpatient visit 15 minutes Katherine Lozano APRN.FOOD SERVICE CASHIER Work Phone: [facility] Comment on above: Dermatographic urtic aria (Primary Dx) Start: 08-27-2021 Telephone encounter Wilver Jones MD Work Phone: [facility] Comment on above: Vaginal Problem Start: 08-20-2021 End: 08-20-2021 Patient encounter procedure Katherine Lozano APRN.FOOD SERVICE CASHIER Work Phone: [facility] Comment on above: ENRIKE (generalized anx iety disorder) (Primary Dx) Start: 05-15-2021 ambulatory Hugh Paulino ms PA-C Work Phone: [facility] [place] Comment on above: Lumbar MRI scan janett ed Start: 05-15-2021 E-mail encounter steven m caregiver Hugh NUNEZC Work Phone: [facility] Procedures Date Procedure Procedure Detail Performing Clinician Start: 05-28-2024 Removal impacted cer umen irrigation/lvg unilat Paul Greenwood PA Work Phone: Start: 05-28-2024 STREP A MOLECULAR (POC) Paul Greenwood PA Work Phone: Start: 05-02-2023 Streptococcus pyogen es rRNA assay Start: 05-02-2023 CT of soft tissues o f neck with contrast Start: 04-28-2023 X-ray of lumbosacral spine Start: 03-02-2023 Colonoscopy Clover Martin APRN.NAVIGATION TEACHER Work Phone: Start: 10-23-2022 Fasciotomy of foot Start: 10-13-2022 Us breast uni real t kamron with image limited Wilver Jones MD Work Phone: Start: 10-13-2022 Mammography Wilver Nuñez MD Work Phone: Start: 07-27-2022 Us transvaginal Klaudia Farhan dillan GENERAL PRODUCTION LABORER.FOOD SERVICE CASHIER Work Phone: Start: 07-22-2022 Non-HEU TC-99M add-on/dose Katherine Lozano GENERAL PRODUCTION LABORER.FOOD SERVICE CASHIER Work Phone: Start: 07-15-2022 End: 07-15-2022 Mammography Wilver Jones MD Work Phone: Start: 07-06-2022 MRI of joint of lowe r extremity Start: 06-13-2022 Plain chest X-ray Start: 05-16-2022 Urnls dip stick/tabl et rgnt auto w/o microscopy Jennifer Saldivar GENERAL PRODUCTION LABORER.FOOD SERVICE CASHIER Work Phone: Start: 08-16-2020 Adult depression scr eening assessment Hugh Stevens PA-C Work Phone: Start: 10-08-2016 End: 10-08-2016 Kenalog per 10 mg Mart SKY Work Phone: Plan of Treatment Date Care Activity Detail Author Start: 03-02-2033 Screening for malign ant neoplasm of colon [facility] Start: 03-12-2030 Urine microalbumin profile DTaP,Tdap,Td Vaccine (10 - Td or Tdap) [facility] Start: 07-16-2027 HPV TESTING HPV TESTING [facility] Start: 07-16-2027 PAP TESTING PAP TESTING [facility] Start: 07-16-2027 Screening for malign ant neoplasm of cervix [facility] Start: 11-14-2024 End: 11-14-2024 Patient encounter procedure 11/14/2024 10:40 AM EDT Office Visit [facility] [place] [address] [place], [place] [id number] Wilver Jones MD [address] [facility] [place] [id number] physical [facility] [place] Comment on above: physical Start: 11-01-2024 End: 11-01-2024 Patient encounter procedure 11/01/2024 10:40 AM EDT Office Visit [facility] [place] [address] [place] [address] Wilver Jones MD [address] [place], [place] [id number] yearly [facility] [place] Comment on above: yearly Start: 10-18-2024 Covid-19 Vaccine () Covid-19 Vaccine () [facility] Comment on above: Postponed from 10/16 (Declined at this time) Start: 10-18-2024 Covid-19 Vaccine () Covid-19 Vaccine () [facility] Comment on above: Postponed from 10/16 (Declined at this time) Start: 09-04-2024 [facility] Start: 01-14-2024 Covid-19 Vaccine () Covid-19 Vaccine () [facility] Comment on above: Postponed from 10/16 (Declined at this time) Start: 01-14-2024 Hepatitis B Vaccine (2 of 3 - 3-dose series) Hepatitis B Vaccine (2 of 3 - 3-dose series) [facility] Comment on above: Postponed from 10/31 (Declined at this time) Start: 01-14-2024 Pneumococcal vaccination [facility] Comment on above: Postponed from 02/16 (Declined at this time) Start: 10-19-2023 End: 10-19-2023 Patient encounter procedure 10/19/2023 2:40 PM EDT Office Visit Family [facility] [address] [place], [place] [address] Wilver Jones MD [address] [place], [place] [id number] 3 month follow up Family [facility] Comment on above: 3 month follow up Start: 10-19-2023 End: 01-18-2024 25-hydroxyvitamin D3 [Mass/volume] in Serum or Plasma VITAMIN D 25 HYDROXY Lab Routine Vitamin D deficiency Expected: 10/19/2023, Expires: 01/18/2024 [facility] Comment on above: Expected: 10/19/2023 , Expires: 01/18/2024 Start: 10-19-2023 End: 01-18-2024 CBC W Auto Differential panel - Blood COMPLETE BLOOD COUNT AND DIFFERENTIAL Lab Routine Anxiety with depression Expected: 10/19/2023, Expires: 01/18/2024 [facility] Comment on above: Expected: 10/19/2023 , Expires: 01/18/2024 Start: 10-19-2023 End: 01-18-2024 Comprehensive metabolic 2000 panel - Serum or Plasma COMPREHENSIVE METABOLIC PANEL Lab Routine Mixed hyperlipidemia Expected: 10/19/2023, Expires: 01/18/2024 [facility] Comment on above: Expected: 10/19/2023 , Expires: 01/18/2024 Start: 10-19-2023 End: 01-18-2024 Lipid 1996 panel - Serum or Plasma LIPID PANEL BASIC Lab Routine Mixed hyperlipidemia Expected: 10/19/2023, Expires: 01/18/2024 [facility] Comment on above: Expected: 10/19/2023 , Expires: 01/18/2024 Start: 10-17-2023 Influenza vaccination [facility] Start: 10-14-2023 Mammography [facility] Start: 10-14-2023 Screening for malign ant neoplasm of breast Mammogram Screening [facility] Start: 08-15-2023 Influenza vaccination Influenza Vacc ine (#1) [facility] Comment on above: Postponed from 10/16 (Declined at this time) Start: 07-19-2023 End: 07-19-2023 Patient encounter procedure 07/19/2023 2:40 PM EDT Office Visit Family [facility] [address] [place] [address] Wilver Jones MD [address] [place] [id number] 6 month follow up Family [facility] Comment on above: 6 month follow up Start: 07-16-2023 Mammography MAMMOGRAM [facility] Start: 05-02-2023 [facility] Start: 04-15-2023 End: 11-12-2023 ANSELMO DIAGNOSTIC RIGHT ANSELMO DIAGNOSTIC RIGHT Radiology Routine Abnormal mammogram Expected: 04/15/2023, Expires: 11/12/2023 [facility] Work Phone: Comment on above: Expected: 04/15/2023 , Expires: 11/12/2023 Start: 04-15-2023 End: 11-12-2023 US BREAST LTD RIGHT US BREAST LTD RIGHT Radiology Routine Abnormal mammogram Expected: 04/15/2023, Expires: 11/12/2023 [facility] Work Phone: Comment on above: Expected: 04/15/2023 , Expires: 11/12/2023 Start: 02-25-2023 End: 01-14-2024 25-hydroxyvitamin D3 [Mass/volume] in Serum or Plasma VITAMIN D 25 HYDROXY Lab Routine Vitamin D deficiency Expected: 02/25/2023, Expires: 01/14/2024 [facility] Work Phone: Comment on above: Expected: 02/25/2023 , Expires: 01/14/2024 Start: 01-13-2023 End: 04-14-2023 25-hydroxyvitamin D3 [Mass/volume] in Serum or Plasma [facility] Work Phone: Comment on above: Expected: 01/13/2023 , Expires: 04/14/2023 Start: 01-13-2023 End: 04-14-2023 Hepatitis C virus Ab [Presence] in Serum [facility] Work Phone: Comment on above: Expected: 01/13/2023 , Expires: 04/14/2023 Start: 01-13-2023 End: 04-14-2023 HIV 1+2 Ab [Presence] in Serum or Plasma by Immunoassay [facility] Work Phone: Comment on above: Expected: 01/13/2023 , Expires: 04/14/2023 Start: 10-23-2022 Patient discharge [facility] Start: 10-23-2022 Fluoroscopic guidance O.R. Fluoro fo r C-Arm [facility] Start: 10-23-2022 Radiography of foot Foot 2 Views [facility] Start: 10-23-2022 Anesthesia arthrosco pic procedure ankle & foot ANESTH ANKLE/FT ARTHROSCOPY [facility] Start: 10-23-2022 Endoscopic plantar fasciotomy SCOPE PLANTAR FASCIOTOMY [facility] Start: 10-16-2022 Covid-19 Vaccine () Covid-19 Vaccine () [facility] Start: 10-16-2022 Influenza vaccination [facility] Start: 08-05-2022 End: 06-24-2023 25-hydroxyvitamin D3 [Mass/volume] in Serum or Plasma VITAMIN D 25 HYDROXY Lab Routine Vitamin D deficiency Expected: 08/05/2022, Expires: 06/24/2023 [facility] Work Phone: Comment on above: Expected: 08/05/2022 , Expires: 06/24/2023 Start: 07-27-2022 End: 09-26-2022 Parathyrin.intact [Mass/volume] in Serum or Plasma PTH INTACT BLD Lab Routine Vitamin D deficiency Expected: 07/27/2022, Expires: 09/26/2022 [facility] Work Phone: Comment on above: Expected: 07/27/2022 , Expires: 09/26/2022 Start: 07-15-2022 End: 07-16-2023 PELVIC US I PELVIC US I Anc Imaging Routine Dysmenorrhea Expected: 07/15/2022, Expires: 07/16/2023 [facility] Work Phone: Comment on above: Expected: 07/15/2022 , Expires: 07/16/2023 Start: 06-24-2022 End: 08-24-2022 Parathyrin.intact [Mass/volume] in Serum or Plasma PTH INTACT BLD Lab Routine Vitamin D deficiency Expected: 06/24/2022, Expires: 08/24/2022 [facility] Work Phone: Comment on above: Expected: 06/24/2022 , Expires: 08/24/2022 Start: 06-01-2022 End: 06-02-2023 25-hydroxyvitamin D3 [Mass/volume] in Serum or Plasma VITAMIN D 25 HYDROXY Lab Routine Hyperglycemia Hypercalcemia Expected: 06/01/2022, Expires: 06/02/2023 [facility] Work Phone: Comment on above: Expected: 06/01/2022 , Expires: 06/02/2023 Start: 06-01-2022 End: 06-02-2023 Calcium.ionized [Moles/volume] in Blood CALCIUM IONIZED BLOOD Lab Routine Hyperglycemia Hypercalcemia Expected: 06/01/2022, Expires: 06/02/2023 [facility] Work Phone: Comment on above: Expected: 06/01/2022 , Expires: 06/02/2023 Start: 06-01-2022 End: 08-01-2022 Hemoglobin A1c in Blood HGB A1C Lab Routine Hyperglycemia Hypercalcemia Expected: 06/01/2022, Expires: 08/01/2022 [facility] Work Phone: Comment on above: Expected: 06/01/2022 , Expires: 08/01/2022 Start: 06-01-2022 End: 06-02-2023 Parathyrin.intact [Mass/volume] in Serum or Plasma PTH INTACT BLD Lab Routine Hyperglycemia Hypercalcemia Expected: 06/01/2022, Expires: 06/02/2023 [facility] Work Phone: Comment on above: Expected: 06/01/2022 , Expires: 06/02/2023 Start: 05-29-2022 End: 05-29-2023 AMY BY IFA SCREEN AMY BY IFA SCREEN Lab Routine Myalgias Expected: 05/29/2022, Expires: 05/29/2023 [facility] Work Phone: Comment on above: Expected: 05/29/2022 , Expires: 05/29/2023 Start: 05-29-2022 End: 05-29-2023 C reactive protein [Mass/volume] in Serum or Plasma C-REACTIVE PROTEIN (CRP) Lab Routine Myalgias Expected: 05/29/2022, Expires: 05/29/2023 [facility] Work Phone: Comment on above: Expected: 05/29/2022 , Expires: 05/29/2023 Start: 05-29-2022 End: 05-29-2023 CBC W Auto Differential panel - Blood CBC + DIFF Lab Routine Anxiety with depression Expected: 05/29/2022, Expires: 05/29/2023 [facility] Work Phone: Comment on above: Expected: 05/29/2022 , Expires: 05/29/2023 Start: 05-29-2022 End: 05-29-2023 Comprehensive metabolic 2000 panel - Serum or Plasma COMP METABOLIC PANEL Lab Routine Mixed hyperlipidemia Expected: 05/29/2022, Expires: 05/29/2023 [facility] Work Phone: Comment on above: Expected: 05/29/2022 , Expires: 05/29/2023 Start: 05-29-2022 End: 05-29-2023 Erythrocyte sedimentation rate SED RATE WESTERGREN Lab Routine Myalgias Expected: 05/29/2022, Expires: 05/29/2023 [facility] Work Phone: Comment on above: Expected: 05/29/2022 , Expires: 05/29/2023 Start: 05-29-2022 End: 05-29-2023 Rheumatoid factor [Units/volume] in Serum or Plasma RHEUMATOID FACTOR BL Lab Routine Myalgias Expected: 05/29/2022, Expires: 05/29/2023 [facility] Work Phone: Comment on above: Expected: 05/29/2022 , Expires: 05/29/2023 Start: 05-29-2022 End: 07-29-2022 Thyrotropin [Units/volume] in Serum or Plasma TSH BLD Lab Routine Mixed hyperlipidemia Expected: 05/29/2022, Expires: 07/29/2022 [facility] Work Phone: Comment on above: Expected: 05/29/2022 , Expires: 07/29/2022 Start: 05-28-2022 End: 07-28-2022 LIPID PANEL, NONFASTING LIPID PANEL, NONFASTING Lab Routine Mixed hyperlipidemia Expected: 05/28/2022, Expires: 07/28/2022 [facility] Work Phone: Comment on above: Expected: 05/28/2022 , Expires: 07/28/2022 Start: 05-16-2022 End: 07-16-2022 Bacteria identified in Urine by Culture URINE CULTURE Microbiology Routine Dysuria Expected: 05/16/2022, Expires: 07/16/2022 [facility] Work Phone: Comment on above: Expected: 05/16/2022 , Expires: 07/16/2022 Start: 04-07-2022 End: 06-07-2022 ALGN INHALANTS GROUP ALGN INHALANTS GROUP Lab Routine Dermatographic urticaria Pruritic disorder Expected: 04/07/2022, Expires: 06/07/2022 [facility] Work Phone: Comment on above: Expected: 04/07/2022 , Expires: 06/07/2022 Start: 04-07-2022 End: 06-07-2022 CBC W Auto Differential panel - Blood CBC + DIFF Lab Routine Dermatographic urticaria Pruritic disorder Expected: 04/07/2022, Expires: 06/07/2022 [facility] Work Phone: Comment on above: Expected: 04/07/2022 , Expires: 06/07/2022 Start: 04-07-2022 End: 06-07-2022 Comprehensive metabolic 2000 panel - Serum or Plasma COMP METABOLIC PANEL Lab Routine Dermatographic urticaria Pruritic disorder Expected: 04/07/2022, Expires: 06/07/2022 [facility] Work Phone: Comment on above: Expected: 04/07/2022 , Expires: 06/07/2022 Start: 04-07-2022 End: 06-07-2022 Erythrocyte sedimentation rate SED RATE WESTERGREN Lab Routine Dermatographic urticaria Pruritic disorder Expected: 04/07/2022, Expires: 06/07/2022 [facility] Work Phone: Comment on above: Expected: 04/07/2022 , Expires: 06/07/2022 Start: 04-07-2022 End: 06-07-2022 house dust mite IgE Ab [Units/volume] in Serum ALGN DERM PTERONYSSINUS IGE Lab Routine Dermatographic urticaria Pruritic disorder Expected: 04/07/2022, Expires: 06/07/2022 [facility] Work Phone: Comment on above: Expected: 04/07/2022 , Expires: 06/07/2022 Start: 04-07-2022 End: 06-07-2022 Thyrotropin [Units/volume] in Serum or Plasma TSH BLD Lab Routine Dermatographic urticaria Pruritic disorder Expected: 04/07/2022, Expires: 06/07/2022 [facility] Work Phone: Comment on above: Expected: 04/07/2022 , Expires: 06/07/2022 Start: 2022 Mammography MAMMOGRAM [facility] Start: 02-15-2022 [facility] Start: 11-02-2021 Urine microalbumin profile [facility] Start: 10-16-2021 Influenza vaccination [facility] Start: 08-16-2021 Adult depression screening assessment DEPRESSION SCREENING [facility] Start: 02-15-2021 DEPRESSION ASSESSMENT [facility] Start: 11-16-2020 COVID-19 VACCINE (3 - Booster for Pfizer series) COVID-19 VACCINE (3 - Booster for Pfizer series) [facility] Start: 08-11-2020 COVID-19 VACCINE (3 - Booster for Pfizer series) COVID-19 VACCINE (3 - Booster for Pfizer series) [facility] Start: 08-11-2020 COVID-19 VACCINE (3 - Pfizer series) COVID-19 VACCINE (3 - Pfizer series) [facility] Start: 06-13-2020 HPV TESTING HPV TESTING [facility] Start: 06-13-2020 PAP TESTING PAP TESTING [facility] Start: 10-08-2016 End: 10-08-2016 Appointment Appointment [facility] Work Phone: Start: 2009 HPV Vaccine (1 - 3-d ose SCDM series) HPV Vaccine (1 - 3-dose SCDM series) [facility] Start: 2001 Pneumococcal vaccination Pneum ococcal Vaccine (1 of 2 - PCV) [facility] Start: 02-17-2000 HEPATITIS C SCREENING HEPATITIS C SC REENING [facility] Start: 02-17-2000 HIV SCREENING HIV SCREENING [facility] Start: 10-31-1998 HEPATITIS B (2 of 3 - 3-dose series) HEPATITIS B (2 of 3 - 3-dose series) [facility] Start: 10-31-1998 Hepatitis B Vaccine (2 of 3 - 3-dose series) Hepatitis B Vaccine (2 of 3 - 3-dose series) [facility] Start: 02-17-1988 PNEUMOCOCCAL (1 - PCV) PNEUMOCOCCAL (1 - PCV) [facility] Start: 02-17-1988 Pneumococcal vaccination Pneum ococcal Vaccine (1 - PCV) [facility] Bacteria identified in Urine by Culture URINE CULTURE Microbiology Routine Urinary frequency 08/02/2023 1:16 PM EDT [facility] Work Phone: End: 12-26-2023 COLONOSCOPY DIAGNOSTIC COLONOSCOPY DIAGNOSTIC Endoscopy Routine Diarrhea, unspecified type Rectal bleeding 1 Occurrences starting 12/25/2022 until 12/26/2023 [facility] Work Phone: Comment on above: 1 Occurrences starti ng 12/25/2022 until 12/26/2023 End: 11-17-2024 DBT Breast - bilateral screening ANSELMO SCREENING [facility] Radiology Routine Encounter for screening mammogram for malignant neoplasm of breast 1 Occurrences starting 10/19/2023 until 11/17/2024 [facility] Work Phone: Comment on above: 1 Occurrences starti ng 10/19/2023 until 11/17/2024 End: 11-18-2024 DBT Breast - bilateral screening ANSELMO SCREENING [facility] Radiology Routine Encounter for screening for malignant neoplasm of breast, unspecified screening modality 1 Occurrences starting 10/20/2023 until 11/18/2024 [facility] Work Phone: Comment on above: 1 Occurrences starti ng 10/20/2023 until 11/18/2024 End: 10-19-2025 DBT Breast - bilateral screening ANSELMO SCREENING [facility] Radiology Routine Encounter for screening mammogram for breast cancer 1 Occurrences starting 09/19/2024 until 10/19/2025 [facility] Work Phone: Comment on above: 1 Occurrences starti ng 09/19/2024 until 10/19/2025 End: 12-26-2023 EGD DIAGNOSTIC EGD DIAGNOSTIC Endoscopy Routine Gastroesophageal reflux disease without esophagitis Diarrhea, unspecified type Rectal bleeding 1 Occurrences starting 12/25/2022 until 12/26/2023 [facility] Work Phone: Comment on above: 1 Occurrences starti ng 12/25/2022 until 12/26/2023 Insertion intrauteri ne device iud INSERT INTRAUTERINE DEVICE Procedures Routine Dysmenorrhea Menstrual migraine without status migrainosus, not intractable Ordered: 07/15/2022 [facility] Work Phone: Comment on above: Ordered: 07/15/2022 End: 08-15-2023 ANSELMO DIAGNOSTIC BILATERAL ANSELMO DIAGNOSTIC BILATERAL Radiology Routine Abnormal mammogram 1 Occurrences starting 07/16/2022 until 08/15/2023 [facility] Work Phone: Comment on above: 1 Occurrences starti ng 07/16/2022 until 08/15/2023 End: 05-01-2023 ANSELMO SCREENING ANSELMO SCREENING Radiology Routine Encounter for screening mammogram for breast cancer 1 Occurrences starting 04/01/2022 until 05/01/2023 [facility] Work Phone: Comment on above: 1 Occurrences starti ng 04/01/2022 until 05/01/2023 End: 08-14-2023 ANSELMO SCREENING [facility] ANSELMO SCREENING [facility] Radiology Routine Encounter for gynecological examination with abnormal finding Encounter for screening mammogram for breast cancer 1 Occurrences starting 07/15/2022 until 08/14/2023 [facility] Work Phone: Comment on above: 1 Occurrences starti ng 07/15/2022 until 08/14/2023 NM CARDIAC PERF STRESS/PHARM NM CARDIAC PERF STRESS/PHARM Radiology Routine Other chest pain Ordered: 06/26/2022 [facility] Work Phone: Comment on above: Ordered: 06/26/2022 PAP TEST PAP TEST Lab Rou jess[facility] Screening for cervical cancer Encounter for gynecological examination with abnormal finding Encounter for screening for human papillomavirus (HPV) 07/15/2022 3:46 PM EDT [facility] Work Phone: Patient Education [facility] Work Phone: Patient referral [facility] Work Phone: PT PLAN OF CARE CERTIFICATION PT PLAN OF CARE CERTIFICATION Procedures Routine Vertigo Ordered: 01/28/2022 [facility] Comment on above: Ordered: 01/28/2022 Removal impacted cer umen instrumentation unilat REMOVAL OF IMPACTED CERUMEN - INSTRUMENTATION Procedures Routine Bilateral impacted cerumen Ordered: 04/02/2022 [facility] Work Phone: Comment on above: Ordered: 04/02/2022 Removal impacted cer umen irrigation/lvg unilat AMBULATORY EAR LAVAGE/IRRIGATION Procedures Routine Bilateral impacted cerumen Ordered: 04/08/2023 [facility] Work Phone: Comment on above: Ordered: 04/08/2023 Removal impacted cer umen irrigation/lvg unilat AMBULATORY EAR LAVAGE/IRRIGATION Procedures Routine Bilateral impacted cerumen Ordered: 05/28/2024 [facility] Work Phone: Comment on above: Ordered: 05/28/2024 UA DIP, URINE (POC) UA DIP, URIN E (POC) Lab Routine Urinary frequency Ordered: 08/02/2023 [facility] Work Phone: Comment on above: Ordered: 08/02/2023 End: 11-18-2024 US Breast - right limited US BREAST LTD RIGHT Radiology Routine Abnormal mammogram 1 Occurrences starting 10/20/2023 until 11/18/2024 [facility] Comment on above: 1 Occurrences starti ng 10/20/2023 until 11/18/2024 End: 08-15-2023 US BREAST LTD LEFT US BREAST LTD LEFT Radiology Routine Abnormal mammogram 1 Occurrences starting 07/16/2022 until 08/15/2023 [facility] Work Phone: Comment on above: 1 Occurrences starti ng 07/16/2022 until 08/15/2023 End: 08-15-2023 US BREAST LTD RIGHT US BREAST LTD RIGHT Radiology Routine Abnormal mammogram 1 Occurrences starting 07/16/2022 until 08/15/2023 [facility] Work Phone: Comment on above: 1 Occurrences starti ng 07/16/2022 until 08/15/2023 End: 08-14-2023 Us transvaginal US FEMALE PELVIS TRANSVAG Radiology Routine Dysmenorrhea 1 Occurrences starting 07/15/2022 until 08/14/2023 [facility] Work Phone: Comment on above: 1 Occurrences starti ng 07/15/2022 until 08/14/2023 [facility] Work Phone: [facility] Immunizations Immunization Date Immunization Notes Care Provider [facility] 03-12-2020 tetanus toxoid, redu nj diphtheria toxoid, and acellular pertussis vaccine, adsorbed [facility] 01-26-2019 tetanus toxoid, redu nj diphtheria toxoid, and acellular pertussis vaccine, adsorbed [facility] 10-08-2016 [id number] Natalya Griffith LPN [facility] nisha Work Phone: 12-02-2015 influenza virus vaccine, unspecified formulation Wilver Jones MD Work Phone: [facility] 11-03-2011 tetanus toxoid, redu nj diphtheria toxoid, and acellular pertussis vaccine, adsorbed Hugh Stevens PA-C Work Phone: [facility] Work Phone: 10-03-1998 diphtheria and tetan us toxoids, adsorbed for pediatric use Hugh Stevens PA-C Work Phone: [facility] Work Phone: 10-03-1998 hepatitis B vaccine, pediatric or pediatric/adolescent dosage Hugh Stevens PA-C Work Phone: [facility] Work Phone: 10-03-1998 hepatitis B vaccine, unspecified formulation Katherine Marta SAL.FOOD SERVICE CASHIER Work Phone: [facility] 05-28-1994 measles, mumps and rubella virus vaccine Hugh Stevens PA-C Work Phone: [facility] Work Phone: 10-31-1987 DTP-Haemophilus influenzae type b conjugate vaccine Hugh Stevens PA-C Work Phone: [facility] Work Phone: 10-31-1987 trivalent poliovirus vaccine, live, oral Hugh Stevens PA-C Work Phone: [facility] Work Phone: 02-24-1984 DTP-Haemophilus influenzae type b conjugate vaccine Hugh Stevens PA-C Work Phone: [facility] Work Phone: 02-24-1984 trivalent poliovirus vaccine, live, oral Hugh Stevens PA-C Work Phone: [facility] Work Phone: 02-24-1984 tuberculin skin test ; purified protein derivative solution, intradermal Wilver Jones MD Work Phone: [facility] 08-21-1983 measles, mumps and rubella virus vaccine Hugh Stevens PA-C Work Phone: [facility] Work Phone: 1982 DTP-Haemophilus influenzae type b conjugate vaccine Hugh Stevens PA-C Work Phone: [facility] Work Phone: 1982 trivalent poliovirus vaccine, live, oral Hugh Stevens PA-C Work Phone: [facility] Work Phone: 1982 DTP-Haemophilus influenzae type b conjugate vaccine Hugh Stevens PA-C Work Phone: [facility] Work Phone: 1982 trivalent poliovirus vaccine, live, oral Hugh Stevens PA-C Work Phone: [facility] Work Phone: 1982 DTP-Haemophilus influenzae type b conjugate vaccine Hugh Stevens PA-C Work Phone: [facility] Work Phone: 1982 trivalent poliovirus vaccine, live, oral Hugh Stevens PA-C Work Phone: [facility] Work Phone: Payers Date Payer Category Payer Self-pay [id number] 2021 Unknown MMO MMO [employer] [id number] 2021-Present [phone] [address] [place] [address] PPO [id number] 2013 Medicaid [employer] [id number] 2013-Present [phone] [address] [place] [address] Medicaid [id number] 2013 Medicaid [id number] 2012 Unknown [id number] 2012 Unknown [employer] [id number] 1982 Unknown [id number] Unknown SELF INS [facility] [id number] Unknown [id number] Unknown [id number] Unknown [id number] Unknown [id number] Unknown [id number] Social History Date Type Detail Facility Start: 09-29-2021 End: 10-19-2023 Tobacco smoking status NHIS Smokes tobacco daily [facility] Work Phone: History of tobacco use Cigarette Smoker [facility] Work Phone: Start: 04-18-2021 End: 05-28-2024 Alcohol intake Current non-drinker of alcohol (finding) [facility] Start: 1980 Sex Assigned At Female C [facility] Start: 04-18-2021 End: 01-09-2022 Exposure to SARS-CoV-2 (event) Not sure [facility] Start: 09-29-2021 End: 06-26-2022 Cigarettes smoked current (pack per day) - Reported 1 [facility] Start: 09-29-2021 End: 10-19-2023 Tobacco use and exposure Smokeless tobacco non-user [facility] Start: 12-20-2021 End: 05-02-2023 Tobacco smoking status MAIS Unknown if ever smoked [facility] Start: 06-26-2022 End: 09-01-2022 Tobacco use panel [facility] Start: 01-17-2012 Adult Depression Screening Assessment 2 [facility] Start: 06-21-2020 Gender identity Identifies as female gender (finding) [facility] Start: 06-21-2020 Sexual orientation Heterosexual (fish flores) [facility] Has the [employer], [employer], [employer], or water [employer] threatened to shut off services in your home in past 12Mo No [facility] Are you now , , , , never or living with a partner? Living with partner [facility] How often to you hav e a drink containing alcohol? Never [facility] How hard is it for y ou to pay for the very basics like food, housing, medical care, and heating Hard [facility] Do you feel stress - tense, restless, nervous, or anxious, or unable to sleep at night because your mind is troubled all the time - these days [OSQ] Very much [facility] (I/We) worried wheth er (my/our) food would run out before (I/we) got money to buy more. Often true [facility] Do you feel stress - tense, restless, nervous, or anxious, or unable to sleep at night because your mind is troubled all the time - these days [OSQ] To some extent [facility] (I/We) worried wheth er (my/our) food would run out before (I/we) got money to buy more. Sometimes true [facility] NEGATED: Highlighted row [facility] Goals Date Patient Goal Desired Activity /State Functional Status Date Assessment Result Facility 04-04-2024 Total score [AUDIT-C] 0 04/04/19 25 11:08 AM EST User, Kasia [facility] 04-04-2024 Within the last year , have you been humiliated or emotionally abused in other ways by your partner or ex-partner? No 04/04/2024 11:08 AM EST User, [email or web address] [facility] 04-04-2024 Within the last year , have you been afraid of your partner or ex-partner? No 04/04/2024 11:08 AM EST User, Mychart [facility] 04-04-2024 Within the last year , have you been raped or forced to have any kind of sexual activity by your partner or ex-partner? No 04/04/2024 11:08 AM EST User, Mychart [facility] 04-04-2024 Within the last year , have you been kicked, hit, slapped, or otherwise physically hurt by your partner or ex-partner? No 04/04/2024 11:08 AM EST User, Mychart [facility] 04-04-2024 How often to you hav e a drink containing alcohol? Never 04/04/2024 11:08 AM EST UserKasia Never [facility] 04-04-2024 Functional status Patient does n ot drink 04/04/2024 11:08 AM EST UserKasia Patient does not drink [facility] 04-04-2024 How often do you hav e 6 or more drinks on 1 occasion? Never 04/04/2024 11:08 AM EST UserKasia Never [facility] 05-02-2013 Are you deaf, or do you have serious difficulty hearing No 05/02/2013 12:43 PM EDKath Castle Cma No [facility] 05-02-2013 Are you blind, or do you have serious difficulty seeing, even when wearing glasses No 05/02/2013 12:43 PM Kath Bah Cma No [facility] 05-02-2013 Do you have serious difficulty walking or climbing stairs No 05/02/2013 12:43 PM Kath Bah Cma No [facility] 05-02-2013 Do you have difficul ty dressing or bathing No 05/02/2013 12:43 PM Kath Bah Cma No [facility] 05-02-2013 Because of a physica l, mental, or emotional condition, do you have difficulty doing errands alone such as visiting a physician's office or shopping No 05/02/2013 12:43 PM Kath Bah Cma No [facility] Mental Status Date Assessment Result Facility 09-04-2024 Cognitive function Level Of Cons ciousness Awake;Alert;Appropriate;Fol lows Commands [facility] Work Phone: 05-02-2023 Cognitive function Level Of Cons ciousness Awake;Alert;Appropriate;Fol lows Commands [facility] Work Phone: 10-23-2022 Cognitive function Voice/Name;Touch/Shaki ng [facility] Work Phone: 06-13-2022 Cognitive function Level Of Cons ciousness Awake;Alert;Appropriate;Fol lows Commands [facility] Work Phone: 01-06-2022 Cognitive function Level Of Cons ciousness Awake;Alert;Appropriate [facility] Work Phone: 12-20-2021 Cognitive function Level Of Cons ciousness Awake;Alert;Appropriate [facility] Work Phone: 05-02-2013 Because of a physica l, mental, or emotional condition, do you have serious difficulty concentrating, remembering, or making decisions No 05/02/2013 12:43 PM EDT Chester HollyKath [facility] Clinical Notes 09-03-2007 to 12-11-2024 Telephone Encounter - Josue Andrew LPN - 11/01/2024 11:14 AM EDTTelephone Encounter - Josue Andrew LPN - 11/01/2024 11:14 AM EDTTelephone Encounter - Mralen Elizondo LPN - 10/12/2024 3:26 PM EDT Note Date & Type Note Facility 12-11-2024 Note HNO ID: [id number] Author: KATHERINE LOZANO APRN.FOOD SERVICE CASHIER Service: ? Author Type: Nurse Practitioner Type: Progress Notes Filed: 12/11/2024 15:28 Note Text: Chief Complaint Patient presents with: Telemedicine I have communicated my name and active licensure. The patient's identity and physical location were verified at the time of this visit. Either the patient or their legal fraud representative has been informed of the risks [...] agrees to the visit: Yes Patient Location: [facility] Lena Chaparro is a 44 year old female who is contacted today for a virtual visit This is an established patient of Wilver Jones MD HISTORY OF PRESENT ILLNESS: Lena Chaparro is a 44-year-old female presenting for evaluation of macromastia and associated symptoms. Macromastia: - Wearing a Triple D bra size. - Experiencing recurrent intertrigo under the breasts; believes it is due to breast size. - Using nystatin powder and cream for management. Chronic lower back pain. - Considering breast reduction surgery; seeking referral for evaluation. - Chronic lower back pain, believes it is exacerbated by breast size. - Also experiencing hip pain. Previous Medical History PAST MEDICAL HISTORY Diagnosis [...] on File Prior to Visit Medication Sig cholecalciferol, Vitamin D3, (VITAMIN D3) 1,250 mcg (50,000 unit) cap capsule Take 1 capsule by mouth one time a week. omeprazole (PRILOSEC) 40 mg capsule Take 1 capsule by mouth once daily. cetirizine (ZYRTEC) 10 mg tablet Take 1 tablet by mouth once daily. nystatin (NYSTOP) powder Apply 1 application to affected area four times daily. pregabalin (LYRICA) 50 mg capsule Take 1 [...] on file prior to visit. Social History SOCIAL HISTORY[1] EXAM: LMP 08/26/2022 (Exact Date) Limited exam as visit was completed over the virtual platform. Virtual visit completed using video, limited exam completed. Patient sounds or appears ill: No General Appearance: Well appearing, alert, in no [...] Coordination: No abnormal or extraneous movements. Gait/Stance: Po (more content not included)... [facility] 12-06-2024 Note HNO ID: [id number] Author: PATTI CAM APRN.FOOD SERVICE CASHIER Service: ? Author Type: Nurse Practitioner Type: Progress Notes Filed: 12/06/2024 13:29 Note Text: [facility] CONSULT - NEW VISIT Recording using ambient [employer] software for draft documentation of the visit was discussed with the patient/authorized fraud representative; all questions welcomed and answered. Patient/authorized fraud representative agreed to proceed REASON OF VISIT: The patient is a 44-year-old female with obesity and hypercholesterolemia, presenting for initiation of a multidisciplinary 18-month weight management program. REFERRING PHYSICIAN: Katherine Lozano APRN HISTORY OF PRESENT ILLNESS: The patient is a 44-year-old female with a history of hyperlipidemia, presenting for enrollment in a weight management program. Weight Management: - Expresses desire to lose weight and feel better about herself. - Reports difficulty maintaining previous dietary changes due to cost and seasonal availability of fruits. - Craves chips and sweets, contributing to weight gain. - Denies previous use of weight loss medications or surgeries. - Reports binge eating and late-night eating due to second shift work schedule. - Breakfast around 11:30-12:00, lunch around 16:00, dinner around 22:00-23:00. - Reports eating junk food when not cooking due to convenience. - Denies current exercise due to foot pain. - Reports back pain and foot issues contributing to weight gain. - Interested in breast reduction surgery due to back pain. - has fatty liver disease, leading to previous dietary changes which helped her lose weight but was unable to sustain - Smokes approximately one pack of cigarettes per day. Sleep Disturbances: - Reports difficulty falling and staying asleep, possibly due to back pain. - Experiences headaches upon waking. - Snores loudly and occasionally wakes herself up. reports she stops breathing during sleep. - Wakes up feeling tired and exhausted throughout the day. - has a CPAP machine, which she has tried and found comfortable. WEIGHT HISTORY AND TRAJECTORY: Previous attempt for weight loss: self directed dieting, Pertinent medications causing weight gain: Lyrica Pertinent medications causing weight loss: NA Prior Medications for weight Loss, side-effects, and/or contra-indications: NA Lifestyle Factors Diet and Eating behaviors Sleep -- sleep initiation: yes -- sleep maintenance: yes -- hours of sleep: 4 or less sometimes -- shift work associated weight gain: yes, works 2nd shift which affects what time of day she eats STOP BANG Questionnaire 1. Snoring Do you snore loudly (louder than talking or loud enough to be heard through closed doors)? YES 2. Tired Do you often feel tired, fatigued, or sleepy during daytime? YES 3. Observed Has anyone observed you stop breathing during your sleep? YES 4. Blood Pressure Do you have or are you being treated for high blood pressure? NO 5. BMI BMI more than 35 kg/m2? NO 6. Age Age over 50 yr old? NO 7. Neck circumference Neck circumference greater than 40 cm? NO 8. Gender Gender male? NO * Neck circumference is measured by staff High risk of ROSI: answering yes to three or more items Low risk of ROSI: answering yes to less than three items Stress -- multiple Social History Alcohol: no Smoking: yes Recreational Drugs: no Patient Entered Data 08/16/2020 03/25/2023 04/04/2024 PROMIS 10 Health, in general Fair Fair Good Quality of life, in general Fair Good Very good Physical health, in general Fair Good Very good Mental health, in general Good Poor Good Social activities satisfaction Good Good Excellent Performing ADL's Moderately Moderately Mostly Social role satisfaction Good Poor Excellent Pain, on average 6 3 3 Fatigue, on average Moderate Moderate Mild Emotional problems Often Often Often PHYSICAL Score 37.4 (Fair) 42.3 (Good) 50.8 (Very Good) MENTAL Score 38.8 (Fair) 36.3 (Fair) 48.3 (Very Good) MEDICATIONS: Current Outpatient Medications on File Prior to Visit Medication Sig omeprazole (PRILOSEC) 40 mg capsule Take 1 capsule by mouth once daily. nystatin (NYSTOP) powder Apply 1 application to affected area four times daily. pregabalin (LYRICA) 50 mg capsule Take 1 [...] 1 Each by INTRAUTERINE route as directed. cholecalciferol, Vitamin D3, (VITAMIN D3) 1,250 mcg (50,000 unit) cap capsule Take 1 capsule by mouth one time a week. cetirizine (ZYRTEC) 10 mg tablet Take 1 tablet by mouth once daily. No current facility-administered medications on file (more content not included)... [facility] 11-22-2024 Note HNO ID: [id number] Author: CARLOS SOSA Mammo Tech Service: ? Author Type: Promotional Marketing Agent Type: Progress Notes Filed: 11/22/2024 14:51 Note Text: Radiology Service Progress Note PATIENT NAME: Lena Chaparro DATE OF SERVICE: November 22, 2024 TIME: 2:51 PM PATIENT IDENTITY VERIFICATION COMPLETED USING TWO (2) IDENTIFIERS: Name and Date of confirmed by patient verbally. FALL SCREENING: Has the patient had 2 falls in the last year or 1 fall with injury or currently using an Ambulatory Assistive Device (Walker, Cane, Wheelchair, Crutches, etc.)? No PATIENT GENDER DATA: Assigned female at . status: : No status: NO. PATIENT RELEVANT IMPLANT DATA REVIEWED: Not Applicable PATIENT PRESENTS WITH AN IMPLANTABLE OR ATTACHED CANDY BUTCHER: No RADIOLOGY DEPARTMENT: Mammography PERIPHERAL IV DATA: Not applicable SIGNED BY: Carlos Sosa LurnQ November 22, 2024 2:51 PM [facility] 11-14-2024 Note HNO ID: [id number] Author: KATHERINE LOZANO APRN.FOOD SERVICE CASHIER Service: ? Author Type: Nurse Practitioner Type: Progress Notes Filed: 11/14/2024 18:22 Note Text: This is a 44 year old female who presents today with: The patient is a 44-year-old female with GERD, depression/anxiety, right peroneal neuropathy, and right ankle tarsal tunnel syndrome, presenting for an annual physical. HISTORY OF PRESENT ILLNESS: Physical Exam: - Missed last two physical exams appts. Anxiety and Depression: - Well-managed with Prozac 30 mg daily. - Noticed improvement in symptoms within two weeks of starting Prozac. - Previously managed by psychiatrist, currently needs to establish care with a new provider. GERD: - Managed with Prilosec; experiences heartburn if medication is missed. - Reports occasional heartburn after taking Prilosec at night, causing discomfort and difficulty sleeping. - Denies heartburn during the day. Weight Management: - Desires to lose weight but unsure how to diet and finds healthy food expensive. - Limited ability to exercise due to foot pain. - Interested in seeing a dietitian for guidance. PAST MEDICAL HISTORY: PAST MEDICAL HISTORY Diagnosis [...] Take 1 tablet by mouth once daily. nystatin (NYSTOP) powder Apply 1 application to affected area four times daily. pregabalin (LYRICA) 50 mg capsule Take 1 [...] Hypertension Maternal Grandmother Lipids Maternal Grandmother SOCIAL HISTORY[1] REVIEW OF SYSTEMS Constitutional: (-) unintentional weight loss, (-) weakness, (-) fatigue Head: (-) headaches Eyes: (-) visual changes Ears/Nose/Mouth/Throat: (-) hearing changes, (-) dysphagia Neck: (-) neck masses Cardiovascular: (-) chest pain, (-) palpitations, (-) peripheral edema Respiratory: (-) dyspnea Gastrointestinal: (+) heartburn, (+) diarrhea, (+) constipation, (+) hematochezia (hemorrhoidal), (-) melena Genitourinary: (-) dysuria Musculoskeletal: (+) joint pain, (+) muscle pain Skin: (+) dry skin, (+) pruritus right thumb. Neurological: (+) paresthesia, (-) syncope, (-) seizures, (-) tremors EXAM: BP 118/82 Pulse 108 Resp 16 Ht 167 cm (5' 5.75) Wt 87.1 kg (192 lb) LMP 08/26/2022 (Exact Date) SpO2 97% BMI 31.23 kg/m? PHYSICAL EXAM: General Appearance: Well appearing, alert, in no acute distress, well-hydrated, well nourished.. Skin: Skin color, texture, turgor normal, no suspicious rashes or lesions. Dry skin on the right thumb/webbing. Head: Normocephalic, no masses, lesions, tenderness or abnormalities. Eyes: Anicteric sclera. Pupils are equally round and reactive to light. Extraocular movements are intact. . Ears: External ears normal, canals clear. Normal TMs bilaterally. Oropharynx: Lips, mucosa, and tongue normal, teeth and gums normal, oropharynx normal. Neck: Supple, no adenopathy; thyroid symmetric, normal size, no bruits. Lungs: Lungs clear to auscultation. No wheezing, rhonchi, rales.. Heart: RRR without murmur, gallop, or rubs. No ectopy. Abdomen: Abdomen (more content not included)... [facility] 11-01-2024 Telephone encounter Note No Show letter #1 mailed to patient. [facility] 11-01-2024 Miscellaneous Notes No Show letter #1 mailed to patient. documented in this encounter [facility] 10-12-2024 Telephone encounter Note Prescription Refill Information The [...] future office visit with this provider/department: Yes 11/01/24 Requested Prescriptions Pending Prescriptions Disp Refills omeprazole (PRILOSEC) 40 mg capsule 30 capsule 3 Sig: Take 1 capsule by mouth once daily. Marlen Elizondo LPN October 12, 2024 3:26 PM [facility] 10-12-2024 Miscellaneous Notes Prescription Refill Information The patient [...] future office visit with this provider/department: Yes 11/01/24 Requested Prescriptions Pending Prescriptions Disp Refills omeprazole (PRILOSEC) 40 mg capsule 30 capsule 3 Sig: Take 1 capsule by mouth once daily. Marlen Elizondo LPN October 12, 2024 3:26 PM documented in this encounter [facility] 09-19-2024 Note Patient Outreach (FA MPWS) LENA CHAPARRO ([id number]) 1980 F Date Time Provider Department 09/19/24 WILVER JONES During your visit today, we recorded the following information about you: Allergies As of Date: 09/19/2024 Noted Allergy Reaction TIOCONAZOLE 01/30/2005 7 - Swelling Comments: Labial swelling Date Reviewed: 05/28/2024 Reviewed by: Conchis Santillan LPN - Fully Assessed Visit Diagnosis:Encounter for screening mammogram for breast cancer [Z12.31] Order(s):ANSELMO SCREENING Yadiel REED [[id number]] Order #: [id number] FUTURE Prescriptions as of 10/20/2024 - omeprazole (PRILOSEC) 40 mg capsule Take 1 capsule by mouth once daily. - cetirizine (ZYRTEC) 10 mg tablet Take 1 tablet by mouth once daily. - nystatin (NYSTOP) [...] as directed. Problem List As Of Date 09/19/2024 Noted Resolved ABNL FINDINGS ON SCREEN [O28.9] [...] with depression [F41.8] 05/28/2022 Encounter Status:Closed by POLI ARRINGTONUSER on 10/20/24 [facility] 09-04-2024 Discharge summary [facility] 06-04-2024 Evaluation note Diagnosis Onset Date Resolution URI (upper respiratory infection) resolved June 04, 2024 11:37am [facility] Work Phone: [phone] Instructions* Patient Instructions* Paul Greenwood PA - 05/28/2024 3:15 PM [...] to thin out mucus [facility]25 NoteHNO ID: [id number] Author: PAUL GREENWOOD PA Service: ? Author Type: Physician Rad Technologist Type: Progress Notes Filed: 05/28/2024 15:33 Note [...] fatigue. No fevers. Has not taken anything roxw-guv-dyjwuug for symptoms. No other complaint PAST MEDICAL [...] MOLECULAR (POC) 2. Bila (more content not included)...[facility]04-13-2025 History of Present illness Narrative* Paul Greenwood PA - 05/28/2024 3:06 PM EDTAssociated Order(s): Cerumen Removal Post-Procedure Diagnose(s): Bilateral impacted [...] congestion, cough. She has some fatigue. No fevers.Has not taken anything xlcc-cvv-zgsruxj for symptoms. No other complaint PAST MEDICAL [...] Greenwood PA Informed Consent Consent Obtained: Verbal [place] Protocol A moment to CARE was completed. [...] well, no immediate complications Comments: Completed by SANJEEV- Conchis Santillan SIGN OUT No specimen collected. All instruments, equipment, possible retained foreign bodies accounted for. No post-procedure POC communication to the patient or surrogate applicable. No post-procedure POC communication to the patient's multidisciplinary team (including the bedside nurse for hospitalized patients) applicable. documented in this encounterCleveland [id number] Telephone encounter Note * Telephone Encounter - Lilibeht Pino RN - 05/10/2024 3:43 AM EDT Reason for Call: Chest and abdominal pain that she attributes to being out of Prilosec for some time. Hesitantly denies SOB, breathing sounds guarded at times during the call. States no improvement with OTC Prilosec, prior to starting her 05/08/24 Prilosec Rx renewal and is calling to ask if she cantake Pepcid AC with the Prilosec. Per [facility] Historical Medication list prior Prilosec Rx was written 11/09/23 # 30, with 3 refills. Agrees to triage. Outcome: Call 911 now. States she will have her drive her to [place] ED now. Reason for Disposition [1] Chest pain lasts > 5 minutes AND [2] age > 44 Protocols used: Chest Ujwj-VHOOY-SP [facility]03-26-2025 Miscellaneous Notes* Telephone Encounter - Lilibeth Pino RN - 05/10/2024 3:43 AM EDT Reason for Call: Chest and abdominal pain that she attributes to being out of Prilosec for some time. Hesitantly denies SOB, breathing sounds guarded at times during the call. States no improvement with OTC Prilosec, prior to starting her 05/08/24 Prilosec Rx renewal and is calling to ask if she cantake Pepcid AC with the Prilosec. Per [facility] Historical Medication list prior Prilosec Rx was written 11/09/23 # 30, with 3 refills. Agrees to triage. Outcome: Call 911 now. States she will have her drive her to [place] ED now. Reason for Disposition [1] Chest pain lasts > 5 minutes AND [2] age > 44 Protocols used: Chest Jvjt-BSRIH-CA documented in [facility]Core[facility] Telephone encounter Note * Telephone Encounter - Augustus Isbell LPN - 05/08/2024 4:26 PM EDT Prescription Refill Information The patient has been [...] Take 1 capsule by mouth once daily. Augustus Isbell LPN May 08, 2024 4:26 PM [facility]03-24-2025 Miscellaneous Notes* Telephone Encounter - Augustus Isbell LPN - 05/08/2024 4:26 PM EDT Prescription Refill Information The patient has been [...] Take 1 capsule by mouth once daily. Augustus Isbell LPN May 08, 2024 4:26 PM documented in this encounterCorey [facility]02-18-[facility]25 Instructions* Patient Instructions* Katherine Lozano APRN.FOOD SERVICE CASHIER - 04/04/2024 1:46 PM EST Images from the original note were not included. FACT SHEET FOR PATIENTS, PARENTS, AND CAREGIVERS EMERGENCY USE AUTHORIZATION (EUA) OF PAXLOVID FOR CORONAVIRUS DISEASE 2019 (COVID-19) You are being given this Fact Sheet because your healthcare provider believes it is necessary to provide you with PAXLOVID for the treatment of wsbe-ga-xjtpsxot coronavirus disease (COVID-19) caused by the SARS-CoV-2 virus. This Fact Sheet contains information to help you understand the risks and benefits of taking the PAXLOVID you may receive. This Fact Sheet also contains information about how t o take PAXLOVID and how to report side effects or problems with the appearance or packaging of PAXLOVID. The [place].S. Food and Drug Administration (FDA) has issued an Emergency Use Authorization (EUA) to makePAXLOVID available for the treatment of mibg-do-yvpipcvg COVID-19 in adults and children 12 years [...] You can get COVID-19 through close contact withanother person who has the virus. COVID-19 illnesses have ranged from very xbzh-ah-lzidfg, including illness resulting in . While information so far suggests that most COVID-19 illness is mild, serious illness can happen and maycause some of your other medical conditions to become worse. Older people and people of all ages with severe, long lasting (chronic) medical conditions like heart disease, lung disease, and diabetes,for example seem to be at higher risk of being hospitalized for COVID-19. What is PAXLOVID? PAXLOVID is a medicine that is available under EUA for the treatment of bxvx-wn-upxsrave COVID-19 in adults and children 12 years of age and older weighing at least 88 pounds (40 kg) who are at high risk for progression to severe COVID-19, including hospitalization or . Although PAXLOVID is FDA- approved for the treatment of COVID-19 in certain adults (see section What other treatment choicesare there?), PAXLOVID use in children remains investigational because it is still being studied. There is limited information about the safety and effectiveness of using PAXLOVID to treat children with srhq-yt-sytdidmw COVID-19. What is the most important information [...] o ranolazine o rifampin o rifapentine o Daniel s Wort (hypericum perforatum) o sildenafil (Revatio [...] the medicines you take, including prescription and rgap-oox-zkwaaoi medicines, vitamins, and herbal supplements. Your healthcare [...] morning or evening, depending on when you grape picker your prescription, or as your healthcare [...] missed dose and take the next dose atyour regular time. Do not take 2 doses [...] PAXLOVID is FDA-approved for the treatment of iyee-ce-qsjjbevu COVID-19 in certain adults; however,there are not sufficient quantities of the approved presentations (i.e., dose packs) of PAXLOVID atthis time. This EUA continues to authorize the emergency use of PAXLOVID for the approved patient population to ensure continued access in order to meet the public health need. VEKLURY (remdesivir) is FDA-approved for the treatment of cpgx-mf-rglgauui COVID-19 in certain adults and children. Talk with your healthcare provider to see if VEKLURY is appropriate for you. For information on the emergency use of other medicines that are authorized by FDA to treat people with COVID-19, please go to https://www.fda.gov/zewdgkhhf-svepugeojxfu-lbf-response/xcf-kcrui-nwijump lfr-dhx-niigub-framework/ccqnkrgqb-qcv-odsmrynttbxpj. Your healthcare provider may talk with you [...] examples of PAXLOVID Dose Packs) to FDA [employer] at www.fda.gov/medwatch or call 8-005-PME-4231 or you can report side effects to [employer]. at the contact information provided below. How [...] bottom of blister pack at this website: https://www.ahoyDocdloteBOLD Guidance.[employer]/ or talk with your healthcare provider. Information onthe authorized shelf-life extensions for PAXLOVID may also be found at https://www.fda.gov/emergency -kslpkdxpaecx-her-ftlzzcnq/pre-vciug-naborseaii-zih-uhwitt-rhnymvyjt/expiration- dating-extension. How can I learn more about COVID-19? Ask your healthcare provider. Visit https://www.cdc.gov/COVID19. Contact your local or state public health department. What is an Emergency Use Authorization (EUA)? The [place] FDA has made PAXLOVID available under an emergency access mechanism called an Emergency Use Authorization (EUA). The EUA is supported by a [employer] Shift Manager of Health and Human Services (HHS) declaration that circumstances exist to justify the [...] call the telephone number provided below. Website: www.ZXYWR84feyoVcXango.com Telephone number: (6-584-L25-PACK) Distributed by [employer] [place] [address] [id number] Revised: 06/2022 documented in this encounterCorey Hospital02-18-2025 NoteHNO ID: [id number] Author: KATHERINE LOZANO APRN.FOOD SERVICE CASHIER Service: ? Author Type: Nurse Practitioner Type: Progress Notes Filed: 04/04/2024 17:46 Note Text: Chief Complaint Patient presents with: Telemedicine I have communicated my name and active licensure. The patient's identity and physical location were verified at the time of this visit. Either the patient or their legal fraud representative has been informed of the risks [...] agrees to the visit: Yes Patient Location: [facility] Lena Chaparro is a 44 year old [...] body aches, and felt worse. Went to grape picker a covid test and it was [...] is unable to spea (more content not included)...[facility]02-18-2025 History of Present illness Narrative* Katherine Lozano, DORON.FOOD SERVICE CASHIER - 04/04/2024 1:39 PM EST Chief Complaint Patient presents with: Telemedicine I have communicated my name and active licensure. The patient's identity and physical location wereverified at the time of this visit. Either the patient or their legal fraud representative has been informed of the risks and benefits of -- and alternatives to -- treatment through a remote evaluation andconsents to proceed with the evaluation remotely. Video was used for evaluation of this patient. Patient is aware of limitations of performing the visit without a face to face visit in the office setting and agrees. Patient agrees to the visit: Yes Patient Location: [facility] Lena Chaparro is a 44 year old [...] body aches, and felt worse. Went to grape picker a covid test and it was [...] done Mammogram Screening due on 10/14/2023 Covid-19 Vaccine(3 - 2023- season) due on 10/18/2024 Cervical Cancer Screening [...] as needed for worsening/no improvement. Katherine Lozano APRN.FOOD SERVICE CASHIER Nirmatrelvir/Ritonavir (Paxlovid) Considerations Paxlovid is FDA-approved for [...] 04, 2024 1:46 PM documented in this encounterCorey Hospital02-06-2025 Telephone encounter Note * Telephone Encounter - Clover Martin APRN.CNP - 03/23/2024 5:23 PM EST The following approved medication requests have been transmitted electronically. Requested Prescriptions Pending Prescriptions Disp Refills nystatin (NYSTOP) powder 60 g 2 Sig: Apply 1 application to affected area four times daily. Clover Martin APRN.CNP [facility]02-06-2025 Miscellaneous Notes* Telephone Encounter - Clover Martin APRN.CNP - 03/23/2024 5:23 PM EST The following approved medication requests have been transmitted electronically. Requested Prescriptions Pending Prescriptions Disp Refills nystatin (NYSTOP) powder 60 g 2 Sig: Apply 1 application to affected area four times daily. Clover Martin APRN.CNP * Telephone Encounter - Melissa Sadler LPN - 03/23/2024 3:01 PM EST The patient has been identified by name [...] Sadler LPN March 23, 2024 3:05 PM * Telephone Encounter - Bethanie Langston - 03/23/2024 1:59 PM EST Prescription Refill Information The patient has been [...] to affected area four times daily. Bethanie Vogel [facility] March 23, 2024 1:59 PM documented in this encounterCorey Hospital02-06-2025 Telephone encounter Note * Telephone Encounter - Melissa Sadler LPN - 03/23/2024 3:01 PM EST The patient has been identified by name [...] Sadler LPN March 23, 2024 3:05 PM [facility]02-06-2025 Telephone encounter Note* Telephone Encounter - Bethanie Langston - 03/23/2024 1:59 PM EST Prescription Refill Information The patient has been [...] to affected area four times daily. Bethanie Vogel [facility] March 23, 2024 1:59 PM [facility]09-24-2024 Telephone encounter Note* Telephone Encounter - Virginia Dhaliwal - 11/09/2023 9:36 AM EDT Prescription Refill Information The patient has been [...] Virginia Dhaliwal November 09, 2023 9:36 [facility]24[facility]24 Miscellaneous Notes* Telephone Encounter - Virginia Dhaliwal - 11/09/2023 9:36 AM EDT Prescription Refill Information The patient has been [...] 09, 2023 9:36 AM documented in this encounterCorey Hospital09-03-2024 Telephone encounter Note * Telephone Encounter - Lauren Mckenna - 10/19/2023 3:49 PM EDT Due to patient not completing 6 mo call back on rt breast that was due 03/2023 we will need [facility]ure[facility] order changed to [facility]x [facility] and by the time we get her scheduled her current rt breast ultrasound will have so a new order for that please. [facility]09-03-2024 Miscellaneous Notes* Telephone Encounter - Lauren Mckenna - 10/19/2023 3:49 PM EDT Due to patient not completing 6 mo call back on rt breast that was due 03/2023 we will need Larueano order changed to Dx [facility] and by the time we get her scheduled her current rt breast ultrasound will have so a new order for that please. documented in this encounterCorey Hospital09-03-2024 History of Present illness Narrative* Wilver Jones MD - 10/19/2023 2:37 PM EDT Patient presents with: Follow Up HPI: [...] similar to when she had vertigo in thepast. 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 Following with podiatry [...] history andsocial history today. REVIEW OF SYSTEMS No chest [...] HYDROXY Wilver Jones MD documented in this encounterCorey Hospital07-31-2024 History of Present illness Narrative* Lorena Warner APRN.FOOD SERVICE CASHIER - 09/15/2023 5:41 PM EDT 09/15/2023 Patient presents with: Vertigo: X1 day [...] lb) LMP 08/26/2022 (Exact Date) SpO2 98% BMI31.07 kg/m . Vital signs reviewed by this [...] suspicious rashes or lesions to exposed skin [place]: no nystagmus on exam. Mild dizziness rising [...] to ER with red flag symptoms Lorena Leallogsuzi, GENERAL PRODUCTION LABORER.FOOD SERVICE CASHIER Prescription instructions reviewed with patient as applicable. [...] Level: 4 - Moderate documented in this encounterCorey [facility]07-31-[facility]24 Telephone encounter Note * Telephone Encounter - Lauren Tay RN - 09/15/2023 4:45 PM EDT Triage Protocol Recommended: See provider within 24 hours. Appt made with Lorena Warner CNP for this evening. Pt aware to proceed to nearest ER for red flag sx's. Reason for Disposition [1] MODERATE dizziness (e.g., vertigo; feels very unsteady, interferes with normal activities) AND [2] has NOT been evaluated by doctor (or FEED MILLER/PA) for this Answer Assessment - Initial Assessment [...] SYMPTOMS: as above Protocols used: Dizziness - Wallokv-GDSVI-DT [facility] Miscellaneous Notes* Telephone Encounter - Lauren Tay RN - 09/15/2023 4:45 PM EDT Triage Protocol Recommended: See provider within 24 hours. Appt made with Lorena Warner CNP for this evening. Pt aware to proceed to nearest ER for red flag sx's. Reason for Disposition [1] MODERATE dizziness (e.g., vertigo; feels very unsteady, interferes with normal activities) AND [2] has NOT been evaluated by doctor (or FEED MILLER/PA) for this Answer Assessment - Initial Assessment [...] SYMPTOMS: as above Protocols used: Dizziness - Iwstbxo-EMNOF-SJ documented in this encounterCorey Hospital07-19-2024 Telephone encounter Note * Telephone Encounter - Ana Ortiz - 09/03/2023 12:03 PM EDT Prescription Refill Information The patient has been [...] Ana Ortiz September 03, 2023 12:03 PM [facility]07-19-[facility] Miscellaneous Notes* Telephone Encounter - Ana Ortiz - 09/03/2023 12:03 PM EDT Prescription Refill Information The patient has been [...] 03, 2023 12:03 PM documented in this encounterCorey Hospital06-18-2024 Telephone encounter Note * Telephone Encounter - Conchis Santillan LPN - 08/03/2023 7:12 PM EDT Patient given results and verbalized understanding of instructions given. Conchis Santillan LPN [facility]06-18-[facility]24 Miscellaneous Notes* Telephone Encounter - Conchis Santillan LPN - 08/03/2023 7:12 PM EDT Patient given results and verbalized understanding of instructions given. Conchis Santillan LPN * Telephone Encounter - Jennifer Saldivar APRN.CNP - 08/03/2023 2:38 PM EDT Urine culture reveals no bacterial growth. Can stop taking the keflex Follow up with PCP for blood noted in urine Please advise documented in this encounterCorey Hospital06-18-2024 Telephone encounter Note * Telephone Encounter - Jennifer Saldivar APRN.CNP - 08/03/2023 2:38 PM EDT Urine culture reveals no bacterial growth. Can stop taking the keflex Follow up with PCP for blood noted in urine Please advise [facility] Work Phone: 1(142) 207-677006-17-2024 History of Present illness Narrative* Johnathan Chavez APRN.CNP - 08/02/2023 12:40 PM EDT Subjective HPI A nontoxic appearing female presents to urgent care with chief complaint of possible UTI. Duration of symptoms 2 days. Associated symptoms dysuria, frequency, and urgency. Patient has history of UTIsin past with similar signs and symptoms. Patient denies the use of any cagk-czg-dqxafjm medicationsor home remedies for symptom management. Patient states [...] hearing noted. No drainage, swelling or tenderness. Tympanicmembrane is not perforated, erythematous or bulging. Nose: [...] tenderness, guarding or rebound. Negative signs include Miguel's sign and McBurney's sign. Musculoskeletal: General: No [...] cystitis. Placed on Keflex. Urine culture ordered. Resultspending. If negative follow-up with PCP or RESEARCH LAB ASSISTANT for repeat urinalysis. Patient was educated on supportive therapies. Patient will follow up with primary care provider as needed. Patient was instructed to immediately proceed to emergency room for any new, worsening, or symptoms lasting longer thananticipated. The patient's clinical presentation is otherwise unremarkable at this time. Based on exam and clinical finding, the patient is stable for discharge. Plan of care was discussed with patient. Patient verbalizes understanding and agrees to plan of care. This note was generated using [employer] software. It may contain errors in wording, punctuation, or spelling. Johnathan Chavez APRN.CADY documented in this encounterCorey Hospital06-03-2024 History of Present illness Narrative* Wilver Jones MD - 07/19/2023 2:45 PM EDT Patient presents with: 6 Month Exam HPI: [...] a surgery. 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 She is hoping to eventually do that. [...] G57.31 Wilver Jones MD documented in this encounterCorey Hospital05-15-2024 Telephone encounter Note * Telephone Encounter - Melissa Betancourt MA - 06/30/2023 1:42 PM EDT Patient phones requesting refills as follows: Requested Prescriptions Pending Prescriptions Disp Refills omeprazole (PRILOSEC) 40 mg capsule 30 capsule 3 Sig: Take 1 capsule by mouth once daily. Please review and advise. Melissa Betancourt MA [facility]05-15-2024 Miscellaneous Notes* Telephone Encounter - Melissa Betancourt MA - 06/30/2023 1:42 PM EDT Patient phones requesting refills as follows: Requested Prescriptions Pending Prescriptions Disp Refills omeprazole (PRILOSEC) 40 mg capsule 30 capsule 3 Sig: Take 1 capsule by mouth once daily. Please review and advise. Melissa Betancourt MA documented in this encounterCorey Hospital04-24-2024 Discharge summary Author Shira Echavarria [facility] June 09, 2023 1:50pm Note Date/Time June 09, 2023 1:5 0pm [facility] Physical Therapy [facility] [address] [place] [address] / REHABILITATION SERVICES DISCHARGE SUMMARY MR#: [id number] Acct: [id number] Name: LENA CHAPARRO Rep #: [id number] : 1980 43 From: Shira Riggins Referring Dr.: RADHA Yuan Status: REG R Insurance: [facility] [employer] [facility] INSURANCE Discharge Summary D/C summary: It has been my pleasure to treat LENA CHAPARRO referred by Dr. Bal Yuan,RADHA, with the diagnosis of R Plantar Fascial [...] please feel free to call me at [phone]. Thank you for the referral of thispatient. Sincerely, CHARY Alcazar Balance/Gait/Functional tests Balance/Special Test Scores Lower Extremity Functional Score: 40 Improvement % Improvement: 0 <Electronically signed by Shira Echavarria MPT> 06/09/23 1350 CC: DPM Dr. Bal Yuan; Dr. Wilver Jones MD ~ Signed [facility] Work Phone: 1(273) 152-291104-24-2024 Telephone encounter Note* Telephone Encounter - Daja Mcintosh MA - 06/09/2023 1:38 PM EDT Patient informed. She would like to grape picker today. Taken to medical records. Daja Mcintosh MA [place] [address]-24-2024 Miscellaneous Notes* Telephone Encounter - Daja Mcintosh MA - 06/09/2023 1:38 PM EDT Patient informed. She would like to grape picker today. Taken to medical records. Daja Mcintosh MA * Telephone Encounter - Wilver Jones MD - 06/09/2023 1:12 PM EDT Emg reviewed. Letter printed. * Telephone Encounter - Maggie Ramirez LPN - 06/09/2023 1:05 PM EDT PATIENT is calling stated that she had a nerve test done at [facility] on 05/11/23, came back that she has [...] further. Maggie Ramirez LPN documented in this encounterCorey Hospital04-24-2024 Telephone encounter Note * Telephone Encounter - Wilver Jones MD - 06/09/2023 1:12 PM EDT Emg reviewed. Letter printed. [facility] Telephone encounter Note* Telephone Encounter - Maggie Ramirez LPN - 06/09/2023 1:05 PM EDT PATIENT is calling stated that she had a nerve test done at [facility] on 05/11/23, came back that she has [...] patient is not sure. Please advise further. aMggie Ramirez LPN [facility] Work Phone: 1(748) 522-948004-11-2024 Miscellaneous Notes* Telephone Encounter - Rachell Fajardo MA - 05/27/2023 2:45 PM EDT 06/08 at 340pm documented in this encounterCorey Hospital04-02-2024 Miscellaneous Notes* Telephone Encounter - Luis Angel Lopez MD - 05/18/2023 8:59 AM EDT Duplicate? documented in this encounterCorey Hospital03-26-2024 Procedure [facility]03-22-2024 History of Present illness Narrative* Wilver Jones [...] Report is scanned into chart from 05/02/23 [facility] had labs and CT scan. CT showed just reactive lymphadenopathy. [place] likely to be viral in origin. Was [...] See previous ov, copied and pasted. Her radiology physician before has refused to complete and type of disability or time off paperwork and has stated it is up to primary care. She goes back to see him in two weeks. 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 We discussed that I can do that [...] resolved. Wilver Jones MD documented in this encounterCorey Hospital02-22-2024 History of Present illness Narrative* Arnoldo Mccloud [...] Post nasal drainage, Malaise, neck ache, right congregational ache Negative symptoms: Wheezing, Fever, Body Aches, [...] cough. Arnoldo Mccloud MD documented in this encounterCorey Hospital02-12-2024 Miscellaneous Notes* Telephone Encounter - Daja Mcintosh - 03/29/2023 2:32 PM EST Placed call to patient with no answer. Left detailed message informing her form was ready for grape picker. Taking form to medical records for grape picker. Daja Mcintosh * Telephone Encounter - Wilver Jones MD - 03/29/2023 12:21 PM EST done * Telephone Encounter - Rachell Fajardo Ma - 03/29/2023 11:17 AM EST Type of form: Child Support Statement of Health Care Provider Form received via walk in When form is completed, call patient to grape picker Form has been forwarded to Physician Desk: Dr. Karen Fajardo Ma documented in this encounterCorey Hospital02-08-2024 History of Present illness Narrative* Wilver Jones [...] visit. Either the patient or their legal fraud representative has been informed of the risks [...] see her free of charge today. Her radiology physician before has refused to complete and type of disability or time off paperwork and has stated it is up to primary care. She goes back to see him in two weeks. 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 We discussed that I can do that [...] weeks. Had an injection of steroidby the radiology physician. States that she just wants paper signed by the courts that would put child support on hold. Senior Technical Writer refused to write her off work or [...] above. Wilver Jones MD documented in this encounterCorey Hospital02-07-2024 Miscellaneous Notes* Telephone Encounter - Harriet Moon RN - 03/24/2023 1:45 PM EST Pt called and is notified of providers messageand instructions. Pt voices understanding. Harriet Moon RN * Telephone Encounter - Daja Mcintosh - 03/24/2023 10:19 AM EST Scheduled patient for 40min VV with Dr. Jones tomorrow on his [facility] schedule. This was okay'd per Dr. Jones. Scheduled at 10:40. Placed call to Lena with no answer. Left detailed message for her explaining this to her. Advised her to call back and let us know she received the message. Daja Mcintosh documented in this encounterCorey Hospital02-06-2024 History of Present illness Narrative* Clover Martin APRN.NAVIGATION TEACHER - 03/23/2023 4:22 PM EST This is [...] weeks. Had an injection of steroidby the radiology physician. States that she just wants paper signed by the courts that would put child support on hold. Senior Technical Writer refused to write her off work or [...] Presents in a cam walker per her radiology physician. Psychosocial: Pt. Was offended that this provider offered assurance that condition is not lifelong.Became very belligerent. Began swearing and calling provider profane names. ASSESSMENT/PLAN: 1. Foot pain, bilateral - ICD9: 729.5, ICD10: M79.671, M79.672 Verified with radiology physician's office that pt. Was placed in boot, [...] agrees with the plan. documented in this encounterCorey Hospital11-30-2023 Miscellaneous Notes* Telephone Encounter - Daja Mcintosh - 01/14/2023 2:04 PM EST Patient informed and verbalized understanding. Daja Mcintosh * Telephone Encounter - Wilver Jones MD - 01/14/2023 12:27 PM EST Labs are stable. Vit d is low. Add vit d once a week. Recheck level in eight weeks. documented in this encounterCorey Hospital11-29-2023 History of Present illness Narrative* Wilver Jones [...] surgery on foot back in Oct. Her radiology physician declines to write any work slips. Currently [...] occasional physical urticaria. Still persistent. Has seen archivist nonprofit foundation for same. Saw bioinformatics support specialist. All other reviewed and negative other than HPI. HEALTH MAINTENANCE: Reviewed health maintenance issues today and recommended the following in detail. Pneumococcal Vaccine(1 - PCV) Never done Hepatitis B Vaccine(2 of 3 - 3-dose series) due on 10/31/1998 Hepatitis C Screening Never done HIV Screening Never done Covid-19 Vaccine(2022-24 season) due on 10/16/2022 VITALS: BP 132/82 [...] lbs. Wilver Jones MD documented in this encounterCorey Hospital11-21-2023 Discharge summary Author Anurag Ruffin [facility] January 05, 2023 1:29pm Note Date/Time January 05, 2023 1:29pm [facility] Physical Therapy [facility] [address] [place] [address] / REHABILITATION SERVICES DISCHARGE SUMMARY MR#: [id number] Acct: [id number] Name: LENA CHAPARRO Rep #: [id number] : 1980 42 From: Cert. TAHMINA Solo, OCS Referring Dr.: RADHA Yuan Status: REG RCR Insurance: [facility] SEL[employer] PAY INSURANCE Discharge Summary D/C summary: [...] please feel free to call me at [phone]. Thank you for the referral of thispatient. Sincerely, Anurag Ruffin PT, Cert MDT, OCS Balance/Gait/Functional tests Balance/Special Test Scores Lower Extremity Functional Score: 70 Improvement % Improvement: 80 <Electronically signed by Ramos King PT. TAHMINA, OCS> 01/05/23 0385 CC: RADHA Yuan; Dr. Wilver Jones MD ~ KRISTOPHER Signed [facility] Work Phone: 1(446) 859-887911-11-2023 History of Present illness Narrative* Luis Angel [...] entered by the nurse and reviewed by wy Nursing Notes: Christina Dawson RN 12/25/2022 4:13 [...] Mammogram screening? 10/13/2022 Last Colonoscopy: None Christina Dawsno RN PHYSICAL EXAMINATION: General: The patient is [...] Luis Angel Lopez MD documented in this encounterCorey Hospital11-10-2023 Telephone encounter Note * Telephone Encounter - Ghazala Magaña - 12/25/2022 4:23 PM EST 02/23/2023 COLON/EGD ASC Denied sooner date [facility]11-10-20[facility] Miscellaneous Notes* Telephone Encounter - Ghazala Magaña - 12/25/2022 4:23 PM EST 02/23/2023 COLON/EGD ASC Denied sooner date documented in this encounterCorey Hospital11-10-2023 Nurse Note* Christina Dawson RN - 12/25/2022 [...] None Christina Dawson RN documented in this encounterCorey Hospital11-10-2023 Instructions* Patient Instructions* Luis Angel Lopez MD [...] If you do not have a responsible full service vending driver (family member or friend) withyou to take you home, your exam cannot be done with sedation and will be cancelled. Please bring a list of all of your current medications, including any Kwcc-ngr-Mmrkjhv medications with you. Medications If you take [...] your exam. 2 01/2019 documented in this encounterCorey Hospital10-27-2023 Miscellaneous Notes* Telephone Encounter - Giselle Best - 12/11/2022 12:09 PM EDT Pharmacy verified in [facility] Patient has been identified by name and [...] (168 lb) Not applicable Please advise. Giselle Pelayo documented in this encounterCorey Hospital09-19-2023 History of Present illness Narrative* Wilver Jones [...] recently. Has also been eating snacks with ajay. Discussed limiting it. No dysphagia. No chest [...] RELEASE Wilver Jones MD documented in this encounterCorey Hospital09-08-2023 Procedure [facility]08-30-2023 Miscellaneous Notes* Telephone Encounter - Emili Gaspar RN - 10/14/2022 9:27 AM EDT Called and left a detailed voicemail notifying patient of providers message. Left phone # for pt tocall and set up 6 month f/u now. [...] six months. Dr Frost documented in this encounterCorey Hospital08-29-2023 History of Present illness Narrative* Rachael Barnett [...] 13, 2022 4:27 PM documented in this encounterCorey Hospital08-28-2023 History and physical note * Katherine Lozano APRN.FOOD SERVICE CASHIER - 10/12/2022 5:09 PM EDT HISTORY AND [...] or problems Cardiovascular: no hx of CAD, CO, CHF, DVT/PE, arrhythmia, HTN. + hx of hyperlipidemia. GI: Positive for GERD : No history of UTI in past 6 weeks. No history of renal failure. Not currently on or requiring dialysis. No history of symptoms or problems. KEY ATTENDANT: Negative for abnormal vaginal bleeding, abnormal vaginal [...] you for allowing us to participate in [facility]'s care. Please let us know if we [...] improvement. Katherine Lozano APRN.CADY documented in this encounterCorey Hospital08-23-2023 Miscellaneous Notes* Telephone Encounter - Lauren Tay RN - 10/07/2022 1:55 PM EDT [facility] calling to state office received Dr. Jones's consent for surgical clearance for pt's outpatient foot procedure. Augustus states patient must have Pre-Op surgical clearance visit with provider within 30 days of procedure. Procedure date has not been scheduled as of yet. Reports pt's last PCP OV was 09/08 and is only good for 30 days and is about to for clearance.Augustus requesting patient be updated of this and requesting pt to see PCP/provider again for new Pre-Op clearance. Augustus reports pt's foot procedure will then be [...] Lauren Tay RN * Telephone Encounter - Josue Andrew LPN - 10/07/2022 11:24 AM EDT Faxed back as requested. * Telephone Encounter - Clover Briones LPN - 10/06/2022 4:19 PM EDT Type of form: surgical clearance request Form received via fax When form is completed, Fax form to [phone] Form has been forwarded to Physician Desk: Dr. Karen Briones LPN documented in this encounterCorey Hospital07-18-2023 Instructions* Patient Instructions* Klaudia Cobb APRN.FOOD SERVICE CASHIER - 09/01/2022 11:47 AM EDT Management of Benign Breast Pain / Fibrocystic Changes Decrease or avoid intake of caffeine, including coffee, teas, sodas, and chocolate. Decrease or avoid nicotine. Wear a support or sports (not underwire) bra. Take rrji-dbu-vphunoz ibuprofen (Advil/Motrin) or other NSAIDs, such as naproxen (Aleve). Take 3 grams (3000 mg.) of evening primrose oil (available ayxd-uby-ufkivjy) in divided doses for 2months. Take warm showers. Use warm compresses. Gold Grover Friction Defense for prevention of chafing documented in this encounterCorey Hospital07-18-2023 History of Present illness Narrative* Klaudia Cobb APRN.FOOD SERVICE CASHIER - 09/01/2022 11:30 AM EDT Lena Chaparro [...] needed and at annual exam. Klaudia Cobb APRN.CADY Medical Decision Making: Problems: Moderate: 1+ chronic illnesses with change and New problem with uncertain prognosis Risk: Moderate: Drug management Medical Decision Making Level: 4 - Moderate documented in this encounterCorey Hospital07-05-2023 Discharge summary Author Zachery Pickard [facility] August 19, 2022 3:55pm Note Date/Time August 19, 2022 3:55p sherwin [facility] Physical Therapy [facility] [address] [place] [address] / REHABILITATION SERVICES DISCHARGE SUMMARY MR#: [id number] Acct: [id number] Name: LENA CHAPARRO Rep #: [id number] : 1980 42 From: Zachery Pickard DPT, OCS, CSCS Referring Dr.: RADHA Yuan Status: REG RCR Insurance: [facility] S[employer] PAY INSURANCE Discharge Summary D/C Summary: It has been my pleasure to treat LENA CHAPARRO referred by Dr. Bal Yuan DPM, with the diagnosis of DDD for a [...] please feel free to call me at [phone]. Thank you for the referral of thispatient. Sincerely, Zachery Pickard DPT, OCS, CSCS <Electronically signed by Zachery Pickard DPT, OCS, CSCS> 08/19/22 0939 CC: RADHA Yuan; Dr. Wilver Jones MD ~ EBG Signed [facility] Work Phone: 1(245) 944-989307-05-2023 Discharge summary Author Zachery Pickard [facility] August 19, 2022 3:51pm Note Date/Time August 19, 2022 3:51p [facility] Physical [facility] [address] [place] [address]. [address] [place] [address] / REHABILITATION SERVICES DISCHARGE SUMMARY MR#: [id number] Acct: [id number] Name: LENA CHAPARRO Rep #: [id number] : 1980 42 From: Zachery Pickard DPT, OCS, CSCS Referring DrArlette: RADHA Yuan Status: REG RCR Insurance: [facility] S[employer] PAY INSURANCE Discharge Summary D/C summary: It has been my pleasure to treat LENA CHAPARRO referred by Dr. Bal Yuan,RADHA, with the diagnosis of B PF itis for a total of 14 visit(s). Discharge Date: 08/19/22 Please see the following information for a summary of their discharge status. Subjective Subjective: To Dr 08/26. Still hurting in feet R>L...right at [...] Feet not improving and will seek more financial health counselor from doctor. d/c sentence: If there are questions or concerns regarding this patient's physical therapy, please feel free to call me at [phone]. Thank you for the referral of thispatient. Sincerely, Zachery Pickard DPT, RAMIN, CSCS Balance/Gait/Functional tests Balance/Special Test Scores Oswestry Low Back Score: 6 Lower Extremity Functional Score: 31 <Electronically signed by Zachery Pickard DPT, RAMIN, CLIF> 08/19/22 1551 CC: RADHA Yuan; Dr. Wilver Jones MD ~ EBG Signed [facility] Work Phone: 1(224) 424-763706-30-2023 Discharge summary Author Zachery Pickard [facility] August 14, 2022 3:55pm Note Date/Time August 14, 2022 3:55 pm [facility] Physical Therapy [facility] [address] [place] [address] / REHABILITATION SERVICES DISCHARGE SUMMARY MR#: [id number] Acct: [id number] Name: LENA CHAPARRO Rep #: [id number] : 1980 42 From: Zachery Pickard DPT, RAMIN, CLIF Referring Dr.: RADHA Yuan Status: REG R Insurance: [facility] [employer] INSURANCE Discharge Summary D/C summary: [...] please feel free to call me at [phone]. Thank you for the referral of thispatient. Sincerely, Zachery Pickard, FALLON, OCS, CSCS Balance/Gait/Functional tests Balance/Special Test Scores Oswestry Low Back Score: 6 Lower Extremity Functional Score: 53 <Electronically signed by Zachery Pickard DPT, OCS, CSCS> 08/14/22 1555 CC: RADHA Yuan; Dr. Wilver Jones MD ~ EBG Signed [facility] Work Phone: 1(122) 860-341806-12-2023 History of Present illness Narrative* Rachael Barnett [...] 27, 2022 3:11 PM documented in this encounterCorey Hospital06-07-2023 NoteHNO ID: [id number] Author: RAJESH Pena Service: Nuclear Medicine Author [...] Discontinued PROCEDURE TYPE: NM Stress: 12.3 mCi Da55i-Vazhqnn was administered IV for Rest Imaging at 12:53 by . 32.9 mCi Xs94s-Muhhnwz was administered IV for Stress Imaging at 13:36 by . PATIENT DISCHARGED TO: Ambulatory patient, left [place] department area. A Diagnostic radioactive procedure has taken place, with no further precautions necessary other than routine body substance precautions. More information regarding radiation safety can be found using this link: [email or web address] SIGNATURE: RAJESH Pena PATIENT NAME: Lena Chaparro DATE: July 22, 2022 TIME: 1:16 PM [facility]ER[facility]CON[id number] History of Present illness Narrative* Volodymyr RAJESH Sparks - 07/22/2022 12:45 PM EDT RADIOLOGY SERVICE [...] Discontinued PROCEDURE TYPE: NM Stress: 12.3 mCi [id number] was administered IV for Rest Imaging at 12:53 by . 32.9 mCi [id number] was administered IV for Stress Imaging at 13:36 by . PATIENT DISCHARGED TO: Ambulatory patient, left NM department area. A Diagnostic radioactive procedure has taken place, with no further precautions necessary other than routine body substance precautions. More information regarding radiation safety can be found usingthis link: [email or web address] SIGNATURE: RAJESH Pena PATIENT NAME: Lena Chaparro DATE: July 22, 2022 TIME: 1:16 PM PAGER/CONTACT #: documented in this encounterCore[facility]23 Miscellaneous Notes* Telephone Encounter - Huma Rainey RN - 07/21/2022 1:58 PM EDT Spoke with patient regarding reminder for stress test tomorrow and given instructions. documented in this encounterCorey [facility]06-02-2023 Miscellaneous Notes* Telephone Encounter - Sherwin Soriano RN - 07/17/2022 9:11 AM EDT Phoned patient and given provider's message with verbalized understanding. Given phone number to call and schedule. * Telephone Encounter - Wilver Jones MD - 07/16/2022 4:49 PM EDT Needs additional views. Orders placed. documented in this encounterCorey Hospital05-31-2023 History of Present illness Narrative* Klaudia Cobb APRN.FOOD SERVICE CASHIER - 07/15/2022 3:00 PM EDT Photo Lab Specialist offered: Patient declines. Lena is a 42 [...] L3 SAB0 IAB0 Ectopic0 Multiple0 Live Births3 Traffic Maintenance Officer History LMP: 07/01/2022 (Approximate), Having periods Age at Menarche: Age at First : Age at Menopause: Traffic Maintenance Officer History Comments: Sexual Activity: Yes; Male; Essure [...] external genitalia normal, normal Bartholin's glands, urethra, [place]'s glands, no vulvar lesions, no cervical lesions, [...] year or sooner as needed Klaudia Cobb APRN.CADY documented in this encounterCorey Hospital05-31-2023 History of Present illness Narrative* Emili Majano [...] 15, 2022 2:31 PM documented in this encounterCorey Hospital05-12-2023 Miscellaneous Notes* Telephone Encounter - Katherine Lozano APRN.CNP - 06/26/2022 6:20 PM EDT Done * Telephone Encounter - Augustus Isbell LPN - 06/26/2022 8:17 AM EDT Discuss at OV today. (Routed to provider to file pended order for lab.) Augustus Isbell LPN * Telephone Encounter - Rachell Fajardo Ma - 06/25/2022 8:44 AM EDT Left message for patient to return call. Rachell Fajardo Ma * Telephone Encounter - Wilver Jones MD - 06/24/2022 5:07 PM EDT Calcium was better but vit d is very low. Rx sent. Recheck labs in six weeks. documented in this encounterCorey Hospital05-12-2023 Instructions* Patient Instructions* Katherine Lozano APRN.CNP - 06/26/2022 1:23 PM EDT Schedule stress test. Start prednisone daily for 5 days. Gentle stretching. Moist heat/ice to the lower back. documented in this encounterCorey Hospital05-12-2023 History of Present illness Narrative* Katherine Lozano [...] MG/5 ML INTRAVENOUS SYRINGE - INSERT IV ([place]) - IV DISCONTINUE 2. Acute bilateral low [...] improvement. Katherine Lozano APRN.CADY documented in this encounterCorey Hospital05-08-2023 Miscellaneous Notes* Telephone Encounter - Daja Mcintosh - 06/22/2022 11:58 AM EDT Patient informed Rx sent to pharmacy. Daja Mcintosh * Telephone Encounter - Cheyenne Dhillon LPN - 06/22/2022 11:28 AM EDT Patient calling said she thinks she has yeast rash under her breasts, red rash, itching. She has not been able to wear her bra past few days. Patient is asking for rx to be sent to [facility] pharmacy please. Please advise documented in this encounterCorey Hospital04-20-2023 Miscellaneous Notes* Telephone Encounter - Daja Mcintosh - 06/04/2022 2:40 PM EDT Left detailed message for patient that new Rx was sent to pharmacy and to keep her follow up appointment. VM verified. Advised her to call back with any questions or concerns. Daja Mcintosh * Telephone Encounter - Wilver Jones MD [...] advise, Krissy Thomas RN documented in this encounterCorey Hospital04-17-2023 Miscellaneous Notes* Telephone Encounter - Josue Andrew LPN - 06/01/2022 5:19 PM EDT [...] week * Telephone Encounter - Cheyenne Dhillon LPN - 06/01/2022 2:20 PM EDT Patient calling [...] Abs Lymph 1.00 - 4.00 k/uL 3.29 Casey% % 3.6 Abs Casey <0.87 k/uL 0.34 Eosin% % 1.7 Abs [...] Factor <16 IU/mL <10 documented in this encounterCorey Hospital04-13-2023 History of Present illness Narrative* Wilver Jones [...] <130/80 Wilver Jones MD documented in this encounterCorey Hospital04-04-2023 Miscellaneous Notes* Telephone Encounter - Sharon Weber LPN - 05/19/2022 9:42 AM EDT Patient notified and verbalized understanding of instructions given.Sharon Weber LPN * Telephone Encounter - Sharon Weber LPN - 05/19/2022 9:42 AM EDT ----- Message from Elodia Puente APRN.FOOD SERVICE CASHIER sent at 05/18/2022 7:19 AM EDT ----- [...] Cullen MA - 05/18/2022 5:54 PM EDT left instructing patient to return call to receive results. Yumiko Cullen MA * Telephone Encounter - Yumiko Cullen MA - 05/18/2022 5:53 PM EDT ----- Message from Elodia Puente APRN.FOOD SERVICE CASHIER sent at 05/18/2022 7:19 AM EDT ----- Urine culture did not show clear evidence of infection, however it appears sample may have been contaminated with skin bacteria during collection. She may continue to take antibiotic if it has been helpful. Recommend follow up with PCP to enusre hematuria has resolved. Elodia Puente CNP documented in this encounterCorey Hospital04-01-2023 History of Present illness Narrative* Jennifer Saldivar APRN.CADY - 05/16/2022 2:49 PM EDT This note was created using [employer]. Subjective Lena Chaparro is a 42 year old female. 42 year old female with PMH hyperlipidemia, GERD and bipolar presents for possible UTI. Acute onset a couple nights ago. +burning +frequency +itching Denies fever or chills Denies abdominal pain. Denies vaginal bleeding. Denies vaginal discharge. LMP-last day was 05/13/22 Denies sexual activity. The history is provided by the patient. No english as a second language instructor was used. UTI This is a new [...] ICD10: N89.8 Declines pelvic exam Jennifer Saldivar APRN.CADY documented in this encounterCorey Hospital03-03-2023 Miscellaneous Notes* Telephone Encounter - Cheyenen Burgosmichele NUNEZ - 04/17/2022 11:00 AM EST Patient calling asking to have Physical Therapy order faxed to [facility]. Printed order, face sheet, insurance card copy and faxed to [phone] as requested. documented in this encounterCorey Hospital02-21-2023 Instructions* Patient Instructions* Yarely Dawkins MD - [...] nostril once a day documented in this encounterCorey Hospital02-21-2023 Nurse Note* Miryam Mills RN - 04/07/2022 1:58 PM EST Patient c/o generalized itchiness for last year. She gets welts where she scratches. Taking zyrtec 10 mg once daily with good relief. Also c/o nasal drainage. Prescribed flonase d/t eustachian dysfunction/dizziness-she has not started. documented in this encounterCorey Hospital02-21-2023 History of Present illness Narrative* Yarely Dawkins [...] patient has no history of eczema. 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 Yarely Dawkins MD documented in this encounterCorey Hospital02-15-2023 History of Present illness Narrative* Augustus Isbell LPN - 04/01/2022 2:06 PM EST Ambulatory Ear [...] ear lavage. Pt reclined on exam table. FEED MILLER to recheck. Post-treatment: Post Irrigation Post-treatment: Ear Canal/Tympanic membrane assessed by GIOVANNI Lozano CNP * Katherine Lozano APRN.CADY - 04/01/2022 1:25 PM EST This is [...] or as needed for worsening/no improvement. Katherine Haagen, GENERAL PRODUCTION LABORERINEZ Lozano APRN.CNP The patient indicates understanding of these issues and agrees with the plan. documented in this encounterCorey Hospital02-15-2023 Instructions* Patient Instructions* Katherine Lozano APRN.CNP - 04/01/2022 1:36 PM EST Schedule w/ allergy. Start the flonase. Schedule with physical therapy. documented in this encounterCorey Hospital02-09-2023 History of Present illness Narrative* Valeria Noriega MA - 03/26/2022 8:35 AM EST POPULATION HEALTH NAVIGATION OUTREACH Action/ - [facility] Medicaid Project Last office visit: 02/04/22 (due for Wellness Exam) Diagnosis with HCC gap left: K21.9 - Gastroesophageal reflux disease - KATELYN Last Billed 02/04/2022 F31.9 - Bipolar disorder, unspecified (HCC) - PSYM Last Billed 02/04/2022 INFLUENZA(1) due on 10/16/2021 MAMMOGRAM Never done Voicemail message left and Tissue [employer]eni[employer] message sent offering to assist in scheduling Wellness Exam. Patient Identified by Name and : NO Outreach Outcome/Action Unable to reach patient: Left message 4 the starshart message sent Did you use a PCP flex slot to schedule this appointment? N/A Reason for Outreach HCC or suspected condition Payer: Payor: [employer] / Plan: [employer] / Product Type: Medicaid / Care [...] 26, 2022 8:35 AM documented in this encounterCorey Hospital12-21-2022 History of Present illness Narrative* Wilver Jones [...] F31.9 Wilver Jones MD documented in this encounterCorey Hospital12-15-2022 Miscellaneous Notes* Telephone Encounter - Rachell Fajardo Ma - 01/29/2022 2:28 PM EST Pt notified through [employer] * Telephone Encounter - Sherwin Edwards PA-C - 01/29/2022 1:23 PM EST Note written off through Wednesday. Will need to follow up with Dr. Jones next week while off as I am out. Thanks, Jacob Edwards PA-C * Telephone Encounter - Praveena Oleary Ma - 01/29/2022 8:06 AM EST See update from pt. Praveena Oleary Ma documented in this encounterCorey Hospital12-15-2022 Miscellaneous Notes* Telephone Encounter - Rachell Fajardo [...] 2022 3:00 PM * Telephone Encounter - Josue Andrew LPN - 01/16/2022 12:46 PM EST Patient has been identified by name and date of : Yes Type of form: Accommodation Medical Certification Form received via: Walk in When form is completed, contact patient. Form has been forwarded to: Provider's desk. Provider name: Karen Andrew LPN documented in this encounterCorey Hospital12-14-2022 History of Present illness Narrative* Jennifer Phillips, PT - 01/28/2022 11:23 AM EST Episode Visit Count: 1 Therapist That Will Accept/Oversee The Plan Of Care: Jennifer Phillips Start of Care Date: 01/28/22 Onset Date: 12/30/21 Plan of Care Certification Date: 01/28/22 Next Certification Due Date: 03/04/22 Patient Identified by Name and Date of : Yes REHABILITATION AND SPORTS THERAPY PHYSICAL THERAPY EVALUATION PLAN OF CARE: Assessment: Lena M Krysta presents with diagnosis of vertigo that interferes [...] Planned: 6 Planned Treatment Interventions: Therapeutic exercise (81174);Neuromuscular re- education (93218);Manual therapy (03332);Therapeutic activities (54647);Self- assisted management (66333);Patient/Family/Caregiver Education PLAN FOR NEXT VISIT: Begin seated [...] called EMS and she was transported to [facility]. EKG and D/C summary in scanned docs. F/u with Dr. 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 Patient education as noted. Self-Fpc Management: 1: *vestibular neuritis hand out 2: [...] 47 Jennifer Phillips PT documented in this encounterCorey Hospital12-09-2022 Instructions* Patient Instructions* Sherwin Edwards PA-C - 01/23/2022 12:36 PM EST Valium is a benzodiazepine medication which can help with vertigo. 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 [...] heel to toe.Gait and balance otherwise normal. [place] Hallpike maneuver positive on right with brief nystagmus. ASSESSMENT/PLAN: 1. Chronic vertigo - ICD9: 780.4, ICD10: R42 (primary diagnosis) 2. Tinnitus of right ear - ICD9: 388.30, ICD10: H93.11 Possible Meniere's: educated on diagnosis. Salt restriction discussed. Educated on new medications: administration, side effects, warnings, - CONSULT TO ENT - HYDROCHLOROTHIAZIDE 12.5 MG CAPSULE - DIAZEPAM 5 MG TABLET Sherwin Edwards PA-C documented in this encounterCorey Hospital11-25-2022 History of Present illness Narrative* Wilver Jones [...] called EMS and she was transported to [facility]. EKG and D/C summary in scanned docs. [...] status changes. No focal numbness or weakness. [place] shaky on Wednesday. Orthostatics were negative. She [...] THERAPY Wilver Jones MD documented in this encounterCorey Hospital08-15-2022 Instructions* Patient Instructions* Katherine Lozano APRN.CNP - 09/29/2021 2:29 PM EDT Start the zyrtec -- twice daily X 1 week; then decrease to once daily. Keep me updated. documented in this encounterCorey Hospital08-15-2022 History of Present illness Narrative* Katherine Lozano APRN.CNP - 09/29/2021 2:10 PM EDT This is [...] as needed for worsening/no improvement. Katherine Lozano APRN.FOOD SERVICE CASHIER The patient indicates understanding of these issues and agrees with the plan. This note was partially generated using [employer] voice recognition system. Note was reviewed for accuracy. There may be minor misspellings or grammar miscues with [employer] voice recognition. documented in this encounterCorey Hospital07-13-2022 Miscellaneous Notes* Telephone Encounter - Josue Andrew LPN - 08/27/2021 11:56 AM EDT Patient notified. * Telephone Encounter - Wilver Jones MD - 08/27/2021 11:27 AM EDT rx sent * Telephone Encounter - Collette Sadler Pss - 08/27/2021 10:35 AM EDT Patient is requesting a prescription for a yeast infection. Please send this to [facility] in [place]. When this has been sent or any questions please contact patient at [phone]. Collette Sadler Pss documented in this encounterCorey Hospital07-06-2022 Instructions* Patient Instructions* Katherine Lozano APRN.CNP - 08/20/2021 11:04 AM EDT 1. Start the buspar. Just start the one tablet up to three times daily as needed. If tolerating okay, it is okay to go up to 2 tablets up to three times daily as needed. 2. Recheck in 1 month. documented in this encounterCorey Hospital07-06-2022 History of Present illness Narrative* Katherine Lozano [...] APRN.CADY This note was partially generated using [employer] voice recognition system. Note was reviewed for accuracy. There may be minor misspellings or grammar miscues with Dragon voice recognition. documented in this encounterCorey Hospital04-01-2022 Miscellaneous Notes* Telephone Encounter - Zara Pendleton MA - 05/16/2021 8:08 AM EDT Please see patients MyChart message Thank you Zara Pendleton MA documented in this encounterCorey Hospital09-25-2008 History of Past illness Narrative* Problem Noted Date Resolved Date Bipolar disorder, unspecified 11/10/2007 Overview: With PTSD. Seeing counselor Last Assessment & Plan: Assessment: in remission, stable per pt, no rx Supervision of other high-risk (V23.89) 09/03/2007 10/26/2007 Abdominal pain, right upper quadrant 09/03/2007 10/26/2007 Abnormal findings on screening 008 10/26/2007 documented as of this encounter (statuses as of 05/29/2022) [facility] of Past illness Narrative* Problem Noted Date Resolved Date Bipolar disorder, unspecified 11/10/2007 Overview: With PTSD. Seeing counselor Last Assessment & Plan: Assessment: in remission, stable per pt, no rx Supervision of other high-risk (V23.89) 09/03/2007 10/26/2007 Abdominal pain, right upper quadrant 09/03/2007 10/26/2007 Abnormal findings on screening 008 10/26/2007 documented as of this encounter (statuses as of 06/02/2022) [facility] of Past illness Narrative* Problem Noted Date Resolved Date Bipolar disorder, unspecified 11/10/2007 Overview: With PTSD. Seeing counselor Last Assessment & Plan: Assessment: in remission, stable per pt, no rx Supervision of other high-risk (V23.89) 09/03/2007 10/26/2007 Abdominal pain, right upper quadrant 09/03/2007 10/26/2007 Abnormal findings on screening 008 10/26/2007 documented as of this encounter (statuses as of 06/05/2022) [facility] Narrative* Problem Noted Date Resolved Date Bipolar disorder, unspecified 11/10/2007 Overview: With PTSD. Seeing counselor Last Assessment & Plan: Assessment: in remission, stable per pt, no rx Supervision of other high-risk (V23.89) 09/03/2007 10/26/2007 Abdominal pain, right upper quadrant 09/03/2007 10/26/2007 Abnormal findings on screening 008 10/26/2007 documented as of this encounter (statuses as of 06/22/2022) [facility] Narrative* Problem Noted Date Resolved Date Bipolar disorder, unspecified 11/10/2007 Overview: With PTSD. Seeing counselor Last Assessment & Plan: Assessment: in remission, stable per pt, no rx Supervision of other high-risk (V23.89) 09/03/2007 10/26/2007 Abdominal pain, right upper quadrant 09/03/2007 10/26/2007 Abnormal findings on screening 008 10/26/2007 documented as of this encounter (statuses as of 06/27/2022) [facility] Narrative* Problem Noted Date Resolved Date Bipolar disorder, unspecified 11/10/2007 Overview: With PTSD. Seeing counselor Last Assessment & Plan: Assessment: in remission, stable per pt, no rx Supervision of other high-risk (V23.89) 09/03/2007 10/26/2007 Abdominal pain, right upper quadrant 09/03/2007 10/26/2007 Abnormal findings on screening 008 10/26/2007 documented as of this encounter (statuses as of 06/27/2022) [facility] Narrative* Problem Noted Date Resolved Date Bipolar disorder, unspecified 11/10/2007 Overview: With PTSD. Seeing counselor Last Assessment & Plan: Assessment: in remission, stable per pt, no rx Supervision of other high-risk (V23.89) 09/03/2007 10/26/2007 Abdominal pain, right upper quadrant 09/03/2007 10/26/2007 Abnormal findings on screening 008 10/26/2007 documented as of this encounter (statuses as of 07/16/2022) [facility] Narrative* Problem Noted Date Resolved Date Bipolar disorder, unspecified 11/10/2007 Overview: With PTSD. Seeing counselor Last Assessment & Plan: Assessment: in remission, stable per pt, no rx Supervision of other high-risk (V23.89) 09/03/2007 10/26/2007 Abdominal pain, right upper quadrant 09/03/2007 10/26/2007 Abnormal findings on screening 008 10/26/2007 documented as of this encounter (statuses as of 07/17/2022) [facility] Narrative* Problem Noted Date Resolved Date Bipolar disorder, unspecified 11/10/2007 Overview: With PTSD. Seeing counselor Last Assessment & Plan: Assessment: in remission, stable per pt, no rx Supervision of other high-risk (V23.89) 09/03/2007 10/26/2007 Abdominal pain, right upper quadrant 09/03/2007 10/26/2007 Abnormal findings on screening 008 10/26/2007 documented as of this encounter (statuses as of 07/21/2022) [facility] Narrative* Problem Noted Date Resolved Date Bipolar disorder, unspecified 11/10/2007 Overview: With PTSD. Seeing counselor Last Assessment & Plan: Assessment: in remission, stable per pt, no rx Supervision of other high-risk (V23.89) 09/03/2007 10/26/2007 Abdominal pain, right upper quadrant 09/03/2007 10/26/2007 Abnormal findings on screening 008 10/26/2007 documented as of this encounter (statuses as of 07/23/2022) [facility] Narrative* Problem Noted Date Resolved Date Bipolar disorder, unspecified 11/10/2007 Overview: With PTSD. Seeing counselor Last Assessment & Plan: Assessment: in remission, stable per pt, no rx Supervision of other high-risk (V23.89) 09/03/2007 10/26/2007 Abdominal pain, right upper quadrant 09/03/2007 10/26/2007 Abnormal findings on screening 008 10/26/2007 documented as of this encounter (statuses as of 07/23/2022) [facility] Narrative* Problem [...] of this encounter (statuses as of 09/02/2022) [facility] Narrative* Problem [...] of this encounter (statuses as of 10/07/2022) [facility] Narrative* Problem [...] of this encounter (statuses as of 10/13/2022) [facility] Narrative* Problem [...] of this encounter (statuses as of 10/14/2022) [facility] Narrative* Problem [...] of this encounter (statuses as of 10/14/2022) [facility] Narrative* Problem [...] of this encounter (statuses as of 11/04/2022) [facility] Narrative* Problem [...] of this encounter (statuses as of 12/11/2022) [facility] Narrative* Problem [...] of this encounter (statuses as of 12/20/2022) [facility]arrative* Problem [...] of this encounter (statuses as of 12/20/2022) [facility]arrative* Problem [...] of this encounter (statuses as of 12/20/2022) [facility]arrative* Problem [...] of this encounter (statuses as of 12/26/2022) [facility]arrative* Problem [...] of this encounter (statuses as of 01/13/2023) [facility]* Problem [...] of this encounter (statuses as of 01/14/2023) [facility]* Problem [...] of this encounter (statuses as of 03/24/2023) [facility]* Problem [...] of this encounter (statuses as of 03/24/2023) [facility]ative* Problem [...] of this encounter (statuses as of 03/25/2023) [facility]ative* Problem [...] of this encounter (statuses as of 03/26/2023) [facility]* Problem [...] of this encounter (statuses as of 03/29/2023) [facility]* Problem [...] of this encounter (statuses as of 04/08/2023) [facility]* Problem [...] of this encounter (statuses as of 05/07/2023) [facility]* Problem [...] of this encounter (statuses as of 05/19/2023) [facility]* Problem [...] of this encounter (statuses as of 05/28/2023) [facility]* Problem Noted Date Resolved Date Supervision of other high-risk (V23.89) 09/03/2007 10/26/2007 Abdominal pain, right upper quadrant 09/03/2007 10/26/2007 Abnormal findings on screening 008 10/26/2007 documented as of this encounter (statuses as of 07/22/2021) [facility] History of Past illness Narrative* Problem Noted Date Resolved Date Supervision of other high-risk (V23.89) 09/03/2007 10/26/2007 Abdominal pain, right upper quadrant 09/03/2007 10/26/2007 Abnormal findings on screening 2 008 10/26/2007 documented as of this encounter (statuses as of 08/20/2021) [facility] History of Past illness Narrative* Problem Noted Date Resolved Date Supervision of other high-risk (V23.89) 09/03/2007 10/26/2007 Abdominal pain, right upper quadrant 09/03/2007 10/26/2007 Abnormal findings on screening 008 10/26/2007 documented as of this encounter (statuses as of 08/27/2021) [facility] History of Past illness Narrative* Problem Noted Date Resolved Date Supervision of other high-risk (V23.89) 09/03/2007 10/26/2007 Abdominal pain, right upper quadrant 09/03/2007 10/26/2007 Abnormal findings on screening 008 10/26/2007 documented as of this encounter (statuses as of 09/29/2021) [facility] History of Past illness Narrative* Problem Noted Date Resolved Date Supervision of other high-risk (V23.89) 09/03/2007 10/26/2007 Abdominal pain, right upper quadrant 09/03/2007 10/26/2007 Abnormal findings on screening 2 008 10/26/2007 documented as of this encounter (statuses as of 01/09/2022) [facility] History of Past illness Narrative* Problem Noted Date Resolved Date Supervision of other high-risk (V23.89) 09/03/2007 10/26/2007 Abdominal pain, right upper quadrant 09/03/2007 10/26/2007 Abnormal findings on screening 2 008 10/26/2007 documented as of this encounter (statuses as of 01/23/2022) [facility] History of Past illness Narrative* Problem Noted Date Resolved Date Supervision of other high-risk (V23.89) 09/03/2007 10/26/2007 Abdominal pain, right upper quadrant 09/03/2007 10/26/2007 Abnormal findings on screening 2 008 10/26/2007 documented as of this encounter (statuses as of 01/28/2022) [address]19-2008 History of Past illness Narrative* Problem Noted Date Resolved Date Supervision of other high-risk (V23.89) 09/03/2007 10/26/2007 Abdominal pain, right upper quadrant 09/03/2007 10/26/2007 Abnormal findings on screening 008 10/26/2007 documented as of this encounter (statuses as of 01/29/2022) [facility] History of Past illness Narrative* Problem Noted Date Resolved Date Supervision of other high-risk (V23.89) 09/03/2007 10/26/2007 Abdominal pain, right upper quadrant 09/03/2007 10/26/2007 Abnormal findings on screening 008 10/26/2007 documented as of this encounter (statuses as of 02/04/2022) [address]19-2008 History of Past illness Narrative* Problem Noted Date Resolved Date Supervision of other high-risk (V23.89) 09/03/2007 10/26/2007 Abdominal pain, right upper quadrant 09/03/2007 10/26/2007 Abnormal findings on screening 008 10/26/2007 documented as of this encounter (statuses as of 03/26/2022) [facility] History of Past illness Narrative* Problem Noted Date Resolved Date Supervision of other high-risk (V23.89) 09/03/2007 10/26/2007 Abdominal pain, right upper quadrant 09/03/2007 10/26/2007 Abnormal findings on screening 2 008 10/26/2007 documented as of this encounter (statuses as of 03/29/2022) [facility] History of Past illness Narrative* Problem Noted Date Resolved Date Supervision of other high-risk (V23.89) 09/03/2007 10/26/2007 Abdominal pain, right upper quadrant 09/03/2007 10/26/2007 Abnormal findings on screening 2 008 10/26/2007 documented as of this encounter (statuses as of 04/03/2022) [address]19-2008 History of Past illness Narrative* Problem Noted Date Resolved Date Supervision of other high-risk (V23.89) 09/03/2007 10/26/2007 Abdominal pain, right upper quadrant 09/03/2007 10/26/2007 Abnormal findings on screening 008 10/26/2007 documented as of this encounter (statuses as of 04/06/2022) [facility] History of Past illness Narrative* Problem Noted Date Resolved Date Supervision of other high-risk (V23.89) 09/03/2007 10/26/2007 Abdominal pain, right upper quadrant 09/03/2007 10/26/2007 Abnormal findings on screening 008 10/26/2007 documented as of this encounter (statuses as of 04/09/2022) [facility] History of Past illness Narrative* Problem Noted Date Resolved Date Supervision of other high-risk (V23.89) 09/03/2007 10/26/2007 Abdominal pain, right upper quadrant 09/03/2007 10/26/2007 Abnormal findings on screening 008 10/26/2007 documented as of this encounter (statuses as of 04/17/2022) [facility] History of Past illness Narrative* Problem Noted Date Resolved Date Supervision of other high-risk (V23.89) 09/03/2007 10/26/2007 Abdominal pain, right upper quadrant 09/03/2007 10/26/2007 Abnormal findings on screening 008 10/26/2007 documented as of this encounter (statuses as of 05/16/2022) [facility] History of Past illness Narrative* Problem Noted Date Resolved Date Supervision of other high-risk (V23.89) 09/03/2007 10/26/2007 Abdominal pain, right upper quadrant 09/03/2007 10/26/2007 Abnormal findings on screening 008 10/26/2007 documented as of this encounter (statuses as of 05/19/2022) [facility] June 13, 2022 7:56am Note Date/Time June 13, 2022 7:4 6am [facility] Medical Records Department [address] [place] [address] Emergency Department Summary 06/13/22 MR#: [id number] Acct: [id number] Name: LENA CHAPARRO Rep #:[id number] : 1980 42 From: Fabrizio Vanegas DO [...] secondary to this comes in for evaluation [facility] Medical History (Updated 06/13/22 @ 07:56 by [...] % (Auto) 50.6 Lymph % (Auto) 40.2 Casey % (Auto) 6.2 Eos % (Auto) 2.5 [...] your Primary Care Provider. Call [facility] ([phone]) or report to the closest Emergency Room. Call 911 if necessary. 06/13/22 0756 <Electronically signed by Fabrizio Vanegas DO> Cosigner Signature (if applicable): CC: Dr. Wilver Jones MD ~ Signed [facility] Work Phone: Discharge summary Author Logan Yañez [facility] Note Date/Time September 04, 2024 5:09 am [facility] Medical Records Department [address] [place] [address] Emergency Department Summary 09/04/24 MR#: [id number] Acct: [id number] Name: LENA CHAPARRO Rep #:[id number] : 1980 44 From: Logan Yañez MD PCP: Dr. Wilver Jones MD Status:REG E R Location: ED HPI History of Present Illness Chief Complaint: Other, Pain/Inj Detail of Chief Complaint: rash Informant: patient Narrative Narrative: 44-year-old female presents with an inframammary itchy, burning rash for 3 days. She states she has used nystatin powder on this before when it has occurred, asit has been diagnosed as a yeast infection in the past, she states usually clears up within 2 days of doing that. However since this has been going on for3 and was bothering her tonight, she presents for evaluation. She denies any systemic symptoms. She denies being a diabetic. [facility] Medical History Edentulous Anxiety Arthritis High cholesterol Gastric reflux Shortness of breath on exertion Smoker History of edema History of stress test History of cyst of breast Vertigo Encounter for screening for COVID-19 Home Medications ?Medication ?Instructions ?Recorded ?Last Taken ?Type cetirizine 10 mg tablet 10 mg PO DAILY 06/13/22 09/0 10/07 History fluoxetine 10 mg capsule 10 mg PO DAILY 05/02/23 Unkn own History fluoxetine 20 mg capsule 20 mg PO DAILY 05/02/23 Unkn own History hydroxyzine pamoate 25 mg capsule 25 mg PO TID 03/17/2 4 Unknown History diclofenac potassium 50 mg tablet 50 mg PO BID 4 Unknown History omeprazole 40 mg capsule,delayed 40 mg PO QDAY 4 Unknown History release pregabalin 50 mg capsule 50 mg PO TID 12/27/23 Unknow n History hydroxyzine pamoate 50 mg capsule 50 mg PO BID 5 Unknown History nystatin 100,000 unit/gram topical 1 applic topical 4X /DAY 09/04/24 Unknown History powder nystatin-triamcinolone 100,000 1 applic topical BID 1 week #15 09/04/24 Unknown Rx unit/g-0.1 % topical cream grams Allergy/AdvReac Type Severity Reaction Status Date / Time tioconazole (From Vagistat-1) Allergy Swelling Verified 09/04/24 04:43 Family History Other Angina at rest Bipolar 1 disorder Depression Heart disease Surgical History H/O foot surgery History of hernia surgery History of decompression of ulnar nerve History of carpal tunnel release of both wrists Social History Smoking Status: Current every day smoker tobacco type: cigarettes alcohol intake: never substance use type: does not use ROS ROS ED Constitutional Constitutional ED: Denies chills or fever(s) Eyes Eyes: Denies change in vision or diplopia ENT ENT ED: Denies rhinorrhea or sore throat Cardiovascular Cardiovascular: Denies chest pain or palpitations Respiratory/Chest Respiratory/Chest: Denies cough or dyspnea Gastrointestinal Gastrointestinal: Denies abdominal pain, diarrhea, nausea or vomiting Genitourinary Genitourinary ED: Denies dysuria or hematuria Musculoskeletal Musculoskeletal: Denies back pain or neck pain Integumentary Reports rash; Denies abscess Neurologic Neurologic: Denies headache(s), paresthesias or weakness Psychiatric Psychiatric: Denies suicidal thoughts EXAM Physical Exam Const Vital Signs: 09/04/24 04:44 09/04/24 04:44 Temperature 98.1 F Temperature Source Oral Pulse Rate 88 Respiratory Rate 18 Respiratory Effort Normal Respiratory Pattern Normal Blood Pressure 156/94 H Blood Pressure Mean 114 Pulse Ox 99 Oxygen Delivery Method Room Air Positive well nourished, well developed and obese General Appearance ED: well developed and NAD Nutritional Appearance: obese Eyes PERRL and EOMs intact bilaterally Neck full ROM and supple Chest Wall Chest Narrative: Inframammary bilateral intertriginous erythematous rash, it is dry not moist, itis blanching erythema, there is no scaling or scabbing, no petechia no bullae, no satellite lesions. Mildly tender patient states it [place] when we touch it. Resp normal respiratory effort Neuro oriented x3, CN's II-XII intact bilaterally and no sensory deficits noted Sensorium / Orientation: awake and alert Motor Exam: strength 5/5 throughout MDM MDM MDM Narrative Medical decision making narrative: Possible this is cutaneous candidiasis intertriginous below her breast, however does not have that classic appearance. May be some other type of heat rash, contact dermatitis, or it could be fungal. I am prescribing her nystatin/triamcinolone cream to try and advised to follow-up she is comfortable with that plan. Discharge Plan Triage Chief Complaint: Other, Pain/Inj ED Provider: Logan Yañez Dx/Rx/DC Orders Clinical Impression: Intertriginous dermatitis associated with moisture Instructions: ED Erythema Prescriptions: New nystatin-triamcinolone 100,000-0.1 unit/g-% cream 1 applic topical BID 7 Days Qty: 15 0RF No Action omeprazole 40 mg capsule,delayed release(DR/EC) 40 mg PO QDAY pregabalin 50 mg capsule 50 mg PO TID diclofenac potassium 50 mg tablet 50 mg PO BID cetirizine 10 mg tablet 10 mg PO DAILY Patient Comments: TAKE 1 TABLET BY MOUTH DAILY fluoxetine 10 mg capsule 10 mg PO DAILY fluoxetine 20 mg capsule 20 mg PO DAILY hydroxyzine pamoate 25 mg capsule 25 mg PO TID hydroxyzine pamoate 50 mg capsule 50 mg PO BID nystatin 100,000 unit/gram powder 1 applic topical 4X/DAY Primary Care Provider: Wilver Jones Referrals: Wilver Jones MD [Primary Care Provider] - 3-5 Days if not improving Print Language: Micronesian Disposition Disposition: Home, Self Care What to do if you have Problems For any increased pain, shortness of breath, bleeding, nausea or vomiting, chestpain, or any unexpected problems, contact your Primary Care Provider. Call [facility] ([phone]) or report to the closest Emergency Room. Call 911 if necessary. 09/04/24 2319 <Electronically signed by Logan Yañez MD> Cosigner Signature (if applicable): CC: Dr. Wilver Jones MD ~ Signed [facility] Work Phone: evaluation note* Diagnosis ENRIKE (generalized anxiety disorder)- Primary Generalized anxiety disorder documented in this encounter [facility] note* Diagnosis Dermatographic urticaria- Primary documented in this encounter [facility] noteNo assessment information availableWooOhio[facility] Work Phone: evaluation note* Diagnosis Onset Date Resolution Status Vertigo acute [facility] Work Phone: evaluation note* Diagnosis Vertigo- Primary Dizziness and giddiness documented in this encounter [facility] note* Diagnosis Chronic vertigo- Primary Tinnitus of right ear Unspecified tinnitus documented in this encounter [facility] note* Diagnosis Vertigo- Primary Dizziness and giddiness [facility] Diagnosis Vertigo- Primary Dizziness and giddiness Gastroesophageal reflux disease, unspecified whether esophagitis present Bipolar affective disorder, remission status unspecified ([facility]) documented in this encounter [facility] note* Diagnosis Encounter for screening mammogram for malignant neoplasm of breast- Primary Other screening mammogram documented in this encounter [facility] note* Diagnosis Eustachian tube disorder, left- Primary Dermatographic urticaria Itching Unspecified pruritic disorder Dizziness Dizziness and giddiness Bilateral impacted cerumen Impacted cerumen documented in this encounter [facility] note* Diagnosis Encounter for screening mammogram for breast cancer documented in this encounter [facility] note* Diagnosis Pruritic disorder- Primary Unspecified pruritic disorder Dermatographic urticaria Chronic rhinitis Postnasal drip [facility]* Diagnosis Dysuria- Primary Itching in the vaginal area Pruritus of genital organs [facility]* Diagnosis Anxiety with depression- Primary Mixed hyperlipidemia Vertigo Dizziness and giddiness Myalgias Plantar fasciitis Plantar fascial fibromatosis Elevated blood pressure reading without diagnosis of hypertension documented in this encounter [facility] note* Diagnosis Hyperglycemia- Primary Other abnormal glucose Hypercalcemia documented in this encounter [facility] note* Diagnosis Candidiasis- Primary Candidiasis of unspecified site [facility] Other chest pain- Primary Acute bilateral low back pain without sciatica ENRIKE (generalized anxiety disorder) Generalized anxiety disorder [facility] Vitamin D deficiency- Primary Unspecified vitamin D deficiency [facility] Diagnosis Encounter for gynecological examination with [...] of status migrainosus [facility] Diagnosis Abnormal mammogram- Primary Abnormal mammogram, unspecified [facility] Diagnosis Surveillance of previously prescribed intrauterine contraceptive device- Primary Intertrigo Other specified erythematous condition Breast tenderness in female Mastodynia [facility] Preop examination- Primary Preoperative examination, unspecified Plantar fasciitis Plantar fascial fibromatosis [facility] Diagnosis Abnormal mammogram- Primary Abnormal mammogram, unspecified [facility] Diagnosis Onset Date Resolution Status Plantar fascial fibromatosis acute [facility] Work Phone: Evaluation note* Diagnosis GERD without esophagitis- Primary Esophageal reflux [facility] Diagnosis Dermatographic urticaria Itching Unspecified pruritic disorder [facility] Diagnosis Encounter for screening mammogram for malignant neoplasm of breast Other screening mammogram [facility] Diagnosis Dysmenorrhea [facility] Diagnosis Abnormal mammogram Abnormal mammogram, unspecified [facility] Diagnosis Diarrhea, unspecified type- Primary Gastroesophageal reflux disease without esophagitis Esophageal reflux Rectal bleeding Hemorrhage of rectum and anus [facility] Diagnosis Mixed hyperlipidemia- Primary Gastroesophageal reflux disease, unspecified whether esophagitis present Anxiety with depression Vitamin D deficiency Unspecified vitamin D deficiency Need for hepatitis C screening test Special screening examination for other specified viral diseases Screening for HIV (human immunodeficiency virus) Special screening examination for other specified viral diseases [facility]* Diagnosis Vitamin D deficiency- Primary Unspecified vitamin D deficiency [facility]* Diagnosis Foot pain, bilateral- Primary Pain in limb [facility]* Diagnosis Pain in both feet- Primary Pain in limb [facility]* Diagnosis Right acute suppurative otitis media- Primary Acute suppurative otitis media without spontaneous rupture of eardrum Bilateral impacted cerumen Impacted cerumen [facility] Diagnosis Bacterial sinusitis- Primary Unspecified sinusitis (chronic) Foot pain, right Pain in limb Sciatica, right side Lymphadenopathy, cervical Enlargement of lymph nodes History of otitis Unspecified problem with head, neck, or trunk [facility]* Diagnosis Tarsal tunnel syndrome of right side- Primary Tarsal tunnel syndrome Gastroesophageal reflux disease, unspecified whether esophagitis present Anxiety with depression Neuropathy of right peroneal nerve [facility]* Diagnosis Urinary frequency- Primary [facility] Diagnosis Dermatographic urticaria Itching Unspecified pruritic disorder [facility] Diagnosis Dizziness- Primary Dizziness and giddiness [facility] Diagnosis Pre-operative examination- Primary Preoperative examination, [...] vitamin D deficiency [facility] Diagnosis Pre-operative examination- Primary Preoperative examination, unspecified Ulnar neuropathy at wrist, right Carpal tunnel syndrome of right wrist Carpal tunnel syndrome Mixed hyperlipidemia Gastroesophageal reflux disease, esophagitis presence not specified Bipolar affective disorder, remission status unspecified (HCC) Encounter for screening for malignant neoplasm of breast, unspecified screening modality- Primary Abnormal mammogram Abnormal mammogram, unspecified documented in this encounter [facility] note* Diagnosis Pre-operative examination- Primary Preoperative examination, unspecified Ulnar neuropathy at wrist, right Carpal tunnel syndrome of right wrist Carpal tunnel syndrome Mixed hyperlipidemia Gastroesophageal reflux disease, esophagitis presence not specified Bipolar affective disorder, remission status unspecified (HCC) Dermatographic urticaria Itching Unspecified pruritic disorder documented in this encounter [facility] note* Diagnosis Pre-operative examination- Primary Preoperative examination, unspecified Ulnar neuropathy at wrist, right Carpal tunnel syndrome of right wrist Carpal tunnel syndrome Mixed hyperlipidemia Gastroesophageal reflux disease, esophagitis presence not specified Bipolar affective disorder, remission status unspecified ([facility]) Intertrigo Other specified erythematous condition documented in this encounter [facility] note* Diagnosis Pre-operative examination- Primary Preoperative examination, unspecified Ulnar neuropathy at wrist, right Carpal tunnel syndrome of right wrist Carpal tunnel syndrome Mixed hyperlipidemia Gastroesophageal reflux disease, esophagitis presence not specified Bipolar affective disorder, remission status unspecified ([facility]) COVID-19- Primary documented in this encounter [facility] note* Diagnosis Pre-operative examination- Primary Preoperative examination, unspecified Ulnar neuropathy at wrist, right Carpal tunnel syndrome of right wrist Carpal tunnel syndrome Mixed hyperlipidemia Gastroesophageal reflux disease, esophagitis presence not specified Bipolar affective disorder, remission status unspecified ([facility]) Sore throat- Primary Acute pharyngitis Bilateral impacted cerumen Impacted cerumen URI, acute Acute upper respiratory infections of unspecified site documented in this encounter [facility] note* Diagnosis Pre-operative examination- Primary Preoperative examination, unspecified Ulnar neuropathy at wrist, right Carpal tunnel syndrome of right wrist Carpal tunnel syndrome Mixed hyperlipidemia Gastroesophageal reflux disease, esophagitis presence not specified Bipolar affective disorder, remission status unspecified ([facility]) Encounter for screening mammogram for breast cancer [facility] Additional Instructions Please talk to your family doctor about obtaining outpatient ultrasound and or biopsy of your lymph nodes based on the recurrent swelling and return to the ER should you have any further concernsWPrem[facility] Work Phone: Hospital Discharge instructions Additional Instructions Your work-up today shows no sign of acute cardiac event or lung pathology. Follow-up with your family doctor for repeat evaluation and return to the ER should you have any further concernsWPremier [facility] Work Phone: Hospital Discharge instructions Additional Instructions Follow-up with your PCP in 3 to 5 days, return for any worsening of symptoms. [facility] Work Phone: Hospital Discharge instructions Additional Instructions [...] symptoms of infection or DVT Implant Used?: [facility] Work Phone: Reason for referral (narrative)* Diagnostic Procedure Only (Routine) - Pending Review Specialty Diagnoses / Procedures Referred By Ashish riggins Referred To Contact [facility] Diagnoses Encounter for screening mammogram for breast cancer Procedures ANSELMO SCREENING SCREENING MAMMOGRAPHY BI 2-VIEW BREAST INC CAD Wilver Jones MD [address] [place] [address] [facility] [address] [place] [address] Referral ID Status Reason Start Date Expiration Date Visits Requested Visits Authorized [phone] Pending Review Auto-Generat ed Referral 04/01/2022 05/01/2023 1 1 [facility] for referral (narrative)* Diagnostic Procedure Only (Routine) - Pending Review Specialty Diagnoses / Procedures Referred By Ashish riggins Referred To Contact MOLECULAR & FUNCTIONAL IMAGING Diagnoses Other chest pain Procedures NM CARDIAC PERF STRESS/PHARM MYOCARDIAL SPECT MULTIPLE STUDIES Katherine Lozano, GENERAL PRODUCTION LABORER.FOOD SERVICE CASHIER [address] [place] [address] Molecular & Functional Imaging [address] [place] [address] Referral ID Status Reason Start Date Expiration Date Visits Requested Visits Authorized [id number] Pending Review Auto-Generat ed Referral 06/26/2022 07/26/2023 1 1 [facility] for referral (narrative)* Diagnostic Procedure Only (Routine) - Authorized Specialty Diagnoses / Procedures Referred By Contac t Referred To Contact US IMAGING Diagnoses Dysmenorrhea Procedures US FEMALE PELVIS TRANSVAG US TRANSVAGINAL Klaudia Cobb APRN.CNP [address] [place] [address] Us Imaging Referral ID Status Reason Start Date Expiration Date Visits Requested Visits Authorized [id number] Authorized Auto-Generat ed Referral 07/15/2022 08/14/2023 1 1 * Outpatient Procedure (Routine) - Pending Review Specialty Diagnoses / Procedures Referred By Contac t Referred To Contact [facility] Diagnoses Dysmenorrhea Menstrual migraine without status migrainosus, not intractable Procedures INSERT INTRAUTERINE DEVICE LEVONORGESTREL IU 52MG 5 YR INSERT INTRAUTERINE DEVICE Klaudia Cobb APRN.CNP [address] [place] [address] [facility] [address] [place] [address] Referral ID Status Reason Start Date Expiration Date Visits Requested Visits Authorized [id number] Pending Review Auto-Generat ed Referral 07/15/2022 07/15/2023 1 1 * Diagnostic Procedure Only (Routine) - Pending Review Specialty Diagnoses / Procedures Referred By Contac t Referred To Contact [facility] Diagnoses Dysmenorrhea Procedures PELVIC US WHI US PELVIC NONOBSTETRIC REAL-TIME IMAGE COMPLETE Klaudia Cobb APRN.CNP [address] [place] [address] [address] Referral ID Status Reason Start Date Expiration Date Visits Requested Visits Authorized [id number] Pending Review Auto-Generat ed Referral 07/15/2022 07/15/2023 [...] BI 2-VIEW BREAST INC Klaudia Garcia APRN.CNP [address] [place] [address] Br Imaging [address] [place] [address] Referral ID Status Reason Start Date Expiration Date Visits Requested Visits Authorized [id number] Pending Review Auto-Generat ed Referral 07/15/2022 08/14/2023 1 1 [facility] for referral (narrative)* Diagnostic Procedure Only (Routine) - Pending Review Specialty Diagnoses / Procedures Referred By Ashish riggins Referred To Contact BR IMAGING Diagnoses Abnormal mammogram Procedures US BREAST LTD RIGHT US BREAST UNI REAL TIME WITH IMAGE LIMITED Wilver Jones MD [address] [place] [address] Br Imaging [address] [place] [address] Referral ID Status Reason Start Date Expiration Date Visits Requested Visits Authorized [id number] Pending Review Auto-Generat ed Referral 07/16/2022 08/15/2023 1 1 * Diagnostic Procedure Only (Routine) - Pending Review Specialty Diagnoses / Procedures Referred By Ashish riggins Referred To Contact BR IMAGING Diagnoses Abnormal mammogram Procedures US BREAST LTD LEFT US BREAST UNI REAL TIME WITH IMAGE LIMITED Wilver Jones MD [address] [place] [address] [facility] [address] [place] [address] Referral ID Status Reason Start Date Expiration Date Visits Requested Visits Authorized [id number] Pending Review Auto-Generat ed Referral 07/16/2022 08/15/2023 1 1 * Diagnostic Procedure Only (Routine) - Pending Review Specialty Diagnoses / Procedures Referred By Ashish riggins Referred To Contact BR IMAGING Diagnoses Abnormal mammogram Procedures ANSELMO DIAGNOSTIC BILATERAL DIAGNOSTIC MAMMOGRAPHY COMPUTER-AIDED DETCJ BI Wilver Jones MD [address] [place] [address] Br Imaging [address] [place] [address] Referral ID Status Reason Start Date Expiration Date Visits Requested Visits Authorized [id number] Pending Review Auto-Generat ed Referral 07/16/2022 08/15/2023 1 1 [facility] for referral (narrative)* Diagnostic Procedure Only (Routine) - Pending Review Specialty Diagnoses / Procedures Referred By Ashish riggins Referred To Contact BR IMAGING Diagnoses Abnormal mammogram Procedures US BREAST LTD RIGHT US BREAST UNI REAL TIME WITH IMAGE LIMITED Wilver Jones MD [address] [place] [address] Br Imaging [address] [place] [address] Referral ID Status Reason Start Date Expiration Date Visits Requested Visits Authorized [id number] Pending Review Auto-Generat ed Referral 04/15/2023 11/12/2023 1 1 * Diagnostic Procedure Only (Routine) - Pending Review Specialty Diagnoses / Procedures Referred By Ashish riggins Referred To Contact BR IMAGING Diagnoses Abnormal mammogram Procedures ANSELMO DIAGNOSTIC RIGHT DIAGNOSTIC MAMMOGRAPHY COMPUTER-AIDED DETCJ UNI Wilver Jones MD [facility] [place] [address] Br Imaging [address] [place] [address] Referral ID Status Reason Start Date Expiration Date Visits Requested Visits Authorized [id number] Pending Review Auto-Generat ed Referral 04/15/2023 11/12/2023 1 1 [facility] for referral (narrative)* Diagnostic Procedure Only (Routine) - Closed Specialty Diagnoses / Procedures [facility] To [facility] BR [facility] Diagnoses Encounter for screening mammogram for malignant neoplasm of breast Procedures ANSELMO SCREENING SCREENING MAMMOGRAPHY BI 2-VIEW BREAST INC CAD Wilver Jones MD [address] [place] [address] Br Imaging [address] [place] [address] Referral ID Status Reason Start Date Expiration Date V isits Requested Visits Authorized [id number] Closed Auto-Generate d Referral 07/09/2022 08/08/2023 1 1 [facility] for referral (narrative)* Diagnostic Procedure Only (Routine) - Closed Specialty Diagnoses / Procedures Referred By Ashish t Referred To Contact US IMAGING Diagnoses Dysmenorrhea Procedures US FEMALE PELVIS TRANSVAG US TRANSVAGINAL Klaudia Cobb APRN.CNP [address] [place] [address] Us Imaging [facility] Referral ID Status Reason Start Date Expiration Date V isits Requested Visits Authorized [id number] Closed Auto-Generate d Referral 07/15/2022 08/14/2023 1 1 [facility] for referral (narrative)* Diagnostic Procedure Only (Routine) - Closed Specialty Diagnoses / Procedures [facility] Referred To Contact BR IMAGING Diagnoses Abnormal mammogram Procedures US BREAST LTD RIGHT US BREAST UNI REAL TIME WITH IMAGE LIMITED Wilver Jones MD [address] [place] [address] Br Imaging [address] [place] [address] Referral ID Status Reason Start Date Expiration Date V isits Requested Visits Authorized [id number] Closed Auto-Generate d Referral 07/16/2022 08/15/2023 1 1 [facility] for referral (narrative)* Outpatient Procedure (Routine) - Authorized Specialty Diagnoses / Procedures Referred By Ashish riggins Referred To Contact [facility] [place] Diagnoses Diarrhea, unspecified type Rectal bleeding Procedures COLONOSCOPY DIAGNOSTIC COLONOSCOPY FLX DX W/COLLJ SPEC WHEN PFRMLuis Angel Lee MD [address] [place] [address] [facility] [address] [place] [address] Referral ID Status Reason Start Date Expiration Date Visits Requested Visits Authorized [id number] Authorized Auto-Generat ed Referral 3 12/26/2023 1 1 * Outpatient Procedure (Routine) - Authorized Specialty Diagnoses / Procedures Referred By Ashish riggins Referred To Contact [facility] [place] Diagnoses Gastroesophageal reflux disease without esophagitis Diarrhea, unspecified type Rectal bleeding Procedures EGD DIAGNOSTIC ESOPHAGOGASTRODUODENOSC OPY TRANSORAL DIAGNOSTIC Luis Angel Lopez MD [address] [place] [address] [address] Referral ID Status Reason Start Date Expiration Date Visits Requested Visits Authorized [id number] Authorized Auto-Generat ed Referral 3 12/26/2023 1 1 [facility] for referral (narrative)* Diagnostic Procedure Only (Routine) - New Request Specialty Diagnoses / Procedures Referred By Ashish riggins Referred To Contact BR IMAGING Diagnoses Encounter for screening mammogram for malignant neoplasm of breast Procedures ANSELMO SCREENING W LAUREANO SCREENING DIGITAL BREAST TOMOSYNTHESIS BI SCREENING MAMMOGRAPHY BI 2-VIEW BREAST INC CAD Wilver Jones MD [address] [place] [address] Br Imaging [address] [place] [address] Referral ID Status Reason Start Date Expiration Date Visits Requested Visits Authorized [id number] New Request Auto-Generat ed Referral 10/19/2023 11/17/2024 1 1 [facility] for referral (narrative)* Diagnostic Procedure Only (Routine) - New Request Specialty Diagnoses / Procedures Referred By Ashish riggins Referred To Contact BR IMAGING Diagnoses Abnormal mammogram Procedures US BREAST LTD RIGHT US BREAST UNI REAL TIME WITH IMAGE LIMITED Wilver Jones MD [address] [place] [address] Br Imaging [address] [place] [address] Referral ID Status Reason Start Date Expiration Date Visits Requested Visits Authorized [id number] New Request Auto-Generat ed Referral 10/20/2023 11/18/2024 1 1 * Diagnostic Procedure Only (Routine) - New Request Specialty Diagnoses / Procedures Referred By Ashish riggins Referred To Contact BR IMAGING Diagnoses Encounter for screening for malignant neoplasm of breast, unspecified screening modality Procedures ANSELMO SCREENING W LAUREANO SCREENING DIGITAL BREAST TOMOSYNTHESIS BI SCREENING MAMMOGRAPHY BI 2-VIEW BREAST INC CAD Wilver Jones MD [address] [place] [address] Br Imaging [address] [place] [address] Referral ID Status Reason Start Date Expiration Date Visits Requested Visits Authorized [id number] New Request Auto-Generat ed Referral 10/20/2023 11/18/2024 1 1 [facility] for referral (narrative)No reason for referral information availableWPremier Health [facility] Work Phone: Reason for visit Narrative* Diagnostic Procedure Only (Routine) - Closed Specialty Diagnoses / Procedures Referred By Ashish riggins Referred To Contact Radiology / [facility] Diagnoses Other chest pain [R07.89] NM CARDIAC PERF STRESS/PHARM Procedures NUCLEAR STRESS TEST Katherine York, GENERAL PRODUCTION LABORER.FOOD SERVICE CASHIER [address] [place] [address] [facility] [address] [place] [address] Referral ID Status Reason Start Date Expiration Date Visits Re quested Visits Authorized [id number] Closed 07/22/2022 10/20/2022 1 1 [facility] for visit Narrative* Diagnostic Procedure Only (Routine) - Closed Specialty Diagnoses / Procedures Referred By Contac t Referred To Contact Cardiology / [facility] Diagnoses Other chest pain [R07.89] NM CARDIAC PERF STRESS/PHARM Procedures NUCLEAR STRESS TEST Katherine Lozano, DORON.FOOD SERVICE CASHIER [address] [place] [address] Card Lab [facility] [address] [place] [address] Referral ID Status Reason Start Date Expiration Date Visits Re quested Visits Authorized [id number] Closed 07/22/2022 10/20/2022 1 1 [facility] for visit Narrative* Diagnostic Procedure Only (Routine) - Closed Specialty Diagnoses / Procedures Referred By Contfabián riggins Referred To Contact BR IMAGING Diagnoses Encounter for screening mammogram for malignant neoplasm of breast Procedures ANSELMO SCREENING SCREENING MAMMOGRAPHY BI 2-VIEW BREAST INC CAD Wilver Jones MD [address] [place] [address] Br Imaging [address] [place] [address] Referral ID Status Reason Start Date Expiration Date V isits Requested Visits Authorized [id number] Closed Auto-Generate d Referral 07/09/2022 08/08/2023 1 1 [facility] Advance Directives No Advanced Directives Records FoundDocuments on File Type Date Recorded 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 Advance Directive(s) 11/04/2018 7:38 AM Advance Directive(s) 10/26/2018 12:52 PM Advance Directive(s) 01/14/2018 9:18 AM Advance Directive(s) 12/28/2017 7:19 AM Advance Directive Response Recorded Date/ Time Living Will No December 20 4:13am Power of Director Of Advertising Sales No December 20, 2021 4:13am Advance Directive Response Recorded Date/ Time Living Will No January 06, 4:06pm Power of Director Of Advertising Sales No January 06, 2022 4:06pm Advance Directive Response Recorded Date/ Time Living Will No June 13, 2022 6:23am Power of Director Of Advertising Sales No June 13 6:23am Advance Directive Response Recorded Date/ Time Living Will No July 16, 2022 1 2:14pm Power of Director Of Advertising Sales No July 16, 2022 12:14pm Advance Directive Response Recorded Date/ Time Living Will No October 16 11:45am Power of Director Of Advertising Sales No October 16, 2022 11:45am Advance Directive Response Recorded Date/ Time Living Will No October 16 10:45am Power of Director Of Advertising Sales No October 16, 2022 10:45am Advance Directive Response Recorded Date/ Time Living Will No May 02, 2023 9:29am Power of Director Of Advertising Sales No May 01 9:29am Advance Directive Response Recorded Date/ Time Do you have a Healthcare Power of Director Of Advertising Sales? No September 04, 2024 4:44am Chief Complaint and Reason for Visit Chief [...] PLANTAR FACIAL FIBROMATOSIS LT FOOT RX HERE Chief Complaint Admit Date SORE THROAT June 04, 2024 11: 37am BREAST OTHER September 04, 2024 4:43 am Reason for Visit Admit Date URI (upper respiratory infection) June 04, 2024 11:37am Family History No Family History Records Found Relationship Condition Age at Onset Recorded Date/T kamron Not Specified Angina at rest Unknown Depression Unknown Cardiac disease Unknown Bipolar I disorder Unknown Reason for Referral Specialty Diagnoses / Procedures Referred By Ashish t Referred To Contact [facility] Diagnoses Vertigo Procedures CONSULT TO PHYSICAL THERAPY PHYSICAL THERAPY EVALUATION HIGH COMPLEX 45 MINS Wilver Jones MD [address] [place] [address] [facility] [place] [address] [place] [address] Referral ID Status Reason Start Date Expiration Date Visits Requested Visits Authorized [id number] Pending Review Auto-Generat ed Referral 2 01/09/2023 1 1 Specialty Diagnoses / Procedures Referred By Contac t Referred To Contact Ent - Otolaryngology Diagnoses Chronic vertigo Tinnitus of right ear Procedures CONSULT TO ENT OFFICE/OUTPATIENT [facility] 60-74 MINUTES Sherwin Edwards PA-C [address] [place] [address] Referral ID Status Reason Start Date Expiration Date Visits Requested Visits Authorized [id number] Authorized PCP Requested Referral 01/23/2022 01/23/2023 1 1 Specialty Diagnoses / Procedures Referred By Contac t Referred To Contact [facility] Diagnoses Vertigo Procedures PT REHAB FOLLOW UP ORDER THERAPEUTIC EXERCISES RE, EA 15 MIN. Jennifer Phillips, PT [facility] [place] [address] [place] [address] Referral ID Status Reason Start Date Expiration Date Visits Requested Visits Authorized [id number] Pending Review PCP Requested Referral Auto-Generate d Referral 2 04/28/2022 1 1 Specialty Diagnoses / Procedures Referred By Contac t Referred To Contact [facility] Diagnoses Dizziness Procedures CONSULT TO PHYSICAL THERAPY PHYSICAL THERAPY EVALUATION HIGH COMPLEX 45 MINS Katherine Lozano, DORON.FOOD SERVICE CASHIER [address] [place] [address] [facility] [place] [address] [place] [address] Referral ID Status Reason Start Date Expiration Date Visits Requested Visits Authorized [id number] Pending Review Auto-Generat ed Referral 04/01/2022 04/01/2023 1 1 Specialty Diagnoses / Procedures Referred By Contac t Referred To Contact Allergy Diagnoses Dermatographic urticaria Itching Procedures CONSULT TO ALLERGY/IMMUNOLOGY OFFICE/OUTPATIENT [facility] 60-74 MINUTES Katherine Lozano, GENERAL PRODUCTION LABORER.FOOD SERVICE CASHIER [address] [place] [address] Referral ID Status Reason Start Date Expiration Date Visits Requested Visits Authorized [id number] Authorized PCP Requested Referral 04/01/2022 04/01/2023 1 1 Specialty Diagnoses / Procedures Referred By Contac t Referred To Contact Wilver Jones MD [address] [place] [address] Referral ID Status Reason Start Date Expiration Date Visits Re quested Visits Authorized [id number] Closed 1 1 Specialty Diagnoses / Procedures Referred By Contac t Referred To Contact [facility] Diagnoses Sciatica, right side Procedures CONSULT TO PHYSICAL THERAPY PHYSICAL THERAPY EVALUATION HIGH COMPLEX 45 MINS Wilver Jones MD [address] [place] [address] [facility] [place] [address] [place] [address] Referral ID Status Reason Start Date Expiration Date Visits Requested Visits Authorized [id number] Pending Review Auto-Generat ed Referral 05/07/2023 05/06/2024 [...] or prosecute any alcohol or drug abuse patient.[facility] the event this information is protected by the Federal Confidentiality of Alcohol and Drug Abuse Patient Records regulations: The Federal rules restrict any use of the information to criminally investigate or prosecute any alcohol or drug abuse patient.[facility] HospitalIn the event this information is protected by the Federal Confidentiality of Alcohol and Drug Abuse Patient Records regulations: The Federal rules restrict any use of the information to criminally investigate or prosecute any alcohol or drug abuse patient.[facility] HospitalIn the event this information is protected by the Federal Confidentiality of Alcohol and Drug Abuse Patient Records regulations: The Federal rules restrict any use of the information to criminally investigate or prosecute any alcohol or drug abuse patient.[facility] HospitalIn the event this information is protected by the Federal Confidentiality of Alcohol and Drug Abuse Patient Records regulations: The Federal rules restrict any use of the information to criminally investigate or prosecute any alcohol or drug abuse patient.[facility] HospitalIn the event this information is protected by the Federal Confidentiality of Alcohol and Drug Abuse Patient Records regulations: The Federal rules restrict any use of the information to criminally investigate or prosecute any alcohol or drug abuse patient.[facility] HospitalIn the event this information is protected by the Federal Confidentiality of Alcohol and Drug Abuse Patient Records regulations: The Federal rules restrict any use of the information to criminally investigate or prosecute any alcohol or drug abuse patient.[facility] HospitalIn the event this information is protected by the Federal Confidentiality of Alcohol and Drug Abuse Patient Records regulations: The Federal rules restrict any use of the information to criminally investigate or prosecute any alcohol or drug abuse patient.[facility] HospitalIn the event this information is protected by the Federal Confidentiality of Alcohol and Drug Abuse Patient Records regulations: The Federal rules restrict any use of the information to criminally investigate or prosecute any alcohol or drug abuse patient.[facility] HospitalIn the event this information is protected by the Federal Confidentiality of Alcohol and Drug Abuse Patient Records regulations: The Federal rules restrict any use of the information to criminally investigate or prosecute any alcohol or drug abuse patient.[facility] HospitalIn the event this information is protected by the Federal Confidentiality of Alcohol and Drug Abuse Patient Records regulations: The Federal rules restrict any use of the information to criminally investigate or prosecute any alcohol or drug abuse patient.[facility] HospitalIn the event this information is protected by the Federal Confidentiality of Alcohol and Drug Abuse Patient Records regulations: The Federal rules restrict any use of the information to criminally investigate or prosecute any alcohol or drug abuse patient.[facility] HospitalIn the event this information is protected by the Federal Confidentiality of Alcohol and Drug Abuse Patient Records regulations: The Federal rules restrict any use of the information to criminally investigate or prosecute any alcohol or drug abuse patient.[facility] HospitalIn the event this information is protected by the Federal Confidentiality of Alcohol and Drug Abuse Patient Records regulations: The Federal rules restrict any use of the information to criminally investigate or prosecute any alcohol or drug abuse patient.[facility] HospitalIn the event this information is protected by the Federal Confidentiality of Alcohol and Drug Abuse Patient Records regulations: The Federal rules restrict any use of the information to criminally investigate or prosecute any alcohol or drug abuse patient.[facility] HospitalIn the event this information is protected by the Federal Confidentiality of Alcohol and Drug Abuse Patient Records regulations: The Federal rules restrict any use of the information to criminally investigate or prosecute any alcohol or drug abuse patient.[facility] HospitalIn the event this information is protected by the Federal Confidentiality of Alcohol and Drug Abuse Patient Records regulations: The Federal rules restrict any use of the information to criminally investigate or prosecute any alcohol or drug abuse patient.[facility] HospitalIn the event this information is protected by the Federal Confidentiality of Alcohol and Drug Abuse Patient Records regulations: The Federal rules restrict any use of the information to criminally investigate or prosecute any alcohol or drug abuse patient.[facility] HospitalIn the event this information is protected by the Federal Confidentiality of Alcohol and Drug Abuse Patient Records regulations: The Federal rules restrict any use of the information to criminally investigate or prosecute any alcohol or drug abuse patient.[facility] HospitalIn the event this information is protected [...] or prosecute any alcohol or drug abuse patient.[facility] HospitalIn the event this information is protected by the Federal Confidentiality of Alcohol and Drug Abuse Patient Records regulations: The Federal rules restrict any use of the information to criminally investigate or prosecute any alcohol or drug abuse patient.[facility] HospitalIn the event this information is protected by the Federal Confidentiality of Alcohol and Drug Abuse Patient Records regulations: The Federal rules restrict any use of the information to criminally investigate or prosecute any alcohol or drug abuse patient.[facility] HospitalIn the event this information is protected by the Federal Confidentiality of Alcohol and Drug Abuse Patient Records regulations: The Federal rules restrict any use of the information to criminally investigate or prosecute any alcohol or drug abuse patient.[facility] HospitalIn the event this information is protected by the Federal Confidentiality of Alcohol and Drug Abuse Patient Records regulations: The Federal rules restrict any use of the information to criminally investigate or prosecute any alcohol or drug abuse patient.[facility] HospitalIn the event this information is protected by the Federal Confidentiality of Alcohol and Drug Abuse Patient Records regulations: The Federal rules restrict any use of the information to criminally investigate or prosecute any alcohol or drug abuse patient.[facility] HospitalIn the event this information is protected by the Federal Confidentiality of Alcohol and Drug Abuse Patient Records regulations: The Federal rules restrict any use of the information to criminally investigate or prosecute any alcohol or drug abuse patient.[facility] HospitalIn the event this information is protected by the Federal Confidentiality of Alcohol and Drug Abuse Patient Records regulations: The Federal rules restrict any use of the information to criminally investigate or prosecute any alcohol or drug abuse patient.[facility] HospitalIn the event this information is protected by the Federal Confidentiality of Alcohol and Drug Abuse Patient Records regulations: The Federal rules restrict any use of the information to criminally investigate or prosecute any alcohol or drug abuse patient.[facility] HospitalIn the event this information is protected by the Federal Confidentiality of Alcohol and Drug Abuse Patient Records regulations: The Federal rules restrict any use of the information to criminally investigate or prosecute any alcohol or drug abuse patient.[facility] HospitalIn the event this information is protected by the Federal Confidentiality of Alcohol and Drug Abuse Patient Records regulations: The Federal rules restrict any use of the information to criminally investigate or prosecute any alcohol or drug abuse patient.[facility] HospitalIn the event this information is protected by the Federal Confidentiality of Alcohol and Drug Abuse Patient Records regulations: The Federal rules restrict any use of the information to criminally investigate or prosecute any alcohol or drug abuse patient.[facility] HospitalIn the event this information is protected by the Federal Confidentiality of Alcohol and Drug Abuse Patient Records regulations: The Federal rules restrict any use of the information to criminally investigate or prosecute any alcohol or drug abuse patient.[facility] HospitalIn the event this information is protected by the Federal Confidentiality of Alcohol and Drug Abuse Patient Records regulations: The Federal rules restrict any use of the information to criminally investigate or prosecute any alcohol or drug abuse patient.[facility] HospitalIn the event this information is protected by the Federal Confidentiality of Alcohol and Drug Abuse Patient Records regulations: The Federal rules restrict any use of the information to criminally investigate or prosecute any alcohol or drug abuse patient.[facility] HospitalIn the event this information is protected by the Federal Confidentiality of Alcohol and Drug Abuse Patient Records regulations: The Federal rules restrict any use of the information to criminally investigate or prosecute any alcohol or drug abuse patient.[facility] HospitalIn the event this information is protected by the Federal Confidentiality of Alcohol and Drug Abuse Patient Records regulations: The Federal rules restrict any use of the information to criminally investigate or prosecute any alcohol or drug abuse patient.[facility] HospitalIn the event this information is protected by the Federal Confidentiality of Alcohol and Drug Abuse Patient Records regulations: The Federal rules restrict any use of the information to criminally investigate or prosecute any alcohol or drug abuse patient.[facility] HospitalIn the event this information is protected by the Federal Confidentiality of Alcohol and Drug Abuse Patient Records regulations: The Federal rules restrict any use of the information to criminally investigate or prosecute any alcohol or drug abuse patient.[facility] HospitalIn the event this information is protected by the Federal Confidentiality of Alcohol and Drug Abuse Patient Records regulations: The Federal rules restrict any use of the information to criminally investigate or prosecute any alcohol or drug abuse patient.[facility] HospitalIn the event this information is protected by the Federal Confidentiality of Alcohol and Drug Abuse Patient Records regulations: The Federal rules restrict any use of the information to criminally investigate or prosecute any alcohol or drug abuse patient.[facility] HospitalIn the event this information is protected by the Federal Confidentiality of Alcohol and Drug Abuse Patient Records regulations: The Federal rules restrict any use of the information to criminally investigate or prosecute any alcohol or drug abuse patient.[facility] HospitalIn the event this information is protected by the Federal Confidentiality of Alcohol and Drug Abuse Patient Records regulations: The Federal rules restrict any use of the information to criminally investigate or prosecute any alcohol or drug abuse patient.[facility] HospitalIn the event this information is protected by the Federal Confidentiality of Alcohol and Drug Abuse Patient Records regulations: The Federal rules restrict any use of the information to criminally investigate or prosecute any alcohol or drug abuse patient.[facility] HospitalIn the event this information is protected by the Federal Confidentiality of Alcohol and Drug Abuse Patient Records regulations: The Federal rules restrict any use of the information to criminally investigate or prosecute any alcohol or drug abuse patient.[facility] HospitalIn the event this information is protected by the Federal Confidentiality of Alcohol and Drug Abuse Patient Records regulations: The Federal rules restrict any use of the information to criminally investigate or prosecute any alcohol or drug abuse patient.[facility] HospitalIn the event this information is protected by the Federal Confidentiality of Alcohol and Drug Abuse Patient Records regulations: The Federal rules restrict any use of the information to criminally investigate or prosecute any alcohol or drug abuse patient.[facility] HospitalIn the event this information is protected by the Federal Confidentiality of Alcohol and Drug Abuse Patient Records regulations: The Federal rules restrict any use of the information to criminally investigate or prosecute any alcohol or drug abuse patient.[facility] HospitalIn the event this information is protected by the Federal Confidentiality of Alcohol and Drug Abuse Patient Records regulations: The Federal rules restrict any use of the information to criminally investigate or prosecute any alcohol or drug abuse patient.[facility] HospitalIn the event this information is protected by the Federal Confidentiality of Alcohol and Drug Abuse Patient Records regulations: The Federal rules restrict any use of the information to criminally investigate or prosecute any alcohol or drug abuse patient.[facility] HospitalIn the event this information is protected by the Federal Confidentiality of Alcohol and Drug Abuse Patient Records regulations: The Federal rules restrict any use of the information to criminally investigate or prosecute any alcohol or drug abuse patient.[facility] HospitalIn the event this information is protected by the Federal Confidentiality of Alcohol and Drug Abuse Patient Records regulations: The Federal rules restrict any use of the information to criminally investigate or prosecute any alcohol or drug abuse patient.[facility] HospitalIn the event this information is protected by the Federal Confidentiality of Alcohol and Drug Abuse Patient Records regulations: The Federal rules restrict any use of the information to criminally investigate or prosecute any alcohol or drug abuse patient.[facility] HospitalIn the event this information is protected by the Federal Confidentiality of Alcohol and Drug Abuse Patient Records regulations: The Federal rules restrict any use of the information to criminally investigate or prosecute any alcohol or drug abuse patient.[facility] HospitalIn the event this information is protected by the Federal Confidentiality of Alcohol and Drug Abuse Patient Records regulations: The Federal rules restrict any use of the information to criminally investigate or prosecute any alcohol or drug abuse patient.[facility] HospitalIn the event this information is protected by the Federal Confidentiality of Alcohol and Drug Abuse Patient Records regulations: The Federal rules restrict any use of the information to criminally investigate or prosecute any alcohol or drug abuse patient.[facility] HospitalIn the event this information is protected by the Federal Confidentiality of Alcohol and Drug Abuse Patient Records regulations: The Federal rules restrict any use of the information to criminally investigate or prosecute any alcohol or drug abuse patient.[facility] HospitalIn the event this information is protected by the Federal Confidentiality of Alcohol and Drug Abuse Patient Records regulations: The Federal rules restrict any use of the information to criminally investigate or prosecute any alcohol or drug abuse patient.[facility] HospitalIn the event this information is protected by the Federal Confidentiality of Alcohol and Drug Abuse Patient Records regulations: The Federal rules restrict any use of the information to criminally investigate or prosecute any alcohol or drug abuse patient.[facility] HospitalIn the event this information is protected by the Federal Confidentiality of Alcohol and Drug Abuse Patient Records regulations: The Federal rules restrict any use of the information to criminally investigate or prosecute any alcohol or drug abuse patient.[facility] HospitalIn the event this information is protected by the Federal Confidentiality of Alcohol and Drug Abuse Patient Records regulations: The Federal rules restrict any use of the information to criminally investigate or prosecute any alcohol or drug abuse patient.[facility] HospitalIn the event this information is protected by the Federal Confidentiality of Alcohol and Drug Abuse Patient Records regulations: The Federal rules restrict any use of the information to criminally investigate or prosecute any alcohol or drug abuse patient.[facility] HospitalIn the event this information is protected by the Federal Confidentiality of Alcohol and Drug Abuse Patient Records regulations: The Federal rules restrict any use of the information to criminally investigate or prosecute any alcohol or drug abuse patient.[facility] HospitalIn the event this information is protected by the Federal Confidentiality of Alcohol and Drug Abuse Patient Records regulations: The Federal rules restrict any use of the information to criminally investigate or prosecute any alcohol or drug abuse patient.[facility] HospitalIn the event this information is protected by the Federal Confidentiality of Alcohol and Drug Abuse Patient Records regulations: The Federal rules restrict any use of the information to criminally investigate or prosecute any alcohol or drug abuse patient.[facility] HospitalIn the event this information is protected by the Federal Confidentiality of Alcohol and Drug Abuse Patient Records regulations: The Federal rules restrict any use of the information to criminally investigate or prosecute any alcohol or drug abuse patient.[facility] HospitalIn the event this information is protected by the Federal Confidentiality of Alcohol and Drug Abuse Patient Records regulations: The Federal rules restrict any use of the information to criminally investigate or prosecute any alcohol or drug abuse patient.[facility] HospitalIn the event this information is protected by the Federal Confidentiality of Alcohol and Drug Abuse Patient Records regulations: The Federal rules restrict any use of the information to criminally investigate or prosecute any alcohol or drug abuse patient.[facility] HospitalIn the event this information is protected by the Federal Confidentiality of Alcohol and Drug Abuse Patient Records regulations: The Federal rules restrict any use of the information to criminally investigate or prosecute any alcohol or drug abuse patient.[facility] HospitalIn the event this information is protected [...] or prosecute any alcohol or drug abuse patient.[facility] Care Teams (unrecognized sec tion and content) Seed Cleaning Manager Relationship Specialty Start Date End Date Wilver Jones MD [address] [place] [address] PCP - General Family Practice 11/18/17 Seed Cleaning Manager Relationship Specialty Start Date End Date Wilver Jones MD [address] [place] [address] PCP - General Family Practice 11/18/17 Seed Cleaning Manager Relationship Specialty Start Date End Date Wilver Jones MD [address] [place] [address] PCP - General Family Practice 11/18/17 Seed Cleaning Manager Relationship Specialty Start Date End Date Wilver Jones MD [address] [place] [address] PCP - General Family Practice 11/18/17 Seed Cleaning Manager Relationship Specialty Start Date End Date Wilver Jones MD [address] [place] [address] PCP - General Family Medicine 11/18/17 Seed Cleaning Manager Relationship Specialty Start Date End Date Wilver Jones MD [address] [place] [address] PCP - General Family Medicine 11/18/17 Seed Cleaning Manager Relationship Specialty Start Date End Date Wilver Jones MD [address] [place] [address] PCP - General Family Medicine 11/18/17 Seed Cleaning Manager Relationship Specialty Start Date End Date Wilver Jones MD [address] [place] [address] PCP - General Family Medicine 11/18/17 Seed Cleaning Manager Relationship Specialty Start Date End Date Wilver Jones MD [address] [place] [address] PCP - General Family Medicine 11/18/17 Seed Cleaning Manager Relationship Specialty Start Date End Date Wilver Jones MD [address] [place] [address] PCP - General Family Medicine 11/18/17 Seed Cleaning Manager Relationship Specialty Start Date End Date Wilver Jones MD [address] [place] [address] PCP - General Family Medicine 11/18/17 Seed Cleaning Manager Relationship Specialty Start Date End Date Wilver Jones MD [address] [place] [address] PCP - General Family Medicine 11/18/17 Seed Cleaning Manager Relationship Specialty Start Date End Date Wilver Jones MD [address] [place] [address] PCP - General Family Medicine 11/18/17 Seed Cleaning Manager Relationship Specialty Start Date End Date Wilver Jones MD [address] [place] [address] PCP - General Family Medicine 11/18/17 Seed Cleaning Manager Relationship Specialty Start Date End Date Wilver Jones MD [address] [place] [address] PCP - General Family Medicine 11/18/17 Seed Cleaning Manager Relationship Specialty Start Date End Date Wilver Jones MD [address] [place] [address] PCP - General Family Medicine 11/18/17 Seed Cleaning Manager Relationship Specialty Start Date End Date Wilver Jones MD [address] [place] [address] PCP - General Family Medicine 11/18/17 Seed Cleaning Manager Relationship Specialty Start Date End Date Wilver Jones MD [address] [place] [address] PCP - General Family Medicine 11/18/17 Team Status: Active Member Role Status Dates Dr. Wilver Jones MD Family Provider Active Dr. Wilver Jones MD Primary Care Provider Active Team Status: Inactive Member Role Status Dates Dr. Wilver Jones MD Primary Care Provider Active Dr. Fabrizio Vanegas DO Emergency Provider Active Seed Cleaning Manager Relationship Specialty Start Date End Date Wilver Jones MD [address] [place] [address] PCP - General Family Medicine 11/18/17 Seed Cleaning Manager Relationship Specialty Start Date End Date Wilver Jones MD [address] [place] [address] PCP - General Family Medicine 11/18/17 Seed Cleaning Manager Relationship Specialty Start Date End Date Wilver Jones MD [address] [place] [address] PCP - General Family Medicine 11/18/17 Team [...] Yuan DPM Attending Provider, Referring Provider Active Seed Cleaning Manager Relationship Specialty Start Date End Date Wilver Jones MD [address] [place] [address] PCP - General Family Medicine 11/18/17 Team Status: Inactive Member Role Status Dates Dr. Wilver Jones MD Primary Care Provider Active Dr. Rakan Espino DO Emergency Provider Active Seed Cleaning Manager Relationship Specialty Start Date End Date Wilver Jones MD [address] [place] [address] PCP - General Family Medicine 11/18/17 Seed Cleaning Manager Relationship Specialty Start Date End Date Wilver Jones MD [address] [place] [address] PCP - General Family Medicine 11/18/17 Seed Cleaning Manager Relationship Specialty Start Date End Date Wilver Jones MD [address] [place] [address] PCP - General Family Medicine 11/18/17 Team Status: Inactive Member Role Status Dates Dr. Wilver Jones MD Primary Care Provider Active Dr. Rakan Espino , Attending Provider, Emergency Provider Active Seed Cleaning Manager Relationship Specialty Start Date End Date Wilver Jones MD [address] [place] [address] PCP - General Family Medicine 11/18/17 Seed Cleaning Manager Relationship Specialty Start Date End Date Wilver Jones MD [address] [place] [address] PCP - General Family Medicine 11/18/17 Seed Cleaning Manager Relationship Specialty Start Date End Date Wilver Jones MD [address] [place] [address] PCP - General Family Medicine 11/18/17 Seed Cleaning Manager Relationship Specialty Start Date End Date Wilver Jones MD [address] [place] [address] PCP - General Family Medicine 11/18/17 Seed Cleaning Manager Relationship Specialty Start Date End Date Wilver Jones MD [address] [place] [address] PCP - General Family Medicine 11/18/17 Seed Cleaning Manager Relationship Specialty Start Date End Date Wilver Jones MD [address] [place] [address] PCP - General Family Medicine 11/18/17 Seed Cleaning Manager Relationship Specialty Start Date End Date Wilver Jones MD [address] [place] [address] PCP - General Family Medicine 11/18/17 Seed Cleaning Manager Relationship Specialty Start Date End Date Wilver Jones MD [address] [place] [address] PCP - General Family Medicine 11/18/17 Seed Cleaning Manager Relationship Specialty Start Date End Date Wilver Jones MD [address] [place] [address] PCP - General Family Medicine 11/18/17 Team Status: Inactive Member Role Status Dates Dr. Wilver Jones MD Primary Care Provider Active Dr. Bal Yuan DPM Attending Provider Active Seed Cleaning Manager Relationship Specialty Start Date End Date Wilver Jones MD [address] [place] [address] PCP - General Family Medicine 11/18/17 Seed Cleaning Manager Relationship Specialty Start Date End Date Wilver Jones MD [address] [place] [address] PCP - General Family Medicine 11/18/17 Seed Cleaning Manager Relationship Specialty Start Date End Date Wilver Jones MD [address] [facility], [place] [address] PCP - General Family Medicine 11/18/17 Seed Cleaning Manager Relationship Specialty Start Date End Date Wilver Jones MD [address] [place], [place] [address] PCP - General Family Medicine 11/18/17 Seed Cleaning Manager Relationship Specialty Start Date End Date Wilver Jones MD [address] [place], [place] [address] PCP - General Family Medicine 11/18/17 Team Status: Inactive Member Role Status Dates Dr. Wilver Jones MD Primary Care Provider Active Dr. Yamila Butt , Emergency Provider Active Seed Cleaning Manager Relationship Specialty Start Date End Date Wilver Jones MD [address] [place], [place] [address] PCP - General Family Medicine 11/18/17 Team Status: Active Member Role Status Dates Dr. Wilver Jones MD Primary Care Provider Active Dr. Bal Yuan , DPM Referring Provider, Other Pro vider Active Dr. Cam Hall MD Attending Provider Active Team Status: Inactive Member Role Status Dates Dr. Wilver Jones MD Primary Care Provider Active Dr. Yamila Butt DO Attending Provider, Emergency Pro vider Active Seed Cleaning Manager Relationship Specialty Start Date End Date Wilver Jones MD [address] [facility], [place] [address] PCP - General Family Medicine 11/18/17 Seed Cleaning Manager Relationship Specialty Start Date End Date Wilver Jones MD [address] [facility], [place] [address] PCP - General Family Medicine 11/18/17 Seed Cleaning Manager Relationship Specialty Start Date End Date Wilver Jones MD [address] [place], [place] [address] PCP - General Family Medicine 11/18/17 Seed Cleaning Manager Relationship Specialty Start Date End Date Wilver Jones MD [address] [place], [place] [address] PCP - General Family Medicine 11/18/17 Seed Cleaning Manager Relationship Specialty Start Date End Date Wilver Jones MD [address] [place] [address] PCP - General Family Medicine 11/18/17 Seed Cleaning Manager Relationship Specialty Start Date End Date Wilver Jones MD [address] [place] [address] PCP - General Family Medicine 11/18/17 Seed Cleaning Manager Relationship Specialty Start Date End Date Wilver Jones MD [address] [place] [address] PCP - General Family Medicine 11/18/17 Seed Cleaning Manager Relationship Specialty Start Date End Date Wilver Jones MD [address] [place] [address] PCP - General Family Medicine 11/18/17 Katherine Lozano APRN.FOOD SERVICE CASHIER [address] [place] [address] [employer] [facility] Family [facility] 01/24/24 Clover Martin APRN.FOOD SERVICE CASHIER [address] [place] [address] [employer] [facility] 01/24/24 Seed Cleaning Manager Relationship Specialty Start Date End Date Wilver Jones MD [address] [place] [address] PCP - General Family Medicine 11/18/17 Katherine Lozano APRN.FOOD SERVICE CASHIER [address] [facility] [address] [employer] Family Medicine 01/24/24 Clover Martin APRN.FOOD SERVICE CASHIER [address] [place] [address] [facility] Medicine 01/24/24 Seed Cleaning Manager Relationship Specialty Start Date End Date Wilver Jones MD [address] [place] [address] PCP - General Family Medicine 11/18/17 Katherine Lozano APRN.FOOD SERVICE CASHIER [address] [place] [address] [facility] 01/[facility]/24 Clover Martin GENERAL PRODUCTION LABORER.FOOD SERVICE CASHIER [address] [place] [address] [facility] Seed Cleaning Manager Relationship Specialty Start Date End Date Wilver Jones MD [address] [place] [address] PCP - General Family Medicine 11/18/17 Katherine Lozano APRN.FOOD SERVICE CASHIER [address] [place] [address] [employer] [facility] 01/24/24 Clover Martin APRN.FOOD SERVICE CASHIER [address] [facility], [place] [address] [facility] 01/24/24 Seed Cleaning Manager Relationship Specialty Start Date End Date Wilver Jones MD [address] [facility], [place] [address] PCP - General Family Medicine 11/18/17 Katherine Lozano GENERAL PRODUCTION LABORER.FOOD SERVICE CASHIER [address] [facility] [place] [address] [facility] 01/24/24 Clover Martin GENERAL PRODUCTION LABORER.FOOD SERVICE CASHIER [address] [facility], [place] [address] [facility] 01/24/24 Team Status: Active Member Role/Relationship Status Dates Dr. Wilver oJnes MD Primary Care Provider Active Team Status: Inactive Member Role/Relationship Status Dates Dr. Wilver Jones MD Primary Care Provider Active Start: June 04, 2024 End: June 04, 2024 Dr. Wilver Jones MD Referring Provider Active Start: June 04, 2024 End: June 04, 2024 Temo Goss FEED MILLER, FEED MILLER-C Attending Provider Active S tart: June 04, 2024 End: June 04, 2024 Team Status: Inactive Member Role/Relationship Status Dates Dr. Wilver Jones MD Primary Care Provider Active Start: September 04, 2024 End: September 04, 2024 Dr. Logan Yañez MD Emergency Provider Active Start: September 04, 2024 End: September 04, 2024 Seed Cleaning Manager Relationship Specialty Start Date End Date Wilver Jones MD [address] [facility], [place] [id number] PCP - General Family Medicine 11/18/17 Katherine Lozano, GENERAL PRODUCTION LABORER.FOOD SERVICE CASHIER [address] [facility], [place] [id number] [facility] 01/24/24 Clover Martin GENERAL PRODUCTION LABORER.FOOD SERVICE CASHIER [address] [place], [place] [address] [facility] 01/24/24 Seed Cleaning Manager Relationship Specialty Start Date End Date Wilver Jones MD [address] [place], [place] [id number] PCP - General Family Medicine 11/18/17 Katherine Lozano APRN.FOOD SERVICE CASHIER [address] [place], [place] [id number] [facility] 01/24/24 Clover Martin GENERAL PRODUCTION LABORER.FOOD SERVICE CASHIER [address] [place], [place] [id number] [facility] 01/24/24 Reason for Visit (unrecogniz ed section and content) Reason Comments Radiology US Specialty Diagnoses / Procedures Referred By Ashish riggins Referred To Contact [facility] Diagnoses Abnormal mammogram Procedures US BREAST LTD RIGHT US BREAST UNI REAL TIME WITH IMAGE LIMITED Wilver Jones MD [address] [place] [address] [facility] [address] [facility] [place] [address] Referral ID Status Reason Start Date Expiration Date V isits Requested Visits Authorized [id number] Closed Auto-Generate d Referral 07/16/2022 08/15/2023 1 [...] Referred By Ashish riggins Referred To Contact [facility] Diagnoses Vertigo Procedures CONSULT TO PHYSICAL THERAPY PHYSICAL THERAPY EVALUATION HIGH COMPLEX 45 MINS Wilver Jones MD [address] [place] [address] [facility] [place] [address] [address] Referral ID Status Reason Start Date Expiration Date V isits Requested Visits Authorized [id number] Closed Auto-Generate d Referral 02/15/2021 02/14/2022 1 1 Reason Comments Forms Reason Comments Follow Up Reason Onset Date Comments Population Health Navigation Outreach 03/26/2022 [facility]LY [facility] Medicaid Project Reason Comments Acute Visit L ear feels like the re is fluid in it Reason Comments New Patient Dermatographic urtic aria and itching Specialty Diagnoses / Procedures Referred By Contac t Referred To Contact Allergy Diagnoses Dermatographic urticaria Itching Procedures CONSULT TO ALLERGY/IMMUNOLOGY OFFICE/OUTPATIENT [facility] 60-74 MINUTES Katherine Lozano APRN.CNP [address] [place] [address] Referral ID Status Reason Start Date Expiration Date V isits Requested Visits Authorized [id number] Closed PCP Requested Referral 04/01/2022 04/01/2023 1 [...] cervical cancer Procedures CONSULT TO GYNECOLOGY OFFICE/OUTPATIENT [facility] 60-74 MINUTES Wilver Jones MD [address] [place] [address] Referral ID Status Reason Start Date Expiration Date V isits Requested Visits Authorized [id number] Closed PCP Requested Referral Auto-Generated Referral 07/09/2022 [...] FEMALE PELVIS TRANSVAG US TRANSVAGINAL Klaudia Cobb APRN.FOOD SERVICE CASHIER [address] [place] [address] [place] [address] Referral ID Status Reason Start Date Expiration Date V isits Requested Visits Authorized [id number] Closed Auto-Generate d Referral 07/15/2022 08/14/2023 1 1 Reason Comments Gastroesophageal Reflux Specialty Diagnoses / Procedures Referred By Ashish t Referred To Contact General Surgery Diagnoses Gastroesophageal reflux disease without esophagitis Procedures CONSULT TO GENERAL SURGERY OFFICE/OUTPATIENT [facility] 60-74 MINUTES Wilver Jones MD [address] [place] [address] Referral ID Status Reason Start Date Expiration Date V isits Requested Visits Authorized [id number] Closed PCP Requested Referral 12/07/2022 12/07/2023 1 1 Reason Comments Pain Left foot pain Reason Comments Appointment Reason Comments Recheck Reason Comments Forms Office of [facility] Director Of Advertising Sales, 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, [facility] Reason Comments Ear Pain RIGHT [...] neck, fatigue, sore throat, x 2 days Reason Onset Date Comments Refill Request 10/12/2024 Reason Comments Letter No Show #1 Goals (unrecognized section and content) Goals may [...] section and content) DATE CREATED AUTHOR 07/28/2022 [facility] DATE CREATED AUTHOR AUTHOR'S ORGANIZ ATION 08/15/2023 [facility] ([place]) DATE CREATED AUTHOR AUTHOR'S ORGANIZ ATION 09/09/2024 [facility] DATE CREATED AUTHOR AUTHOR'S ORGANIZ ATION 12/12/2024 [facility] FOR RECORDS PERTAINING TO PATIENTS WHO ARE [...] BE BASED ON THE PRIMARY CLINICAL RECORDS. [facility] [employer] [facility]. provides no warranty or guarantee of the accuracy or completeness of information in this document.
== END 2025-01-24 22:47 | disposition left against medical advice (07) ==
LOC: ED 22:59
PROVIDERS: PCP Family Medicine
DX: Z53.21 Procedure and treatment not carried out due to patient leaving prior to being seen by health care provider (principal)